=== PATIENT | female | born 1940 | race Caucasian/White ===

== ENCOUNTER 2023-03-31 16:11 | Observation (INO) | payer OTHER, SELFPAY ==
[2023-03-31] VITALS (11 sets, daily range): BP systolic 118–148; BP diastolic 56–81; PULSE 61–78; RESP 15–24; TEMP 37–37.9; O2SAT 91–99; BMI 34.9; BMI 35.4
--- NOTE | 2023-03-31 14:30 | US_ITS ---
[place] [id number] Patient Name: JOHANNA ESPINOSA MRN: [id number] date: 1940 Sex: F Assigned Patient Location: [place] Current Patient Location: [place] Accession/Order Number: [id number] Exam Date: 03/31/2023 14:30 Report Date: 04/01/2023 22:58 At the request of: ATIYA Shaffer SISTER Procedure: US carotid duplex BI EXAMINATION: US carotid duplex BI HISTORY: syncope COMPARISON: No relevant comparison available. TECHNIQUE: Duplex Doppler ultrasound analysis of carotid and vertebral arteries. . Bilateral carotid arterial duplex examination was performed using B-mode, color flow and spectral analysis. Carotid stenosis is reported according to validated velocity parameters, similar to NASCET criteria. FINDINGS: RIGHT CAROTID ARTERY: Marked irregular atherosclerotic plaque within carotid bulb; 75% diameter reduction and 71% area reduction. RIGHT VERTEBRAL: Antegrade flow. Subclavian: PSV: 125.9 cm/s EDV: 0.0 cm/s CCA: Prox: PSV: 59.0 cm/s EDV: 7.5 cm/s Mid: PSV: 60.7 cm/s EDV: 7.5 cm/s Distal: PSV: 54.6 cm/s EDV: 7.5 cm/s BULB: PSV: Not measured ICA: Prox: PSV: 202.2 cm/s EDV: 35.1 cm/s Mid: PSV: 149.2 cm/s EDV: 23.9 cm/s Distal: PSV: 185.4 cm/s EDV: 0.0 cm/s ECA: PSV: 176.9 cm/s EDV: 0.0 cm/s VERTEBRAL: PSV: 53.7 cm/s EDV: 5.4 cm/s ICA/CCA ratio: PSV: 3.7 EDV: 4.7 LEFT CAROTID ARTERY: Moderate atherosclerotic disease within distal common carotid and within the carotid bulb; 68% area reduction of the bulb. LEFT VERTEBRAL: Antegrade flow. Subclavian: PSV: 83.8 cm/s EDV: 9.5 cm/s CCA: Prox: PSV: 95.1 cm/s EDV: 0.0 cm/s Mid: PSV: 62.8 cm/s EDV: 0.0 cm/s Distal: PSV: Not measured BULB: PSV: 59.6 cm/s EDV: 6.3 cm/s ICA: Prox: PSV: 66.0 cm/s EDV: 14.4 cm/s Mid: PSV: 82.2 cm/s EDV: 22.4 cm/s Distal: PSV: EDV: ECA: PSV: 87.0 cm/s EDV: 0.0 cm/s VERTEBRAL: PSV: 45.5 cm/s EDV: 9.8 cm/s ICA/CCA ratio: PSV: 0.9 EDV: US/US carotid duplex BI IMPRESSION: 1. Marked atherosclerotic disease and 50-69% flow stenosis within the right carotid bulb. 2. Moderate atherosclerotic disease in 0-49% flow stenosis within left carotid bulb. Spectral Doppler US Thresholds Stenosis (%) PSV (cm/sec) VICA/VCCA 0-49 <150 <2.5 50-69 150-225 2.5-4.0 >70 >225 >4.0 Electronically authenticated by: PRIOM HARRISON Date: 04/01/2023 22:58
--- NOTE | 2023-03-31 16:20 | ECG_ITS ---
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
--- NOTE | 2023-03-31 16:20 | XR_ITS ---
The [address] [address] Patient Name: JOHANNA ESPINOSA MRN: [id number] date: 1940 Sex: F Assigned Patient Location: ER Current Patient Location: ED.MAIN Accession/Order Number: [id number] Exam Date: 03/31/2023 16:32 Report Date: 03/31/2023 17:43 At the request of: ADAN MEJIA Procedure: XR chest 1V EXAM: XR chest 1V REASON FOR EXAM: Female, 83 years, syncope. TECHNIQUE: A single AP view of the chest is performed. COMPARISON: 07/24/2012. FINDINGS: Cardiac monitoring leads overlie the chest. The lungs are expanded and clear. Normal pleura. Surgical clips project over the left chest. Normal size heart. Normal mediastinum and bradley. Normal visualized pulmonary arteries. Normal visualized aortic arch and descending thoracic aorta. Normal visualized thoracic spine. Normal visualized ribs, clavicles, and shoulders. There is no demonstrated abnormality of the visualized soft tissue structures of the upper abdomen. XR/XR chest 1V IMPRESSION: No acute process in the chest. Electronically authenticated by: JO-ANN WEAVER Date: 03/31/2023 17:43
--- NOTE | 2023-03-31 16:22 | ED_ITS ---
HPI - Syncope General Chief Complaint: Syncope Stated Complaint: SOB Time Seen by Provider: 03/31/23 16:20 Source: patient Mode of arrival: walk-in History of Present Illness HPI narrative: 83-year-old female presents for two syncopal episodes. She hasn't been feeling well today and cannot explain that any better. She is a poor historian. Family states that she passed out getting her into the car at home. She also passed out 2nd time in the registration area of the emergency department. She is complaining of headache and she has had no fever vomiting and doesn't complain of abdominal pain. Related Data Allergies Allergy/AdvReac Type Severity Reaction Status Date / Time No Known Drug Allergies Allergy Verified 03/31/23 17:26 Review of Systems ROS Narrative A ten point review of systems is negative except as noted above. Exam Narrative Exam Narrative: Nurses note and vital signs reviewed and patient is not hypoxic. General: The patient appears in no apparent distress from a respiratory standpoint. Skin: Warm, dry, no pallor noted. There is no rash noted. Head: Normocephalic, atraumatic Eye: Normal conjunctiva, no drainage Ears, Nose, Mouth, and Throat: oral mucosa is moist. Nares patent. Cardiovascular: Regular Rate and Rhythm Respiratory: Patient is in no distress, no accessory muscle use, lungs are clear to auscultation, no wheezing, rales or rhonchi Back: non-tender GI: soft and nontender Musculoskeletal: The patient has no evidence of calf tenderness, no pitting edema, symmetrical pulses noted bilaterally Neurological: A&O, she is tremorous Psychiatric: Cooperative Constitutional Vital Signs, click to edit/add: Last Vital Signs Temp 98.7 F 03/31/23 16:16 Pulse 66 03/31/23 17:00 Resp 15 03/31/23 18:11 BP 123/61 03/31/23 18:11 Pulse Ox 96 03/31/23 18:11 O2 Del Method Room Air 03/31/23 17:33 Course Vital Signs Vital signs: Vital Signs Temperature 98.7 F 03/31/23 16:16 Pulse Rate 70 03/31/23 16:16 Respiratory Rate 16 03/31/23 16:16 Blood Pressure 148/81 H 03/31/23 16:16 Pulse Oximetry 96 03/31/23 16:16 Oxygen Delivery Method Room Air 03/31/23 16:16 Temperature 98.7 F 03/31/23 16:16 Pulse Rate 66 03/31/23 17:00 Respiratory Rate 15 03/31/23 18:11 Blood Pressure 123/61 03/31/23 18:11 Pulse Oximetry 96 03/31/23 18:11 Oxygen Delivery Method Room Air 03/31/23 17:33 MDM - Syncope MDM Narrative Medical decision making narrative: Her workup including two troponins is negative. She has passed out twice today and she'll be admitted for observation. She's had no dysrhythmias here in the emergency department. Findings are discussed with the patient and her family. Differential Diagnosis Differential diagnosis: Likely syncope due to orthostatic hypotension, vasovagal syncope and complete atrioventricular block Lab Data Attestation: I reviewed the patient's lab results. Labs: Lab Results 03/31/23 03/31/23 03/31/23 Range/Units 16:18 16:21 17:46 WBC 5.7 (4.0-11.0) 10^3/uL RBC 3.94 L (4.20-5.40) 10^6/uL Hgb 11.6 L (12.0-16.0) g/dL Hct 36.3 (36.0-48.0) % MCV 92.1 (81.0-99.0) fL MCH 29.4 (26.7-34.0) pg MCHC 32.0 (29.9-35.2) g/dL RDW 13.7 (11.0-15.0) % Plt Count 107 L (150-450) 10^3/uL MPV 11.1 (9.5-13.5) fL Neut % (Auto) 67.2 (43.0-75.0) % Lymph % (Auto) 24.4 (20.5-60.0) % [place] % (Auto) 7.9 (1.7-12.0) % Eos % (Auto) 0.0 L (0.9-7.0) % Baso % (Auto) 0.2 (0.2-2.0) % Neut # (Auto) 3.9 (1.4-6.5) 10^3/uL Lymph # (Auto) 1.4 (1.2-3.8) 10^3/uL [place] # (Auto) 0.5 (0.3-0.8) 10^3/uL Eos # (Auto) 0.0 (0.0-0.7) 10^3/uL Baso # (Auto) 0.0 (0.0-0.1) 10^3/uL Abs Immat Gran (auto) 0.02 (0.00-0.03) 10^3/uL Imm/Tot Granulo (auto) 0.3 (0.0-0.5) % Sodium 140 (136-145) mmol/L Potassium 3.9 (3.5-5.1) mmol/L Chloride 103 (98-107) mmol/L Carbon Dioxide 25.3 (21.0-32.0) mmol/L Anion Gap 15.6 BUN 24.0 H (7.0-18.0) mg/dL Creatinine 1.17 H (0.55-1.02) mg/dL Est GFR ( Amer) 54 L (>=60) Est GFR (Non-Af Amer) 44 L (>=60) BUN/Creatinine Ratio 20.5 Glucose 121 H (74-106) mg/dL Calcium 8.8 (8.5-10.1) mg/dL Troponin I High Sens 15.5 15.8 (4.0-51.3) pg/mL POC Glucose 117 H (74-106) mg/dL Imaging Data Chest x-ray: Radiologist's impression: Procedure: XR chest 1V EXAM: XR chest 1V REASON FOR EXAM: Female, 83 years, syncope. TECHNIQUE: A single AP view of the chest is performed. COMPARISON: 07/24/2012. FINDINGS: Cardiac monitoring leads overlie the chest. The lungs are expanded and clear. Normal pleura. Surgical clips project over the left chest. Normal size heart. Normal mediastinum and bradley. Normal visualized pulmonary arteries. Normal visualized aortic arch and descending thoracic aorta. Normal visualized thoracic spine. Normal visualized ribs, clavicles, and shoulders. There is no demonstrated abnormality of the visualized soft tissue structures of the upper abdomen. IMPRESSION: No acute process in the chest. Electronically authenticated by: JO-ANN WEAVER Date: 03/31/2023 17:43 ECG Data Attestation: I personally reviewed and interpreted this ECG as follows: (EKG on my interpretation shows sinus rhythm without acute change in a rate of 71.) Discharge Plan Discharge Chief Complaint: Syncope Clinical Impression: Syncope Patient Disposition: Admitted as Observation Time of Disposition Decision: 18:31 Condition: Good
[2023-03-31 16:27] LABS: Glucometer 117 mg/dL (74-106)
[2023-03-31 16:32] LABS: Basophils Percent Auto 0.2 % (0.2-2.0); Hematocrit 36.3 % (36.0-48.0); Hemoglobin 11.6 g/dL (12.0-16.0); Immature Granulocytes Abs Auto 0.02 10^3/uL (0.00-0.03); Immature Granulocytes Pct Auto 0.3 % (0.0-0.5); Lymphocytes Absolute Auto 1.4 10^3/uL (1.2-3.8); Lymphocytes Percent Auto 24.4 % (20.5-60.0); Mean Corpuscular Hemoglobin 29.4 pg (26.7-34.0); Mean Corpuscular Volume 92.1 fL (81.0-99.0); Mean Platelet Volume 11.1 fL (9.5-13.5); Monocytes Absolute Auto 0.5 10^3/uL (0.3-0.8); Monocytes Percent Auto 7.9 % (1.7-12.0); Neutrophils Absolute Auto 3.9 10^3/uL (1.4-6.5); Neutrophils Percent Auto 67.2 % (43.0-75.0); Platelet Count 107 10^3/uL (150-450); Red Blood Count 3.94 10^6/uL (4.20-5.40); Red Cell Distribution Width 13.7 % (11.0-15.0); White Blood Count 5.7 10^3/uL (4.0-11.0)
[2023-03-31 16:44] LABS: Anion Gap 15.6; BUN Creatinine Ratio 20.5; Calcium 8.8 mg/dL (8.5-10.1); Carbon Dioxide 25.3 mmol/L (21.0-32.0); Chloride 103 mmol/L (98-107); Estimated GFR (African America 54 (>=60); Estimated GFR (Non-African Ame 44 (>=60); Glucose 121 mg/dL (74-106); Potassium 3.9 mmol/L (3.5-5.1); Sodium 140 mmol/L (136-145); Troponin I High Sensitivity 15.5 pg/mL (4.0-51.3)
[2023-03-31 18:10] LABS: Troponin I High Sensitivity 15.8 pg/mL (4.0-51.3)
[2023-03-31 19:53] LABS: Glucometer 101 mg/dL (74-106)
--- NOTE | 2023-03-31 21:34 | W.PM.TELEPN ---
Progress Note: Subjective Subjective Interval history: CC: Cough, this of breath, weakness, decreased appetite, recurrent syncopal episodes HPI: This is a very pleasant 83 years old female who presents with above complaints. Patient provides information by herself. Patient stating that over the course of the last 2 weeks she has not been feeling well describing cardiac, productive cough, generalized weakness and fatigue, shortness of breath. Patient been taking azithromycin orally. No much relief. She also complains of decreased appetite and getting progressively weak. She syncopized earlier today and then syncopized again in the emergency room. No arrhythmia during the event. Exam Narrative Exam Narrative: ROS: 1.General: no fever, chills, not in distress 2.HEENT: no PUENTE, no blurry vision, no swallow problems, no nasal congestion, no sore throat 3.Pulmonary: See above 4.CVS: no CP, no palpitations, no JOSE, no SOB, no intermittent claudication 5.GI: no nausea, vomiting or diarrhea, no abdominal pain, no constipation, no hematemesis or hematochezia 6.: no renal colic, no hematuria, urinary frequency or urgency 7.Extremities: no edema 8.Neurological: no dizziness, vertigo, double or blurry vision, no no focal weakness, no paresthesia, no swallow or speech problems 9.Musculosceletal: no joint pains, no joint swelling, no back pain 10.Dermatological: no skin rashes, no lesions, no pruritus 11.Hematological: no bleeding, no hx/o clots 12.Endocrinological: no heat/cold intolerance, + hx/o diabetes 13.Psychiatric: no suicidal or homicidal thoughts Physical Exam: Not in distress, pleasant, lucid, cooperative, Head - atraumatic, eyes - pupils equal, round, reactive to light, extra ocular movement intact, MMM Neck - supple, thyroid not enlarged, LN not palpated Lungs -coarse breath sounds bilaterally, mild wheezing CVS - heart sounds S1, S2, no additional murmurs gallop, regular rate and rhythm Gastrointestinal?abdomen is soft, non-tender, non-distended, no organomegaly, positive bowel sounds Extremities no clubbing, cyanosis or edema Neurological?cranial nerve II?XII grossly intact, no meningeal signs, no cerebellar signs, no sensory deficit Musculoskeletal - DJD related changes in multiple joints, no effusions, ROM preserved Dermatological - the skin dry, warm, no rashes Psychiatric?patient is AAO X3, patient has normal affect Constitutional Vital Signs, click to edit/add: Last Vital Signs Temp 98.6 F 03/31/23 19:30 Pulse 65 03/31/23 20:08 Resp 24 03/31/23 19:30 BP 125/69 03/31/23 19:30 Pulse Ox 92 L 03/31/23 19:30 O2 Del Method Room Air 03/31/23 20:03 Progress Note: Objective Labs Labs: Short CBC 03/31/23 Range/Units 16:21 WBC 5.7 (4.0-11.0) 10^3/uL Hgb 11.6 L (12.0-16.0) g/dL Hct 36.3 (36.0-48.0) % Plt Count 107 L (150-450) 10^3/uL BMP 03/31/23 16:21 Sodium 140 Potassium 3.9 Chloride 103 Carbon Dioxide 25.3 BUN 24.0 H Creatinine 1.17 H Glucose 121 H Calcium 8.8 Progress Note: A&P Assessment and Plan (1) Syncope: Assessment and Plan: Suspect related to poor oral intake lately. I noted patient been taking Lasix?going to hold that. I started patient on gentle, judicious IV fluid resuscitation Continue to monitor on telemetry Fall precautions No significant orthostatic changes and vital signs on admission I ordered echocardiogram and ultrasound of the carotids to delineate further (2) Bronchitis with bronchospasm: Assessment and Plan: Patient started on empiric, broad-spectrum antibiotics I wanted sputum culture Started patient on bronchodilators I added inhaled and systemic steroids Follow-up cultures, adjust as needed Probiotics also started. (3) Diabetes: Assessment and Plan: I am going to continue with ADA diet, coverage with insulin sliding scales based on Accu-Cheks. I started patient on long-acting insulin as well. (4) Hypertension: Assessment and Plan: Continue with home dose of losartan. Lasix on hold Plan As the provider for the telehealth service, I attest that I introduced myself to the patient, provided my credentials, disclosed by location and determined that based on a review of the patient's chart and discussion with members of the patient's treatment team, telemedicine via real-time, 2 way, and interactive audio and video platform is an appropriate and effective means of providing the service. ?The patient and I mutually agree this visit is appropriate for telemedicine. ?The virtual encounter was taken place from? [place], [place]. ?The encounter took approximately 35 minutes. ?The nurse was present during the entire time and I was able to move the stethoscope in appropriate directions. ?The patient was evaluated at the Hospital ? Portions of this note may be dictated using [employer] voice recognition software. Variances in spelling and vocabulary are possible and unintentional. Not all errors may be caught and/or corrected. Please notify the author if any discrepancies are noted and/or if the meaning of any statement is unclear.? ? Patient verbally consented for treatment via video visit with patient currently located at the [facility] and provider located in [place]. Telemedicine Attestation Telemedicine Attestation I conducted this encounter from [[place]] via secure live, [id number] video conference with the patient, located at [facility] with [syncopal]. Prior to the interview, the risks and benefits of telemedicine were discussed with the patient and verbal consent was obtained.
[2023-03-31] MEDS: 0.9 % SODIUM CHLORIDE 1,000 ML 75 ML IV (22:15)
[2023-03-31] MEDS: METHYLPREDNISOLONE SOD SUCC PF 40 MG/ML VIAL IVP (22:15)
[2023-03-31] MEDS: CEFTRIAXONE 1,000 MG in 0.9 % SODIUM CHLORIDE 50 ML 100 MG IV (22:16)
[2023-03-31] MEDS: BACLOFEN 10 MG TABLET PO (22:16)
[2023-03-31] MEDS: ACETAMINOPHEN 325 MG TABLET 650 MG PO (22:39)
[2023-03-31] MEDS: GUAIFENESIN 200 MG/10 ML LIQUID 100 MG PO (22:39)
[2023-03-31] MEDS: IPRATROPIUM/ALBUTEROL SULFATE 3 ML AMPUL.NEB IH (23:15)
[2023-03-31 23:27] LABS: SARS-CoV-2 Ag POSITIVE (NEGATIVE)
[2023-04-01] VITALS (18 sets, daily range): BP systolic 100–135; BP diastolic 51–75; PULSE 54–70; RESP 2–20; TEMP 36.4–36.7; O2SAT 1–97
--- NOTE | 2023-04-01 00:03 | PC.NURSE ---
Soccer Commentator notified Oneil Randle daughter emergency contact [phone] that patient is COVID positive.
[2023-04-01] MEDS: LEVOTHYROXINE SODIUM 25 MCG TABLET 50 MCG PO (04:48)
[2023-04-01] MEDS: METHYLPREDNISOLONE SOD SUCC PF 40 MG/ML VIAL IVP ×3 (04:48→21:17)
[2023-04-01] MEDS: BACLOFEN 10 MG TABLET PO ×3 (04:49→21:17)
[2023-04-01 05:15] LABS: Hemoglobin 11.2 g/dL (12.0-16.0); Immature Granulocytes Abs Auto 0.03 10^3/uL (0.00-0.03); Immature Granulocytes Pct Auto 0.7 % (0.0-0.5); Lymphocytes Absolute Auto 0.6 10^3/uL (1.2-3.8); Lymphocytes Percent Auto 12.8 % (20.5-60.0); Mean Corpuscular HGB Conc 30.3 g/dL (29.9-35.2); Mean Corpuscular Hemoglobin 29.1 pg (26.7-34.0); Mean Corpuscular Volume 96.1 fL (81.0-99.0); Mean Platelet Volume 11.8 fL (9.5-13.5); Monocytes Absolute Auto 0.3 10^3/uL (0.3-0.8); Monocytes Percent Auto 5.8 % (1.7-12.0); Neutrophils Absolute Auto 3.5 10^3/uL (1.4-6.5); Neutrophils Percent Auto 80.7 % (43.0-75.0); Platelet Count 90 10^3/uL (150-450); Red Blood Count 3.85 10^6/uL (4.20-5.40); Red Cell Distribution Width 13.8 % (11.0-15.0); White Blood Count 4.3 10^3/uL (4.0-11.0)
[2023-04-01 05:21] LABS: Anion Gap 15.4; BUN Creatinine Ratio 20.1; Calcium 8.4 mg/dL (8.5-10.1); Carbon Dioxide 24.8 mmol/L (21.0-32.0); Chloride 104 mmol/L (98-107); Estimated GFR (African America 44 (>=60); Estimated GFR (Non-African Ame 36 (>=60); Glucose 274 mg/dL (74-106); Potassium 4.2 mmol/L (3.5-5.1); Sodium 140 mmol/L (136-145)
--- NOTE | 2023-04-01 09:14 | P.HP_ITS ---
H&P: HPI History of Present Illness Chief complaint: SOB syncope Narrative: patient is a 83-year-old female with past medical history of chronic obstructive pulmonary disease, congestive heart failure, hypothyroidism, hypertension, insulin-dependent type 2 diabetes,who presented to the Emergency Room last night with shortness of breath and weakness. She had also had two syncopal episodes within the last day.on admission exam today she is very tearful and wants to go home. She states that her family and friends encouraged her to come to the hospital. She notes a productive cough, generalized weakness and fatigue and some shortness of breath over the last two weeks. She is seen her primary care physician who placed her on some azithromycin without much relief. She had an episode of syncope earlier today and one in the emergency room but there was no arrhythmia noted during the event per Emergency Room notes.she denies having any issues like this before. She was found to be Covid positive. She was admitted to the hospital for further evaluation. Review of Systems ROS Narrative ROS: a complete review of systems were reviewed with patient and are positive as below or listed in History of Chief Complaint. General: fever, chills, no night sweats Head: no headache, trauma, visual changes, nausea or vomiting Skin: no reported rashes, itching or sores Eyes: no blurriness of vision Ears: no reported hearing loss, vertigo, earache, or tinnitus Throat: no sore throat, hoarseness, swelling of neck, or tongue pain Heart: no chest pain Lungs: some shortness of breath and cough GI: no diarrhea or vomiting/nausea Urinary: no urinary urgency, frequency or pain Neuro: no numbness or tingling HEM: no bleeding issues or bruising ENDO: no thyroid problems Psych: no anxiety or depression [facility] Medical History (Updated 04/01/23 @ 16:27 by Yudy Zheng DO) Swelling ?R60.9 - Edema, unspecified (ICD-10) 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) Cervix cancer ?C53.9 - Malignant neoplasm of cervix uteri, unspecified (ICD-10) Colon cancer ?C18.9 - Malignant neoplasm of colon, unspecified (ICD-10) Lung cancer ?C34.90 - Malignant neoplasm of unspecified part of unspecified bronchus or lung (ICD-10) Diabetes ?E11.9 - Type 2 diabetes mellitus without complications (ICD-10) Surgical History History of hysterectomy ?Z90.710 - Acquired absence of both cervix and uterus (ICD-10) History of reversal of ileostomy ?Z98.890 - Other specified postprocedural states (ICD-10) Status post partial removal of lung ?Z90.2 - Acquired absence of lung [part of] (ICD-10) Family History Other Family history of cancer Family history of diabetes mellitus Social History Within the past year, how often did you have a drink containing alcohol: never Within the past year, how often did you have six or more drinks on one occasion: never Score interpretation: A score less than 3 is consistent with normal alcohol consumption. Smoking status: Never smoker Non-prescribed substance use: denies use Previous occupational history: retired Known occupational exposures/hazards: No Highest level of school completed/degree received: high school graduate Meds Home Medications and Allergies Home Medications Medication Instructions Recorded Confirmed Type albuterol sulfate 2.5 mg/3 mL 2.5 mg continuous nebulization Q8H 03/31/23 03/31/23 History (0.083 %) solution for nebulization PRN shortness of breath or wheezing albuterol sulfate 90 mcg/actuation 1 puff inhalation Q6H PRN wheezing 03/31/23 03/31/23 History aerosol inhaler azithromycin 250 mg tablet 250 mg PO DAILY 03/31/23 03/31/23 History baclofen 10 mg tablet 10 mg PO Q8H 03/31/23 03/31/23 History ergocalciferol (vitamin D2) 1,250 1,250 mcg PO .weekly 03/31/23 03/31/23 History mcg (50,000 unit) capsule furosemide 20 mg tablet 20 mg PO DAILY 03/31/23 03/31/23 History insulin aspart U-100 100 unit/mL 5 unit subcut .with meals 03/31/23 03/31/23 History (3 mL) subcutaneous pen (Novolog FlexPen U-100 Insulin aspart) insulin degludec 200 unit/mL (3 30 unit subcut .nightly 03/31/23 03/31/23 History mL) subcutaneous pen (Tresiba FlexTouch U-200 insulin) levothyroxine 50 mcg tablet 50 mcg PO DAILY 03/31/23 03/31/23 History losartan 25 mg tablet 25 mg PO DAILY 03/31/23 03/31/23 History Allergies Allergy/AdvReac Type Severity Reaction Status Date / Time No Known Drug Allergies Allergy Verified 03/31/23 19:50 Exam Narrative Exam Narrative: General: Patient is alert, and oriented to person, place and time with normal affect, proper hygiene Skin: no visible rashes, or ulcers Head: atraumatic, acephalic Eyes: PERRLA, no nystagmus present, conjunctiva clear, no scleral icterus Ears: normal Tympanic Membrane, normal gross auditory acuity Heart: Normal rate and rhythm, no murmurs/rubs/gallops Lungs: diminished breath sounds all lung rico with crackles bilaterally Abdomen: Normal audible bowel sounds, no distension, No palpable masses, no organomegaly, no rebound/guarding/ or rigidity Musculoskeletal: no swelling bilateral lower extremities Vascular: Normal carotid, radial, femoral, posterior tibial, and dorsalis pedis pulses Lymph: no supraclavicular, axillary, or anterior/posterior cervical adenopathy Neuro: CN II-X grossly intact, normal sensation upper and lower extremities Constitutional Vital Signs, click to edit/add: Last Vital Signs Temp 97.5 F L 04/01/23 06:00 Pulse 63 04/01/23 08:17 Resp 18 04/01/23 06:00 BP 100/51 04/01/23 06:00 Pulse Ox 96 04/01/23 08:17 O2 Del Method Nasal Cannula 04/01/23 06:00 O2 Flow Rate 2 04/01/23 04:15 Results Labs Labs: Short CBC 03/31/23 04/01/23 Range/Units 16:21 04:48 WBC 5.7 4.3 (4.0-11.0) 10^3/uL Hgb 11.6 L 11.2 L (12.0-16.0) g/dL Hct 36.3 37.0 (36.0-48.0) % Plt Count 107 L 90 L (150-450) 10^3/uL BMP 03/31/23 04/01/23 16:21 04:48 Sodium 140 140 Potassium 3.9 4.2 Chloride 103 104 Carbon Dioxide 25.3 24.8 BUN 24.0 H 28.0 H Creatinine 1.17 H 1.39 H Glucose 121 H 274 H Calcium 8.8 8.4 L Assessment and Plan Assessment and Plan (1) Bronchitis with bronchospasm: Assessment and Plan: continue with duonebs, oxygen therapy and azithromycin, rocephin. And solumedrol (2) COVID-19: Assessment and Plan: causing #1 (3) Syncope: Assessment and Plan: carotid ultrasounds, monitor electrolytes, BP and telemetry, continue IVF. Echo will not be completed until monday at this hospital. 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
[2023-04-01] MEDS: L. ACIDOPHILUS/L.BULGARICUS 1 PACKET GRAN.PACK PO ×3 (10:15→16:31)
[2023-04-01] MEDS: LOSARTAN POTASSIUM 25 MG TABLET PO (10:15)
[2023-04-01] MEDS: AZITHROMYCIN 250 MG TABLET PO (10:16)
[2023-04-01] MEDS: 0.9 % SODIUM CHLORIDE 1,000 ML 75 ML IV (11:40)
[2023-04-01 11:46] LABS: Glucometer 526 mg/dL (74-106)
[2023-04-01 11:46] LABS: Glucometer 471 mg/dL (74-106)
[2023-04-01] MEDS: INSULIN ASPART 300 UNIT/3 ML PEN SUBQ ×3 (11:46→21:24)
[2023-04-01] MEDS: INSULIN DETEMIR 300 UNIT/3 ML INSULN.PEN 10 UNIT SUBQ (21:25)
[2023-04-01] MEDS: CEFTRIAXONE 1,000 MG in 0.9 % SODIUM CHLORIDE 50 ML 100 MG IV (21:30)
[2023-04-01 21:32] LABS: Glucometer 356 mg/dL (74-106)
[2023-04-01] MEDS: ACETAMINOPHEN 325 MG TABLET 650 MG PO (21:37)
[2023-04-02] VITALS (9 sets, daily range): BP systolic 145; BP diastolic 76; PULSE 56–67; RESP 20; TEMP 36.3; O2SAT 91–95
[2023-04-02] MEDS: 0.9 % SODIUM CHLORIDE 1,000 ML 75 ML IV (01:27)
[2023-04-02 04:48] LABS: Hematocrit 33.1 % (36.0-48.0); Hemoglobin 10.6 g/dL (12.0-16.0); Immature Granulocytes Abs Auto 0.03 10^3/uL (0.00-0.03); Immature Granulocytes Pct Auto 0.7 % (0.0-0.5); Lymphocytes Absolute Auto 0.9 10^3/uL (1.2-3.8); Lymphocytes Percent Auto 23.3 % (20.5-60.0); Mean Corpuscular Hemoglobin 29.4 pg (26.7-34.0); Mean Corpuscular Volume 91.7 fL (81.0-99.0); Mean Platelet Volume 11.7 fL (9.5-13.5); Monocytes Absolute Auto 0.3 10^3/uL (0.3-0.8); Monocytes Percent Auto 6.2 % (1.7-12.0); Neutrophils Absolute Auto 2.8 10^3/uL (1.4-6.5); Neutrophils Percent Auto 69.8 % (43.0-75.0); Platelet Count 109 10^3/uL (150-450); Red Blood Count 3.61 10^6/uL (4.20-5.40); Red Cell Distribution Width 13.7 % (11.0-15.0)
[2023-04-02] MEDS: METHYLPREDNISOLONE SOD SUCC PF 40 MG/ML VIAL IVP (05:12)
[2023-04-02] MEDS: LEVOTHYROXINE SODIUM 25 MCG TABLET 50 MCG PO (05:12)
[2023-04-02] MEDS: BACLOFEN 10 MG TABLET PO (05:12)
[2023-04-02 05:36] LABS: Alanine Aminotransferase 13 U/L (14-59); Albumin Globulin Ratio 0.7; Albumin Level 2.4 g/dL (3.4-5.0); Alkaline Phosphatase 46 U/L (46-116); Anion Gap 15.7; Aspartate Amino Transferase 17 U/L (15-37); BUN Creatinine Ratio 30.3; Bilirubin Total 0.2 mg/dL (0.2-1.0); Calcium 8.5 mg/dL (8.5-10.1); Carbon Dioxide 21.2 mmol/L (21.0-32.0); Chloride 110 mmol/L (98-107); Estimated GFR (African America 58 (>=60); Estimated GFR (Non-African Ame 48 (>=60); Globulin 3.5 g/dL; Glucose 238 mg/dL (74-106); Potassium 3.9 mmol/L (3.5-5.1); Sodium 143 mmol/L (136-145); Total Protein 5.9 g/dL (6.4-8.2)
--- NOTE | 2023-04-02 08:07 | PM.DS1 ---
DS: Providers Provider Date of admission: 03/31/23 19:27 Primary care physician: BAUTISTA THAYER Admitting clinician: Yudy Zheng Discharging clinician: Yudy Zheng DS: Diagnosis Discharge Diagnosis (1) Bronchitis with bronchospasm: (2) COVID-19: (3) Syncope: Qualifiers: Syncope type: unspecified Qualified Code(s): R55 - Syncope and collapse (4) Diabetes: Qualifiers: Diabetes mellitus complication status: with hyperglycemia Diabetes mellitus service dispatcher insulin use: with service dispatcher use Diabetes mellitus type: type 2 Qualified Code(s): E11.65 - Type 2 diabetes mellitus with hyperglycemia; Z79.4 - penitentiary (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 of insulin (5) Hypertension: Qualifiers: Hypertension type: primary hypertension Qualified Code(s): I10 - Essential (primary) hypertension (6) PATRICIA (acute kidney injury): DS: Summary Hospital Course Hospital Course: patient is a 83-year-old female with past medical history of chronic obstructive pulmonary disease, congestive heart failure, hypothyroidism, hypertension, insulin-dependent type 2 diabetes,who presented to the Emergency Room with shortness of breath and weakness and two episodes of syncope. She was found to be Covid positive. She was admitted to the hospital for further evaluation. For Bronchitis she was continued with duonebs, oxygen therapy and azithromycin, rocephin, and solumedrol. Chest X-ray was negative for pneumonia. Also started on Paxlovid for Covid 19. At the time of discharge she is not requiring oxygen and feels much improved. I had a long discussion with her Daughter Oneil today about findings of moderate right carotid artery stenosis <65% and mild on the left. I do not think this caused syncopal episode. She has had no episodes on Telemetry. Labs are stable. She can discuss with her Family physician on the need for ECHO as we cannot get inpatient until tomorrow anyways. Patient wishes to go home. She will complete the paxlovid, 4 more days of azithromycin, prednisone 20mg DAily x 5 days and given mucinex for cough. She is to return to the ER with any worsening signs or symptoms. Daughter agrees with plan. Status at Discharge Functional status at discharge: uses cane/walker Overall status at discharge: patient is progressing back to baseline Time Spent with Patient Time attestation: Total time spent providing and/or coordinating discharge services: Time spent: greater than 30 minutes Exam Narrative Exam Narrative: General: Patient is alert, and oriented to person, place and time with normal affect, proper hygiene Skin: no visible rashes, or ulcers Head: atraumatic, acephalic Eyes: PERRLA, no nystagmus present, conjunctiva clear, no scleral icterus Ears: normal Tympanic Membrane, normal gross auditory acuity Heart: Normal rate and rhythm, no murmurs/rubs/gallops Lungs: diminished breath sounds all lung rico but no crackles or wheezes bilaterally Abdomen: Normal audible bowel sounds, no distension, No palpable masses, no organomegaly, no rebound/guarding/ or rigidity Musculoskeletal: no swelling bilateral lower extremities Vascular: Normal carotid, radial, femoral, posterior tibial, and dorsalis pedis pulses Lymph: no supraclavicular, axillary, or anterior/posterior cervical adenopathy Neuro: CN II-X grossly intact, normal sensation upper and lower extremities Constitutional Vital Signs, click to edit/add: Last Vital Signs Temp 97.4 F L 04/02/23 05:20 Pulse 58 L 04/02/23 06:00 Resp 20 04/02/23 05:20 BP 145/76 H 04/02/23 05:20 Pulse Ox 93 L 04/02/23 06:00 O2 Del Method Room Air 04/02/23 05:20 O2 Flow Rate 1 04/01/23 21:47 DS: Data Data Completed and Pending Labs on day of discharge: Labs from last 24 hours 04/02/23 04/01/23 04/01/23 04:30 21:24 11:45 WBC 4.0 RBC 3.61 L Hgb 10.6 L Hct 33.1 L MCV 91.7 MCH 29.4 MCHC 32.0 RDW 13.7 Plt Count 109 L MPV 11.7 Neut % (Auto) 69.8 Lymph % (Auto) 23.3 Guthrie % (Auto) 6.2 Eos % (Auto) 0.0 L Baso % (Auto) 0.0 L Neut # (Auto) 2.8 Lymph # (Auto) 0.9 L Guthrie # (Auto) 0.3 Eos # (Auto) 0.0 Baso # (Auto) 0.0 Abs Immat Gran (auto) 0.03 Imm/Tot Granulo (auto) 0.7 H Sodium 143 Potassium 3.9 Chloride 110 H Carbon Dioxide 21.2 Anion Gap 15.7 BUN 33.0 H Creatinine 1.09 H Est GFR ( Amer) 58 L Est GFR (Non-Af Amer) 48 L BUN/Creatinine Ratio 30.3 Glucose 238 H Calcium 8.5 Total Bilirubin 0.2 AST 17 ALT 13 L Alkaline Phosphatase 46 Total Protein 5.9 L Albumin 2.4 L Globulin 3.5 Albumin/Globulin Ratio 0.7 POC Glucose 356 H 471 H 04/01/23 11:42 WBC RBC Hgb Hct MCV MCH MCHC RDW Plt Count MPV Neut % (Auto) Lymph % (Auto) Guthrie % (Auto) Eos % (Auto) Baso % (Auto) Neut # (Auto) Lymph # (Auto) Guthrie # (Auto) Eos # (Auto) Baso # (Auto) Abs Immat Gran (auto) Imm/Tot Granulo (auto) Sodium Potassium Chloride Carbon Dioxide Anion Gap BUN Creatinine Est GFR ( Amer) Est GFR (Non-Af Amer) BUN/Creatinine Ratio Glucose Calcium Total Bilirubin AST ALT Alkaline Phosphatase Total Protein Albumin Globulin Albumin/Globulin Ratio POC Glucose 526 H* Discharge Plan Discharge Disposition: (FBC OBS) Home, Self-Care Condition: Good Plan of Treatment: Take remaining pack of the Paxlovid provided to you at the time of discharge. Take and complete the azithromycin that was provided to you from your PCP. 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 Please return to the ER with any worsening signs or symptoms. Will need close follow up with PCP. Discharge Medications: New guaifenesin 100 mg/5 mL Liquid 100 mg PO Q8H PRN (Reason: Cough) 5 Days Qty: 45 0RF Paxlovid 300 mg (150 mg x 2)-100 mg Tablets,Dose Pack 2 ea PO BID Qty: 30 0RF prednisone 20 mg tablet 20 mg PO DAILY 5 Days Qty: 5 0RF Continued albuterol sulfate 90 mcg/actuation HFA aerosol inhaler 1 puff INHALATION Q6H PRN (Reason: wheezing) albuterol sulfate 2.5 mg /3 mL (0.083 %) solution for nebulization 2.5 mg continuous nebulization Q8H PRN (Reason: shortness of breath or wheezing) azithromycin 250 mg tablet 250 mg PO DAILY baclofen 10 mg tablet 10 mg PO Q8H furosemide 20 mg tablet 20 mg PO DAILY levothyroxine 50 mcg tablet 50 mcg PO DAILY losartan 25 mg tablet 25 mg PO DAILY insulin aspart U-100 [Novolog FlexPen U-100 Insulin] 100 unit/mL (3 mL) insulin pen 5 unit SUBCUT .with meals insulin degludec [Tresiba FlexTouch U-200] 200 unit/mL (3 mL) insulin pen 30 unit SUBCUT .nightly ergocalciferol (vitamin D2) 1,250 mcg (50,000 unit) capsule 1,250 mcg PO .weekly Activity: increase activity as tolerated Diet: advance to your usual diet Patient Instructions: COVID-19 (Coronavirus Disease 2019) (DC), COVID-19 and Chronic Health Conditions (DC) Forms: Portal Instructions Follow Up Appointments: please call dr berg office on monday and schedule a follow up appointment for within 5 to 7 days [phone]
[2023-04-02] MEDS: INSULIN ASPART 300 UNIT/3 ML PEN SUBQ ×2 (08:20→11:14)
[2023-04-02] MEDS: AZITHROMYCIN 250 MG TABLET PO (08:21)
[2023-04-02] MEDS: L. ACIDOPHILUS/L.BULGARICUS 1 PACKET GRAN.PACK PO ×2 (08:21→11:15)
[2023-04-02] MEDS: LOSARTAN POTASSIUM 25 MG TABLET PO (08:21)
[2023-04-02] MEDS: ERGOCALCIFEROL (VITAMIN D2) 1,250 MCG/50,000 UNITS CAPSULE 1250 MCG PO (08:26)
== END 2023-04-02 13:42 | disposition home or self-care (01) ==
LOC: ER 18:31 → MS 19:28
PROVIDERS: Internal Medicine; Admitting Provider Internal Medicine; Emergency Provider Emergency Medicine; PCP Family Medicine; Visit Provider Family Medicine
DX: U07.1 COVID-19 (principal); J20.9 Acute bronchitis, unspecified; R55 Syncope and collapse; E11.65 Type 2 diabetes mellitus with hyperglycemia; N17.9 Acute kidney failure, unspecified; I11.0 Hypertensive heart disease with heart failure; I50.9 Heart failure, unspecified; E03.9 Hypothyroidism, unspecified; J44.0 Chronic obstructive pulmonary disease with (acute) lower respiratory infection; I65.23 Occlusion and stenosis of bilateral carotid arteries; Q75.2 Hypertelorism; Z85.118 Personal history of other malignant neoplasm of bronchus and lung; Z85.41 Personal history of malignant neoplasm of cervix uteri; Z85.038 Personal history of other malignant neoplasm of large intestine; Z90.710 Acquired absence of both cervix and uterus; Z90.2 Acquired absence of lung [part of]; Z79.890 Hormone replacement therapy; Z79.4 Long term (current) use of insulin; Z79.899 Other long term (current) drug therapy; Z98.890 Other specified postprocedural states
CPT/HCPCS: 36415; 71045; 80048; 80053; 81001; 82948; 84484; 85025; 87070; 87205; 87811; 93005; 93880; 94640; 94761; 96361; 96365; 96375; 96376; 99285; G0378; J2920; Q3014

== ENCOUNTER 2023-05-22 07:59 | Outpatient (OUT) | payer OTHER, SELFPAY ==
--- NOTE | 2023-05-22 | PCN_ITS ---
CARDIAC STRESS TEST Requesting Physician: Procedure Date: 05/22/2023 INDICATION: Chest pain. METHODS: After risks, benefits and alternatives were explained, written informed consent was obtained. The patient was brought to the Stress Lab in a resting and fasting state. Lexiscan 0.4 mg was infused intravenously. She was monitored for the standard duration and transferred to the Nuclear Lab for imaging. There were no complications. STRESS TEST INFORMATION: Lexiscan 0.4 mg was infused intravenously. Resting heart rate was 60 beats per minute, increasing to a maximum of 87 beats per minute. Resting blood pressure was 122/60 with a maximum of 134/66. The patient had no symptoms. ELECTROCARDIOGRAPHY: Rest EKG: Sinus rhythm, 60 beats per minute, poor R-wave progression, cannot rule out anterior infarct, age indeterminate. Abnormal resting EKG. During Infusion and Recovery: No significant arrhythmia seen. No significant ST-T wave changes noted. FINAL IMPRESSIONS: 1. No ischemic EKG changes seen on Lexiscan Cardiolite Stress Test. 2. Nuclear images to be read, interpreted and reported in a separate dictation. LEONA
--- NOTE | 2023-05-22 | NM_ITS ---
Patient Name: JOHANNA ESPINOSA MR#: [id number] : 1940 Exam Date: 05/22/2023 Ordering Doctor: DR BAUTISTA THAYER M.D. RADIOLOGY REPORT PROCEDURE: NM BENJI PERF SPECT REST STR COMPARISON: None. INDICATIONS: CHEST PAIN DUE TO MYOCARDIAL ISCHEMIA, DM TYPE 2 TECHNIQUE: Exam Description: Stress/Rest one day protocol gated SPECT Rest Imagin.2 mCi Tc-99m Cardiolite IV on 05/22/2023 Stress Imaging 31.0 mCi Tc-99m Cardiolite IV on 05/22/2023 Exercise Protocol: 0.4 mg Lexiscan given IV Heart Rate (bpm): Rest: 59 Max: 87 PMHR: 63 Blood Pressure: Rest: 122/60 Max: 134/66 Symptoms: Rest and peak stress ECG findings were normal and the exercise portion of the study was normal per attending physician Dr. Galan . For more details please see separate cardiac stress test report. FINDINGS: QUALITY OF STUDY: Good. PERFUSION DEFECT: None. LOCATION: N/A SIZE: N/A. SEVERITY: N/A. TYPE: N/A. WALL MOTION: Normal. LV SIZE: Normal. 51 mL. TID / TCD: None; 0.6 LVEF: Normal. Calculated EF 82%. SUMMARY: Myocardial perfusion imaging study is NORMAL. CONCLUSION: 1. Normal exam, No reversible ischemia 2. Normal exercise test Dictated by: Alex Trujillo MD on 05/22/2023 at 14:16 Approved by: Alex Trujillo MD on 05/22/2023 at 14:17
--- OUTSIDE RECORDS SUMMARY | 2023-05-22 08:03 | XMS_ITS | CCD ---
Author Name Unknown Address [address] [place] [address] Organization [facility] Care Team Providers Care Pattern Grader Supervisor Name Role Phone JEOAVNY, DR BAUM Attending Unavailable JEOVANY, DR BAUM Consulting Unavailable JEOVANY, DR BAUM Primary Care Unavailable JEOVANY, DR BAUM Admitting Unavailable WEST, DR ALISA Shaffer Consulting Unavailable BAUTISTA THAYER Attending Unavailable BAUTISTA THAYER Attending Unavailable BAUTISTA THAYER Referring Unavailable HEMMERNO Attending Unavailable Problems Problem Classification Problem Date Documented Da te Episodic/Chronic Diabetes mellitus with complications (1 source) Type 2 diabetes mellitus with diabetic chronic kidney disease; Translations: [TYPE 2 DM W/DIABETIC CKD] Onset: 03-07-2022 Chronic Essential hypertension (4 sources) Essential (primary) hypertension; Translations: [ESSENTIAL PRIMARY HYPERTENSION] Onset: 03-02-2022 Chronic Nonspecific chest pain (1 source) Chest pain, unspecified; Translations: [CHEST PAIN UNSPECIFIED] Onset: 03-07-2022 Episodic Other lower respiratory disease (1 source) Shortness of breath; Translations: [SHORTNESS OF BREATH] Onset: 03-07-2022 Episodic Results Test Name Value Interpretation Reference Range Facil ity XR CHEST 2 VIEWSon 3 XR CHEST 2 VIEWS CLINICAL HISTORY: cough COMPARISON: FINDINGS: The cardiomediastinal silhouette is unremarkable. The lungs are free of infiltrates effusions or consolidations. There are surgical clips in the left lung base, indicating prior resection. The bones and soft tissues are within normal limits. IMPRESSION: There are no acute infiltrates. ELECTRONICALLY SIGNED BY: Gustavo Garcia MD Normal Not Available XR Abdomen 2 Viewson 023 XR Abdomen 2 Views CLINICAL INDICATION: Nausea, diarrhea, left lower quadrant pain for a few months. History of colon cancer with partial colorectal resection. COMPARISON: CT 10/05/20. FINDINGS: Cholecystectomy clips and anastomotic christa in the right abdomen and pelvis are noted. 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 There is a normal bowel gas pattern without evidence of bowel obstruction. There is a mild to moderate amount of stool throughout the colon. No free air. No evidence of organomegaly or ascites. No evident urinay calcifications. There are degenerative changes in the spine. IMPRESSION: 1. Mild to moderate colonic stool. 2. No acute intra-abdominal abnormality seen. Report reported and signed by Hilton Talbto on 08/22/2022 1642 Normal [facility] Sap Portal Developer NM STRESS/REST MULTIon 03-02 NM STRESS/REST MULTI Patient: WILLIE ESPINOSA Exam Date: 03/02/2022 : 1940 Gender:F Ordering : DR BAUTISTA THAYER M.D. Admission #: [id number] Family : Order #: [id number] CLICK HERE TO VIEW EXAM RADIOLOGY REPORT PROCEDURE: RADIONUCLIDE IMAGING STRESS/REST MULTI COMPARISON: None. INDICATIONS: Chest pain, shortness of breath TECHNIQUE: Exam Description: Stress/Rest one day protocol gated SPECT Rest Imagin.3 mCi Tc-99m Cardiolite IV on 03/02/2022 Stress Imaging 31.1 mCi Tc-99m Cardiolite IV on 03/02/2022 Exercise Protocol: 0.4 mg Lexiscan given IV Heart Rate (bpm): Rest: 72 Max: 83 PMHR: 61 Blood Pressure: Rest: 158/96 Max: 166/84 Symptoms: Rest and peak stress ECG findings were normal and the exercise portion of the study was normal per attending physician Dr. Rodriguez . For more details please see separate cardiac stress test report. FINDINGS: QUALITY OF STUDY: Good. PERFUSION DEFECT: None. LOCATION: N/A SIZE: N/A. SEVERITY: N/A. TYPE: N/A. WALL MOTION: Normal. LV SIZE: Normal. 70 mL. TID / TCD: None; 0.8 LVEF: Normal. Calculated EF 77%. SUMMARY: Myocardial perfusion imaging study is NORMAL. CONCLUSION: 1. No reversible ischemia 2. Normal exercise test Dictated by: Alisa Trujillo MD on 03/02/2022 at 13:15 Approved by: Alisa Trujillo MD on 03/02/2022 at 13:16 Normal [facility] RT min 3V*on 2020 XR elbow RT min 3V* [facility] Main [place] [address] [place] [address] XRay Report Signed Patient: Willie Espinosa MR#: [id number] : 1940 Acct:[id number] Age/Sex: 80 / F ADM Date: 01/10/21 Loc: XDUCLY Room: Type: [facility] Attending Dr: Delaney ALONZO Ordering Provider: CHERI Woodson Date of Service: 01/10/21 XR/XR elbow RT min 3V*: Elbow pain, right ([id number]) XR/XR shoulder RT min 2V*: Acute pain of right shoulder Copies to: CHERI Woodson XR shoulder RT min 2V*, XR elbow RT min 3V* 01/10/2021 12:04 PM SIGNS AND SYMPTOMS: Fall with pain in the anterior right shoulder and right elbow PROTOCOL: Frontal, Grashey, and scapular Y views of the right shoulder. Frontal, lateral, and oblique radial graphs of the right elbow. COMPARISON: None FINDINGS: Right shoulder: Degenerative changes are noted in the glenohumeral joint and acromial clavicular joint. There is cortical irregularity and sclerosis at the greater tuberosity suggesting underlying rotator cuff abnormalities. The visualized right hemithorax is grossly intact. There is no fracture or dislocation. Right elbow: The bones are in anatomic alignment. The joint spaces are preserved. There is no evidence of fracture or dislocation. No joint effusion or significant soft tissue swelling. XR/XR shoulder RT min 2V* IMPRESSION: Right shoulder: Degenerative changes are noted with findings suggesting underlying rotator cuff abnormalities. No evidence of acute displaced fracture. No dislocation. Right elbow: No fracture. No joint effusion or significant soft tissue swelling. Impression dictated by: Chavez Rivera M.D.01/10/2021 12:38 PM Dictation Location: [place] [address] Transcribed By: [facility] 01/10/21 1238 Dictated By: Chavez Rivera II, MD 01/10/21 1234 Signed By: 01/10/[address] [facility] Encounters Encounter Date Encounter Type Care Provider Facility Start: 04-25-2023 End: 04-25-2023 ambulatory BAUTISTA THAYER Not Available Start: 04-11-2023 End: 04-11-2023 ambulatory NO WINKLER Not Available Start: 03-27-2023 End: 03-28-2023 ambulatory BAUTISTA THAYER Not Available Start: 03-27-2023 End: 03-27-2023 ambulatory BAUTISTA THAYER Not Available Start: 03-02-2022 End: 03-03-[address] BAUTISTA THAYER Facility: Payers Date Payer Category Payer Unknown [id number] 1940 Unknown [id number] 1940 Unknown [id number] 1940 Unknown [id number] 1940 Unknown [id number] 1940 Unknown [id number] Summary Purpose Family History No Family History Records FoundNo Family History Records FoundNo Family History Records FoundNo Family History Records Found Advance Directives No Advanced Directives Records FoundNo Advanced Directives Records FoundNo Advanced Directives Records FoundNo Advanced Directives Records Found Additional Source Comments INFORMATION SOURCE (unrecogn ized section and content) DATE CREATED AUTHOR 05/18/2021 [facility] DATE CREATED AUTHOR AUTHOR'S ORGANIZ ATION 03/07/2022 [facility] DATE CREATED AUTHOR AUTHOR'S ORGANIZ ATION 08/23/2022 [facility] DATE CREATED AUTHOR AUTHOR'S ORGANIZ ATION 04/26/2023 [facility] EPIC FOR RECORDS PERTAINING TO PATIENTS WHO ARE OR HAVE BEEN ENROLLED IN A CHEMICAL DEPENDENCY/SUBSTANCEABUSE PROGRAM, SOME INFORMATION MAY BE OMITTED. This clinical summary was aggregated from multiple sources. Caution should be exercised in using it in the provision of clinical care. This summary normalizes information from multiple sources, and as a consequence, information in this document may materially change the coding, format and clinical context of patient data. In addition, data may be omitted in some cases. CLINICAL DECISIONS SHOULD BE BASED ON THE PRIMARY CLINICAL RECORDS. [facility]. provides no warranty or guarantee of the accuracy or completeness of information in this document.
[2023-05-22] MEDS: REGADENOSON 0.4 MG/5 ML SYRINGE IV (09:32)
== END 2023-05-22 08:00 | disposition home or self-care (01) ==
LOC: NM 07:59
PROVIDERS: PCP Family Medicine; Visit Provider Family Medicine
DX: E11.649 Type 2 diabetes mellitus with hypoglycemia without coma (principal); R07.9 Chest pain, unspecified; I25.9 Chronic ischemic heart disease, unspecified
CPT/HCPCS: 78452; 93017; A9500; J2785

== ENCOUNTER 2023-07-20 10:38 | Outpatient (OUT) | payer OTHER, SELFPAY ==
--- NOTE | 2023-07-20 10:43 | XR_ITS ---
[address] [address] Patient Name: JOHANNA ESPINOSA MRN: [id number] date: 1940 Sex: F Assigned Patient Location: [facility] Current Patient Location: [facility] Accession/Order Number: [id number] Exam Date: 07/20/2023 11:05 Report Date: 07/20/2023 11:42 At the request of: BAUTISTA THAYER Procedure: XR DEXA axial skeleton EXAMINATION: XR DEXA axial skeleton, 07/20/2023 11:05 AM EDT HISTORY: Estrogen Deficiency E28.39 COMPARISON: None. TECHNIQUE: Dual-energy X-ray absorptiometry (DEXA) bone density study performed for the axial skeleton. HISTORY: Estrogen Deficiency E28.39 FINDINGS: Bone mineral density AP spine L1-L4 measures 1.437 g/sq cm. T score 2.1. WHO classification: Normal. Lowest bone density is in the left femoral neck measuring 0.851 g/sq cm. T score -1.3. WHO classification: Osteopenia XR/XR DEXA axial skeleton IMPRESSION: Osteopenia. Moderate fracture risk Electronically authenticated by: ALISA DONG Date: 07/20/2023 11:42
== END 2023-07-20 10:39 | disposition home or self-care (01) ==
LOC: RAD 10:38
PROVIDERS: PCP Family Medicine; Visit Provider Family Medicine
DX: E28.39 Other primary ovarian failure (principal); M85.80 Other specified disorders of bone density and structure, unspecified site
CPT/HCPCS: 77080

== ENCOUNTER 2023-11-23 08:51 | Outpatient (OUT) | payer OTHER, SELFPAY ==
--- NOTE | 2023-11-23 09:00 | CA_ITS ---
Patient Name: JOHANNA ESPINOSA MR#: [id number] : 1940 Exam Date: 11/23/2023 Ordering Doctor: DR BAUTISTA THAYER M.D. ECHOCARDIOGRAM REPORT PROCEDURE: CA ECHO DOPPLER COMPLETE INDICATIONS: Murmur, hypertension, diabetes, h/o colon cancer, h/o lung cancer (left lower lobe removed) COMPARISON: None. DESCRIPTION: COMPLETE ECHOCARDIOGRAM Real-time transthoracic echocardiography with 2D, M-mode, spectral and color flow Doppler performed. QUALITY: Technical quality was good. LEFT VENTRICLE: Normal chamber size. Mild concentric left ventricular hypertrophy. LV EF: Global left ventricular systolic function is hyperdynamic; visually estimated ejection fraction is 65 to 70%. No wall motion abnormalities. DIASTOLIC: Grade II diastolic dysfunction. ATRIAL SEPTUM: Visually appears intact. LEFT ATRIUM: Moderate dilatation. RIGHT ATRIUM: Mild dilatation. RIGHT VENTRICLE: Normal chamber size. Normal right ventricular systolic function. TRICUSPID VALVE: Normal mobility and thickness. No stenosis with mild regurgitation. No evidence of pulmonary hypertension. RVSP 29 mmHg MITRAL VALVE: Normal mobility and thickness. No evidence of mitral valve stenosis. Moderate mitral annular calcification. Mild mitral regurgitation. AORTIC VALVE: Normal trileaflet appearance. Mildly calcified aortic valve. Normal leaflet mobility. No evidence of aortic valve stenosis. No aortic regurgitation. AORTIC ROOT: Normal diameter and appearance. PULMONIC VALVE: Normal thickness and mobility. No stenosis. Trivial regurgitation. PERICARDIUM: Anterior free space; trivial effusion versus fat pad. IVC: Collapses with inspirations. CONCLUSION: 1. Global left ventricular systolic function is hyperdynamic; visually estimated ejection fraction is 65 to 70% 2. Mild left ventricular hypertrophy 3. Normal right ventricular size and systolic function 4. Biatrial enlargement 5. Grade 2 diastolic dysfunction 6. Mild tricuspid regurgitation 7. Mild mitral regurgitation 8. Anterior free space; trivial effusion versus fat pad Adult Echocardiography Procedure Report Left Ventricle LVEDD (3.7 - 5.6 cm): 4.63 cm LVESD (2.2 - 4.0 cm): 2.57 cm LVIVS thickness (0.6 - 1.2 cm): 1.26 cm LVPW thickness (0.5 - 1.0 cm): 1.08 cm e': 0.07 m/s E - e': 14.72 LVOT Max Gradient: 3.13 mm[Hg] LVOT Area (cm2): 0.88 m/s Peak Velocity (LVOT): 0.88 m/s Mean Velocity (LVOT): 0.57 m/s LVOT Diameter 1.88 cm Left Atrium LA Volume Index (2D A2C): 43.00 ml/m2 Left Atrium Systolic Dimension: 4.40 cm Mitral Valve MV E to A Ratio: 0.73 Mitral Valve A-Wave Peak Velocity: 1.35 m/s Mitral Valve E-Wave Peak Velocity: 0.99 m/s Right Ventricle Aorta AO Root Diam: 3.55 cm Ascending Ao Diam: 2.69 cm Aortic Valve AoV Area (Peak Ha): 1.87 cm2, 1.87 cm2 AoV Area (VTI): 1.86 cm2, 1.86 cm2 Peak Velocity(Antegrade Flow): 1.31 m/s Peak Gradient(Antegrade Flow): 6.86 mm[Hg] Mean Velocity(Antegrade Flow): 0.87 m/s Mean Gradient(Antegrade Flow): 3.44 mm[Hg] Velocity Time Integral: 33.73 cm Tricuspid Valve Peak Velocity (Regurgitant Flow): 2.53 m/s Pulmonic Valve Mean Gradient: 1.64 mm[Hg] Mean Velocity: 0.58 m/s Peak Velocity: 0.90 m/s, 0.94 m/s Peak Gradient: 3.54 mm[Hg], 3.21 mm[Hg] Right Atrium Right Atrium Systolic Pressure: 47.08 ml, 47.08 ml Dictated by: Alex Galan M.D. on 11/24/2023 at 09:28 Approved by: Alex Galan M.D. on 11/24/2023 at 09:35
--- OUTSIDE RECORDS SUMMARY | 2023-11-23 09:01 | XMS_ITS | CCD ---
Author Organization [facility] Care Team Providers Care Signalman Name Role Phone JEOVANY, DR BAUM Attending Unavailable JEOVANY, DR BAUM Consulting Unavailable JEOVANY, DR BAUM Primary Care Unavailable JEOVANY, DR BAUM Admitting Unavailable WEST, DR ALISA Shaffer Consulting Unavailable Rio Thayer MD Unavailable Rio Thayer MD Primary Care Provider RIO THAYER Attending Unavailable DELORES WINKLER Attending Unavailable DELORES WINKLER Referring Unavailable CANDELARIO CROWE Attending Unavailable RIO THAYER Attending Unavailable RIO THAYER Attending Unavailable HEMDELORES LEE Attending Unavailable RIO THAYER Attending Unavailable NOELLE EM Attending Unavailable DELORES WINKLER Referring Unavailable NOELLE EM Referring Unavailable RIO THAYER Attending Unavailable NOELLE EM Attending Unavailable DELORES WINKLER Attending Unavailable RIO THAYER Referring Unavailable DELORES WINKLER Attending Unavailable RIO THAYER Attending Unavailable Allergies Allergy Classification Reported Allergen(s) Allergy Type Date of Onset Reaction(s) Facility (4 sources) Aluminum aspirin Drug Allergy 3 [facility] Healthcare (4 sources) gabapentin Drug Allergy 7 Hallucinations [facility] Healthcare Medications Current Medications Medication Drug Class(es) Dates Sig (Normalized) Sig (Original) acetaminophen 500 mg oral tablet (4 sources) take 1 tablet by mouth every six hours as needed acetaminophen (Tylenol) 500 MG tablet Take 500 mg by mouth every 6 (six) hours if needed. 0 Active [id number] 200 actuat albuterol 0.09 mg/actuat metered dose inhaler (8 sources) beta2-Adrenergic Agonist Start: 03-27-2023 End: 03-26-2024 albuterol (2.5 MG/3ML) 0.083% nebulizer solution Indications: Asthma, unspecified asthma severity, unspecified whether complicated, unspecified whether persistent (CMS/HCC) Take 3 mL (2.5 mg) by nebulization every 6 (six) hours if needed for wheezing 75 mL 11 03/27/2023 03/26/2024 Active Start: 03-27-2023 take 2 puff(s) by in halation every six hours albuterol HFA 90 mcg/act inhaler Indications: Asthma, unspecified asthma severity, unspecified whether complicated, unspecified whether persistent (CMS/HCC) Inhale 2 puffs every 6 (six) hours if needed for shortness of breath 18 g 3 03/27/2023 Active baclofen 10 mg oral tablet (4 sources) gamma-Aminobutyric Acid-ergic Agonist Start: 03-27-2023 take 1 tablet by mouth three times daily at mealtime baclofen (Lioresal) 10 MG tablet Indications: Restless legs TAKE 1 TABLET BY MOUTH WITH FOOD or milk THREE TIMES DAILY 270 tablet 1 03/27/2023 Active benzonatate 200 mg oral capsule (4 sources) Non-narcotic Antitussive Start: 04-11-2023 take 1 capsule by mouth three times daily as needed for cough benzonatate (Tessalon) 200 MG capsule Indications: Bronchitis with bronchospasm Take 1 capsule (200 mg) by mouth 3 (three) times a day as needed for cough Do not crush or chew. 21 capsule 1 04/11/2023 Active Continuous Blood Gluc Office Director (FreeStyle Ivy 2 [place]) device (4 sources) Start: 08-22-2022 Continuous Blood Gluc Office Director (FreeStyle Ivy 2 [place]) device USE DIRECTED DAILY FOR 365 DAYS 0 08/22/2022 Active Continuous Blood Gluc Sensor (FreeStyle Ivy 2 Sensor) misc (4 sources) Start: 08-22-2022 Continuous Blood Gluc Sensor (FreeStyle Ivy 2 Sensor) misc USE 1 SENSOR EVERY 14 DAYS 0 08/22/2022 Active ergocalciferol 1.25 mg oral capsule (4 sources) Provitamin D2 Compound Start: 12-27-2022 take 1 capsule by mouth every week ergocalciferol (Vitamin D2) 1.25 MG (10047 UT) capsule Indications: Vitamin D deficiency Take 1 capsule (1.25 mg) by mouth 1 (one) time per week. 5 capsule 3 12/27/2022 Active furosemide 20 mg oral tablet (4 sources) Loop Diuretic Start: 12-27-2022 take 1 tablet by mouth in the morning furosemide (Lasix) 20 MG tablet Indications: Edema, unspecified type Take 1 tablet (20 mg) by mouth in the morning. 100 tablet 3 12/27/2022 Active gabapentin 100 mg oral capsule (4 sources) Anti-epileptic Agent Start: 11-11-2021 End: 06-08-2023 take 1 capsule by mouth in the morning, then take 1 capsule by mouth in the evening, then take 1 capsule by mouth at bedtime gabapentin (Neurontin) 100 MG capsule Take 100 mg by mouth in the morning and 100 mg in the evening and 100 mg before bedtime. 0 11/11/2021 06/08/2023 Discontinued (Side effects) hydrocortisone 10 mg/ml / neomycin 3.5 mg/ml / polymyxin b [id number] unt/ml otic suspension (2 sources) Aminoglycoside Antibacterial, Polymyxin-class Antibacterial, Corticosteroid Start: 06-08-2023 End: 06-15-2023 neomycin-polymyxin- hydrocortisone (Cortisporin) 3.5-78346-9 otic suspension Indications: Acute diffuse otitis externa of both ears Administer 3 drops into each ear in the morning and 3 drops at noon and 3 drops in the evening and 3 drops before bedtime. Do all this for 7 days. 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 Inject with meals. 0 04/25/2023 04/19/2024 Active 3 ml insulin degludec 200 unt/ml pen injector (4 sources) Insulin Analog Start: 05-03-2023 inject 76 [IU] by subcutaneous injection at bedtime Tresiba FlexTouch 200 UNIT/ML injection Indications: Uncontrolled type 2 diabetes mellitus with hypoglycemia, unspecified hypoglycemia coma status (HCC) (CMS/HCC) INJECT 76 UNITS SUBCUTANEOUSLY AT BEDTIME 9 mL 12 05/03/2023 Active levothyroxine sodium 0.05 mg oral tablet (4 sources) l-Thyroxine Start: 08-22-2022 take 1 tablet by mouth in the morning levothyroxine (Synthroid, Levoxyl) 50 MCG tablet TAKE 1 TABLET BY MOUTH IN THE MORNING ON AN EMPTY STOMACH 0 08/22/2022 Active losartan potassium 25 mg oral tablet (4 sources) Angiotensin 2 Receptor Abhijit Start: 11-01-2022 End: 11-01-2023 take 1 tablet by mouth in the morning losartan (Cozaar) 25 MG tablet Indications: Essential hypertension ([facility]/HCC) Take 1 tablet (25 mg) by mouth in the morning. 90 tablet 3 11/01/2022 11/01/2023 Active ofloxacin 3 mg/ml ophthalmic solution (4 sources) Quinolone Antimicrobial End: 06-08-2023 ofloxacin (Ocuflox) 0.3 % ophthalmic solution every 6 (six) hours. 0 06/08/2023 Discontinued (Other) ondansetron 4 mg oral tablet (4 sources) Serotonin-3 Receptor Antagonist Start: 08-25-2022 take 1 tablet by mouth in the morning, then take 1 tablet by mouth in the evening, then take 1 tablet by mouth at bedtime ondansetron (Zofran) 4 MG tablet Take 4 mg by mouth in the morning and 4 mg in the evening and 4 mg before bedtime. 0 08/25/2022 Active traMADol hydrochloride 50 mg oral tablet (4 sources) Opioid Agonist Start: 12-27-2022 take 1 tablet by mouth every four hours for pain traMADol (Ultram) 50 MG tablet Indications: Degeneration of lumbar intervertebral disc Take 1 tablet (50 mg) by mouth every 4 (four) hours if needed for severe pain. 180 tablet 0 12/27/2022 Active Problems Active Problems Problem Classification Problem Date Documented Date Episodic/Chronic Asthma (4 sources) Asthma; Translations: [Unspecified asthma, uncomplicated] Onset: 03-27-2023 03-27-2023 Chronic Cancer of colon (4 sources) Malignant tumor of sigmoid colon; Translations: [Malignant neoplasm of sigmoid colon] Onset: 10-18-2022 10-18-2022 Chronic Cataract (4 sources) Bilateral cataracts; Translations: [Unspecified cataract] Onset: 10-18-2022 10-18-2022 Chronic Chronic kidney disease (4 sources) Chronic kidney disease stage 3; Translations: [Stage 3 chronic kidney disease (HCC)] Onset: 10-18-2022 10-18-2022 Chronic Coronary atherosclerosis and other heart disease (4 sources) Ischemic chest pain; Translations: [Chronic ischemic heart disease, unspecified] Onset: 04-25-2023 04-25-2023 Chronic Diabetes mellitus with complications (20 sources) Type 2 diabetes mellitus with diabetic chronic kidney disease; Translations: [Neuropathy due to diabetes mellitus] Onset: 03-07-2022 10-18-2022 Chronic Diabetes mellitus without complication (4 sources) Brittle diabetes mellitus; Translations: [Type 1 diabetes mellitus without complications] Onset: 04-25-2023 04-25-2023 Chronic Disorders of lipid metabolism (4 sources) Mixed hyperlipidemia; Translations: [Mixed hyperlipidemia] Onset: 10-18-2022 10-18-2022 Chronic Esophageal disorders (4 sources) Gastroesophageal reflux disease; Translations: [Gastro-esophageal reflux disease without esophagitis] Onset: 10-18-2022 10-18-2022 Chronic Essential hypertension (8 sources) Essential (primary) hypertension; Translations: [Essential hypertension] Onset: 03-02-2022 Chronic Hypertension with complications and secondary hypertension (4 sources) 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; Translations: [Hypertensive heart and chronic kidney disease without heart failure, with stage 1 through stage 4 chronic kidney disease, or unspecified chronic kidney disease] Onset: 10-18-2022 10-18-2022 Chronic Nonspecific chest pain (1 source) Chest pain, unspecified; Translations: [CHEST PAIN UNSPECIFIED] Onset: 03-07-2022 Episodic Nutritional deficiencies (4 sources) Vitamin D deficiency; Translations: [Vitamin D deficiency, unspecified] Onset: 10-18-2022 10-18-2022 Chronic Osteoarthritis (4 sources) Osteoarthritis of hip; Translations: [Osteoarthritis of hip, unspecified] Onset: 10-18-2022 10-18-2022 Chronic Other connective tissue disease (2 sources) Pain in left foot; Translations: [Pain in left foot] 06-08-2023 Episodic Other ear and sense organ disorders (2 sources) Acute otitis externa; Translations: [Diffuse otitis externa, bilateral] 06-08-2023 Episodic Other endocrine disorders (4 sources) Hypoglycemia; Translations: [Hypoglycemia, unspecified] Onset: 10-18-2022 10-18-2022 Chronic Other endocrine disorders (4 sources) Diabetes insipidus; Translations: [Diabetes insipidus] Onset: 12-27-2022 12-27-2022 Chronic Other hereditary and degenerative nervous system conditions (4 sources) Restless legs; Translations: [Restless legs syndrome] Onset: 10-18-2022 10-18-2022 Chronic Other lower respiratory disease (1 source) Shortness of breath; Translations: [SHORTNESS OF BREATH] Onset: 03-07-2022 Episodic Other non-traumatic joint disorders (2 sources) Acute ankle pain; Translations: [Pain in left ankle and joints of left foot] 06-08-2023 Episodic Other nutritional; endocrine; and metabolic disorders (4 sources) Morbid obesity; Translations: [Morbid (severe) obesity due to excess calories] Onset: 12-27-2022 12-27-2022 Chronic Other nutritional; endocrine; and metabolic disorders (4 sources) Body mass index 40+ - severely obese; Translations: [Body mass index (BMI) 40.0-44.9, adult] Onset: 06-23-2020 01-23-2023 Chronic Spondylosis; intervertebral disc disorders; other back problems (16 sources) Degeneration of lumbar intervertebral disc; Translations: [Other intervertebral disc degeneration, lumbar region] Onset: 08-01-2016 10-18-2022 Chronic Thyroid disorders (4 sources) Hypothyroidism; Translations: [Hypothyroidism, unspecified] Onset: 10-18-2022 10-18-2022 Chronic Past or Other Problems Problem Classification Problem Date Documented Da te Episodic/Chronic Abdominal hernia (4 sources) Hiatal hernia; Translations: [Diaphragmatic hernia without obstruction or gangrene] Onset: 05-21-2020 01-23-2023 Episodic Calculus of urinary tract (4 sources) Urolithiasis ; Translations: [Urinary calculus, unspecified] Onset: 10-18-2022 10-18-2022 Episodic Cancer of colon (4 sources) History of malignant neoplasm of colon; Translations: [Personal history of other malignant neoplasm of large intestine] Onset: 06-23-2020 01-23-2023 Episodic Other and unspecified benign neoplasm (4 sources) Tubular adenoma ; Translations: [Benign neoplasm, unspecified site] Onset: 10-18-2022 10-18-2022 Episodic Other bone disease and musculoskeletal deformities (4 sources) Osteopenia; Translations: [Other specified disorders of bone density and structure, unspecified site] Onset: 10-18-2022 10-18-2022 Episodic Other gastrointestinal disorders (4 sources) Dysphagia; Translations: [Dysphagia, unspecified] Onset: 10-18-2022 10-18-2022 Episodic Other gastrointestinal disorders (4 sources) Flatulence, eructation and gas pain; Translations: [Flatulence] Onset: 02-21-2023 02-21-2023 Episodic Other lower respiratory disease (4 sources) Cough; Translations: [Acute cough] Onset: 03-27-2023 Resolved: 06-08-2023 03-27-2023 Episodic Other skin disorders (4 sources) Actinic keratosis; Translations: [Actinic keratosis] Onset: 10-18-2022 10-18-2022 Episodic Other upper respiratory infections (4 sources) Upper respiratory infection; Translations: [Acute upper respiratory infection, unspecified] Onset: 03-27-2023 Resolved: 04-11-2023 04-11-2023 Episodic Residual codes; unclassified (4 sources) Edema; Translations: [Edema, unspecified] Onset: 12-27-2022 12-27-2022 Episodic Spondylosis; intervertebral disc disorders; other back problems (8 sources) Lumbar radiculopathy; Translations: [Radiculopathy, lumbar region] Onset: 08-01-2016 01-23-2023 Episodic Results Test Name Value Interpretation Reference Range Facil ity XR ANKLE 3+ VIEWS LEFTon XR ANKLE 3+ VIEWS LEFT EXAM: XR ANKLE 3+ VIEWS LEFT COMPARISON:None available HISTORY: Ankle pain FINDINGS: 3 views of the ankle were obtained. FINDINGS: No acute fracture or dislocation. Tiny chronic ossicles along the tip of the medial and lateral malleoli. Ankle mortise is within normal limits. Talar dome is intact. Small plantar and tiny posterior calcaneal visa fights. Mild degenerative changes of the midfoot and hindfoot. Soft tissues are within normal limits. IMPRESSION: No acute osseous abnormality. ELECTRONICALLY SIGNED BY: Jason Alaniz DO Normal Not Available XR FOOT 3+ VIEWS LEFTon 05-25 XR FOOT 3+ VIEWS LEFT EXAM: XR FOOT 3+ VIEWS LEFT COMPARISON: None available HISTORY: Foot pain TECHNIQUE: 3 views of the foot obtained. FINDINGS: A tiny curvilinear lucency of the distal diaphysis of the fourth metatarsal without definitive involvement of the cortex is most likely a nutrient channel unless the patient has point tenderness in this location in which case nondisplaced fracture should be considered. Otherwise no fractures identified. Mild degenerative changes of the midfoot and forefoot. Os naviculare. Tiny posterior and small plantar calcaneal enthesophytes. Soft tissues appear within normal limits. IMPRESSION: Tiny lucency of the distal fourth metatarsal is most likely a nutrient channel if the patient has point tenderness in this location in which case nondisplaced fracture should be considered. ELECTRONICALLY SIGNED BY: Jason Alaniz DO Normal Not Available XR CHEST 2 VIEWSon 3 XR CHEST [...] seen. Report reported and signed by Hilton Talbot on 08/22/2022 1642 Normal [facility] Specialist NM STRESS/REST MULTIon 03-02 NM STRESS/REST MULTI Patient: WILLIE ESPINOSA. Exam Date: 03/02/2022 : 1940 Gender:F Ordering : DR RIO THAYER M.D. Admission #: [id number] Family : Order #: [id number] CLICK HERE TO VIEW EXAM RADIOLOGY REPORT [...] Trujillo MD on 03/02/2022 at 13:16 Normal [facility] XR elbow RT min 3V*on 2020 XR elbow RT min 3V* [facility] [place] [address] XRay Report Signed Patient: Willie Espinosa MR#: [id number] 6 : 1940 Acct:[id number] Age/Sex: 80 / F ADM Date: 01/10/21 Loc: XDUCLY Room: Type: [facility] Attending Dr: Delaney ALONZO Ordering Provider: CHERI Woodson Date of Service: 01/10/21 XR/XR elbow RT min 3V*: Elbow pain, right ([id number]) XR/XR shoulder RT min 2V*: Acute pain [...] Chavez Rivera M.D.01/10/2021 12:38 PM Dictation Location: [place] [address] Transcribed By: [facility] 01/10/21 1238 Dictated By: Chavez Rivera II, MD 01/10/21 1234 Signed By: 01/10/21 1238 [facility] Vital Signs Date Time Vital Sign Value Performing Clinician Faci lity 06-08-2023 11:20-0500 Body mass index (BMI) [Ratio] 36.07 kg/m2 Delores ALMANZA Work Phone: [facility] 06-08-2023 11:20-0500 Body weight 78.29 kg Delores ALMANZA Work Phone: [facility] 06-08-2023 11:20-0500 Diastolic blood pressure 72 mm[Hg] Delores ALMANZA Work Phone: [facility] 06-08-2023 11:20-0500 Heart rate 64 /min Delores Hemmer PA Work Phone: [facility] 06-08-2023 11:20-0500 Respiratory rate 18 /min Delores Hemmer PA Work Phone: [facility] 06-08-2023 11:20-0500 SaO2% (BldA) [Mass fraction] 97 % Delores Hemmer PA Work Phone: [facility] 06-08-2023 11:20-0500 Systolic blood pressure 132 mm[Hg] Delores Hemmer PA Work Phone: [facility] Healthcare Encounters Encounter Date Encounter Type Care Provider Facility Start: 11-07-2023 End: 11-07-2023 ambulatory RUGEN M JEOVANY Not Available Start: 10-04-2023 End: 10-04-2023 ambulatory DELORES M HEMMER Not Available Start: 08-10-2023 End: 08-10-2023 ambulatory NOELLE A BROWN Not Available Start: 08-08-2023 End: 08-08-2023 ambulatory RUGEN M JEOVANY Not Available Start: 07-27-2023 End: 07-28-2023 ambulatory NOELLE A BROWN Not Available Start: 07-27-2023 End: 07-27-2023 ambulatory NOELLE A BROWN Not Available Start: 07-24-2023 End: 07-24-2023 ambulatory RUGEN M JEOVANY Not Available Start: 07-03-2023 End: 07-03-2023 ambulatory DELORES M HEMMER Not Available Start: 06-26-2023 End: 06-26-2023 ambulatory RUGEN M JEOVANY Not Available Start: 06-15-2023 End: 06-15-2023 ambulatory CANDELARIO Aguilar CROWE Not Available Start: 06-08-2023 End: 06-08-2023 ambulatory DELORES M HEMMER Not Available Start: 06-08-2023 Bamboo flowsheet Delores M Hemme r PA Work Phone: [facility] Start: 06-08-2023 Bamboo flowsheet Delores M Hemme r PA Work Phone: [facility] Start: 06-08-2023 End: 06-08-2023 ambulatory DELORES Anamaria PETERSON Not Available Start: 06-08-2023 End: 06-08-2023 Office outpatient visit 25 minutes Delores Winkler PA Work Phone: [facility] Comment on above: Type 2 diabetes mary itus with retinopathy without macular edema, with long-term current use of insulin, unspecified laterality, unspecified retinopathy severity (CMS/HCC) (Primary Dx); Diabetic autonomic neuropathy associated with type 2 diabetes mellitus (CMS/HCC); Left foot pain; Acute left ankle pain; Acute diffuse otitis externa of both ears Start: 06-07-2023 Chart abstracting Delores castelan PA Work Phone: [facility] Start: 04-25-2023 End: 04-25-2023 ambulatory RIO THAYER Not Available Start: 04-11-2023 End: 04-11-2023 ambulatory DELORES WINKLER Not Available Start: 03-27-2023 End: 03-27-2023 ambulatory RIO Anamaria JEOVANY Not Available Start: 03-27-2023 End: 03-27-2023 ambulatory RIO Conrad JEOVANY Not Available Start: 03-02-2022 End: 03-03-[address] RIO THAYER Facility: Plan of Treatment Date Care Activity Detail Author Start: 08-09-2023 Medicare Annual Wellness (AWV) Medicare Annual Wellness (AWV) [facility] Start: 07-25-2023 Hemoglobin A1c measurement Diabetes: Hemoglobin A1C [facility] Start: 06-26-2023 End: 06-26-2023 Patient encounter procedure 06/26/2023 11:00 AM EST Office Visit [facility] [address] [facility] [address] [place] [address] Rio Thayer MD [address] [facility] [address] [place] [address] [facility] Start: 06-08-2023 End: 06-08-2024 XR Ankle - left 3 Views XR ankle 3+ views left Imaging Routine Acute left ankle pain Expected: 06/08/2023, Expires: 06/08/2024 [facility] Comment on above: Expected: 06/08/2023 , Expires: 06/08/2024 Start: 06-08-2023 End: 06-08-2024 XR Foot - left 3 Views XR foot 3+ views left Imaging Routine Left foot pain Expected: 06/08/2023, Expires: 06/08/2024 [facility] Work Phone: Comment on above: Expected: 06/08/2023 , Expires: 06/08/2024 Start: 06-08-2023 End: 06-08-2023 Patient encounter procedure 06/08/2023 11:00 AM EST Office Visit [facility] [address] [place] [id number] Delores Winkler PA [address] [place] [address] [facility] Start: 11-12-2022 Glaucoma screening Diabetes: R etinopathy Screening [facility] Immunizations Immunization Date Immunization Notes Care Provider Fa cili 01-24-2023 Influenza, High-dose Seasonal, Quadrivalent, Preservative Free Delores Hemmer PA Work Phone: [facility] 02-14-2022 Influenza, High-dose Seasonal, Quadrivalent, Preservative Free Delores Hemmer PA Work Phone: [facility] 02-12-2021 influenza, high dose seasonal, preservative-free Delores Hemmer PA Work Phone: [facility] 02-24-2020 influenza, high dose seasonal, preservative-free Delores Hemmer PA Work Phone: [facility] 02-24-2020 Influenza, High-dose Seasonal, Quadrivalent, Preservative Free Delores Hemmer PA Work Phone: [facility] 02-21-2018 influenza, injectabl e, quadrivalent, contains preservative Delores Hemmer PA Work Phone: [facility] 03-30-2017 Influenza, injectabl e, [place] Canine Kidney, preservative free, quadrivalent Delores Hemmer PA Work Phone: [facility] 03-05-2015 pneumococcal conjuga te vaccine, 13 valent Delores ALMANZA Work Phone: [facility] 01-30-2014 diphtheria, tetanus toxoids and acellular pertussis vaccine Delores ALMANZA Work Phone: [facility] 01-30-2014 influenza, seasonal, injectable Delores ALMANZA Work Phone: [facility] 03-08-2011 pneumococcal polysaccharide vaccine, 23 valent Delores ALMANZA Work Phone: [facility] Healthcare Payers Date Payer Category Payer Unknown [employer] [id number] 2022-Present [address] [place] [address] [id number] 2020 Unknown [id number] 1940 Unknown [id number] 1940 Unknown [id number] 2.16.840.1.648697.3.579.2.125 9 1940 Unknown [id number] 2.16.840.1.556041.3.579.2.125 9 1940 Unknown [id number] 2.16.840.1.395150.3.579.2.125 9 1940 Unknown [id number] 2.16.840.1.343556.3.579.2.125 9 1940 Unknown [id number] 2.16.840.1.868763.3.579.2.125 9 1940 Unknown [id number] 2.16.840.1.671346.3.579.2.125 9 1940 Unknown [id number] 2.16.840.1.712982.3.579.2.125 9 1940 Unknown [id number] 2.16.840.1.751214.3.579.2.125 9 1940 Unknown [id number] 2.16.840.1.248795.3.579.2.125 9 1940 Unknown [id number] 2.16.840.1.927061.3.579.2.125 9 1940 Unknown [id number] 2.16.840.1.305422.3.579.2.125 9 1940 Unknown [id number] 2.16.840.1.679028.3.579.2.125 9 1940 Unknown [id number] 2.16.840.1.536750.3.579.2.125 9 1940 Unknown [id number] 2.16.840.1.156217.3.579.2.125 9 1940 Unknown [id number] 2.16.840.1.148336.3.579.2.125 9 1940 Unknown [id number] 2.16.840.1.147884.3.579.2.125 9 1940 Unknown [id number] 2.16.840.1.580469.3.579.2.125 9 Social History Date Type Detail Facility Start: 11-01-2022 Tobacco smoking stat [facility] Never smoked tobacco [facility] Work Phone: Start: 11-01-2022 Tobacco use and exposure Smoke less tobacco non-user [facility] Start: 04-25-2023 End: 06-08-2023 Alcohol intake Lifetime non-drinker (finding) [facility] Start: 11-01-2022 End: 06-08-2023 History of Social function [facility] Start: 11-01-2022 End: 06-08-2023 Humiliation, Afraid, Rape, and Kick questionnaire [HARK] [facility] Within the last year , have you been afraid of your partner or ex-partner? No [facility] Do you belong to any clubs or organizations such as oriental orthodox groups, unions, fraternal or athletic groups, or school groups? Yes [facility] Are you now , , , , never or living with a partner? [facility] How often to you hav e a drink containing alcohol? Never [facility] How many standard dr inks containing alcohol do you have on a typical day? Patient does not drink [facility] Do you feel stress - tense, restless, nervous, or anxious, or unable to sleep at night because your mind is troubled all the time - these days [OSQ] Only a little [facility] (I/We) worried wheth er (my/our) food would run out before (I/we) got money to buy more. Never true [facility] Start: 1940 Sex Assigned At Not on file [facility] Medical Equipment Procedure Code Equipment Code Equipment Origin al Text Equipment Identifier Dates USE DIRECTED DAILY [id number] Start: 11-01-2022 End: 06-08-2023 use to test BLOO D SUGAR THREE TIMES DAILY [id number] Start: 12-16-2022 Inject 1 each un ninoska the skin in the morning and 1 each in the evening and 1 each before bedtime. USE DIRECTED DAILY. [id number] Start: 06-08-2023 History of Present illness Narrative 06-08-2023 CAMI Lam - 06/08/2023 11:00 AM EST Note Date & Type Note Facility 06-08-2023 History of Presen t illness Narrative HPI Edema Additional comments: Top of left foot and into her left ankle. She thinks she could have possible twisted it but does not remember hurting it. Started Monday. Med Refill Additional comments: Pen needles Last edited by CAMI Lam on 06/08/2023 11:29 AM. Subjective Patient ID: Willie Espinosa is a 83 y.o. female who presents for ear ache. Willie is present today for evaluation of bilateral ear pain. They have been bothering her for a couple of weeks. Denies drainage but they are painful, itchy and sore. She did put sweet oil/olive oil in her ears but did not help. Current Outpatient Medications on File Prior to Visit Medication Sig Dispense Refill acetaminophen (Tylenol) 500 MG tablet Take 500 mg by mouth every 6 (six) hours if needed. albuterol (2.5 MG/3ML) 0.083% nebulizer solution Take 3 mL (2.5 mg) by nebulization every 6 (six) hours if needed for wheezing 75 mL 11 albuterol HFA 90 mcg/act inhaler Inhale 2 puffs every 6 (six) hours if needed for shortness of breath 18 g 3 baclofen (Lioresal) 10 MG tablet TAKE 1 TABLET BY MOUTH WITH FOOD or milk THREE TIMES DAILY 270 tablet 1 BD Pen Needle Shakira U/F 32G X 4 MM misc USE DIRECTED DAILY 100 each 3 benzonatate (Tessalon) 200 MG capsule Take 1 capsule (200 mg) by mouth 3 (three) times a day as needed for cough Do not crush or chew. 21 capsule 1 Continuous Blood Gluc Office Director (FreeStyle Ivy 2 [place]) device USE DIRECTED DAILY FOR 365 DAYS Continuous Blood Gluc Sensor (FreeStyle Ivy 2 Sensor) misc USE 1 SENSOR EVERY 14 DAYS ergocalciferol (Vitamin D2) 1.25 MG (02273 UT) capsule Take 1 capsule (1.25 mg) by mouth 1 (one) time per week. 5 capsule 3 furosemide (Lasix) 20 MG tablet Take 1 tablet (20 mg) by mouth in the morning. 100 tablet 3 gabapentin (Neurontin) 100 MG capsule Take 100 mg by mouth in the morning and 100 mg in the evening and 100 mg before bedtime. insulin aspart (NovoLOG FLEXPEN) 100 UNIT/ML pen Inject 8 Units under the skin in the morning and 8 Units in the evening. Inject with meals. levothyroxine (Synthroid, Levoxyl) 50 MCG tablet TAKE 1 TABLET BY MOUTH IN THE MORNING ON AN EMPTY STOMACH losartan (Cozaar) 25 MG tablet Take 1 tablet (25 mg) by mouth in the morning. 90 tablet 3 ondansetron (Zofran) 4 MG tablet Take 4 mg by mouth in the morning and 4 mg in the evening and 4 mg before bedtime. OneTouch Verio test strip use to test BLOOD SUGAR THREE TIMES DAILY 100 each 11 traMADol (Ultram) 50 MG tablet Take 1 tablet (50 mg) by mouth every 4 (four) hours if needed for severe pain. 180 tablet 0 Tresiba FlexTouch 200 UNIT/ML injection INJECT 76 UNITS SUBCUTANEOUSLY AT BEDTIME 9 mL 12 [DISCONTINUED] ofloxacin (Ocuflox) 0.3 % ophthalmic solution every 6 (six) hours. No current facility-administered medications on file prior to visit. Allergies Allergen Reactions Aspirin Other Reaction(s): makes her stomach burn Gabapentin Hallucinations Social History Tobacco Use Smoking status: Never Smokeless tobacco: Never Substance Use Topics Alcohol use: Never Drug use: Never Family History Problem Relation Name Age of Onset Cancer Mother Heart disease Mother Diabetes Father Past Medical History: Diagnosis Date Arthritis Colon cancer (CMS/HCC) CT scan of Abdomen An Approximately 1 cm calculus within the posterior aspect of the left kidney 10/07/2020 Diabetes (CMS/HCC) Hyperlipidemia (CMS/HCC) Lung cancer (CMS/HCC) Stress test: No reversible ischemia, Normal exercise test 03/02/2022 Past Surgical History: Procedure Laterality Date APPENDECTOMY CHOLECYSTECTOMY COLECTOMY colon resection HYSTERECTOMY LITHOTRIPSY LUNG REMOVAL, PARTIAL Left Left lung frontal lobe removed [place] ARTHROCENTESIS ASPIR&/INJ MAJOR JT/BURSA W/O US Right Arthrocentesis of the right knee joint TONSILLECTOMY Visit Vitals BP 132/72 Pulse 64 Resp 18 Wt 172 lb 9.6 oz SpO2 97% BMI 36.07 kg/m Smoking Status Never BSA 1.79 m Review of Systems Constitutional: Negative for chills, fatigue and fever. HENT: Positive for ear pain. Respiratory: Negative for cough, shortness of breath and wheezing. Cardiovascular: Positive for leg swelling. Negative for chest pain and palpitations. Gastrointestinal: Negative for abdominal pain, constipation, diarrhea, nausea and vomiting. Musculoskeletal: Positive for arthralgias, gait problem and joint swelling. Skin: Negative for rash. Objective Physical Exam Constitutional: General: She is not in acute distress. Appearance: She is well-developed. She is obese. HENT: Head: Normocephalic and atraumatic. Right Ear: Tympanic membrane normal. Tenderness present. Left Ear: Tympanic membrane normal. Tenderness present. Ears: Comments: Bilateral canals with dry peeling skin, with mild erythema. Pain with manipulation of pinnas. Eyes: General: No scleral icterus. Conjunctiva/sclera: Conjunctivae normal. Cardiovascular: Rate and Rhythm: Normal rate and regular rhythm. Heart sounds: Normal heart sounds. No murmur heard. Pulmonary: Effort: Pulmonary effort is normal. No respiratory distress. Breath sounds: Normal breath sounds. No wheezing, rhonchi or rales. Musculoskeletal: Left foot: Decreased range of motion. Normal capillary refill. Swelling, tenderness and bony tenderness present. Normal pulse. Comments: Left foot with mild swelling dorsal/lateral foot and lateral ankle, tender over 1st, 2nd, 5th MT and lateral ankle. Skin: General: Skin is warm and dry. Neurological: General: No focal deficit present. Mental Status: She is alert and oriented to person, place, and time. Sensory: No sensory deficit. Psychiatric: Mood and Affect: Mood normal. Behavior: Behavior normal. Assessment/Plan Diagnoses and all orders for this visit: Type 2 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, with long-term current use of insulin, unspecified laterality, unspecified retinopathy severity ([facility]/HCC) - insulin pen needle (BD Pen Needle Shakira U/F) 32G x 4 mm misc; Inject 1 each under the skin in the morning and 1 each in the evening and 1 each before bedtime. USE DIRECTED DAILY. Provided pt with refill on pen needles today. HgbA1c on 04/25/2023 was 8.1. Follow up with Dr. Thayer as scheduled for recheck. Diabetic autonomic neuropathy associated with type 2 diabetes mellitus (CMS/HCC) Advised pt she cannot take the Gabapentin as it caused hallucinations for her in the past. She will continue the Baclofen prn. Left foot pain - XR foot 3+ views left; Future Will obtain x-rays for further evaluation. Will notify pt of the results once received. Acute left ankle pain - XR ankle 3+ views left; Future Will obtain x-rays for further evaluation. Will notify pt of the results once received. KILO wrap applied to left foot/ankle. Pt tolerated this well and noted relief of some of the pain after placement. N/V status intact after placement. Rest, can apply ice to the area 20 min on 20 min off as needed - over the KILO wraps, not directly on the skin, elevate as often as possible. Can take Tylenol as needed for pain. Acute diffuse otitis externa of both ears - [id number]-[id number] (Cortisporin) 3.5-39614-9 otic suspension; Administer 3 drops into each ear in the morning and 3 drops at noon and 3 drops in the evening and 3 drops before bedtime. Do all this for 7 days. Start the above drops as prescribed. Avoid putting anything other than the drops in the ear canals. Follow up if no improvement over the next week. Follow up for Appointment As Scheduled. documented in this encounter [facility] Evaluation note Note Date & Type Note Facility Evaluation note Diagnosis Type 2 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, with long-term current use of insulin, unspecified laterality, unspecified retinopathy severity ([facility]/HCC)- Primary Diabetic autonomic neuropathy associated with type 2 diabetes mellitus ([facility]/HCC) Type II or unspecified type diabetes mellitus with neurological manifestations, not stated as uncontrolled Left foot pain Pain in soft tissues of limb Acute left ankle pain Acute diffuse otitis externa of both ears documented in this encounter [facility] Summary Purpose Family History No Family History Records FoundNo Family History Records FoundNo Family History Records FoundNo Family History Records Found Advance Directives No Advanced Directives Records FoundNo Advanced Directives Records FoundNo Advanced Directives Records FoundNo Advanced Directives Records Found Additional Source Comments INFORMATION SOURCE (unrecogn ized section and content) DATE CREATED AUTHOR 05/18/2021 [facility] DATE CREATED AUTHOR AUTHOR'S ORGANIZ ATION 03/07/2022 [facility] DATE CREATED AUTHOR AUTHOR'S ORGANIZ ATION 08/23/2022 [facility] DATE CREATED AUTHOR AUTHOR'S ORGANIZ ATION 11/11/2023 [facility] Care Teams (unrecognized sec tion and content) Signalman Relationship Specialty Start Date End Date Rio Thayer MD [address] [address] PCP - Devoted 04/24/20 Rio Thayer MD [address] [facility] [address] [place] [address] PCP - General Family Medicine 09/01/22 Signalman Relationship Specialty Start Date End Date Rio Thayer MD [address] [place] [address] [place] [address] PCP - Devoted 04/24/20 Rio Thayer MD [address] [facility] [address] [place] [address] PCP - General Family Medicine 09/01/22 Signalman Relationship Specialty Start Date End Date Rio Thayer MD [address] [facility] [address] [place] [address] PCP - Devoted 04/24/20 Rio Thayer MD [address] [facility] [address] [place] [address] PCP - General Family Medicine 09/01/22 Reason for Visit (unrecogniz ed section and content) Reason Comments Edema Top of left foot and into her left ankle. She thinks she could have possible twisted it but does not remember hurting it. Started Monday. Med Refill Pen needles FOR RECORDS PERTAINING TO PATIENTS WHO ARE [...] BE BASED ON THE PRIMARY CLINICAL RECORDS. [employer] provides no warranty or guarantee of the accuracy or completeness of information in this document.
== END 2023-11-23 08:52 | disposition home or self-care (01) ==
LOC: CARD 08:51
PROVIDERS: PCP Family Medicine; Visit Provider Family Medicine
DX: R01.1 Cardiac murmur, unspecified (principal)
CPT/HCPCS: 93306

== ENCOUNTER 2024-11-26 09:12 | Outpatient (OUT) | payer MEDICARE, SELFPAY ==
--- OUTSIDE RECORDS SUMMARY | 2024-11-26 09:23 | XMS_ITS | CCD ---
Author Organization [facility] Care Team Providers Care Wet Roaster Name Role Phone JEOVANY, DR BAUM Attending Unavailable JEOVANY, DR BAUM Consulting Unavailable JEOVANY, DR BAUM Primary Care Unavailable JEOVANY, DR BAUM Admitting Unavailable LEO, DR ALISA Shaffer Consulting Unavailable Bautista Thayer MD Unavailable Bautista Thayer MD Primary Care Provider Bautista Thayer MD Unavailable Dc HUYNH, Britni Unavailable [phone] Korey Valencia DO Attending Provider [phone] Bautista Thayer MD Primary Care Provider Korey Valencia DO Attending Provider Bautista Thayer MD Primary Care Provider Vernell Llamas MD Unavailable Eriberto Hdez DO Unavailable [phone] Korey Valencia Attending Unavailable Bautista Thayer Primary Care Unavailable Korey Valencia Admitting Unavailable Korey Valencia Attending Unavailable Bautista Thayer Primary Care Unavailable Korey Valencia Admitting Unavailable Candice Randle LPN Unavailable Unavailable Bautista Thayer MD Unavailable Candice Randle LPN Unavailable BAUTISTA THAYER Attending Unavailable VERNELL LLAMAS Attending Unavailable KOREY VALENCIA Attending Unavailable ERIBERTO HDEZ Attending Unavailable VERNELL LLAMAS Referring Unavailable KOREY VALENCIA Attending Unavailable BAUTISTA THAYER Attending Unavailable SOLITARIO LEÓN Attending Unavailable BAUTISTA THAYER Attending Unavailable MUKESH FERNANDEZ Attending Unavailable BAUTISTA THAYER Attending Unavailable BAUTISTA THAYER Attending Unavailable Bautista Tahyer MD Primary Care Provider NAGI MURRY Attending Unavailable BAUTISTA THAYER Primary Care Unavailable NAGI MURRY Referring Unavailable Allergies Allergy Classification Reported Allergen(s) Allergy Type Date of Onset Reaction(s) Facility (20 sources) Aluminum aspirin; Translations: [ASPIRIN] Drug Allergy 3 [facility] (20 sources) gabapentin Drug Allergy 7 Hallucinations [facility] (1 source) Aspirin Drug Allergy 5 [facility] (1 source) Aspirin Drug Allergy 3 [facility] Medications Current Medications Medication Drug Class(es) Dates Sig (Normalized) Sig (Original) acetaminophen 500 mg oral tablet (20 sources) Start: 06-24-2024 take 2 tablets by mouth every six hours as needed for pain Acetaminophen (Tylenol Extra Strength) 500 mg tablet Active 1000 MG PO Every 6 hours as needed for pain June 24, 2024 1:00am take 1 tablet by rossana th every six hours as needed acetaminophen (Tylenol) 500 MG tablet Ta ke 500 mg by mouth every 6 (six) hours if needed. Active [id number] 200 actuat albuterol 0.09 mg/actuat metered dose inhaler (20 sources) beta2-Adrenergic Agonist Start: 11-11-2024 take 2 puff(s) by inhalation every six hours albuterol 90 mcg/actuation inhaler Inhale 2 puffs every 6 hours if needed for shortness of breath. 11/11/2024 Active Start: 11-11-2024 take 2 puff(s) by in halation every six hours albuterol HFA 90 mcg/act inhaler Indications: Asthma, unspecified asthma severity, unspecified whether complicated, unspecified whether persistent (HCC) Inhale 2 puffs every 6 (six) hours if needed for shortness of breath 18 g 3 11/11/2024 Active Start: 11-11-2024 take 2 puff(s) by in halation every six hours albuterol HFA 90 mcg/act inhaler Indications: Asthma, unspecified asthma severity, unspecified whether complicated, unspecified whether persistent (HCC) Inhale 2 puffs every 6 (six) hours if needed for shortness of breath 18 g 3 11/11/2024 Active Start: 06-24-2024 take 2 puff(s) by in halation every four hours as needed for wheezing Albuterol Sulfate 90 mcg/actuation HFA aerosol inhaler Active 2 PUFF INHALATION Every 4 hours as needed for shortness of breath or wheezing June 24, 2024 1:00am FreeTextSi puffs as needed Inhalation every 4 hrs; Note: Source Status: Not-TakingundefinedPRN; Refills: 0; Qty: 1 Inhaler; Provider: Nicole De Leon Start: 10-04-2023 End: 11-11-2024 take 2 puff(s) by inhalation every six hours albuterol HFA 90 mcg/act inhaler Indications: Asthma, unspecified asthma severity, unspecified whether complicated, unspecified whether persistent (HCC) Inhale 2 puffs every 6 (six) hours if needed for shortness of breath 18 g 3 10/04/2023 11/11/2024 Discontinued (Reorder) Start: 03-27-2023 End: 03-26-2024 albuterol (2.5 MG/3ML) 0.083 % nebulizer solution Indications: Asthma, unspecified asthma severity, unspecified whether complicated, unspecified whether persistent (HCC) Take 3 mL (2.5 mg) by nebulization every 6 (six) hours if needed for wheezing 75 mL 11 03/27/2023 Active Start: 03-27-2023 take 2 puff(s) by in halation every six hours albuterol HFA 90 mcg/act inhaler Indications: Asthma, unspecified asthma severity, unspecified whether complicated, unspecified whether persistent (CMS/HCC) Inhale 2 puffs every 6 (six) hours if needed for shortness of breath 18 g 3 03/27/2023 Active baclofen 10 mg oral tablet (20 sources) gamma-Aminobutyric Acid-ergic Agonist Start: 03-27-2023 take 1 tablet by mouth three times daily at mealtime baclofen (Lioresal) 10 MG tablet Indications: Restless legs TAKE 1 TABLET BY MOUTH WITH FOOD or milk THREE TIMES DAILY 270 tablet 1 11/07/2023 Active benzonatate 200 mg oral capsule (4 sources) Non-narcotic Antitussive Start: 04-11-2023 take 1 capsule by mouth three times daily as needed for cough benzonatate (Tessalon) 200 MG capsule Indications: Bronchitis with bronchospasm Take 1 capsule (200 mg) by mouth 3 (three) times a day as needed for cough Do not crush or chew. 21 capsule 1 04/11/2023 Active cephalexin 500 mg oral capsule (17 sources) Cephalosporin Antibacterial Start: 06-20-2024 End: 08-12-2024 take 1 capsule by mouth twice daily cephalexin (Keflex) 500 MG capsule Indications: Basal cell carcinoma (BCC) of skin of nose Take 1 capsule by mouth, bid x 10 days. 20 capsule 06/20/2024 08/12/2024 Discontinued (Other) Start: 04-09-2024 End: 04-19-2024 take 1 capsule by mouth in the morning, then take 1 capsule by mouth in the evening, then take 1 capsule by mouth at bedtime cephalexin (Keflex) 500 MG capsule Indications: Cellulitis of left upper extremity Take 1 capsule (500 mg) by mouth in the morning and 1 capsule (500 mg) in the evening and 1 capsule (500 mg) before bedtime. Do all this for 10 days. 30 capsule 04/09/2024 04/19/2024 Active Continuous Blood Gluc Receiv er (FreeStyle Ivy 2 [place]) device (20 sources) Start: 08-22-2022 Continuous Blo od Gluc Nutrition Teacher (FreeStyle Ivy 2 [place]) device USE DIRECTED DAILY FOR 365 DAYS 08/22/2022 Active Start: 08-22-2022 Continuous Blo od Gluc Nutrition Teacher (FreeStyle Ivy 2 [place]) device USE DIRECTED DAILY FOR 365 DAYS 0 08/22/2022 Active Continuous Blood Gluc Sensor (FreeStyle Ivy 2 Sensor) misc (4 sources) Start: 08-22-2022 Continuous Blo od Gluc Sensor (FreeStyle Ivy 2 Sensor) misc USE 1 SENSOR EVERY 14 DAYS 0 08/22/2022 Active Continuous Glucose Nutrition Teacher (FreeStyle Ivy 2 [place]) device (4 sources) Start: 08-20-2024 Continuous Glu cose Nutrition Teacher (FreeStyle Ivy 2 [place]) device Indications: Uncontrolled type 2 diabetes mellitus with hypoglycemia, unspecified hypoglycemia coma status (HCC) Inject 1 Device under the skin Daily 1 each 08/20/2024 Active Start: 08-20-2024 Continuous Glu cose Nutrition Teacher (FreeStyle Ivy 2 [place]) device Indications: Uncontrolled type 2 diabetes mellitus with hypoglycemia, unspecified hypoglycemia coma status (CMS/HCC) Inject 1 Device under the skin Daily 1 each 08/20/2024 Active Continuous Glucose Sensor (FreeStyle Ivy 2 Sensor) misc (20 sources) Start: 08-20-2024 Continuous Glu cose Sensor (FreeStyle Ivy 2 Sensor) mis Indications: Uncontrolled type 2 diabetes mellitus with hypoglycemia, unspecified hypoglycemia coma status (HCC) Inject 1 Device under the skin every 14 (fourteen) days 6 each 3 08/20/2024 Active Start: 08-20-2024 Continuous Glu cose Sensor (FreeStyle Ivy 2 Sensor) mis Indications: Uncontrolled type 2 diabetes mellitus with hypoglycemia, unspecified hypoglycemia coma status (CMS/HCC) Inject 1 Device under the skin every 14 (fourteen) days 6 each 3 08/20/2024 Active Start: 05-16-2024 Continuous Glu cose Sensor (FreeStyle Ivy 2 Sensor) mis Indications: Uncontrolled type 2 diabetes mellitus with hypoglycemia, unspecified hypoglycemia coma status (CMS/HCC) Inject 1 Device under the skin every 14 (fourteen) days 6 each 3 05/16/2024 Active Start: 02-06-2024 End: 05-16-2024 Continuous Glucose Sensor (F reeStyle Ivy 2 Sensor) misc Indications: Uncontrolled type 2 diabetes mellitus with hypoglycemia, unspecified hypoglycemia coma status (CMS/HCC) Inject 1 Device under the skin every 14 (fourteen) days 6 each 3 02/06/2024 05/16/2024 Discontinued (Reorder) Start: 02-06-2024 Continuous Glu cose Sensor (FreeStyle Ivy 2 Sensor) mis Indications: Uncontrolled type 2 diabetes mellitus with hypoglycemia, unspecified hypoglycemia coma status (CMS/HCC) Inject 1 Device under the skin every 14 (fourteen) days 6 each 3 02/06/2024 Active Start: 01-18-2024 End: 02-06-2024 Continuous Glucose Sensor (F reeStyle Ivy 2 Sensor) [facility] USE 1 SENSOR EVERY 14 DAYS 01/18/2024 02/06/2024 Discontinued (Reorder) 24 hr dilTIAZem hydrochloride 120 mg extended release oral capsule (1 source) Calcium Channel Reyna Start: 11-21-2024 End: 11-21-2025 take 1 capsule by mouth once daily dilTIAZem CD (Cardizem CD) 120 mg 24 hr capsule Indications: Essential (primary) hypertension , Localized edema Take 1 capsule (120 mg) by mouth once daily. 90 capsule 3 11/21/2024 11/21/2025 Active Elastic Bandages & Supports (Post-OP Shoe/Soft Top Women) misc (20 sources) Start: 06-15-2023 apply 1 dose topically once daily Elastic Bandages & Supports (Post-OP Shoe/Soft Top Women) misc Indications: Closed fracture of left foot, initial encounter Apply the shoe daily, use until foot is healed 1 each 06/15/2023 Active ergocalciferol 1.25 mg oral capsule (20 sources) Provitamin D2 Compound Start: 06-24-2024 take 1 capsule by mouth every week Ergocalciferol (Vitamin D2) 1,250 mcg (50,000 unit) capsule Active 1250 MCG PO every week June 24, 2024 1:00am Start: 05-18-2024 take 1 capsule by mo uth every week ergocalciferol (Vitamin D2) 1.25 MG (26359 UT) capsule Indications: Vitamin D deficiency Take 1 capsule (1.25 mg) by mouth 1 (one) time per week 12 capsule 3 05/18/2024 Active Start: 12-27-2022 End: 05-16-2024 take 1 capsule by mouth every week ergocalciferol (Vitamin D2) 1.25 MG (09014 UT) capsule Indications: Vitamin D deficiency Take 1 capsule (1.25 mg) by mouth 1 (one) time per week 12 capsule 3 05/16/2024 Active Flash Glucose Sensor (Freest yle Ivy 2 Sensor) kit (2 sources) Start: 06-24-2024 Flash Glucose Sensor (Freestyle Ivy 2 Sensor) kit Active 0 .ROUTE June 24, 2024 1:00am As directed Start: 06-24-2024 Flash Glucose Sensor (Freestyle Ivy 2 Sensor) kit Active 0 .ROUTE June 24, 2024 12:00am As directed fluocinolone acetonide 0.1 mg/ml topical oil (20 sources) Corticosteroid Start: 02-29-2024 Fluocinolone Acetonide Scalp (fluocinolone) 0.01 % oil Indications: Psoriasis vulgaris Apply to scalp, up to twice a day for flares, 30 day supply 118.28 mL 11 02/29/2024 Active fluocinonide 0.5 mg/ml topical solution (20 sources) Corticosteroid Start: 02-29-2024 fluocinonide (Lidex) 0.05 % external solution Indications: Psoriasis vulgaris Apply to affected areas on the scalp, up to twice a day when flared, 30 day supply 60 mL 11 02/29/2024 Active furosemide 20 mg oral tablet (20 sources) Loop Diuretic Start: 12-27-2022 take 1 tablet by mouth in the morning furosemide (Lasix) 20 MG tablet Indications: Edema, unspecified type TAKE 1 TABLET BY MOUTH IN THE MORNING 100 tablet 3 12/29/2023 Active gabapentin 100 mg oral capsule (4 [...] / neomycin 3.5 mg/ml / polymyxin b [id number] unt/ml otic suspension (2 sources) Aminoglycoside Antibacterial, Polymyxin-class Antibacterial, Corticosteroid Start: 06-08-2023 End: 06-15-2023 neomycin-polymyxin -hydrocortisone (Cortisporin) [id number] otic suspension Indications: Acute diffuse otitis externa of both ears Administer 3 drops into each ear in the morning and 3 drops at noon and 3 drops in the evening and 3 drops before bedtime. Do all this for 7 days. 10 mL 0 06/08/2023 06/15/2023 Active Insulin Aspart U-100 (Novolog Flexpen U-100 Insulin) 100 unit/mL (3 mL) insulin pen (2 sources) Start: 06-24-2024 inject 6 [IU] by subcutaneous injection twice daily Insulin Aspart U-100 (Novolog Flexpen U-100 Insulin) 100 unit/mL (3 mL) insulin pen Active 6 UNIT SUBCUT Twice daily June 24, 2024 1:00am Start: 06-24-2024 inject 6 [IU] by sub cutaneous injection twice daily Insulin Aspart U-100 (Novolog Flexpen U-100 Insulin) 100 unit/mL (3 mL) insulin pen Active 6 UNIT SUBCUT Twice daily June 24, 2024 12:00am 3 ml insulin aspart, human 100 unt/ml pen injector (20 sources) Insulin Analog Start: 08-12-2024 inject 6 [IU] by subcutaneous injection in the morning insulin aspart (NovoLOG FLEXPEN) 100 UNIT/ML pen Indications: 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, unspecified laterality (CMS/HCC) INJECT 5 (FIVE) UNITS SUBCUTANEOUSLY TWICE DAILY (IN THE MORNING and IN THE EVENING) WITH MEALS 15 mL 11 09/12/2023 08/12/2024 Discontinued Start: 04-25-2023 End: 04-19-2024 inject 8 [IU] [...] ml insulin degludec 200 unt/ml pen injector (20 sources) Insulin Analog Start: 08-08-2023 End: 08-12-2024 inject 30 [IU] by subcutaneous injection at bedtime Tresiba FlexTouch 200 UNIT/ML injection Indications: Uncontrolled type 2 diabetes mellitus with hypoglycemia, unspecified hypoglycemia coma status (CMS/HCC) INJECT 30 UNITS SUBCUTANEOUSLY AT BEDTIME 13.5 mL 3 04/05/2024 08/12/2024 Discontinued (Cost of medication) Start: 05-03-2023 inject 76 [IU] by ghosh bcutaneous injection at bedtime Tresiba FlexTouch 200 UNIT/ML injection Indications: Uncontrolled type 2 diabetes mellitus with hypoglycemia, unspecified hypoglycemia coma status (HCC) (CMS/HCC) INJECT 76 UNITS SUBCUTANEOUSLY AT BEDTIME 9 mL 12 05/03/2023 Active Insulin Degludec (Tresiba Flextouch U-200) 200 unit/mL (3 mL) insulin pen (2 sources) Start: 06-24-2024 Insulin Deglud ec (Tresiba Flextouch U-200) 200 unit/mL (3 mL) insulin pen Active 30 UNIT SUBCUT Daily at bedtime June 24, 2024 1:00am Start: 06-24-2024 Insulin Deglud ec (Tresiba Flextouch U-200) 200 unit/mL (3 mL) insulin pen Active 30 UNIT SUBCUT Daily at bedtime June 24, 2024 12:00am 1.5 ml insulin glargine 300 unt/ml pen injector (9 sources) Insulin Analog Start: 10-24-2024 End: 10-24-2025 Toujeo SoloStar U-300 Insulin 300 unit/mL (1.5 mL) pen Inject 33 Units under the skin. 10/24/2024 10/24/2025 Active Start: 08-12-2024 inject 30 [IU] by ghosh bcutaneous injection at bedtime Toujeo SoloStar 300 UNIT/ML injection Indications: Uncontrolled type 2 diabetes mellitus with hypoglycemia without coma (HCC) INJECT 30 UNITS SUBCUTANEOUSLY (UNDER THE SKIN) AT BEDTIME 9 mL 3 08/12/2024 Active Start: 08-12-2024 inject 30 [IU] by ghosh bcutaneous injection at bedtime insulin glargine (Toujeo Max SoloStar) 300 UNIT/ML injection Indications: Uncontrolled type 2 diabetes mellitus with hypoglycemia without coma (CMS/HCC) Inject 30 Units under the skin at bedtime 9 mL 3 08/12/2024 Active Start: 08-12-2024 inject 30 [IU] by ghosh bcutaneous injection at bedtime insulin glargine (Toujeo Max SoloStar) 300 UNIT/ML injection Indications: Uncontrolled type 2 diabetes mellitus with hypoglycemia without coma (CMS/HCC) Inject 30 Units under the skin at bedtime 9 mL 3 08/12/2024 Active Start: 08-10-2024 End: 08-12-2024 inject 30 [IU] by subcutaneous injection at bedtime insulin glargine (Toujeo Max SoloStar) 300 UNIT/ML injection Indications: Uncontrolled type 2 diabetes mellitus with hypoglycemia without coma (CMS/HCC) Inject 30 Units under the skin at bedtime 9 mL 3 08/10/2024 08/12/2024 Discontinued (Reorder) 3 ml insulin lispro-aabc 100 unt/ml pen injector (8 sources) Insulin Analog Start: 11-11-2024 End: 12-11-2024 Lyumjev KwikPen U-100 Insulin 100 unit/mL insulin pen Inject 8 Units under the skin. 11/11/2024 12/11/2024 Active Start: 09-04-2024 End: 11-11-2024 inject 6 [IU] by subcutaneous injection in the morning Lyumjev KwikPen 100 UNIT/ML pen Indications: Uncontrolled type 2 diabetes mellitus with hypoglycemia, unspecified hypoglycemia coma status (HCC) INJECT 6 (SIX) UNITS SUBCUTANEOUSLY (UNDER THE SKIN) IN THE MORNING then INJECT 6 (SIX) UNITS SUBCUTANEOUSLY (UNDER THE SKIN) BEFORE bedtime 15 mL 09/05/2024 11/11/2024 Discontinued (Reorder) levothyroxine sodium 0.05 mg oral tablet (20 sources) l-Thyroxine Start: 09-23-2024 take 1 tablet by mouth once daily before mealtime levothyroxine (Synthroid, Levoxyl) 50 mcg tablet Take 1 tablet (50 mcg) by mouth once daily in the morning. Take before meals. Take on an empty stomach 09/23/2024 Active Start: 06-24-2024 take 1 capsule by mo uth once daily in the morning Levothyroxine 50 mcg capsule Active 50 MCG PO Every morning June 24, 2024 1:00am Start: 06-26-2023 take 1 tablet by rossana th in the morning levothyroxine (Synthroid, Levoxyl) 50 MCG tablet Indications: Hypothyroidism, unspecified type (CMS/HCC) TAKE 1 TABLET BY MOUTH IN THE MORNING ON AN EMPTY STOMACH 100 tablet 3 06/26/2023 Active Start: 08-22-2022 take 1 tablet by rossana th in the morning levothyroxine (Synthroid, Levoxyl) 50 MCG tablet TAKE 1 TABLET BY MOUTH IN THE MORNING ON AN EMPTY STOMACH 0 08/22/2022 Active losartan potassium 25 mg oral tablet (20 sources) Angiotensin 2 Receptor Reyna Start: 11-01-2022 End: 10-22-2024 take 1 tablet by mouth once daily losartan (Cozaar) 25 mg tablet Take 1 tablet (25 mg) by mouth once daily. 03/31/2023 Active ofloxacin 3 mg/ml ophthalmic solution (4 [...] 4 mg before bedtime. 0 08/25/2022 Active Polyethylene Glycol 400 (Dry Eye Relief (Peg 400)) 1 % drops (2 sources) Start: 06-24-2024 Polyethylene Glycol 400 (Dry Eye Relief (Peg 400)) 1 % drops Active 2 DROPS EYE-BOTH 2-3 TIMES PER DAY as needed for dry eye(s) June 24, 2024 1:00am Start: 06-24-2024 Polyethylene G lycol 400 (Dry Eye Relief (Peg 400)) 1 % drops Active 2 DROPS EYE-BOTH 2-3 TIMES PER DAY as needed for dry eye(s) June 24, 2024 12:00am traMADol hydrochloride 50 mg oral tablet (20 sources) Opioid Agonist Start: 09-14-2023 take 1 tablet by mouth every four hours for pain traMADol (Ultram) 50 MG tablet Indications: Degeneration of lumbar intervertebral disc Take 1 tablet (50 mg) by mouth every 4 (four) hours if needed for severe pain 180 tablet 09/14/2023 Active Start: 12-27-2022 take 1 tablet by rossana th every four hours for pain traMADol (Ultram) 50 MG tablet Indications: Degeneration of lumbar intervertebral disc Take 1 tablet (50 mg) by mouth every 4 (four) hours if needed for severe pain. 180 tablet 0 12/27/2022 Active Problems Active Problems Problem Classification Problem Date Documented Date Episodic/Chronic Administrative/social admission (4 sources) First encounter by subject; Translations: [Persons encountering health services in other specified circumstances] Onset: 11-21-2024 11-21-2024 Episodic Asthma (20 sources) Asthma; Translations: [Unspecified asthma, uncomplicated] Onset: 03-27-2023 03-27-2023 Chronic Blindness and vision defects (4 sources) Blurring of visual image; Translations: [Other visual disturbances] Onset: 11-21-2024 11-21-2024 Episodic Cancer of bronchus; lung (4 sources) History of malignant neoplasm of thoracic cavity structure; Translations: [Personal history of other malignant neoplasm of bronchus and lung] Onset: 11-21-2024 11-21-2024 Episodic Cancer of colon (20 sources) Malignant tumor of sigmoid colon; Translations: [Malignant neoplasm of sigmoid colon] Onset: 10-18-2022 10-18-2022 Chronic Cancer of colon (20 sources) History of malignant neoplasm of colon; Translations: [Personal history of other malignant neoplasm of large intestine] Onset: 06-23-2020 01-23-2023 Episodic Cataract (20 sources) Bilateral cataracts; Translations: [Unspecified cataract] Onset: 10-18-2022 10-18-2022 Chronic Chronic kidney disease (20 sources) Chronic kidney disease stage 3; Translations: [Stage 3 chronic kidney disease (HCC)] Onset: 10-18-2022 10-18-2022 Chronic Chronic kidney disease (2 sources) Chronic kidney disease; Translations: [Chronic kidney disease, stage 3 unspecified (Multi)] Onset: 11-21-2024 Conditions associated with dizziness or vertigo (20 sources) Dizziness; Translations: [Dizziness and giddiness] Onset: 08-08-2023 08-08-2023 Episodic Congestive heart failure; nonhypertensive (4 sources) Acute diastolic heart failure; Translations: [Acute diastolic (congestive) heart failure] Onset: 11-21-2024 11-21-2024 Chronic Coronary atherosclerosis and other heart disease (20 sources) Ischemic chest pain; Translations: [Chronic ischemic heart disease, unspecified] Onset: 04-25-2023 04-25-2023 Chronic Diabetes mellitus with complications (20 sources) Type 2 diabetes mellitus with diabetic chronic kidney disease; Translations: [Neuropathy due to diabetes mellitus] Onset: 03-07-2022 10-18-2022 Chronic Diabetes mellitus without complication (20 sources) Brittle diabetes mellitus; Translations: [Type 1 diabetes mellitus without complications] Onset: 04-25-2023 04-25-2023 Chronic Disorders of lipid metabolism (20 sources) Mixed hyperlipidemia; Translations: [Mixed hyperlipidemia] Onset: 10-18-2022 10-18-2022 Chronic Esophageal disorders (20 sources) Gastroesophageal reflux disease; Translations: [Gastro-esophageal reflux disease without esophagitis] Onset: 10-18-2022 10-18-2022 Chronic Essential hypertension (20 sources) Essential (primary) hypertension; Translations: [Essential hypertension] Onset: 03-02-2022 Chronic Heart valve disorders (8 sources) Mitral valve regurgitation; Translations: [Nonrheumatic mitral (valve) insufficiency] Onset: 11-21-2024 11-21-2024 Chronic Heart valve disorders (1 source) Heart murmur; Translations: [Cardiac murmur, unspecified] Onset: 11-21-2024 11-21-2024 Episodic Hypertension with complications and secondary hypertension (20 sources) 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; Translations: [Hypertensive heart and chronic kidney disease without heart failure, with stage 1 through stage 4 chronic kidney disease, or unspecified chronic kidney disease] Onset: 10-18-2022 10-18-2022 Chronic Immunizations and screening for infectious disease (2 sources) Patient encounter status; Translations: [Encounter for immunization] 02-06-2024 Episodic Malaise and fatigue (3 sources) Fatigue; Translations: [Chronic fatigue, unspecified] Onset: 11-21-2024 11-21-2024 Chronic Malaise and fatigue (1 source) Fatigue; Translations: [Other fatigue] Onset: 11-21-2024 11-21-2024 Episodic Neoplasms of unspecified nature or uncertain behavior (2 sources) Neoplastic disease; Translations: [Neoplasm of unspecified behavior of bone, soft tissue, and skin] 02-29-2024 Episodic Nonspecific chest pain (12 sources) Chest pain, unspecified; Translations: [Chest pain] Onset: 03-07-2022 11-11-2024 Episodic Nutritional deficiencies (20 sources) Vitamin D deficiency; Translations: [Vitamin D deficiency, unspecified] Onset: 10-18-2022 10-18-2022 Chronic Osteoarthritis (20 sources) Osteoarthritis of hip; Translations: [Osteoarthritis of hip, unspecified] Onset: 10-18-2022 10-18-2022 Chronic Other acquired deformities (6 sources) Surgical wound finding; Translations: [Acquired deformity of nose] 06-22-2024 Episodic Other aftercare (1 source) Encounter for other plastic and reconstructive surgery following medical procedure or healed injury; Translations: [Encounter for other plastic and reconstructive surgery following medical procedure or healed injury] Onset: 06-27-2024 Episodic Other aftercare (2 sources) alf (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 of insulin; Translations: [alf (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 of insulin (Multi)] Onset: 11-21-2024 Episodic Other and ill-defined heart disease (2 sources) Left ventricular hypertrophy; Translations: [Cardiomegaly] Onset: 11-21-2024 11-21-2024 Chronic Other and ill-defined heart disease (2 sources) Bilateral enlargement of atria; Translations: [Cardiomegaly] Onset: 11-21-2024 11-21-2024 Chronic Other and ill-defined heart disease (2 sources) Diastolic dysfunction; Translations: [Other ill-defined heart diseases] Onset: 11-21-2024 11-21-2024 Chronic Other and ill-defined heart disease (2 sources) Cardiomegaly; Translations: [Cardiomegaly] Onset: 11-21-2024 Chronic Other and ill-defined heart disease (2 sources) Other ill-defined heart diseases; Translations: [Other ill-defined heart diseases] Onset: 11-21-2024 Chronic Other connective tissue disease (2 sources) Pain in left foot; Translations: [Pain in left foot] 06-08-2023 Episodic Other ear and sense organ disorders (2 sources) Acute otitis externa; Translations: [Diffuse otitis externa, bilateral] 06-08-2023 Episodic Other endocrine disorders (20 sources) Hypoglycemia; Translations: [Hypoglycemia, unspecified] Onset: 10-18-2022 10-18-2022 Chronic Other endocrine disorders (4 sources) Diabetes insipidus; Translations: [Diabetes insipidus] Onset: 12-27-2022 12-27-2022 Chronic Other endocrine disorders (20 sources) Diabetes insipidus; Translations: [Diabetes insipidus] Onset: 12-27-2022 12-27-2022 Chronic Other hereditary and degenerative nervous system conditions (20 sources) Restless legs; Translations: [Restless legs syndrome] Onset: 10-18-2022 10-18-2022 Chronic Other inflammatory condition of skin (2 sources) Psoriasis vulgaris; Translations: [Psoriasis vulgaris] 02-29-2024 Chronic Other injuries and conditions due to external causes (2 sources) History of fall; Translations: [History of falling] Onset: 11-21-2024 11-21-2024 Episodic Other injuries and conditions due to external causes (2 sources) History of falling; Translations: [History of falling] Onset: 11-21-2024 Episodic Other lower respiratory disease (1 source) Shortness of breath; Translations: [SHORTNESS OF BREATH] Onset: 03-07-2022 Episodic Other lower respiratory disease (3 sources) Orthopnea; Translations: [Orthopnea] Onset: 11-21-2024 11-21-2024 Episodic Other lower respiratory disease (1 source) Orthopnea; Translations: [Orthopnea] Onset: 11-21-2024 Episodic Other non-epithelial cancer of skin (14 sources) Basal cell carcinoma of nose; Translations: [Basal cell carcinoma of skin of nose] Onset: 08-12-2024 06-20-2024 Episodic Other non-traumatic joint disorders (2 sources) Acute ankle pain; Translations: [Pain in left ankle and joints of left foot] 06-08-2023 Episodic Other nutritional; endocrine; and metabolic disorders (16 sources) Morbid obesity; Translations: [Morbid (severe) obesity due to excess calories] Onset: 12-27-2022 12-27-2022 Chronic Other nutritional; endocrine; and metabolic disorders (17 sources) Obesity caused by energy imbalance; Translations: [Morbid (severe) obesity due to excess calories] Onset: 12-27-2022 05-16-2024 Chronic Other nutritional; endocrine; and metabolic disorders (19 sources) Body mass index 30+ - obesity; Translations: [Body mass index (BMI) 35.0-35.9, adult] Onset: 05-16-2024 05-16-2024 Chronic Other nutritional; endocrine; and metabolic disorders (2 sources) Obesity, unspecified; Translations: [Obesity, unspecified] Onset: 11-21-2024 Chronic Other skin disorders (2 sources) Seborrheic keratosis; Translations: [Other seborrheic keratosis] 02-29-2024 Episodic Other skin disorders (2 sources) Inflamed seborrheic keratosis; Translations: [Inflamed seborrheic keratosis] 02-29-2024 Episodic Peripheral and visceral atherosclerosis (20 sources) Atherosclerosis of aorta; Translations: [Atherosclerosis of aorta] Onset: 11-07-2023 11-07-2023 Chronic Residual codes; unclassified (3 sources) Localized edema; Translations: [Localized edema] Onset: 11-21-2024 11-21-2024 Episodic Residual codes; unclassified (2 sources) Never smoked tobacco; Translations: [Other specified health status] Onset: 11-21-2024 11-21-2024 Episodic Residual codes; unclassified (1 source) Localized edema; Translations: [Localized edema] Onset: 11-21-2024 Episodic Residual codes; unclassified (2 sources) Other specified health status; Translations: [Other specified health status] Onset: 11-21-2024 Episodic Spondylosis; intervertebral disc disorders; other back problems (20 sources) Degeneration of lumbar intervertebral disc; Translations: [Other intervertebral disc degeneration, lumbar region] Onset: 08-01-2016 10-18-2022 Chronic Syncope (5 sources) Near syncope; Translations: [Syncope and collapse] Onset: 11-21-2024 11-21-2024 Episodic Thyroid disorders (20 sources) Hypothyroidism; Translations: [Hypothyroidism, unspecified] Onset: 10-18-2022 10-18-2022 Chronic Unclassified (1 source) First encounter by subject 11-21-2024 Past or Other Problems Problem Classification Problem Date Documented Da te Episodic/Chronic Abdominal hernia (20 sources) Hiatal hernia; Translations: [Diaphragmatic hernia without obstruction or gangrene] Onset: 05-21-2020 01-23-2023 Episodic Calculus of urinary tract (20 sources) Urolithiasis ; Translations: [Urinary calculus, unspecified] Onset: 10-18-2022 10-18-2022 Episodic E Codes: Fall (20 sources) Fall in home; Translations: [Unspecified fall, initial encounter] Onset: 02-06-2024 02-06-2024 Episodic E Codes: Fall (2 sources) Fall in home 02-06-2024 Fracture of lower limb (20 sources) Closed fracture of foot; Translations: [Unspecified fracture of left foot, subsequent encounter for fracture with delayed healing] Onset: 06-26-2023 06-26-2023 Episodic Other and unspecified benign neoplasm (20 sources) Tubular adenoma ; Translations: [Benign neoplasm, unspecified site] Onset: 10-18-2022 10-18-2022 Episodic Other bone disease and musculoskeletal deformities (20 sources) Osteopenia; Translations: [Other specified disorders of bone density and structure, unspecified site] Onset: 10-18-2022 10-18-2022 Episodic Other gastrointestinal disorders (20 sources) Dysphagia; Translations: [Dysphagia, unspecified] Onset: 10-18-2022 10-18-2022 Episodic Other gastrointestinal disorders (20 sources) Flatulence, eructation and gas pain; Translations: [Flatulence] Onset: 02-21-2023 02-21-2023 Episodic Other infections; including parasitic (20 sources) Personal history of other infectious and parasitic diseases; Translations: [History of COVID-19] Onset: 02-06-2024 02-06-2024 Episodic Other lower respiratory disease (4 sources) Cough; Translations: [Acute cough] Onset: 03-27-2023 Resolved: 06-08-2023 03-27-2023 Episodic Other lower respiratory disease (20 sources) Cough; Translations: [Acute cough] Onset: 03-27-2023 Resolved: 06-08-2023 06-08-2023 Episodic Other nutritional; endocrine; and metabolic disorders (20 sources) Body mass index 40+ - severely obese; Translations: [Body mass index (BMI) 40.0-44.9, adult] Onset: 06-23-2020 Resolved: 07-24-2023 01-23-2023 Chronic Other skin disorders (20 sources) Actinic keratosis; Translations: [Actinic keratosis] Onset: 10-18-2022 10-18-2022 Episodic Other upper respiratory infections (20 sources) Upper respiratory infection; Translations: [Acute upper respiratory infection, unspecified] Onset: 03-27-2023 Resolved: 04-11-2023 04-11-2023 Episodic Residual codes; unclassified (20 sources) Edema; Translations: [Edema, unspecified] Onset: 12-27-2022 12-27-2022 Episodic Skin and subcutaneous tissue infections (20 sources) Cellulitis of left upper limb; Translations: [Cellulitis of left upper limb] Onset: 04-09-2024 04-09-2024 Episodic Spondylosis; intervertebral disc disorders; other back problems (20 sources) Lumbar radiculopathy; Translations: [Radiculopathy, lumbar region] Onset: 08-01-2016 01-23-2023 Episodic Unclassified (1 source) Onset: 11-21-2024 11-21-2024 Results Test Name Value Interpretation Reference Range Facility ECG 12 [place] 11-21-2024 [facility] Work Phone: Laboratory - Hematology and Cell countson 11-11-2024 HbA1c (Bld) [Mass fraction] 7.7 % [facility] No Panel Informationon 11-11 Interpretation and review of laboratory results Abnormal [facility] ALBUMIN, RANDOM URINE W/CREA TININEon 08-13-2024 ALBUMIN, URINE 1.1 mg/dL Normal See Note: [employer] Comment on above: Result Comment: Refe rence Range: Reference Range Not established Performed By: #### 6 517 #### [facility] [address], [address] [place] [id number] Dresser Tender: Shashank Stahl MD ALBUMIN/CREATININE RATIO, RANDOM URINE 42 mg/g creat High <30 [facility] Comment on above: Result Comment: The ADA defines abnormalities in albumin excretion as follows: Albuminuria Category Result (mg/g creatinine) Normal to Mildly increased <30 Moderately increased 30-299 Severely increased > OR = 300 The ADA recommends that at least two of three specimens collected within a 3-6 month period be abnormal before considering a patient to be within a diagnostic category. Performed By: #### 6 517 #### [facility] [address], [address] [place] [address] Dresser Tender: Shashank Stahl MD Creatinine (U) [Mass/Vol] 26 mg/dL Normal 20-275 [facility] Comment on above: Performed By: #### 6 517 #### [facility] [address], [address] [place] [address] Dresser Tender: Shashank Stahl MD TSH W/REFLEX TO FT4on 2024 TSH W/REFLEX TO FT4 1.28 mIU/L Normal 0.40-4.50 [facility] Comment on above: Performed By: #### 3 [id number] #### [facility] [address], [address] [place] [address] Dresser Tender: Shashank Stahl MD Laboratory - Hematology and Cell countson 08-12-2024 HbA1c (Bld) [Mass fraction] 7.6 % [facility] No Panel Informationon 08-12 Interpretation and review of laboratory results Abnormal [facility] Pathology study report docum entOrdered By: Maciej Brown on 07-01-2024 Pathology study [facility] Other Glucose Glucometer (dC) [M ass/Vol]Ordered By: Korey Valencia on 06-27-2024 Glucose [Mass/Vol] Capillary blood glucose measurement by glucometer (mass/volume) [facility] Comment on above: Random Glucose Refer ence Range is dependent on time and content of last meal. Glucose of more than 200 mg/dL in a nonstressed, ambulatory subject supports the diagnosis of Diabetes Mellitus. Glucose Poct Glucometerson 0 06-27-2024 Commemt1 Glu2: Cleaned Meter Normal [facility] Comment on above: Result Comment: PERF ORMED BY: [facility] [address] [place] [address] PATHOLOGIST MANAGER TALENT MANAGEMENT MIGUELITO JAIMES M.D. Performed By: #### G SANCHO #### Point of Care testing , Glucose [Mass/Vol] 110 mg/dL Normal [facility] Comment on above: Result Comment: [place] Glucose Reference Range is dependent on time and content of last meal. Glucose of more than 200 mg/dL in a nonstressed, ambulatory subject supports the diagnosis of Diabetes Mellitus. Performed By: #### G LULS #### Point of Care testing , Commemt1 Glu2: Cleaned Meter Normal [facility] Comment on above: Result Comment: PERF ORMED BY: [facility] [place] [place] [place] [id number] PATHOLOGIST MANAGER TALENT MANAGEMENT MIGUELITO JAIMES M.D. Performed By: #### G LULS #### Point of Care testing , Glucose [Mass/Vol] 141 mg/dL Normal [facility] Comment on above: Result Comment: [place] Glucose Reference Range is dependent on time and content of last meal. Glucose of more than 200 mg/dL in a nonstressed, ambulatory subject supports the diagnosis of Diabetes Mellitus. Performed By: #### G THANIALS #### Point of Care testing , Pablo 06-27-2024 L - -------- Specimen: [id number] Received: 06/28/24 Status: KEVIN Carney Num: [id number] Spec Type: Surgical Subm Dr: Korey Valencia,DO Tissues: A Debridement-Skin/Othe r Than Skin (NOSE) Procedures: HE/3, Gross/Micro L3 -------- Age/ Patient Sex Location Account Attending Physician -------- Willie Espinosa 84/F [place] [id number] Korey Valencia,DO -------- SPEC NUM: [id number] RECD: 06/28/24 STATUS: KEVIN PEDRO NUM: [id number] CARMEN: 06/27/24- SUBM DR: Korey Valencia DO ENTERED: 06/28/24 [facility] DR: JEREMY TYPE: Surgical DEPT: S ORDERED: HE/3, Gross/Micro L3 ORDERED: HE/3, Gross/Micro L3 Pathological Diagnosis Nasal wound, debridement, excision: - Skin and subcutaneous tissue with extended ulceration and solar elastosis. - See comment. Comment: The diagnostic interpretation is limited due to the presence of extensive ulceration. Recommend removal of any lesion which clinically recurs at this site. Clinical Information Nosal wound Gross Description Received in formalin labeled with the patients name, date of , and nasal wound debridement/skin BX is a casey-menard, wrinkled, teardrop portion of skin, 2 x 1.5 cm, excised to depth of 0.4 cm. Eccentrically located on the skin is a menard-pink, crusted depression, 1.2 x 1 cm that is situated 0.1 cm from the closest peripheral margin. Within the depression is a 0.3 cm in greatest dimension transmural defect. One half of the specimen is inked black with the opposing half inked green. Serial sections reveal casey-menard to yellow, dull and indurated cut surfaces. The specimen is entirely submitted progressing from the tapered polar tip to the widened polar end in A1?A3, respectively. Cassettes: A1 Bisected tapered polar tip -------- Specimen: [id number] Received: 06/28/24 Status: KEVIN Carney Num: [id number] Spec Type: Surgical Subm Dr: Korey Valencia DO Tissues: A Debridement-Skin/Othe r Than Skin (NOSE) Procedures: /3, Gross/Micro L3 -------- Patient: Willie Espinosa [id number] (Continued) -------- Specimen: [id number] Received: 06/28/24 (Continued) Gross Description (Continued) Signed (signature on file) Maciej Brown MD 07/01/24 1320 -------- Specimen: [id number] Received: 06/28/24 Status: KEVIN Carney Num: [id number] Spec Type: Surgical Subm Dr: Korey Valencia DO Tissues: A Debridement-Skin/Othe r Than Skin (NOSE) Procedures: HE/3, Gross/Micro L3 -------- Patient: Willie Espinosa [id number] (Continued) -------- Specimen: [id number] Received: 06/28/24 (Continued) Gross Description (Continued) A2 Trisected center of specimen A3 Serially sectioned, widened polar end (3, ns, [id number] A) Microscopic Description Microscopic examination is performed. CPT Codes 27818 -------- -------- Specimen: [id number] Received: 06/28/24 Status: KEVIN Carney Num: [id number] Spec Type: Surgical Subm Dr: Korye Valencia DO Tissues: A Debridement-Skin/Othe r Than Skin (NOSE) Procedures: HE/3, Gross/Micro L3 -------- Patient: Willie Espinosa [id number] (Continued) -------- Signed (signature on file) Maciej Brown MD 07/01/24 1320 Normal [facility] No Panel InformationOrdered By: Korey Valencia on 06-27-2024 Bedside Glucose Comment Glu2: cleaned meter [facility] Potassiumon 06-27-2024 Potassium [Moles/Vol] 5.2 mmol/L High 3.5-5.1 [facility] Comment on above: Result Comment: PERF ORMED BY: [facility] [address] [place] [address] PATHOLOGIST MANAGER TALENT MANAGEMENT MIGUELITO JAIMES M.D. Performed By: #### K #### [address] Potassium [Moles/volume] in Serum or PlasmaOrdered By: ALISA DAWN on 06-27-2024 Potassium [Moles/Vol] Potassium [Moles/volume] in Serum or Plasma High 3.5-5.1 [facility] Basic Metabolic Panelon Anion gap [Moles/Vol] 12.8 mmol/L Normal 6.0-15.0 [facility] Comment on above: Performed By: #### B MP, CBC #### [address] Calcium [Mass/Vol] 9.5 mg/dL Normal 8.6-10.3 [facility] Comment on above: Result Comment: PERF ORMED BY: [place] [address] PATHOLOGIST MANAGER TALENT MANAGEMENT MIGUELITO JAIMES M.D. Performed By: #### B MP, CBC #### [address] Chloride [Moles/Vol] 110 mmol/L High 98-107 [facility] Comment on above: Performed By: #### B MP, CBC #### [address] CO2 [Moles/Vol] 25.9 mmol/L Normal 21.0-31.0 [facility] Comment on above: Performed By: #### B MP, CBC #### [address] Creatinine [Mass/Vol] 1.23 mg/dL High 0.60-1.20 [facility] Comment on above: Performed By: #### B MP, CBC #### [address] Estimated GFR 43.603 mL/Min Normal [facility] Comment on above: Performed By: #### B MP, CBC #### [place] [address] [place] Glucose [Mass/Vol] 123 mg/dL High 70-100 [facility] Comment on above: Result Comment: [place] Glucose Reference Range is dependent on time and content of last meal. Glucose of more than 200 mg/dL in a nonstressed, ambulatory subject supports the diagnosis of Diabetes Mellitus. ADA recommended reference range Performed By: #### B MP, CBC #### [facility] [address] Potassium [Moles/Vol] 5.7 mmol/L High 3.5-5.1 [facility] Comment on above: Performed By: #### B MP, CBC #### [facility] [address] [place] [address] [place] Sodium [Moles/Vol] 143 mmol/L Normal 136-145 [facility] Comment on above: Performed By: #### B MP, CBC #### [facility] [address] [place] [address] [facility] Urea nitrogen [Mass/Vol] 46 mg/dL High 7-25 [facility] Comment on above: Performed By: #### B MP, CBC #### [facility] [address] Basic metabolic 1998 panelon 06-24-2024 Anion gap [Moles/Vol] 12.8 mmol/L 6.0 - 15.0 meq/L [facility] Calcium [Mass/Vol] 9.5 mg/dL 8.6 - 10. 3 mg/dL [facility] Chloride [Moles/Vol] 110 mmol/L High 98 - 10 7 mmol/L [facility] CO2 [Moles/Vol] 25.9 mmol/L 21.0 - 31.0 mmol/L [facility] Creatinine (U) [Mass/Vol] 1.23 mg/dL High 0.60 - 1.20 mg/dL [facility] GFR/1.73 sq M.predicted MDRD (S/P/Bld) [Vol rate/Area] 43.603 mL/min/{1.73_m2} mL/Min [facility] Glucose [Mass/Vol] 123 mg/dL High 70 - 100 mg/dL [facility] Comment on above: Random Glucose Refer ence Range is dependent on time and content of last meal. Glucose of more than 200 mg/dL in a nonstressed, ambulatory subject supports the diagnosis of Diabetes Mellitus. ADA recommended reference range Interpretation and review of laboratory results Abnormal [facility] Potassium [Moles/Vol] 5.7 mmol/L High 3.5 - 5.1 mmol/L [facility] Sodium [Moles/Vol] 143 mmol/L 136 - 145 mmol/L [facility] Urea nitrogen [Mass/Vol] 46 mg/dL High 7 - 25 mg/dL [facility] Basophils Auto (Bld) [#/Vol] Ordered By: Korey Valencia on 06-24-2024 Basophils (Bld) [#/Vol] Automated basoph il count 0.0-0.2 [facility] Basophils/100 WBC Auto (Bld) Ordered By: Korey Valencia on 06-24-2024 Basophils/100 WBC (Bld) Automated basophil % . [facility] CBC W Auto Differential pane l (Bld)on 06-24-2024 Basophils (Bld) [#/Vol] 0 10*3/uL 0.0 - 0.2 10*3/uL [facility] Basophils/100 WBC Manual cnt (Syn fld) 0.4 % . [facility] Eosinophils (Bld) [#/Vol] 0.2 10*3/uL 0.0 - 0.45 10*3/uL [facility] Eosinophils/100 WBC Manual cnt (Syn fld) 2.3 % . [facility] Erythrocyte distribution width (RBC) [Ratio] 13.3 % 11.9 - 15.3 % [facility] Hematocrit (Bld) [Volume fraction] 34.9 % 34.0 - 46.4 % [facility] Hemoglobin (Bld) [Mass/Vol] 11.9 g/dL 11.8 - 15.4 g/dL [facility] Lymphocytes (Bld) [#/Vol] 2.3 10*3/uL 1.00 - 4.8 10*3/uL [facility] Lymphocytes/100 WBC Manual cnt (Syn fld) 30.5 % . [facility] MCH (RBC) [Entitic mass] 31.1 pg 24.7 - 34.3 pg [facility] MCHC (RBC) [Mass/Vol] 34 g/dL 32.0 - 35.0 g/dL [facility] MCV (RBC) [Entitic vol] 91.4 fL 80 - 100 fL [facility] Monocytes (Bld) [#/Vol] 0.4 10*3/uL 0.0 - 0.8 10*3/[facility]L [facility]ocytes+Macrophages[facility]1 00 WBC Manual cnt (Syn fld) 5.6 % . [facility] Neutrophils (Bld) [#/Vol] 4.5 10*3/uL 1.8 - 7.7 10*3/uL [facility] Neutrophils/100 WBC Manual cnt (Syn fld) 61.2 % . [facility] NRBC 0.1 /100{WBC} 0 - 0.5 /100{WBC} [facility] Platelet mean volume (Bld) [Entitic vol] 8.8 fL 6.3 - 10.7 fL [facility] Platelets (Bld) [#/Vol] 178 10*3/uL 150 - 450 10*3/uL [facility] RBC LM.HPF (Urine sed) [#/Area] 3.82 10*6/uL 3.60 - 5.00 10*6/uL [facility] WBC (Bld) [#/Vol] 7.4 10*3/uL 3.8 - 11.6 10*3/uL [facility] WBC LM.HPF (Urine sed) [#/Area] 7.4 10*3/uL 3.8 - 11.6 10*3/uL [facility] Calcium [Mass/volume] in Ser um or PlasmaOrdered By: Korey Valencia on 06-24-2024 Calcium [Mass/Vol] Calcium [Mass/volume ] in Serum or Plasma 8.6-10.3 [facility] Carbon dioxide, total [Moles /volume] in Serum or PlasmaOrdered By: Korey Valencia on 06-24-2024 CO2 [Moles/Vol] Carbon dioxide, tota l [Moles/volume] in Serum or Plasma 21.0-31.0 [facility] Chloride [Moles/volume] in S oswaldo or PlasmaOrdered By: Korey Valencia on 06-24-2024 Chloride [Moles/Vol] Chloride [Moles/volume] in Serum or Plasma High 98-107 [facility] Complete Blood Count Auto Di ffon 06-24-2024 Basophils (Bld) [#/Vol] 0.0 10*3/uL Normal 0.0-0.2 [facility] Comment on above: Result Comment: PERF ORMED BY: [place] [address] PATHOLOGIST MANAGER TALENT MANAGEMENT MIGUELITO JAIMES M.D. Performed By: #### B MP, CBC #### [address] Basophils/100 WBC (Bld) 0.4 % Normal . [facility] Comment on above: Performed By: #### B MP, CBC #### [address] Eosinophils (Bld) [#/Vol] 0.2 10*3/uL Normal 0.0-0.45 [facility] Comment on above: Performed By: #### B MP, CBC #### [address] Eosinophils/100 WBC (Bld) 2.3 % Normal . [facility] Comment on above: Performed By: #### B MP, CBC #### [address] Erythrocyte distribution width (RBC) [Ratio] 13.3 % Normal 11.9-15.3 [facility] Comment on above: Performed By: #### B MP, CBC #### [address] Hematocrit (Bld) [Volume fraction] 34.9 % Normal 34.0-46.4 [facility] Comment on above: Performed By: #### B MP, CBC #### [address] Hemoglobin (Bld) [Mass/Vol] 11.9 g/dL Normal 11.8-15.4 [facility] Comment on above: Performed By: #### B MP, CBC #### [place] [address] [place] Lymphocytes (Bld) [#/Vol] 2.3 10*3/uL Normal 1.00-4.8 [facility] Comment on above: Performed By: #### B MP, CBC #### [address] Lymphocytes/100 WBC (Bld) 30.5 % Normal . [facility] Comment on above: Performed By: #### B MP, CBC #### [address] MCH (RBC) [Entitic mass] 31.1 pg Normal 24.7-34.3 [facility] Comment on above: Performed By: #### B MP, CBC #### [address] [address] MCV (RBC) [Entitic vol] 91.4 fL Normal 80-100 [facility] Comment on above: Performed By: #### B MP, CBC #### [address] Mean Corpuscular HGB Conc 34.0 g/dL Normal 32.0-35.0 [facility] Comment on above: Performed By: #### B MP, CBC #### [place] [address] [place] Monocytes (Bld) [#/Vol] 0.4 10*3/uL Normal 0.0-0.8 [facility] Comment on above: Performed By: #### B MP, CBC #### [address] Monocytes/100 WBC (Bld) 5.6 % Normal . [facility] Comment on above: Performed By: #### B MP, CBC #### [place] [address] [place] Neutrophils (Bld) [#/Vol] 4.5 10*3/uL Normal 1.8-7.7 [facility] Comment on above: Performed By: #### B MP, CBC #### [address] Neutrophils/100 WBC (Bld) 61.2 % Normal . [facility] Comment on above: Performed By: #### B MP, CBC #### [facility] [address] [place] [address] [place] NRBC% 0.1 /100{WBC} Normal 0-0.5 [facility] Comment on above: Performed By: #### B MP, CBC #### [facility] [address] Platelet mean volume (Bld) [Entitic vol] 8.8 fL Normal 6.3-10.7 The [facility] Comment on above: Performed By: #### B MP, CBC #### [facility] [address] [place] [address] [place] Platelets (Bld) [#/Vol] 178 10*3/uL Normal 150-450 [facility] Comment on above: Performed By: #### B MP, CBC #### [facility] [address] [place] [address] [place] RBC (Bld) [#/Vol] 3.82 10*6/uL Normal 3.60-5.00 The [facility] Comment on above: Performed By: #### B MP, CBC #### [facility] [address] [place] [address] [place] WBC (Bld) [#/Vol] 7.4 10*3/uL Normal 3.8-11.6 The [facility] Comment on above: Performed By: #### B MP, CBC #### [place] [address] [place] Creatinine [Mass/volume] in Serum or PlasmaOrdered By: Korey Valencia on 06-24-2024 Creatinine [Mass/Vol] Creatinine [Mass/volume] in Serum or Plasma High 0.60-1.20 [facility] ECG 12 lead ECGon 06-24-2024 ECG 12 lead ECG [facility] [place] [address] Electrocardiograph Report Signed Patient: Willie Espinosa MR#: [id number] 6 : 1940 Acct:[id number] Age/Sex: 84 / F ADM Date: 06/24/24 Loc: PS Room: Type: [facility] Attending Dr: Korey Valencia DO Ordering Provider: Korey Valencia DO Date of Service: 06/24/2407/17/955 ECG/ECG 12 lead ECG: surgery 06/27 Copies to: Test Reason : Blood Pressure : */* mmHG Vent. Rate : 61 BPM Atrial Rate : 61 BPM P-R Int : 282 ms QRS Dur : 86 ms QT Int : 390 ms P-R-T Axes : 27 -26 59 degrees QTcB Int : 392 ms Sinus rhythm with 1st degree AV block Otherwise normal ECG Confirmed by Jaylene Betancourt ([id number]) on 06/24/2024 6:34:53 PM Referred By: Electronically Signed By: Jaylene Betancourt Transcribed By: MUS Signed By Jaylene Betancourt MD 5 1834 Normal [facility] Eosinophils Auto (Bld) [#/Vo l]Ordered By: Korey Valencia on 06-24-2024 Eosinophils (Bld) [#/Vol] Automated eosinophil count 0.0-0.45 [facility] Eosinophils/100 WBC Auto (Bl d)Ordered By: Korey Valencia on 06-24-2024 Eosinophils/100 WBC (Bld) Automated eosinophil % . [facility] Erythrocyte distribution wid th Auto (RBC) [Ratio]Ordered By: Korey Valencia on 06-24-2024 Erythrocyte distribution width (RBC) [Ratio] Erythrocyte distribution width [Ratio] by Automated count 11.9-15.3 [facility] Glucose [Mass/volume] in Ser um or PlasmaOrdered By: Korey Valencia on 06-24-2024 Glucose [Mass/Vol] Glucose [Mass/volume ] in Serum or Plasma High 70-100 [facility] Comment on above: ADA recommended refe rence rangeRandom Glucose Reference Range is dependent on time and content of last meal. Glucose of more than 200 mg/dL in a nonstressed, ambulatory subject supports the diagnosis of Diabetes Mellitus. Hematocrit Auto (Bld) [Volum e fraction]Ordered By: Korey Valencia on 06-24-2024 Hematocrit (Bld) [Volume fraction] Hematocrit [Volume Fraction] of Blood by Automated count 34.0-46.4 [facility] Hemoglobin [Mass/volume] in BloodOrdered By: Korey Valencia on 06-24-2024 Hemoglobin (Bld) [Mass/Vol] Hemoglobin [Mass/volume] in Blood 11.8-15.4 [facility] Leukocytes [#/volume] correc osmany for nucleated erythrocytes in Blood by Automated counOrdered By: Korey Valencia on 06-24-2024 WBC corrected for nucl RBC Auto (Bld) [#/Vol] Leukocytes [#/volume] corrected for nucleated erythrocytes in Blood by Automated coun 3.8-11.6 [facility] Lymphocytes Auto (Bld) [#/Vo l]Ordered By: Korey Valencia on 06-24-2024 Lymphocytes (Bld) [#/Vol] Lymphocytes [#/volume] in Blood by Automated count 1.00-4.8 [facility] Lymphocytes/100 WBC Auto (Bl d)Ordered By: Korey Valencia on 06-24-2024 Lymphocytes/100 WBC (Bld) Lymphocytes/100 leukocytes in Blood by Automated count . [facility] MCH Auto (RBC) [Entitic mass ]Ordered By: Korey Valencia on 06-24-2024 MCH (RBC) [Entitic mass] MCH [Entitic mass] by Automated count 24.7-34.3 [facility] MCHC Auto (RBC) [Mass/Vol]Or dered By: Korey Valencia on 06-24-2024 MCHC (RBC) [Mass/Vol] MCHC [Mass/volume] by Automated count 32.0-35.0 [facility] MCV Auto (RBC) [Entitic vol] Ordered By: Korey Valencia on 06-24-2024 MCV (RBC) [Entitic vol] MCV [Entitic vol ume] by Automated count 80-100 [facility] Monocytes Auto (Bld) [#/Vol] Ordered By: Korey Valencia on 06-24-2024 Monocytes (Bld) [#/Vol] Automated blood monocyte count 0.0-0.8 [facility] Monocytes/100 WBC Auto (Bld) Ordered By: Korey Valencia on 06-24-2024 Monocytes/100 WBC (Bld) Automated monocyte % . [facility] Neutrophils Auto (Bld) [#/Vo l]Ordered By: Korey Valencia on 06-24-2024 Neutrophils (Bld) [#/Vol] Neutrophils [#/volume] in Blood by Automated count 1.8-7.7 [facility] Neutrophils/100 WBC Auto (Bl d)Ordered By: Korey Valencia on 06-24-2024 Neutrophils/100 WBC (Bld) Automated neutrophil % . [facility] No Panel InformationOrdered By: Korey Valencia on 06-24-2024 Estimated GFR (CKD-EPI) 43.603 mL/Min [facility] Creatinine Clearance (Chem N/A [facility] Nucleated erythrocytes [Pres ence] in Blood by Automated countOrdered By: Korey Valencia on 06-24-2024 Nucleated RBC Auto Ql (Bld) Nucleated erythrocytes [Presence] in Blood by Automated count 0-0.5 [facility] Platelet mean volume Auto (B ld) [Entitic vol]Ordered By: Korey Valencia on 06-24-2024 Platelet mean volume (Bld) [Entitic vol] Platelet mean volume [Entitic volume] in Blood by Automated count 6.3-10.7 [facility] Platelets Auto (Bld) [#/Vol] Ordered By: Korey Valencia on 06-24-2024 Platelets (Bld) [#/Vol] Platelets [#/vol ume] in Blood by Automated count 150-450 [facility] Potassium [Moles/volume] in Serum or PlasmaOrdered By: Korey Valencia on 06-24-2024 Potassium [Moles/Vol] Potassium [Moles/volume] in Serum or Plasma High 3.5-5.1 [facility] RBC Auto (Bld) [#/Vol]Ordere d By: Korey Valencia on 06-24-2024 RBC (Bld) [#/Vol] Erythrocytes [#/volume] in Blood by Automated count 3.60-5.00 [facility] Serum or plasma anion gap de terminationOrdered By: Korey Valencia on 06-24-2024 Anion gap [Moles/Vol] Serum or plasma an ion gap determination 6.0-15.0 [facility] Sodium [Moles/volume] in Ser um or PlasmaOrdered By: Korey Valencia on 06-24-2024 Sodium [Moles/Vol] Sodium [Moles/volume ] in Serum or Plasma 136-145 [facility] Urea nitrogen [Mass/volume] in Serum or PlasmaOrdered By: Korey Valencia on 06-24-2024 Urea nitrogen [Mass/Vol] Urea nitrogen [Mass/volume] in Serum or Plasma High 7-25 [facility] WBC Auto (Bld) [#/Vol]Ordere d By: Korey Valencia on 06-24-2024 WBC (Bld) [#/Vol] Leukocytes [#/volume ] in Blood by Automated count 3.8-11.6 [facility] No Panel Informationon 06-20 Consent obtained: written (The rationale for Mohs as well as the risks, benefits, and alternatives. The risks of infection, scarring, bleeding, prolonged wound healing, incomplete removal, allergy to anesthesia or meds, nerve injury, and recurrence were addressed.) [place] Protocol: Procedure explained and questions answered to patient or proxy's satisfaction: Yes Test results available and properly labeled: Yes Pathology report reviewed: Yes Photo or diagram used for site identification: Yes Site/side marked: Yes Anticoagulation: Is the patient taking prescription anticoagulant and/or aspirin prescribed/recommende d by a physician? No Anesthesia: Anesthesia method: local infiltration Local anesthetic: lidocaine 1% WITH epi and sodium bicarbonate Procedure Details: Biopsy accession number: [id number] Biopsy lab: [facility] Date of biopsy: 02/29/2024 Frozen section biopsy performed: Yes Specimen debulked: No Pre-Op diagnosis: basal cell carcinoma BCC subtype: nodular MohsAIQ Surgical site (if tumor spans multiple areas, please select predominant area): nose Surgery side: left Surgical site (from skin exam): Left nose Pre-operative length (cm): 0.5 Pre-operative width (cm): 0.5 Indications for Mohs surgery: anatomic location where tissue conservation is critical Other indications for Mohs surgery: Central face Previously treated? No Mohs Appropriate Use Criteria Score: 7 Details of micrographic surgery: Mohs accession number: [id number] Micrographic Surgery Details: Post-operative length (cm): 1.3 Post-operative width (cm): 1 Number of Mohs stages: 3 Stage 1 Comments: The area was prepped with Betadine, draped in a sterile fashion, and infiltrated with local anesthetic. Sterile technique was used throughout the procedure. The marked area of clinical tumor with a small rim of clinically normal surrounding skin was removed using Mohs technique with beveled edges. Hash campos were placed for orientation of the specimen. Hemostasis was achieved with electrodessication. After hemostasis, the defect was measured and recorded, a temporary sterile dressing was placed over the wound. The specimen was oriented, mapped, and if necessary, divided into sections. A Mohs map was prepared. The specimen was placed in a labeled precious dish and was taken to the Mohs lab where it was chromacoded and processed. Mohs sections were prepared with serial tissue sections, stained, and evaluated by Dr. Llamas for interpretation of deep and peripheral margins. The Mohs map was marked accordingly. Amount of lidocaine used: 0.7 cc Estimated blood loss: minimal Defect size: 1.2 x 0.9 cm Number of blocks per stage: 1 Number of positive blocks: 1 Tumor features identified on Mohs section: basal carcinoma Tumor features identified on Mohs section comment: nodular pattern Depth of defect after stage: dermis Stage 2 Comments: The dressing was removed, the tumor area was re-prepped and draped, and anesthesia was assessed and augmented as necessary. A layer of tissue around the positive margin(s) was removed, and the tissue was oriented, mapped, and processed in an identical fashion as for Stage 1. Hemostasis was achieved and dressing placed as in Stage 1. As with Stage 1, Mohs sections were prepared with serial tissue sections, stained, and evaluated by Dr. Llamas for interpretation of deep and peripheral margins. The Mohs map was updated. Assistants: Jacob Figueredo LPN Amount of lidocaine used: 0.9 cc Estimated blood loss: minimal Defect size: 1.3 x 1.0 cm Number of blocks: 1 Number of positive blocks: 1 Tumor features identified on Mohs section: basal carcinoma Tumor features identified on Mohs section comment: nodular pattern Depth of defect after stage comment: deep dermis Stage 3 Comments: The dressing was removed, the tumor area was re-prepped and draped, and anesthesia was assessed and augmented as necessary. A layer of tissue around the positive margin(s) was removed, and the tissue was oriented, mapped, and processed in an identical fashion as for Stage 1. Hemostasis was achieved and dressing placed as in Stage 1. As with Stage 1, Mohs sections were prepared with serial tissue sections, stained, and evaluated by Dr. Llamas for interpretation of deep and peripheral margins. The Mohs map was updated. Assistants: Jacob Figueredo LPN Amount of lidocaine used: 3.0 cc Estimated blood loss: < 1.0 cc Defect size: 1.3 x 1.0 cm Number of blocks: 1 Number of positive blocks: 0. Tumor free margins were obtained and the Mohs procedure was considered complete. Tumor features identified on Mohs section: no tumor identified Depth of defect after stage comment: deep dermis Patient tolerance of procedure: tolerated well, no immediate complications Reconstruction: Was the defect reconstructed? Yes (more content not included)... [facility] - Hematology and Cell countson 05-16-2024 HbA1c (Bld) [Mass fraction] 7.7 % [facility] No Panel Informationon 05-16 Interpretation and review of laboratory results Abnormal [facility] No Panel Informationon 02-28 [facility] Type of biopsy: tangential Informed consent: discussed and consent obtained Informed consent comment: The risks and benefits of the biopsy were discussed. Risks include but are not limited to bleeding, infection, scarring, pain, and nerve damage. An opportunity to ask questions prior to the procedure was permitted and all questions were answered. Patient was prepped and draped in usual sterile fashion: area cleansed with alcohol. Anesthesia: the lesion was anesthetized in a standard fashion Anesthetic: 1% lidocaine w/ epinephrine 1-100,000 buffered w/ 8.4% NaHCO3 Instrument used: DermaBlade Hemostasis achieved with: electrodesiccation Outcome: patient tolerated procedure well Outcome comment: The specimen was placed in a prelabeled formalin container to be sent for pathology Post-procedure details: sterile dressing applied and wound care instructions given Post-procedure details comment: Emphasized need to contact clinic for any signs of infection, uncontrollable bleeding, or complications. Dressing type: bandage Additional details: Photo taken Amount of lidocaine used: 0.5 cc [facility] Laboratory - Hematology and Cell countson 02-06-2024 HbA1c (Bld) [Mass fraction] 7.6 % [facility] No Panel Informationon 02-05 Interpretation and review of laboratory results Abnormal [facility] XR Abdomen 2 Viewson 023 XR Abdomen [...] by Hilton Talbot on 08/22/2022 1642 Normal [facility] [employer] NM STRESS/REST MULTIon 03-02 NM STRESS/REST MULTI Patient: SHON ESPINOSA Exam Date: 03/02/2022 : 1940 Gender:F Ordering : DR BAUTISTA THAYER M.D. Admission #: [id number] Family : Order #: [id number] CLICK HERE TO VIEW EXAM RADIOLOGY REPORT [...] Trujillo MD on 03/02/2022 at 13:16 Normal [facility] Vital Signs Date Time Vital Sign Value Performing Clinician Gutierrez ballard 11-21-2024 11:02-0400 Diastolic blood pressure 60 mm[Hg] Nagi Murry MD Work Phone: [facility] 11-21-2024 11:02-0400 Systolic blood pressure 120 mm[Hg] Nagi Murry MD Work Phone: [facility] 11-21-2024 10:51-0400 Body height 144.8 cm Nagi Murry MD Work Phone: [facility] 11-21-2024 10:51-0400 Body mass index (BMI) [Ratio] 39.38 kg/m2 Nagi Murry MD Work Phone: [facility] 11-21-2024 10:51-0400 Body weight 82.56 kg Nagi Murry MD Work Phone: [facility] 11-21-2024 10:51-0400 Heart rate 70 /min Nagi Murry MD Work Phone: [facility] 11-11-2024 11:19-0400 Body height 149.9 cm Bautista Thayer MD Work Phone: [facility] 11-11-2024 11:19-0400 Body mass index (BMI) [Ratio] 35.95 kg/m2 Bautista Thayer MD Work Phone: [facility] 11-11-2024 11:19-0400 Body weight 80.74 kg Bautista Thayer MD Work Phone: [facility] 11-11-2024 11:19-0400 Diastolic blood pressure 78 mm[Hg] Bautista Thayer MD Work Phone: [facility] 11-11-2024 11:19-0400 Heart rate 66 /min Bautista Thayer MD Work Phone: [facility] 11-11-2024 11:19-0400 SaO2% (BldA) [Mass fraction] 95 % Bautista Thayer MD Work Phone: [facility] 11-11-2024 11:19-0400 Systolic blood pressure 138 mm[Hg] Bautista Thayer MD Work Phone: [facility] 08-12-2024 10:45-0400 Body height 149.9 cm Bautista Thayer MD Work Phone: [facility] 08-12-2024 10:45-0400 Body mass index (BMI) [Ratio] 36.96 kg/m2 Bautista Thayer MD Work Phone: [facility] 08-12-2024 10:45-0400 Body weight 83.01 kg Bautista Thayer MD Work Phone: [facility] 08-12-2024 10:45-0400 Diastolic blood pressure 68 mm[Hg] Bautista Thayer MD Work Phone: [facility] 08-12-2024 10:45-0400 Heart rate 63 /min Bautista Thayer MD Work Phone: [facility] 08-12-2024 10:45-0400 SaO2% (BldA) [Mass fraction] 98 % Bautista Thayer MD Work Phone: [facility] 08-12-2024 10:45-0400 Systolic blood pressure 130 mm[Hg] Bautista Thayer MD Work Phone: [facility] 08-02-2024 14:53-0400 Body height 149.9 cm Korey Valencia DO Work Phone: [facility] 08-02-2024 14:53-0400 Body mass index (BMI) [Ratio] 35.35 kg/m2 Korey Valencia DO Work Phone: [facility] 08-02-2024 14:53-0400 Body weight 79.38 kg Korey Valencia DO Work Phone: [facility] 07-03-2024 14:20-0400 Body height 149.9 cm Eriberto Hdez DO Work Phone: [facility] 07-03-2024 14:20-0400 Body mass index (BMI) [Ratio] 35.55 kg/m2 Eriberto Hdez DO Work Phone: [facility] 07-03-2024 14:20-0400 Body weight 79.83 kg Eriberto Hdez DO Work Phone: [facility] 06-27-2024 19:11-0500 Diastolic blood pressure 57 mm[Hg] Bautista Thayer MD Work Phone: [facility] 06-27-2024 19:11-0500 Heart rate 65 /min Bautista Thayer MD Work Phone: [facility] 06-27-2024 19:11-0500 Respiratory rate 16 /min Bautista Thayer MD Work Phone: [facility] 06-27-2024 19:11-0500 SaO2% (BldA) [Mass fraction] 97 % Bautista Thayer MD Work Phone: [facility] 06-27-2024 19:11-0500 Systolic blood pressure 125 mm[Hg] Bautista Thayer MD Work Phone: [facility] 06-27-2024 18:11-0500 Body temperature 97.4 [degF] Bautista Thayer MD Work Phone: [facility] 06-27-2024 15:00-0500 Body height 147.32 cm Bautista Thayer MD Work Phone: [facility] 06-27-2024 15:00-0500 Body weight 82 kg Bautista Thayer MD Work Phone: [facility] 06-21-2024 10:14-0500 Body height 149.9 cm Korey Valencia DO Work Phone: [facility] 02-28-2025 10:14-0500 Body mass index (BMI) [Ratio] 35.75 kg/m2 Korey Valencia DO Work Phone: [facility] 06-21-2024 10:14-0500 Body weight 80.29 kg Korey Valencia DO Work Phone: [facility] 06-20-2024 15:11-0500 Diastolic blood pressure 82 mm[Hg] Vernell Llamas MD Work Phone: [facility] 06-20-2024 15:11-0500 Systolic blood pressure 142 mm[Hg] Vernell Llamas MD Work Phone: [facility] 05-16-2024 13:50-0500 Body height 149.9 cm Bautista Thayer MD Work Phone: [facility] 05-16-2024 13:50-0500 Body mass index (BMI) [Ratio] 35.75 kg/m2 Bautista Thayer MD Work Phone: [facility] 05-16-2024 13:50-0500 Body weight 80.29 kg Bautista Thayer MD Work Phone: [facility] 05-16-2024 13:50-0500 Diastolic blood pressure 78 mm[Hg] Bautista Thayer MD Work Phone: [facility] 05-16-2024 13:50-0500 Heart rate 72 /min Bautista Thayer MD Work Phone: [facility] 05-16-2024 13:50-0500 SaO2% (BldA) [Mass fraction] 97 % Bautista Thayer MD Work Phone: [facility] 05-16-2024 13:50-0500 Systolic blood pressure 128 mm[Hg] Bautista Thayer MD Work Phone: [facility] 04-09-2024 16:00-0500 Body height 149.9 cm Bautista Thayer MD Work Phone: [facility] 04-09-2024 16:00-0500 Body mass index (BMI) [Ratio] 35.75 kg/m2 Bautista Thayer MD Work Phone: [facility] 04-09-2024 16:00-0500 Body weight 80.29 kg Bautista Thayer MD Work Phone: [facility] 04-09-2024 16:00-0500 Diastolic blood pressure 68 mm[Hg] Bautista Thayer MD Work Phone: [facility] 04-09-2024 16:00-0500 Heart rate 78 /min Bautista Thayer MD Work Phone: [facility] 04-09-2024 16:00-0500 SaO2% (BldA) [Mass fraction] 96 % Bautista Thayer MD Work Phone: [facility] 04-09-2024 16:00-0500 Systolic blood pressure 124 mm[Hg] Bautista Thayer MD Work Phone: [facility] 02-06-2024 10:56-0400 Body height 149.9 cm Bautista Thayer MD Work Phone: [facility] 02-06-2024 10:56-0400 Body mass index (BMI) [Ratio] 34.74 kg/m2 Bautista Thayer MD Work Phone: [facility] 02-06-2024 10:56-0400 Body weight 78.02 kg Bautista Thayer MD Work Phone: [facility] 02-06-2024 10:56-0400 Diastolic blood pressure 64 mm[Hg] Bautista Thayer MD Work Phone: [facility] 02-06-2024 10:56-0400 Heart rate 65 /min Bautista Thayer MD Work Phone: [facility] 02-06-2024 10:56-0400 SaO2% (BldA) [Mass fraction] 96 % Bautista Thayer MD Work Phone: [facility] 02-06-2024 10:56-0400 Systolic blood pressure 112 mm[Hg] Bautista Thayer MD Work Phone: [facility] 06-08-2023 11:20-0500 Body mass index (BMI) [Ratio] 36.07 kg/m2 Delores Hemmer PA Work Phone: [facility] 06-08-2023 11:20-0500 Body weight 78.29 kg Delores Hemmer PA Work Phone: [facility] 06-08-2023 11:20-0500 Diastolic blood pressure 72 mm[Hg] Delores Hemmer PA Work Phone: [facility] 06-08-2023 11:20-0500 Heart rate 64 /min Delores Hemmer PA Work Phone: [facility] 06-08-2023 11:20-0500 Respiratory rate 18 /min Delores Hemmer PA Work Phone: [facility] 06-08-2023 11:20-0500 SaO2% (BldA) [Mass fraction] 97 % Delores Hemmer PA Work Phone: [facility] 06-08-2023 11:20-0500 Systolic blood pressure 132 mm[Hg] Delores Hemmer PA Work Phone: [facility] Healthcare Encounters Encounter Date Encounter Type Care Provider Facility Start: 11-21-2024 End: 11-21-2024 ambulatory [facility] Ambulatory Start: 11-21-2024 End: 11-21-2024 Office outpatient new 60 minutes Nagi Murry MD Work Phone: [facility] Comment on above: Encounter to [facility]; Other chest pain; Near syncope; Dizziness and giddiness; Essential (primary) hypertension; History of lung cancer; History of colon cancer; Type 2 diabetes mellitus with stage 3 chronic kidney disease, with long-term current use of insulin, unspecified whether stage 3a or 3b CKD (Multi); Localized edema; LVH (left ventricular hypertrophy); Biatrial enlargement; Diastolic dysfunction; Chronic fatigue; Blurry vision; Orthopnea; Acute diastolic heart failure; Mitral valve insufficiency, unspecified etiology; Type 2 diabetes mellitus with diabetic neuropathy, with long-term current use of insulin; Tricuspid valve insufficiency, unspecified etiology; Hypothyroidism, unspecified type; Uncomplicated asthma, unspecified asthma severity, unspecified whether persistent ([facility]-H[facility]); Never smoked tobacco; Obesity (BMI 30-39.9); History of fall Start: 11-11-2024 End: 11-11-2024 ambulatory RUGSHERMAN THAYER Not Available Start: 11-11-2024 End: 11-11-2024 Office outpatient visit 25 minutes Bautista Thayer MD Work Phone: [facility] Comment on above: Other chest pain (Pr imary Dx); Asthma, unspecified asthma severity, unspecified whether complicated, unspecified whether persistent (HCC); Uncontrolled type 2 diabetes mellitus with hypoglycemia, unspecified hypoglycemia coma status (HCC) Start: 10-18-2024 End: 10-18-2024 Refill Bautisat Thayer MD Work Phone: [facility] Comment on above: Essential hypertensi on Start: 09-05-2024 End: 09-05-2024 Refill Bautista Thayer MD Work Phone: [facility] Comment on above: Uncontrolled type 2 diabetes mellitus with hypoglycemia, unspecified hypoglycemia coma status (CMS/HCC) Start: 08-12-2024 End: 08-12-2024 ambulatory BAUTISTA Anamaria JEOVANY Not Available Start: 08-12-2024 End: 08-12-2024 Office outpatient visit 25 minutes Bautista Thayer MD Work Phone: [facility] Comment on above: Basal cell carcinoma (BCC) of left side of nose (Primary Dx); Uncontrolled type 2 diabetes mellitus with hypoglycemia, unspecified hypoglycemia coma status (CMS/HCC); 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, unspecified laterality (CMS/HCC); Type 2 diabetes mellitus with diabetic chronic kidney disease (CMS/HCC); Chronic kidney disease, stage 3b (HCC) (CMS/HCC); Uncontrolled type 2 diabetes mellitus with hypoglycemia without coma (CMS/HCC); Acquired hypothyroidism (CMS/HCC) Start: 08-02-2024 End: 08-02-2024 ambulatory OKREY VALENCIA Not Available Start: 08-02-2024 End: 08-02-2024 Postop follow up visit related to original px Korey Valencia DO Work Phone: [facility] [place] Comment on above: Mohs defect of nose (Primary Dx); Basal cell carcinoma (BCC) of skin of nose Start: 08-02-2024 End: 08-02-2024 Bamboo flowsheet Korey Valencia DO Work Phone: [facility] [place] Start: 08-02-2024 End: 08-02-2024 Bamboo flowsheet Korey Valencia DO Work Phone: [facility] [place] Start: 07-03-2024 End: 07-03-2024 ambulatory ERIBERTO Edwards PINASTEFFANY Not Available Start: 07-03-2024 End: 07-03-2024 Postop follow up visit related to original px Eriberto Edwards Kevinbessy DO Work Phone: [facility] [place] Comment on above: Mohs defect of nose (Primary Dx) Start: 06-27-2024 End: 06-27-2024 Admission to same day surgery center Bautista Thayer MD Work Phone: [facility] [place] Start: 06-27-2024 End: 06-27-2024 ambulatory Bautista Thayer MD Work Phone: [facility] Work Phone: Start: 06-24-2024 End: 06-24-2024 External Result Encounter Korey Valencia DO Work Phone: [facility] Unsolicited Start: 06-24-2024 End: 06-24-2024 External Result Encounter Korey Valencia DO Work Phone: [facility] Unsolicited Start: 06-24-2024 End: 06-24-2024 Patient encounter procedure Bautista hTayer MD Work Phone: [facility] Work Phone: Start: 06-24-2024 End: 06-24-2024 ambulatory Bautista Thayer MD Work Phone: [facility] Work Phone: Start: 06-24-2024 Encounter for preprocedural laboratory examination Korey Valencia [facility] Start: 06-21-2024 End: 06-21-2024 Office outpatient new 45 minutes Korey Valencia DO Work Phone: [facility] [place] Comment on above: Mohs defect of nose (Primary Dx) Start: 06-21-2024 End: 06-21-2024 ambulatory KOREY VALENCIA Not Available Start: 06-20-2024 End: 06-20-2024 Patient encounter procedure Vernell Llamas MD Work Phone: [facility] Comment on above: Basal cell carcinoma (BCC) of skin of nose Start: 06-20-2024 End: 06-20-2024 ambulatory VERNELL LLAMAS Not Available Start: 05-16-2024 End: 05-16-2024 Bamboo flowsheet Bautista Thayer MD Work Phone: [facility] Start: 05-16-2024 End: 05-16-2024 Bamboo flowsheet Bautista Thayer MD Work Phone: [facility] Start: 05-16-2024 End: 05-16-2024 ambulatory BAUTISTA THAYER Not Available Start: 05-16-2024 End: 05-16-2024 Assay of hemosiderin, quant Bautista Thayer MD Work Phone: [facility] Start: 05-16-2024 End: 05-16-2024 Patient encounter procedure Bautista Thayer MD Work Phone: [facility] Comment on above: Routine general medi abad examination at health care facility (Primary Dx); Uncontrolled type 2 diabetes mellitus with hypoglycemia, unspecified hypoglycemia coma status (CMS/HCC); Vitamin D deficiency; Medicare annual wellness visit, subsequent; Essential hypertension (CMS/HCC) Start: 04-09-2024 End: 04-09-2024 Office outpatient visit 25 minutes Bautista Thayer MD Work Phone: [facility] Comment on above: Cellulitis of left u pper extremity (Primary Dx) Start: 04-09-2024 End: 04-09-2024 ambulatory BAUTISTA Anamaria JEOVANY Not Available Start: 04-04-2024 End: 04-05-2024 Refill Bautista Thayer MD Work Phone: [facility] Comment on above: Uncontrolled type 2 diabetes mellitus with hypoglycemia, unspecified hypoglycemia coma status ([facility]/HCC) Start: 02-29-2024 End: 02-29-2024 Bamboo flowsheet Mukesh Fernandez MD Work Phone: [facility] Start: 02-29-2024 End: 02-29-2024 Bamboo flowsheet Mukesh Fernandez MD Work Phone: [facility] Start: 02-29-2024 End: 02-29-2024 Office outpatient visit 25 minutes Mukesh Fernandez MD Work Phone: [facility] Comment on above: Psoriasis vulgaris ( [facility]) (Primary Dx); Seborrheic keratosis; Actinic keratosis; Seborrheic keratosis, inflamed; Neoplasm of unspecified behavior of bone, soft tissue, and skin Start: 02-29-2024 End: 02-29-2024 ambulatory MUKESH FERNANDEZ Not Available Start: 02-21-2024 End: 02-29-2024 Telephone encounter Nuris Matos PT [facility] Comment on above: PT Initial Eval (Tri ed to contact to set-up PT Eval but VM not taking messages; will try again.); fu (Contacted and offered to schedule PT eval for frequent falls at home. I noted copay and she said she wanted to contact insurance. I noted all info re: auth thru [employer]; visits set on Med Nec and $20.00 copay. She said she will contact me back.); Final FU (Contacted re: no hear back concerning scheduling PT Eval. She said she will be having dental work and come the new year she will have new insurance. She noted she'd like to hold off till the new year and she will contact if both the doctor and she feels PT is still necessary.) Start: 02-06-2024 End: 02-06-2024 ambulatory BAUTISTA Conrad JEOVANY Not Available Start: 02-06-2024 End: 02-06-2024 Office outpatient visit 25 minutes Bautista Thayer MD Work Phone: [facility] Comment on above: Fall in home, initia l encounter (Primary Dx); Uncontrolled type 2 diabetes mellitus with hypoglycemia, unspecified hypoglycemia coma status (CMS/HCC); Encounter for vaccination; History of COVID-19; 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, unspecified laterality (CMS/HCC) Start: 12-06-2023 End: 12-06-2023 ambulatory SOLITARIO ALT Not Available Start: 08-08-2023 Patient encounter procedure Bautista Thayer MD Work Phone: [facility] Start: 06-08-2023 Bamboo flowsheet Delores pa PA Work Phone: [facility] Start: 06-08-2023 Bamboo flowsheet Delores pa PA Work Phone: [facility] Start: 06-08-2023 End: 06-08-2023 Office outpatient visit 25 minutes Delores ALMANZA Work Phone: [facility] Comment on above: Type 2 diabetes mary itus with retinopathy without macular edema, with long-term current use of insulin, unspecified laterality, unspecified retinopathy severity ([facility]/HCC) (Primary Dx); Diabetic autonomic neuropathy associated with type 2 diabetes mellitus ([facility]/HCC); Left foot pain; Acute left ankle pain; Acute diffuse otitis externa of both ears Start: 06-07-2023 Chart abstracting Delores castelan PA Work Phone: [facility] Start: 03-02-2022 End: 03-03-[address] BAUTISTA THAYER Facility:H1 Procedures Date Procedure Procedure Detail Performing Clinician Start: 11-21-2024 Ecg routine ecg w/le ast 12 lds w/i&r Nagi Murry MD Work Phone: Start: 11-11-2024 Hemoglobin glycosyla osmany a1c Bautista Thayer MD Work Phone: Start: 08-12-2024 Hemoglobin glycosyla osmany a1c Bautista Thayer MD Work Phone: Start: 06-27-2024 OR Nasal Excision CA W/Skin Graft Recon (Not Applicable) Bautista Thayer MD Work Phone: Start: 06-24-2024 Basic metabolic pane l calcium total Korey Lee Madonna DO Work Phone: Start: 06-24-2024 Complete blood count with white cell differential, automated Korey Valencia DO Work Phone: Start: 06-20-2024 MOHS SURGERY Vernell mtz MD Work Phone: Start: 05-16-2024 Hemoglobin glycosyla osmany a1c Bautista Thayer MD Work Phone: Start: 02-29-2024 SKIN / NAIL BIOPSY Memo Fernandez MD Work Phone: Start: 02-29-2024 End: 02-29-2024 CRYOTHERAPY SKIN LESION Mukesh Fernandez MD Work Phone: Start: 02-06-2024 Hemoglobin glycosyla osmany a1c Bautista Thayer MD Work Phone: Plan of Treatment Date Care Activity Detail Author Start: 08-12-2025 Urine screening for protein Diabetes: Urine Protein Screening [facility] Start: 02-11-2025 Hemoglobin A1c measurement Diabetes: Hemoglobin A1C [facility] Start: 01-17-2025 Glaucoma screening Diabetes: Retinopathy Screening [facility] Start: 12-23-2024 Influenza vaccination Influenza Vaccine (#1) [facility] Start: 12-19-2024 End: 12-19-2024 Patient encounter procedure 12/19/2024 1:30 PM EDT Office Visit [facility] [address] [facility] [address] [place] [address] Nagi Murry MD [address] [facility] [address] [place], [place] [id number] [facility] Start: 12-05-2024 End: 12-05-2024 Patient encounter procedure 12/05/2024 3:30 PM EDT Office Visit [facility] [address] [place] [phone] Mukesh Fernandez MD [address] [place] [address] [facility] Start: 11-28-2024 End: 11-28-2024 Patient encounter procedure 11/28/2024 1:20 PM EDT Office Visit [facility] [address] [place] [phone] Mukesh Fernandez MD [address] [place] [address] [facility] Start: 11-25-2024 End: 11-25-2024 Professional / ancillary services management 11/25/2024 10:00 AM EDT Ancillary Procedure [facility] [address] [place] [phone] [facility] Start: 11-21-2024 End: 11-21-2025 CBC panel - Blood by Automated count CBC Lab Routine Essential (primary) hypertension Type 2 diabetes mellitus with stage 3 chronic kidney disease, with long-term current use of insulin, unspecified whether stage 3a or 3b CKD (Multi) Expected: 11/21/2024, Expires: 11/21/2025 [facility] Work Phone: Comment on above: Expected: 11/21/2024, Expires: Start: 11-21-2024 End: 11-21-2025 Comprehensive metabolic 2000 panel - Serum or Plasma Comprehensive Metabolic Panel Lab Routine Essential (primary) hypertension Type 2 diabetes mellitus with stage 3 chronic kidney disease, with long-term current use of insulin, unspecified whether stage 3a or 3b CKD (Multi) Expected: 11/21/2024, Expires: 11/21/2025 [facility] Work Phone: Comment on above: Expected: 11/21/2024, Expires: Start: 11-21-2024 End: 11-21-2026 Holter monitor study Holter Or Event [employer] [facility] Routine Near syncope Dizziness and giddiness Expected: 11/21/2024 (Approximate), Expires: 11/21/[address] [facility] Service Area Work Phone: Comment on above: Expected: 11/21/2024 (Approximate), Expi res: 11/21/2026 Start: 11-21-2024 End: 11-21-2025 Lipid 1996 panel - Serum or Plasma Lipid Panel Lab Routine Essential (primary) hypertension Type 2 diabetes mellitus with stage 3 chronic kidney disease, with long-term current use of insulin, unspecified whether stage 3a or 3b CKD (Multi) Expected: 11/21/2024, Expires: 11/21/2025 [facility] Work Phone: Comment on above: Expected: 11/21/2024, Expires: Start: 11-21-2024 End: 11-21-2025 Magnesium [Mass/volume] in Serum or Plasma Magnesium Lab Routine Dizziness and giddiness Essential (primary) hypertension Type 2 diabetes mellitus with stage 3 chronic kidney disease, with long-term current use of insulin, unspecified whether stage 3a or 3b CKD (Multi) Chronic fatigue Hypothyroidism, unspecified type Expected: 11/21/2024, Expires: 11/21/2025 [facility] Work Phone: Comment on above: Expected: 11/21/2024, Expires: Start: 11-21-2024 End: 11-21-2025 Thyrotropin [Units/volume] in Serum or Plasma Thyroid Stimulating Hormone Lab Routine Dizziness and giddiness Essential (primary) hypertension Type 2 diabetes mellitus with stage 3 chronic kidney disease, with long-term current use of insulin, unspecified whether stage 3a or 3b CKD (Multi) Chronic fatigue Hypothyroidism, unspecified type Expected: 11/21/2024, Expires: 11/21/2025 [facility] Work Phone: Comment on above: Expected: 11/21/2024, Expires: Start: 11-11-2024 Hemoglobin A1c measurement Diabetes: Hemoglobin A1C [facility] Start: 11-11-2024 End: 11-11-2024 Patient encounter procedure 11/11/2024 11:00 AM EDT Office Visit [facility] [address] [facility] [address] [place] [phone] Bautista Thayer MD [address] [facility] [address] [place] [address] [facility] Start: 08-14-2024 Hemoglobin A1c measurement Diabetes: Hemoglobin A1C [facility] Start: 08-12-2024 End: 08-12-2025 Microalbumin/Creatinine panel in random Urine Microalbumin / creatinine urine ratio Lab Routine Uncontrolled type 2 diabetes mellitus with hypoglycemia, unspecified hypoglycemia coma status ([facility]) Expected: 08/12/2024 (Approximate), Expires: 08/12/2025 [facility] Work Phone: Comment on above: Expected: 08/12/2024 (Approximate), Expi res: 08/12/2025 Start: 08-12-2024 End: 08-12-2025 TSH W/REFLEX TO FT4 TSH W/REFLEX TO FT4 Lab Routine Acquired hypothyroidism ([facility]) Expected: 08/12/2024 (Approximate), Expires: 08/12/2025 [facility] Comment on above: Expected: 08/12/2024 (Approximate), Expi res: 08/12/2025 Start: 08-12-2024 End: 08-12-2024 Patient encounter procedure 08/12/2024 10:30 AM EDT Office Visit [facility] [address] [facility] [address] [place] [phone] Bautista Thayer MD [address] [facility] [address] [place] [address] [facility] Start: 08-08-2024 Urine screening for protein Diabetes: Urine Protein Screening [facility] Start: 08-07-2024 Medicare Annual Wellness (AWV) Medicare Annual Wellness (AWV) [facility] Start: 08-02-2024 End: 08-02-2024 Patient encounter procedure 08/02/2024 2:45 PM EDT Office Visit [facility] [place] [address] [place] [address] Korey Valencia, DO [address] [place] [address] [facility] [place] Start: 07-23-2024 Urine screening for protein Diabetes: Urine Protein Screening [facility] Start: 07-03-2024 End: 07-03-2024 Patient encounter procedure 07/03/2024 2:15 PM EDT Office Visit [facility] [place] [address] [place] [address] Eriberto Hdez, DO [address] [place] [address] [facility] [place] Start: 06-27-2024 [facility] Start: 06-27-2024 [facility] Start: 06-21-2024 End: 06-21-2024 Patient encounter procedure 06/21/2024 10:15 AM EST Office Visit [facility] [address] [place] [address] Korey Valencia, DO [address] [place] [address] [facility] [place] Start: 06-20-2024 End: 06-20-2024 Patient encounter procedure 06/20/2024 1:30 PM EST Office Visit [facility] [address] [place] [phone] Vernell Llamas MD [address] [place] [address] [facility] Start: 05-15-2024 End: 05-15-2024 Patient encounter procedure 05/15/2024 9:15 AM EST Office Visit [facility] [address] [place] [address] Vernell Llamas MD [address] [place] [address] [facility] Start: 05-08-2024 Hemoglobin A1c measurement Diabetes: Hemoglobin A1C [facility] Start: 05-07-2024 End: 05-07-2024 Patient encounter procedure 05/07/2024 10:30 AM EST Office Visit [facility] [address] [place] [address] Bautista Thayer MD [address] [place] [address] [facility] Start: 02-29-2024 End: 02-29-2024 Patient encounter procedure 02/29/2024 11:15 AM EST Office Visit [facility] [address] [place] [address] Mukesh Fernandez MD [address] [place] [address] Arrived [facility] Comment on above: Arrived Start: 12-24-2023 COVID-19 Vaccine () COVID-19 Vaccine () [facility] Start: 08-09-2023 Medicare Annual Wellness (AWV) Medicare Annual Wellness (AWV) [facility] Start: 07-25-2023 Hemoglobin A1c measurement Diabetes: Hemoglobin A1C [facility] Start: 06-26-2023 End: 06-26-2023 Patient encounter procedure 06/26/2023 11:00 AM EST Office Visit [facility] [address] [place] [address] Bautista Thayer MD [address] [place] [address] [facility] Start: 06-08-2023 End: 06-08-2024 XR Ankle - left 3 Views XR ankle 3+ views left Imaging Routine Acute left ankle pain Expected: 06/08/2023, Expires: 06/08/2024 [facility] Comment on above: Expected: 06/08/2023, Expires: 5 Start: 06-08-2023 End: 06-08-2024 XR Foot - left 3 Views XR foot 3+ views left Imaging Routine Left foot pain Expected: 06/08/2023, Expires: 06/08/2024 [facility] Work Phone: Comment on above: Expected: 06/08/2023, Expires: 5 Start: 06-08-2023 End: 06-08-2023 Patient encounter procedure 06/08/2023 11:00 AM EST Office Visit [facility] [address] [facility] [address] [place] [phone] Delores Carrero PA [address] [facility] [address] [place] [address] [facility] Start: 11-12-2022 Glaucoma screening Diabetes: Retinopathy Screening [facility] Start: 02-16-2016 RSV High Risk: (Elderly (60+) or Population) (1 - 1-dose 75+ series) RSV High Risk: (Elderly (60+) or Population) (1 - 1-dose 75+ series) [facility] Start: 2006 Screening for osteoporosis Bone Density Scan [facility] Start: 1991 Zoster Vaccines (1 of 2) Zoster Vaccines (1 of 2) [facility] Start: 1963 DTaP/Tdap/Td Vaccines (1 - Tdap) DTaP/Tdap/Td Vaccines (1 - Tdap) [facility] Start: 1951 Glaucoma screening Diabetes: Retinopathy Screening [facility] Start: 1941 Annual wellness visit Welcome to Medicare Visit [facility] Start: 1941 Creatinine measurement Creatinine Level [facility] Start: 1941 Echocardiography Echocardiogram [facility] Start: 1941 Hemoglobin A1c measurement Diabetes: Hemoglobin A1C [facility] Start: 1941 Lipid panel Lipid Panel [facility] Start: 1941 Potassium measurement Potassium Level [facility] Start: 1941 Thyroid stimulating hormone measurement TSH Level [facility] Dermatopathology exam Dermatopat hology exam Pathology and Cytology Timed Neoplasm of unspecified behavior of bone, soft tissue, and skin Release Upon Ordering for 1 Occurrences starting 02/29/2024 [facility] Work Phone: Comment on above: Release Upon Ordering for 1 Occurrences starting 02/29/2024 Patient Education Know your Meds [facility] Work Phone: Patient referral [facility] Work Phone: Immunizations Immunization Date Immunization Notes Care Provider Fa [facility] 02-06-2024 Influenza, High-dose Seasonal, Quadrivalent, Preservative Free Bautista Thayer MD Work Phone: [facility] 02-06-2024 influenza virus vacc ine, unspecified formulation Bautista Thayer MD Work Phone: [facility] 01-24-2023 Influenza, High-dose Seasonal, Quadrivalent, Preservative Free Delores Hemmer PA Work Phone: [facility] 02-14-2022 Influenza, High-dose Seasonal, Quadrivalent, Preservative Free Delores Hemmer PA Work Phone: [facility] 02-12-2021 influenza, high dose seasonal, preservative-free Delores Hemmer PA Work Phone: [facility] 02-24-2020 influenza, high dose seasonal, preservative-free Delores Hemmer PA Work Phone: [facility] 02-24-2020 Influenza, High-dose Seasonal, Quadrivalent, Preservative Free Delores Hemmer PA Work Phone: [facility] 02-21-2018 influenza, injectabl e, quadrivalent, contains preservative Delores Hemmer PA Work Phone: [facility] 03-30-2017 Influenza, injectabl e, [place] Canine Kidney, preservative free, quadrivalent Delores Hemmer PA Work Phone: [facility] 03-05-2015 pneumococcal conjuga te vaccine, 13 valent Delores ALMANZA Work Phone: [facility] 01-30-2014 diphtheria, tetanus toxoids and acellular pertussis vaccine Delores ALMANZA Work Phone: [facility] 01-30-2014 influenza, seasonal, injectable Delores ALMANZA Work Phone: [facility] 03-08-2011 pneumococcal polysaccharide vaccine, 23 valent Delores ALMANZA Work Phone: [facility] Healthcare Payers Date Payer Category Payer Self-pay 2024 Unknown [id number] 2022 Unknown [employer] [id number] 2022-Present [address] [place] [address] [id number] 2020 Medicare (Managed Care) 1.2. [id number] 2020 Unknown [id number] 1941 Unknown [id number] [id number] .593 1941 Unknown [id number] [id number] .1259 1941 Unknown [id number] 2.16.840.1.117397.3.579.2 .1259 1941 Unknown [id number] 2.16.840.1.492241.3.579.2 .1259 1941 Unknown [id number] 2.16.840.1.016469.3.579.2 .1259 1941 Unknown [id number] 2.16.840.1.176790.3.579.2 .1259 1941 Unknown [id number] 2.16.840.1.478130.3.579.2 .1259 1941 Unknown [id number] 2.16.840.1.409137.3.579.2 .1259 1941 Unknown [id number] 2.16.840.1.838891.3.579.2 .9 1941 Unknown [id number] 2.16.840.1.492048.3.579.2 .9 1941 Unknown [id number] 2.16.840.1.466118.3.579.2 .1258 1941 Unknown [id number] 2.16.840.1.701461.3.579.2 .9 1941 Unknown [id number] 2.16.840.1.236515.3.579.2 .1244 Private Health Insurance [employer] [facility] PFFS [id number] Unknown [place] [facility] PFFS OP [id number] Unknown [id number] [id number] .531 Unknown [id number] .531 Social History Date Type Detail Facility Start: 11-01-2022 End: 11-21-2024 Tobacco smoking status [facility] Never smoked tobacco [facility] Work Phone: Start: 11-01-2022 End: 11-21-2024 Tobacco use and exposure Smokeless tobacco non-user [facility] Start: 04-25-2023 End: 11-11-2024 Alcohol intake Lifetime non-drinker (finding) [facility] Start: 11-01-2022 End: 11-21-2024 History of Social function [facility] Start: 11-01-2022 End: 11-21-2024 Humiliation, Afraid, Rape, and Kick questionnaire [HARK] [facility] Within the last year , have you been afraid of your partner or ex-partner? No [facility] Do you belong to any clubs or organizations such as mandaeism groups, unions, fraternal or athletic groups, or school groups? Yes [facility] Are you now , , , , never or living with a partner? [facility] How often to you hav e a drink containing alcohol? Never [facility] Start: 11-11-[address] inks containing alcohol do you have on a typical day? Patient does not drink [facility] Do you feel stress - tense, restless, nervous, or anxious, or unable to sleep at night because your mind is troubled all the time - these days [OSQ] Only a little [facility] (I/We) worried wheth er (my/our) food would run out before (I/we) got money to buy more. Never true [facility] Start: 1940 Sex Assigned At Not on file [facility] Start: 06-25-2024 End: 06-27-2024 Sex Female (finding) [facility] Start: 1940 Sex Assigned At Female F [facility] Medical Equipment Procedure Code Equipment Code Equipment Origin al Text Equipment Identifier Dates USE DIRECTED DAILY [id number] Start: 11-01-2022 End: 06-08-2023 use to test BLOO D SUGAR THREE TIMES DAILY [id number] Start: 12-16-2022 Inject 1 each un ninoska the skin in the morning and 1 each in the evening and 1 each before bedtime. USE DIRECTED DAILY. [id number] Start: 06-08-2023 Inject 1 each un ninoska the skin in the morning and 1 each in the evening and 1 each before bedtime. USE DIRECTED DAILY. [id number] Start: 09-05-2024 End: 09-05-2025 Goals Date Patient Goal Desired Activity /State Functional Status Date Assessment Result Facility 11-11-2024 Patient Health Quest ionnaire 2 item (PHQ-2) [Reported] [facility] 08-12-2024 Patient Health Quest ionnaire 2 item (PHQ-2) [Reported] [facility] Clinical Notes 06-08-2023 to 11-21-2024 Nagi Murry MD - 11/21/2024 10:30 AM EDTPatient InstructionsAttachmentsBautista Thayer MD - 11/11/2024 11:47 AM EDTRboaz Thayer MD - 11/11/2024 11:33 AM EDT Note Date & Type Note Facility 11-21-2024 Note Sinus rhythm, low vo ltage, poor R wave anterior progression, question anterior [place]. Rate 70. CPACS 11-21-2024 History of Present illness Narrative CARDIOLOGY CONSULTATION NOTE Patient: Willie Espinosa Date of : 1940 Date: 11/21/2024 Primary Physician: Bautista Thayer MD REASON FOR CONSULT / CHIEF COMPLAINT: Chest pain IMPRESSION: Chest pain Dyspnea on exertion Palpitations Lightheadedness Presyncope Edema Orthopnea Fatigue Congestive heart failure, diastolic, chronic Negative Myoview perfusion stress test April 2023, LVEF 82% Normal left ventricular function, Left ventricular ejection fraction 65 to 70%,, echocardiogram, 11/2023 Left ventricular hypertrophy Biatrial enlargement LV diastolic dysfunction Mild mitral and tricuspid regurgitation Hyperlipidemia Diabetes Renal insufficiency Asthma Hypothyroidism Degenerative joint disease history of right knee arthroscopic surgery Kidney stones post prior lithotripsy Lung cancer history, 40 years ago : Cancer post resection, 40 years ago Prior cholecystectomy Prior appendectomy Prior hysterectomy Obesity Otherwise as per assessment below. RECOMMENDATIONS: Patient has above-noted history and findings. Would suggest obtaining 48-hour Holter monitor at this time. She had recent perfusion stress test and echocardiogram as noted. She probably has some mild congestive heart. But most likely has symptomatology due to deconditioning. Would add diltiazem CD1 120 mg daily this time. She will continue her other medications. Refills were provided. Exercise dietary program as tolerated. Hydration. Support stockings MyChart portal use was encouraged. We will plan to see back after the above testing with Laboratory Studies and ECG as noted. Patient will follow up with their primary physician for general care. The patient knows to contact medical care earlier if need be. HPI: Willie Espinosa was seen in cardiac evaluation at the [facility] Cardiology office November 21, 2024. The patients problems are listed as in the impression above. Electronic medical records reviewed. The patient is a pleasant 84-year-old hypertensive, hyperlipidemic, diabetic, hypothyroid woman with recent chest pain symptoms whom are asked to see in cardiology consultation. This is her first visit. She has had no prior cardiovascular history except for a negative Myoview perfusion stress test April 2023. Ejection fraction at that time was 82%. Echocardiogram previously was also done in November 2023 which noted preserved left ventricular function ejection fraction 65 to 70%. Mild left ventricular hypertrophy. Biatrial enlargement. Diastolic dysfunction. No significant valvular heart disease. She states that she lives alone. She is retired. She over the last 2 years has had increasing symptomatology of chest pain with exertion, palpitations, lightheadedness, dizziness and presyncopal episodes. She has had no true syncope. She does have some orthopnea. She has some fatigue. She denies any snoring. She notes some lower extremity edema. She states that she does have neuropathy. She has degenerative joint disease limiting her activity. Patient denies SOB, TIA or CVA symptoms. No Palpitations. No GI, or Bleeding Issues. No Recent Fever or Chills. Cardiovascular and general review of systems is otherwise negative. A 14-system review is otherwise negative, other than noted. ALLERGIES: Aspirin MEDICATIONS: Current Outpatient Medications Medication Instructions albuterol 90 mcg/actuation inhaler 2 puffs, Every 6 hours PRN baclofen (Lioresal) 10 mg tablet TAKE 1 TABLET BY MOUTH WITH FOOD or milk THREE TIMES DAILY ergocalciferol (VITAMIN D-2) 1.25 mg, Weekly furosemide (LASIX) 20 mg, Daily before breakfast levothyroxine (SYNTHROID, LEVOXYL) 50 mcg, Daily before breakfast losartan (COZAAR) 25 mg, Daily RT Lyumjev KwikPen U-100 Insulin 8 Units Toujeo SoloStar U-300 Insulin 33 Units PAST MEDICAL HISTORY: As per impression above. No other significant past medical or surgical history appreciated. SOCIAL HISTORY: . Lives alone. Children live close. Retired. Denies tobacco alcohol or illicit drug use. FAMILY HISTORY: Positive family history of CAD with early myocardial infarction and congestive heart failure. VITALS: Vitals: 11/21/24 1102 BP: 120/60 Pulse: Wt Readings from Last 4 Encounters: 11/21/24 82.6 kg (182 lb) PHYSICAL EXAMINATION: General: No acute distress. Vital signs as noted. Alert and oriented. Head And Neck Examination: No jugular venous distention, no carotid bruits, no mass. Carotid upstrokes preserved. Oral mucosa moist. No xanthelasma. Head and neck examination otherwise unremarkable. Lungs: Clear to auscultation and percussion. No wheezes, no rales, and no rhonchi. Chest: Excursion appeared to be normal. No chest wall tenderness on palpation. Heart: Normal S1 and S2. No S3. No S4. No rub. Grade 1/6 systolic murmur, best heard at the left sternal border. Point of maximal impulse was within normal limits. Abdomen: Soft. Nontender. No organomegaly. No bruits. No masses. Obese. Extremities: 1-2+ bipedal edema. No clubbing. No cyanosis. Pulses are strong throughout. No bruits. Musculoskeletal Exam: No ulcers, otherwise unremarkable. Neuro: Neurologically appeared grossly intact. ELECTROCARDIOGRAM: Sinus rhythm, low voltage, poor R wave anterior progression, question anterior [place]. Rate 70. CARDIAC TESTING: Echocardiogram, 11/2023: Normal left ventricular function. Left ventricular ejection fraction 65 to 70% Left ventricular hypertrophy Biatrial enlargement LV diastolic dysfunction Mild mitral and tricuspid regurgitation Myoview cardiac fusion stress test, 04/2023: Negative study without evidence of ischemia or [place] LVEF 82%. LABORATORY DATA: 11/24/2024: Chem-7, CBC normal except for creatinine 1.2, GFR 43. PROBLEM LIST: Problem List[1] Nagi Murry MD, [facility] / Cardiology Of Note: [employer] voice recognition dictation software was utilized partially in the preparation of this note, therefore, inaccuracies in spelling, word choice and punctuation may have occurred which were not recognized at the time of signing. Patient was seen and examined with total time of visit including chart preparation, rooming, and chart completion exceeding 40 minutes. IEleonora LPN am scribing for, and in the presence of Dr. Nagi Murry MD, [facility]. I, Dr. Nagi Murry MD, [facility], personally performed the services described in the documentation as scribed by Eleonora Pryor LPN in my presence, and confirm it is both accurate and complete. [1] Patient Active Problem List Diagnosis Other chest pain Never smoked tobacco History of lung cancer History of colon cancer Essential (primary) hypertension Murmur, cardiac Obesity (BMI 30-39.9) Type 2 diabetes mellitus with chronic kidney disease, with long-term current use of insulin (Multi) Localized edema LVH (left ventricular hypertrophy) Biatrial enlargement Diastolic dysfunction Mitral regurgitation Tricuspid regurgitation Hypothyroid Uncomplicated asthma (HHS-HCC) Dizziness and giddiness Near syncope Orthopnea Fatigue Blurry vision Encounter to establish care History of fall Acute diastolic heart failure documented in this encounter [facility] Work Phone: 11-21-2024 Instructions Eleonora Tobias LPN - 11/21/2024 10:30 AM EDT Please bring all medicines, vitamins, and herbal supplements with you when you come to the office. Prescriptions will not be filled unless you are compliant with your follow up appointments or have a follow up appointment scheduled as per instruction of your physician. Refills should be requested at the time of your visit. EKG done in office today BMI was above normal measurement. Current weight: 82.6 kg (182 lb) Weight change since last visit (-) denotes wt loss 182 lbs Weight loss needed to achieve BMI 25: 66.7 Lbs Weight loss needed to achieve BMI 30: 43.7 Lbs Provided instructions on dietary changes. Try compression stockings; look for ones with zipper START Diltiazem 120 mg daily The following attachments cannot be sent through Care Everywhere.Preventing Falls ED (Samoan)Heart Healthy Diet (Samoan)documented in this encounter [facility] Work Phone: 11-11-2024 History of Present illness Narrative Associated Problem(s): Other chest pain Probably needs Heart Cath Needs cardiology Pretest probability is high with minimal exertion. If classic symptoms of chest pain and does not resolve with rest go to ER Associated Problem(s): Uncontrolled type 2 diabetes mellitus with hypoglycemia (HCC) No Tobacco use Follow ADA 1800 diet low carbohydrate Continue Med Compliance Goal LDL less than 100 Goal BP 130/80 Goal HgbA1c < 7.0% Monitor Feet, monitor for infection Needs Exercise Yearly eye exams Prior to your visit today we reviewed your chart and outlined testing and treatment needed for your care. Reviewed poissble complications of diabetes including, loss of vision, kidney failure and increased risk of heart attacks and stroke. We made recommendations on how to control your blood sugars, and minimize your risk of these complications. We discussed your current barriers to a healthy living and importance of healthy diet and exercise. Images from the original note were not included. HPI Diabetes Additional comments: Last 7.6 Last edited by Britni Aguayo MA on 11/11/2024 7:15 AM. Subjective Patient ID: Willie Espinosa is a 84 y.o. female who presents for Diabetes (Last 7.6). Pt states her levothyroxine has been making her have an upset stomach lately Pt states the new insulin is not helping her at all lyumjev , pt is also complaining that if she eats a normal supper her sugars in the morning will be high When overexerting self does get chest pain. Will have to stop and sit down and chest pain stops Diabetes She presents for her follow-up diabetic visit. She has type 2 diabetes mellitus. No MedicAlert identification noted. The initial diagnosis of diabetes was made 5 years ago. Her disease course has been worsening. Pertinent negatives for hypoglycemia include no confusion, dizziness, nervousness/anxiousness, seizures, speech difficulty or tremors. Associated symptoms include chest pain. Pertinent negatives for diabetes include no fatigue, no polyphagia, no polyuria and no weakness. There are no hypoglycemic complications. Symptoms are worsening. Diabetic complications include peripheral neuropathy. Pertinent negatives for diabetic complications include no heart disease. Risk factors for coronary artery disease include diabetes mellitus and hypertension. Current diabetic treatment includes intensive insulin program. She is compliant with treatment all of the time. Her weight is stable. She is following a diabetic diet. She has not had a previous visit with a dietitian. She participates in exercise daily. There is no change in her home blood glucose trend. An KILO inhibitor/angiotensin II receptor reyna is being taken. She does not see a table inspector.Eye exam is current. Over the past 2 weeks, how often have you been bothered by any of the following problems? Little interest or pleasure in doing things: Not at all Feeling down, depressed, or hopeless: Not at all Patient Health Questionnaire-2 Score: 0 Current Outpatient Medications on File Prior to Visit Medication Sig Dispense Refill acetaminophen (Tylenol) 500 MG tablet Take 500 mg by mouth every 6 (six) hours if needed. albuterol (2.5 MG/3ML) 0.083% nebulizer solution Take 3 mL (2.5 mg) by nebulization every 6 (six) hours if needed for wheezing 75 mL 11 baclofen (Lioresal) 10 MG tablet TAKE 1 TABLET BY MOUTH WITH FOOD or milk THREE TIMES DAILY 270 tablet 1 Continuous Glucose Nutrition Teacher (FreeStyle Ivy 2 [place]) device Inject 1 Device under the skin Daily 1 each 0 Continuous Glucose Sensor (FreeStyle Ivy 2 Sensor) misc Inject 1 Device under the skin every 14 (fourteen) days 6 each 3 Elastic Bandages & Supports (Post-OP Shoe/Soft Top Women) misc Apply the shoe daily, use until foot is healed 1 each 0 ergocalciferol (Vitamin D2) 1.25 MG (53533 UT) capsule Take 1 capsule (1.25 mg) by mouth 1 (one) time per week 12 capsule 3 Fluocinolone Acetonide Scalp (fluocinolone) 0.01 % oil Apply to scalp, up to twice a day for flares, 30 day supply 118.28 mL 11 fluocinonide (Lidex) 0.05 % external solution Apply to affected areas on the scalp, up to twice a day when flared, 30 day supply 60 mL 11 furosemide (Lasix) 20 MG tablet TAKE 1 TABLET BY MOUTH IN THE MORNING 100 tablet 3 insulin glargine (Toujeo SoloStar) 300 UNIT/ML injection Inject 33 Units under the skin at bedtime 9.9 mL 3 insulin pen needle (BD Pen Needle Shakira U/F) 32G x 4 mm misc Inject 1 each under the skin in the morning and 1 each in the evening and 1 each before bedtime. USE DIRECTED DAILY. 300 each 3 levothyroxine (Synthroid, Levoxyl) 50 MCG tablet TAKE 1 TABLET BY MOUTH IN THE MORNING ON AN EMPTY STOMACH 100 tablet 3 losartan (Cozaar) 25 MG tablet TAKE 1 TABLET BY MOUTH DAILY 90 tablet 3 OneTouch Verio test strip use to test BLOOD SUGAR THREE TIMES DAILY 100 each 11 traMADol (Ultram) 50 MG tablet Take 1 tablet (50 mg) by mouth every 4 (four) hours if needed for severe pain 180 tablet 0 [DISCONTINUED] albuterol HFA 90 mcg/act inhaler Inhale 2 puffs every 6 (six) hours if needed for shortness of breath 18 g 3 [DISCONTINUED] Lyumjev KwikPen 100 UNIT/ML pen INJECT 6 (SIX) UNITS SUBCUTANEOUSLY (UNDER THE SKIN) IN THE MORNING then INJECT 6 (SIX) UNITS SUBCUTANEOUSLY (UNDER THE SKIN) BEFORE bedtime 15 mL 0 No current facility-administered medications on file prior to visit. I have reviewed and reconciled the history and medication list with the patient today. Allergies Allergen Reactions Aspirin Other Reaction(s): makes her stomach burn Gabapentin Hallucinations Social History Tobacco Use Smoking status: Never Smokeless tobacco: Never Vaping Use Vaping status: Never Used Substance Use Topics Alcohol use: Never Drug use: Never Family History Problem Relation Name Age of Onset Cancer Mother Heart disease Mother Diabetes Father Past Medical History: Diagnosis Date Actinic keratosis Arthritis Colon cancer (HCC) CT scan of Abdomen An Approximately 1 cm calculus within the posterior aspect of the left kidney 10/07/2020 Diabetes (HCC) Hyperlipidemia Lung cancer (HCC) Stress test: No reversible ischemia, Normal exercise test 03/02/2022 Past Surgical History: Procedure Laterality Date APPENDECTOMY CHOLECYSTECTOMY COLECTOMY colon resection HYSTERECTOMY LITHOTRIPSY LUNG REMOVAL, PARTIAL Left Left lung frontal lobe removed NH ARTHROCENTESIS ASPIR&/INJ MAJOR JT/BURSA W/O US Right Arthrocentesis of the right knee joint TONSILLECTOMY WOUND DEBRIDEMENT 06/27/2024 Mohs repair Nose Visit Vitals BP 138/78 Pulse 66 Ht 4' 11 Wt 178 lb SpO2 95% BMI 35.95 kg/m Smoking Status Never BSA 1.83 m Review of Systems Constitutional: Negative for fatigue. Cardiovascular: Positive for chest pain. Neurological: Negative for dizziness, tremors, seizures, speech difficulty and weakness. Psychiatric/Behavioral: Negative for confusion. The patient is not nervous/anxious. Endocrine: Negative for polyphagia and polyuria. Objective Physical Exam Constitutional: General: She is not in acute distress. Appearance: Normal appearance. HENT: Head: Normocephalic. Neck: Vascular: No carotid bruit. Cardiovascular: Rate and Rhythm: Normal rate and regular rhythm. Heart sounds: Murmur heard. Pulmonary: Effort: Pulmonary effort is normal. No respiratory distress. Breath sounds: Normal breath sounds. Neurological: General: No focal deficit present. Mental Status: She is alert and oriented to person, place, and time. Psychiatric: Mood and Affect: Mood normal. Office Visit on 11/11/2024 Component Date Value Ref Range Status Hemoglobin A1C 11/11/2024 7.7 Final Assessment/Plan Problem List Items Addressed This Visit Uncontrolled type 2 diabetes mellitus with hypoglycemia (HCC) No Tobacco use Follow ADA 1800 diet low carbohydrate Continue Med Compliance Goal LDL less than 100 Goal BP 130/80 Goal HgbA1c < 7.0% Monitor Feet, monitor for infection Needs Exercise Yearly eye exams Prior to your visit today we reviewed your chart and outlined testing and treatment needed for your care. Reviewed poissble complications of diabetes including, loss of vision, kidney failure and increased risk of heart attacks and stroke. We made recommendations on how to control your blood sugars, and minimize your risk of these complications. We discussed your current barriers to a healthy living and importance of healthy diet and exercise. Relevant Medications insulin lispro-aabc (Lyumjev KwikPen) 100 UNIT/ML pen Other Relevant Orders POCT Glycated hemoglobin, total (Completed) Asthma (HCC) Relevant Medications albuterol HFA 90 mcg/act inhaler Other chest pain - Primary Probably needs Heart Cath Needs cardiology Pretest probability is high with minimal exertion. If classic symptoms of chest pain and does not resolve with rest go to ER Relevant Orders Ambulatory referral to Cardiology Follow up in about 3 months (around 02/11/2025) for Diabetes. documented in this encounter [facility] 10-18-2024 Telephone encounter Note Refill sent in for pt of Losartan [facility] 10-18-2024 Miscellaneous Notes Refill sent in for pt of Losartan documented in this encounter [facility] 08-12-2024 History of Present illness Narrative Associated Problem(s): Basal cell carcinoma (BCC) of left side of nose S/P Moh's Procedure Associated Problem(s): Type 2 diabetes mellitus with diabetic chronic kidney disease ([facility]/HCC) No Tobacco use Follow ADA 1800 diet low carbohydrate Continue Med Compliance Goal LDL less than 100 Goal BP 130/80 Goal HgbA1c < 7.0% Monitor Feet, monitor for infection Needs Exercise Yearly eye exams Prior to your visit today we reviewed your chart and outlined testing and treatment needed for your care. Reviewed poissble complications of diabetes including, loss of vision, kidney failure and increased risk of heart attacks and stroke. We made recommendations on how to control your blood sugars, and minimize your risk of these complications. We discussed your current barriers to a healthy living and importance of healthy diet and exercise. Associated Problem(s): Chronic kidney disease, stage 3b (HCC) (CMS/HCC) Monitor Increase fluids Avoid nephrotoxic substances Avoid NSAIDs such as Ibuprofen, Motrin, Naprosyn. Increase fluids. Images from the original note were not included. HPI Diabetes Additional comments: Last A1c was 7.7 Last edited by Britni Aguayo MA on 08/12/2024 7:17 AM. Subjective Patient ID: Willie Espinosa is a 84 y.o. female who presents for Diabetes (Last A1c was 7.7). Pt sugar still been up and down Pt states if you take levothyroine for a long period of time it is not good for you and she is also having some of the side effects like losing hair, tired, swelling, out of breath, headaches Pt states both of her legs have been swelling since last week and she is on lasix If lab work needed she only had coffee with milk Diabetes She presents for her follow-up diabetic visit. She has type 2 diabetes mellitus. No MedicAlert identification noted. The initial diagnosis of diabetes was made 5 years ago. Her disease course has been worsening. Pertinent negatives for hypoglycemia include no confusion, dizziness, nervousness/anxiousness, seizures, speech difficulty or tremors. There are no diabetic associated symptoms. Pertinent negatives for diabetes include no chest pain, no fatigue, no polyphagia, no polyuria and no weakness. There are no hypoglycemic complications. Symptoms are worsening. Diabetic complications include peripheral neuropathy. Pertinent negatives for diabetic complications include no heart disease. Risk factors for coronary artery disease include diabetes mellitus and hypertension. Current diabetic treatment includes intensive insulin program. She is compliant with treatment all of the time. Her weight is stable. She is following a diabetic diet. She has not had a previous visit with a dietitian. She participates in exercise daily. There is no change in her home blood glucose trend. An KILO inhibitor/angiotensin II receptor reyna is being taken. She does not see a table inspector.Eye exam is current. Current Outpatient Medications on File Prior to [...] milk THREE TIMES DAILY 270 tablet 1 Continuous Blood Gluc Nutrition Teacher (SendinBlue Ivy 2 [place]) device USE DIRECTED DAILY FOR 365 DAYS Continuous Glucose Sensor (FreeStyle Ivy 2 Sensor) misc Inject 1 Device under the skin every 14 (fourteen) days 6 each 3 Elastic Bandages & Supports (Post-OP Shoe/Soft Top Women) misc Apply the shoe daily, use until foot is healed 1 each 0 ergocalciferol (Vitamin D2) 1.25 MG (11655 UT) capsule Take 1 capsule (1.25 mg) by mouth 1 (one) time per week 12 capsule 3 Fluocinolone Acetonide Scalp (fluocinolone) 0.01 % oil Apply to scalp, up to twice a day for flares, 30 day supply 118.28 mL 11 fluocinonide (Lidex) 0.05 % external solution Apply to affected areas on the scalp, up to twice a day when flared, 30 day supply 60 mL 11 furosemide (Lasix) 20 MG tablet TAKE 1 TABLET BY MOUTH IN THE MORNING 100 tablet 3 insulin pen needle (BD Pen Needle Shakira U/F) 32G x 4 mm misc Inject 1 each under the skin in the morning and 1 each in the evening and 1 each before bedtime. USE DIRECTED DAILY. 300 each 3 levothyroxine (Synthroid, Levoxyl) 50 MCG tablet TAKE 1 TABLET BY MOUTH IN THE MORNING ON AN EMPTY STOMACH 100 tablet 3 losartan (Cozaar) 25 MG tablet Take 1 tablet (25 mg) by mouth Daily 90 tablet 3 OneTouch Verio test strip use to test BLOOD SUGAR THREE TIMES DAILY 100 each 11 traMADol (Ultram) 50 MG tablet Take 1 tablet (50 mg) by mouth every 4 (four) hours if needed for severe pain 180 tablet 0 [DISCONTINUED] cephalexin (Keflex) 500 MG capsule Take 1 capsule by mouth, bid x 10 days. (Patient not taking: No sig reported) 20 capsule 0 [DISCONTINUED] insulin glargine (Toujeo Max SoloStar) 300 UNIT/ML injection Inject 30 Units under the skin at bedtime 9 mL 3 [DISCONTINUED] NovoLOG FLEXPEN 100 UNIT/ML pen INJECT 5 (FIVE) UNITS SUBCUTANEOUSLY TWICE DAILY (IN THE MORNING and IN THE EVENING) WITH MEALS 15 mL 11 [DISCONTINUED] Tresiba FlexTouch 200 UNIT/ML injection INJECT 30 UNITS SUBCUTANEOUSLY AT BEDTIME 13.5 mL 3 No current facility-administered medications on file prior to visit. I have reviewed and reconciled the history and medication list with the patient today. Allergies Allergen Reactions Aspirin Other Reaction(s): makes her stomach burn Gabapentin Hallucinations Social History Tobacco Use Smoking status: Never Smokeless tobacco: Never Vaping Use Vaping status: Never Used Substance Use Topics Alcohol use: Never Drug use: Never Family History Problem Relation Name Age of Onset Cancer Mother Heart disease Mother Diabetes Father Past Medical History: Diagnosis Date Actinic keratosis Arthritis Colon cancer (CMS/HCC) CT scan of Abdomen An Approximately 1 cm calculus within the posterior aspect of the left kidney 10/07/2020 Diabetes (CMS/HCC) Hyperlipidemia (CMS/HCC) Lung cancer (CMS/HCC) Stress test: No reversible ischemia, Normal exercise test 03/02/2022 Past Surgical History: Procedure Laterality Date APPENDECTOMY CHOLECYSTECTOMY COLECTOMY colon resection HYSTERECTOMY LITHOTRIPSY LUNG REMOVAL, PARTIAL Left Left lung frontal lobe removed [place] ARTHROCENTESIS ASPIR&/INJ MAJOR JT/BURSA W/O US Right Arthrocentesis of the right knee joint TONSILLECTOMY WOUND DEBRIDEMENT 06/27/2024 Mohs repair Nose Visit Vitals BP 130/68 Pulse 63 Ht 4' 11 Wt 183 lb SpO2 98% BMI 36.96 kg/m Smoking Status Never BSA 1.86 m Review of Systems Constitutional: Negative for fatigue. Cardiovascular: Negative for chest pain. Neurological: Negative for dizziness, tremors, seizures, speech difficulty and weakness. Psychiatric/Behavioral: Negative for confusion. The patient is not nervous/anxious. Endocrine: Negative for polyphagia and polyuria. Objective Physical Exam Constitutional: Appearance: Normal appearance. HENT: Head: Comments: S/p Moh's Neck: Vascular: No carotid bruit. Cardiovascular: Rate and Rhythm: Normal rate and regular rhythm. Musculoskeletal: Left lower leg: Edema present. Neurological: Mental Status: She is alert. Office Visit on 08/12/2024 Component Date Value Ref Range Status Hemoglobin A1C 08/12/2024 7.6 Final Assessment/Plan Problem List Items Addressed This Visit Diabetic retinopathy (CMS/HCC) Relevant Medications insulin aspart (NovoLOG FLEXPEN) 100 UNIT/ML pen Hypothyroidism (CMS/HCC) Relevant Orders TSH W/REFLEX TO FT4 Chronic kidney disease, stage 3b (HCC) (CMS/[facility]) Monitor Increase fluids Avoid nephrotoxic substances Avoid NSAIDs such as Ibuprofen, Motrin, Naprosyn. Increase fluids. Uncontrolled type 2 diabetes mellitus with hypoglycemia (CMS/HCC) Relevant Medications insulin glargine (Toujeo Max SoloStar) 300 UNIT/ML injection Other Relevant Orders Microalbumin / creatinine urine ratio POCT Glycated hemoglobin, total (Completed) Type 2 diabetes mellitus with diabetic chronic kidney disease ([facility]) No Tobacco use Follow ADA 1800 diet low carbohydrate Continue Med Compliance Goal LDL less than 100 Goal BP 130/80 Goal HgbA1c < 7.0% Monitor Feet, monitor for infection Needs Exercise Yearly eye exams Prior to your visit today we reviewed your chart and outlined testing and treatment needed for your care. Reviewed poissble complications of diabetes including, loss of vision, kidney failure and increased risk of heart attacks and stroke. We made recommendations on how to control your blood sugars, and minimize your risk of these complications. We discussed your current barriers to a healthy living and importance of healthy diet and exercise. Basal cell carcinoma (BCC) of left side of nose - Primary S/P Moh's Procedure Follow up in about 3 months (around 11/11/2024) for Diabetes. documented in this encounter [facility] 08-02-2024 History of Present illness Narrative Subjective Patient ID: Willie Espinosa is a 84 y.o. female who presents for Post-op HPI This patient presents for recheck of her nose. She is status post excision of basal cell carcinoma of the left nasal tip with bilobed reconstructive flap. Review of Systems The patient states to be doing relatively well. Does notice some mild decreased ventilation of the left side of her nose. Not having any pain or fever. The rest of her review of systems is unchanged Objective ENT Physical Exam The area of the flap has healed in very nicely. There still some increased thickness in his area likely resulting in some of her nasal symptoms. No evidence of residual disease. I do believe this flap we will continue to fade over time and thin out resulting in improve nasal function Assessment/Plan Diagnoses and all orders for this visit: Mohs defect of nose Comments: Flap continues to heal very well. I believe it will thin over time. Recheck as needed Basal cell carcinoma (BCC) of skin of nose documented in this encounter [facility] 07-03-2024 History of Present illness Narrative HPI Patient presents today 1 week postop flap repair of a left nasal Mohs defect by Dr. Rincon. She is doing fine. Relevant postoperative physical examination Sutures are removed, flap 100 percent viable and healing nicely. Assessment/plan Willie was seen today for post-op. Diagnoses and all orders for this visit: Mohs defect of nose (Primary) Comments: Patient given wound instructions, she should come back and see Dr. Rincon in 1 month documented in this encounter [facility] 06-21-2024 History of Present illness Narrative Subjective Patient ID: Willie Espinosa is a 84 y.o. female who presents for Mohs Reconstruction (New Patient : Mohs - nose BCC) HPI This patient presents for evaluation of Mohs defect of the left nose. Patient underwent excision of basal cell carcinoma in the region of the left lower nose. Presents today to discuss options regarding reconstruction. Review of Systems Patient having mild discomfort around the area of recent excision. Not having any bleeding. Denies any fever. The rest of her review of systems is negative. Allergies as of 06/21/2024 - Reviewed 06/21/2024 Allergen Reaction Noted Aspirin 10/18/2022 Gabapentin Hallucinations 08/01/2016 Past Medical History: Diagnosis Date Actinic keratosis Arthritis Colon cancer (CMS/HCC) CT scan of Abdomen An Approximately 1 cm calculus within the posterior aspect of the left kidney 10/07/2020 Diabetes (CMS/HCC) Hyperlipidemia (CMS/HCC) Lung cancer (CMS/HCC) Stress test: No reversible ischemia, Normal exercise test 03/02/2022 Current Outpatient Medications: acetaminophen (Tylenol) 500 MG tablet, Take 500 mg by mouth every 6 (six) hours if needed., Disp: , Rfl: albuterol HFA 90 mcg/act inhaler, Inhale 2 puffs every 6 (six) hours if needed for shortness of breath, Disp: 18 g, Rfl: 3 baclofen (Lioresal) 10 MG tablet, TAKE 1 TABLET BY MOUTH WITH FOOD or milk THREE TIMES DAILY, Disp: 270 tablet, Rfl: 1 cephalexin (Keflex) 500 MG capsule, Take 1 capsule by mouth, bid x 10 days., Disp: 20 capsule, Rfl: 0 Continuous Blood Gluc Nutrition Teacher (FreeStyle Ivy 2 [place]) device, USE DIRECTED DAILY FOR 365 DAYS, Disp: , Rfl: Continuous Glucose Sensor (FreeStyle Ivy 2 Sensor) misc, Inject 1 Device under the skin every 14 (fourteen) days, Disp: 6 each, Rfl: 3 Elastic Bandages & Supports (Post-OP Shoe/Soft Top Women) misc, Apply the shoe daily, use until foot is healed, Disp: 1 each, Rfl: 0 ergocalciferol (Vitamin D2) 1.25 MG (84529 UT) capsule, Take 1 capsule (1.25 mg) by mouth 1 (one) time per week, Disp: 12 capsule, Rfl: 3 Fluocinolone Acetonide Scalp (fluocinolone) 0.01 % oil, Apply to scalp, up to twice a day for flares, 30 day supply, Disp: 118.28 mL, Rfl: 11 fluocinonide (Lidex) 0.05 % external solution, Apply to affected areas on the scalp, up to twice a day when flared, 30 day supply, Disp: 60 mL, Rfl: 11 furosemide (Lasix) 20 MG tablet, TAKE 1 TABLET BY MOUTH IN THE MORNING, Disp: 100 tablet, Rfl: 3 insulin pen needle (BD Pen Needle Shakira U/F) 32G x 4 mm misc, Inject 1 each under the skin in the morning and 1 each in the evening and 1 each before bedtime. USE DIRECTED DAILY., Disp: 300 each, Rfl: 3 levothyroxine (Synthroid, Levoxyl) 50 MCG tablet, TAKE 1 TABLET BY MOUTH IN THE MORNING ON AN EMPTY STOMACH, Disp: 100 tablet, Rfl: 3 losartan (Cozaar) 25 MG tablet, Take 1 tablet (25 mg) by mouth Daily, Disp: 90 tablet, Rfl: 3 NovoLOG FLEXPEN 100 UNIT/ML pen, INJECT 5 (FIVE) UNITS SUBCUTANEOUSLY TWICE DAILY (IN THE MORNING and IN THE EVENING) WITH MEALS, Disp: 15 mL, Rfl: 11 OneTouch Verio test strip, use to test BLOOD SUGAR THREE TIMES DAILY, Disp: 100 each, Rfl: 11 traMADol (Ultram) 50 MG tablet, Take 1 tablet (50 mg) by mouth every 4 (four) hours if needed for severe pain, Disp: 180 tablet, Rfl: 0 Tresiba FlexTouch 200 UNIT/ML injection, INJECT 30 UNITS SUBCUTANEOUSLY AT BEDTIME, Disp: 13.5 mL, Rfl: 3 albuterol (2.5 MG/3ML) 0.083% nebulizer solution, Take 3 mL (2.5 mg) by nebulization every 6 (six) hours if needed for wheezing, Disp: 75 mL, Rfl: 11 Past Surgical History: Procedure Laterality Date APPENDECTOMY CHOLECYSTECTOMY COLECTOMY colon resection HYSTERECTOMY LITHOTRIPSY LUNG REMOVAL, PARTIAL Left Left lung frontal lobe removed [place] ARTHROCENTESIS ASPIR&/INJ MAJOR JT/BURSA W/O US Right Arthrocentesis of the right knee joint TONSILLECTOMY Social History Socioeconomic History Marital status: Spouse name: Not on file Number of children: Not on file Years of education: Not on file Highest education level: Not on file Occupational History Not on file Tobacco Use Smoking status: Never Smokeless tobacco: Never Vaping Use Vaping status: Never Used Substance and Sexual Activity Alcohol use: Never Drug use: Never Sexual activity: Defer Other Topics Concern Not on file Social History Narrative Not on file Social Drivers of Health Financial Resource Strain: Low Risk (11/01/2022) Overall Financial Resource Strain (CARDIA) Difficulty of Paying Living Expenses: Not hard at all Food Insecurity: No Food Insecurity (11/01/2022) Hunger Vital Sign Worried About Running Out of Food in the Last Year: Never true Ran Out of Food in the Last Year: Never true Transportation Needs: No Transportation Needs (11/01/2022) PRAPARE - Transportation Lack of Transportation (Medical): No Lack of Transportation (Non-Medical): No Physical Activity: Inactive (11/01/2022) Exercise Vital Sign Days of Exercise per Week: 0 days Minutes of Exercise per Session: 0 min Stress: No Stress Concern Present (11/01/2022) [place] [employer] - Occupational Stress Questionnaire Feeling of Stress : Only a little Social Connections: Moderately Integrated (11/01/2022) Social Connection and Isolation Panel [NHANES] Frequency of Communication with Friends and Family: More than three times a week Frequency of Social Gatherings with Friends and Family: More than three times a week Attends Caodaism Services: More than 4 times per year Active Member of Clubs or Organizations: Yes Attends Club or Organization Meetings: More than 4 times per year Marital Status: Intimate Partner Violence: Not At Risk (11/01/2022) Humiliation, Afraid, Rape, and Kick questionnaire Fear of Current or Ex-Partner: No Emotionally Abused: No Physically Abused: No Sexually Abused: No Housing Stability: Low Risk (11/01/2022) Housing Stability Vital Sign Unable to Pay for Housing in the Last Year: No Number of Places Lived in the Last Year: 1 Unstable Housing in the Last Year: No Objective ENT Physical Exam General Examination: General overview: Normal, age-appropriate, no evidence of distress Head: Normocephalic, atraumatic Eyes: Pupils are equally round and reactive to light and accommodation, extraocular muscles are intact Ears: External ear architecture within normal limits, ear canals are patent, tympanic membranes are intact. Nose: External nose Has a soft tissue defect of the left super tip region. Measures 1.5 x 1.5 cm No evidence of through and through depth. nares patent, septum intact, no evidence of congestion. Oral cavity: Mucosa moist, no evidence of ulcer, mass, or lesion Throat: Clear Neck/thyroid: Neck supple, full range of motion, no cervical lymphadenopathy, no evidence of thyromegaly Lymph nodes: No cervical lymphadenopathy Skin: Warm and dry, no evidence of suspicious lesions, no rash Heart: No jugular venous distention, point of maximal impulse normal Lungs: Good air movement, no audible wheezing, no shortness of breath Chest: Normal shape and expansion Abdomen: Normal, soft, nontender, nondistended Musculoskeletal: Cervical spine normal, full range of motion Extremities: No clubbing, cyanosis, or edema Peripheral pulses: 2+ radial, 2+ carotid Neurologic: Alert and oriented, cranial nerves 2-12 are grossly intact Psych: Alert and oriented, normal affect, no evidence of distress Assessment/Plan Diagnoses and all orders for this visit: Mohs defect of nose Comments: recommend wound debridement / skin biopsy and flap reconstruction At this time, I do recommend debridement of the wound with reconstruction utilizing flap and/or skin graft methods. All of the options, risks, and aspects are discussed in depth. The risks include but are not limited to bleeding, infection, poor wound healing, need for further surgery, nerve injury, serous disability, and documented in this encounter [facility] 06-20-2024 History of Present illness Narrative Images from the original note were not included. Mohs Surgery Location: Left nose Date of biopsy: 02/29/2024 Diagnosis: Basal Cell Carcinoma All pertinent medical history, medications, and allergies were reviewed. General Exam: alert, oriented to person, place, and time, normal affect, well appearing uses a cane Accompanied by daughter (Oneil) A focused exam completed based on patient reported problems, see below: 1. Basal cell carcinoma (BCC) of skin of nose Left nose Erythematous macule at the biopsy site Mohs surgery Consent obtained: written (The rationale for Mohs as well as the risks, benefits, and alternatives. The risks of infection, scarring, bleeding, prolonged wound healing, incomplete removal, allergy to anesthesia or meds, nerve injury, and recurrence were addressed.) [place] Protocol: Procedure explained and questions answered to patient or proxy's satisfaction: Yes Test results available and properly labeled: Yes Pathology report reviewed: Yes Photo or diagram used for site identification: Yes Site/side marked: Yes Anticoagulation: Is the patient taking prescription anticoagulant and/or aspirin prescribed/recommended by a physician? No Anesthesia: Anesthesia method: local infiltration Local anesthetic: lidocaine 1% WITH epi and sodium bicarbonate Procedure Details: Biopsy accession number: [id number] Biopsy lab: [facility] Date of biopsy: 02/29/2024 Frozen section biopsy performed: Yes Specimen debulked: No Pre-Op diagnosis: basal cell carcinoma BCC subtype: nodular MohsAIQ Surgical site (if tumor spans multiple areas, please select predominant area): nose Surgery side: left Surgical site (from skin exam): Left nose Pre-operative length (cm): 0.5 Pre-operative width (cm): 0.5 Indications for Mohs surgery: anatomic location where tissue conservation is critical Other indications for Mohs surgery: Central face Previously treated? No Mohs Appropriate Use Criteria Score: 7 Details of micrographic surgery: Mohs accession number: [id number] Micrographic Surgery Details: Post-operative length (cm): 1.3 Post-operative width (cm): 1 Number of Mohs stages: 3 Stage 1 Comments: The area was prepped with Betadine, draped in a sterile fashion, and infiltrated with local anesthetic. Sterile technique was used throughout the procedure. The marked area of clinical tumor with a small rim of clinically normal surrounding skin was removed using Mohs technique with beveled edges. Hash campos were placed for orientation of the specimen. Hemostasis was achieved with electrodessication. After hemostasis, the defect was measured and recorded, a temporary sterile dressing was placed over the wound. The specimen was oriented, mapped, and if necessary, divided into sections. A Mohs map was prepared. The specimen was placed in a labeled precious dish and was taken to the Mohs lab where it was chromacoded and processed. Mohs sections were prepared with serial tissue sections, stained, and evaluated by Dr. Llamas for interpretation of deep and peripheral margins. The Mohs map was marked accordingly. Amount of lidocaine used: 0.7 cc Estimated blood loss: minimal Defect size: 1.2 x 0.9 cm Number of blocks per stage: 1 Number of positive blocks: 1 Tumor features identified on Mohs section: basal carcinoma Tumor features identified on Mohs section comment: nodular pattern Depth of defect after stage: dermis Stage 2 Comments: The dressing was removed, the tumor area was re-prepped and draped, and anesthesia was assessed and augmented as necessary. A layer of tissue around the positive margin(s) was removed, and the tissue was oriented, mapped, and processed in an identical fashion as for Stage 1. Hemostasis was achieved and dressing placed as in Stage 1. As with Stage 1, Mohs sections were prepared with serial tissue sections, stained, and evaluated by Dr. Llamas for interpretation of deep and peripheral margins. The Mohs map was updated. Assistants: Jacob Figueredo LPN Amount of lidocaine used: 0.9 cc Estimated blood loss: minimal Defect size: 1.3 x 1.0 cm Number of blocks: 1 Number of positive blocks: 1 Tumor features identified on Mohs section: basal carcinoma Tumor features identified on Mohs section comment: nodular pattern Depth of defect after stage comment: deep dermis Stage 3 Comments: The dressing was removed, the tumor area was re-prepped and draped, and anesthesia was assessed and augmented as necessary. A layer of tissue around the positive margin(s) was removed, and the tissue was oriented, mapped, and processed in an identical fashion as for Stage 1. Hemostasis was achieved and dressing placed as in Stage 1. As with Stage 1, Mohs sections were prepared with serial tissue sections, stained, and evaluated by Dr. Llamas for interpretation of deep and peripheral margins. The Mohs map was updated. Assistants: Jacob Figueredo LPN Amount of lidocaine used: 3.0 cc Estimated blood loss: < 1.0 cc Defect size: 1.3 x 1.0 cm Number of blocks: 1 Number of positive blocks: 0. Tumor free margins were obtained and the Mohs procedure was considered complete. Tumor features identified on Mohs section: no tumor identified Depth of defect after stage comment: deep dermis Patient tolerance of procedure: tolerated well, no immediate complications Reconstruction: Was the defect reconstructed? Yes Was reconstruction performed by the same Mohs surgeon? No If no, what is the specialty of the surgeon who did the reconstruction? ENT facial plastics When was reconstruction performed? different day Antibiotics: Were antibiotics given on the day of surgery? Yes When were antibiotics given? post-operative Indication for post-operative antibiotics: anatomic location Mohs Post Operative Type of repair: Referred for repair to Beckie Valencia DO, consult is 06/21/2024 @ 10:15 am. Wound Care: A pressure dressing was placed on the surgical wound. Post-operative instructions were given in writing and were reviewed in great detail with the patient and her daughter. A follow-up appointment was made, and instructions were given to follow-up sooner if necessary. Related Procedures Ambulatory referral to ENT Related Medications cephalexin (Keflex) 500 MG capsule Take 1 capsule by mouth, bid x 10 days. Next visit: 11/28/2024, skin check documented in this encounter [facility] 05-16-2024 History of Present illness Narrative Associated Problem(s): Essential hypertension (CMS/HCC) Narrative & [place] [address] Cardiology Report Signed Patient: WILLIE ESPINOSA MR#: [id number] : 1940 Acct:[id number] Age/Sex: 83 / F ADM Date: 11/23/23 Loc: CARD Attending Dr: BAUTISTA THAYER Ordering Physician: BAUTISTA THAYER Date of Service: 11/23/23 Procedure(s): CA echo doppler complete Accession Number(s): [id number] cc: BAUTISTA THAYER Patient Name: WILLIE ESPINOSA MR#: [id number] : 1940 Exam Date: 11/23/2023 Ordering Doctor: DR BAUTISTA THAYER M.D. ECHOCARDIOGRAM REPORT PROCEDURE: CA ECHO DOPPLER COMPLETE INDICATIONS: Murmur, hypertension, diabetes, h/o colon cancer, h/o lung cancer (left lower lobe removed) COMPARISON: None. DESCRIPTION: COMPLETE ECHOCARDIOGRAM Real-time transthoracic echocardiography with 2D, M-mode, spectral and color flow Doppler performed. QUALITY: Technical quality was good. LEFT VENTRICLE: Normal chamber size. Mild concentric left ventricular hypertrophy. LV EF: Global left ventricular systolic function is hyperdynamic; visually estimated ejection fraction is 65 to 70%. No wall motion abnormalities. DIASTOLIC: Grade II diastolic dysfunction. ATRIAL SEPTUM: Visually appears intact. LEFT ATRIUM: Moderate dilatation. RIGHT ATRIUM: Mild dilatation. RIGHT VENTRICLE: Normal chamber size. Normal right ventricular systolic function. TRICUSPID VALVE: Normal mobility and thickness. No stenosis with mild regurgitation. No evidence of pulmonary hypertension. RVSP 29 mmHg MITRAL VALVE: Normal mobility and thickness. No evidence of mitral valve stenosis. Moderate mitral annular calcification. Mild mitral regurgitation. AORTIC VALVE: Normal trileaflet appearance. Mildly calcified aortic valve. Normal leaflet mobility. No evidence of aortic valve stenosis. No aortic regurgitation. AORTIC ROOT: Normal diameter and appearance. PULMONIC VALVE: Normal thickness and mobility. No stenosis. Trivial regurgitation. PERICARDIUM: Anterior free space; trivial effusion versus fat pad. IVC: Collapses with inspirations. CONCLUSION: 1. Global left ventricular systolic function is hyperdynamic; visually estimated ejection fraction is 65 to 70% 2. Mild left ventricular hypertrophy 3. Normal right ventricular size and systolic function 4. Biatrial enlargement 5. Grade 2 diastolic dysfunction 6. Mild tricuspid regurgitation 7. Mild mitral regurgitation 8. Anterior free space; trivial effusion versus fat pad Associated Problem(s): Medicare annual wellness visit, subsequent Colonoscopy every 10 years or Cologuard every 3 years ages 50-75 Flu Vaccine yearly Pneumovax and Prevnar Mammo yearly for women and PSA yearly for men Labs/Screening yearly to rule out Diabetes, Chronic Kidney disease and liver disease Hepatitis Screen forat risk populations Shingles vaccine after 65 if indicated Tetanus Vaccine every 10 years Lipids yearly under the age of 75 If Smoking history: one time CT scan of chest and Ultrasound of Aorta to screen for Anuerysm Images from the original note were not included. Subjective : Chief Complaint: Willie Espinosa is an 84 y.o. female here for an annual wellness visit. I have reviewed and reconciled the history and medication list with the patient today. Current Outpatient Medications Medication Sig Dispense Refill acetaminophen (Tylenol) 500 [...] milk THREE TIMES DAILY 270 tablet 1 Continuous Blood Gluc Nutrition Teacher (FreeStyle Ivy 2 [place]) device USE DIRECTED DAILY FOR 365 DAYS Continuous Glucose Sensor (FreeStyle Ivy 2 Sensor) misc Inject 1 Device under the skin every 14 (fourteen) days 6 each 3 Elastic Bandages & Supports (Post-OP Shoe/Soft Top Women) misc Apply the shoe daily, use until foot is healed 1 each 0 ergocalciferol (Vitamin D2) 1.25 MG (27362 UT) capsule Take 1 capsule (1.25 mg) by mouth 1 (one) time per week 12 capsule 3 Fluocinolone Acetonide Scalp (fluocinolone) 0.01 % oil Apply to scalp, up to twice a day for flares, 30 day supply 118.28 mL 11 fluocinonide (Lidex) 0.05 % external solution Apply to affected areas on the scalp, up to twice a day when flared, 30 day supply 60 mL 11 furosemide (Lasix) 20 MG tablet TAKE 1 TABLET BY MOUTH IN THE MORNING 100 tablet 3 insulin pen needle (BD Pen Needle Shakira U/F) 32G x 4 mm misc Inject 1 each under the skin in the morning and 1 each in the evening and 1 each before bedtime. USE DIRECTED DAILY. 300 each 3 levothyroxine (Synthroid, Levoxyl) 50 MCG tablet TAKE 1 TABLET BY MOUTH IN THE MORNING ON AN EMPTY STOMACH 100 tablet 3 losartan (Cozaar) 25 MG tablet Take 1 tablet (25 mg) by mouth Daily 90 tablet 3 NovoLOG FLEXPEN 100 UNIT/ML pen INJECT 5 (FIVE) UNITS SUBCUTANEOUSLY TWICE DAILY (IN THE MORNING and IN THE EVENING) WITH MEALS 15 mL 11 OneTouch Verio test strip use to test BLOOD SUGAR THREE TIMES DAILY 100 each 11 traMADol (Ultram) 50 MG tablet Take 1 tablet (50 mg) by mouth every 4 (four) hours if needed for severe pain 180 tablet 0 Tresiba FlexTouch 200 UNIT/ML injection INJECT 30 UNITS SUBCUTANEOUSLY AT BEDTIME 13.5 mL 3 No current facility-administered medications for this visit. Review of Systems Constitutional: Negative for chills, fatigue, fever and unexpected weight change. Respiratory: Positive for shortness of breath. Negative for cough. No change Cardiovascular: Negative for chest pain. Gastrointestinal: Negative for abdominal pain, blood in stool, constipation, diarrhea, nausea and vomiting. Some reflux Genitourinary: Negative for dysuria, enuresis, frequency and hematuria. Musculoskeletal: Negative for back pain. Neurological: Negative for dizziness, tremors, syncope, facial asymmetry and speech difficulty. Psychiatric/Behavioral: Negative for agitation, behavioral problems, confusion and dysphoric mood. The patient is not nervous/anxious. List of current healthcare providers: Patient Care Team: Bautista Thayer MD as PCP - General (Family Medicine) Medicare Annual Visit Over the past 2 weeks, how often have you been bothered by any of the following problems? Little interest or pleasure in doing things: Not at all Feeling down, depressed, or hopeless: Not at all Patient Health Questionnaire-2 Score: 0 Shannon Fall Risk History of Falling, Immediate or Within 3 Months: No Health Risk Assessment Form Do you need help eating, bathing, using the toilet, dressing, or getting around your home?: No Can you prepare your own meals?: Yes Can you do your own housework without help?: Yes Can you shop for groceries or clothes without help?: Yes Do you exercise for about 20 minutes 3 or more days a week?: Yes How confident are you that you can control and manage most of your health problems?: Very confident Can you mange your money, credit cards and accounts, pay bills and taxes?: Yes Vision Screening: Yes, no gross abnormalities Hearing Screening: Yes, no gross abnormalities Cognitive Screening Self Assessment: No overt cognitive deficiency is apparent by direct observation Three Word Registration: Leader, Season, Table Clock Drawing: Normal Clock - 2 Three Word Recall: All 3 words correct - 3 Total Score (0-5 Points): 5 Pain Assessment Pain Score: 0 - No pain Advance Care Planning Do you have a living will?: No Do you have a medical power of attorney general?: No Objective : BP 128/78 Pulse 72 Ht 4' 11 Wt 177 lb SpO2 97% BMI 35.75 kg/m No results found. Physical Exam Constitutional: General: She is not in acute distress. Appearance: Normal appearance. HENT: Head: Normocephalic. Neck: Vascular: No carotid bruit. Cardiovascular: Rate and Rhythm: Normal rate and regular rhythm. Heart sounds: Murmur heard. Pulmonary: Effort: Pulmonary effort is normal. No respiratory distress. Breath sounds: Normal breath sounds. Neurological: General: No focal deficit present. Mental Status: She is alert and oriented to person, place, and time. Psychiatric: Mood and Affect: Mood normal. Office Visit on 05/16/2024 Component Date Value Ref Range Status Hemoglobin A1C 05/16/2024 7.7 Final Assessment/Plan : The following health maintenance schedule was reviewed with the patient and provided in printed form in the after visit summary: Health Maintenance Topic Date Due Diabetes: Urine Protein Screening 07/23/2024 Diabetes: Hemoglobin A1C 08/14/2024 Diabetes: Retinopathy Screening 01/17/2025 Influenza Vaccine Completed Pneumococcal Vaccine: 65+ Years Completed Advance Care Planning Patient willing to discuss ACP. If in place, renew periodically. If not in place, recommend obtaining ACP. Assessment/Plan Problem List Items Addressed This Visit Essential hypertension (CMS/HCC) Narrative & Impression The [address] [address] Cardiology Report Signed Patient: WILLIE ESPINOSA MR#: [id number] : 1940 Acct:[id number] Age/Sex: 83 / F ADM Date: 11/23/23 Loc: CARD Attending Dr: BAUTISTA THAYER Ordering Physician: BAUTISTA THAYER Date of Service: 11/23/23 Procedure(s): CA echo doppler complete Accession Number(s): [id number] cc: BAUTISTA THAYER Patient Name: WILLIE ESPINOSA MR#: [id number] : 1940 Exam Date: 11/23/2023 Ordering Doctor: DR BAUTISTA THAYER M.D. ECHOCARDIOGRAM REPORT PROCEDURE: CA ECHO DOPPLER COMPLETE INDICATIONS: Murmur, hypertension, diabetes, h/o colon cancer, h/o lung cancer (left lower lobe removed) COMPARISON: None. DESCRIPTION: COMPLETE ECHOCARDIOGRAM Real-time transthoracic echocardiography with 2D, M-mode, spectral and color flow Doppler performed. QUALITY: Technical quality was good. LEFT VENTRICLE: Normal chamber size. Mild concentric left ventricular hypertrophy. LV EF: Global left ventricular systolic function is hyperdynamic; visually estimated ejection fraction is 65 to 70%. No wall motion abnormalities. DIASTOLIC: Grade II diastolic dysfunction. ATRIAL SEPTUM: Visually appears intact. LEFT ATRIUM: Moderate dilatation. RIGHT ATRIUM: Mild dilatation. RIGHT VENTRICLE: Normal chamber size. Normal right ventricular systolic function. TRICUSPID VALVE: Normal mobility and thickness. No stenosis with mild regurgitation. No evidence of pulmonary hypertension. RVSP 29 mmHg MITRAL VALVE: Normal mobility and thickness. No evidence of mitral valve stenosis. Moderate mitral annular calcification. Mild mitral regurgitation. AORTIC VALVE: Normal trileaflet appearance. Mildly calcified aortic valve. Normal leaflet mobility. No evidence of aortic valve stenosis. No aortic regurgitation. AORTIC ROOT: Normal diameter and appearance. PULMONIC VALVE: Normal thickness and mobility. No stenosis. Trivial regurgitation. PERICARDIUM: Anterior free space; trivial effusion versus fat pad. IVC: Collapses with inspirations. CONCLUSION: 1. Global left ventricular systolic function is hyperdynamic; visually estimated ejection fraction is 65 to 70% 2. Mild left ventricular hypertrophy 3. Normal right ventricular size and systolic function 4. Biatrial enlargement 5. Grade 2 diastolic dysfunction 6. Mild tricuspid regurgitation 7. Mild mitral regurgitation 8. 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 (CMS/HCC) Relevant Medications Continuous Glucose Sensor (FreeStyle Ivy 2 Sensor) misc Other Relevant Orders POCT Glycated hemoglobin, total (Completed) Medicare annual wellness visit, subsequent Colonoscopy every 10 years or Cologuard every 3 years ages 50-75 Flu Vaccine yearly Pneumovax and Prevnar Mammo yearly for women and PSA yearly for men Labs/Screening yearly to rule out Diabetes, Chronic Kidney disease and liver disease Hepatitis Screen forat risk populations Shingles vaccine after 65 if indicated Tetanus Vaccine every 10 years Lipids yearly under the age of 75 If Smoking history: one time CT scan of chest and Ultrasound of Aorta to screen for Anuerysm Other Visit Diagnoses Routine general medical examination at health care facility - Primary Orders Placed This Encounter Procedures POCT Glycated hemoglobin, total Electronically signed by Bautista Thayer MD on May 16, 2024 documented in this encounter [facility] 04-09-2024 History of Present illness Narrative Associated Problem(s): Cellulitis of left upper extremity Add Probiotic to help replenish the good bacteria that are destroyed by the Antibiotics Florastor Florajen Align or try Activia in Yogurt Probiotics reduce the risk of antibiotic induced diarrhea Images from the original note were not included. HPI Laceration Additional comments: Arm possible infected Last edited by Britni Aguayo MA on 04/09/2024 8:17 AM. Subjective Patient ID: Willie Espinosa is a 84 y.o. female who presents for Laceration (Arm possible infected ). HPI Current Outpatient Medications on File Prior to [...] milk THREE TIMES DAILY 270 tablet 1 Continuous Blood Gluc Nutrition Teacher (SendinBlue Ivy 2 [place]) device USE DIRECTED DAILY FOR 365 DAYS Continuous Glucose Sensor (FreeStyle Ivy 2 Sensor) misc Inject 1 Device under the skin every 14 (fourteen) days 6 each 3 Elastic Bandages & Supports (Post-OP Shoe/Soft Top Women) misc Apply the shoe daily, use until foot is healed 1 each 0 ergocalciferol (Vitamin D2) 1.25 MG (53765 UT) capsule Take 1 capsule (1.25 mg) by mouth 1 (one) time per week 12 capsule 3 Fluocinolone Acetonide Scalp (fluocinolone) 0.01 % oil Apply to scalp, up to twice a day for flares, 30 day supply 118.28 mL 11 fluocinonide (Lidex) 0.05 % external solution Apply to affected areas on the scalp, up to twice a day when flared, 30 day supply 60 mL 11 furosemide (Lasix) 20 MG tablet TAKE 1 TABLET BY MOUTH IN THE MORNING 100 tablet 3 insulin pen needle (BD Pen Needle Shakira U/F) 32G x 4 mm misc Inject 1 each under the skin in the morning and 1 each in the evening and 1 each before bedtime. USE DIRECTED DAILY. 300 each 3 levothyroxine (Synthroid, Levoxyl) 50 MCG tablet TAKE 1 TABLET BY MOUTH IN THE MORNING ON AN EMPTY STOMACH 100 tablet 3 losartan (Cozaar) 25 MG tablet Take 1 tablet (25 mg) by mouth Daily 90 tablet 3 NovoLOG FLEXPEN 100 UNIT/ML pen INJECT 5 (FIVE) UNITS SUBCUTANEOUSLY TWICE DAILY (IN THE MORNING and IN THE EVENING) WITH MEALS 15 mL 11 OneTouch Verio test strip use to test BLOOD SUGAR THREE TIMES DAILY 100 each 11 traMADol (Ultram) 50 MG tablet Take 1 tablet (50 mg) by mouth every 4 (four) hours if needed for severe pain 180 tablet 0 Tresiba FlexTouch 200 UNIT/ML injection INJECT 30 UNITS SUBCUTANEOUSLY AT BEDTIME 13.5 mL 3 [DISCONTINUED] insulin degludec (Tresiba FlexTouch) 200 UNIT/ML injection Inject 30 Units under the skin at bedtime No current facility-administered medications on file prior to visit. I have reviewed and reconciled the history and medication list with the patient today. Allergies Allergen Reactions Aspirin Other Reaction(s): makes her stomach burn Gabapentin Hallucinations Social History Tobacco Use Smoking status: Never Smokeless tobacco: Never Vaping Use Vaping status: Never Used Substance Use Topics Alcohol use: Never Drug use: Never Family History Problem Relation Name Age of Onset Cancer Mother Heart disease Mother Diabetes Father Past Medical History: Diagnosis Date Actinic keratosis Arthritis Colon cancer (CMS/HCC) CT scan of Abdomen An Approximately 1 cm calculus within the posterior aspect of the left kidney 10/07/2020 Diabetes (CMS/HCC) Hyperlipidemia (CMS/HCC) Lung cancer (CMS/HCC) Stress test: No reversible ischemia, Normal exercise test 03/02/2022 Past Surgical History: Procedure Laterality Date APPENDECTOMY CHOLECYSTECTOMY COLECTOMY colon resection HYSTERECTOMY LITHOTRIPSY LUNG REMOVAL, PARTIAL Left Left lung frontal lobe removed [place] ARTHROCENTESIS ASPIR&/INJ MAJOR JT/BURSA W/O US Right Arthrocentesis of the right knee joint TONSILLECTOMY Visit Vitals BP 124/68 Pulse 78 Ht 4' 11 Wt 177 lb SpO2 96% BMI 35.75 kg/m Smoking Status Never BSA 1.83 m Review of Systems Constitutional: Negative for chills and fever. Skin: Positive for rash. Objective Physical Exam Constitutional: Appearance: Normal appearance. Skin: Comments: 3 x 3 cm warm slight reddened area Neurological: Mental Status: She is alert. Assessment/Plan Problem List Items Addressed This Visit Cellulitis of left upper extremity - Primary Add Probiotic to help replenish the good bacteria that are destroyed by the Antibiotics Florastor Florajen Align or try Activia in Yogurt Probiotics reduce the risk of antibiotic induced diarrhea Relevant Medications cephalexin (Keflex) 500 MG capsule No follow-ups on file. Images from the original note were not included. Attached media from the original note were not included. HPI Laceration Additional comments: Arm possible infected Last edited by Britni Aguayo MA on 04/09/2024 8:17 AM. Subjective Patient ID: Willie Espinosa is a 84 y.o. female who presents for Laceration (Arm possible infected ). Pt hurt her arm possible last she caught is on a latch to her cabinet, and cut her arm . It was red, hot and now has some puss coming from it Been using peroxide and neosporin daily on the spot It is located on her lower left arm close to her elbow Current Outpatient Medications on File Prior to [...] milk THREE TIMES DAILY 270 tablet 1 Continuous Blood Gluc Nutrition Teacher (FreeStyle Ivy 2 [place]) device USE DIRECTED DAILY FOR 365 DAYS Continuous Glucose Sensor (FreeStyle Ivy 2 Sensor) misc Inject 1 Device under the skin every 14 (fourteen) days 6 each 3 Elastic Bandages & Supports (Post-OP Shoe/Soft Top Women) misc Apply the shoe daily, use until foot is healed 1 each 0 ergocalciferol (Vitamin D2) 1.25 MG (07740 UT) capsule Take 1 capsule (1.25 mg) by mouth 1 (one) time per week 12 capsule 3 Fluocinolone Acetonide Scalp (fluocinolone) 0.01 % oil Apply to scalp, up to twice a day for flares, 30 day supply 118.28 mL 11 fluocinonide (Lidex) 0.05 % external solution Apply to affected areas on the scalp, up to twice a day when flared, 30 day supply 60 mL 11 furosemide (Lasix) 20 MG tablet TAKE 1 TABLET BY MOUTH IN THE MORNING 100 tablet 3 insulin pen needle (BD Pen Needle Shakira U/F) 32G x 4 mm misc Inject 1 each under the skin in the morning and 1 each in the evening and 1 each before bedtime. USE DIRECTED DAILY. 300 each 3 levothyroxine (Synthroid, Levoxyl) 50 MCG tablet TAKE 1 TABLET BY MOUTH IN THE MORNING ON AN EMPTY STOMACH 100 tablet 3 losartan (Cozaar) 25 MG tablet Take 1 tablet (25 mg) by mouth Daily 90 tablet 3 NovoLOG FLEXPEN 100 UNIT/ML pen INJECT 5 (FIVE) UNITS SUBCUTANEOUSLY TWICE DAILY (IN THE MORNING and IN THE EVENING) WITH MEALS 15 mL 11 OneTouch Verio test strip use to test BLOOD SUGAR THREE TIMES DAILY 100 each 11 traMADol (Ultram) 50 MG tablet Take 1 tablet (50 mg) by mouth every 4 (four) hours if needed for severe pain 180 tablet 0 Tresiba FlexTouch 200 UNIT/ML injection INJECT 30 UNITS SUBCUTANEOUSLY AT BEDTIME 13.5 mL 3 [DISCONTINUED] insulin degludec (Tresiba FlexTouch) 200 UNIT/ML injection Inject 30 Units under the skin at bedtime No current facility-administered medications on file prior to visit. I have reviewed and reconciled the history and medication list with the patient today. Allergies Allergen Reactions Aspirin Other Reaction(s): makes her stomach burn Gabapentin Hallucinations Social History Tobacco Use Smoking status: Never Smokeless tobacco: Never Vaping Use Vaping status: Never Used Substance Use Topics Alcohol use: Never Drug use: Never Family History Problem Relation Name Age of Onset Cancer Mother Heart disease Mother Diabetes Father Past Medical History: Diagnosis Date Actinic keratosis Arthritis Colon cancer (CMS/HCC) CT scan of Abdomen An Approximately 1 cm calculus within the posterior aspect of the left kidney 10/07/2020 Diabetes (CMS/HCC) Hyperlipidemia (CMS/HCC) Lung cancer (CMS/HCC) Stress test: No reversible ischemia, Normal exercise test 03/02/2022 Past Surgical History: Procedure Laterality Date APPENDECTOMY CHOLECYSTECTOMY COLECTOMY colon resection HYSTERECTOMY LITHOTRIPSY LUNG REMOVAL, PARTIAL Left Left lung frontal lobe removed NH ARTHROCENTESIS ASPIR&/INJ MAJOR JT/BURSA W/O US Right Arthrocentesis of the right knee joint TONSILLECTOMY Visit Vitals Smoking Status Never Review of Systems Constitutional: Negative for chills and fever. Skin: Positive for rash. Objective Physical Exam Constitutional: Appearance: Normal appearance. Skin: Comments: Left forearm 3 cm x 3 cm Warm slight red Neurological: Mental Status: She is alert. Assessment/Plan No follow-ups on file. documented in this encounter [facility] 04-05-2024 Telephone encounter Note Sent. [facility] 04-05-2024 Miscellaneous Notes Sent. documented in this encounter [facility] 02-29-2024 History of Present illness Narrative Images from the original note were not included. Lesions: Location: nose, right cheek, left forearm, left lower leg Duration: ' quite a while' Quality: painful, itchy Modifying factors: aggravated by picking Associated symptoms: red, rough Treatments: Established patient Rash Location: scalp and ears Duration: months Severity: mild Quality: itchy Modifying Factors: better with Psoriasis shampoo Associated symptoms: white, dry, flaky Current treatments: OTC Psoriasis shampoo (seems to help, but still itchy) All pertinent medical history, medications, and allergies were reviewed. General Exam: alert, oriented to person, place, and time, normal affect, well appearing uses a cane Accompanied by daughter A focused exam completed based on patient reported problems, see below: 1. Psoriasis vulgaris (CMS/HCC) Left Ear, Right Ear, Scalp Well-marginated erythematous papules/plaques with silvery scale. Flaring today BSA 4%. The patient was informed that psoriasis is a chronic condition that can be controlled but not cured. Start Fluocinonide solution daily prn for flares, hold if clear. Ok to continue OTC Psoriasis shampoo. Start Dermasmooth oil for the ears and neck daily prn for flares, hold if clear. Instructed to contact office if psoriasis worsens or fails to improve despite treatment. fluocinonide (Lidex) 0.05 % external solution - Scalp Apply to affected areas on the scalp, up to twice a day when flared, 30 day supply Fluocinolone Acetonide Scalp (fluocinolone) 0.01 % oil - Scalp Apply to scalp, up to twice a day for flares, 30 day supply 2. Seborrheic keratosis (3) Left Lower Leg - Anterior, Left Temporal Scalp, Right Zygomatic Area Stuck on verrucous, menard-brown papules and plaques. Patient was counseled regarding these benign growths. Removal is normally not necessary, but they may be removed if they are symptomatic or for cosmetic reasons. 3. Actinic keratosis Right Ala Nasi Erythematous scaly papules Patient was counseled regarding these sun-induced growths that can develop into squamous cell carcinoma if left untreated. Discussed treatment with cryotherapy. It was emphasized that any treated lesions that fail to resolve should be re-evaluated. Cryotherapy performed today; see procedure note Diagnosis: Actinic keratosis Indication: Precancerous Location: see skin exam Consent: Verbal consent was obtained and risks were discussed, including, but not limited to risks of scarring, darker or director multimedia pigmentary changes, recurrence, incomplete removal and infection. Method: Liquid nitrogen was used to treat the lesion(s) with two 5-10 second freeze-thaw cycles. Number of lesions treated: 1 Post-procedure instructions: Instructions were given orally and in writing. The office will be contacted if the lesion fails to resolve despite treatment, or if a side effect develops such as abnormal crusting, scabbing, redness or tenderness Cryotherapy, skin lesion - Right Ala Nasi 4. Seborrheic keratosis, inflamed Left Forearm - Anterior Blackduck and brown stuck on verrucous scaly papule with surrounding erythema The patient was informed that symptomatic seborrheic keratoses are benign growths that become inflamed, itchy, tender, traumatized, caught on clothing, or bleed. Symptomatic lesions can be treated with cryotherapy or curretage. Thicker lesions treated with cryotherapy may require more than one treatment. The patient was instructed to notify the office if abnormal redness or tenderness develops at the treatment site. Cryotherapy today, see procedure note. Diagnosis: Inflamed seborrheic keratosis Indication: Inflamed Consent: Verbal consent was obtained and risks were discussed, including, but not limited to risks of scarring, darker or director multimedia pigmentary changes, recurrence, incomplete removal and infection. Method: Liquid nitrogen was used to treat the lesion(s) with two 5-10 second freeze-thaw cycles Number of lesions treated: 1 Post-procedure instructions: Instructions were given orally and in writing. The office will be contacted if the lesion fails to resolve despite treatment, or if a side effect develops such as abnormal crusting, scabbing, redness or tenderness Cryotherapy, skin lesion - Left Forearm - Anterior 5. Neoplasm of unspecified behavior of bone, soft tissue, and skin Mid Tip of Nose Blackduck pearly papule Lesion biopsy Type of biopsy: tangential Informed consent: discussed and consent obtained Informed consent comment: The risks and benefits of the biopsy were discussed. Risks include but are not limited to bleeding, infection, scarring, pain, and nerve damage. An opportunity to ask questions prior to the procedure was permitted and all questions were answered. Patient was prepped and draped in usual sterile fashion: area cleansed with alcohol. Anesthesia: the lesion was anesthetized in a standard fashion Anesthetic: 1% lidocaine w/ epinephrine 1-100,000 buffered w/ 8.4% NaHCO3 Instrument used: DermaBlade Hemostasis achieved with: electrodesiccation Outcome: patient tolerated procedure well Outcome comment: The specimen was placed in a prelabeled formalin container to be sent for pathology Post-procedure details: sterile dressing applied and wound care instructions given Post-procedure details comment: Emphasized need to contact clinic for any signs of infection, uncontrollable bleeding, or complications. Dressing type: bandage Additional details: Photo taken Amount of lidocaine used: 0.5 cc Specimen A - Dermatopathology exam Differential Diagnosis: BCC vs angiofibroma Check Margins: No Size of lesion: 0.5 x 0.5 cm Next Visit: pending biopsy results documented in this encounter [facility] 02-21-2024 Telephone encounter Note $20.00 copay [facility] 02-21-2024 Miscellaneous Notes $20.00 copay documented in this encounter [facility] 02-06-2024 History of Present illness Narrative Associated Problem(s): History of COVID-19 Patient had last March Patient inquires about new vaccine Has immunity Associated Problem(s): Uncontrolled type 2 diabetes mellitus with hypoglycemia (CMS/HCC) No Tobacco use Follow ADA 1800 diet low carbohydrate Continue Med Compliance Goal LDL less than 100 Goal BP 130/80 Goal HgbA1c < 7.0% Monitor Feet, monitor for infection Needs Exercise Yearly eye exams Prior to your visit today we reviewed your chart and outlined testing and treatment needed for your care. Reviewed poissble complications of diabetes including, loss of vision, kidney failure and increased risk of heart attacks and stroke. We made recommendations on how to control your blood sugars, and minimize your risk of these complications. We discussed your current barriers to a healthy living and importance of healthy diet and exercise. Associated Problem(s): Fall at home S/p fall at hit lip Needs PT Patient was getting off bed and hit arm and fall. Had some dizziness Images from the original note were not included. HPI Diabetes Additional comments: Last A1c was 7.7 Last edited by Britni Aguayo MA on 02/06/2024 8:01 AM. Subjective Patient ID: Willie Espinosa is a 83 y.o. female who presents for Diabetes (Last A1c was 7.7). Pt sugars are still up and down Had eye exam last week with Dr. Kevyn Cooper She presents for her follow-up diabetic visit. She has type 2 diabetes mellitus. No MedicAlert identification noted. The initial diagnosis of diabetes was made 5 years ago. Her disease course has been worsening. Pertinent negatives for hypoglycemia include no confusion, dizziness, nervousness/anxiousness, seizures, speech difficulty or tremors. There are no diabetic associated symptoms. Pertinent negatives for diabetes include no chest pain, no fatigue, no polyphagia, no polyuria and no weakness. There are no hypoglycemic complications. Symptoms are worsening. Diabetic complications include peripheral neuropathy. Pertinent negatives for diabetic complications include no heart disease. Risk factors for coronary artery disease include diabetes mellitus and hypertension. Current diabetic treatment includes intensive insulin program. She is compliant with treatment all of the time. Her weight is stable. She is following a diabetic diet. She has not had a previous visit with a dietitian. She participates in exercise daily. There is no change in her home blood glucose trend. An KILO inhibitor/angiotensin II receptor reyna is being taken. She does not see a table inspector.Eye exam is current. Current Outpatient Medications on File Prior to Visit Medication Sig Dispense Refill [DISCONTINUED] Continuous Glucose Sensor (FreeStyle Ivy 2 Sensor) misc USE 1 SENSOR EVERY 14 DAYS acetaminophen (Tylenol) 500 MG tablet Take 500 [...] milk THREE TIMES DAILY 270 tablet 1 Continuous Blood Gluc Nutrition Teacher (FreeStyle Ivy 2 [place]) device USE DIRECTED DAILY FOR 365 DAYS Elastic Bandages & Supports (Post-OP Shoe/Soft Top Women) misc Apply the shoe daily, use until foot is healed 1 each 0 ergocalciferol (Vitamin D2) 1.25 MG (96188 UT) capsule Take 1 capsule (1.25 mg) by mouth 1 (one) time per week 12 capsule 3 furosemide (Lasix) 20 MG tablet TAKE 1 TABLET BY MOUTH IN THE MORNING 100 tablet 3 insulin degludec (Tresiba FlexTouch) 200 UNIT/ML injection Inject 30 Units under the skin at bedtime insulin pen needle (BD Pen Needle Shakira U/F) 32G x 4 mm misc Inject 1 each under the skin in the morning and 1 each in the evening and 1 each before bedtime. USE DIRECTED DAILY. 300 each 3 levothyroxine (Synthroid, Levoxyl) 50 MCG tablet TAKE 1 TABLET BY MOUTH IN THE MORNING ON AN EMPTY STOMACH 100 tablet 3 losartan (Cozaar) 25 MG tablet Take 1 tablet (25 mg) by mouth Daily 90 tablet 3 NovoLOG FLEXPEN 100 UNIT/ML pen INJECT 5 (FIVE) UNITS SUBCUTANEOUSLY TWICE DAILY (IN THE MORNING and IN THE EVENING) WITH MEALS 15 mL 11 OneTouch Verio test strip use to test BLOOD SUGAR THREE TIMES DAILY 100 each 11 traMADol (Ultram) 50 MG tablet Take 1 tablet (50 mg) by mouth every 4 (four) hours if needed for severe pain 180 tablet 0 No current facility-administered medications on file prior to visit. I have reviewed and reconciled the history and medication list with the patient today. Allergies Allergen Reactions Aspirin Other Reaction(s): makes her stomach burn Gabapentin Hallucinations Social History Tobacco Use Smoking status: Never Smokeless tobacco: Never Vaping Use Vaping status: Never Used Substance Use Topics Alcohol use: Never Drug [...] PARTIAL Left Left lung frontal lobe removed [place] ARTHROCENTESIS ASPIR&/INJ MAJOR JT/BURSA W/O US Right Arthrocentesis of the right knee joint TONSILLECTOMY Visit Vitals BP 112/64 Pulse 65 Ht 4' 11 Wt 172 lb SpO2 96% BMI 34.74 kg/m Smoking Status Never BSA 1.8 m Review of Systems Constitutional: Negative for fatigue. Cardiovascular: Negative for chest pain. Musculoskeletal: Positive for gait problem. Had fall Uses cane Neurological: Negative for dizziness, tremors, seizures, speech difficulty and weakness. Psychiatric/Behavioral: Negative for confusion. The patient is not nervous/anxious. Endocrine: Negative for polyphagia and polyuria. Objective Physical Exam Constitutional: General: She is not in acute distress. Appearance: Normal appearance. HENT: Head: Normocephalic. Right Ear: Tympanic membrane normal. Left Ear: Tympanic membrane normal. Neck: Vascular: No carotid bruit. Cardiovascular: Rate and Rhythm: Normal rate and regular rhythm. Heart sounds: Murmur heard. Pulmonary: Effort: Pulmonary effort is normal. No respiratory distress. Breath sounds: Normal breath sounds. Musculoskeletal: General: Swelling present. Neurological: General: No focal deficit present. Mental Status: She is alert and oriented to person, place, and time. Psychiatric: Mood and Affect: Mood normal. Assessment/Plan Problem List Items Addressed This Visit Uncontrolled type 2 diabetes mellitus with hypoglycemia (CMS/HCC) No Tobacco use Follow ADA 1800 diet low carbohydrate Continue Med Compliance Goal LDL less than 100 Goal BP 130/80 Goal HgbA1c < 7.0% Monitor Feet, monitor for infection Needs Exercise Yearly eye exams Prior to your visit today we reviewed your chart and outlined testing and treatment needed for your care. Reviewed poissble complications of diabetes including, loss of vision, kidney failure and increased risk of heart attacks and stroke. We made recommendations on how to control your blood sugars, and minimize your risk of these complications. We discussed your current barriers to a healthy living and importance of healthy diet and exercise. Relevant Medications Continuous Glucose Sensor (FreeStyle Ivy 2 Sensor) misc Other Relevant Orders POCT Glycated hemoglobin, total (Completed) Fall at home - Primary S/p fall at hit lip Needs PT Patient was getting off bed and hit arm and fall. Had some dizziness History of COVID-19 Patient had last March Patient inquires about new vaccine Other Visit Diagnoses Encounter for vaccination Relevant Orders Influenza, high-dose seasonal, quadrivalent, PF (DHB577) (Fluzone High Dose [place] 0.7mL dose) (Completed) No follow-ups on file. documented in this encounter [facility] 06-08-2023 History of Present illness Narrative HPI Edema Additional comments: Top [...] chew. 21 capsule 1 Continuous Blood Gluc Nutrition Teacher (FreeStyle Ivy 2 [place]) device USE DIRECTED DAILY FOR 365 DAYS Continuous Blood Gluc Sensor (FreeStyle Ivy 2 Sensor) misc USE 1 SENSOR EVERY 14 DAYS ergocalciferol (Vitamin D2) 1.25 MG (81656 UT) capsule Take 1 capsule (1.25 mg) [...] PARTIAL Left Left lung frontal lobe removed [place] ARTHROCENTESIS ASPIR&/INJ MAJOR JT/BURSA W/O US Right [...] of insulin, unspecified laterality, unspecified retinopathy severity ([facility]/HCC) - insulin pen needle (BD Pen Needle [...] neuropathy associated with type 2 diabetes mellitus ([facility]) Advised pt she cannot take the Gabapentin [...] diffuse otitis externa of both ears - [id number] (Cortisporin) 3.5-91624-9 otic suspension; Administer 3 drops into each [...] Appointment As Scheduled. documented in this encounter [facility] Healthcare Evaluation note Diagnosis Type 2 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, with long-term current use of insulin, unspecified laterality, unspecified retinopathy severity ([facility]/HCC)- Primary Diabetic autonomic neuropathy associated with type 2 diabetes mellitus (CMS/HCC) Type II or unspecified type diabetes mellitus with neurological manifestations, not stated as uncontrolled Left foot pain Pain in soft tissues of limb Acute left ankle pain Acute diffuse otitis externa of both ears documented in this encounter [facility] HealthcareEvaluation note* Diagnosis Diabetic autonomic neuropathy associated with type 2 diabetes mellitus (CMS/HCC)- Primary Type II or unspecified type diabetes mellitus with neurological manifestations, not stated as uncontrolled Edema, unspecified type Degeneration of lumbar intervertebral disc Degeneration of lumbar or lumbosacral intervertebral disc Vitamin D deficiency Diabetic nephropathy associated with type 2 diabetes mellitus (HCC) (CMS/HCC) Morbid obesity (CMS/HCC) Morbid obesity 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 insipidus Malignant tumor of sigmoid colon ([facility]/HCC) Malignant neoplasm of sigmoid colon Stage 3a chronic kidney disease (HCC) ([facility]/HCC) Stage 3 chronic kidney disease, unspecified whether stage 3a or 3b CKD (HCC) ([facility]/HCC)- Primary 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 insipidus Acquired hypothyroidism ([facility]/HCC) Unspecified hypothyroidism 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, unspecified laterality (CMS/HCC) Diabetic nephropathy associated with type 2 diabetes mellitus (HCC) ([facility]/HCC) Uncontrolled type 2 diabetes mellitus with hypoglycemia, unspecified hypoglycemia coma status ([facility]/HCC) Flu vaccine need Uncontrolled diabetes mellitus with hyperglycemia, with long-term current use of insulin ([facility]/HCC)- Primary Uncontrolled type 2 diabetes mellitus with hypoglycemia, unspecified hypoglycemia coma status ([facility]/HCC) 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 ([facility]/HCC) Stage 3a chronic kidney disease (HCC) ([facility]/HCC) Flatulence, eructation and gas pain Flatulence, eructation, and gas pain Diabetic autonomic neuropathy associated with type 2 diabetes mellitus (CMS/HCC)- Primary Type II or unspecified type diabetes mellitus with neurological manifestations, not stated as uncontrolled 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, unspecified laterality ([facility]/HCC) 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 (CMS/HCC) Uncontrolled type 2 diabetes mellitus with hypoglycemia without coma (CMS/HCC) 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CMS/HCC) Type II or unspecified type diabetes mellitus without mention of complication, not stated as uncontrolled Chest pain due to myocardial ischemia, unspecified ischemic chest pain type (CMS/HCC) Stage 3a chronic kidney disease (HCC) (CMS/HCC)- Primary Vitamin D deficiency Hypothyroidism, unspecified type (CMS/HCC) Morbid (severe) obesity due to excess calories (E66.01) Type 2 diabetes mellitus with diabetic autonomic neuropathy, with long-term current use of insulin (CMS/HCC) Body mass index [BMI] 37.0-37.9, adult (Z68.37) Diabetic nephropathy associated with type 2 diabetes mellitus (HCC) ([facility]) Closed fracture of left foot with delayed healing, subsequent encounter Diabetic nephropathy associated with type 2 diabetes mellitus (HCC) ([facility])- Primary Type 2 diabetes mellitus with diabetic autonomic neuropathy, with long-term current use of insulin ([facility]) Routine general medical examination at health care facility- Primary Routine general medical examination at a health care facility Abnormal glucose tolerance test Impaired glucose tolerance test Benign essential hypertension (CMS/[facility]) Essential hypertension, benign Medicare annual wellness visit, subsequent Mixed hyperlipidemia (CMS/[facility]) Mixed hyperlipidemia Hypothyroidism, unspecified type ([facility]) 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 ([facility]/HCC) Diabetic nephropathy associated with type 2 diabetes mellitus (HCC) ([facility]) Uncontrolled type 2 diabetes mellitus with hypoglycemia, unspecified hypoglycemia coma status ([facility]) Dizziness Dizziness and giddiness Neck pain Cervicalgia Diabetic autonomic neuropathy associated with type 2 diabetes mellitus ([facility]/HCC)- Primary Type II or unspecified type diabetes mellitus with neurological manifestations, not stated as uncontrolled Restless legs Restless legs syndrome (RLS) Edema, unspecified type Malignant neoplasm of sigmoid colon (CMS/HCC) Malignant neoplasm of sigmoid colon Atherosclerosis of aorta (CMS/HCC) Atherosclerosis of aorta Essential hypertension ([facility]/HCC) Unspecified essential hypertension Murmur, cardiac Undiagnosed cardiac murmurs Fall in home, initial encounter- Primary Uncontrolled type 2 diabetes mellitus with hypoglycemia, unspecified hypoglycemia coma status ([facility]/HCC) Encounter for vaccination History of COVID-19 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, unspecified laterality ([facility]/HCC) documented in this encounter [facility] HealthcareEvaluation note* Diagnosis Diabetic autonomic neuropathy associated with type 2 diabetes mellitus ([facility])- Primary Type II or unspecified type diabetes mellitus with neurological manifestations, not stated as uncontrolled Edema, unspecified type Degeneration of lumbar intervertebral disc Degeneration of lumbar or lumbosacral intervertebral disc Vitamin D deficiency Diabetic nephropathy associated with type 2 diabetes mellitus (HCC) ([facility]) Morbid obesity ([facility]) Morbid obesity Diabetes insipidus ([facility]) Diabetes insipidus Malignant tumor of sigmoid colon ([facility]) Malignant neoplasm of sigmoid colon Stage 3a chronic kidney disease (HCC) ([facility]) Stage 3 chronic kidney disease, unspecified whether stage 3a or 3b CKD (HCC) ([facility])- Primary Diabetes insipidus ([facility]) Diabetes insipidus Acquired hypothyroidism ([facility]) Unspecified hypothyroidism 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, unspecified laterality ([facility]) Diabetic nephropathy associated with type 2 diabetes mellitus (HCC) ([facility]) Uncontrolled type 2 diabetes mellitus with hypoglycemia, unspecified hypoglycemia coma status ([facility]) Flu vaccine need Uncontrolled diabetes mellitus with hyperglycemia, with long-term current use of insulin ([facility])- Primary Uncontrolled type 2 diabetes mellitus with hypoglycemia, unspecified hypoglycemia coma status ([facility]) 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 ([facility]) Stage 3a chronic kidney disease (HCC) ([facility]) Flatulence, eructation and gas pain Flatulence, eructation, and gas pain Diabetic autonomic neuropathy associated with type 2 diabetes mellitus ([facility])- Primary Type II or unspecified type diabetes mellitus with neurological manifestations, not stated as uncontrolled 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, unspecified laterality ([facility]) 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 ([facility]) Uncontrolled type 2 diabetes mellitus with hypoglycemia without coma ([facility]) 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[facility]) Type II or unspecified type diabetes mellitus without mention of complication, not stated as uncontrolled Chest pain due to myocardial ischemia, unspecified ischemic chest pain type ([facility]) Stage 3a chronic kidney disease (HCC) ([facility])- Primary Vitamin D deficiency Hypothyroidism, unspecified type ([facility]) Morbid (severe) obesity due to excess calories (E66.01) Type 2 diabetes mellitus with diabetic autonomic neuropathy, with long-term current use of insulin ([facility]) Body mass index [BMI] 37.0-37.9, adult (Z68.37) Diabetic nephropathy associated with type 2 diabetes mellitus (HCC) ([facility]) Closed fracture of left foot with delayed healing, subsequent encounter Diabetic nephropathy associated with type 2 diabetes mellitus (HCC) ([facility])- Primary Type 2 diabetes mellitus with diabetic autonomic neuropathy, with long-term current use of insulin ([facility]) Routine general medical examination at health care facility- Primary Routine general medical examination at a health care facility Abnormal glucose tolerance test Impaired glucose tolerance test Benign essential hypertension ([facility]) Essential hypertension, benign Medicare annual wellness visit, subsequent Mixed hyperlipidemia ([facility]) Mixed hyperlipidemia Hypothyroidism, unspecified type ([facility]) 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 ([facility]) Diabetic nephropathy associated with type 2 diabetes mellitus (HCC) ([facility]) Uncontrolled type 2 diabetes mellitus with hypoglycemia, unspecified hypoglycemia coma status ([facility]) Dizziness Dizziness and giddiness Neck pain Cervicalgia Diabetic autonomic neuropathy associated with type 2 diabetes mellitus ([facility])- Primary Type II or unspecified type diabetes mellitus with neurological manifestations, not stated as uncontrolled Restless legs Restless legs syndrome (RLS) Edema, unspecified type Malignant neoplasm of sigmoid colon ([facility]) Malignant neoplasm of sigmoid colon Atherosclerosis of aorta ([facility]) Atherosclerosis of aorta Essential hypertension ([facility]) Unspecified essential hypertension Murmur, cardiac Undiagnosed cardiac murmurs Fall in home, initial encounter- Primary Uncontrolled type 2 diabetes mellitus with hypoglycemia, unspecified hypoglycemia coma status ([facility]) Encounter for vaccination History of COVID-19 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, unspecified laterality ([facility]) Psoriasis vulgaris ([facility])- Primary Other psoriasis Seborrheic keratosis Actinic keratosis Seborrheic keratosis, inflamed Neoplasm of unspecified behavior of bone, soft tissue, and skin documented in this encounter [facility]Evaluation note* Diagnosis Diabetic autonomic neuropathy associated with type 2 diabetes mellitus ([facility])- Primary Type II or unspecified type diabetes mellitus with neurological manifestations, not stated as uncontrolled Edema, unspecified type Degeneration of lumbar intervertebral disc Degeneration of lumbar or lumbosacral intervertebral disc Vitamin D deficiency Diabetic nephropathy associated with type 2 diabetes mellitus (HCC) ([facility]) Morbid obesity ([facility]) Morbid obesity 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 insipidus Malignant tumor of sigmoid colon ([facility]/HCC) Malignant neoplasm of sigmoid colon Stage 3a chronic kidney disease (HCC) ([facility]/HCC) Stage 3 chronic kidney disease, unspecified whether stage 3a or 3b CKD (HCC) ([facility])- Primary Diabetes insipidus ([facility]) Diabetes insipidus Acquired hypothyroidism ([facility]) Unspecified hypothyroidism 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, unspecified laterality ([facility]) Diabetic nephropathy associated with type 2 diabetes mellitus (HCC) ([facility]) Uncontrolled type 2 diabetes mellitus with hypoglycemia, unspecified hypoglycemia coma status ([facility]) Flu vaccine need Uncontrolled diabetes mellitus with hyperglycemia, with long-term current use of insulin ([facility])- Primary Uncontrolled type 2 diabetes mellitus with hypoglycemia, unspecified hypoglycemia coma status ([facility]) 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 ([facility]) Stage 3a chronic kidney disease (HCC) ([facility]) Flatulence, eructation and gas pain Flatulence, eructation, and gas pain Diabetic autonomic neuropathy associated with type 2 diabetes mellitus ([facility])- Primary Type II or unspecified type diabetes mellitus with neurological manifestations, not stated as uncontrolled 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, unspecified laterality ([facility]) 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 ([facility]) Uncontrolled type 2 diabetes mellitus with hypoglycemia without coma ([facility]) 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[facility]) Type II or unspecified type diabetes mellitus without mention of complication, not stated as uncontrolled Chest pain due to myocardial ischemia, unspecified ischemic chest pain type ([facility]) Stage 3a chronic kidney disease (HCC) ([facility])- Primary Vitamin D deficiency Hypothyroidism, unspecified type ([facility]) Morbid (severe) obesity due to excess calories (E66.01) Type 2 diabetes mellitus with diabetic autonomic neuropathy, with long-term current use of insulin ([facility]) Body mass index [BMI] 37.0-37.9, adult (Z68.37) Diabetic nephropathy associated with type 2 diabetes mellitus (HCC) ([facility]) Closed fracture of left foot with delayed healing, subsequent encounter Diabetic nephropathy associated with type 2 diabetes mellitus (HCC) ([facility])- Primary Type 2 diabetes mellitus with diabetic autonomic neuropathy, with long-term current use of insulin ([facility]) Routine general medical examination at health care facility- Primary Routine general medical examination at a health care facility Abnormal glucose tolerance test Impaired glucose tolerance test Benign essential hypertension ([facility]) Essential hypertension, benign Medicare annual wellness visit, subsequent Mixed hyperlipidemia ([facility]) Mixed hyperlipidemia Hypothyroidism, unspecified type ([facility]) 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 ([facility]) Diabetic nephropathy associated with type 2 diabetes mellitus (HCC) ([facility]) Uncontrolled type 2 diabetes mellitus with hypoglycemia, unspecified hypoglycemia coma status ([facility]) Dizziness Dizziness and giddiness Neck pain Cervicalgia Diabetic autonomic neuropathy associated with type 2 diabetes mellitus ([facility])- Primary Type II or unspecified type diabetes mellitus with neurological manifestations, not stated as uncontrolled Restless legs Restless legs syndrome (RLS) Edema, unspecified type Malignant neoplasm of sigmoid colon ([facility]) Malignant neoplasm of sigmoid colon Atherosclerosis of aorta ([facility]) Atherosclerosis of aorta Essential hypertension ([facility]) Unspecified essential hypertension Murmur, cardiac Undiagnosed cardiac murmurs Fall in home, initial encounter- Primary Uncontrolled type 2 diabetes mellitus with hypoglycemia, unspecified hypoglycemia coma status ([facility]) Encounter for vaccination History of COVID-19 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, unspecified laterality ([facility]) Uncontrolled type 2 diabetes mellitus with hypoglycemia, unspecified hypoglycemia coma status ([facility]) documented in this encounter [facility]* Diagnosis Diabetic autonomic neuropathy associated with type 2 diabetes mellitus ([facility])- Primary Type II or unspecified type diabetes mellitus with neurological manifestations, not stated as uncontrolled Edema, unspecified type Degeneration of lumbar intervertebral disc Degeneration of lumbar or lumbosacral intervertebral disc Vitamin D deficiency Diabetic nephropathy associated with type 2 diabetes mellitus (HCC) ([facility]) Morbid obesity ([facility]) Morbid obesity Diabetes insipidus ([facility]) Diabetes insipidus Malignant tumor of sigmoid colon ([facility]/HCC) Malignant neoplasm of sigmoid colon Stage 3a chronic kidney disease (HCC) ([facility]) Stage 3 chronic kidney disease, unspecified whether stage 3a or 3b CKD (HCC) ([facility])- Primary Diabetes insipidus ([facility]) Diabetes insipidus Acquired hypothyroidism ([facility]) Unspecified hypothyroidism 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, unspecified laterality ([facility]/HCC) Diabetic nephropathy associated with type 2 diabetes mellitus (HCC) ([facility]) Uncontrolled type 2 diabetes mellitus with hypoglycemia, unspecified hypoglycemia coma status ([facility]) Flu vaccine need Uncontrolled diabetes mellitus with hyperglycemia, with long-term current use of insulin ([facility])- Primary Uncontrolled type 2 diabetes mellitus with hypoglycemia, unspecified hypoglycemia coma status ([facility]/HCC) 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 ([facility]) Stage 3a chronic kidney disease (HCC) ([facility]) Flatulence, eructation and gas pain Flatulence, eructation, and gas pain Diabetic autonomic neuropathy associated with type 2 diabetes mellitus ([facility])- Primary Type II or unspecified type diabetes mellitus with neurological manifestations, not stated as uncontrolled 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, unspecified laterality ([facility]) 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 ([facility]) Uncontrolled type 2 diabetes mellitus with hypoglycemia without coma ([facility]) 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[facility]) Type II or unspecified type diabetes mellitus without mention of complication, not stated as uncontrolled Chest pain due to myocardial ischemia, unspecified ischemic chest pain type ([facility]) Stage 3a chronic kidney disease (HCC) ([facility])- Primary Vitamin D deficiency Hypothyroidism, unspecified type ([facility]) Morbid (severe) obesity due to excess calories (E66.01) Type 2 diabetes mellitus with diabetic autonomic neuropathy, with long-term current use of insulin ([facility]) Body mass index [BMI] 37.0-37.9, adult (Z68.37) Diabetic nephropathy associated with type 2 diabetes mellitus (HCC) ([facility]) Closed fracture of left foot with delayed healing, subsequent encounter Diabetic nephropathy associated with type 2 diabetes mellitus (HCC) ([facility])- Primary Type 2 diabetes mellitus with diabetic autonomic neuropathy, with long-term current use of insulin ([facility]) Routine general medical examination at health care facility- Primary Routine general medical examination at a health care facility Abnormal glucose tolerance test Impaired glucose tolerance test Benign essential hypertension ([facility]) Essential hypertension, benign Medicare annual wellness visit, subsequent Mixed hyperlipidemia ([facility]) Mixed hyperlipidemia Hypothyroidism, unspecified type ([facility]) 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 ([facility]) Diabetic nephropathy associated with type 2 diabetes mellitus (HCC) ([facility]/HCC) Uncontrolled type 2 diabetes mellitus with hypoglycemia, unspecified hypoglycemia coma status ([facility]/HCC) Dizziness Dizziness and giddiness Neck pain Cervicalgia Diabetic autonomic neuropathy associated with type 2 diabetes mellitus (CMS/HCC)- Primary Type II or unspecified type diabetes mellitus with neurological manifestations, not stated as uncontrolled Restless legs Restless legs syndrome (RLS) Edema, unspecified type Malignant neoplasm of sigmoid colon (CMS/HCC) Malignant neoplasm of sigmoid colon Atherosclerosis of aorta (CMS/HCC) Atherosclerosis of aorta Essential hypertension ([facility]/HCC) Unspecified essential hypertension Murmur, cardiac Undiagnosed cardiac murmurs Fall in home, initial encounter- Primary Uncontrolled type 2 diabetes mellitus with hypoglycemia, unspecified hypoglycemia coma status ([facility]) Encounter for vaccination History of COVID-19 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, unspecified laterality ([facility]/HCC) Cellulitis of left upper extremity- Primary documented in this encounter [facility]Evaluation note* Diagnosis Diabetic autonomic neuropathy associated with type 2 diabetes mellitus ([facility]/HCC)- Primary Type II or unspecified type diabetes mellitus with neurological manifestations, not stated as uncontrolled Edema, unspecified type Degeneration of lumbar intervertebral disc Degeneration of lumbar or lumbosacral intervertebral disc Vitamin D deficiency Diabetic nephropathy associated with type 2 diabetes mellitus (HCC) ([facility]/HCC) Morbid obesity ([facility]/HCC) Morbid obesity 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 insipidus Malignant tumor of sigmoid colon (CMS/HCC) Malignant neoplasm of sigmoid colon Stage 3a chronic kidney disease (HCC) ([facility]) Stage 3 chronic kidney disease, unspecified whether stage 3a or 3b CKD (HCC) ([facility])- Primary 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 insipidus Acquired hypothyroidism ([facility]/HCC) Unspecified hypothyroidism 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, unspecified laterality ([facility]/HCC) Diabetic nephropathy associated with type 2 diabetes mellitus (HCC) ([facility]/HCC) Uncontrolled type 2 diabetes mellitus with hypoglycemia, unspecified hypoglycemia coma status ([facility]/HCC) Flu vaccine need Uncontrolled diabetes mellitus with hyperglycemia, with long-term current use of insulin ([facility])- Primary Uncontrolled type 2 diabetes mellitus with hypoglycemia, unspecified hypoglycemia coma status ([facility]/HCC) 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 ([facility]/HCC) Stage 3a chronic kidney disease (HCC) ([facility]/HCC) Flatulence, eructation and gas pain Flatulence, eructation, and gas pain Diabetic autonomic neuropathy associated with type 2 diabetes mellitus ([facility]/HCC)- Primary Type II or unspecified type diabetes mellitus with neurological manifestations, not stated as uncontrolled 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, unspecified laterality (CMS/HCC) 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 (CMS/HCC) Uncontrolled type 2 diabetes mellitus with hypoglycemia without coma ([facility]/HCC) 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[facility]) Type II or unspecified type diabetes mellitus without mention of complication, not stated as uncontrolled Chest pain due to myocardial ischemia, unspecified ischemic chest pain type (CMS/HCC) Stage 3a chronic kidney disease (HCC) ([facility])- Primary Vitamin D deficiency Hypothyroidism, unspecified type ([facility]) Morbid (severe) obesity due to excess calories (E66.01) Type 2 diabetes mellitus with diabetic autonomic neuropathy, with long-term current use of insulin ([facility]) Body mass index [BMI] 37.0-37.9, adult (Z68.37) Diabetic nephropathy associated with type 2 diabetes mellitus (HCC) ([facility]) Closed fracture of left foot with delayed healing, subsequent encounter Diabetic nephropathy associated with type 2 diabetes mellitus (HCC) ([facility])- Primary Type 2 diabetes mellitus with diabetic autonomic neuropathy, with long-term current use of insulin ([facility]) Routine general medical examination at health care facility- Primary Routine general medical examination at a health care facility Abnormal glucose tolerance test Impaired glucose tolerance test Benign essential hypertension (CMS/HCC) Essential hypertension, benign Medicare annual wellness visit, subsequent Mixed hyperlipidemia ([facility]) Mixed hyperlipidemia Hypothyroidism, unspecified type ([facility]/HCC) 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 (CMS/HCC) Diabetic nephropathy associated with type 2 diabetes mellitus (HCC) ([facility]) Uncontrolled type 2 diabetes mellitus with hypoglycemia, unspecified hypoglycemia coma status ([facility]) Dizziness Dizziness and giddiness Neck pain Cervicalgia Diabetic autonomic neuropathy associated with type 2 diabetes mellitus ([facility]/HCC)- Primary Type II or unspecified type diabetes mellitus with neurological manifestations, not stated as uncontrolled Restless legs Restless legs syndrome (RLS) Edema, unspecified type Malignant neoplasm of sigmoid colon (CMS/HCC) Malignant neoplasm of sigmoid colon Atherosclerosis of aorta ([facility]/HCC) Atherosclerosis of aorta Essential hypertension ([facility]/HCC) Unspecified essential hypertension Murmur, cardiac Undiagnosed cardiac murmurs Fall in home, initial encounter- Primary Uncontrolled type 2 diabetes mellitus with hypoglycemia, unspecified hypoglycemia coma status ([facility]) Encounter for vaccination History of COVID-19 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, unspecified laterality ([facility]) Cellulitis of left upper extremity- Primary Routine general medical examination at health care facility- Primary Routine general medical examination at a health care facility Uncontrolled type 2 diabetes mellitus with hypoglycemia, unspecified hypoglycemia coma status ([facility]) Vitamin D deficiency Medicare annual wellness visit, subsequent Essential hypertension ([facility]) Unspecified essential hypertension documented in this encounter [facility] HealthcareEvaluation note* Diagnosis Diabetic autonomic neuropathy associated with type 2 diabetes mellitus ([facility])- Primary Type II or unspecified type diabetes mellitus with neurological manifestations, not stated as uncontrolled Edema, unspecified type Degeneration of lumbar intervertebral disc Degeneration of lumbar or lumbosacral intervertebral disc Vitamin D deficiency Diabetic nephropathy associated with type 2 diabetes mellitus (HCC) ([facility]) Morbid obesity ([facility]) Morbid obesity Diabetes insipidus ([facility]) Diabetes insipidus Malignant tumor of sigmoid colon ([facility]) Malignant neoplasm of sigmoid colon Stage 3a chronic kidney disease (HCC) ([facility]) Stage 3 chronic kidney disease, unspecified whether stage 3a or 3b CKD (HCC) ([facility])- Primary Diabetes insipidus ([facility]) Diabetes insipidus Acquired hypothyroidism ([facility]) Unspecified hypothyroidism 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, unspecified laterality ([facility]) Diabetic nephropathy associated with type 2 diabetes mellitus (HCC) ([facility]) Uncontrolled type 2 diabetes mellitus with hypoglycemia, unspecified hypoglycemia coma status ([facility]) Flu vaccine need Uncontrolled diabetes mellitus with hyperglycemia, with long-term current use of insulin ([facility])- Primary Uncontrolled type 2 diabetes mellitus with hypoglycemia, unspecified hypoglycemia coma status ([facility]) 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 ([facility]) Stage 3a chronic kidney disease (HCC) ([facility]) Flatulence, eructation and gas pain Flatulence, eructation, and gas pain Diabetic autonomic neuropathy associated with type 2 diabetes mellitus ([facility])- Primary Type II or unspecified type diabetes mellitus with neurological manifestations, not stated as uncontrolled 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, unspecified laterality ([facility]) 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 ([facility]) Uncontrolled type 2 diabetes mellitus with hypoglycemia without coma ([facility]) 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[facility]) Type II or unspecified type diabetes mellitus without mention of complication, not stated as uncontrolled Chest pain due to myocardial ischemia, unspecified ischemic chest pain type ([facility]) Stage 3a chronic kidney disease (HCC) ([facility])- Primary Vitamin D deficiency Hypothyroidism, unspecified type ([facility]) Morbid (severe) obesity due to excess calories (E66.01) Type 2 diabetes mellitus with diabetic autonomic neuropathy, with long-term current use of insulin ([facility]) Body mass index [BMI] 37.0-37.9, adult (Z68.37) Diabetic nephropathy associated with type 2 diabetes mellitus (HCC) ([facility]) Closed fracture of left foot with delayed healing, subsequent encounter Diabetic nephropathy associated with type 2 diabetes mellitus (HCC) ([facility])- Primary Type 2 diabetes mellitus with diabetic autonomic neuropathy, with long-term current use of insulin ([facility]) Routine general medical examination at health care facility- Primary Routine general medical examination at a health care facility Abnormal glucose tolerance test Impaired glucose tolerance test Benign essential hypertension ([facility]) Essential hypertension, benign Medicare annual wellness visit, subsequent Mixed hyperlipidemia ([facility]) Mixed hyperlipidemia Hypothyroidism, unspecified type ([facility]) 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 ([facility]) Diabetic nephropathy associated with type 2 diabetes mellitus (HCC) ([facility]) Uncontrolled type 2 diabetes mellitus with hypoglycemia, unspecified hypoglycemia coma status ([facility]) Dizziness Dizziness and giddiness Neck pain Cervicalgia Diabetic autonomic neuropathy associated with type 2 diabetes mellitus ([facility]/HCC)- Primary Type II or unspecified type diabetes mellitus with neurological manifestations, not stated as uncontrolled Restless legs Restless legs syndrome (RLS) Edema, unspecified type Malignant neoplasm of sigmoid colon ([facility]) Malignant neoplasm of sigmoid colon Atherosclerosis of aorta ([facility]) Atherosclerosis of aorta Essential hypertension ([facility]) Unspecified essential hypertension Murmur, cardiac Undiagnosed cardiac murmurs Fall in home, initial encounter- Primary Uncontrolled type 2 diabetes mellitus with hypoglycemia, unspecified hypoglycemia coma status ([facility]) Encounter for vaccination History of COVID-19 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, unspecified laterality ([facility]) Cellulitis of left upper extremity- Primary Routine general medical examination at health care facility- Primary Routine general medical examination at a health care facility Uncontrolled type 2 diabetes mellitus with hypoglycemia, unspecified hypoglycemia coma status ([facility]) Vitamin D deficiency Medicare annual wellness visit, subsequent Essential hypertension ([facility]) Unspecified essential hypertension Type 2 diabetes mellitus with diabetic cataract ([facility]) Type II or unspecified type diabetes mellitus with ophthalmic manifestations, not stated as uncontrolled Morbid (severe) obesity due to excess calories ([facility]) Body mass index (BMI) 35.0-35.9, adult Type 2 diabetes mellitus with unspecified diabetic retinopathy without macular edema ([facility]) Type 2 diabetes mellitus with other specified complication ([facility] Mixed hyperlipidemia ([facility]) Mixed hyperlipidemia Type 2 diabetes mellitus with diabetic autonomic (poly)neuropathy ([facility]) Type 2 diabetes mellitus with mild nonproliferative diabetic retinopathy without macular edema, unspecified eye ([facility]) Type 2 diabetes mellitus with diabetic chronic kidney disease ([facility]) Chronic kidney disease, stage 3a (HCC) ([facility]) Malignant neoplasm of sigmoid colon ([facility]) Malignant neoplasm of sigmoid colon Type 2 diabetes mellitus with diabetic neuropathy, unspecified ([facility]) alf (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 of insulin ([facility]) Basal cell carcinoma (BCC) of skin of nose documented in this encounter [facility] HealthcareEvaluation note* Diagnosis Diabetic autonomic neuropathy associated with type 2 diabetes mellitus ([facility])- Primary Type II or unspecified type diabetes mellitus with neurological manifestations, not stated as uncontrolled Edema, unspecified type Degeneration of lumbar intervertebral disc Degeneration of lumbar or lumbosacral intervertebral disc Vitamin D deficiency Diabetic nephropathy associated with type 2 diabetes mellitus (HCC) ([facility]) Morbid obesity ([facility]) Morbid obesity Diabetes insipidus ([facility]) Diabetes insipidus Malignant tumor of sigmoid colon ([facility]) Malignant neoplasm of sigmoid colon Stage 3a chronic kidney disease (HCC) ([facility]) Stage 3 chronic kidney disease, unspecified whether stage 3a or 3b CKD (HCC) ([facility])- Primary Diabetes insipidus ([facility]) Diabetes insipidus Acquired hypothyroidism ([facility]) Unspecified hypothyroidism 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, unspecified laterality ([facility]) Diabetic nephropathy associated with type 2 diabetes mellitus (HCC) ([facility]) Uncontrolled type 2 diabetes mellitus with hypoglycemia, unspecified hypoglycemia coma status ([facility]) Flu vaccine need Uncontrolled diabetes mellitus with hyperglycemia, with long-term current use of insulin ([facility])- Primary Uncontrolled type 2 diabetes mellitus with hypoglycemia, unspecified hypoglycemia coma status ([facility]) 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 ([facility]) Stage 3a chronic kidney disease (HCC) ([facility]) Flatulence, eructation and gas pain Flatulence, eructation, and gas pain Diabetic autonomic neuropathy associated with type 2 diabetes mellitus ([facility])- Primary Type II or unspecified type diabetes mellitus with neurological manifestations, not stated as uncontrolled 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, unspecified laterality ([facility]) 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 ([facility]) Uncontrolled type 2 diabetes mellitus with hypoglycemia without coma ([facility]) 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[facility]) Type II or unspecified type diabetes mellitus without mention of complication, not stated as uncontrolled Chest pain due to myocardial ischemia, unspecified ischemic chest pain type ([facility]) Stage 3a chronic kidney disease (HCC) ([facility])- Primary Vitamin D deficiency Hypothyroidism, unspecified type ([facility]) Morbid (severe) obesity due to excess calories (E66.01) Type 2 diabetes mellitus with diabetic autonomic neuropathy, with long-term current use of insulin ([facility]) Body mass index [BMI] 37.0-37.9, adult (Z68.37) Diabetic nephropathy associated with type 2 diabetes mellitus (HCC) ([facility]) Closed fracture of left foot with delayed healing, subsequent encounter Diabetic nephropathy associated with type 2 diabetes mellitus (HCC) [facility] [facility] Primary Type 2 diabetes mellitus with diabetic autonomic neuropathy, with long-term current use of insulin ([facility]) Routine general medical examination at health care facility- Primary Routine general medical examination at a health care facility Abnormal glucose tolerance test Impaired glucose tolerance test Benign essential hypertension ([facility]) Essential hypertension, benign Medicare annual wellness visit, subsequent Mixed hyperlipidemia ([facility]) Mixed hyperlipidemia Hypothyroidism, unspecified type ([facility]) 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 ([facility]) Diabetic nephropathy associated with type 2 diabetes mellitus (HCC) ([facility]) Uncontrolled type 2 diabetes mellitus with hypoglycemia, unspecified hypoglycemia coma status (CMS/HCC) Dizziness Dizziness and giddiness Neck pain Cervicalgia Diabetic autonomic neuropathy associated with type 2 diabetes mellitus ([facility]/HCC)- Primary Type II or unspecified type diabetes mellitus with neurological manifestations, not stated as uncontrolled Restless legs Restless legs syndrome (RLS) Edema, unspecified type Malignant neoplasm of sigmoid colon (CMS/HCC) Malignant neoplasm of sigmoid colon Atherosclerosis of aorta (CMS/HCC) Atherosclerosis of aorta Essential hypertension ([facility]/HCC) Unspecified essential hypertension Murmur, cardiac Undiagnosed cardiac murmurs Fall in home, initial encounter- Primary Uncontrolled type 2 diabetes mellitus with hypoglycemia, unspecified hypoglycemia coma status ([facility]/HCC) Encounter for vaccination History of COVID-19 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, unspecified laterality ([facility]) Cellulitis of left upper extremity- Primary Routine general medical examination at health care facility- Primary Routine general medical examination at a health care facility Uncontrolled type 2 diabetes mellitus with hypoglycemia, unspecified hypoglycemia coma status ([facility]) Vitamin D deficiency Medicare annual wellness visit, subsequent Essential hypertension ([facility]) Unspecified essential hypertension Type 2 diabetes mellitus with diabetic cataract ([facility]) Type II or unspecified type diabetes mellitus with ophthalmic manifestations, not stated as uncontrolled Morbid (severe) obesity due to excess calories ([facility]) Body mass index (BMI) 35.0-35.9, adult Type 2 diabetes mellitus with unspecified diabetic retinopathy without macular edema ([facility]/HCC) Type 2 diabetes mellitus with other specified complication ([facility]/HCC) Mixed hyperlipidemia ([facility]/HCC) Mixed hyperlipidemia Type 2 diabetes mellitus with diabetic autonomic (poly)neuropathy ([facility]/HCC) Type 2 diabetes mellitus with mild nonproliferative diabetic retinopathy without macular edema, unspecified eye ([facility]/HCC) Type 2 diabetes mellitus with diabetic chronic kidney disease ([facility]/HCC) Chronic kidney disease, stage 3a (HCC) ([facility]/HCC) Malignant neoplasm of sigmoid colon (CMS/HCC) Malignant neoplasm of sigmoid colon Type 2 diabetes mellitus with diabetic neuropathy, unspecified ([facility]/HCC) alf (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 of insulin ([facility]/HCC) [facility] defect of nose- Primary documented in this encounter [facility] HealthcareEvaluation noteNo assessment information availableAultman [facility] Work Phone: Evaluation note* Diagnosis Diabetic autonomic neuropathy associated with type 2 diabetes mellitus (CMS/HCC)- Primary Type II or unspecified type diabetes mellitus with neurological manifestations, not stated as uncontrolled Edema, unspecified type Degeneration of lumbar intervertebral disc Degeneration of lumbar or lumbosacral intervertebral disc Vitamin D deficiency Diabetic nephropathy associated with type 2 diabetes mellitus (HCC) ([facility]) Morbid obesity ([facility]) Morbid obesity Diabetes insipidus ([facility]) Diabetes insipidus Malignant tumor of sigmoid colon ([facility]) Malignant neoplasm of sigmoid colon Stage 3a chronic kidney disease (HCC) ([facility]) Stage 3 chronic kidney disease, unspecified whether stage 3a or 3b CKD (HCC) ([facility])- Primary Diabetes insipidus ([facility]) Diabetes insipidus Acquired hypothyroidism ([facility]) Unspecified hypothyroidism 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, unspecified laterality ([facility]) Diabetic nephropathy associated with type 2 diabetes mellitus (HCC) ([facility]) Uncontrolled type 2 diabetes mellitus with hypoglycemia, unspecified hypoglycemia coma status ([facility]) Flu vaccine need Uncontrolled diabetes mellitus with hyperglycemia, with long-term current use of insulin ([facility])- Primary Uncontrolled type 2 diabetes mellitus with hypoglycemia, unspecified hypoglycemia coma status ([facility]) 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 ([facility]) Stage 3a chronic kidney disease (HCC) ([facility]) Flatulence, eructation and gas pain Flatulence, eructation, and gas pain Diabetic autonomic neuropathy associated with type 2 diabetes mellitus ([facility])- Primary Type II or unspecified type diabetes mellitus with neurological manifestations, not stated as uncontrolled 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, unspecified laterality ([facility]) 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 ([facility]) Uncontrolled type 2 diabetes mellitus with hypoglycemia without coma ([facility]) 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[facility]) Type II or unspecified type diabetes mellitus without mention of complication, not stated as uncontrolled Chest pain due to myocardial ischemia, unspecified ischemic chest pain type ([facility]) Stage 3a chronic kidney disease (HCC) ([facility])- Primary Vitamin D deficiency Hypothyroidism, unspecified type ([facility]) Morbid (severe) obesity due to excess calories (E66.01) Type 2 diabetes mellitus with diabetic autonomic neuropathy, with long-term current use of insulin ([facility]) Body mass index [BMI] 37.0-37.9, adult (Z68.37) Diabetic nephropathy associated with type 2 diabetes mellitus (HCC) ([facility]) Closed fracture of left foot with delayed healing, subsequent encounter Diabetic nephropathy associated with type 2 diabetes mellitus (HCC) ([facility])- Primary Type 2 diabetes mellitus with diabetic autonomic neuropathy, with long-term current use of insulin ([facility]) Routine general medical examination at health care facility- Primary Routine general medical examination at a health care facility Abnormal glucose tolerance test Impaired glucose tolerance test Benign essential hypertension ([facility]) Essential hypertension, benign Medicare annual wellness visit, subsequent Mixed hyperlipidemia ([facility]) Mixed hyperlipidemia Hypothyroidism, unspecified type ([facility]) 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 ([facility]) Diabetic nephropathy associated with type 2 diabetes mellitus (HCC) ([facility]) Uncontrolled type 2 diabetes mellitus with hypoglycemia, unspecified hypoglycemia coma status ([facility]) Dizziness Dizziness and giddiness Neck pain Cervicalgia Diabetic autonomic neuropathy associated with type 2 diabetes mellitus ([facility])- Primary Type II or unspecified type diabetes mellitus with neurological manifestations, not stated as uncontrolled Restless legs Restless legs syndrome (RLS) Edema, unspecified type Malignant neoplasm of sigmoid colon ([facility]) Malignant neoplasm of sigmoid colon Atherosclerosis of aorta ([facility]) Atherosclerosis of aorta Essential hypertension ([facility]) Unspecified essential hypertension Murmur, cardiac Undiagnosed cardiac murmurs Fall in home, initial encounter- Primary Uncontrolled type 2 diabetes mellitus with hypoglycemia, unspecified hypoglycemia coma status ([facility]) Encounter for vaccination History of COVID-19 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, unspecified laterality ([facility]) Cellulitis of left upper extremity- Primary Routine general medical examination at health care facility- Primary Routine general medical examination at a health care facility Uncontrolled type 2 diabetes mellitus with hypoglycemia, unspecified hypoglycemia coma status ([facility]) Vitamin D deficiency Medicare annual wellness visit, subsequent Essential hypertension ([facility]) Unspecified essential hypertension Type 2 diabetes mellitus with diabetic cataract ([facility]) Type II or unspecified type diabetes mellitus with ophthalmic manifestations, not stated as uncontrolled Morbid (severe) obesity due to excess calories ([facility]) Body mass index (BMI) 35.0-35.9, adult Type 2 diabetes mellitus with unspecified diabetic retinopathy without macular edema ([facility]) Type 2 diabetes mellitus with other specified complication Mixed hyperlipidemia (CMS/HCC) Mixed hyperlipidemia Type 2 diabetes mellitus with diabetic autonomic (poly)neuropathy Type 2 diabetes mellitus with mild nonproliferative diabetic retinopathy without macular edema, unspecified eye (CMS/HCC) Type 2 diabetes mellitus with diabetic chronic kidney disease (CMS/HCC) Chronic kidney disease, stage 3a (HCC) ([facility]/HCC) Malignant neoplasm of sigmoid colon (CMS/HCC) Malignant neoplasm of sigmoid colon Type 2 diabetes mellitus with diabetic neuropathy, unspecified ([facility]/HCC) terminal 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 ([facility]) Mohs defect of nose- Primary Basal cell carcinoma (BCC) of skin of nose documented in this encounter [facility] HealthcareEvaluation note* Diagnosis Diabetic autonomic neuropathy associated with type 2 diabetes mellitus ([facility]/HCC)- Primary Type II or unspecified type diabetes mellitus with neurological manifestations, not stated as uncontrolled Edema, unspecified type Degeneration of lumbar intervertebral disc Degeneration of lumbar or lumbosacral intervertebral disc Vitamin D deficiency Diabetic nephropathy associated with type 2 diabetes mellitus (HCC) ([facility]/HCC) Morbid obesity ([facility]/HCC) Morbid obesity 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 insipidus Malignant tumor of sigmoid colon ([facility]/HCC) Malignant neoplasm of sigmoid colon Stage 3a chronic kidney disease (HCC) ([facility]/HCC) Stage 3 chronic kidney disease, unspecified whether stage 3a or 3b CKD (HCC) ([facility]/HCC)- Primary 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 insipidus Acquired hypothyroidism ([facility]) Unspecified hypothyroidism 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, unspecified laterality ([facility]/HCC) Diabetic nephropathy associated with type 2 diabetes mellitus (HCC) ([facility]/HCC) Uncontrolled type 2 diabetes mellitus with hypoglycemia, unspecified hypoglycemia coma status ([facility]/HCC) Flu vaccine need Uncontrolled diabetes mellitus with hyperglycemia, with long-term current use of insulin ([facility]/HCC)- Primary Uncontrolled type 2 diabetes mellitus with hypoglycemia, unspecified hypoglycemia coma status ([facility]/HCC) 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 ([facility]/HCC) Stage 3a chronic kidney disease (HCC) ([facility]/HCC) Flatulence, eructation and gas pain Flatulence, eructation, and gas pain Diabetic autonomic neuropathy associated with type 2 diabetes mellitus ([facility]/HCC)- Primary Type II or unspecified type diabetes mellitus with neurological manifestations, not stated as uncontrolled 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, unspecified laterality ([facility]) 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 ([facility]) Uncontrolled type 2 diabetes mellitus with hypoglycemia without coma ([facility]) 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[facility]) Type II or unspecified type diabetes mellitus without mention of complication, not stated as uncontrolled Chest pain due to myocardial ischemia, unspecified ischemic chest pain type ([facility]) Stage 3a chronic kidney disease (HCC) ([facility])- Primary Vitamin D deficiency Hypothyroidism, unspecified type ([facility]) Morbid (severe) obesity due to excess calories (E66.01) Type 2 diabetes mellitus with diabetic autonomic neuropathy, with long-term current use of insulin ([facility]) Body mass index [BMI] 37.0-37.9, adult (Z68.37) Diabetic nephropathy associated with type 2 diabetes mellitus (HCC) ([facility]) Closed fracture of left foot with delayed healing, subsequent encounter Diabetic nephropathy associated with type 2 diabetes mellitus (HCC) ([facility])- Primary Type 2 diabetes mellitus with diabetic autonomic neuropathy, with long-term current use of insulin ([facility]) Routine general medical examination at health care facility- Primary Routine general medical examination at a health care facility Abnormal glucose tolerance test Impaired glucose tolerance test Benign essential hypertension ([facility]) Essential hypertension, benign Medicare annual wellness visit, subsequent Mixed hyperlipidemia ([facility]) Mixed hyperlipidemia Hypothyroidism, unspecified type ([facility]) 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 ([facility]) Diabetic nephropathy associated with type 2 diabetes mellitus (HCC) ([facility]) Uncontrolled type 2 diabetes mellitus with hypoglycemia, unspecified hypoglycemia coma status ([facility]) Dizziness Dizziness and giddiness Neck pain Cervicalgia Diabetic autonomic neuropathy associated with type 2 diabetes mellitus ([facility]/HCC)- Primary Type II or unspecified type diabetes mellitus with neurological manifestations, not stated as uncontrolled Restless legs Restless legs syndrome (RLS) Edema, unspecified type Malignant neoplasm of sigmoid colon ([facility]) Malignant neoplasm of sigmoid colon Atherosclerosis of aorta ([facility]) Atherosclerosis of aorta Essential hypertension ([facility]) Unspecified essential hypertension Murmur, cardiac Undiagnosed cardiac murmurs Fall in home, initial encounter- Primary Uncontrolled type 2 diabetes mellitus with hypoglycemia, unspecified hypoglycemia coma status ([facility]) Encounter for vaccination History of COVID-19 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, unspecified laterality ([facility]/HCC) Cellulitis of left upper extremity- Primary Routine general medical examination at health care facility- Primary Routine general medical examination at a health care facility Uncontrolled type 2 diabetes mellitus with hypoglycemia, unspecified hypoglycemia coma status ([facility]/HCC) Vitamin D deficiency Medicare annual wellness visit, subsequent Essential hypertension ([facility]) Unspecified essential hypertension Type 2 diabetes mellitus with diabetic cataract ([facility]/HCC) Type II or unspecified type diabetes mellitus with ophthalmic manifestations, not stated as uncontrolled Morbid (severe) obesity due to excess calories ([facility]) Body mass index (BMI) 35.0-35.9, adult Type 2 diabetes mellitus with unspecified diabetic retinopathy without macular edema ([facility]/HCC) Type 2 diabetes mellitus with other specified complication Mixed hyperlipidemia ([facility]/HCC) Mixed hyperlipidemia Type 2 diabetes mellitus with diabetic autonomic (poly)neuropathy Type 2 diabetes mellitus with mild nonproliferative diabetic retinopathy without macular edema, unspecified eye ([facility]/HCC) Type 2 diabetes mellitus with diabetic chronic kidney disease ([facility]/HCC) Chronic kidney disease, stage 3a (HCC) ([facility]/HCC) Malignant neoplasm of sigmoid colon ([facility]/HCC) Malignant neoplasm of sigmoid colon Type 2 diabetes mellitus with diabetic neuropathy, unspecified ([facility]) alf (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 of insulin ([facility]) Basal cell carcinoma (BCC) of left side of nose- Primary Uncontrolled type 2 diabetes mellitus with hypoglycemia, unspecified hypoglycemia coma status ([facility]) 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, unspecified laterality ([facility]/HCC) Type 2 diabetes mellitus with diabetic chronic kidney disease ([facility]/HCC) Chronic kidney disease, stage 3b (HCC) ([facility]) Acquired hypothyroidism ([facility]) Unspecified hypothyroidism documented in this encounter [facility] HealthcareEvaluation note* Diagnosis Diabetic autonomic neuropathy associated with type 2 diabetes mellitus ([facility]/HCC)- Primary Type II or unspecified type diabetes mellitus with neurological manifestations, not stated as uncontrolled Edema, unspecified type Degeneration of lumbar intervertebral disc Degeneration of lumbar or lumbosacral intervertebral disc Vitamin D deficiency Diabetic nephropathy associated with type 2 diabetes mellitus (HCC) (CMS/HCC) Morbid obesity (CMS/HCC) Morbid obesity Diabetes insipidus (CMS/HCC) Diabetes insipidus Malignant tumor of sigmoid colon (CMS/HCC) Malignant neoplasm of sigmoid colon Stage 3a chronic kidney disease (HCC) ([facility]/HCC) Stage 3 chronic kidney disease, unspecified whether stage 3a or 3b CKD (HCC) ([facility])- Primary Diabetes insipidus ([facility]) Diabetes insipidus Acquired hypothyroidism ([facility]) Unspecified hypothyroidism 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, unspecified laterality ([facility]) Diabetic nephropathy associated with type 2 diabetes mellitus (HCC) ([facility]) Uncontrolled type 2 diabetes mellitus with hypoglycemia, unspecified hypoglycemia coma status ([facility]) Flu vaccine need Uncontrolled diabetes mellitus with hyperglycemia, with long-term current use of insulin ([facility])- Primary Uncontrolled type 2 diabetes mellitus with hypoglycemia, unspecified hypoglycemia coma status ([facility]) 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 ([facility]) Stage 3a chronic kidney disease (HCC) ([facility]) Flatulence, eructation and gas pain Flatulence, eructation, and gas pain Diabetic autonomic neuropathy associated with type 2 diabetes mellitus ([facility])- Primary Type II or unspecified type diabetes mellitus with neurological manifestations, not stated as uncontrolled 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, unspecified laterality ([facility]) 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 ([facility]) Uncontrolled type 2 diabetes mellitus with hypoglycemia without coma ([facility]) 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[facility]) Type II or unspecified type diabetes mellitus without mention of complication, not stated as uncontrolled Chest pain due to myocardial ischemia, unspecified ischemic chest pain type ([facility]) Stage 3a chronic kidney disease (HCC) ([facility])- Primary Vitamin D deficiency Hypothyroidism, unspecified type ([facility]) Morbid (severe) obesity due to excess calories (E66.01) Type 2 diabetes mellitus with diabetic autonomic neuropathy, with long-term current use of insulin ([facility]) Body mass index [BMI] 37.0-37.9, adult (Z68.37) Diabetic nephropathy associated with type 2 diabetes mellitus (HCC) ([facility]) Closed fracture of left foot with delayed healing, subsequent encounter Diabetic nephropathy associated with type 2 diabetes mellitus (HCC) ([facility])- Primary Type 2 diabetes mellitus with diabetic autonomic neuropathy, with long-term current use of insulin ([facility]) Routine general medical examination at health care facility- Primary Routine general medical examination at a health care facility Abnormal glucose tolerance test Impaired glucose tolerance test Benign essential hypertension ([facility]) Essential hypertension, benign Medicare annual wellness visit, subsequent Mixed hyperlipidemia ([facility] [facility] Mixed hyperlipidemia Hypothyroidism, unspecified type ([facility]) 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 ([facility]) Diabetic nephropathy associated with type 2 diabetes mellitus (HCC) ([facility]) Uncontrolled type 2 diabetes mellitus with hypoglycemia, unspecified hypoglycemia coma status ([facility]) Dizziness Dizziness and giddiness Neck pain Cervicalgia Diabetic autonomic neuropathy associated with type 2 diabetes mellitus ([facility])- Primary Type II or unspecified type diabetes mellitus with neurological manifestations, not stated as uncontrolled Restless legs Restless legs syndrome (RLS) Edema, unspecified type Malignant neoplasm of sigmoid colon ([facility]/HCC) Malignant neoplasm of sigmoid colon Atherosclerosis of aorta ([facility]) Atherosclerosis of aorta Essential hypertension ([facility]) Unspecified essential hypertension Murmur, cardiac Undiagnosed cardiac murmurs Fall in home, initial encounter- Primary Uncontrolled type 2 diabetes mellitus with hypoglycemia, unspecified hypoglycemia coma status ([facility]) Encounter for vaccination History of COVID-19 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, unspecified laterality ([facility]) Cellulitis of left upper extremity- Primary Routine general medical examination at health care facility- Primary Routine general medical examination at a health care facility Uncontrolled type 2 diabetes mellitus with hypoglycemia, unspecified hypoglycemia coma status ([facility]) Vitamin D deficiency Medicare annual wellness visit, subsequent Essential hypertension ([facility]) Unspecified essential hypertension Type 2 diabetes mellitus with diabetic cataract ([facility]) Type II or unspecified type diabetes mellitus with ophthalmic manifestations, not stated as uncontrolled Morbid (severe) obesity due to excess calories ([facility]) Body mass index (BMI) 35.0-35.9, adult Type 2 diabetes mellitus with unspecified diabetic retinopathy without macular edema ([facility]) Type 2 diabetes mellitus with other specified complication Mixed hyperlipidemia ([facility]) Mixed hyperlipidemia Type 2 diabetes mellitus with diabetic autonomic (poly)neuropathy Type 2 diabetes mellitus with mild nonproliferative diabetic retinopathy without macular edema, unspecified eye ([facility]) Type 2 diabetes mellitus with diabetic chronic kidney disease ([facility]) Chronic kidney disease, stage 3a (HCC) ([facility]) Malignant neoplasm of sigmoid colon ([facility]/HCC) Malignant neoplasm of sigmoid colon Type 2 diabetes mellitus with diabetic neuropathy, unspecified ([facility]) alf (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 of insulin ([facility]/HCC) Basal cell carcinoma (BCC) of left side of nose- Primary Uncontrolled type 2 diabetes mellitus with hypoglycemia, unspecified hypoglycemia coma status (CMS/HCC) 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, unspecified laterality (CMS/HCC) Type 2 diabetes mellitus with diabetic chronic kidney disease ([facility]/HCC) Chronic kidney disease, stage 3b (HCC) ([facility]/HCC) Acquired hypothyroidism ([facility]/HCC) Unspecified hypothyroidism Uncontrolled type 2 diabetes mellitus with hypoglycemia, unspecified hypoglycemia coma status ([facility]/HCC) documented in this encounter [facility] HealthcareEvaluation note* Diagnosis Diabetic autonomic neuropathy associated with type 2 diabetes mellitus (HCC)- Primary Type II or unspecified type diabetes mellitus with neurological manifestations, not stated as uncontrolled Edema, unspecified type Degeneration of lumbar intervertebral disc Degeneration of lumbar or lumbosacral intervertebral disc Vitamin D deficiency Diabetic nephropathy associated with type 2 diabetes mellitus (HCC) Morbid obesity ([facility]-HCC) Morbid obesity Diabetes insipidus (HCC) Diabetes insipidus 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 Stage 3a chronic kidney disease ([facility]-HCC) Stage 3 chronic kidney disease, unspecified whether stage 3a or 3b CKD ([facility])- Primary Diabetes insipidus (HCC) Diabetes insipidus Acquired hypothyroidism Unspecified hypothyroidism 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, unspecified laterality (HCC) Diabetic nephropathy associated with type 2 diabetes mellitus (HCC) Uncontrolled type 2 diabetes mellitus with hypoglycemia, unspecified hypoglycemia coma status (HCC) Flu vaccine need Uncontrolled diabetes mellitus with hyperglycemia, with long-term current use of insulin (HCC)- Primary Uncontrolled type 2 diabetes mellitus with hypoglycemia, unspecified hypoglycemia coma status (HCC) 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 Stage 3a chronic kidney disease ([facility]-HCC) Flatulence, eructation and gas pain Flatulence, eructation, and gas pain Diabetic autonomic neuropathy associated with type 2 diabetes mellitus (HCC)- Primary Type II or unspecified type diabetes mellitus with neurological manifestations, not stated as uncontrolled 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, unspecified laterality (HCC) 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 Uncontrolled type 2 diabetes mellitus with hypoglycemia without coma (HCC) 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HCC) Type II or unspecified type diabetes mellitus without mention of complication, not stated as uncontrolled Chest pain due to myocardial ischemia, unspecified ischemic chest pain type Stage 3a chronic kidney disease ([facility])- Primary Vitamin D deficiency Hypothyroidism, unspecified type Morbid (severe) obesity due to excess calories (E66.01) Type 2 diabetes mellitus with diabetic autonomic neuropathy, with long-term current use of insulin ([facility]) Body mass index [BMI] 37.0-37.9, adult (Z68.37) Diabetic nephropathy associated with type 2 diabetes mellitus ([facility]) Closed fracture of left foot with delayed healing, subsequent encounter Diabetic nephropathy associated with type 2 diabetes mellitus ([facility])- Primary Type 2 diabetes mellitus with diabetic autonomic neuropathy, with long-term current use of insulin ([facility]) Routine general medical examination at health care facility- Primary Routine general medical examination at a health care facility Abnormal glucose tolerance test Impaired glucose tolerance test Benign essential hypertension Essential hypertension, benign Medicare annual wellness visit, subsequent Mixed hyperlipidemia Mixed hyperlipidemia Hypothyroidism, unspecified type 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) Uncontrolled type 2 diabetes mellitus with hypoglycemia, unspecified hypoglycemia coma status ([facility]) Dizziness Dizziness and giddiness Neck pain Cervicalgia Diabetic autonomic neuropathy associated with type 2 diabetes mellitus ([facility])- Primary Type II or unspecified type diabetes mellitus with neurological manifestations, not stated as uncontrolled Restless legs Restless legs syndrome (RLS) Edema, unspecified type 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 Atherosclerosis of aorta Essential hypertension Unspecified essential hypertension Murmur, cardiac Undiagnosed cardiac murmurs Fall in home, initial encounter- Primary Uncontrolled type 2 diabetes mellitus with hypoglycemia, unspecified hypoglycemia coma status (HCC) Encounter for vaccination History of COVID-19 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, unspecified laterality ([facility]) Cellulitis of left upper extremity- Primary Routine general medical examination at health care facility- Primary Routine general medical examination at a health care facility Uncontrolled type 2 diabetes mellitus with hypoglycemia, unspecified hypoglycemia coma status (HCC) Vitamin D deficiency Medicare annual wellness visit, subsequent Essential hypertension Unspecified essential hypertension Type 2 diabetes mellitus with diabetic cataract ([facility]) Type II or unspecified type diabetes mellitus with ophthalmic manifestations, not stated as uncontrolled Morbid (severe) obesity due to excess calories ([facility]) Body mass index (BMI) 35.0-35.9, adult Type 2 diabetes mellitus with unspecified diabetic retinopathy without macular edema (HCC) Type 2 diabetes mellitus with other specified complication (HCC) Mixed hyperlipidemia Mixed hyperlipidemia Type 2 diabetes mellitus with diabetic autonomic (poly)neuropathy (HCC) Type 2 diabetes mellitus with mild nonproliferative diabetic retinopathy without macular edema, unspecified eye (HCC) Type 2 diabetes mellitus with diabetic chronic kidney disease (HCC) Chronic kidney disease, stage 3a (CMS-HCC) 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 Type 2 diabetes mellitus with diabetic neuropathy, unspecified (HCC) terminal 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 (HCC) Basal cell carcinoma (BCC) of left side of nose- Primary Uncontrolled type 2 diabetes mellitus with hypoglycemia, unspecified hypoglycemia coma status (HCC) 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, unspecified laterality (HCC) Type 2 diabetes mellitus with diabetic chronic kidney disease (HCC) Chronic kidney disease, stage 3b ([facility]-HCC) Acquired hypothyroidism Unspecified hypothyroidism Essential hypertension Unspecified essential hypertension documented in this encounter [facility] HealthcareEvaluation note* Diagnosis Diabetic autonomic neuropathy associated with type 2 diabetes mellitus (HCC)- Primary Type II or unspecified type diabetes mellitus with neurological manifestations, not stated as uncontrolled Edema, unspecified type Degeneration of lumbar intervertebral disc Degeneration of lumbar or lumbosacral intervertebral disc Vitamin D deficiency Diabetic nephropathy associated with type 2 diabetes mellitus (HCC) Morbid obesity ([facility]-HCC) Morbid obesity Diabetes insipidus (HCC) Diabetes insipidus 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 Stage 3a chronic kidney disease ([facility]-HCC) Stage 3 chronic kidney disease, unspecified whether stage 3a or 3b CKD ([facility])- Primary Diabetes insipidus (HCC) Diabetes insipidus Acquired hypothyroidism Unspecified hypothyroidism 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, unspecified laterality (HCC) Diabetic nephropathy associated with type 2 diabetes mellitus (HCC) Uncontrolled type 2 diabetes mellitus with hypoglycemia, unspecified hypoglycemia coma status (HCC) Flu vaccine need Uncontrolled diabetes mellitus with hyperglycemia, with long-term current use of insulin (HCC)- Primary Uncontrolled type 2 diabetes mellitus with hypoglycemia, unspecified hypoglycemia coma status (HCC) 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 Stage 3a chronic kidney disease ([facility]-HCC) Flatulence, eructation and gas pain Flatulence, eructation, and gas pain Diabetic autonomic neuropathy associated with type 2 diabetes mellitus (HCC)- Primary Type II or unspecified type diabetes mellitus with neurological manifestations, not stated as uncontrolled 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, unspecified laterality (HCC) 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 Uncontrolled type 2 diabetes mellitus with hypoglycemia without coma (HCC) 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HCC) Type II or unspecified type diabetes mellitus without mention of complication, not stated as uncontrolled Chest pain due to myocardial ischemia, unspecified ischemic chest pain type Stage 3a chronic kidney disease ([facility])- Primary Vitamin D deficiency Hypothyroidism, unspecified type Morbid (severe) obesity due to excess calories (E66.01) Type 2 diabetes mellitus with diabetic autonomic neuropathy, with long-term current use of insulin ([facility]) Body mass index [BMI] 37.0-37.9, adult (Z68.37) Diabetic nephropathy associated with type 2 diabetes mellitus ([facility]) Closed fracture of left foot with delayed healing, subsequent encounter Diabetic nephropathy associated with type 2 diabetes mellitus (HCC)- Primary Type 2 diabetes mellitus with diabetic autonomic neuropathy, with long-term current use of insulin ([facility]) Routine general medical examination at health care facility- Primary Routine general medical examination at a health care facility Abnormal glucose tolerance test Impaired glucose tolerance test Benign essential hypertension Essential hypertension, benign Medicare annual wellness visit, subsequent Mixed hyperlipidemia Mixed hyperlipidemia Hypothyroidism, unspecified type 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) Uncontrolled type 2 diabetes mellitus with hypoglycemia, unspecified hypoglycemia coma status (HCC) Dizziness Dizziness and giddiness Neck pain Cervicalgia Diabetic autonomic neuropathy associated with type 2 diabetes mellitus ([facility])- Primary Type II or unspecified type diabetes mellitus with neurological manifestations, not stated as uncontrolled Restless legs Restless legs syndrome (RLS) Edema, unspecified type 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 Atherosclerosis of aorta Essential hypertension Unspecified essential hypertension Murmur, cardiac Undiagnosed cardiac murmurs Fall in home, initial encounter- Primary Uncontrolled type 2 diabetes mellitus with hypoglycemia, unspecified hypoglycemia coma status (HCC) Encounter for vaccination History of COVID-19 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, unspecified laterality (HCC) Cellulitis of left upper extremity- Primary Routine general medical examination at health care facility- Primary Routine general medical examination at a health care facility Uncontrolled type 2 diabetes mellitus with hypoglycemia, unspecified hypoglycemia coma status (HCC) Vitamin D deficiency Medicare annual wellness visit, subsequent Essential hypertension Unspecified essential hypertension Type 2 diabetes mellitus with diabetic cataract ([facility]) Type II or unspecified type diabetes mellitus with ophthalmic manifestations, not stated as uncontrolled Morbid (severe) obesity due to excess calories ([facility]) Body mass index (BMI) 35.0-35.9, adult Type 2 diabetes mellitus with unspecified diabetic retinopathy without macular edema (HCC) Type 2 diabetes mellitus with other specified complication (HCC) Mixed hyperlipidemia Mixed hyperlipidemia Type 2 diabetes mellitus with diabetic autonomic (poly)neuropathy (HCC) Type 2 diabetes mellitus with mild nonproliferative diabetic retinopathy without macular edema, unspecified eye (HCC) Type 2 diabetes mellitus with diabetic chronic kidney disease (HCC) Chronic kidney disease, stage 3a ([facility]) 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 Type 2 diabetes mellitus with diabetic neuropathy, unspecified (HCC) terminal 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 (HCC) Basal cell carcinoma (BCC) of left side of nose- Primary Uncontrolled type 2 diabetes mellitus with hypoglycemia, unspecified hypoglycemia coma status (HCC) 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, unspecified laterality (HCC) Type 2 diabetes mellitus with diabetic chronic kidney disease (HCC) Chronic kidney disease, stage 3b ([facility]) Acquired hypothyroidism Unspecified hypothyroidism Other chest pain- Primary Asthma, unspecified asthma severity, unspecified whether complicated, unspecified whether persistent (HCC) Uncontrolled type 2 diabetes mellitus with hypoglycemia, unspecified hypoglycemia coma status (HCC) documented in this encounter [facility] HealthcareEvaluation note* Diagnosis Encounter to establish care Other chest pain Near syncope Dizziness and giddiness Essential (primary) hypertension Unspecified essential hypertension History of lung cancer Personal history of malignant neoplasm of bronchus and lung History of colon cancer Personal history of malignant neoplasm of large intestine Type 2 diabetes mellitus with stage 3 chronic kidney disease, with long-term current use of insulin, unspecified whether stage 3a or 3b CKD (Multi) Localized edema Edema LVH (left ventricular hypertrophy) Cardiomegaly Biatrial enlargement Diastolic dysfunction Unspecified heart disease Chronic fatigue Other malaise and fatigue Blurry vision Other specified visual disturbances Orthopnea Acute diastolic heart failure Mitral valve insufficiency, unspecified etiology Type 2 diabetes mellitus with diabetic neuropathy, with long-term current use of insulin Tricuspid valve insufficiency, unspecified etiology Hypothyroidism, unspecified type Uncomplicated asthma, unspecified asthma severity, unspecified whether persistent ([facility]) Never smoked tobacco Obesity (BMI 30-39.9) History of fall Personal history of fall documented in this encounter [facility] Work Phone: Hospital Discharge instructions Additional Instructions No exertional activity Alternate between Tylenol and Motrin for pain May shower in 24 hours, blot wound dry and apply ointment Call the office for any questions or concerns Finish your current course of antibiotic Apply [facility] the [facility] Summary Purpose Family History No Family History Records Found Relationship Condition Age at Onset Recorded Date/T cristina father Unknown Diabetes mellitus Unknown mother Unknown Malignant neoplasm of colon Unknown sister Heart disease Unknown Malignant neoplasm Unknown sister Malignant neoplasm Unknown Relationship Condition Age at Onset Recorded Date/T cristina father Diabetes mellitus Unknown mother Malignant neoplasm of colon Unknown sister Heart disease Unknown Malignant neoplasm Unknown sister Malignant neoplasm Unknown Advance Directives No Advanced Directives Records Found Advance Directive Response Recorded Date/ Time Advance Directives No February 09, 2017 7:31am Advance Directive Response Recorded Date/ Time Advance Directives No February 09, 2017 8:31am Chief Complaint and Reason for Visit Chief Complaint Admit Date Nasal Wound June 24, 2024 9:47 am Chief Complaint Admit Date Nasal Wound June 24, 2024 9:47 am Nasal Wound June 27, 2024 2:55 pm Additional Source Comments INFORMATION SOURCE (unrecogn ized section and content) DATE CREATED AUTHOR 03/07/2022 [facility] DATE CREATED AUTHOR AUTHOR'S ORGANIZ ATION 08/23/2022 [facility] DATE CREATED AUTHOR AUTHOR'S ORGANIZ ATION 07/24/2024 [facility] DATE CREATED AUTHOR AUTHOR'S ORGANIZ ATION 08/14/2024 [facility] DATE CREATED AUTHOR AUTHOR'S ORGANIZ ATION 11/12/2024 [facility] Special[facility] EPIC DATE CREATED AUTHOR AUTHOR'S ORGANIZ ATION 11/23/2024 [facility] Soft [employer]ud [employer] Teams (unrecognized sec tion and content) Wet Roaster Relationship Specialty Start Date End Date Bautista Thayer MD [address] [facility] [address] [place] [address] PCP - Devoted 04/24/20 Bautista Thayer MD [address] [facility] [address] [place] [address] PCP - General Family Medicine 09/01/22 Wet Roaster Relationship Specialty Start Date End Date Bautista Thayer MD [address] [facility] [address] [place] [address] PCP - Devoted 04/24/20 Bautista Thayer MD [address] [facility] [address] [place] [address] PCP - General Family Medicine 09/01/22 Wet Roaster Relationship Specialty Start Date End Date Bautista Thayer MD [address] [facility] [address] [place] [address] PCP - Devoted 04/24/20 Bautista Thayer MD [address] [facility] [address] [place] [address] PCP - General Family Medicine 09/01/22 Wet Roaster Relationship Specialty Start Date End Date Bautista Thayer MD [address] [facility] [address] [place] [address] PCP - Devoted 04/24/20 Bautista Thayer MD [address] [facility] [address] [place] [address] PCP - General Family Medicine 09/01/22 Wet Roaster Relationship Specialty Start Date End Date Bautista Thayer MD [address] [facility] [address] [place] [address] PCP - Devoted 04/24/20 04/23/24 Bautista Thayer MD [address] [facility] [address] [place] [address] PCP - General Family Medicine 09/01/22 Wet Roaster Relationship Specialty Start Date End Date Bautista Thayer MD [address] [facility] [address] [place] [address] PCP - Devoted 04/24/20 04/23/24 Bautista Thayer MD [address] [facility] [address] [place] [address] PCP - General Family Medicine 09/01/22 Wet Roaster Relationship Specialty Start Date End Date Bautista Thayer MD [address] [facility] [address] [place] [address] PCP - Devoted 04/24/20 04/23/24 Bautista Thayer MD [address] [facility] [address] [place] [address] PCP - General Family Medicine 09/01/22 Wet Roaster Relationship Specialty Start Date End Date Bautista Thayer MD [address] [facility] [address] [place] [address] PCP - Devoted 04/24/20 04/23/24 Bautista Thayer MD [address] [facility] [address] [place] [address] PCP - General Family Medicine 09/01/22 Wet Roaster Relationship Specialty Start Date End Date Bautista Thayer MD [address] [facility] [address] [place] [address] PCP - Devoted 04/24/20 04/23/24 Bautista Thayer MD [address] [facility] [address] [place] [address] PCP - General Family Medicine 09/01/22 Wet Roaster Relationship Specialty Start Date End Date Bautista Thayer MD [address] [place] [address] [place] [address] PCP - General Family Medicine 09/01/22 Wet Roaster Relationship Specialty Start Date End Date Bautista Thayer MD [address] [place] [address] [place] [address] PCP - General Family Medicine 09/01/22 Wet Roaster Relationship Specialty Start Date End Date Bautista Thayer MD [address] [place] [address] [place] [address] PCP - General Family Medicine 09/01/22 Britni Irwin, RN [facility] 05/31/24 Wet Roaster Relationship Specialty Start Date End Date Bautista Thayer MD [address] [facility] [address] [place] [address] PCP - General Family Medicine 09/01/22 Britni Irwin, RN [facility] 05/31/24 Wet Roaster Relationship Specialty Start Date End Date Bautista Thayer MD [address] [facility] [address] [place] [address] PCP - General Family Medicine 09/01/22 Britni Irwin, RN [facility] 05/31/24 Team Status: Active Member Role Status Dates Bautista Thayer MD Primary Care Provider Active Team Status: Inactive Member Role Status Dates Korey Valencia DO Attending Provider Active S tart: June 24, 2024 End: June 24, 2024 Bautista Thayer MD Primary Care Provider Active S tart: June 24, 2024 End: June 24, 2024 Team Status: Inactive Member Role Status Dates Korey Valencia DO Attending Provider Active S tart: June 27, 2024 End: June 27, 2024 Bautista Thayer MD Primary Care Provider Active S tart: June 27, 2024 End: June 27, 2024 Wet Roaster Relationship Specialty Start Date End Date Bautista Thayer MD [address] [place] [address] PCP - General Family Medicine 09/01/22 Britni Irwin, LINO Clinical Advocate Family Medicine 05/31/24 Vernell Llamas MD [address] [place] [address] Referring Physician Dermatology 07/03/24 Eriberto Hdez DO [address] [place] [address] Otolaryngology 07/03/24 Wet Roaster Relationship Specialty Start Date End Date Bautista Thayer MD [address] [facility] [address] [place] [address] PCP - General Family Medicine 09/01/22 Bautista Thayer MD [address] [facility] [address] [place] [address] PCP - [facility] 04/24/2404/23 Vernell Llamas MD [address] [place] [address] Referring Physician Dermatology 07/03/24 Eriberto Hdez DO [address] [place] [address] Otolaryngology 07/03/24 Candice Randle LPN 07/10/24 Wet Roaster Relationship Specialty Start Date End Date Bautista Thayer MD [address] [place] [address] PCP - General Family Medicine 09/01/22 Bautista Thayer MD [address] [place] [address] PCP - Medical [place] 04/24/2404/23 Vernell Llamas MD [address] [place] [address] Referring Physician Dermatology 07/03/24 Eriberto Hdez, [address] [place] [address] Otolaryngology 07/03/24 [facility] 07/10/24 Wet Roaster Relationship Specialty Start Date End Date Bautista Thayer MD [address] [facility] [address] [place] [address] PCP - General Family Medicine 09/01/22 Bautista Thayer MD [address] [facility] [address] [place] [address] PCP - Medical [place] 04/24/2404/23 Vernell Llamas MD [address] [place] [address] Referring Physician Dermatology 07/03/24 Eriberto Hdez, DO [address] [place] [address] Otolaryngology 07/03/24 Candice Randle, [facility] 07/10/24 Wet Roaster Relationship Specialty Start Date End Date Bautista Thayer MD [address] [place] [address] PCP - General Family Medicine 09/01/22 Bautista Thayer MD [address] [facility] [address] [place] [address] PCP - Medical [place] 04/24/2404/23 Vernell Llamas MD [address] [facility] [address] [place] [address] Referring Physician Dermatology 07/03/24 Eriberto Hdez, DO [address] [place] [address] Otolaryngology 07/03/24 Candice Randle, [facility] 07/10/24 Wet Roaster Relationship Specialty Start Date End Date Bautista Thayer MD [address] [facility] [address] [place] [address] PCP - General Family Medicine 09/01/22 Bautista Thayer MD [address] [facility] [address] [place] [address] PCP - Medical [place] 04/24/2404/23 Vernell Llamas MD [address] [facility] [address] [place] [address] Referring Physician Dermatology 07/03/24 Eriberto Hdez, [address] [place] [address] Otolaryngology 07/03/24 Candice Randle LPN [address] [facility] [address] [place] [address] 07/10/24 Wet Roaster Relationship Specialty Start Date End Date Bautista Thayer MD [address] [facility] [address] [place] [address] PCP - General Family Medicine 09/01/22 Bautista Thayer MD [address] [facility] [address] [place] [address] PCP - Medical [facility] 04/24/2404/23 Vernell Llamas MD [address] [facility] [address] [place] [address] Referring Physician Dermatology 07/03/24 Eriberto Hdez DO [address] [place] [address] Otolaryngology 07/03/24 Candice Randle LPN [address] [facility] [address] [place] [address] 07/10/24 Wet Roaster Relationship Specialty Start Date End Date Bautista Thayer MD [address] [facility] [address] [place] [address] PCP - General Family Medicine 11/11/24 Reason for Visit (unrecogniz ed section and content) Reason Comments Edema Top of left foot and into her left ankle. She thinks she could have possible twisted it but does not remember hurting it. Started Monday. Med Refill Pen needles Reason Comments Diabetes Last A1c was 7.7 Reason Comments Suspicious Skin Lesion Reason Onset Date Comments PT Initial Eval 02/07/2024 Tried to contact to set-up PT Eval but VM not taking messages; will try again. fu 02/13/2024 Contacted and of addison to schedule PT eval for frequent falls at home. I noted copay and she said she wanted to contact insurance. I noted all info re: auth thru [employer]; visits set on Med Nec and $20.00 copay. She said she will contact me back. Final FU 02/29/2024 Contacted re: no hear back concerning scheduling PT Eval. She said she will be having dental work and come the new year she will have new insurance. She noted she'd like to hold off till the new year and she will contact if both the doctor and she feels PT is still necessary. Reason Comments Med Refill Reason Comments Laceration Arm possible infecte d Reason Comments Medicare Annual Wellness Visit Subsequen t Middle back pain been hurting her Reason Comments Mohs Micrographic Surgery Reason Comments Mohs Reconstruction New Patient : Mohs - nose BCC Reason Comments Post-op Reason Comments Diabetes Last A1c was 7.7 Reason Comments Med Change Request Reason Comments Diabetes Last 7.6 Reason Comments New Patient Visit Chest pain Specialty Diagnoses / Procedures Referred By Kate ferreira Referred To Contact Diagnoses Encounter to establish care Procedures ECG 12 Lead Nagi Murry MD [address] [address] Phone: tel: fax: Referral ID Status Reason Start Date Expiration Date V isits Requested Visits Authorized [id number] Authorized 11/21/2024 11/21/2025 1 1 Goals (unrecognized section and content) Goals may be documented in a n alternate section FOR RECORDS PERTAINING TO PATIENTS WHO ARE [...] BE BASED ON THE PRIMARY CLINICAL RECORDS. [employer] provides no warranty or guarantee of the accuracy or completeness of information in this document.
[2024-11-26 09:37] LABS: Hematocrit 35.1 % (36.0-48.0); Hemoglobin 11.0 g/dL (12.0-16.0); Immature Granulocytes Abs Auto 0.05 10^3/uL (0.00-0.03); Immature Granulocytes Pct Auto 0.7 % (0.0-0.5); Lymphocytes Absolute Auto 2.1 10^3/uL (1.2-3.8); Mean Corpuscular HGB Conc 31.3 g/dL (29.9-35.2); Mean Corpuscular Hemoglobin 28.9 pg (26.7-34.0); Mean Corpuscular Volume 92.1 fL (81.0-99.0); Platelet Count 184 10^3/uL (150-450); Red Blood Count 3.81 10^6/uL (4.20-5.40); White Blood Count 7.5 10^3/uL (4.0-11.0)
[2024-11-26 10:03] LABS: Alanine Aminotransferase 20 U/L (14-59); Albumin Globulin Ratio 1.0; Albumin Level 3.4 g/dL (3.4-5.0); Alkaline Phosphatase 87 U/L (46-116); Anion Gap 12.3; Aspartate Amino Transferase 14 U/L (15-37); Blood Urea Nitrogen 37.0 mg/dL (7.0-18.0); Calcium 9.6 mg/dL (8.5-10.1); Carbon Dioxide 28.8 mmol/L (21.0-32.0); Chloride 105 mmol/L (98-107); Cholesterol 202 mg/dL (<=200); Estimated GFR (African America 59 (>=60 mL/min/1.73m^2); Estimated GFR (Non-African Ame 48 (>=60 mL/min/1.73m^2); Globulin 3.4 g/dL; Glucose 192 mg/dL (74-106); HDL Cholesterol 40 mg/dL (40-60); Magnesium 1.5 mg/dL (1.8-2.4); Potassium 5.1 mmol/L (3.5-5.1); Sodium 141 mmol/L (136-145); Thyroid Stimulating Hormone 1.163 uIU/mL (0.358-3.740); Total Protein 6.8 g/dL (6.4-8.2); Triglycerides 155 mg/dL (<=150); VLDL CHOLESTEROL 31.0 mg/dL
== END 2024-11-26 09:13 | disposition home or self-care (01) ==
LOC: LAB 09:16
PROVIDERS: PCP Family Medicine; Visit Provider Internal Medicine Cardiovascular Disease
DX: R42 Dizziness and giddiness (principal); E11.22 Type 2 diabetes mellitus with diabetic chronic kidney disease; N18.30 Chronic kidney disease, stage 3 unspecified; Z79.4 Long term (current) use of insulin; R53.82 Chronic fatigue, unspecified; E03.9 Hypothyroidism, unspecified; I12.9 Hypertensive chronic kidney disease with stage 1 through stage 4 chronic kidney disease, or unspecified chronic kidney disease
CPT/HCPCS: 36415; 80053; 80061; 83735; 84443; 85025

== ENCOUNTER 2024-12-30 11:49 | Outpatient (OUT) | payer MEDICARE, SELFPAY ==
--- OUTSIDE RECORDS SUMMARY | 2024-12-19 13:30 | XMS_ITS | Encounter Summary ---
Author Organization [facility] Address [address] [place] [address] Phone Care Team Providers Care Surgery Consultant Name Role Phone Rio Murray MD Primary Care Provider [phone] Reason for Referral * Consultation (Routine) - Authorized Specialty Diagnoses / Procedures Referred By Contac t Referred To Contact Cardiology Diagnoses Essential (primary) hypertension Murmur, cardiac LVH (left ventricular hypertrophy) Diastolic dysfunction Acute diastolic heart failure Type 2 diabetes mellitus with stage 3 chronic kidney disease, with long-term current use of insulin, unspecified whether stage 3a or 3b CKD (Multi) Mixed hyperlipidemia Hypothyroidism, unspecified type Localized edema Dizziness and giddiness Morbid obesity with body mass index (BMI) of 40.0 or higher (Multi) Encounter to discuss test results Procedures Follow Up In Cardiology Nagi Mcgill MD [address] [place] [address] Phone: tel: fax: Nagi Mcgill MD [address] [place] [address] Phone: tel: fax: Referral ID Status Reason Start Date Expiration Date V isits Requested Visits Authorized [id number] Authorized 12/19/2024 12/19/2025 1 1 Reason for Visit * Reason Comments Follow-up Holter monitor resul ts * Consultation (Routine) - Authorized Specialty Diagnoses / Procedures Referred By Contac t Referred To Contact Cardiology Diagnoses Other chest pain Procedures Follow Up In Cardiology Nagi Mcgill MD [address] [place] [address] Phone: tel: fax: Nagi Mcgill MD [address] [facility] [address] [place] [address] Phone: tel: fax: Referral ID Status Reason Start Date Expiration Date V isits Requested Visits Authorized [id number] Authorized 11/21/2024 11/21/2025 1 1 Encounter Details Date Type Department Care Team (Late st Contact Info) Description 12/19/2024 1:30 PM EDT Office Visit [facility] [address] [address] Nagi Mcgill MD [address] [address] Other chest pain; Essential (primary) hypertension; Murmur, cardiac; LVH (left ventricular hypertrophy); Diastolic dysfunction; Mitral valve insufficiency, unspecified etiology; Tricuspid valve insufficiency, unspecified etiology; Acute diastolic heart failure; Type 2 diabetes mellitus with stage 3 chronic kidney disease, with long-term current use of insulin, unspecified whether stage 3a or 3b CKD (Multi); Mixed hyperlipidemia; Hypothyroidism, unspecified type; Localized edema; Dizziness and giddiness; Never smoked tobacco; Morbid obesity with body mass index (BMI) of 40.0 or higher (Multi); History of fall; Encounter to discuss test results Discharge Disposition: Home Social History Tobacco Use Types Packs/Day Years Used Date Smoking Tobacco: Never Smokeless Tobacco: Never Alcohol Use Standard Drinks/Week Comments Not Currently 0 (1 standard drink = 0.6 oz pur e alcohol) Comments Unknown Sex and Gender Information Value Date Recorded Sex Assigned at Not on file Legal Sex Female 12:42 PM EDT Gender Identity Not on file Sexual Orientation Not on file documented as of this encounter Last Filed Vital Signs Vital Sign Reading Time Taken Comments Blood Pressure 138/84 12/19/2024 1:33 PM EDT Pulse 78 12/19/2024 1:33 PM EDT Temperature - - Respiratory Rate - - Oxygen Saturation - - Inhaled Oxygen Concentration - - Weight 85.4 kg (188 lb 3.2 oz) 12/19/2024 1:33 P M EDT Height 144.8 cm (4' 9 ) 12/19/2024 1:33 PM EDT Body Mass Index 40.73 12/19/2024 1:33 PM EDT documented in this encounter Patient Instructions * Patient Instructions* Eleonora Tobias LPN - 12/19/2024 1:30 PM EDT Please bring all medicines, vitamins, and herbal supplements with you when you come to the office. Prescriptions will not be filled unless you are compliant with your follow up appointments or have a follow up appointment scheduled as per instruction of your physician. Refills should be requested at the time of your visit. BMI was above normal measurement. Current weight: 85.4 kg (188 lb 3.2 oz) Weight change since last visit (-) denotes wt loss 6.2 lbs Weight loss needed to achieve BMI 25: 72.9 Lbs Weight loss needed to achieve BMI 30: 49.9 Lbs Provided instructions on dietary changes. STOP CARDIZEM START MAGNESIUM 400 MG TWICE DAILY INCREASE DAILY WATER INTAKE; ABOUT 48 oz DAILY INCREASE LASIX TO 40 MG DAILY START CRESTOR 10 MG IN THE EVENING LABWORK * Attachments The following attachments cannot be sent through Care Everywhere. * Heart Healthy Diet (Swedish) documented in this encounter Progress Notes * Nagi Mcgill MD - 12/19/2024 1:30 PM EDT CARDIOLOGY OFFICE NOTE Date: 12/19/2024 Patient: Willie Gonzalez Date of : 1940 Primary Physician: Rio Murray MD REASON FOR VISIT / CHIEF COMPLAINT: Cardiology follow-up post testing. HPI: Willie Gonzalez was seen in cardiac evaluation at the [facility] Cardiology office December 19, 2024. The patients problems are listed as in the impression below. Electronic medical records reviewed. Patient returns. She has a history of chest pain, dyspnea on exertion, palpitations and lightheadedness with presyncope. She has lower extremity edema. She has a prior history of congestive heart failure. She had a negative perfusion stress test in April 2023. Normal LV function. She underwent two 48-hour Holter monitoring and held her Cardizem during this. This showed predominant sinus rhythm with first-degree AV block. There was second-degree heart block type I and 2 at night. Heart rates went to slowest 30 bpm. 4 beat nonsustained ventricular tachycardia megan. No atrialfibrillation. She does note that she gets so dizzy when she was taking her diltiazem. She has noted increased edema as well. Patient denies TIA or CVA symptoms. No CHF. No Palpitations. No GI, or Bleeding Issues. No Recent Fever or Chills. Cardiovascular and general review of systems is otherwise negative. A 14-system review is otherwise negative, other than noted. PHYSICAL EXAMINATION: Vitals: 12/19/24 1333 BP: 138/84 Pulse: 78 General: No acute distress. Alert and oriented. Head And Neck Examination: [...] otherwise unremarkable. Neuro: Neurologically appeared grossly intact. IMPRESSION: Cardiovascular status stable Chest pain Dyspnea on exertion Palpitations Lightheadedness Presyncope Edema Orthopnea Fatigue First-degree AV block Second-degree heart block, type I and II, nocturnally, Holter monitor 11/2024 Nonsustained ventricular tachycardia 4 beat megan, Holter monitor 11/2024 Congestive heart failure, diastolic, chronic Negative Myoview [...] Otherwise as per assessment below. RECOMMENDATIONS: Patient had a Holter monitor done which noted some nocturnal bradycardia, second-degree heart block1 short megan of nonsustained ventricular tachycardia. She was off of her Cardizem at that time of the monitor. Would suggest at this time that we discontinue Cardizem. Will add magnesium oxide 4 mg twice daily. Will increase losartan to 25 mg twice daily. Will increase Lasix to 40 mg daily. She will start Crestor 10 mg nightly given her diabetes and her LDL cholesterol of 131. Copeland goal would be less than 70. She will continue her other medications. Refills were provided. Exercise dietary program. Hydration. C[employer] use was encouraged. We will plan to see back in 2 weeks with Laboratory Studies and ECG as ordered. Patient will follow up with their primary physician for general care. The patient knows to contact medical care earlier if need be. ALLERGIES: Aspirin MEDICATIONS: Current Outpatient Medications Medication Instructions albuterol 90 mcg/actuation inhaler 2 puffs, Every 6 hours PRN baclofen (Lioresal) 10 mg tablet TAKE 1 TABLET BY MOUTH WITH FOOD or milk THREE TIMES DAILY dilTIAZem CD (CARDIZEM CD) 120 mg, oral, Daily ergocalciferol (VITAMIN D-2) 1.25 mg, Weekly furosemide (LASIX) 20 mg, Daily before breakfast levothyroxine (SYNTHROID, LEVOXYL) 50 mcg, Daily before breakfast losartan (COZAAR) 25 mg, Daily RT Toujeo SoloStar U-300 Insulin 33 Units ELECTROCARDIOGRAM: None this visit CARDIAC TESTING: Holter monitor, 11/2024: Predominant sinus rhythm with first-degree AV block. Average heart rate 63 bpm. Minimum heart rate 34 and 102 beats minute respectively. Second-degree heart block (type I and II ), nocturnal. 4 beat nonsustained ventricular tachycardia. LABORATORY DATA: None this visit PROBLEM LIST: Problem List[1] Nagi Mcgill MD, [facility] / Cardiology Of Note: [employer] voice recognition dictation software was utilized partially in the preparation of this note,therefore, inaccuracies in spelling, word choice and punctuation may have occurred which were not recognized at the time of signing. Patient was seen and examined with total time of visit including chart preparation, rooming, and chart completion exceeding 40 minutes. [1] Patient Active Problem List Diagnosis Other [...] diastolic heart failure documented in this encounter Plan of Treatment Upcoming Encounters Date Type Department Care Team (Late st Contact Info) Description 01/02/2025 1:15 PM EDT Office Visit [facility] 7[address] [facility] [address] [place] [address] Nagi Mcgill MD [address] [facility] [address] [place] [address] Scheduled Orders Name Type Priority Associated Diagnoses Orde r Schedule Comprehensive Metabolic Panel Lab Routine Diastolic dysfunction Acute diastolic heart failure Expected: 12/19/2024, Expires: 12/19/2025 CBC Lab Routine Diastolic dysfunction Acute diastolic heart failure Expected: 12/19/2024, Expires: 12/19/2025 Magnesium Lab Routine Diastolic dysfunction Acute diastolic heart failure Expected: 12/19/2024, Expires: 12/19/2025 documented as of this encounter Visit Diagnoses Diagnosis Other chest pain Essential (primary) hypertension Unspecified essential hypertension Murmur, cardiac Undiagnosed cardiac murmurs LVH (left ventricular hypertrophy) Cardiomegaly Diastolic dysfunction Unspecified heart disease Mitral valve insufficiency, unspecified etiology Tricuspid valve insufficiency, unspecified etiology Acute diastolic heart failure Type 2 diabetes mellitus with stage 3 chronic kidney disease, with long-term current use of insulin, unspecified whether stage 3a or 3b CKD (Multi) Mixed hyperlipidemia Hypothyroidism, unspecified type Localized edema Edema Dizziness and giddiness Never smoked tobacco Morbid obesity with body mass index (BMI) of 40.0 or higher (Multi) History of fall Personal history of fall Encounter to discuss test results Other specified counseling documented in this encounter Additional Health Concerns Assessment Noted Time A fall risk assessment has been complete d for the patient 11/21/2024 11:00 AM EDT documented as of this encounter Care Teams Surgery Consultant Relationship Specialty Start Date End Date Rio Murray MD [address] [address] PCP - General Family Medicine 11/11/24 documented as of this encounter
--- OUTSIDE RECORDS SUMMARY | 2024-12-30 11:56 | XMS_ITS | Encounter Summary ---
Author Organization [facility] Address [address] [facility] [place] [address] Care Team Providers Care Inclusion Teacher Name Role Phone Rio Murray MD Unavailable Rio Murray MD Primary Care Provider Britni Irwin RN Unavailable Benito Llamas MD Unavailable Eriberto Hdez DO Unavailable [phone] Candice Randle LPN Unavailable Rio Murray MD Unavailable Encounter Details Date Type Department Care Team (Late st Contact Info) Description 04/03/2023 Abstract [facility] [place] [facility] [address] [facility] [address] [place] [address] Rio Murray MD [address] [facility] [address] [place], [place] [id number] Social History Tobacco Use Types Packs/Day Years Used Date Smoking Tobacco: Never Smokeless Tobacco: Never Alcohol Use Standard Drinks/Week Comments Never 0 (1 standard drink = 0.6 oz pur e alcohol) Humiliation, Afraid, Rape, and Kick questionnair e Answer Date Recorded Within the last year, have y ou been afraid of your partner or ex-partner? No 11/01/2022 Within the last year, have y ou been humiliated or emotionally abused in other ways by your partner or ex-partner? No Within the last year, have y ou been kicked, hit, slapped, or otherwise physically hurt by your partner or ex-partner? No 11/01/2022 Within the last year, have y ou been raped or forced to have any kind of sexual activity by your partner or ex-partner? No 11/01/2022 Social Connection and Isolat ion Panel [NHANES] Answer Date Recorded In a typical week, how many times do you talk on the phone with family, friends, or neighbors? More than three times a week 11/01/2022 How often do you get togethe r with friends or relatives? More than three times a week 11/01/2022 How often do you attend [facility] or sikh services? More than 4 times per year 11/01/2022 Do you belong to any clubs o r organizations such as cheondoism groups, unions, fraternal or athletic groups, or school groups? Yes 11/01/2022 How often do you attend meet ings of the clubs or organizations you belong to? More than 4 times per year 11/01/2022 Are you , , di vorced, , never , or living with a partner? 11/01/2022 AUDIT-C Answer Date Recorded Q1: How often do you have a drink containing alcohol? Never 11/01/2022 Q2: How many drinks containi ng alcohol do you have on a typical day when you are drinking? Patient does not drink Q3: How often do you have si x or more drinks on one occasion? Never 11/01/2022 Overall Financial Resource Strain (CARDIA) Answe r Date Recorded How hard is it for you to pa y for the very basics like food, housing, medical care, and heating? Not hard at all 11/01/2022 [facility] - Occupational Stress Questionnaire Answer Date Recorded Do you feel stress - tense, restless, nervous, or anxious, or unable to sleep at night because your mind is troubled all the time - these days? Only a little 11/01/2022 Exercise Vital Sign Answer Date Recorde d On average, how many days pe r week do you engage in moderate to strenuous exercise (like a brisk walk)? 0 days 11/01/2022 On average, how many minutes do you engage in exercise at this level? 0 min 11/01/2022 Hunger Vital Sign Answer Date Recorded Within the past 12 months, y ou worried that your food would run out before you got the money to buy more. Never true 11/02/19 23 Within the past 12 months, t he food you bought just didn't last and you didn't have money to get more. Never true 11/01/2022 PRAPARE - Transportation Answer Date Re corded In the past 12 months, has l ack of transportation kept you from medical appointments or from getting medications? No 10/22 In the past 12 months, has l ack of transportation kept you from meetings, work, or from getting things needed for daily living? No 11/01/2022 Housing Stability Vital Sign Answer Doe e Recorded In the last 12 months, was t here a time when you were not able to pay the mortgage or rent on time? No 11/01/2022 In the last 12 months, how many places have you lived? 1 11/01/2022 In the last 12 months, was t here a time when you did not have a steady place to sleep or slept in a care home (including now)? No 11/01/2022 Comments Unknown Sex and Gender Information Value Date Recorded Sex Assigned at Not on file Legal Sex Female 6:59 PM EDT Gender Identity Not on file Sexual Orientation Not on file documented as of this encounter Plan of Treatment Upcoming Encounters Date Type Department Care Team (Late st Contact Info) Description 02/10/2025 10:30 AM EDT Office Visit [facility] [place] [facility] [address] [place] [address] Rio Murray MD [address] [place] [address] 06/05/2025 1:50 PM EST Office Visit [facility] [place] [facility] [address] [place] [phone] Zaina Leonardo MD [address] [facility] [address] [place] [id number] documented as of this encounter Visit Diagnoses Not on filedocumented in this encounter Care Teams Inclusion Teacher Relationship Specialty Start Date End Date Rio Murray MD [address] [facility] [address] [place] [address] PCP - [facility] 04/24/20 04/23/24 Rio Murray MD [address] [facility] [address] [place] [address] PCP - General Family Medicine 09/01/22 Rio Murray MD [address] [facility] [address] [place] [address] PCP - Medical [facility] 04/24/2404/23 Britni Irwin, RN [address] [place] [address] Clinical [facility] 05/31/24 07/10/24 Beinto Llamas MD [address] [facility] [address] [place] [address] Referring Physician Dermatology 07/03/24 Eriberto Hdez DO [address] [place] [address] Otolaryngology 07/03/24 Candice Randle LPN [address] [facility] [address] [place] [address] 07/10/24 documented as of this encounter
--- OUTSIDE RECORDS SUMMARY | 2024-12-30 11:56 | XMS_ITS | Encounter Summary ---
Author Organization [facility] Address [address] [facility] [place] [address] Care Team Providers Care Metal Wire Coating Operator Name Role Phone Rio Murray MD Primary Care Provider Britni Irwin RN Unavailable [phone] Benito Llamas MD Unavailable [phone] Eriberto dHez Grace DO Unavailable [phone] Candice Randle LPN Unavailable Rio Murray MD Unavailable Encounter Details Date Type Department Care Team (Late st Contact Info) Description 06/28/2024 Abstract [facility] [place] [facility] [address] [place] [address] Rio Murray MD [address] [place] [address] Social History Tobacco Use Types Packs/Day Years Used Date Smoking Tobacco: Never Smokeless Tobacco: Never Alcohol Use Standard Drinks/Week Comments Never 0 (1 standard drink = 0.6 oz pur e alcohol) B1300 Health Literacy Answer Date Recor ded How often do you need to hav e someone help you when you read instructions, pamphlets, or other written material from your doctor or pharmacy? Never 01/18/2024 Humiliation, Afraid, Rape, and Kick questionnair e [...] week 11/01/2022 How often do you attend chur or latter day services? More than 4 times per year 11/01/2022 Do you belong to any clubs o r organizations such as gnosticism groups, unions, fraternal or athletic groups, or [...] and heating? Not hard at all 11/01/2022 PHQ-2 Answer Date Recorded Patient Health Questionnaire-2 Score 0 05/16/2024 [place] of Occupat ional Health - Occupational Stress [...] place to sleep or slept in a long-term (including now)? No 11/01/2022 Comments Unknown Sex [...] EDT Office Visit [facility] [place] [facility] [address] [facility] 110 [place] [address] Rio Murray MD 112 [facility] 110 [place] [address] 06/05/2025 1:50 PM EST [facility] [address] [place] [address] Zaina Leonardo MD [address] [place] [address] documented as of this encounter Visit Diagnoses Not on filedocumented in this encounter Care Teams Metal Wire Coating Operator Relationship Specialty Start Date End Date Rio Murray MD [address] [place] [address] PCP - General Family Medicine 09/01/22 Rio Murray MD [address] [facility] 110 [place] [address] PCP - Medical [facility] 04/24/2404/23 Britni Irwin, RN [address] [facility] [place] [address] Clinical Advocate Family Medicine 05/31/24 07/10/24 Benito Llamas MD [address] [place] [address] Referring Physician Dermatology 07/03/24 Eriberto Hdez DO [address] [place] [address] Otolaryngology 07/03/24 Candice Randle LPN [address] [place] [address] 07/10/24 documented as of this encounter
--- OUTSIDE RECORDS SUMMARY | 2024-12-30 11:56 | XMS_ITS | Clinical Summary ---
Author Organization [facility] Address [address] [place] [address] Phone Care Team Providers Care Screwmaker Automatic Name Role Phone Rio Murray MD Primary Care Provider [phone] Allergies Active Allergy Reactions Criticality Noted Date Comments Aspirin GI Upset 10/18/2022 Other Reaction(s): makes her stomach burn Medications albuterol 90 mcg/actuation inhaler Inhale 2 puffs every 6 hours if needed for shortness of breath. 11/12/19 25 Active Toujeo SoloStar U-300 Insulin 300 unit/mL (1.5 mL) pen Inject 33 Units under the skin once daily in the evening. Take with meals. 10/25/19 25 026 Active ergocalciferol (Vitamin D-2) 1250 mcg (50,000 units) capsule Take 1 capsule (1.25 mg) by mouth 1 (one) time per week. 03/31/20 23 Active levothyroxine (Synthroid, Levoxyl) 50 mcg tablet Take 1 tablet (50 mcg) by mouth once daily in the morning. Take before meals. Take on an empty stomach 09/24/19 25 Active baclofen (Lioresal) 10 mg tablet TAKE 1 TABLET BY MOUTH WITH FOOD or milk THREE TIMES DAILY 03/31/20 23 Active magnesium oxide (Mag-Ox) 400 mg tabletIndications: Murmur, cardiac Take 1 tablet (400 mg) by mouth 2 times a day. 180 tablet 3 12/20/19 25 026 Active losartan (Cozaar) 25 mg tabletIndications: Essential (primary) hypertension Take 1 tablet (25 mg) by mouth 2 times a day. 180 tablet 3 12/20/19 25 026 Active furosemide (Lasix) 40 mg tabletIndications: Essential (primary) hypertension Take 1 tablet (40 mg) by mouth once daily in the morning. Take before meals. 90 tablet 3 12/20/19 026 Active rosuvastatin (Crestor) 10 mg tabletIndications: Mixed hyperlipidemia Take 1 tablet (10 mg) by mouth once daily. 90 tablet 3 12/20/19 25 026 Active insulin lispro-aabc (Lyumjev KwikPen U-100 Insulin) 100 unit/mL insulin pen Inject 8 Units under the skin 2 times a day. Take as directed per insulin instructions. Active Lyumjev KwikPen U-100 Insulin 100 unit/mL insulin pen Inject 8 Units under the skin. 11/12/19 025 furosemide (Lasix) 20 mg tablet Take 1 tablet (20 mg) by mouth once daily in the morning. Take before meals. 03/31/20 025 Discontinu ed(Reorder ) losartan (Cozaar) 25 mg tablet Take 1 tablet (25 mg) by mouth once daily. 03/31/20 025 Discontinu ed(Reorder ) dilTIAZem CD (Cardizem CD) 120 mg 24 hr capsuleIndications :Essential (primary) hypertension,Local ized edema Take 1 capsule (120 mg) by mouth once daily. 90 capsule 3 11/22/19 025 Discontinu ed(Therapy completed) Active Problems Problem Noted Date Diagnosed Date Mixed hyperlipidemia 12/19/2024 Other chest pain 11/21/2024 Never smoked tobacco 11/21/2024 History of lung cancer 11/21/2024 History of colon cancer 11/21/2024 Essential (primary) hypertension 11/21/2024 Murmur, cardiac 11/21/2024 Morbid obesity with body mas s index (BMI) of 40.0 or higher (Multi) 11/21/2024 Type 2 diabetes mellitus wit h chronic kidney disease, with long-term current use of insulin (Multi) 11/21/2024 Localized edema 11/21/2024 LVH (left ventricular hypertrophy) 11/21/2024 Biatrial enlargement 11/21/2024 Diastolic dysfunction 11/21/2024 Mitral regurgitation 11/21/2024 Tricuspid regurgitation 11/21/2024 Hypothyroid 11/21/2024 Uncomplicated asthma ([facility]) 11/21/2024 Dizziness and giddiness 11/21/2024 Near syncope 11/21/2024 Orthopnea 11/21/2024 Fatigue 11/21/2024 Blurry vision 11/21/2024 Encounter to discuss test results 11/21/2024 History of fall 11/21/2024 Acute diastolic heart failure 11/21/2024 Encounters Date Type Department Care Team Description 12/20/[address] [address] Luisana Moon LPN 12/19/2024 1:30 PM EDT Office Visit [address] [address] Nagi Mcgill MD Other chest pain; Essential (primary) hypertension; Murmur, [...] to discuss test results Discharge Disposition: Home 12/19/2024 Travel 11/26/2024 Scanned Document [facility] [address] [place] [address] Scanning, Generic Provider 11/25/2024 10:00 AM EDT Ancillary Procedure [address] [address] Near syncope; Dizziness and giddiness 11/25/2024 Travel 11/21/2024 10:30 AM EDT Office Visit [address] [address] Nagi Mcgill MD Encounter to establish care; Other chest pain; Near syncope; Dizziness and [...] asthma, unspecified asthma severity, unspecified whether persistent ([facility]); Never smoked tobacco; Obesity (BMI 30-39.9); History of fall 11/21/2024 Travel 11/11/2024 Telephone [facility] [address] [address] Madhavi Rose MA 11/11/2024 Scanned Document [facility] [address] [place] [address] Scanning, Generic Provider from Last 3 Months Immunizations Immunization Administration Dates Next Due Flu vaccine, quadrivalent, h igh-dose, preservative free, age 65y+ (FLUZONE) 02/06/2024,01/24/2023,02/14/2022 Pneumococcal conjugate vacci ne, 13-valent (PREVNAR 13) 03/05/2015 Pneumococcal polysaccharide vaccine, 23-valent, age 2 years and older (PNEUMOVAX 23) 03/08/2011 Family History Medical History Relation Name Comments Diabetes Brother Emphysema Brother Gout Brother Heart attack Brother Heart disease Brother Heart failure Brother Stomach cancer Brother Diabetes Father Colon cancer Mother Brain cancer Sister Lymphoma Sister Ovarian cancer Sister Relation Name Status Comments Brother Father Mother Sister Social History Tobacco Use Types Packs/Day Years Used Date Smoking Tobacco: Never Smokeless Tobacco: Never Alcohol Use Standard Drinks/Week Comments Not Currently 0 (1 standard drink = 0.6 oz pur e alcohol) Comments Unknown Sex and Gender Information Value Date Recorded Sex Assigned at Not on file Legal Sex Female 12:42 PM EDT Gender Identity Not on file Sexual Orientation Not on file Last Filed Vital Signs Vital Sign Reading [...] Mass Index 40.73 12/19/2024 1:33 PM EDT Plan of Treatment Upcoming Encounters Date Type Department Care Team (Late st Contact Info) Description 01/02/2025 1:15 PM EDT Office Visit [facility] 7[address] [facility] [address] [place] [address] Nagi Mcgill MD [address] [facility] [address] [place], [place] [id number] Health Maintenance Due Date Last Done Comments Creatinine Level 1941 Diabetes: Hemoglobin A1C 1941 Echocardiogram 1941 Lipid Panel 1941 Potassium Level 1941 TSH Level 1941 Welcome to Medicare Visit 1941 Diabetes: Retinopathy Screening 1951 DTaP/Tdap/Td Vaccines (1 - Tdap) 1963 Zoster Vaccines (1 of 2) 1991 Bone Density Scan 2006 RSV High Risk: (Elderly (60+ ) or Population) (1 - 1-dose 75+ series) 02/16/2016 COVID-19 Vaccine (2 - 2024-2 6 season) 2024 05/24/2021 Influenza Vaccine (#1) 2024 , 01/24/2023, 02/14/2022 Pneumococcal Vaccine Completed 03/05/2015, 03/08/2011 Diabetes: Urine Protein Screening Discontinued 08/12/2024 HIB Vaccines Aged Out No longer eligi ble based on patient's age to complete this topic HPV Vaccines Aged Out No longer eligi ble based on patient's age to complete this topic Hepatitis A Vaccines Aged Out No long er eligible based on patient's age to complete this topic Hepatitis B Vaccines Aged Out No long er eligible based on patient's age to complete this topic IPV Vaccines Aged Out No longer eligi ble based on patient's age to complete this topic Meningococcal Vaccine Aged Out No jeff cody eligible based on patient's age to complete this topic Rotavirus Vaccines Aged Out No longer eligible based on patient's age to complete this topic Procedures Procedure Name Priority Date/Time Associated Diagnosis Comments OUTSIDE LAB SCAN 11/26/2024 OUTSIDE LAB SCAN 11/26/2024 HOLTER MONITOR 24-48 HOURS - DISPLAY DESIGNER, ANALYZED, AND PHYSICIAN READ Routine 11/25/2024 10:45 AM EDT Near syncope Dizziness and giddiness ECG 12-LEAD Routine 11/21/2024 10:44 AM EDT Encounter to establish care from Last 3 Months Results * OUTSIDE LAB SCAN (11/26/2024) Only the most recent of2 resultswithin the time period is included. Narrative 11/26/2024 Ordered by an unspecified provider. Generic Provider Scanning OUTSIDE SCAN Final Result * HOLTER MONITOR 24-48 HOURS - DISPLAY DESIGNER, ANALYZED, AND PHYSICIAN READ (11/25/2024 10:45 AM EDT) Impressions [facility] - 12/03/2024 1:05 PM EDT Abnormal 48-hour Holter monitor. Predominant sinus rhythm with first-degree AV block. Nocturnal bradycardia with second-degree heart block both type I and II. Isolated PVCs with 4 beat runs of nonsustained ventricular tachycardia. No atrial fibrillation noted. Symptoms of shortness of breath and palpitations. COMMENTS: Clinical correlation is advised. Nagi Mcgill MD [facility] Cardiology Narrative [facility] - 12/03/2024 1:05 PM EDT PROCEDURE: 48 Hour Holter Monitor DATE: 11/25/2024 INDICATION: Palpitations TECHNIQUE / RESULTS: 48-hour Holter monitor was performed with adequate tracings obtained. Average heart rate was 63 bpm. Minimum heart rate was 34 bpm at 4 AM. Maximum heart rate was 102 bpm at 3:16 PM. Predominant rhythm was sinus rhythm with first-degree AV block. Second-degree heart block type I, Wenkeback noted. Second-degree heart block type II noted nocturnally. No atrial fibrillation appreciated. Isolated PVCs. 4 beat runs of nonsustained ventricular tachycardia noted. Symptoms of shortness of breath and palpitations noted. Nagi Mcgill MD CV CARDIAC SERVICES PROCE DURES Final Result Performing Organization Address [facility] de Phone Number CPA * ECG 12 Lead (11/21/2024 10:44 AM EDT) Narrative [facility] - 11/21/2024 4:36 PM EDT Sinus rhythm, low voltage, poor R wave anterior progression, question anterior OK. Rate 70. Nagi Mcgill MD ECG ORDERABLES Final Res ult Performing Organization Address [facility] de Phone Number CPA from Last 3 Months Insurance [employer] [place] [employer] [place] [employer] Care Teams Screwmaker Automatic Relationship Specialty Start Date End Date Rio Murray MD 112 [facility] 110 [place] [address] PCP - General Family Medicine 11/11/24
--- OUTSIDE RECORDS SUMMARY | 2024-12-30 11:56 | XMS_ITS | Encounter Summary ---
Author Organization [facility] Address [address] [facility] [place] [address] Care Team Providers Care Hospital Pharmacy Director Name Role Phone Rio Murray MD Unavailable Rio Murray MD Primary Care Provider Britni Irwin RN Unavailable [phone] Benito Llamas MD Unavailable [phone] Eriberto Hdez DO Unavailable Candice Randle LPN Unavailable Rio Murray MD Unavailable Encounter Details Date Type Department Care Team (Late st Contact Info) Description 04/03/2023 Abstract [facility] [place] [facility] [address] [facility] 110 [place] [address] Rio Murray MD [address] [facility] 110 [place], [place] [id number] Social History Tobacco Use Types Packs/Day Years [...] week 11/01/2022 How often do you attend [facility] or religion services? More than 4 times per year 11/01/2022 Do you belong to any clubs o r organizations such as sabianism groups, unions, fraternal or athletic groups, or [...] and heating? Not hard at all 11/01/2022 [facility] [place] of Occupat ional Health - Occupational Stress [...] place to sleep or slept in a retirement (including now)? No 11/01/2022 Comments Unknown Sex [...] [place] [address] [place] [address] Rio Murray MD [address] [place] [address] 06/05/2025 1:50 PM EST Office Visit [facility] [place] [facility] [address] [place] [address] Zaina Leonardo MD [address] [facility] 350 [place] [id number] documented as of this encounter Visit Diagnoses Not on filedocumented in this encounter Care Teams Hospital Pharmacy Director Relationship Specialty Start Date End Date Rio Murray MD [address] [facility] [address] [place] [address] PCP - Devoted 04/24/20 04/23/24 Rio Murray MD [address] [facility] [address] [place] [address] PCP - General Family Medicine 09/01/22 Rio Murray MD [address] [facility] [address] [place] [address] PCP - Medical [facility] 04/24/2404/23 Britni Irwin, RN [address] [place] [address] Clinical Advocate Family Medicine 05/31/24 07/10/24 Benito Llamas MD [address] [facility] [address] [place] [address] Referring Physician Dermatology 07/03/24 Eriberto Hdez DO [address] [place] [address] Otolaryngology 07/03/24 Candice Randle LPN [address] [facility] 110 [place] [address] 07/10/24 documented as of this encounter
--- OUTSIDE RECORDS SUMMARY | 2024-12-30 11:56 | XMS_ITS | Encounter Summary ---
Author Organization [facility] Address [address] [facility] [place] [address] Care Team Providers Care Bucket Pusher Name Role Phone Rio Murray MD Primary Care Provider Britni Irwin RN Unavailable Benito Llamas MD Unavailable Eriberto Hdez Grace DO Unavailable [phone] Candice Radnle LPN Unavailable Rio Murray MD Unavailable Encounter Details Date Type Department Care Team (Late st Contact Info) Description 05/17/2024 Abstract [facility] [place] [facility] [address] [place] [address] Rio Murray MD [address] [place] [address] Social History Tobacco Use Types Packs/Day Years [...] How often do you attend chur or quaker services? More than 4 times per year 11/01/2022 Do you belong to any clubs o r organizations such as orthodoxy groups, unions, fraternal or athletic groups, or [...] Recorded Patient Health Questionnaire-2 Score 0 05/16/2024 [place] of Occupat ional Health - Occupational Stress [...] EDT Office Visit [facility] [place] [facility] 112 [facility] 110 [place] [address] Rio Murray MD 112 [facility] 110 [place] [address] 06/05/2025 1:50 PM EST Office [facility] [address] [place] [address] Zaina Leonardo MD [address] [place] [address] documented as of this encounter Visit Diagnoses Not on filedocumented in this encounter Care Teams Bucket Pusher Relationship Specialty Start Date End Date Rio Murray MD [address] [place] [address] PCP - General Family Medicine 09/01/22 Rio Murray MD [address] [facility] [address] [place] [address] PCP - Medical [facility] 04/24/2404/23 Britni Irwin, RN [address] [place] [facility] [place] [address] Clinical Advocate Family Medicine 05/31/24 07/10/24 Benito Llamas MD [address] [place] [address] Referring Physician Dermatology 07/03/24 Eriberto Hdez DO [address] [place] [address] Otolaryngology 07/03/24 Candice Randle LPN [address] [place] [address] 07/10/24 documented as of this encounter
--- OUTSIDE RECORDS SUMMARY | 2024-12-30 11:56 | XMS_ITS | Encounter Summary ---
Author Organization [facility] Address [address] [facility] [place] [address] Care Team Providers Care Punchboard Assembler Name Role Phone Rio Murray MD Unavailable Rio Murray MD Primary Care Provider Britni Irwin RN Unavailable Benito Lalmas MD Unavailable [phone] Eriberto Hdez DO Unavailable Candice Randle LPN Unavailable Rio Murray MD Unavailable Encounter Details Date Type Department Care Team (Late st Contact Info) Description 04/03/2023 Abstract [facility] [place] [facility] [address] [facility] 110 [place] [address] Rio Murray MD [address] [place] [facility] 110 [place], [place] [phone] Social History Tobacco Use Types Packs/Day Years [...] week 11/01/2022 How often do you attend [facility] or yarsani services? More than 4 times per year 11/01/2022 Do you belong to any clubs o r organizations such as synagogue groups, unions, fraternal or athletic groups, or [...] and heating? Not hard at all 11/01/2022 [facility] [place] of Occupat ional Health - Occupational Stress [...] place to sleep or slept in a [place] [facility] [place] facility (including now)? No 11/01/2022 Comments Unknown Sex [...] [place] [address] [place] [address] Rio Murray MD [address] [place] [address] 06/05/2025 1:50 PM EST Office Visit [facility] [place] [facility] [address] [place] [address] Zaina Leonardo MD [address] [facility] 350 [place] [phone] documented as of this encounter Visit Diagnoses Not on filedocumented in this encounter Care Teams Punchboard Assembler Relationship Specialty Start Date End Date Rio Murray MD [address] [facility] [address] [place] [address] PCP - Devoted 04/24/20 04/23/24 Rio Murray MD [address] [facility] [address] [place] [address] PCP - General Family Medicine 09/01/22 Rio Murray MD [address] [facility] [address] [place] [address] PCP - Medical [facility] 04/24/2404/23 Britni Irwin, RN [address] [place] [address] Clinical Advocate Family Medicine 05/31/24 07/10/24 Benito Llamas MD [address] [facility] 350 [place] [address] Referring Physician Dermatology 07/03/24 Eriberto Hdez DO [address] [place] [address] Otolaryngology 07/03/24 Candice Randle LPN [address] [facility] 110 [place] [address] 07/10/24 documented as of this encounter
--- OUTSIDE RECORDS SUMMARY | 2024-12-30 11:56 | XMS_ITS | Encounter Summary ---
Author Organization [facility] Address [address] [place] [address] Phone Care Team Providers Care Waterworks Operator Name Role Phone Rio Murray MD Primary Care Provider [phone] Encounter Details Date Type Department Care Team (Late st Contact Info) Description 11/26/2024 Scanned Document [facility] [address] [place] [address] Scanning, Generic Provider Social History Tobacco Use Types Packs/Day Years Used Date Smoking Tobacco: Never Smokeless Tobacco: Never Comments Unknown Sex and Gender Information Value Date Recorded Sex Assigned at Not on file Legal Sex Female 12:42 PM EDT Gender Identity Not on file Sexual Orientation Not on file documented as of this encounter Plan of Treatment Upcoming Encounters Date Type Department Care Team (Late st Contact Info) Description 01/02/2025 1:15 PM EDT Office Visit [facility] 703 [facility] 250 [place] [address] Nagi Mcgill MD 917 [facility] 130 [place] [address] documented as of this encounter Procedures Procedure Name Priority Date/Time Associated Diagnosis Comments OUTSIDE LAB SCAN 11/26/2024 OUTSIDE LAB SCAN 11/26/2024 documented in this encounter Results * OUTSIDE LAB SCAN (11/26/2024) Narrative 11/26/2024 Ordered by an unspecified provider. us Generic Provider Scanning OUTSIDE SCAN Final Result * OUTSIDE LAB SCAN (11/26/2024) Narrative 11/26/2024 Ordered by an unspecified provider. us Generic Provider Scanning OUTSIDE SCAN Final Result documented in this encounter Visit Diagnoses Not on filedocumented in this encounter Additional Health Concerns Assessment Noted Time A fall risk assessment has been complete d for the patient 11/21/2024 11:00 AM EDT documented as of this encounter Care Teams Waterworks Operator Relationship Specialty Start Date End Date Rio Murray MD [address] [facility] 110 [place] [address] PCP - General Family Medicine 11/11/24 documented as of this encounter
--- OUTSIDE RECORDS SUMMARY | 2024-12-30 11:56 | XMS_ITS | Encounter Summary ---
Author Organization [facility] Address [address] [facility] [place] [address] Care Team Providers Care Administrative Resident Name Role Phone Rio Murray MD Unavailable Rio Murray MD Primary Care Provider Britni Irwin RN Unavailable [phone] Benito Llamas MD Unavailable Eriberto Hdez DO Unavailable Candice Randle LPN Unavailable Rio Murray MD Unavailable Encounter Details Date Type Department Care Team (Late st Contact Info) Description 04/03/2023 Abstract [facility] [place] [facility] [address] [facility] 110 [place] [address] Rio Murray MD [address] [facility] 110 [place], [place] [id number] Social History Tobacco Use Types Packs/Day Years [...] week 11/01/2022 How often do you attend [facility] or bahai services? More than 4 times per year 11/01/2022 Do you belong to any clubs o r organizations such as gnosticist groups, unions, fraternal or athletic groups, or [...] and heating? Not hard at all 11/01/2022 [facility] [place] of Occupat ional Health - Occupational Stress [...] place to sleep or slept in a prison (including now)? No 11/01/2022 Comments Unknown Sex [...] [place] Magana [address] [place] [address] Rio Murray MD [address] [place] [address] 06/05/2025 1:50 PM EST Office Visit [facility] [place] [facility] [address] [place] [address] Zaina Leonardo MD [address] [facility] 350 [place] [id number] documented as of this encounter Visit Diagnoses Not on filedocumented in this encounter Care Teams Administrative Resident Relationship Specialty Start Date End Date Rio Murray MD [address] [facility] 110 [place] [address] PCP - Devoted 04/24/20 04/23/24 Rio Murray MD [address] [facility] 110 [place] [address] PCP - General Family Medicine 09/01/22 Rio Murray MD [address] [facility] 110 [place] [address] PCP - Medical [facility] 04/24/2404/23 Britni Irwin, RN [address] [place] [address] Clinical [facility] Family Medicine 05/31/24 07/10/24 Benito Llamas MD [address] [facility] 350 [place] [address] Referring Physician Dermatology 07/03/24 Eriberto Hdez DO [address] [place] [address] Otolaryngology 07/03/24 Candice Randle LPN [address] [facility] 110 [place] [address] 07/10/24 documented as of this encounter
--- OUTSIDE RECORDS SUMMARY | 2024-12-30 11:56 | XMS_ITS | Encounter Summary ---
Author Organization [facility] Address [address] [facility] [place] [address] Care Team Providers Care Senior Mechanical Project Manager Name Role Phone Rio Murray MD Primary Care Provider [phone] Britni Irwin RN Unavailable Benito Llamas MD Unavailable Eriberto Hdez Grace DO Unavailable Candice Randle LPN Unavailable Rio Murray MD Unavailable Encounter Details Date Type Department Care Team (Late st Contact Info) Description 06/24/2024 Abstract [facility] [place] [facility] [address] [place] [address] [place] [address] Rio Murray MD [address] [place] [address] Social History Tobacco Use Types Packs/Day Years [...] How often do you attend chur or roman catholic services? More than 4 times per year 11/01/2022 Do you belong to any clubs o r organizations such as quaker groups, unions, fraternal or athletic groups, or [...] Recorded Patient Health Questionnaire-2 Score 0 05/16/2024 [place] of Occupat ional Health - Occupational Stress [...] place to sleep or slept in a long term (including now)? No 11/01/2022 Comments Unknown Sex [...] EDT Office Visit [facility] [place] [facility]ana [address] [facility] 110 [place] [address] Rio Murray MD 112 [facility] 110 [place] [address] 06/05/2025 1:50 PM EST Office [facility] [address] [place] [address] Zaina Leonardo MD [address] [place] [address] documented as of this encounter Visit Diagnoses Not on filedocumented in this encounter Care Teams Senior Mechanical Project Manager Relationship Specialty Start Date End Date Rio Murray MD [address] [place] [place] [address] PCP - General Family Medicine 09/01/22 Rio Murray MD [address] [facility] 110 [place] [address] PCP - Medical [facility] 04/24/2404/23 Britni Irwin, RN [address] [place] [address] Clinical Advocate Family Medicine 05/31/24 07/10/24 Benito Llamas MD [address] [place] [place] [address] Referring Physician Dermatology 07/03/24 Eriberto Hdez DO [address] [place] [address] Otolaryngology 07/03/24 Candice Randle LPN [address] [place] [address] 07/10/24 documented as of this encounter
--- OUTSIDE RECORDS SUMMARY | 2024-12-30 11:56 | XMS_ITS | Encounter Summary ---
Author Organization [facility] Address [address] [place] [address] Phone Care Team Providers Care Bellows Filler Name Role Phone Rio Murray MD Primary Care Provider [phone] Encounter Details Date Type Department Care Team (Late st Contact Info) Description 12/20/[address] [place] [address] Luisana Moon LPN Social History Tobacco Use Types Packs/Day Years [...] on file documented as of this encounter Miscellaneous Notes * Telephone Encounter - Luisana Moon LPN - 12/20/2024 2:43 PM EDT Patient phoned in to update med list, reports she uses additional insulin BID lyumjev. Med list updated. documented in this encounter Plan of Treatment Upcoming Encounters Date Type Department Care Team (Late st Contact Info) Description 01/02/2025 1:15 PM EDT Office Visit [facility] 703 [facility] 250 [place] [address] Nagi Mcgill MD 917 [facility] 130 [place], [place] [phone] documented as of this encounter Visit Diagnoses Not on filedocumented in this encounter Additional Health Concerns Assessment Noted Time A fall risk assessment has been complete d for the patient 11/21/2024 11:00 AM EDT documented as of this encounter Care Teams Bellows Filler Relationship Specialty Start Date End Date Rio Murray MD 112 [facility] 110 [place] [address] PCP - General Family Medicine 11/11/24 documented as of this encounter
--- OUTSIDE RECORDS SUMMARY | 2024-12-30 11:56 | XMS_ITS | Encounter Summary ---
Author Organization [facility] Address [address] [facility] [place] [address] Care Team Providers Care Hair And Makeup Designer Name Role Phone Rio Murray MD Primary Care Provider Britni Irwin RN Unavailable Benito Llamas MD Unavailable Eriberto Hdez Grace DO Unavailable Candice Randle LPN Unavailable Rio Murray MD Unavailable Encounter Details Date Type Department Care Team (Late st Contact Info) Description 07/02/2024 Abstract [facility] [place] [facility] [address] [place] [address] [place] [address] Rio Murray MD [address] [place] [address] Social History Tobacco Use Types Packs/Day Years [...] How often do you attend chur or shinto services? More than 4 times per year 11/01/2022 Do you belong to any clubs o r organizations such as jehovah's witness groups, unions, fraternal or athletic groups, or [...] Recorded Patient Health Questionnaire-2 Score 0 05/16/2024 [place] of Occupat ional Health - Occupational Stress [...] EDT Office Visit [facility] [place] [facility] 112 [facility] 110 [place] [address] Rio Murray MD 112 [facility] 110 [place] [address] 06/05/2025 1:50 PM EST Office Visit [facility] [address] [place] [address] Zaina Leonardo MD [address] [place] [address] documented as of this encounter Visit Diagnoses Not on filedocumented in this encounter Care Teams Hair And Makeup Designer Relationship Specialty Start Date End Date Rio Murray MD [address] [place] [address] PCP - General Family Medicine 09/01/22 Rio Murray MD [address] [facility] 110 [place] [address] PCP - Medical [facility] 04/24/2404/23 Britni Irwin, RN [address] [place] [facility] [place] [address] Clinical Advocate Family Medicine 05/31/24 07/10/24 Benito Llamas MD [address] [place] [place] [address] Referring Physician Dermatology 07/03/24 Eriberto Hdez DO [address] [place] [address] Otolaryngology 07/03/24 Candice Randle LPN [address] [place] [address] 07/10/24 documented as of this encounter
--- OUTSIDE RECORDS SUMMARY | 2024-12-30 11:56 | XMS_ITS | Encounter Summary ---
Author Organization [facility] Address [address] [place] [address] Phone Care Team Providers Care Doll Repairer Name Role Phone Rio Murray MD Primary Care Provider [phone] Encounter Details Date Type Department Care Team (Latest Contact Info) Description 12/19/2024 Travel Social History Tobacco Use Types Packs/Day Years [...] Description 01/02/2025 1:15 PM EDT Office Visit [facility] [address] [facility] 250 [place] [address] Nagi Mcgill MD 917 [facility] 130 [place] [address] documented as of this encounter Visit Diagnoses Not on filedocumented in this encounter Additional Health Concerns Assessment Noted Time A fall risk assessment has been complete d for the patient 11/21/2024 11:00 AM EDT documented as of this encounter Care Teams Doll Repairer Relationship Specialty Start Date End Date Rio Murray MD 112 [facility] 110 [place] [address] PCP - General Family Medicine 11/11/24 documented as of this encounter
--- OUTSIDE RECORDS SUMMARY | 2024-12-30 11:56 | XMS_ITS | Encounter Summary ---
Author Organization [facility] Address [address] [place] [address] Care Team Providers Care Domestic Violence Counselor Name Role Phone Rio Murray MD Primary Care Provider Britni Irwin RN Unavailable [phone] Benito Llamas MD Unavailable Eriberto Hdez DO Unavailable Candice Randle LPN Unavailable Rio Murray MD Unavailable Encounter Details Date Type Department Care Team (Late st Contact Info) Description 06/24/2024 External Result Encounter NOM[facility] External Department Unsolicited Korey Peacock, [address] [place] [address] Social History Tobacco Use Types Packs/Day Years [...] week 11/01/2022 How often do you attend [facility] or mu-ism services? More than 4 times per year 11/01/2022 Do you belong to any clubs o r organizations such as shinto groups, unions, fraternal or athletic groups, or [...] Recorded Patient Health Questionnaire-2 Score 0 05/16/2024 [facility] of Occupat ional Health - Occupational Stress [...] place to sleep or slept in a usp (including now)? No 11/01/2022 Comments Unknown Sex [...] Visit [facility] [place] Magana [address] [facility] 110 [place] [address] Rio Murray MD [address] [facility] 110 [place] [address] 06/05/2025 1:50 PM EST Office Visit [facility] [address] [place] [address] Zaina Leonardo MD [address] [place] [address] documented as of this encounter Procedures Procedure Name Priority Date/Time Associated Diagnosis Comments ECG 12-LEAD 06/24/2024 10:16 AM EST documented in this encounter Results * ECG 12 lead (06/24/2024 10:16 AM EST) 06/24/2024 10:1 6 AM EST Narrative [facility] - 06/24/2024 6:35 PM EST [address] [address] Electrocardiograph Report Signed Patient: Willie Gonzalez MR#: [id number] 6 : 1940 Acct:[id number] Age/Sex: 84 / F ADM Date: 06/24/24 Loc: Room: Type: [facility] Attending Dr: Korey Peacock DO Ordering Provider: Korey Peacock DO Date of Service: 06/24/2407/17/955 ECG/ECG 12 [...] Otherwise normal ECG Confirmed by Jaylene Betancourt ([id number]) on 06/24/2024 6:34:53 PM Referred By: Electronically Signed By: Jaylene Betancourt Transcribed By: MUS Signed By Jaylene Betancourt MD [id number] Procedure Note Jaylene Betancourt MD - 06/24/2024 [address] [place] [address] Electrocardiograph Report Signed Patient: Willie Gonzalez LMR#: [id number] 6 : 1940cct:[id number] Age/Sex: 84 / FADM Date: 06/24/24 Loc: PS Room:Type: [facility] Attending Dr: Korey Peacock DO Ordering Provider: Korey Peacock DO Date of Service: 06/24/2407/17/955 ECG/ECG 12 [...] Otherwise normal ECG Confirmed by Jaylene Betancourt ([id number]) on 06/24/2024 6:34:53 PM Referred By: Electronically Signed By: Jaylene Betancourt Transcribed By: MUS Signed By Jaylene Betancourt MD 5 [id number] us Korey Peacock DO ECG ORDERABLES Final Resul t Performing Organization Address City/State/[facility] Co de Phone Number [address] [address], documented in this encounter Visit Diagnoses Not on filedocumented in this encounter Care Teams Domestic Violence Counselor Relationship Specialty Start Date End Date Rio Murray MD [address] [facility] 110 [place] [address] PCP - General Family Medicine 09/01/22 Rio Murray MD [address] [facility] 110 [place] [address] PCP - Medical [place] 04/24/2404/23 Britni Irwin, RN [address] [place] [address] Clinical Advocate Family Medicine 05/31/24 07/10/24 Benito Llamas MD [address] [facility] 350 [place] [address] Referring Physician Dermatology 07/03/24 Eriberto Hdez DO [address] [place] [address] Otolaryngology 07/03/24 Candice Randle LPN 112 [facility] 110 [place] [address] 07/10/24 documented as of this encounter
--- OUTSIDE RECORDS SUMMARY | 2024-12-30 11:56 | XMS_ITS | Encounter Summary ---
Author Organization [facility] Address [address] [place] [address] Care Team Providers Care Control Panel Builder Name Role Phone Rio Thayer MD Unavailable Rio Thayer MD Primary Care Provider Britni Irwin RN Unavailable [phone] Benito Llamas MD Unavailable Eriberto Hdez DO Unavailable [phone] Candice Randle LPN Unavailable Rio Thayer MD Unavailable Encounter Details Date Type Department Care Team (Late st Contact Info) Description 05/22/2023 Clinisync Result Encounter NOMS External Department Unsolicited Rio Thayer MD 112 [facility] 110 [place], [place] [address] Social History Tobacco Use Types Packs/Day Years [...] 11/01/2022 How often do you attend chur ch or methodist services? More than 4 times per year 11/01/2022 Do you belong to any clubs o r organizations such as islam groups, unions, fraternal or athletic groups, or [...] and heating? Not hard at all 11/01/2022 [facility] [place] of Occupat ional Health - Occupational Stress [...] place to sleep or slept in a group home (including now)? No 11/01/2022 Comments Unknown [...] 10:30 AM EDT Office Visit [facility] [place] [facility] [address] [facility] 110 [place] [address] Rio Thayer MD [address] [facility] 110 [place] [address] 06/05/2025 1:50 PM EST Office Visit [facility] [address] [place] [place] [address] Zaina Leonardo MD [address] [place] [address] documented as of this encounter Procedures Procedure Name Priority Date/Time Associated Diagnosis Comments NM DEANNA PERF SPECT REST STR 05/22/2023 2:17 PM EST documented in this encounter Results * NM DEANNA PERF SPECT REST STR (05/22/2023 2:17 PM EST) Anatomical Region Laterality Modality Other 05/22/2023 2:17 PM EST Narrative 05/22/2023 2:18 [place] [address] Nuclear Medicine Report Signed Patient: WILLIE ESPINOSA MR#: [id number] : 1940 Acct:[id number] Age/Sex: 83 / F ADM Date: 05/22/23 Loc: [place] Attending Dr: RIO THAYER Ordering Physician: RIO THAYER Date of Service: 05/22/23 Procedure(s): NM deanna perf SPECT rest str Accession Number(s): [id number] cc: RIO THAYER Patient Name: WILLIE ESPINOSA MR#: [id number] : 1940 Exam Date: 05/22/2023 Ordering Doctor: DR RIO THAYER M.D. RADIOLOGY REPORT PROCEDURE: NM DEANNA PERF SPECT REST STR COMPARISON: None. INDICATIONS: CHEST PAIN DUE TO MYOCARDIAL ISCHEMIA, DM TYPE 2 TECHNIQUE: Exam Description: Stress/Rest one day protocol gated SPECT Rest Imagin.2 mCi Tc-99m Cardiolite IV on 05/22/2023 Stress Imaging 31.0 mCi Tc-99m Cardiolite IV on 05/22/2023 Exercise Protocol: 0.4 mg Lexiscan given IV Heart Rate (bpm): Rest: 59 Max: 87 PMHR: 63 Blood Pressure: Rest: 122/60 Max: 134/66 Symptoms: Rest and peak stress ECG findings were normal and the exercise portion of the study was normal per attending physician Dr. Galan . For more details please see separate cardiac stress test report. FINDINGS: QUALITY OF STUDY: Good. PERFUSION DEFECT: None. LOCATION: N/A SIZE: N/A. SEVERITY: N/A. TYPE: N/A. WALL MOTION: Normal. LV SIZE: Normal. 51 mL. TID / TCD: None; 0.6 LVEF: Normal. Calculated EF 82%. SUMMARY: Myocardial perfusion imaging study is NORMAL. CONCLUSION: 1. Normal exam, No reversible ischemia 2. Normal exercise test Dictated by: Alex Trujillo MD on 05/22/2023 at 14:16 Approved by: Alex Trujillo MD on 05/22/2023 at 14:17 Dictated By: Alex Trujillo M.D. Signed By: 05/22/23 1418 DD/ 1417 TD/TT: Pelt Grader: Procedure Note Radiology, Radiologist, - 05/22/2023 [place] [address] Nuclear Medicine Report Signed Patient: WILLIE ESPINOSA LMR#: [id number] : 1940cct:[id number] Age/Sex: 83 / FADM Date: 05/22/23 Loc: [place] Attending Dr: RIO THAYER Ordering Physician: RIO THAYER Date of Service: 05/22/23 Procedure(s): NM deanna perf SPECT rest str Accession Number(s): [id number] cc: RIO THAYER Patient Name: WILLIE ESPINOSA MR#: [id number] : 1940 Exam Date: 05/22/2023 Ordering Doctor: DR RIO THAYER M.D. RADIOLOGY REPORT PROCEDURE: NM DEANNA PERF SPECT REST STR COMPARISON: None. INDICATIONS: CHEST PAIN DUE TO MYOCARDIAL ISCHEMIA, DM TYPE 2 TECHNIQUE: Exam Description: Stress/Rest one day protocol gated SPECT Rest Imagin.2 mCi Tc-99m Cardiolite IV on 05/22/2023 Stress Imaging 31.0 mCi Tc-99m Cardiolite IV on 05/22/2023 Exercise Protocol: 0.4 mg Lexiscan given IV Heart Rate (bpm): Rest: 59 Max: 87 PMHR: 63 Blood Pressure: Rest: 122/60 Max: 134/66 Symptoms: Rest and peak stress ECG findings were normal and the exercise portion ofthe study was normal per attending physician Dr. Galan . For more details please see separate cardiac stress test report. FINDINGS: QUALITY OF STUDY: Good. PERFUSION DEFECT: None. LOCATION: N/A SIZE: N/A. SEVERITY: N/A. TYPE: N/A. WALL MOTION: Normal. LV SIZE: Normal. 51 mL. TID / TCD: None; 0.6 LVEF: Normal. Calculated EF 82%. SUMMARY: Myocardial perfusion imaging study is NORMAL. CONCLUSION: 1. Normal exam, No reversible ischemia 2. Normal exercise test Dictated by: Alex Trujillo MD on 05/22/2023 at 14:16 Approved by: Alex Trujillo MD on 05/22/2023 at 14:17 Dictated By: Alex Trujillo M.D. Signed By:05/22/23 1418 DD/ 141 TD/TT: Pelt Grader: Rio Thayer MD [facility] Final Result documented in this encounter Visit Diagnoses Not on filedocumented in this encounter Care Teams Control Panel Builder Relationship Specialty Start Date End Date Rio Thayer MD [address] [facility] 110 [place] [address] PCP - Devoted 04/24/20 04/23/24 Rio Thayer MD [address] [facility] 110 [place] [address] PCP - General Family Medicine 09/01/22 Rio Thayer MD [address] [facility] 110 [place] [address] PCP - Medical [facility] 04/24/2404/23 Britni Irwin, LINO [address] [place] [address] Clinical Advocate Family Medicine 05/31/24 07/10/24 Benito Llamas MD [address] [facility] 350 [place], [place] [address] Referring Physician Dermatology 07/03/24 Eriberto Hdez, [address] [place] [address] Otolaryngology 07/03/24 Candice Randle LPN [address] [facility] 110 [place] [address] 07/10/24 documented as of this encounter
--- OUTSIDE RECORDS SUMMARY | 2024-12-30 11:56 | XMS_ITS | Encounter Summary ---
Author Organization [facility] Address [address] [place] [address] Care Team Providers Care Extrusion Die Repair Manager Name Role Phone Rio Murray MD Unavailable Rio Murray MD Primary Care Provider Britni Irwin RN Unavailable [phone] Benito Llamas MD Unavailable [phone] Eriberto Hdez DO Unavailable Candice Randle LPN Unavailable Rio Murray MD Unavailable Encounter Details Date Type Department Care Team (Late st Contact Info) Description 04/03/2023 Orders Only [facility] [address] [place] [address] A, Unknown Practice [address] [place] [address] Social History Tobacco Use Types Packs/Day Years [...] How often do you attend chur or alevism services? More than 4 times per year 11/01/2022 Do you belong to any clubs o r organizations such as catholic groups, unions, fraternal or athletic groups, or [...] and heating? Not hard at all 11/01/2022 [facility] [place] of Occupat ional Health - Occupational Stress [...] place to sleep or slept in a intermediate (including now)? No 11/01/2022 Comments Unknown Sex and Gender Information Value Date Recorded Sex Assigned at Not on file Legal Sex Female 6:59 PM EDT Gender Identity Not on file Sexual Orientation Not on file documented as of this encounter Plan of Treatment Upcoming Encounters Date Type Department Care Team (Late st Contact Info) Description 02/10/2025 10:30 AM EDT Office Visit [facility] [place] [facility] [address] [place] [address] Rio Murray MD [address] [place] [address] 06/05/2025 1:50 PM EST Office Visit [facility] [address] [place] [address] Zaina Leonardo MD [address] [facility] 350 [place] [address] documented as of this encounter Procedures Procedure Name Priority Date/Time Associated Diagnosis Comments VASC US CAROTID ARTERY DUPLEX BILATERAL Routine 04/01/2023 11:14 AM EST XR CHEST 1 VIEW Routine 03/31/2023 10:45 AM EST ELECTROCARDIOGRAM REPORT Routine 023 9:14 AM EST documented in this encounter Results * Vascular US carotid artery duplex bilateral (04/01/2023 11:14 AM EST) Anatomical Region Laterality Modality Neck Ultrasound us Unknown Practice A IMG US PROCEDURES Final Resul t * XR chest 1 view (03/31/2023 10:45 AM EST) Anatomical Region Laterality Modality Chest Radiographic Lucila ging us Unknown Practice A IMG XR PROCEDURES Final Resul t * Electrocardiogram Report (03/31/2023 9:14 AM EST) us Unknown Practice A IN CLINIC/BEDSIDE ORDERABLES Final Result documented in this encounter Visit Diagnoses Not on filedocumented in this encounter Care Teams Extrusion Die Repair Manager Relationship Specialty Start Date End Date Rio Murray MD [address] [facility] 110 [place] [address] PCP - Devoted 04/24/20 04/23/24 Rio Murray MD [address] [facility] 110 [place] [address] PCP - General Family Medicine 09/01/22 Rio Murray MD [address] [facility] 110 [place] [address] PCP - Medical [facility] 04/24/2404/23 Britni Irwin, LINO [address] [place], [place] [address] Clinical Advocate Family Medicine 05/31/24 07/10/24 Benito Llamas MD [address] [facility] 350 [place] [address] Referring Physician Dermatology 07/03/24 Eriberto Hdez DO [address] [place] [address] Otolaryngology 07/03/24 Candice Randle LPN [address] [facility] 110 [place] [address] 07/10/24 documented as of this encounter
--- OUTSIDE RECORDS SUMMARY | 2024-12-30 11:57 | XMS_ITS | Encounter Summary ---
Author Organization [facility] Address [address] [facility] [place] [address] Care Team Providers Care Chemist Proteins Name Role Phone Rio Murray MD Primary Care Provider Benito Llamas MD Unavailable Eriberto Hdez DO Unavailable Candice Randle LPN Unavailable Rio Murray MD Unavailable Encounter Details Date Type Department Care Team (Late st Contact Info) Description 11/22/2024 Abstract [facility] [place] [facility] [address] [facility] 110 [place] [phone] Rio Murray MD [address] [facility] 110 [place], [place] [id number] Social History Tobacco Use Types Packs/Day Years [...] week 11/01/2022 How often do you attend [facility] or faith services? More than 4 times per year 11/01/2022 Do you belong to any clubs o r organizations such as sabianist groups, unions, fraternal or athletic groups, or [...] Date Recorded Patient Health Questionnaire-2 Score 0 11/11/2024 [facility] of Occupat ional Health - Occupational Stress [...] place to sleep or slept in a senior living (including now)? No 11/01/2022 Comments Unknown Sex and Gender Information Value Date Recorded Sex Assigned at Not on file Legal Sex Female 6:59 PM EDT Gender Identity Not on file Sexual Orientation Not on file documented as of this encounter Plan of Treatment Upcoming Encounters Date Type Department Care Team (Late st Contact Info) Description 02/10/2025 10:30 AM EDT Office Visit [facility] 112 [facility] 110 [place] [address] Rio Murray MD 112 [facility] 110 [place] [address] 06/05/2025 1:50 PM EST Office Visit [facility] [address] [place] [address] Zaina Leonardo MD [address] [place] [address] documented as of this encounter Visit Diagnoses Not on filedocumented in this encounter Care Teams Chemist Proteins Relationship Specialty Start Date End Date Rio Murray MD [address] [facility] 110 [place] [address] PCP - General Family Medicine 09/01/22 Rio Murray MD [address] [facility] 110 [place] [address] PCP - Medical [facility] 04/24/2404/23 Benito Llamas MD [address] [place] [address] Referring Physician Dermatology 07/03/24 Eriberto Hdez DO [address] [place] [address] Otolaryngology 07/03/24 Candice Randle LPN [address] [facility] 110 [place] [address] 07/10/24 documented as of this encounter
--- OUTSIDE RECORDS SUMMARY | 2024-12-30 11:57 | XMS_ITS | Encounter Summary ---
Author Organization [facility] Address [address] [facility] [place] [address] Care Team Providers Care Ent Nurse Name Role Phone Rio Murray MD Unavailable Rio Murray MD Primary Care Provider [phone] Britni Irwin RN Unavailable Benito Llamas MD Unavailable [phone] Eriberto Hdez DO Unavailable Candice Randle LPN Unavailable Rio Murray MD Unavailable Encounter Details Date Type Department Care Team (Late st Contact Info) Description 01/05/2023 Abstract [facility] [place] [facility] [address] [facility] 110 [place] [address] Rio Murray MD 112 [facility] 110 [place], [place] [id number] Social History Tobacco Use Types Packs/Day Years Used Date Smoking Tobacco: Never Smokeless Tobacco: Never Tobacco Cessation:Counseling Given: Not Answered Alcohol Use Standard Drinks/Week Comments Never 0 [...] How often do you attend [facility] or pentecostal services? More than 4 times per year 11/01/2022 Do you belong to any clubs o r organizations such as adventism groups, unions, fraternal or athletic groups, or [...] and heating? Not hard at all 11/01/2022 [facility] [place] of Occupat ional Health - Occupational Stress [...] [facility] [place] [facility] [address] [facility] 110 [place] [address] Rio Murray MD [address] [facility] 110 [place] [address] 06/05/2025 1:50 PM EST Office Visit [facility] [place] [facility] [address] [place] [address] Zaina Leonardo MD [address] [place] [address] documented as of this encounter Visit Diagnoses Not on filedocumented in this encounter Care Teams Ent Nurse Relationship Specialty Start Date End Date Rio Murray MD [address] [place] [address] PCP - Devoted 04/24/20 04/23/24 Rio Murray MD [address] [facility] 110 [place] [address] PCP - General Family Medicine 09/01/22 Rio Murray MD [address] [facility] 110 [place] [address] PCP - Medical [facility] 04/24/2404/23 Britni Irwin, RN [address] [facility] [place] [address] Clinical Advocate Family Medicine 05/31/24 07/10/24 Benito Llamas MD [address] [place] [address] Referring Physician Dermatology 07/03/24 Eriberto Hdez DO [address] [place] [address] Otolaryngology 07/03/24 Candice Randle LPN [address] [place] [address] 07/10/24 documented as of this encounter
--- OUTSIDE RECORDS SUMMARY | 2024-12-30 11:57 | XMS_ITS | Encounter Summary ---
Author Organization [facility] Address [address] [facility] [place] [address] Care Team Providers Care Youth Director Name Role Phone Rio Murray MD Primary Care Provider Britni Irwin RN Unavailable [phone] Benito Llamas MD Unavailable Eriberto Hdez Grace DO Unavailable Candice Randle LPN Unavailable Rio Murray MD Unavailable Encounter Details Date Type Department Care Team (Late st Contact Info) Description 06/06/[address] [place] [facility] [address] [place] [address] Rio Murray MD [address] [place] [address] Social History Tobacco Use Types Packs/Day Years [...] How often do you attend chur or latter-day services? More than 4 times per year [...] Recorded Patient Health Questionnaire-2 Score 0 05/16/2024 [facility] of Occupat ional Health - Occupational Stress [...] place to sleep or slept in a fci (including now)? No 11/01/2022 Comments Unknown Sex [...] EDT Office Visit [facility] [place] [facility] 112 [facility] 110 [place] [address] Rio Murray MD 112 [facility] [address] [place] [address] 06/05/2025 1:50 PM EST Office Visit [facility] [address] [place] [address] Zaina Leonardo MD [address] [place] [address] documented as of this encounter Visit Diagnoses Not on filedocumented in this encounter Care Teams Youth Director Relationship Specialty Start Date End Date Rio Murray MD [address] [place] [address] PCP - General Family Medicine 09/01/22 Rio Murray MD [address] [facility] 110 [place] [address] PCP - Medical [facility] 04/24/2404/23 Britni Irwin, RN [address] [place] [facility] [place] [address] Clinical Advocate Family Medicine 05/31/24 07/10/24 Benito Llamas MD [address] [place] [address] Referring Physician Dermatology 07/03/24 Eriberto Hdez DO [address] [place] [address] Otolaryngology 07/03/24 Candice Ranlde LPN [address] [place] [address] 07/10/24 documented as of this encounter
--- OUTSIDE RECORDS SUMMARY | 2024-12-30 11:57 | XMS_ITS | Encounter Summary ---
Author Organization [facility] Address [address] [facility] [place] [address] Care Team Providers Care Seam Press Operator Name Role Phone Rio Murray MD Unavailable Rio Murray MD Primary Care Provider Britni Irwin RN Unavailable [phone] Benito Llamas MD Unavailable Eriberto Hdez DO Unavailable Candice Randle LPN Unavailable Rio Murray MD Unavailable Encounter Details Date Type Department Care Team (Late st Contact Info) Description 02/07/2023 Abstract [facility] [place] [facility] [address] [facility] 110 [place] [address] Rio Murray MD 112 [facility] 110 [place], [place] [phone] Social History Tobacco Use Types Packs/Day Years [...] week 11/01/2022 How often do you attend [facility] [place] or episcopal services? More than 4 times per year [...] and heating? Not hard at all 11/01/2022 [facility] of Occupat ional Health - Occupational Stress [...] [facility] [place] [facility] [address] [facility] 110 [place] [address] Rio Murray MD [address] [facility] 110 [place] [address] 06/05/2025 1:50 PM EST Office Visit [facility] [place] [facility] [address] [place] [address] Zaina Leonardo MD [address] [place] [address] documented as of this encounter Visit Diagnoses Not on filedocumented in this encounter Care Teams Seam Press Operator Relationship Specialty Start Date End Date Rio Murray MD [address] [place] [address] PCP - Devoted 04/24/20 04/23/24 Rio Murray MD [address] [facility] 110 [place] [address] PCP - General Family Medicine 09/01/22 Rio Murray MD [address] [facility] [address] [place] [address] PCP - Medical [facility] 04/24/2404/23 Britni Irwin, RN [address] [facility] [place] [address] Clinical Advocate Family Medicine 05/31/24 07/10/24 Benito Llamas MD [address] [place] [address] Referring Physician Dermatology 07/03/24 Eriberto Hdez DO [address] [place] [address] Otolaryngology 07/03/24 Candice Randle LPN [address] [place] [address] 07/10/24 documented as of this encounter
--- OUTSIDE RECORDS SUMMARY | 2024-12-30 11:57 | XMS_ITS | Encounter Summary ---
Author Organization [facility] Address [address] [facility] [place] [address] Care Team Providers Care Bobbin Painter Name Role Phone Rio Murray MD Unavailable Rio Murray MD Primary Care Provider Britni Irwin RN Unavailable [phone] Benito Llamas MD Unavailable Eriberto Hdez DO Unavailable Candice Randle LPN Unavailable Rio Murray MD Unavailable Encounter Details Date Type Department Care Team (Late st Contact Info) Description 08/15/[address] [place] [facility] [address] [facility] 110 [place] [address] Rio Murray MD [address] [facility] 110 [place], [place] [id number] Social History Tobacco Use Types Packs/Day Years [...] week 11/01/2022 How often do you attend [facility] or gnosticism services? More than 4 times per year 11/01/2022 Do you belong to any clubs o r organizations such as baptist groups, unions, fraternal or athletic groups, or [...] Date Recorded Patient Health Questionnaire-2 Score 0 08/08/2023 [facility] of Occupat ional Health - Occupational Stress [...] place to sleep or slept in a fdc (including now)? No 11/01/2022 Comments Unknown Sex [...] Visit [facility] [place] [facility] [address] [facility] [address] [place] [address] Rio Murray MD [address] [facility] 110 [place] [address] 06/05/2025 1:50 PM EST Office Visit [facility] [place] [facility] [address] [place] [address] Zaina Leonardo MD [address] [place] [address] documented as of this encounter Visit Diagnoses Not on filedocumented in this encounter Care Teams Bobbin Painter Relationship Specialty Start Date End Date Rio Murrya MD [address] [place] [address] PCP - Devoted 04/24/20 04/23/24 Rio Murray MD [address] [facility] 110 [place] [address] PCP - General Family Medicine 09/01/22 Rio Murray MD [address] [facility] 110 [place] [address] PCP - Medical [facility] 04/24/2404/23 Britni Irwin, RN [address] [place], [place] [phone] Clinical Advocate Family Medicine 05/31/24 07/10/24 Benito Llamas MD [address] [place] [address] Referring Physician Dermatology 07/03/24 Eriberto Hdez DO [address] [place] [address] Otolaryngology 07/03/24 Candice Randle LPN [address] [facility] 110 [place] [address] 07/10/24 documented as of this encounter
--- OUTSIDE RECORDS SUMMARY | 2024-12-30 11:57 | XMS_ITS | Clinical Summary ---
Author Organization [facility] Address [id number] [address] [place] [address] Care Team Providers Care Neurologist Name Role Phone Angelo Llanes DO Primary Care Provider [phone] Allergies Active Allergy Reactions Criticality Noted Date Comments Gabapentin Hallucinations 08/01/2016 Medications atorvastatin (LIPITOR) 40 mg tablet Take 40 mg by mouth daily. Active baclofen (LIORESAL) 10 mg tablet Take 10 mg by mouth 3 (three) times a day. Active omega-3 fatty acids-fish oil (FISH OIL) 300-1,000 mg capsule Take 2 g by mouth 2 (two) times a day. Active glipiZIDE (GLUCOTROL) 10 mg tablet Take 10 mg by mouth 2 (two) times a day before meals. Take two tablets twice a day Active propranolol (INDERAL) 60 mg tablet Take 60 mg by mouth 2 (two) times a day. Active benzonatate (TESSALON) 100 mg capsule Take 100 mg by mouth 3 (three) times a day as needed for cough. Active fluticasone-sod chl-sod bicarb 50 mcg- 0.9 % kit,spray suspension and spray Administer into each nostril daily as needed. Active losartan (COZAAR) 25 mg tablet Take 25 mg by mouth daily. Active acetaminophen (TYLENOL) 500 mg tablet Take 500 mg by mouth every 6 (six) hours as needed for pain. Active cholecalciferol , vitamin D3, 50,000 units tablet Take by mouth every 14 (fourteen) days. Take every two weeks Active insulin detemir (LEVEMIR FLEXTOUCH) 100 unit/mL (3 mL) insulin pen Inject 65 Units under the skin daily. Active ACCU-CHEK MEME PLUS TEST STRP strip 7 Active ACCU-CHEK SOFTCLIX LANCETS lancets 7 Active UNIFINE PENTIPS 32 gauge x /32 needle use with insulin pen(s) twice daily 1 7 Active traMADol (ULTRAM) 50 mg tablet Take 50 mg by mouth every 6 (six) hours as needed for pain. Active hydroCHLOROthia zide (HYDRODIURIL) 25 mg tablet Take 25 mg by mouth daily. Active albuterol (VENTOLIN HFA) 90 mcg/actuation inhaler Inhale 2 puffs every 6 (six) hours as needed for wheezing. 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 Family History Medical History Relation Name Comments Diabetes Father Cancer Mother Heart disease Mother Relation Name Status Comments Father Mother Social History Tobacco Use Types Packs/Day Years Used Date Smoking Tobacco: Former Smokeless Tobacco: Never Alcohol Use Standard Drinks/Week Comments Yes 0 (1 standard drink = 0.6 oz pur e alcohol) rarely Childcare Answer Date Recorded Childcare Unknown 10/03/2018 Employment Answer Date Recorded Employment Unknown 10/03/2018 Purpose - Life Answer Date Recorded Purpose and direction in life Unknown Comments No Sex and Gender Information Value Date Recorded Sex Assigned at Not on file Legal Sex Female 11:25 AM EDT Gender Identity Not on file Sexual Orientation Not on file Last Filed Vital Signs Vital Sign Reading Time Taken Comments Blood Pressure 131/70 01/18/2017 1:20 PM EDT Pulse 68 01/18/2017 1:20 PM EDT Temperature 36.2 C (97.1 F) 10/31/2016 9:56 AM EDT Respiratory Rate 22 01/18/2017 1:20 PM EDT Oxygen Saturation 100% 10/31/2016 10:39 AM EDT Inhaled Oxygen Concentration - - Weight 83.9 kg (185 lb) 02/03/2017 7:58 AM EDT Height 147.3 cm (4' 10 ) 01/18/2017 1:20 PM EDT Body Mass Index 38.67 01/18/2017 1:20 PM EDT Plan of Treatment Health Maintenance Due Date Last Done Comments Depression Screening 1952 Tobacco Screening 1952 DTaP,Tdap and Td Vaccines (1 - Tdap) 02/16/1960 Zoster (Shingles) Vaccine (1 of 2) 1991 Fall Risk Screening 2006 Influenza Vaccine 12/23/2024 Medical Devices Not on file Insurance [employer] MEDICARE Care Teams Neurologist Relationship Specialty Start Date End Date Angelo Llanes DO [address] [place] [address] PCP - General Family Medicine 08/31/16
--- OUTSIDE RECORDS SUMMARY | 2024-12-30 11:57 | XMS_ITS | Encounter Summary ---
Author Organization [facility] Address [address] [facility] [place] [address] Care Team Providers Care Environmental Health Sanitarian Name Role Phone Rio Murray MD Primary Care Provider [phone] Benito Llamas MD Unavailable Eriberto Hdez DO Unavailable Candice Randle LPN Unavailable Rio Murray MD Unavailable Encounter Details Date Type Department Care Team (Late st Contact Info) Description 08/21/2024 Abstract [facility] [place] [facility] [address] [facility] 110 [place] [address] Rio Murray MD [address] [facility] 110 [place], [place] [id number] Social History Tobacco Use Types Packs/Day Years [...] week 11/01/2022 How often do you attend [facility] or advent services? More than 4 times per year 11/01/2022 Do you belong to any clubs o r organizations such as amish groups, unions, fraternal or athletic groups, or [...] Date Recorded Patient Health Questionnaire-2 Score 0 08/12/2024 [facility] of Occupat ional Health - Occupational [...] place to sleep or slept in a skilled nursing (including now)? No 11/01/2022 Comments Unknown Sex [...] AM EDT Office Visit [facility] 112 [facility] 110 [place] [address] Rio Murray MD 112 [facility] [address] [place] [address] 06/05/2025 1:50 PM EST Office Visit [facility] [facility] [address] [place] [phone] Zaina Leonardo MD [address] [place] [address] documented as of this encounter Visit Diagnoses Not on filedocumented in this encounter Care Teams Environmental Health Sanitarian Relationship Specialty Start Date End Date Rio Murray MD [address] [facility] [address] [place] [address] PCP - General Family Medicine 09/01/22 Rio Murray MD [address] [facility] [address] [place] [address] PCP - Medical [facility] 04/24/2404/23 Benito Llamas MD [address] [place] [address] Referring Physician Dermatology 07/03/24 Eriberto Hdez DO [address] [place] [address] Otolaryngology 07/03/24 Candice Randle LPN [address] [facility] [address] [place] [address] 07/10/24 documented as of this encounter
--- OUTSIDE RECORDS SUMMARY | 2024-12-30 11:57 | XMS_ITS | Encounter Summary ---
Author Organization [facility] Address [address] [place] [address] Phone Care Team Providers Care Senior Sql Dba Name Role Phone Rio Murray MD Primary Care Provider [phone] Encounter Details Date Type Department Care Team (Late st Contact Info) Description 11/11/2024 Scanned Document [facility] [address] [place] [phone] Scanning, Generic Provider Social History Tobacco Use Types Packs/Day Years Used Date Smoking Tobacco: Never Assessed Comments Unknown Sex and Gender Information Value Date Recorded Sex Assigned at Not on file Legal Sex Female 12:42 PM EDT Gender Identity Not on file Sexual Orientation Not on file documented as of this encounter Plan of Treatment Upcoming Encounters Date Type Department Care Team (Late st Contact Info) Description 01/02/2025 1:15 PM EDT Office Visit [place] [id number] [facility] [address] [place] [address] Nagi Mcgill MD [address] [facility] [address] [place] [address] documented as of this encounter Visit Diagnoses Not on filedocumented in this encounter Care Teams Senior Sql Dba Relationship Specialty Start Date End Date Rio Murray MD [address] [place] [address] 110 [place] [address] PCP - General Family Medicine 11/11/24 documented as of this encounter
--- OUTSIDE RECORDS SUMMARY | 2024-12-30 11:57 | XMS_ITS | Encounter Summary ---
Author Organization [facility] Address [address] [place] [address] Care Team Providers Care Grinder Set Up Operator External Name Role Phone Rio Thayer MD Unavailable Rio Thayer MD Primary Care Provider Britni Irwin RN Unavailable [phone] Benito Llamas MD Unavailable Eriberto Hdez DO Unavailable Candice Randle LPN Unavailable Rio Thayer MD Unavailable Encounter Details Date Type Department Care Team (Late st Contact Info) Description 11/24/2023 Clinisync Result Encounter [facility] External Department Unsolicited Rio Thayer MD 112 [facility] 110 [place], [place] [id number] Social History Tobacco Use Types Packs/Day Years [...] often do you attend chur ch or rastafari services? More than 4 times per year 11/01/2022 Do you belong to any clubs o r organizations such as yarsani groups, unions, fraternal or athletic groups, or [...] Recorded Patient Health Questionnaire-2 Score 0 08/08/2023 [facility] of Occupat ional Health - [...] [place] Magana [address] [place] [address] Rio Thayer MD [address] [place] [address] 06/05/2025 1:50 PM EST Office Visit [facility] [place] [facility] [address] [place] [address] Zaina Leonardo MD [address] [place] [address] documented as of this encounter Procedures Procedure Name Priority Date/Time Associated Diagnosis Comments CA ECHO DOPPLER COMPLETE 11/24/2023 9:36 AM EDT documented in this encounter Results * CA ECHO DOPPLER COMPLETE (11/24/2023 9:36 AM EDT) Anatomical Region Laterality Modality Other 11/24/2023 9:36 AM EDT Narrative 11/24/2023 9:37 AM EDT [address] [address] Cardiology Report Signed Patient: WILLIE ESPINOSA MR#: [id number] : 1940 Acct:[id number] Age/Sex: 83 / F ADM Date: 11/23/23 Loc: CARD Attending Dr: RIO THAYER Ordering Physician: RIO THAYER Date of Service: 11/23/23 Procedure(s): CA echo doppler complete Accession Number(s): [id number] cc: RIO THAYER Patient Name: WILLIE ESPINOSA MR#: [id number] : 1940 Exam Date: 11/23/2023 Ordering Doctor: DR RIO THAYER M.D. ECHOCARDIOGRAM REPORT PROCEDURE: CA ECHO [...] free space; trivial effusion versus fat pad Adult Echocardiography Procedure Report Left Ventricle LVEDD (3.7 - 5.6 cm): 4.63 cm LVESD (2.2 - 4.0 cm): 2.57 cm LVIVS thickness (0.6 - 1.2 cm): 1.26 cm LVPW thickness (0.5 - 1.0 cm): 1.08 cm e': 0.07 m/s E - e': 14.72 LVOT Max Gradient: 3.13 mm[Hg] LVOT Area (cm2): 0.88 m/s Peak Velocity (LVOT): 0.88 m/s Mean Velocity (LVOT): 0.57 m/s LVOT Diameter 1.88 cm Left Atrium LA Volume Index (2D A2C): 43.00 ml/m2 Left Atrium Systolic Dimension: 4.40 cm Mitral Valve MV E to A Ratio: 0.73 Mitral Valve A-Wave Peak Velocity: 1.35 m/s Mitral Valve E-Wave Peak Velocity: 0.99 m/s Right Ventricle Aorta AO Root Diam: 3.55 cm Ascending Ao Diam: 2.69 cm Aortic Valve AoV Area (Peak Ha): 1.87 cm2, 1.87 cm2 AoV Area (VTI): 1.86 cm2, 1.86 cm2 Peak Velocity(Antegrade Flow): 1.31 m/s Peak Gradient(Antegrade Flow): 6.86 mm[Hg] Mean Velocity(Antegrade Flow): 0.87 m/s Mean Gradient(Antegrade Flow): 3.44 mm[Hg] Velocity Time Integral: 33.73 cm Tricuspid Valve Peak Velocity (Regurgitant Flow): 2.53 m/s Pulmonic Valve Mean Gradient: 1.64 mm[Hg] Mean Velocity: 0.58 m/s Peak Velocity: 0.90 m/s, 0.94 m/s Peak Gradient: 3.54 mm[Hg], 3.21 mm[Hg] Right Atrium Right Atrium Systolic Pressure: 47.08 ml, 47.08 ml Dictated by: Alex Galan M.D. on 11/24/2023 at 09:28 Approved by: Alex Galan M.D. on 11/24/2023 at 09:35 Dictated By: Alex Galan M.D. Signed By: 11/24/2337 DD/ 5 TD/TT: Voice Data Communications Engineer: Procedure Note Radiology, Radiologist, MD - 11/24/2023 [place] [address] Cardiology Report Signed Patient: WLILIE ESPINOSA LMR#: [id number] : 1940cct:[id number] Age/Sex: 83 / FADM Date: 11/23/23 Loc: CARD Attending Dr: RIO THAYER Ordering Physician: RIO THAYER Date of Service: 11/23/23 Procedure(s): CA echo doppler complete Accession Number(s): [id number] cc: RIO THAYER Patient Name: WILLIE ESPINOSA MR#: [id number] : 1940 Exam Date: 11/23/2023 Ordering Doctor: DR RIO THAYER M.D. ECHOCARDIOGRAM REPORT PROCEDURE: CA ECHO DOPPLER COMPLETE INDICATIONS: Murmur, hypertension, diabetes, h/o colon cancer, h/olung cancer (left lower lobe removed) COMPARISON: None. DESCRIPTION: COMPLETE ECHOCARDIOGRAM Real-time transthoracic echocardiography with 2D, M-mode, spectral and color flow Dopplerperformed. QUALITY: Technical quality was good. LEFT VENTRICLE: Normal chamber size. Mild concentric left ventricular hypertrophy. LV EF: Global left ventricular systolic function is hyperdynamic;visually estimated ejection fraction is 65 to 70%. No wall motion abnormalities. DIASTOLIC: Grade II diastolic dysfunction. ATRIAL SEPTUM: Visually appears intact. LEFT ATRIUM: Moderate dilatation. RIGHT ATRIUM: Mild dilatation. RIGHT VENTRICLE: Normal chamber size. Normal right ventricularsystolic function. TRICUSPID VALVE: Normal mobility and thickness. No stenosis with mild regurgitation. No evidence of pulmonary hypertension. RVSP 29 mmHg MITRAL VALVE: Normal mobility and thickness. No evidence of mitralvalve stenosis. Moderate mitral annular calcification. Mild mitralregurgitation. AORTIC VALVE: Normal trileaflet appearance. Mildly calcified aorticvalve. Normal leaflet mobility. No evidence of aortic [...] free space; trivial effusion versus fat pad Adult Echocardiography Procedure Report Left Ventricle LVEDD (3.7 - 5.6 cm): 4.63 cm LVESD (2.2 - 4.0 cm): 2.57 cm LVIVS thickness (0.6 - 1.2 cm): 1.26 cm LVPW thickness (0.5 - 1.0 cm): 1.08 cm e': 0.07 m/s E - e': 14.72 LVOT Max Gradient: 3.13 mm[Hg] LVOT Area (cm2): 0.88 m/s Peak Velocity (LVOT): 0.88 m/s Mean Velocity (LVOT): 0.57 m/s LVOT Diameter 1.88 cm Left Atrium LA Volume Index (2D A2C): 43.00 ml/m2 Left Atrium Systolic Dimension: 4.40 cm Mitral Valve MV E to A Ratio: 0.73 Mitral Valve A-Wave Peak Velocity: 1.35 m/s Mitral Valve E-Wave Peak Velocity: 0.99 m/s Right Ventricle Aorta AO Root Diam: 3.55 cm Ascending Ao Diam: 2.69 cm Aortic Valve AoV Area (Peak Ha): 1.87 cm2, 1.87 cm2 AoV Area (VTI): 1.86 cm2, 1.86 cm2 Peak Velocity(Antegrade Flow): 1.31 m/s Peak Gradient(Antegrade Flow): 6.86 mm[Hg] Mean Velocity(Antegrade Flow): 0.87 m/s Mean Gradient(Antegrade Flow): 3.44 mm[Hg] Velocity Time Integral: 33.73 cm Tricuspid Valve Peak Velocity (Regurgitant Flow): 2.53 m/s Pulmonic Valve Mean Gradient: 1.64 mm[Hg] Mean Velocity: 0.58 m/s Peak Velocity: 0.90 m/s, 0.94 m/s Peak Gradient: 3.54 mm[Hg], 3.21 mm[Hg] Right Atrium Right Atrium Systolic Pressure: 47.08 ml, 47.08 ml Dictated by: Alex Galan M.D. on 11/24/2023 at 09:28 Approved by: Alex Galan M.D. on 11/24/2023 at 09:35 Dictated By: Alex Galan M.D. Signed By:11/24/23 0937 DD/ 0936 TD/TT: Voice Data Communications Engineer: Rio Thayer MD [facility] Final Result documented in this encounter Visit Diagnoses Not on filedocumented in this encounter Care Teams Grinder Set Up Operator External Relationship Specialty Start Date End Date Rio Thayer MD [address] [address] PCP - Devoted 04/24/20 04/23/24 Rio Thayer MD [address] [facility] 110 [place] [address] PCP - General Family Medicine 09/01/22 Rio Thayer MD [address] [place] [address] [place] [address] PCP - Medical [facility] 04/24/2404/23 Britni Irwin, RN [address] [place] [address] Clinical Advocate Family Medicine 05/31/24 07/10/24 Benito Llamas MD [address] [facility] 350 [place] [address] Referring Physician Dermatology 07/03/24 Eriberto Hdez DO [address] [place] [address] Otolaryngology 07/03/24 Candice Randle LPN [address] [facility] 110 [place] [address] 07/10/24 documented as of this encounter
--- OUTSIDE RECORDS SUMMARY | 2024-12-30 11:57 | XMS_ITS | Encounter Summary ---
Author Organization [facility] Address [address] [facility] [place] [address] Care Team Providers Care Warehouse Hand Name Role Phone Roi Murray MD Primary Care Provider Benito Llamas MD Unavailable [phone] Eriberto Hdez DO Unavailable Candice Randle LPN Unavailable Rio Murray MD Unavailable Encounter Details Date Type Department Care Team (Late st Contact Info) Description 08/26/2024 Abstract [facility] [place] [facility] [address] [facility] 110 [place] [address] Rio Murray MD [address] [facility] 110 [place], [place] [phone] Social History Tobacco Use Types Packs/Day Years [...] week 11/01/2022 How often do you attend [facility] or moravian services? More than 4 times per year 11/01/2022 Do you belong to any clubs o r organizations such as confucianism groups, unions, fraternal or athletic groups, or [...] Recorded Patient Health Questionnaire-2 Score 0 08/12/2024 [facility] of Occupat ional Health - Occupational [...] AM EDT Office Visit [facility] 112 [facility] 110 [place] [address] Rio Murray MD 112 [facility] 110 [place] [address] 06/05/2025 1:50 PM EST Office Visit [facility] [address] [place] [address] Zaina Leonardo MD [address] [place] [address] documented as of this encounter Visit Diagnoses Not on filedocumented in this encounter Care Teams Warehouse Hand Relationship Specialty Start Date End Date Rio Murray MD [address] [facility] 110 [place] [address] PCP - General Family Medicine 09/01/22 Rio Murray MD [address] [facility] 110 [place] [address] PCP - Medical [facility] 04/24/2404/23 Benito Llamas MD [address] [place] [address] Referring Physician Dermatology 07/03/24 Eriberto Hdez DO [address] [place] [address] Otolaryngology 07/03/24 Candice Randle LPN [address] [facility] 110 [place] [address] 07/10/24 documented as of this encounter
--- OUTSIDE RECORDS SUMMARY | 2024-12-30 11:57 | XMS_ITS | Encounter Summary ---
Author Organization [facility] Address [address] [place] [address] Care Team Providers Care Dietitian Name Role Phone Rio Thayer MD Unavailable Rio Thayer MD Primary Care Provider [phone] Britni Irwin RN Unavailable [phone] Benito Llamas MD Unavailable Eriberto Hdez DO Unavailable Candice Randle LPN Unavailable Rio Thayer MD Unavailable Encounter Details Date Type Department Care Team (Late st Contact Info) Description 07/20/2023 Clinisync Result Encounter [facility] External Department Unsolicited Rio Thayer MD 112 [facility] 110 [place], [place] [address] Social History Tobacco Use Types Packs/Day Years [...] often do you attend chur ch or holiness services? More than 4 times per year [...] and heating? Not hard at all 11/01/2022 [facility] of Occupat ional Health - Occupational Stress [...] place to sleep or slept in a assisted (including now)? No 11/01/2022 Comments Unknown Sex [...] [facility] [place] [facility] [address] [facility] 110 [place] [address] Rio Thayer MD [address] [facility] 110 [place] [address] 06/05/2025 1:50 PM EST Office Visit [facility] [address] [place] [place] [address] Zaina Leonardo MD [address] [place] [address] documented as of this encounter Procedures Procedure Name Priority Date/Time Associated Diagnosis Comments XR DEXA AXIAL SKELETON 07/20/2023 11:42 AM EDT documented in this encounter Results * XR DEXA AXIAL SKELETON (07/20/2023 11:42 AM EDT) Anatomical Region Laterality Modality Other 07/20/2023 11:4 2 AM EDT Narrative 07/20/2023 11:45 AM EDT [address] [address] XRay Report Signed Patient: WILLIE ESPINOSA MR#: [id number] : 1940 Acct:[id number] Age/Sex: 83 / F ADM Date: 07/20/23 Loc: RAD Attending Dr: RIO THAYER Ordering Physician: RIO THAYER Date of Service: 07/20/23 Procedure(s): XR DEXA axial skeleton Accession Number(s): [id number] cc: RIO THAYER [address] [address] Patient Name: WILLIE ESPINOSA MRN: [id number] date: 1940 Sex: F Assigned Patient Location: [facility] Current Patient Location: [facility] Accession/Order Number: [id number] Exam Date: 07/20/2023 11:05 Report Date: 07/20/2023 11:42 At the request of: RIO THAYER Procedure: XR DEXA axial skeleton EXAMINATION: XR DEXA axial skeleton, 07/20/2023 11:05 AM EDT HISTORY: Estrogen Deficiency E28.39 COMPARISON: None. TECHNIQUE: Dual-energy X-ray absorptiometry (DEXA) bone density study performed for the axial skeleton. HISTORY: Estrogen Deficiency E28.39 FINDINGS: Bone mineral density AP spine L1-L4 measures 1.437 g/sq cm. T score 2.1. WHO classification: Normal. Lowest bone density is in the left femoral neck measuring 0.851 g/sq cm. T score -1.3. WHO classification: Osteopenia XR/XR DEXA axial skeleton IMPRESSION: Osteopenia. Moderate fracture risk Electronically authenticated by: ALISA DONG Date: 07/20/2023 11:42 Dictated By: Alisa Dong M.D. Signed By: 07/20/23 1145 DD/ 1142 TD/TT: Solo Truck Driver: Procedure Note Radiology, Radiologist, MD - 07/20/2023 [place] [address] XRay Report Signed Patient: WILLIE ESPINOSA R#: [id number] : 1940cct:[id number] Age/Sex: 83 / FADM Date: 07/20/23 Loc: RAD Attending Dr: RIO THAYER Ordering Physician: RIO THAYER Date of Service: 07/20/23 Procedure(s): XR DEXA axial skeleton Accession Number(s): [id number] cc: RIO THAYER [place] [id number] Patient Name: WILLIE ESPINOSA MRN: [id number] date: 1940 Sex: F Assigned Patient Location: [facility] Current Patient Location: [facility] Accession/Order Number: [id number] Exam Date: 07/20/2023 11:05 Report Date: 07/20/2023 11:42 At the request of: RIO THAYER Procedure: XR DEXA axial skeleton EXAMINATION: XR DEXA axial skeleton, 07/20/2023 11:05 AM EDT HISTORY: Estrogen Deficiency E28.39 COMPARISON: None. TECHNIQUE: Dual-energy X-ray absorptiometry (DEXA) bone density study performed for the axial skeleton. HISTORY: Estrogen Deficiency E28.39 FINDINGS: Bone mineral density AP spine L1-L4 measures 1.437 g/sq cm. T score 2.1.WHO classification: Normal. Lowest bone density is in the left femoral neck measuring 0.851 g/sq cm. T score -1.3. WHO classification: Osteopenia XR/XR DEXA axial skeleton IMPRESSION: Osteopenia. Moderate fracture risk Electronically authenticated by: ALISA DONG Date: 07/20/2023 11:42 Dictated By: Alisa Dong M.D. Signed By:07/20/23 1145 DD/ 1142 TD/TT: Solo Truck Driver: Rio Thayer MD [facility] Final Result documented in this encounter Visit Diagnoses Not on filedocumented in this encounter Care Teams Dietitian Relationship Specialty Start Date End Date Rio Thayer MD [address] [facility] 110 [place] [address] PCP - Devoted 04/24/20 04/23/24 Rio Thayer MD [address] [facility] 110 [place] [address] PCP - General Family Medicine 09/01/22 Rio Thayer MD [address] [facility] 110 [place] [address] PCP - Medical [place] 04/24/2404/23 Britni Irwin, LION [address] [place] [address] Clinical Advocate Family Medicine 05/31/24 07/10/24 Benito Llamas MD [address] [facility] 350 [place] [address] Referring Physician Dermatology 07/03/24 Eriberto Hdez DO [address] [place] [address] Otolaryngology 07/03/24 Candice Randle LPN [address] [facility] 110 [place] [address] 07/10/24 documented as of this encounter
--- OUTSIDE RECORDS SUMMARY | 2024-12-30 11:57 | XMS_ITS | Encounter Summary ---
Author Organization [facility] Address [address] [place] [address] Care Team Providers Care Claims Technician Name Role Phone Rio Murray MD Unavailable Rio Murray MD Primary Care Provider Britni Irwin RN Unavailable [phone] Benito Llamas MD Unavailable [phone] Eriberto Hdez DO Unavailable Candice Randle LPN Unavailable Rio Murray MD Unavailable Encounter Details Date Type Department Care Team (Late st Contact Info) Description 02/06/2024 Abstract [facility] [place] [facility] [address] [facility] 110 [place] [address] Rio Murray MD 112 [facility] 110 [place], [place] [address] Social History Tobacco Use Types Packs/Day Years [...] How often do you attend chur or faith services? More than 4 times per year 11/01/2022 Do you belong to any clubs o r organizations such as jewish groups, unions, fraternal or athletic groups, or [...] Recorded Patient Health Questionnaire-2 Score 0 08/08/2023 [facility] of Occupat ional [facility] - Occupational Stress Questionnaire Answer Date Recorded [...] 10:30 AM EDT Office Visit [facility] [place] [facility] [address] [facility] 110 [place] [address] Rio Murray MD [address] [facility] 110 [place] [address] 06/05/2025 1:50 PM EST Office Visit [facility] [address] [place] [address] Zaina Leonardo MD [address] [place] [address] documented as of this encounter Visit Diagnoses Not on filedocumented in this encounter Care Teams Claims Technician Relationship Specialty Start Date End Date Rio Murray MD [address] [facility] 110 [place] [address] PCP - Devoted 04/24/20 04/23/24 Rio Murray MD [address] [facility] 110 [place] [address] PCP - General Family Medicine 09/01/22 Rio Murray MD [address] [facility] 110 [place] [address] PCP - Medical [facility] 04/24/2404/23 Britni Irwin, RN [address] [place] [address] Clinical Advocate Family Medicine 05/31/24 07/10/24 Benito Llamas MD [address] [place] [address] Referring Physician Dermatology 07/03/24 Eriberto Hdez DO [address] [place] [address] Otolaryngology 07/03/24 Candice Randle LPN 112 [facility] 110 [place] [address] 07/10/24 documented as of this encounter
--- OUTSIDE RECORDS SUMMARY | 2024-12-30 11:57 | XMS_ITS | Encounter Summary ---
Author Organization [facility] Address [address] [facility] [place] [address] Care Team Providers Care Dye Reel Operator Helper Name Role Phone Rio Murray MD Unavailable Rio Murray MD Primary Care Provider Britni Irwin RN Unavailable [phone] Benito Llamas MD Unavailable [phone] Eriberto Hdez DO Unavailable Candice Randle LPN Unavailable Rio Murray MD Unavailable Encounter Details Date Type Department Care Team (Late st Contact Info) Description 07/20/2023 Abstract [facility] [place] [facility] [address] [facility] 110 [place] [address] Rio Murray MD [address] [facility] 110 [place], [place] [id number] Social History Tobacco Use Types Packs/Day Years [...] week 11/01/2022 How often do you attend [facility] or sikhism services? More than 4 times per year [...] and heating? Not hard at all 11/01/2022 [facility] of Occupat ional Health - Occupational Stress [...] [place] [address] [place] [address] Rio Murray MD [address] [place] [address] 06/05/2025 1:50 PM EST Office Visit [facility] [place] [facility] [address] [place] [address] Zaina Leonardo MD [address] [facility] 350 [place] [address] documented as of this encounter Visit Diagnoses Not on filedocumented in this encounter Care Teams Dye Reel Operator Helper Relationship Specialty Start Date End Date Rio Murray MD [address] [facility] 110 [place] [address] PCP - Devoted 04/24/20 04/23/24 Rio Murray MD [address] [facility] 110 [place] [address] PCP - General Family Medicine 09/01/22 Rio Murray MD [address] [facility] 110 [place] [address] PCP - Medical [facility] 04/24/2404/23 Britni Irwin, RN [address] [place] [address] Clinical Advocate Family Medicine 05/31/24 07/10/24 Benito Llamas MD [address] [facility] 350 [place] [address] Referring Physician Dermatology 07/03/24 Eriberto Hdez DO [address] [place] [address] Otolaryngology 07/03/24 Candice Randle LPN [address] [facility] 110 [place] [address] 07/10/24 documented as of this encounter
--- OUTSIDE RECORDS SUMMARY | 2024-12-30 11:57 | XMS_ITS | Encounter Summary ---
Author Organization [facility] Address [address] [facility] [place] [address] Care Team Providers Care Business Continuity Coordinator Name Role Phone Rio Murray MD Primary Care Provider Benito Llamas MD Unavailable Eriberto Hdez DO Unavailable [phone] Candice Randle LPN Unavailable Rio Murray MD Unavailable Encounter Details Date Type Department Care Team (Late st Contact Info) Description 12/19/2024 Abstract [facility] [place] [facility] [address] [facility] 110 [place] [address] Rio Murray MD [address] [facility] 110 [place], [place] [address] Social History Tobacco Use Types Packs/Day Years [...] week 11/01/2022 How often do you attend [facility] or latter day services? More than 4 times per year 11/01/2022 Do you belong to any clubs o r organizations such as muslim groups, unions, fraternal or athletic groups, or [...] Recorded Patient Health Questionnaire-2 Score 0 11/11/2024 [facility] of Occupat ional Health - Occupational [...] place to sleep or slept in a residential (including now)? No 11/01/2022 Comments Unknown Sex [...] AM EDT Office Visit [facility] 112 [facility] 110 [place] [address] Rio Murray MD 112 [facility] 110 [place] [address] 06/05/2025 1:50 PM EST Office Visit [facility] [address] [place] [address] Zaina Leonardo MD [address] [place] [address] documented as of this encounter Visit Diagnoses Not on filedocumented in this encounter Care Teams Business Continuity Coordinator Relationship Specialty Start Date End Date Rio Murray MD [address] [facility] 110 [place] [address] PCP - General Family Medicine 09/01/22 Rio Murray MD [address] [facility] 110 [place] [address] PCP - Medical [facility] 04/24/2404/23 Benito Llamas MD [address] [place] [address] Referring Physician Dermatology 07/03/24 Eriberto Hdez DO [address] [place] [address] Otolaryngology 07/03/24 Candice Randle LPN [address] [facility] 110 [place] [address] 07/10/24 documented as of this encounter
--- OUTSIDE RECORDS SUMMARY | 2024-12-30 11:57 | XMS_ITS ---
Author Organization [facility] Address [address] [place] [address] Care Team Providers Care Generator Man Name Role Phone Rio Murray MD Primary Care Provider Benito Llamas MD Unavailable [phone] Eriberto Hdez Grace DO Unavailable Candice Randle LPN Unavailable Rio Murray MD Unavailable Chronic Care Management (CCM) Status:Enrolled (Active) Start date:09/08/2022 Enrollment date:09/08/2022 Overview 02/09/23, 2:03 PM - Jaylamonday, MARIO- Patient gives verbal consent to be enrolled in CCM Program and understands there could be a bill for this service. Case Team Name Relationship Phone Candice Randle LPN(Responsible Staff) [phone] Continued Care and Services Coordination
--- OUTSIDE RECORDS SUMMARY | 2024-12-30 11:57 | XMS_ITS | Encounter Summary ---
Author Organization [facility] Address [address] [place] [address] Care Team Providers Care Motor Vehicle Light Assembler Name Role Phone Rio Murray MD Unavailable Rio Murray MD Primary Care Provider Britni Irwin RN Unavailable Benito Llamas MD Unavailable [phone] Eriberto Hdez DO Unavailable Candice Randle LPN Unavailable Rio Murray MD Unavailable Encounter Details Date Type Department Care Team (Late st Contact Info) Description 05/22/2023 [facility] Only [facility] [address] [place] [address] A, Unknown Practice [address] [place] [address] Social History Tobacco Use Types [...] How often do you attend chur or oriental orthodox services? More than 4 times per year [...] [facility] [place] of Occupat ional Health - Occupational Stress [...] 10:30 AM EDT Office Visit [facility] [place] [facility] [address] [place] [address] Rio Murray MD [address] [place] [address] 06/05/2025 1:50 PM EST Office Visit [facility] [address] [place] [address] Zaina Leonardo MD [address] [place] [address] documented as of this encounter Procedures Procedure Name Priority Date/Time Associated Diagnosis Comments STRESS TEST, NUCLEAR CARDIAC Routine 05/22/2023 2:51 PM EST documented in this encounter Results * STRESS TEST, NUCLEAR CARDIAC (05/22/2023 2:51 PM EST) Anatomical Region Laterality Modality Radiographic Lucila ging us Unknown Practice A IMG XR PROCEDURES Final Resul t documented in this encounter Visit Diagnoses Not on filedocumented in this encounter Care Teams Motor Vehicle Light Assembler Relationship Specialty Start Date End Date Rio Murray MD [address] [facility] [address] [place] [address] PCP - Devoted 04/24/20 04/23/24 Rio Murray MD [address] [facility] 110 [place] [address] PCP - General Family Medicine 09/01/22 Rio Murray MD [address] [facility] 110 [place] [address] PCP - Medical [facility] 04/24/2404/23 Britni Irwin, LINO [address] [place], [place] [phone] Clinical [facility] Family [facility] 05/31/24 07/10/24 Benito Llamas MD [address] [place] [address] Referring Physician Dermatology 07/03/24 Eriberto Hdez DO [address] [place] [address] Otolaryngology 07/03/24 Candice Randle, MARIO [address] [facility] 110 [place] [address] 07/10/24 documented as of this encounter
--- OUTSIDE RECORDS SUMMARY | 2024-12-30 11:57 | XMS_ITS | Encounter Summary ---
Author Organization [facility] Address [address] [facility] [place] [address] Care Team Providers Care Release And Technical Records Clerk Name Role Phone Rio Murray MD Unavailable Rio Murray MD Primary Care Provider [phone] Britni Irwin RN Unavailable Benito Llamas MD Unavailable Eriberto Hdez DO Unavailable Candice Randle LPN Unavailable Rio Murray MD Unavailable Encounter Details Date Type Department Care Team (Late st Contact Info) Description 09/14/2023 Abstract [facility] [place] [facility] [address] [facility] 110 [place] [address] Rio Murray MD 112 [facility] 110 [place], [place] [phone] Social History Tobacco Use Types Packs/Day Years [...] often do you attend [facility] or mormonism services? More than 4 times per year 11/01/2022 Do you belong to any clubs o r organizations such as mandaen groups, unions, fraternal or athletic groups, or [...] Recorded Patient Health Questionnaire-2 Score 0 08/08/2023 [facility] of Occupat ional Health - Occupational [...] Visit [facility] [place] [facility] [address] [facility] [address] [place] [address] Rio Murray MD [address] [facility] 110 [place] [address] 06/05/2025 1:50 PM EST Office Visit [facility] [place] [facility] [address] [place] [address] Zaina Leonardo MD [address] [place] [address] documented as of this encounter Visit Diagnoses Not on filedocumented in this encounter Care Teams Release And Technical Records Clerk Relationship Specialty Start Date End Date Rio Murray MD [address] [place] [address] PCP - Devoted 04/24/20 04/23/24 Rio Murray MD [address] [facility] 110 [place] [address] PCP - General Family Medicine 09/01/22 Rio Murray MD [address] [facility] [address] [place] [address] PCP - Medical [place] 04/24/2404/23 Britni Irwin, RN [address] [place], [place] [phone] Clinical Advocate Family Medicine 05/31/24 07/10/24 Benito Llamas MD [address] [place] [address] Referring Physician Dermatology 07/03/24 Eriberto Hdez DO [address] [place] [address] Otolaryngology 07/03/24 Candice Randle LPN [address] [facility] 110 [place] [address] 07/10/24 documented as of this encounter
--- OUTSIDE RECORDS SUMMARY | 2024-12-30 11:57 | XMS_ITS | Encounter Summary ---
Author Organization [facility] Address [address] [facility] [place] [address] Care Team Providers Care Sap Bw Consultant Name Role Phone Rio Murray MD Unavailable Rio Murray MD Primary Care Provider [phone] Britni Irwin RN Unavailable Benito Llamas MD Unavailable Eriberto Hdez DO Unavailable Candice Randle LPN Unavailable Rio Murray MD Unavailable Encounter Details Date Type Department Care Team (Late st Contact Info) Description 02/22/2023 Abstract [facility] [place] [facility] [place] [address] [facility] 110 [place] [address] Rio Murray MD 112 [facility] 110 [place], [place] [phone] Social History Tobacco Use Types Packs/Day Years [...] often do you attend [facility] or buddhism services? More than 4 times per year 11/01/2022 Do you belong to any clubs o r organizations such as mormonism groups, unions, fraternal or athletic groups, or [...] and heating? Not hard at all 11/01/2022 [facility] of Occupat ional Health - Occupational Stress [...] [place] [facility] [address] [place] [address] Rio Murray MD [address] [place] [address] 06/05/2025 1:50 PM EST Office Visit [facility] [place] [facility] [address] [place] [address] Zaina Leonardo MD [address] [facility] 350 [place] [phone] documented as of this encounter Visit Diagnoses Not on filedocumented in this encounter Care Teams Sap Bw Consultant Relationship Specialty Start Date End Date Rio Murray MD [address] [facility] 110 [place] [address] PCP - Devoted 04/24/20 04/23/24 Rio Murray MD [address] [facility] 110 [place] [address] PCP - General Family Medicine 09/01/22 Rio Murray MD [address] [facility] 110 [place] [address] PCP - Medical [facility] 04/24/2404/23 Britni Irwin, RN [address] [place] [address] Clinical Advocate Family Medicine 05/31/24 07/10/24 Benito Llamas MD [address] [facility] 350 [place] [address] Referring Physician Dermatology 07/03/24 Eriberto Hdez DO [address] [place] [address] Otolaryngology 07/03/24 Candice Randle LPN [address] [facility] 110 [place] [address] 07/10/24 documented as of this encounter
--- OUTSIDE RECORDS SUMMARY | 2024-12-30 11:57 | XMS_ITS | Encounter Summary ---
Author Organization [facility] Address [address] [facility] [place] [address] Care Team Providers Care Horse Show Manager Name Role Phone Rio Murray MD Unavailable Rio Murray MD Primary Care Provider [phone] Britni Irwin RN Unavailable Benito Llamas MD Unavailable [phone] Eriberto Hdez DO Unavailable [phone] Candice Randle LPN Unavailable Rio Murray MD Unavailable Encounter Details Date Type Department Care Team (Late st Contact Info) Description 02/22/2023 Abstract [facility] [place] [facility] [address] [facility] 110 [place] [address] Rio Murray MD 112 [facility] 110 [place], [place] [phone] Social History Tobacco Use Types Packs/Day Years [...] week 11/01/2022 How often do you attend [facility] or yazidism services? More than 4 times per year 11/01/2022 Do you belong to any clubs o r organizations such as jew groups, unions, fraternal or athletic groups, or [...] and heating? Not hard at all 11/01/2022 [facility] [place] of Occupat ional Health - Occupational Stress [...] place to sleep or slept in a penitentiary (including now)? No 11/01/2022 Comments Unknown Sex [...] [place] [facility] [address] [place] [address] Rio Murray MD [address] [place] [address] 06/05/2025 1:50 PM EST Office Visit [facility] [place] [facility] [address] [place] [address] Zaina Leonardo MD [address] [facility] 350 [place] [phone] documented as of this encounter Visit Diagnoses Not on filedocumented in this encounter Care Teams Horse Show Manager Relationship Specialty Start Date End Date Rio Murray MD [address] [facility] 110 [place] [address] PCP - Devoted 04/24/20 04/23/24 Rio Murray MD [address] [facility] 110 [place] [address] PCP - General Family Medicine 09/01/22 Rio Murray MD [address] [facility] 110 [place] [address] PCP - Medical [facility] 04/24/2404/23 Britni Irwin, RN [address] [place] [address] Clinical Advocate Family Medicine 05/31/24 07/10/24 Benito Llamas MD [address] [facility] 350 [place] [address] Referring Physician Dermatology 07/03/24 Eriberto Hdez DO [address] [place] [address] Otolaryngology 07/03/24 Candice Randle LPN [address] [facility] 110 [place] [address] 07/10/24 documented as of this encounter
--- OUTSIDE RECORDS SUMMARY | 2024-12-30 11:57 | XMS_ITS | Encounter Summary ---
Author Organization [facility] Address [address] [place] [address] Care Team Providers Care Overhead Cleaner Maintainer Name Role Phone Rio Murray MD Primary Care Provider [phone] Benito Llamas MD Unavailable Eriberto Hdez DO Unavailable [phone] Candice Randle LPN Unavailable Rio Murray MD Unavailable Encounter Details Date Type Department Care Team (Late st Contact Info) Description 12/16/2024 Patient Outreach [facility] [address] [place] [address] Candice Randle LPN [address] [place] [address] Social History Tobacco Use Types Packs/Day Years [...] week 11/01/2022 How often do you attend [facility] or religion services? More than 4 times per year 11/01/2022 Do you belong to any clubs o r organizations such as mu-ism groups, unions, fraternal or athletic groups, or [...] Recorded Patient Health Questionnaire-2 Score 0 11/11/2024 [facility] of Occupat ional Health - Occupational Stress [...] place to sleep or slept in a m[facility] (including now)? No 11/01/2022 Comments Unknown Sex and Gender Information Value Date Recorded Sex Assigned at Not on file Legal Sex Female 6:59 PM EDT Gender Identity Not on file Sexual Orientation Not on file documented as of this encounter Progress Notes * Candice Randle LPN - 12/16/2024 2:04 PM EDT Spoke to pt for outreach. Pt states she is doing ok. We review/update care plan. Pt agreeable with care plan. Pt lets health technical writer know she got a letter stating her [employer] application was approved. Ilet her know that when medication gets delivered I will call and she can come grain picker at office. She is glad she was approved, states it will help her a lot financially. She talks about some form shehas for her sensors and how to get them for free. I tell her I am unfamiliar with this. Pt states she will drop off at office sometime for me to look at. No further needs or concerns. Encouraged to call if any arise. * Candice Randle LPN - 12/16/2024 2:04 PM EDT Images from the original note were not included. 12/16/2024 Willie Gonzalez [address] [place] [phone] Problem: HbA1C is uncontrolled Goal: Establish Regular Follow-Ups with PCP Intervention: Determine patient's next PCP visit , Problem: HbA1C is uncontrolled Goal: Reduce HbA1C levels below 9% Intervention: Educate patient on diet and exercise , and Problem: Med Adherence Goal: Consistently take medications as prescribed Intervention: Discuss barriers to patient's medication routine Intervention: Educate patient on frequency and refill details of meds * Candice Randle LPN - 12/16/2024 2:04 PM EDT Care plan printed to be mailed to pt. documented in this encounter Plan of Treatment Upcoming Encounters Date Type Department Care Team (Late st Contact Info) Description 02/10/2025 10:30 AM EDT Office Visit [facility] [place] [facility] [address] [place] [address] [place] [address] Rio Murray MD [address] [place] [address] 06/05/2025 1:50 PM EST Office Visit [facility] [place] [facility] [address] [place] [address] Zaina Leonardo MD [address] [facility] 350 [place] [address] documented as of this encounter Visit Diagnoses Diagnosis Type 2 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, with long-term current use of insulin, unspecified laterality, unspecified retinopathy severity (HCC)- Primary Essential hypertension Unspecified essential hypertension documented in this encounter Care Teams Overhead Cleaner Maintainer Relationship Specialty Start Date End Date Rio Murray MD [address] [facility] 110 [place] [address] PCP - General Family Medicine 09/01/22 Rio Murray MD [address] [facility] [address] [place] [address] PCP - Medical [facility] 04/24/2404/23 Benito Llamas MD [address] [facility] [address] [facility] 350 [place] [address] Referring Physician Dermatology 07/03/24 Eriberto Hdez DO [address] [place] [address] Otolaryngology 07/03/24 Candice Randle LPN [address] [facility] 110 [place] [address] 07/10/24 documented as of this encounter
--- OUTSIDE RECORDS SUMMARY | 2024-12-30 11:57 | XMS_ITS | Encounter Summary ---
Author Organization [facility] Address [address] [facility] [place] [address] Care Team Providers Care Liquefaction Supervisor Name Role Phone Rio Murray MD Unavailable Rio Murray MD Primary Care Provider Britni Irwin RN Unavailable [phone] Benito Llamas MD Unavailable Eriberto Hdez DO Unavailable Candice Randle LPN Unavailable Rio Murray MD Unavailable Encounter Details Date Type Department Care Team (Late st Contact Info) Description 02/21/2023 Abstract [facility] [place] [facility] [address] [facility] 110 [place] [address] Rio Murray MD [address] [facility] 110 [place], [place] [phone] Social History Tobacco Use Types Packs/Day Years [...] week 11/01/2022 How often do you attend [facility] or sabianist services? More than 4 times per year 11/01/2022 Do you belong to any clubs o r organizations such as denominational groups, unions, fraternal or athletic groups, or [...] and heating? Not hard at all 11/01/2022 [facility] [place] of Occupat ional Health - Occupational Stress [...] place to sleep or slept in a mcc (including now)? No 11/01/2022 Comments Unknown Sex [...] [place] [facility] [address] [place] [address] Rio Murray MD [address] [place] [address] 06/05/2025 1:50 PM EST Office Visit [facility] [place] [facility] [address] [place] [address] Zaina Leonardo MD [address] [facility] 350 [place] [phone] documented as of this encounter Visit Diagnoses Not on filedocumented in this encounter Care Teams Liquefaction Supervisor Relationship Specialty Start Date End Date Rio Murray MD [address] [facility] [address] [place] [address] PCP - Devoted 04/24/20 04/23/24 Rio Murray MD [address] [facility] 110 [place] [address] PCP - General Family Medicine 09/01/22 Roi Murray MD [address] [facility] 110 [place] [address] PCP - Medical [facility] 04/24/2404/23 Britni Irwin, RN [address] [place] [address] Clinical Advocate Family Medicine 05/31/24 07/10/24 Benito Llamas MD [address] [facility] 350 [place] [address] Referring Physician Dermatology 07/03/24 Eriberto Hdez DO [address] [place] [address] Otolaryngology 07/03/24 Candice Randle LPN [address] [facility] 110 [place] [address] 07/10/24 documented as of this encounter
--- OUTSIDE RECORDS SUMMARY | 2024-12-30 11:57 | XMS_ITS | Encounter Summary ---
Author Organization [facility] Address [address] [place] [address] Phone Care Team Providers Care Dietician Name Role Phone Rio Murray MD Primary Care Provider [phone] Encounter Details Date Type Department Care Team (Late st Contact Info) Description 06/24/2024 Scanned Document [facility] [address] [place] [phone] Scanning, Generic Provider Social History Tobacco Use [...] Description 01/02/2025 1:15 PM EDT Office Visit [place] [phone] [facility] [address] [place] [address] Nagi Mcgill MD [address] [facility] [address] [place] [address] documented as of this encounter Visit Diagnoses Not on filedocumented in this encounter Care Teams Dietician Relationship Specialty Start Date End Date Rio Murray MD [address] [place] [address] [address] [place] [address] PCP - General Family Medicine 11/11/24 documented as of this encounter
--- OUTSIDE RECORDS SUMMARY | 2024-12-30 11:57 | XMS_ITS | Clinical Summary ---
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 Name Role Phone Rio Thayer MD Primary Care Provider Benito Llamas MD Unavailable [phone] Eriberto Hdez DO Unavailable Candice Randle LPN Unavailable Rio Thayer MD Unavailable Allergies Active Allergy Reactions Criticality Noted Date Comments Aspirin 10/18/2022 Other Reaction(s): makes her stomach burn Gabapentin Hallucinations 08/01/2016 Medications OneTouch Verio test stripIndications:D iabetic nephropathy associated with type 2 diabetes mellitus (HCC) use to test BLOOD SUGAR THREE TIMES DAILY 100 each 11 12/17/19 23 Active acetaminophen (Tylenol) 500 MG tablet Take 500 mg by mouth every 6 (six) hours if needed. Active albuterol (2.5 MG/3ML) 0.083% nebulizer solutionIndication s:Asthma, unspecified asthma severity, unspecified whether complicated, unspecified whether persistent (HCC) Take 3 mL (2.5 mg) by nebulization every 6 (six) hours if needed for wheezing 75 mL 11 03/27/20 23 Active Elastic Bandages & Supports (Post-OP Shoe/Soft Top Women) miscIndications:Cl osed fracture of left foot, initial encounter Apply the shoe daily, use until foot is healed 1 each 06/15/19 24 Active traMADol (Ultram) 50 MG tabletIndications: Degeneration of lumbar intervertebral disc Take 1 tablet (50 mg) by mouth every 4 (four) hours if needed for severe pain 180 tablet 09/14/19 24 Active baclofen (Lioresal) 10 MG tabletIndications: Restless legs TAKE 1 TABLET BY MOUTH WITH FOOD or milk THREE TIMES DAILY 270 tablet 1 11/07/19 24 Active furosemide (Lasix) 20 MG tabletIndications: Edema, unspecified type TAKE 1 TABLET BY MOUTH IN THE MORNING 100 tablet 3 12/29/19 24 Active fluocinonide (Lidex) 0.05 % external solutionIndication s:Psoriasis vulgaris Apply to affected areas on the scalp, up to twice a day when flared, 30 day supply 60 mL 02/29/20 24 Active Fluocinolone Acetonide Scalp (fluocinolone) 0.01 % oilIndications:Pso riasis vulgaris Apply to scalp, up to twice a day for flares, 30 day supply 118.28 mL 02/29/20 24 Active ergocalciferol (Vitamin D2) 1.25 MG (63944 UT) capsuleIndications :Vitamin D deficiency Take 1 capsule (1.25 mg) by mouth 1 (one) time per week 12 capsule 3 05/18/19 25 Active Continuous Glucose Camp Dishwasher (FreeStyle Ivy 2 [place]) deviceIndications: Uncontrolled type 2 diabetes mellitus with hypoglycemia, unspecified hypoglycemia coma status (HCC) Inject 1 Device under the skin Daily 1 each 08/21/19 25 Active Continuous Glucose Sensor (FreeStyle Ivy 2 Sensor) miscIndications:Un controlled type 2 diabetes mellitus with hypoglycemia, unspecified hypoglycemia coma status (HCC) Inject 1 Device under the skin every 14 (fourteen) days 6 each 3 08/21/19 25 Active insulin pen needle (BD Pen Needle Shakira U/F) 32G x 4 mm miscIndications:Ty pe 2 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, with long-term current use of insulin, unspecified laterality, unspecified retinopathy severity (HCC) Inject 1 each under the skin in the morning and 1 each in the evening and 1 each before bedtime. USE DIRECTED DAILY. 300 each 3 09/06/19 25 026 Active levothyroxine (Synthroid, Levoxyl) 50 MCG tabletIndications: Hypothyroidism, unspecified type TAKE 1 TABLET BY MOUTH IN THE MORNING ON AN EMPTY STOMACH 100 tablet 3 09/24/19 25 Active losartan (Cozaar) 25 MG tabletIndications: Essential hypertension TAKE 1 TABLET BY MOUTH DAILY 90 tablet 3 10/19/19 25 Active insulin glargine (Toujeo SoloStar) 300 UNIT/ML injectionIndicatio ns:Uncontrolled type 2 diabetes mellitus with hypoglycemia without coma (HCC) Inject 33 Units under the skin at bedtime 9.9 mL 3 10/25/19 25 026 Active albuterol HFA 90 mcg/act inhalerIndications :Asthma, unspecified asthma severity, unspecified whether complicated, unspecified whether persistent (HCC) Inhale 2 puffs every 6 (six) hours if needed for shortness of breath 18 g 3 11/12/19 25 Active insulin lispro-aabc (Maycol Hackett) 100 UNIT/ML penIndications:Unc ontrolled type 2 diabetes mellitus with hypoglycemia, unspecified hypoglycemia coma status (HCC) Inject 8 Units under the skin in the morning and 8 Units at noon and 8 Units in the evening. Inject with meals. 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 08/12/2024 Assessment & Plan (08/12/2024 11:02 AM EDT): S/P Moh's Procedure Body mass index (BMI) 35.0-35.9, adult Assessment & Plan (05/16/2024 2:16 PM EST): Diet and Exercise Encouraged Cellulitis of left upper extremity 04/09/2024 Assessment & Plan (04/09/2024 4:09 PM EST): Add Probiotic to help replenish the good bacteria that are destroyed by the Antibiotics Florastor Florajen Align or try Activia in Yogurt Probiotics reduce the risk of antibiotic induced diarrhea Fall at home 02/06/2024 Assessment & Plan (02/06/2024 11:36 AM EDT): S/p fall at hit lip Needs PT Patient was getting off bed and hit arm and fall. Had some dizziness History of COVID-19 02/06/2024 Assessment & Plan (02/06/2024 11:40 AM EDT): Patient had last March Patient inquires about new vaccine Has immunity Atherosclerosis of aorta 11/07/2023 Assessment & Plan (11/07/2023 11:20 AM EDT): Control Diabetes and Hypertension Medicare annual wellness visit, subsequent 08/07 Assessment & Plan (05/16/2024 2:05 PM EST): Colonoscopy every 10 years or Cologuard every [...] Ultrasound of Aorta to screen for Anuerysm Assessment & Plan (08/08/2023 10:58 AM EDT): Colonoscopy every 10 years or Cologuard every [...] Ultrasound of Aorta to screen for Anuerysm Dizziness 08/08/2023 Assessment & Plan (08/08/2023 11:07 AM EDT): Some trouble with left ear. 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 If classic symptoms of chest pain and does not resolve with rest go to ER Asthma 03/27/2023 Flatulence, eructation and gas pain 02/21/2023 Assessment & Plan (02/21/2023 11:23 AM EDT): Has history of Diverticulosis and was on antibiotics which relieved the pain. Add Probiotic to help replenish the good bacteria that are destroyed by the Antibiotics Florastor Florajen Align or try Activia in Yogurt Probiotics reduce the risk of antibiotic induced diarrhea Uncontrolled type 2 diabetes mellitus with hypog lycemia 01/24/2023 Assessment & Plan (11/11/2024 11:33 AM EDT): No Tobacco use Follow ADA 1800 diet [...] and importance of healthy diet and exercise. Assessment & Plan (02/06/2024 11:37 AM EDT): No Tobacco use Follow ADA 1800 diet [...] and importance of healthy diet and exercise. Assessment & Plan (04/25/2023 11:04 AM EST): No Tobacco use Follow ADA 1800 diet [...] and importance of healthy diet and exercise. 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 We made recommendations on how to control your blood pressure, and minimize your risk of these copmplications. We also discussed your current barriers to a healthy living and importance of healthy diet and exercise. Prior to your visit today we have reviewed your chart and formed a plan to assist with providing you the best possible care. We reviewed the possible complications of hypertension including, stroke, heart failure and kidney impairment. In addition, we discussed your medications, the importance of taking them as prescribed. [employer] handouts Assessment & Plan (04/25/2023 11:10 AM EST): Our specific goals, for your hypertension, is to keep your blood pressure less than 140/90, and the importance of weight control. We made recommendations on how to control your blood pressure, and minimize your risk of these copmplications. We also discussed your current barriers to a healthy living and importance of healthy diet and exercise. Prior to your visit today we have reviewed your chart and formed a plan to assist with providing you the best possible care. We reviewed the possible complications of hypertension including, stroke, heart failure and kidney impairment. In addition, we discussed your medications, the importance of taking them as prescribed. [employer] handouts Assessment & Plan (02/21/2023 11:09 AM EDT): Our specific goals, for your hypertension, is to keep your blood pressure less than 140/90, and the importance of weight control. We made recommendations on how to control your blood pressure, and minimize your risk of these copmplications. We also discussed your current barriers to a healthy living and importance of healthy diet and exercise. Prior to your visit today we have reviewed your chart and formed a plan to assist with providing you the best possible care. We reviewed the possible complications of hypertension including, stroke, heart failure and kidney impairment. In addition, we discussed your medications, the importance of taking them as prescribed. [employer] handouts Bilateral cataracts 10/18/2022 Degeneration of lumbar intervertebral disc 10/18 Diabetic neuropathy 10/18/2022 Assessment & Plan (11/07/2023 11:18 AM EDT): No Tobacco use Follow ADA 1800 diet [...] and importance of healthy diet and exercise. Assessment & Plan (12/27/2022 11:15 AM EDT): No Tobacco use Follow ADA 1800 diet [...] and importance of healthy diet and exercise. Probably needs Human based Short acting insulin Diabetic nephropathy associa osmany with type 2 diabetes mellitus 10/18/2022 Assessment & Plan (08/08/2023 10:52 AM EDT): No Tobacco use Follow ADA 1800 diet [...] and importance of healthy diet and exercise. Assessment & Plan (07/24/2023 11:03 AM EDT): No Tobacco use Follow ADA 1800 diet [...] and importance of healthy diet and exercise. Assessment & Plan (06/26/2023 11:26 AM EST): No Tobacco use Follow ADA 1800 diet [...] and importance of healthy diet and exercise. Numbers look better. Patient has learned to adjust her insulin and she is not having any Hypoglycemia. She knows which foods cause an elevation in sugars Assessment & Plan (01/24/2023 11:11 AM EDT): No Tobacco use Follow ADA 1800 diet [...] and importance of healthy diet and exercise. Diabetic retinopathy 10/18/2022 Dysphagia 10/18/2022 Essential hypertension 10/18/2022 Assessment & Plan (05/16/2024 2:08 PM EST): Narrative & [place] [address] Cardiology Report Signed Patient: WILLIE ESPINOSA MR#: [id number] : 1940 Acct:[id number] Age/Sex: 83 / F ADM Date: 11/23/23 Loc: CARD Attending Dr: RIO THAYER Ordering Physician: RIO THAYER Date of Service: 11/23/23 Procedure(s): CA echo doppler complete Accession Number(s): [id number] cc: [id number] Patient Name: WILLIE ESPNIOSA MR#: [id number] : 1940 Exam Date: 11/23/2023 Ordering Doctor: [...] free space; trivial effusion versus fat pad Assessment & Plan (11/07/2023 11:19 AM EDT): Our specific goals, for your hypertension, is to keep your blood pressure less than 140/90, and the importance of weight control. We made recommendations on how to control your blood pressure, and minimize your risk of these copmplications. We also discussed your current barriers to a healthy living and importance of healthy diet and exercise. Prior to your visit today we have reviewed your chart and formed a plan to assist with providing you the best possible care. We reviewed the possible complications of hypertension including, stroke, heart failure and kidney impairment. In addition, we discussed your medications, the importance of taking them as prescribed. DASH diet handouts Gastroesophageal reflux disease 10/18/2022 Hypoglycemia 10/18/2022 Hypothyroidism 10/18/2022 Assessment & Plan (01/24/2023 11:10 AM EDT): This is a chronic medical condition that is stable since last assessment. No changes in treatment are suggested at this time. Malignant neoplasm of sigmoid colon 10/18/2022 Assessment & Plan (11/07/2023 11:20 AM EDT): Follow-up with Hem Onc Mixed hyperlipidemia 10/18/2022 Nonproliferative diabetic re tinopathy associated with type 2 diabetes mellitus 10/18/2022 Osteopenia 10/18/2022 Osteoarthritis of hip 10/18/2022 Restless legs 10/18/2022 Chronic kidney disease, stage 3b 10/18/2022 Assessment & Plan (08/12/2024 10:58 AM EDT): Monitor Increase fluids Avoid nephrotoxic substances Avoid NSAIDs such as Ibuprofen, Motrin, Naprosyn. Increase fluids. Assessment & Plan (02/21/2023 11:20 AM EDT): Increase fluids Avoid NSAIDs Tubular adenoma 10/18/2022 Urolith 10/18/2022 Vitamin D deficiency 10/18/2022 History of malignant neoplasm of colon Hiatal hernia 05/21/2020 Radiculopathy, lumbar region 08/01/2016 Sacrococcygeal disorders, not elsewhere classifi ed 08/01/2016 Spondylosis without myelopat hy or radiculopathy, lumbar region 08/01/2016 Spondylosis without myelopat hy or radiculopathy, lumbosacral region 08/01/2016 Other intervertebral disc displacement, lumbar r egion 08/01/2016 Resolved Problems Problem Noted Date Diagnosed Date Resolved Date Acute cough 03/27/2023 06/08/2023 Upper respiratory tract infection 03/27/2023 04/11/2023 Body mass index 40.0-44.9, adult 06/23/2020 07/24/2023 Encounters Date Type Department Care Team Description 12/19/2024 Abstract [facility] [address] [facility] [address] [place] [address] Rio Thayer MD 12/16/2024 Patient Outreach [facility] [address] [place] [address] Candice Randle LPN 12/05/2024 3:30 PM EDT Office Visit [facility] [address] [place] [address] Zaina Leonardo MD Seborrheic keratosis (Primary Dx); History of basal cell carcinoma; Seborrheic keratosis, inflamed; Actinic keratosis; Milia 12/05/2024 Bamboo flowsheet [facility] [address] [place] [address] Zaina Leonardo MD 12/05/2024 Travel 11/26/2024 Clinisync Result Encounter [facility] External Department Unsolicited Provider, Generic External Data 11/25/2024 Patient Outreach [facility] [address] [place] [address] Candice Randle LPN 11/22/2024 Abstract [facility] [address] [facility] [address] [place] [address] Rio Thayer MD 11/15/2024 Patient Outreach [facility] [address] [place] [address] Candice Randle LPN 11/11/2024 11:00 AM EDT Office Visit [facility] [address] [facility] [address] [place] [address] Rio Thayer MD Other chest pain (Primary Dx); Asthma, unspecified asthma severity, unspecified whether complicated, unspecified whether persistent (HCC); Uncontrolled type 2 diabetes mellitus with hypoglycemia, unspecified hypoglycemia coma status (HCC) 11/11/2024 Patient Outreach [facility] [address] [place] [address] Candice Randle LPN 11/11/2024 Travel 10/24/2024 Patient Outreach [facility] [address] [place] [address] Candice Randle LPN 10/18/2024 Refill [facility] [address] [facility] [address] [place] [address] Rio Thayer MD Essential hypertension from Last 3 Months Immunizations Immunization Administration Dates Next Due DTaP 01/30/2014 Influenza, High Dose Seasona l, Preservative Free 02/12/2021,02/24/2020 Influenza, High-dose Seasona l, Quadrivalent, Preservative Free 02/06/2024,01/24/2023,02/14/2022,02/23 Influenza, injectable, MDCK, preservative free, quadrivalent 03/30/2017 Influenza, injectable, quadrivalent 02/21/2018 Influenza, seasonal, injectable 01/30/2014 Pneumococcal Conjugate PCV 13 03/05/2015 Pneumococcal Polysaccharide PPSV23 03/08/2011 Family History Medical History Relation Name [...] often do you attend chur ch or uatsdin services? More than 4 times per year 11/01/2022 Do you belong to any clubs o r organizations such as anglican groups, unions, fraternal or athletic groups, or [...] Recorded Patient Health Questionnaire-2 Score 0 11/11/2024 [facility] [place] of Occupat ional Health - Occupational Stress [...] place to sleep or slept in a half-way (including now)? No 11/01/2022 Comments Unknown Sex and Gender Information Value Date Recorded Sex Assigned at Not on file Legal Sex Female 6:59 PM EDT Gender Identity Not on file Sexual Orientation Not on file Last Filed Vital Signs Vital Sign Reading Time Taken Comments Blood Pressure 138/78 11/11/2024 11:19 AM EDT Pulse 66 11/11/2024 11:19 AM EDT Temperature 37.7 C (99.8 F) 10/04/2023 11:39 AM EDT Respiratory Rate 16 10/04/2023 11:39 AM EDT Oxygen Saturation 95% 11/11/2024 11:19 AM EDT Inhaled Oxygen Concentration - - Weight 80.7 kg (178 lb) 11/11/2024 11:19 AM EDT Height 149.9 cm (4' 11 ) 11/11/2024 11:19 AM EDT Body Mass Index 35.95 11/11/2024 11:19 AM EDT Plan of Treatment Upcoming Encounters Date Type Department Care Team (Late st Contact Info) Description 02/10/2025 10:30 AM EDT [facility] [address] [facility] [address] [place] [address] Rio Thayer MD [address] [facility] [address] [place] [address] 06/05/2025 1:50 PM EST [facility] [address] [place] [address] Zaina Leonardo MD [address] [facility] [address] [place] [address] Health Maintenance Due Date Last Done Comments Influenza Vaccine (#1) 2024 , 01/24/2023, 02/14/2022, Additional history exists Diabetes: Retinopathy Screening 01/17/2025 01/18/2024, 09/30/2022, 11/12/2021, Additional history exists Diabetes: Hemoglobin A1C 02/11/2025 025, 08/12/2024, 05/16/2024, Additional history exists Diabetes: Urine Protein Screening 08/12/2025 025, 07/24/2023 Pneumococcal Vaccine: 65+ Years Completed 5, 03/08/2011 Procedures Procedure Name Priority Date/Time Associated Diagnosis Comments CRYOTHERAPY SKIN LESION Routine 12/05/2024 3:39 PM EDT Actinic keratosis CRYOTHERAPY SKIN LESION Routine 12/05/2024 3:38 PM EDT Seborrheic keratosis, inflamed ALL THYROID STIM HORMONE Routine 11/26/2024 9:26 AM EDT ALL LIPID PROFILE (FASTING) Routine 11/26/2024 9:26 AM EDT ALL MAGNESIUM Routine 11/26/2024 9:26 AM EDT [facility] CMP (CMP) (FOR REMOTE [facility] USE) Routine 11/26/2024 9:26 AM EDT ALL CBC WITH AUTO DIFF Routine 11/26/2024 9:26 AM EDT POCT GLYCATED HEMOGLOBIN, TOTAL Routine 11/11/2024 11:35 AM EDT Uncontrolled type 2 diabetes mellitus with hypoglycemia, unspecified hypoglycemia coma status (HCC) MICROALBUMIN / CREATININE URINE RATIO Routine 08/12/2024 11:13 AM EDT Uncontrolled type 2 diabetes mellitus with hypoglycemia, unspecified hypoglycemia coma status (HCC) DIABETIC RETINOPATHY SCREENING - OU - BOTH EYES Routine 01/18/2024 from Last 3 Months or Most Recently Relevant to Health Maintenance Results * Cryotherapy, skin lesion (12/05/2024 3:39 PM EDT) Zaina Leonardo MD DERM PROCEDURE ORDERABLES Fin al Result * Cryotherapy, skin lesion (12/05/2024 3:38 PM EDT) Zaina Leonardo MD DERM PROCEDURE ORDERABLES Fin al Result * (ABNORMAL) [facility] CMP (CMP) (FOR REMOTE [facility] USE) (11/26/2024 9:26 AM EDT) SODIUM 141 136 - 145 mmol/L [facility] POTASSIUM 5.1 3.5 - 5.1 mmol/L [facility] CHLORIDE 105 98 - 107 mmol/L [facility] CARBON DIOXIDE 28.8 21.0 - 32.0 mmol/L [facility] ANION GAP 12.3 TBH GLUCOSE 192(H) 74 - 106 mg/dL [facility] BLOOD UREA NITROGEN 37.0(H) 7.0 - 18.0 mg/dL [facility] CREATININE 1.08(H) 0.55 - 1.02 mg/dL TBH TBH EGFR-AF SUDANESE 59(L) >=60 mL/min/1. 73m 2 TBH TBH EGFR-NON AF SUDANESE 48(L) >=60 mL/min/1. 73m 2 TBH BUN CREATININE RATIO 34.3 TBH CALCIUM 9.6 8.5 - 10.1 mg/dL TBH BILIRUBIN TOTAL 0.6 0.2 - 1.0 mg/dL TBH ASPARTATE AMINO TRANSFERASE 14(L) 15 - 37 U/L TBH ALANINE AMINOTRANSFERASE 20 14 - 59 U/L TBH ALKALINE PHOSPHATASE 87 46 - 116 U/L TBH TOTAL PROTEIN 6.8 6.4 - 8.2 g/dL TBH ALBUMIN LEVEL 3.4 3.4 - 5.0 g/dL TBH GLOBULIN 3.4 g/dL TBH ALBUMIN GLOBULIN RATIO 1.0 TBH 11/26/2024 9:26 AM EDT 11/26/2024 9:28 AM EDT Narrative [facility] - 11/26/2024 10:07 AM EDT Generic External Data Provider [facility]IN[facility]YNC F inal Result Performing Organization Address [facility] [place] de Phone Number [facility] * ALL THYROID STIM HORMONE (11/26/2024 9:26 AM EDT) THYROID STIMULATING HORMONE 1.163 0.358 - 3.740 uIU/mL TB 11/26/2024 9:26 AM EDT 11/26/2024 9:28 AM EDT Narrative [facility] - 11/26/2024 10:07 AM EDT Generic External Data Provider CLINISYNC F inal Result Performing Organization Address [facility] [place] de Phone Number [facility] * ([facility]AL) ALL MAGNESIUM (11/26/2024 9:26 AM EDT) MAGNESIUM 1.5(L) 1.8 - 2.4 mg/dL TB 11/26/2024 9:26 AM EDT 11/26/2024 9:28 AM EDT Narrative [facility] - 11/26/2024 10:07 AM EDT Generic External Data Provider CLINISYNC F inal Result Performing Organization Address City/[facility]/ZIP Co de Phone Number [facility] * (ABNORMAL) ALL LIPID PROFILE (FASTING) (11/26/2024 9:26 AM EDT) TRIGLYCERIDES 155(H) <=150 mg/dL TBH CHOLESTEROL 202(H) <=200 mg/dL TB HDL CHOLESTEROL 40 40 - 60 mg/dL TB Comment: > or =60 mg/dl - LOW CARDIOVASCULAR RISK <40 mg/dl - HIGH CARDIOVASCULAR RISK LDL CHOLESTEROL CALCULATED 131.0 mg/dL TB Comment: <100 mg/dl OPTIMAL 100-129 mg/dl NEAR OR ABOVE OPTIMAL 130-159 mg/dl BORDERLINE HIGH 160-189 mg/dl HIGH >190 mg/dl VERY HIGH VLDL CHOLESTEROL 31.0 mg/dL TB CHOL HDL RATIO 5.1 TB Comment: 3.3 - 4.4 LOW RISK 4.4 - 7.1 AVERAGE RISK 7.1 - 11.0 MODERATE RISK >11.0 HIGH RISK 11/26/2024 9:26 AM EDT 11/26/2024 9:28 AM EDT Narrative [facility] - 11/26/2024 10:07 AM EDT Generic External Data Provider [facility] F inal Result [facility] * ([facility]NORMAL) ALL CBC WITH AUTO DIFF (11/26/2024 9:26 AM EDT) TBH WBC 7.5 4.0 - 11.0 10 3/uL TBH TBH RBC 3.81(L) 4.20 - 5.40 10 6/uL TBH TBH HGB 11.0(L) 12.0 - 16.0 g/dL TB TBH HCT 35.1(L) 36.0 - 48.0 % TBH TB MCV 92.1 81.0 - 99.0 fL TBH TB MCH 28.9 26.7 - 34.0 pg TBH TB MCHC 31.3 29.9 - 35.2 g/dL TBH TBH RDW 13.8 11.0 - 15.0 % TBH TBH PLT 184 150 - 450 10 3/uL TBH TBH MPV 10.7 9.5 - 13.5 fL TBH NEUTROPHILS PERCENT AUTO 61.3 43.0 - 75.0 % TBH LYMPHOCYTES PERCENT AUTO 28.4 20.5 - 60.0 % TBH MONOCYTES PERCENT AUTO 7.2 1.7 - 12.0 % TBH TBH EO % 2.0 0.9 - 7.0 % TBH BASOPHILS PERCENT AUTO 0.4 0.2 - 2.0 % TBH IMMATURE GRANULOCYTES PCT AUTO 0.7(H) 0.0 - 0.5 % TBH NEUTROPHILS ABSOLUTE AUTO 4.6 1.4 - 6.5 10 3/uL TBH LYMPHOCYTES ABSOLUTE AUTO 2.1 1.2 - 3.8 10 3/uL TBH MONOCYTES ABSOLUTE AUTO 0.5 0.3 - 0.8 10 3/uL TBH TBH EO # 0.2 0.0 - 0.7 10 3/uL TBH BASOPHILS ABSOLUTE AUTO 0.0 0.0 - 0.1 10 3/uL TBH IMMATURE GRANULOCYTES ABS AUTO 0.05(H) 0.00 - 0.03 10 3/uL TBH 11/26/2024 9:26 AM EDT 11/26/2024 9:28 AM EDT Narrative [facility] - 11/26/2024 9:38 AM EDT us Generic External Data Provider [facility] F inal Result [facility] * (ABNORMAL) POCT Glycated hemoglobin, total (11/11/2024 11:35 AM EDT) Hemoglobin A1C 7.7 Blood 11/11/2024 11:3 5 AM EDT us Rio Thayer MD POINT OF CARE TEST ENTER/EDIT OR DERABLES Final Result * (ABNORMAL) Microalbumin / creatinine urine ratio (08/12/2024 11:13 AM EDT) CREATININE, RANDOM URINE 26 20 - 275 mg/dL [facility] ALBUMIN, URINE 1.1 See Note: mg/dL [facility] Comment: Reference Range: Reference Range Not established ALBUMIN/CREATININE RATIO, RANDOM URINE 42(H) <30 mg/g creat [facility] Comment: The ADA defines abnormalities in albumin excretion as follows: Albuminuria Category Result (mg/g creatinine) Normal to Mildly increased <30 Moderately increased 30-299 Severely increased > OR = 300 The ADA recommends that at least two of three specimens collected within a 3-6 month period be abnormal before considering a patient to be within a diagnostic category. Urine Urine specimen obtained by clean catch procedure / Unknown 08/12/2024 11:13 AM EDT 08/12/2024 11:14 AM EDT Narrative Resulting Agency Comment Performing Organization Information Site ID: QPT Name: [facility] Address: [address] [place] [address], [address] [place] [id number] Director: Shashank Stahl MD us Rio Thayer MD LAB URINE ORDERABLES Final Resul t Performing Organization Address City/State/[facility] Co de Phone Number [facility] * Diabetic Retinopathy Screening - OU - Both Eyes (01/18/2024) RESULTS normal Anatomical Region Laterality Modality Head Other 01/18/2024 us Rio Thayer MD OPHTH PHOTOGRAPHY Final Result from Last 3 Months or Most Recently Relevant to Health Maintenance Insurance [employer] [place] [employer] 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
--- OUTSIDE RECORDS SUMMARY | 2024-12-30 11:57 | XMS_ITS | Encounter Summary ---
Author Organization [facility] Address [address] [facility] [place] [address] Care Team Providers Care Practice Managers Name Role Phone Rio Murray MD Primary Care Provider Britni Irwin RN Unavailable Benito Llamas MD Unavailable Eriberto Hdez Grace DO Unavailable [phone] Candice Randle LPN Unavailable Rio Murray MD Unavailable Encounter Details Date Type Department Care Team (Late st Contact Info) Description 05/30/2024 Abstract [facility] [place] [facility] [address] [facility] [address] [place] [id number] Rio Murray MD [address] [place] [address] [place] [address] Social History Tobacco Use Types Packs/Day Years [...] How often do you attend chur or orthodoxy services? More than 4 times per year 11/01/2022 Do you belong to any clubs o r organizations such as mandaeism groups, unions, fraternal [...] Recorded Patient Health Questionnaire-2 Score 0 05/16/2024 [facility] - Occupational Stress [...] place to sleep or slept in a halfway (including now)? No 11/01/2022 Comments Unknown Sex [...] EDT Office Visit [facility] [place] [facility] [address] [facility] [address] [place] [address] Rio Murray MD [address] [facility] [address] [place] [address] 06/05/2025 1:50 PM EST [facility] [address] [place] [address] [place] [phone] Zaina Leonardo MD [address] [place] [place] [address] documented as of this encounter Visit Diagnoses Not on filedocumented in this encounter Care Teams Practice Managers Relationship Specialty Start Date End Date Rio Murray MD [address] [place] [address] [place] [address] PCP - General Family Medicine 09/01/22 Rio Murray MD [address] [facility] [address] [place] [address] PCP - Medical [facility] 04/24/2404/23 Britni Irwin, RN [address] [place] [facility] [place] [address] [facility] 05/31/24 07/10/24 Benito Llamas MD [address] [place] [address] [place] [address] Referring Physician Dermatology 07/03/24 Eriberto Hdez DO [address] [place] [address] Otolaryngology 07/03/24 Candice Randle LPN [address] [place] [address] [place] [address] 07/10/24 documented as of this encounter
--- OUTSIDE RECORDS SUMMARY | 2024-12-30 12:09 | XMS_ITS | CCD ---
Author Organization [facility] Care Team Providers Care Parent Educator Name Role Phone JEOVANY, DR BAUM Attending Unavailable JEOVANY, DR BAUM Consulting Unavailable JEOVANY, DR BAUM Primary Care Unavailable JEOVANY, DR BAUM Admitting Unavailable PUEBLO, DR ALISA Shaffer Consulting Unavailable Bautista Thayer MD Unavailable Bautista Thayer MD Primary Care Provider Bautista Thayer MD Unavailable Dc HUYNH, Britni Unavailable Korey Valencia DO Attending Provider Batuista Thayer MD Primary Care Provider Korey Valencia DO Attending Provider Bautista Thayer MD Primary Care Provider Vernell Llamas MD Unavailable Eriberto Hdez DO Unavailable [phone] Korey Valencia Attending Unavailable Bautista Thayer Primary Care Unavailable Korey Valencia Admitting Unavailable Korey Valencia Attending Unavailable Bautista Thayer Primary Care Unavailable Korey Valencia Admitting Unavailable Candice Randle LPN Unavailable Unavailable Bautista Thayer MD Unavailable Candice Randle LPN Unavailable Bautista Thayer MD Primary Care Provider BAUTISTA THAYER Attending Unavailable VERNELL LLAMAS Attending Unavailable KOREY VALENCIA Attending Unavailable ERIBERTO HDEZ Attending Unavailable VERNELL LLAMAS Referring Unavailable KOREY VALENCIA Attending Unavailable BAUTISTA THAYER Attending Unavailable BAUTISTA THAYER Attending Unavailable MUKESH FERNANDEZ Attending Unavailable BAUTISTA THAYER Attending Unavailable MUKESH FERNANDEZ Attending Unavailable BAUTISTA THAYER Attending Unavailable NAGI MURRY Attending Unavailable JEOVANY, ERASMOEN MABALAY Primary Care Unavailable NAGI MRURY H Referring Unavailable NAGI MURRY H Referring Unavailable JEOVANY, RUGEN MABALAY Primary Care Unavailable NAGI MURRY Attending Unavailable NAGI MURRY H Referring Unavailable JEOVANY, RUGEN MABALAY Primary Care Unavailable Allergies Allergy Classification Reported Allergen(s) Allergy Type Date of Onset Reaction(s) Facility (20 sources) Aluminum aspirin; Translations: [ASPIRIN] Drug Allergy 3 [facility] (20 sources) gabapentin Drug Allergy 7 Hallucinations [facility] (1 source) Aspirin Drug Allergy 5 [facility] (2 sources) Aspirin Drug Allergy 3 [facility] Medications Current Medications Medication Drug Class(es) Dates [...] every 6 (six) hours if needed. Active [id number] actuat albuterol 0.09 mg/actuat metered dose inhaler (20 sources) beta2-Adrenergic Agonist Start: 11-11-2024 take 2 puff(s) by inhalation every six hours albuterol 90 mcg/actuation inhaler Inhale 2 puffs every 6 hours if needed for shortness of breath. 11/11/2024 Active Start: 06-24-2024 take 2 puff(s) by inhalation every four hours as needed for wheezing [...] breath 18 g 3 11/11/2024 Active Start: 03-27-2023 End: 03-26-2024 albuterol (2.5 MG/3ML) 0.083 % nebulizer solution Indications: Asthma, unspecified asthma severity, unspecified whether complicated, unspecified whether persistent (HCC) Take 3 mL (2.5 mg) by nebulization every 6 (six) hours if needed for wheezing 75 mL 11 03/27/2023 Active Start: 03-27-2023 take 2 puff(s) by inhalation every six [...] times daily at mealtime baclofen (Lioresal) 10 mg tablet TAKE 1 TABLET BY MOUTH WITH FOOD or milk THREE TIMES DAILY 03/31/2023 Active benzonatate 200 mg oral capsule (4 [...] Blood Gluc Receiv er (FreeStyle Ivy 2 [place]) device (20 sources) Start: 08-22-2022 Continuous Blo od Gluc Oxide Furnace Tender (FreeStyle Ivy 2 [place]) device USE DIRECTED DAILY FOR 365 DAYS 08/22/2022 Active Start: 08-22-2022 Continuous Blo od Gluc Oxide Furnace Tender (FreeStyle Ivy 2 [place]) device USE DIRECTED DAILY FOR 365 DAYS 0 08/22/2022 Active Continuous Blood Gluc Sensor (FreeStyle Ivy 2 Sensor) misc (4 sources) Start: 08-22-2022 Continuous Blo od Gluc Sensor (FreeStyle Ivy 2 Sensor) misc USE 1 SENSOR EVERY 14 DAYS 0 08/22/2022 Active Continuous Glucose Oxide Furnace Tender (FreeStyle Ivy 2 [place]) device (8 sources) Start: 08-20-2024 Continuous Glu cose Oxide Furnace Tender (FreeStyle Ivy 2 [place]) device Indications: Uncontrolled type 2 diabetes mellitus with hypoglycemia, unspecified hypoglycemia coma status (HCC) Inject 1 Device under the skin Daily 1 each 08/20/2024 Active Start: 08-20-2024 Continuous Glu cose Oxide Furnace Tender (FreeStyle Ivy 2 [place]) device Indications: Uncontrolled type 2 diabetes mellitus with hypoglycemia, unspecified hypoglycemia coma status (CMS/HCC) Inject 1 Device under the skin Daily 1 each 08/20/2024 Active Continuous Glucose Sensor (FreeStyle Ivy 2 Sensor) misc (20 sources) Start: 08-20-2024 Continuous Glu cose Sensor (FreeStyle Ivy 2 Sensor) misc Indications: Uncontrolled type 2 diabetes mellitus with hypoglycemia, unspecified hypoglycemia coma status (HCC) Inject 1 Device under the skin every 14 (fourteen) days 6 each 3 08/20/2024 Active Start: 08-20-2024 Continuous Glu cose Sensor (FreeStyle Ivy 2 Sensor) misc Indications: Uncontrolled type 2 diabetes mellitus with hypoglycemia, unspecified hypoglycemia coma status (CMS/HCC) Inject 1 Device under the skin every 14 (fourteen) days 6 each 3 08/20/2024 Active Start: 05-16-2024 Continuous Glu cose Sensor (FreeStyle Ivy 2 Sensor) misc Indications: Uncontrolled type [...] Glu cose Sensor (FreeStyle Ivy 2 Sensor) misc Indications: Uncontrolled type 2 diabetes mellitus with hypoglycemia, unspecified hypoglycemia coma status (CMS/HCC) Inject 1 Device under the skin every 14 (fourteen) days 6 each 3 02/06/2024 Active Start: 01-18-2024 End: 02-06-2024 Continuous Glucose Sensor (F reeStyle Ivy 2 Sensor) misc USE 1 SENSOR EVERY 14 DAYS 01/18/2024 02/06/2024 Discontinued (Reorder) Elastic Bandages & Supports (Post-OP Shoe/Soft Top [...] every week June 24, 2024 1:00am Start: 12-27-2022 End: 05-16-2024 take 1 capsule by mouth every week ergocalciferol (Vitamin D2) 1.25 MG (83328 UT) capsule Indications: Vitamin D deficiency Take 1 capsule (1.25 mg) by mouth 1 (one) time per week 12 capsule 3 05/18/2024 Active Flash Glucose Sensor (Freest yle Ivy [...] solution (20 sources) Corticosteroid Start: 02-29-2024 fluocinonide ( Lidex) 0.05 % external solution Indications: Psoriasis vulgaris Apply to affected areas on the scalp, up to twice a day when flared, 30 day supply 60 mL 02/29/2024 Active furosemide 40 mg oral tablet (20 sources) Loop Diuretic Start: 12-19-2024 End: 12-19-2025 take 1 tablet by mouth once daily before mealtime furosemide (Lasix) 40 mg tablet Indications: Essential (primary) hypertension Take 1 tablet (40 mg) by mouth once daily in the morning. Take before meals. 90 tablet 3 12/19/2024 12/19/2025 Active Start: 12-27-2022 End: 12-19-2024 take 1 tablet by mouth once daily before mealtime furosemide (Lasix) 20 mg tablet Take 1 tablet (20 mg) by mouth once daily in the morning. Take before meals. 03/31/2023 12/19/2024 Discontinued (Reorder) gabapentin 100 mg oral capsule (4 sources) Anti-epileptic Agent Start: 11-11-2021 End: 2024 take 1 capsule by mouth in the [...] / neomycin 3.5 mg/ml / polymyxin b 80105 unt/ml otic suspension (2 sources) Aminoglycoside Antibacterial, Polymyxin-class Antibacterial, Corticosteroid Start: 06-08-2023 End: 06-15-2023 neomycin-polymyx in-hydrocortison e (Cortisporin) 3.5-86409-8 otic suspension Indications: Acute diffuse otitis externa [...] ml insulin glargine 300 unt/ml pen injector (14 sources) Insulin Analog Start: 10-24-2024 End: 10-24-2025 [...] ml insulin lispro-aabc 100 unt/ml pen injector (12 sources) Insulin Analog Start: 11-11-2024 End: 12-11-2024 insulin lispro-aabc (Lyumjev KwikPen) 100 UNIT/ML pen Indications: Uncontrolled type 2 diabetes mellitus with hypoglycemia, unspecified hypoglycemia coma status (HCC) Inject 8 Units under the skin in the morning and 8 Units at noon and 8 Units in the evening. Inject with meals. 3 pen 11/11/2024 12/11/2024 Active Start: 09-04-2024 End: 11-11-2024 [...] (20 sources) Angiotensin 2 Receptor Reyna Start: 12-19-2024 End: 12-19-2025 take 1 tablet by mouth twice daily losartan (Cozaar) 25 mg tablet Indications: Essential (primary) hypertension Take 1 tablet (25 mg) by mouth 2 times a day. 180 tablet 3 12/19/2024 12/19/2025 Active Start: 11-01-2022 End: 12-19-2024 take 1 tablet by mouth once daily losartan (Cozaar) 25 mg tablet Take 1 tablet (25 mg) by mouth once daily. 03/31/2023 12/19/2024 Discontinued (Reorder) magnesium oxide 400 mg oral tablet (1 source) Start: 12-19-2024 End: 12-19-2025 take 1 tablet by mouth twice daily magnesium oxide (Mag-Ox) 400 mg tablet Indications: Murmur, cardiac Take 1 tablet (400 mg) by mouth 2 times a day. 180 tablet 3 12/19/2024 12/19/2025 Active ofloxacin 3 mg/ml ophthalmic solution (4 [...] for dry eye(s) June 24, 2024 12:00am rosuvastatin calcium 10 mg oral tablet (1 source) HMG-CoA Reductase Inhibitor Start: 12-19-2024 End: 12-19-2025 take 1 tablet by mouth once daily rosuvastatin (Crestor) 10 mg tablet Indications: Mixed hyperlipidemia Take 1 tablet (10 mg) by mouth once daily. 90 tablet 3 12/19/2024 12/19/2025 Active traMADol hydrochloride 50 mg oral tablet (20 [...] severe pain. 180 tablet 0 12/27/2022 Active Completed/Discontinued Medications Medication Drug Class(es) Dates Sig (Normalized) Sig (Original) 24 hr dilTIAZem hydrochloride 120 mg extended release oral capsule (2 sources) Calcium Channel Reyna Start: 11-21-2024 End: 11-21-2025 take 1 capsule by mouth once daily dilTIAZem CD (Cardizem CD) 120 mg 24 hr capsule Indications: Essential (primary) hypertension , Localized edema Take 1 capsule (120 mg) by mouth once daily. 90 capsule 3 11/21/2024 12/19/2024 Discontinued (Therapy completed) Problems Active Problems Problem Classification Problem Date Documented Date Episodic/Chronic Administrative/social admission (6 sources) First encounter by subject; Translations: [Persons encountering health services in other specified circumstances] Onset: 11-21-2024 11-21-2024 Episodic Asthma (20 sources) Asthma; Translations: [Unspecified asthma, uncomplicated] Onset: 03-27-2023 03-27-2023 Chronic Blindness and vision defects (5 sources) Blurring of visual image; Translations: [Other visual disturbances] Onset: 11-21-2024 11-21-2024 Episodic Cancer of bronchus; lung (5 sources) History of malignant neoplasm of thoracic [...] 08-08-2023 08-08-2023 Episodic Congestive heart failure; nonhypertensive (7 sources) Acute diastolic heart failure; Translations: [Acute [...] hypertension] Onset: 03-02-2022 Chronic Heart valve disorders (12 sources) Mitral valve regurgitation; Translations: [Nonrheumatic mitral (valve) insufficiency] Onset: 11-21-2024 11-21-2024 Chronic Heart valve disorders (6 sources) Heart murmur; Translations: [Cardiac murmur, unspecified] Onset: 11-21-2024 11-21-2024 Episodic Hypertension with complications and secondary hypertension (20 sources) 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; Translations: [Hypertensive heart and chronic kidney disease without heart failure, with stage 1 through stage 4 chronic kidney disease, or unspecified chronic kidney disease] Onset: 10-18-2022 10-18-2022 Chronic Immunizations and screening for infectious disease (4 sources) Patient encounter status; Translations: [Encounter for immunization] Onset: 11-21-2024 02-06-2024 Episodic Malaise and fatigue (3 sources) Fatigue; Translations: [Chronic fatigue, unspecified] Onset: 11-21-2024 11-21-2024 Chronic Malaise and fatigue (2 sources) Fatigue; Translations: [Other fatigue] Onset: 11-21-2024 11-21-2024 Episodic Neoplasms of unspecified nature or uncertain behavior (2 sources) Neoplastic disease; Translations: [Neoplasm of unspecified behavior of bone, soft tissue, and skin] 02-29-2024 Episodic Nonspecific chest pain (18 sources) Chest pain, unspecified; Translations: [Chest pain] [...] Onset: 06-27-2024 Episodic Other aftercare (2 sources) skilled nursing (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 of insulin; Translations: [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 (Multi)] Onset: 11-21-2024 Episodic Other and ill-defined heart disease (5 sources) Left ventricular hypertrophy; Translations: [Cardiomegaly] Onset: 11-21-2024 11-21-2024 Chronic Other and ill-defined heart disease (3 sources) Bilateral enlargement of atria; Translations: [Cardiomegaly] Onset: 11-21-2024 11-21-2024 Chronic Other and ill-defined heart disease (5 sources) Diastolic dysfunction; Translations: [Other ill-defined heart [...] injuries and conditions due to external causes (4 sources) History of fall; Translations: [History of falling] Onset: 11-21-2024 11-21-2024 Episodic Other injuries and conditions due to external causes (2 sources) History of falling; Translations: [History of falling] Onset: 11-21-2024 Episodic Other lower respiratory disease (1 source) Shortness of breath; Translations: [SHORTNESS OF BREATH] Onset: 03-07-2022 Episodic Other lower respiratory disease (4 sources) Orthopnea; Translations: [Orthopnea] Onset: 11-21-2024 11-21-2024 Episodic Other lower respiratory disease (1 source) Orthopnea; Translations: [Orthopnea] Onset: 11-21-2024 Episodic Other non-epithelial cancer of skin (20 sources) Basal cell carcinoma of nose; Translations: [...] Chronic Other nutritional; endocrine; and metabolic disorders (20 sources) Body mass index 40+ - severely obese; Translations: [Body mass index (BMI) 40.0-44.9, adult] Onset: 06-23-2020 Resolved: 07-24-2023 01-23-2023 Chronic Other nutritional; endocrine; and metabolic disorders (20 sources) Obesity caused by energy imbalance; Translations: [Morbid (severe) obesity due to excess calories] Onset: 12-27-2022 05-16-2024 Chronic Other nutritional; endocrine; and metabolic disorders (20 sources) Body mass index 30+ - obesity; Translations: [Body mass index (BMI) 35.0-35.9, adult] Onset: 05-16-2024 05-16-2024 Chronic Other nutritional; endocrine; and metabolic disorders (2 sources) Morbid (severe) obesity due to excess calories; Translations: [Morbid (severe) obesity due to excess calories (Multi)] Onset: 12-19-2024 Chronic Other nutritional; endocrine; and metabolic disorders (2 sources) Obesity, unspecified; Translations: [Obesity, unspecified] Onset: 11-21-2024 Chronic Other skin disorders (20 sources) Actinic keratosis; Translations: [Actinic keratosis] Onset: 10-18-2022 10-18-2022 Episodic Other skin disorders (4 sources) Seborrheic keratosis; Translations: [Other seborrheic keratosis] 02-29-2024 Episodic Other skin disorders (4 sources) Inflamed seborrheic keratosis; Translations: [Inflamed seborrheic keratosis] 02-29-2024 Episodic Other skin disorders (2 sources) Milia; Translations: [Epidermal cyst] 12-05-2024 Episodic Peripheral and visceral atherosclerosis (20 sources) Atherosclerosis of aorta; Translations: [Atherosclerosis of aorta] Onset: 11-07-2023 11-07-2023 Chronic Residual codes; unclassified (6 sources) Localized edema; Translations: [Localized edema] Onset: 11-21-2024 11-21-2024 Episodic Residual codes; unclassified (4 sources) Never smoked tobacco; Translations: [Other specified [...] lumbar region] Onset: 08-01-2016 10-18-2022 Chronic Syncope (6 sources) Near syncope; Translations: [Syncope and collapse] Onset: 11-21-2024 11-21-2024 Episodic Thyroid disorders (20 sources) Hypothyroidism; Translations: [Hypothyroidism, unspecified] Onset: 10-18-2022 10-18-2022 Chronic Unclassified (1 source) First encounter by subject 11-21-2024 Unclassified (1 source) Patient encounter status 12-19-2024 Past or Other Problems Problem Classification Problem [...] Onset: 03-27-2023 Resolved: 06-08-2023 06-08-2023 Episodic Other upper respiratory infections (20 sources) [...] lumbar region] Onset: 08-01-2016 01-23-2023 Episodic Unclassified (2 sources) Onset: 07-31-2025 07-31-2025 Results Test Name Value Interpretation Reference Range Facility No Panel Informationon 12-05 [facility] ALL CBC WITH AUTO DIFFon BASOPHILS ABSOLUTE AUTO 0 [facility] Basophils/100 WBC (Bld) 0.4 % 0.2 - 2.0 % [facility] Eosinophils/100 WBC (Bld) 2 % 0.9 - 7.0 % [facility] Erythrocyte distribution width (RBC) [Ratio] 13.8 % 11.0 - 15.0 % [facility] Hematocrit (Bld) [Volume fraction] 35.1 % Low 36.0 - 48.0 % [facility] Hemoglobin (Bld) [Mass/Vol] 11 g/dL Low 12.0 - 16.0 g/dL [facility] IMMATURE GRANULOCYTES ABS AUTO 0.05 High [facility] Immature granulocytes/100 WBC (Bld) 0.7 % High 0.0 - 0.5 % [facility] Interpretation and review of laboratory results Abnormal [facility] LYMPHOCYTES ABSOLUTE AUTO 2.1 [facility] Lymphocytes/100 WBC (Bld) 28.4 % 20.5 - 60.0 % [facility] MCH (RBC) [Entitic mass] 28.9 pg 26.7 - 34.0 pg [facility] MCHC (RBC) [Mass/Vol] 31.3 g/dL 29.9 - 35.2 g/dL [facility] MCV (RBC) [Entitic vol] 92.1 fL 81.0 - 99.0 fL [facility] MONOCYTES ABSOLUTE AUTO 0.5 [facility] Monocytes/100 WBC (Bld) 7.2 % 1.7 - 12.0 % [facility] NEUTROPHILS ABSOLUTE AUTO 4.6 [facility] Neutrophils/100 WBC (Bld) 61.3 % 43.0 - 75.0 % [facility] Platelet mean volume (Bld) [Entitic vol] 10.7 fL 9.5 - 13.5 fL [facility] TBH EO # 0.2 [facility] TBH PLT 184 [facility] TB RBC 3.81 Low [facility] TB WBC 7.5 [facility] ECG 12 Leadon 11-21-2024 [facility] Work Phone: Laboratory - Hematology and Cell countson 11-11-2024 HbA1c (Bld) [Mass fraction] 7.7 % [facility] No Panel Informationon 11-11 Interpretation and review of laboratory results Abnormal [facility] ALBUMIN, RANDOM URINE W/CREA TININEon 08-13-2024 ALBUMIN, URINE 1.1 mg/dL Normal See Note: [facility] Comment on above: Result Comment: Refe radhika Range: Reference Range Not established Performed By: #### [id number] #### [facility] [place] [address] Exposure Machine Operator: Shashank Stahl MD ALBUMIN/CREATININE RATIO, RANDOM URINE [...] By: #### 6 517 #### [facility] [place] [address] Exposure Machine Operator: Shashank Stahl MD Creatinine (U) [Mass/Vol] 26 mg/dL Normal 20-275 [facility] Comment on above: Performed By: #### 6 517 #### [facility] [place] [address] Exposure Machine Operator: Shashank Stahl MD TSH W/REFLEX TO FT4on 2024 TSH W/REFLEX TO FT4 1.28 mIU/L Normal 0.40-4.50 [facility] Comment on above: Performed By: #### 3 [id number] #### [facility] [place] [address] Exposure Machine Operator: Shashank Stahl MD Laboratory - Hematology and Cell countson 08-12-2024 HbA1c (Bld) [Mass fraction] 7.6 % [facility] No Panel Informationon 08-12 Interpretation and review of laboratory results Abnormal [facility] Pathology study report docum entOrdered By: Maciej Brown on 07-01-2024 Pathology study [facility] Other Glucose Glucometer ([facility]) [M ass/Vol]Ordered By: Korey Valencia on 06-27-2024 Glucose [Mass/Vol] Capillary blood glucose measurement by glucometer (mass/volume) [facility] Comment on above: Random Glucose Refer ence Range is dependent on time and content of last meal. Glucose of more than 200 mg/dL in a nonstressed, ambulatory subject supports the diagnosis of Diabetes Mellitus. Glucose Poct Glucometerson 0 06-27-2024 Commemt1 Glu2: Cleaned Meter Normal [facility] Comment on above: Result Comment: PERF ORMED BY: [address] [place] [address] PATHOLOGIST PHARMACIST IN CHARGE MIGUELITO JAIMES M.D. Performed By: #### G LULS #### Point of Care testing , Glucose [Mass/Vol] 110 mg/dL Normal [facility] Comment on above: Result Comment: Eads Glucose Reference Range is dependent on time and content of last meal. Glucose of more than 200 mg/dL in a nonstressed, ambulatory subject supports the diagnosis of Diabetes Mellitus. Performed By: #### G LULS #### Point of Care testing , Commemt1 Glu2: Cleaned Meter Normal [facility] Comment on above: Result Comment: PERF ORMED BY: [facility] [address] [place] [address] PATHOLOGIST PHARMACIST IN CHARGE MIGUELITO JAIMES M.D. Performed By: #### G LULS #### Point of Care testing , Glucose [Mass/Vol] 141 mg/dL Normal [facility] Comment on above: Result Comment: Eads om Glucose Reference Range is dependent on time and content of last meal. Glucose of more than 200 mg/dL in a nonstressed, ambulatory subject supports the diagnosis of Diabetes Mellitus. Performed By: #### G LULS #### Point of Care testing , Pablo 06-27-2024 L - -------- Specimen: [id number] Received: 06/28/24 Status: KEVIN Angelika Num: [id number] Spec Type: Surgical Subm Dr: Korey Valencia DO Tissues: A Debridement-Skin/Othe r Than Skin (NOSE) Procedures: HE/3, Gross/Micro L3 -------- Age/ Patient Sex Location Account Attending Physician -------- Willie Espinosa 84/F [place] [id number] Korey Valencia DO -------- SPEC NUM: [id number] RECD: 06/28/24 STATUS: KEVIN CARNEY NUM: [id number] CARMEN: 06/27/24- SERA DR: Korey Valencia DO ENTERED: 06/28/[address]: SPEC TYPE: Surgical DEPT: S ORDERED: HE3, Gross/Micro L3 ORDERED: HE3, Gross/Micro L3 Pathological Diagnosis Nasal wound, debridement, [...] A1 Bisected tapered polar tip -------- Specimen: [id number] Received: 06/28/24 Status: KEVIN Angelika Num: [id number] Spec Type: Surgical Subm Dr: Korey Valencia,DO Tissues: A Debridement-Skin/Othe r Than Skin (NOSE) Procedures: , Gross/Micro L3 -------- Patient: Willie Espinosa [id number] (Continued) -------- Specimen: [id number] Received: 06/28/24 (Continued) Gross Description (Continued) Signed (signature on file) Maciej Brown MD 07/01/24 1320 -------- Specimen: [id number] Received: 06/28/24 Status: KEVIN Carney Num: [id number] Spec Type: Surgical Subm Dr: Korey Valencia DO Tissues: A Debridement-Skin/Othe r Than Skin (NOSE) Procedures: ANGELA/Boris, Robert/Micro L3 -------- Patient: Willie Espinosa [id number] (Continued) -------- Specimen: [id number] Received: 06/28/24 (Continued) Gross Description (Continued) A2 Trisected center of specimen A3 Serially sectioned, widened polar end (3, ns, [id number] A)Moises Microscopic Description Microscopic examination is performed. CPT Codes 38082 -------- -------- Specimen: [id number] Received: 06/28/24 Status: KEVIN Carney Num: [id number] Spec Type: Surgical Subm Dr: Korey Valencia DO Tissues: A Debridement-Skin/Othe r Than Skin (NOSE) Procedures: ANGELA/3, Gross/Micro L3 -------- Patient: Willie Espinosa [id number] (Continued) -------- Signed (signature on file) Maciej Brown MD 07/01/24 1320 Normal [facility] No Panel InformationOrdered By: Korey Valencia on 06-27-2024 Bedside Glucose Comment Glu2: cleaned meter [facility] Potassiumon 06-27-2024 Potassium [Moles/Vol] 5.2 mmol/L High 3.5-5.1 [facility] Comment on above: Result Comment: PERF ORMED BY: [place] [address] PATHOLOGIST PHARMACIST IN CHARGE MIGUELITO JAIMES M.D. Performed By: #### K #### [facility] [address] [place] [address] Potassium [Moles/volume] in Serum or PlasmaOrdered By: ALISA DAWN on 06-27-2024 Potassium [Moles/Vol] Potassium [Moles/volume] in Serum or Plasma High 3.5-5.1 [facility] Basic Metabolic Panelon Anion gap [Moles/Vol] 12.8 mmol/L Normal 6.0-15.0 [facility] Comment on above: Performed By: #### B MP, CBC #### [facility] [address] [place] [address] Calcium [Mass/Vol] 9.5 mg/dL Normal 8.6-10.3 [facility] Comment on above: Result Comment: PERF ORMED BY: [place] [address] PATHOLOGIST PHARMACIST IN CHARGE MIGUELITO JAIMES M.D. Performed By: #### B MP, CBC #### [facility] [facility] [address] [place], [place] [id number] [facility] Chloride [Moles/Vol] 110 mmol/L High 98-107 [facility] Comment on above: Performed By: #### B MP, CBC #### [address] CO2 [Moles/Vol] 25.9 mmol/L Normal 21.0-31.0 [facility] Comment on above: Performed By: #### B MP, CBC #### [address] Creatinine [Mass/Vol] 1.23 mg/dL High 0.60-1.20 [facility] Comment on above: Performed By: #### B MP, CBC #### [address] Estimated GFR 43.603 mL/Min Normal [facility] Comment on above: Performed By: #### B MP, CBC #### [address] Glucose [Mass/Vol] 123 mg/dL High 70-100 [facility] Comment on above: Result Comment: [place] Glucose Reference Range is dependent on time and content of last meal. Glucose of more than 200 mg/dL in a nonstressed, ambulatory subject supports the diagnosis of Diabetes Mellitus. ADA recommended reference range Performed By: #### B MP, CBC #### [address] Potassium [Moles/Vol] 5.7 mmol/L High 3.5-5.1 [facility] Comment on above: Performed By: #### B MP, CBC #### [place] [address] [place] Sodium [Moles/Vol] 143 mmol/L Normal 136-145 [facility] Comment on above: Performed By: #### B MP, CBC #### [address] Urea nitrogen [Mass/Vol] 46 mg/dL High 7-25 [facility] Comment on above: Performed By: #### B MP, CBC #### [address] [place] [address] [facility] Basic metabolic 1998 panelon 06-24-2024 Anion gap [Moles/Vol] 12.8 mmol/L 6.0 - 15.0 meq/L [facility] Calcium [Mass/Vol] 9.5 mg/dL 8.6 - 10. 3 mg/dL [facility] Chloride [Moles/Vol] 110 mmol/L High 98 - 10 7 mmol/L [facility] CO2 [Moles/Vol] 25.9 mmol/L 21.0 - 31.0 mmol/L [facility] Creatinine (U) [Mass/Vol] 1.23 mg/dL High 0.60 - 1.20 mg/dL [facility] GFR/1.73 sq M.predicted MDRD (S/P/Bld) [Vol rate/Area] 43.603 mL/min/{1.73_m2} mL/Min [facility] Glucose [Mass/Vol] 123 mg/dL High 70 - 100 mg/dL [facility] Comment on above: Random Glucose Refer ence Range is dependent on time and content of last meal. Glucose of more than 200 mg/dL in a nonstressed, ambulatory subject supports the diagnosis of Diabetes Mellitus. ADA recommended reference range Interpretation and review of laboratory results Abnormal [facility] Potassium [Moles/Vol] 5.7 mmol/L High 3.5 - 5.1 mmol/L [facility] Sodium [Moles/Vol] 143 mmol/L 136 - 145 mmol/L [facility] Urea nitrogen [Mass/Vol] 46 mg/dL High 7 - 25 mg/dL [facility] Basophils Auto (Bld) [#/Vol] Ordered By: Korey Valencia on 06-24-2024 Basophils (Bld) [#/Vol] Automated basoph il count 0.0-0.2 [facility] Basophils/100 WBC Auto (Bld) Ordered By: Korey Valencia on 06-24-2024 Basophils/100 WBC (Bld) Automated basophil % . [facility] CBC W Auto Differential pane l (Bld)on 06-24-2024 Basophils (Bld) [#/Vol] 0 10*3/uL 0.0 - 0.2 10*3/uL [facility] Basophils/100 WBC Manual cnt (Syn fld) 0.4 % . [facility] Eosinophils (Bld) [#/Vol] 0.2 10*3/uL 0.0 - 0.45 10*3/uL [facility] Eosinophils/100 WBC Manual cnt (Syn fld) 2.3 % . [facility] Erythrocyte distribution width (RBC) [Ratio] 13.3 % 11.9 - 15.3 % [facility] Hematocrit (Bld) [Volume fraction] 34.9 % 34.0 - 46.4 % [facility] Hemoglobin (Bld) [Mass/Vol] 11.9 g/dL 11.8 - 15.4 g/dL [facility] Lymphocytes (Bld) [#/Vol] 2.3 10*3/uL 1.00 - 4.8 10*3/uL [facility] Lymphocytes/100 WBC Manual cnt (Syn fld) 30.5 % . [facility] MCH (RBC) [Entitic mass] 31.1 pg 24.7 - 34.3 pg [facility] MCHC (RBC) [Mass/Vol] 34 g/dL 32.0 - 35.0 g/dL [facility] MCV (RBC) [Entitic vol] 91.4 fL 80 - 100 fL [facility] Monocytes (Bld) [#/Vol] 0.4 10*3/uL 0.0 - 0.8 10*3/uL [facility] Monocytes+Macrophages/1 00 WBC Manual cnt (Syn fld) 5.6 % . [facility] Neutrophils (Bld) [#/Vol] 4.5 10*3/uL 1.8 - 7.7 10*3/uL [facility] Neutrophils/100 WBC Manual cnt (Syn fld) 61.2 % . [facility] NRBC 0.1 /100{WBC} 0 - 0.5 /100{WBC} [facility] Platelet mean volume (Bld) [Entitic vol] 8.8 fL 6.3 - 10.7 fL [facility] Platelets (Bld) [#/Vol] 178 10*3/uL 150 - 450 10*3/uL [facility] RBC LM.HPF (Urine sed) [#/Area] 3.82 10*6/uL 3.60 - 5.00 10*6/uL [facility] WBC (Bld) [#/Vol] 7.4 10*3/uL 3.8 - 11.6 10*3/uL [facility] WBC LM.HPF (Urine sed) [#/Area] 7.4 10*3/uL 3.8 - 11.6 10*3/uL [facility] Healthcare [facility] Healthcare Calcium [Mass/volume] in Ser um or PlasmaOrdered By: Korey Valencia on 06-24-2024 Calcium [Mass/Vol] Calcium [Mass/volume ] in Serum or Plasma 8.6-10.3 [facility] Carbon dioxide, total [Moles /volume] in Serum or PlasmaOrdered By: Korey Valencia on 06-24-2024 CO2 [Moles/Vol] Carbon dioxide, tota l [Moles/volume] in Serum or Plasma 21.0-31.0 [facility] Chloride [Moles/volume] in S oswaldo or PlasmaOrdered By: Korey Valencia on 06-24-2024 Chloride [Moles/Vol] Chloride [Moles/volume] in Serum or Plasma High 98-107 [facility] Complete Blood Count Auto Di ffon 06-24-2024 Basophils (Bld) [#/Vol] 0.0 10*3/uL Normal 0.0-0.2 [facility] Comment on above: Result Comment: PERF ORMED BY: [place] [address] PATHOLOGIST PHARMACIST IN CHARGE MIGUELITO JAIMES M.D. Performed By: #### B MP, CBC #### [facility] [address] [place] [address] [place] Basophils/100 WBC (Bld) 0.4 % Normal . T angela [facility] Comment on above: Performed By: #### B MP, CBC #### [facility] [address] [place] [address] [place] Eosinophils (Bld) [#/Vol] 0.2 10*3/uL Normal 0.0-0.45 [facility] Comment on above: Performed By: #### B MP, CBC #### [facility] [address] [place] [address] [place] Eosinophils/100 WBC (Bld) 2.3 % Normal . [facility] Comment on above: Performed By: #### B MP, CBC #### [address] Erythrocyte distribution width (RBC) [Ratio] 13.3 % Normal 11.9-15.3 [facility] Comment on above: Performed By: #### B MP, CBC #### [address] Hematocrit (Bld) [Volume fraction] 34.9 % Normal 34.0-46.4 [facility] Comment on above: Performed By: #### B MP, CBC #### [address] Hemoglobin (Bld) [Mass/Vol] 11.9 g/dL Normal 11.8-15.4 [facility] Comment on above: Performed By: #### B MP, CBC #### [address] Lymphocytes (Bld) [#/Vol] 2.3 10*3/uL Normal 1.00-4.8 [facility] Comment on above: Performed By: #### B MP, CBC #### [place] [address] [place] Lymphocytes/100 WBC (Bld) 30.5 % Normal . [facility] Comment on above: Performed By: #### B MP, CBC #### [address] MCH (RBC) [Entitic mass] 31.1 pg Normal 24.7-34.3 [facility] Comment on above: Performed By: #### B MP, CBC #### [address] MCV (RBC) [Entitic vol] 91.4 fL Normal 80-100 [facility] Comment on above: Performed By: #### B MP, CBC #### [address] Mean Corpuscular HGB Conc 34.0 g/dL Normal 32.0-35.0 [facility] Comment on above: Performed By: #### B MP, CBC #### [facility] [address] [place] [address] [place] Monocytes (Bld) [#/Vol] 0.4 10*3/uL Normal 0.0-0.8 [facility] Comment on above: Performed By: #### B MP, CBC #### [facility] [address] [place] [id number] [place] Monocytes/100 WBC (Bld) 5.6 % Normal . T [facility] Comment on above: Performed By: #### B MP, CBC #### [facility] [address] [place] [address] [place] Neutrophils (Bld) [#/Vol] 4.5 10*3/uL Normal 1.8-7.7 [facility] Comment on above: Performed By: #### B MP, CBC #### [facility] [address] [place] [address] [place] Neutrophils/100 WBC (Bld) 61.2 % Normal . [facility] Comment on above: Performed By: #### B MP, CBC #### [facility] [address] [place] [address] [place] NRBC% 0.1 /100{WBC} Normal 0-0.5 [facility] Comment on above: Performed By: #### B MP, CBC #### [facility] [address] [place] [address] [place] Platelet mean volume (Bld) [Entitic vol] 8.8 fL Normal 6.3-10.7 [facility] Comment on above: Performed By: #### B MP, CBC #### [facility] [address] [place] [id number] [place] Platelets (Bld) [#/Vol] 178 10*3/uL Normal 150-450 [facility] Comment on above: Performed By: #### B MP, CBC #### [facility] [address] [place] [address] [place] RBC (Bld) [#/Vol] 3.82 10*6/uL Normal 3.60-5.00 [facility] Comment on above: Performed By: #### B MP, CBC #### [facility] [address] [place] [address] [place] WBC (Bld) [#/Vol] 7.4 10*3/uL Normal 3.8-11.6 [facility] Comment on above: Performed By: #### B MP, CBC #### [facility] [address] [place] [address] Creatinine [Mass/volume] in Serum or PlasmaOrdered By: Korey Valencia on 06-24-2024 Creatinine [Mass/Vol] Creatinine [Mass/volume] in Serum or Plasma High 0.60-1.20 [facility] ECG 12 lead ECGon 06-24-2024 ECG 12 lead ECG [facility] [place] [address] [place] [address] Electrocardiograph Report Signed Patient: Willie Espinosa MR#: [id number] 6 : 1940 Acct:[id number] Age/Sex: 84 / F ADM Date: 06/24/24 Loc: Room: Type: [facility] Attending Dr: Korey Valencia DO Ordering Provider: [...] Otherwise normal ECG Confirmed by Jaylene Betancourt ([id number]) on 06/24/2024 6:34:53 PM Referred By: Electronically Signed By: Jaylene Betancourt Transcribed By: MUS Signed By Jaylene Betancourt MD 5 1984 Normal [facility] Eosinophils Auto (Bld) [#/Vo l]Ordered By: Korey Valencia on 06-24-2024 Eosinophils (Bld) [#/Vol] Automated eosinophil count 0.0-0.45 [facility] Eosinophils/100 WBC Auto (Bl d)Ordered By: Korey Valencia on 06-24-2024 Eosinophils/100 WBC (Bld) Automated eosinophil % . [facility] Erythrocyte distribution wid th Auto (RBC) [Ratio]Ordered By: Korey Valencia on 06-24-2024 Erythrocyte distribution width (RBC) [Ratio] Erythrocyte distribution width [Ratio] by Automated count 11.9-15.3 [facility] Glucose [Mass/volume] in Ser um or PlasmaOrdered By: Korey Valencia on 06-24-2024 Glucose [Mass/Vol] Glucose [Mass/volume ] in Serum or Plasma High 70-100 [facility] Comment on above: ADA recommended refe rence rangeRandom Glucose Reference Range is dependent on time and content of last meal. Glucose of more than 200 mg/dL in a nonstressed, ambulatory subject supports the diagnosis of Diabetes Mellitus. Hematocrit Auto (Bld) [Volum e fraction]Ordered By: Korey Valencia on 06-24-2024 Hematocrit (Bld) [Volume fraction] Hematocrit [Volume Fraction] of Blood by Automated count 34.0-46.4 [facility] Hemoglobin [Mass/volume] in BloodOrdered By: Korey Valencia on 06-24-2024 Hemoglobin (Bld) [Mass/Vol] Hemoglobin [Mass/volume] in Blood 11.8-15.4 [facility] Leukocytes [#/volume] correc osmany for nucleated erythrocytes in Blood by Automated counOrdered By: Korey Valencia on 06-24-2024 WBC corrected for nucl RBC Auto (Bld) [#/Vol] Leukocytes [#/volume] corrected for nucleated erythrocytes in Blood by Automated coun 3.8-11.6 [facility] Lymphocytes Auto (Bld) [#/Vo l]Ordered By: Korey Valencia on 06-24-2024 Lymphocytes (Bld) [#/Vol] Lymphocytes [#/volume] in Blood by Automated count 1.00-4.8 [facility] Lymphocytes/100 WBC Auto (Bl d)Ordered By: Korey Valencia on 06-24-2024 Lymphocytes/100 WBC (Bld) Lymphocytes/100 leukocytes in Blood by Automated count . [facility] MCH Auto (RBC) [Entitic mass ]Ordered By: Korey Valencia on 06-24-2024 MCH (RBC) [Entitic mass] MCH [Entitic mass] by Automated count 24.7-34.3 [facility] MCHC Auto (RBC) [Mass/Vol]Or dered By: Korey Valencia on 06-24-2024 MCHC (RBC) [Mass/Vol] MCHC [Mass/volume] by Automated count 32.0-35.0 [facility] MCV Auto (RBC) [Entitic vol] Ordered By: Korey Valencia on 06-24-2024 MCV (RBC) [Entitic vol] MCV [Entitic vol ume] by Automated count 80-100 [facility] Monocytes Auto (Bld) [#/Vol] Ordered By: Korey Valencia on 06-24-2024 Monocytes (Bld) [#/Vol] Automated blood monocyte count 0.0-0.8 [facility] Monocytes/100 WBC Auto (Bld) Ordered By: Korey Valencia on 06-24-2024 Monocytes/100 WBC (Bld) Automated monocyte % . [facility] Neutrophils Auto (Bld) [#/Vo l]Ordered By: Korey Valencia on 06-24-2024 Neutrophils (Bld) [#/Vol] Neutrophils [#/volume] in Blood by Automated count 1.8-7.7 [facility] Neutrophils/100 WBC Auto (Bl d)Ordered By: Korey Valencia on 06-24-2024 Neutrophils/100 WBC (Bld) Automated neutrophil % . [facility] No Panel InformationOrdered By: Korey Valencia on 06-24-2024 Estimated GFR (CKD-EPI) 43.603 mL/Min [facility] Creatinine Clearance (Chem N/A [facility] Nucleated erythrocytes [Pres ence] in Blood by Automated countOrdered By: Korey Valencia on 06-24-2024 Nucleated RBC Auto Ql (Bld) Nucleated erythrocytes [Presence] in Blood by Automated count 0-0.5 [facility] Platelet mean volume Auto (B ld) [Entitic vol]Ordered By: Korey Valencia on 06-24-2024 Platelet mean volume (Bld) [Entitic vol] Platelet mean volume [Entitic volume] in Blood by Automated count 6.3-10.7 [facility] Platelets Auto (Bld) [#/Vol] Ordered By: Korey Valencia on 06-24-2024 Platelets (Bld) [#/Vol] Platelets [#/vol ume] in Blood by Automated count 150-450 [facility] Potassium [Moles/volume] in Serum or PlasmaOrdered By: Korey Valencia on 06-24-2024 Potassium [Moles/Vol] Potassium [Moles/volume] in Serum or Plasma High 3.5-5.1 [facility] RBC Auto (Bld) [#/Vol]Ordere d By: Korey Valencia on 06-24-2024 RBC (Bld) [#/Vol] Erythrocytes [#/volume] in Blood by Automated count 3.60-5.00 [facility] Serum or plasma anion gap de terminationOrdered By: Korey Valencia on 06-24-2024 Anion gap [Moles/Vol] Serum or plasma an ion gap determination 6.0-15.0 [facility] Sodium [Moles/volume] in Ser um or PlasmaOrdered By: Korey Valencia on 06-24-2024 Sodium [Moles/Vol] Sodium [Moles/volume ] in Serum or Plasma 136-145 [facility] Urea nitrogen [Mass/volume] in Serum or PlasmaOrdered By: Korey Valencia on 06-24-2024 Urea nitrogen [Mass/Vol] Urea nitrogen [Mass/volume] in Serum or Plasma High 7-25 [facility] WBC Auto (Bld) [#/Vol]Ordere d By: Korey Valencia on 06-24-2024 WBC (Bld) [#/Vol] Leukocytes [#/volume ] in Blood by Automated count 3.8-11.6 [facility] No Panel Informationon 06-20 Consent obtained: written (The rationale for Mohs as well as the risks, benefits, and alternatives. The risks of infection, scarring, bleeding, prolonged wound healing, incomplete removal, allergy to anesthesia or meds, nerve injury, and recurrence were addressed.) [place] Protocol: Procedure explained and questions answered to [...] sodium bicarbonate Procedure Details: Biopsy accession number: [id number] Biopsy lab: Must See [place] Date of biopsy: 02/29/2024 Frozen section biopsy [...] defect reconstructed? Yes (more content not included)... [facility] Laboratory - Hematology and Cell countson 05-16-2024 HbA1c (Bld) [Mass fraction] 7.7 % [facility] No Panel Informationon 05-16 Interpretation and review of laboratory results Abnormal [facility] No Panel Informationon 02-28 [facility] Type of biopsy: tangential Informed consent: discussed [...] taken Amount of lidocaine used: 0.5 cc [facility] - Hematology and Cell countson 02-06-2024 HbA1c (Bld) [Mass fraction] 7.6 % [facility] No Panel Informationon 02-05 Interpretation and review of laboratory results Abnormal [facility] XR Abdomen 2 Viewson 023 XR Abdomen [...] by Hilton Talbot on 08/22/2022 1642 Normal [facility] Specialist NM STRESS/REST MULTIon 03-02 NM STRESS/REST MULTI Patient: SHON ESPINOSA Exam Date: 03/02/2022 : 1940 Gender:F Ordering : DR BAUTISTA THAYER M.D. Admission #: [id number] Family : Order #: [id number] CLICK HERE TO VIEW EXAM RADIOLOGY REPORT [...] Trujillo MD on 03/02/2022 at 13:16 Normal [facility] Vital Signs Date Time Vital Sign Value Performing Clinician Gutierrez ballard 12-19-2024 13:33-0400 Body height 144.8 cm Nagi Murry MD Work Phone: [facility] 12-19-2024 13:33-0400 Body mass index (BMI) [Ratio] 40.73 kg/m2 Nagi Murry MD Work Phone: [facility] 12-19-2024 13:33-0400 Body weight 85.37 kg Nagi Murry MD Work Phone: [facility] 12-19-2024 13:33-0400 Diastolic blood pressure 84 mm[Hg] Nagi Murry MD Work Phone: [facility] 12-19-2024 13:33-0400 Heart rate 78 /min Nagi Murry MD Work Phone: [facility] 12-19-2024 13:33-0400 Systolic blood pressure 138 mm[Hg] Nagi Murry MD Work Phone: [facility] 11-21-2024 11:02-0400 Diastolic blood pressure 60 mm[Hg] Nagi Murry MD Work Phone: [facility] 11-21-2024 11:02-0400 Systolic blood pressure 120 mm[Hg] Nagi Murry MD Work Phone: [facility] 11-21-2024 10:51-0400 Body height 144.8 cm Nagi Murry MD Work Phone: [facility] 11-21-2024 10:51-0400 Body mass index (BMI) [Ratio] 39.38 kg/m2 Nagi Murry MD Work Phone: [facility] 11-21-2024 10:51-0400 Body weight 82.56 kg Nagi Murry MD Work Phone: [facility] 11-21-2024 10:51-0400 Heart rate 70 /min Nagi Murry MD Work Phone: [facility] 11-11-2024 11:19-0400 Body height 149.9 cm Bautista Thayer MD Work Phone: [facility] 11-11-2024 11:19-0400 Body mass index (BMI) [Ratio] 35.95 kg/m2 Bautista Thayer MD Work Phone: [facility] 11-11-2024 11:19-0400 Body weight 80.74 kg Bautista Thayer MD Work Phone: [facility] 11-11-2024 11:19-0400 Diastolic blood pressure 78 mm[Hg] Bautista Thayer MD Work Phone: [facility] 11-11-2024 11:19-0400 Heart rate 66 /min Bautista Thayer MD Work Phone: [facility] 11-11-2024 11:19-0400 SaO2% (BldA) [Mass fraction] 95 % Bautista Thayer MD Work Phone: [facility] 11-11-2024 11:19-0400 Systolic blood pressure 138 mm[Hg] Bautista Thayer MD Work Phone: [facility] 08-12-2024 10:45-0400 Body height 149.9 cm Bautista Thayer MD Work Phone: [facility] 08-12-2024 10:45-0400 Body mass index (BMI) [Ratio] 36.96 kg/m2 Bautista Thayer MD Work Phone: [facility] 08-12-2024 10:45-0400 Body weight 83.01 kg Bautista Thayer MD Work Phone: [facility] 08-12-2024 10:45-0400 Diastolic blood pressure 68 mm[Hg] Bautista Thayer MD Work Phone: [facility] 08-12-2024 10:45-0400 Heart rate 63 /min Bautista Thayer MD Work Phone: [facility] 08-12-2024 10:45-0400 SaO2% (BldA) [Mass fraction] 98 % Bautista Thayer MD Work Phone: [facility] 08-12-2024 10:45-0400 Systolic blood pressure 130 mm[Hg] Batuista Thayer MD Work Phone: [facility] 08-02-2024 14:53-0400 Body height 149.9 cm Korey Valencia DO Work Phone: [facility] 08-02-2024 14:53-0400 Body mass index (BMI) [Ratio] 35.35 kg/m2 Korey Valencia DO Work Phone: [facility] 08-02-2024 14:53-0400 Body weight 79.38 kg Korey Valencia DO Work Phone: [facility] 07-03-2024 14:20-0400 Body height 149.9 cm Eriberto Hdez DO Work Phone: [facility] 07-03-2024 14:20-0400 Body mass index (BMI) [Ratio] 35.55 kg/m2 Eriberto Hdez DO Work Phone: [facility] 07-03-2024 14:20-0400 Body weight 79.83 kg Eriberto Hdez DO Work Phone: [facility] 06-27-2024 19:11-0500 Diastolic blood pressure 57 mm[Hg] Bautista Thayer MD Work Phone: [facility] 06-27-2024 19:11-0500 Heart rate 65 /min Bautista Thayer MD Work Phone: [facility] 06-27-2024 19:11-0500 Respiratory rate 16 /min Bautista Thayer MD Work Phone: [facility] 06-27-2024 19:11-0500 SaO2% (BldA) [Mass fraction] 97 % Bautista Thayer MD Work Phone: [facility] 06-27-2024 19:11-0500 Systolic blood pressure 125 mm[Hg] Bautista Thayer MD Work Phone: [facility] 06-27-2024 18:11-0500 Body temperature 97.4 [degF] Bautista Thayer MD Work Phone: [facility] 06-27-2024 15:00-0500 Body height 147.32 cm Bautista Thayer MD Work Phone: [facility] 06-27-2024 15:00-0500 Body weight 82 kg Bautista Thayer MD Work Phone: [facility] 06-21-2024 10:14-0500 Body height 149.9 cm Korey Valencia DO Work Phone: [facility] 06-21-2024 10:14-0500 Body mass index (BMI) [Ratio] 35.75 kg/m2 Korey Clarosliamglenntino DO Work Phone: [facility] 06-21-2024 10:14-0500 Body weight 80.29 kg Korey Anthonytino DO Work Phone: [facility] 06-20-2024 15:11-0500 Diastolic blood pressure 82 mm[Hg] Vernell Llamas MD Work Phone: [facility] 06-20-2024 15:11-0500 Systolic blood pressure 142 mm[Hg] Vernell Llamas MD Work Phone: [facility] 05-16-2024 13:50-0500 Body height 149.9 cm Bautista Thayer MD Work Phone: [facility] 05-16-2024 13:50-0500 Body mass index (BMI) [Ratio] 35.75 kg/m2 Bautista Thayer MD Work Phone: [facility] 05-16-2024 13:50-0500 Body weight 80.29 kg Bautista Thayer MD Work Phone: [facility] 05-16-2024 13:50-0500 Diastolic blood pressure 78 mm[Hg] Bautista Thayer MD Work Phone: [facility] 05-16-2024 13:50-0500 Heart rate 72 /min Bautista Thayer MD Work Phone: [facility] 05-16-2024 13:50-0500 SaO2% (BldA) [Mass fraction] 97 % Bautista Thayer MD Work Phone: [facility] 05-16-2024 13:50-0500 Systolic blood pressure 128 mm[Hg] Bautista Thayer MD Work Phone: [facility] 04-09-2024 16:00-0500 Body height 149.9 cm Bautista Thayer MD Work Phone: [facility] 04-09-2024 16:00-0500 Body mass index (BMI) [Ratio] 35.75 kg/m2 Bautista Thayer MD Work Phone: [facility] 04-09-2024 16:00-0500 Body weight 80.29 kg Bautista Thayer MD Work Phone: [facility] 04-09-2024 16:00-0500 Diastolic blood pressure 68 mm[Hg] Bautista Thayer MD Work Phone: [facility] 04-09-2024 16:00-0500 Heart rate 78 /min Bautista Thayer MD Work Phone: [facility] [facility] 04-09-2024 16:00-0500 SaO2% (BldA) [Mass fraction] 96 % Bautista Thayer MD Work Phone: [facility] 04-09-2024 16:00-0500 Systolic blood pressure 124 mm[Hg] Bautista Thayer MD Work Phone: [facility] 02-06-2024 10:56-0400 Body height 149.9 cm Bautista Thayer MD Work Phone: [facility] 02-06-2024 10:56-0400 Body mass index (BMI) [Ratio] 34.74 kg/m2 Bautista Thayer MD Work Phone: [facility] 02-06-2024 10:56-0400 Body weight 78.02 kg Bautista Thayer MD Work Phone: [facility] 02-06-2024 10:56-0400 Diastolic blood pressure 64 mm[Hg] Bautista Thayer MD Work Phone: [facility] 02-06-2024 10:56-0400 Heart rate 65 /min Bautista Thayer MD Work Phone: [facility] 02-06-2024 10:56-0400 SaO2% (BldA) [Mass fraction] 96 % Bautista Thayer MD Work Phone: [facility] 02-06-2024 10:56-0400 Systolic blood pressure 112 mm[Hg] Bautista Thayer MD Work Phone: [facility] 06-08-2023 11:20-0500 Body mass index (BMI) [Ratio] 36.07 kg/m2 Delores Hemmer PA Work Phone: [facility] 06-08-2023 11:20-0500 Body weight 78.29 kg Delores Hemmer PA Work Phone: [facility] [employer] 06-08-2023 11:20-0500 Diastolic blood pressure 72 mm[Hg] Delores Hemmer PA Work Phone: [facility] 06-08-2023 11:20-0500 Heart rate 64 /min Delores Hemmer PA Work Phone: [facility] 06-08-2023 11:20-0500 Respiratory rate 18 /min Delores Hemmer PA Work Phone: [facility] 06-08-2023 11:20-0500 SaO2% (BldA) [Mass fraction] 97 % Delores Hemmer PA Work Phone: [facility] 06-08-2023 11:20-0500 Systolic blood pressure 132 mm[Hg] Delores Hemmer PA Work Phone: [facility] Healthcare Encounters Encounter Date Encounter Type Care Provider Facility Start: 12-19-2024 End: 12-19-2024 Office outpatient visit 25 minutes Nagi Murry MD Work Phone: [facility] Comment on above: Other chest pain; Essential (primary) hypertension; Murmur, [...] of fall; Encounter to discuss test results Start: 12-19-2024 End: 12-19-2024 ambulatory [facility] Start: 12-05-2024 End: 12-05-2024 Office outpatient visit 10 minutes Mukesh Fernandez MD Work Phone: [facility] Comment on above: Seborrheic keratosis (Primary Dx); History of basal cell carcinoma; Seborrheic keratosis, inflamed; Actinic keratosis; Milia Start: 12-05-2024 End: 12-05-2024 ambulatory MUKESH FERNANDEZ Not Available Start: 12-05-2024 End: 12-05-2024 Sarah Fernandez MD Work Phone: [facility] Start: 12-05-2024 End: 12-05-2024 Bamgilles Fernandez MD Work Phone: [facility] Start: 11-26-2024 End: 11-26-2024 Clinisync Result Encounter Generic External Data Provider [facility] External Department Unsolicited Start: 11-26-2024 End: 11-26-2024 Clinisync Result Encounter Generic External Data Provider [facility] External Department Unsolicited Start: 11-25-2024 End: 11-25-2024 ambulatory [facility] Start: 11-21-2024 End: 11-21-2024 ambulatory [facility] Start: 11-21-2024 End: 11-21-2024 Office outpatient new 60 minutes Nagi Murry MD Work Phone: [facility] Comment on above: Encounter to [facility]; Other chest pain; Near syncope; Dizziness and [...] asthma, unspecified asthma severity, unspecified whether persistent ([facility]); Never smoked tobacco; Obesity (BMI 30-39.9); History of fall Start: 11-11-2024 End: 11-11-2024 ambulatory BAUTISTA Conrad JEOVANY Not Available Start: 11-11-2024 End: 11-11-2024 Office outpatient visit 25 minutes Bautista Thayer MD Work Phone: [facility] Comment on above: Other chest pain (Pr imary Dx); Asthma, unspecified asthma severity, unspecified whether complicated, unspecified whether persistent (HCC); Uncontrolled type 2 diabetes mellitus with hypoglycemia, unspecified hypoglycemia coma status (HCC) Start: 10-18-2024 End: 10-18-2024 Refill Bautista Thayer MD Work Phone: [facility] Comment on above: Essential hypertensi on Start: 09-05-2024 End: 09-05-2024 Refill Bautista Thayer MD Work Phone: [facility] Comment on above: Uncontrolled type 2 diabetes mellitus with hypoglycemia, unspecified hypoglycemia coma status (CMS/HCC) Start: 08-12-2024 End: 08-12-2024 ambulatory BAUTISTA THAYER Not Available Start: 08-12-2024 End: 08-12-2024 Office [...] hypothyroidism (CMS/HCC) Start: 08-02-2024 End: 08-02-2024 ambulatory KOREY VALENCIA Not Available Start: 08-02-2024 End: 08-02-2024 Postop follow up visit related to original px Korey Valencia DO Work Phone: [facility] [place] Comment on above: Mohs defect of nose (Primary Dx); Basal cell carcinoma (BCC) of skin of nose Start: 08-02-2024 End: 08-02-2024 Bamboo flowsheet Korey Valencia DO Work Phone: [facility] [place] Start: 08-02-2024 End: 08-02-2024 Bamboo flowsheet Korey Valencia DO Work Phone: [facility] [place] Start: 07-03-2024 End: 07-03-2024 ambulatory ERIBERTO HDEZ Not Available Start: 07-03-2024 End: 07-03-2024 Postop follow up visit related to original px Eriberto Hdez DO Work Phone: [facility] [place] Comment on above: Mohs defect of nose (Primary Dx) Start: 06-27-2024 End: 06-27-2024 Admission to same day surgery center Bautista Thayer MD Work Phone: [facility] [place] Start: 06-27-2024 End: 06-27-2024 ambulatory Bautista Thayer MD Work Phone: [facility] Work Phone: Start: 06-24-2024 End: 06-24-2024 External Result Encounter Korey Valencia DO Work Phone: [facility] Unsolicited Start: 06-24-2024 End: 06-24-2024 External Result Encounter Korey Valencia DO Work Phone: [facility] Unsolicited Start: 06-24-2024 End: 06-24-2024 Patient encounter procedure Bautista Thayer MD Work Phone: [facility] Work Phone: Start: 06-24-2024 End: 06-24-2024 ambulatory Bautista Thayer MD Work Phone: [facility] Work Phone: Start: 06-24-2024 Encounter for preprocedural laboratory examination Korey Valencia [facility] Start: 06-21-2024 End: 06-21-2024 Office [...] Dx) Start: 04-09-2024 End: 04-09-2024 ambulatory BAUTISTA THAYER Not Available Start: 04-04-2024 End: 04-05-2024 Refill Bautista Thayer MD Work Phone: [facility] Comment on above: Uncontrolled type 2 diabetes mellitus with hypoglycemia, unspecified hypoglycemia coma status ([facility]) Start: 02-29-2024 End: 02-29-2024 Bamboo flowsheet Mukesh Fernandez MD Work Phone: [facility] Start: 02-29-2024 End: 02-29-2024 Bamboo flowsheet Mukesh Fernandez MD Work Phone: [facility] Start: 02-29-2024 End: 02-29-2024 Office outpatient visit 25 minutes Mukesh Fernandez MD Work Phone: [facility] Comment on above: Psoriasis vulgaris ( [facility]) (Primary Dx); Seborrheic keratosis; Actinic keratosis; Seborrheic [...] necessary.) Start: 02-06-2024 End: 02-06-2024 ambulatory BAUTISTA THAYER Not Available Start: 02-06-2024 End: 02-06-2024 Office outpatient visit 25 minutes Bautista Thayer MD Work Phone: [facility] Comment on above: Fall in home, initia l encounter (Primary Dx); Uncontrolled type 2 diabetes mellitus with hypoglycemia, unspecified hypoglycemia coma status ([facility]); Encounter for vaccination; History of COVID-19; 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, unspecified laterality (CMS/HCC) Start: 08-08-2023 Patient encounter procedure Bautista Thayer MD Work Phone: [facility] Start: 06-08-2023 Bamboo flowsheet Delores Han r PA Work Phone: [facility] Start: 06-08-2023 Bamboo flowsheet Delores Han r PA Work Phone: [facility] Start: 06-08-2023 End: 06-08-2023 Office outpatient visit 25 minutes Delores ALMANZA Work Phone: [facility] Comment on above: Type 2 diabetes mary itus with retinopathy without macular edema, with long-term current use of insulin, unspecified laterality, unspecified retinopathy severity ([facility]) (Primary Dx); Diabetic autonomic neuropathy associated with type 2 diabetes mellitus ([facility]); Left foot pain; Acute left ankle pain; Acute diffuse otitis externa of both ears Start: 06-07-2023 Chart abstracting Delores castelan PA Work Phone: [facility] Start: 03-02-2022 End: 03-03-[address] BAUTISTA THAYER Facility: Procedures Date Procedure Procedure Detail Performing Clinician Start: 12-05-2024 End: 12-05-2024 CRYOTHERAPY SKIN LESION Mukesh Fernandez MD Work Phone: Start: 11-26-2024 ALL CBC WITH AUTO DIFF Generic External Data Provider Start: 11-21-2024 Ecg routine ecg w/le ast [...] screening for protein Diabetes: Urine Protein Screening [facility] Start: 06-05-2025 End: 06-05-2025 Patient encounter procedure 06/05/2025 1:50 PM EST Office Visit [facility] [address] [place] [address] Mukesh Fernandez MD [address] [place] [address] [facility] Start: 02-11-2025 Hemoglobin A1c measurement Diabetes: Hemoglobin A1C [facility] Start: 02-10-2025 End: 02-10-2025 Patient encounter procedure 02/10/2025 10:30 AM EDT Office Visit [facility] [place] [facility] [address] [place] [phone] Bautista Thayer MD [address] [place] [address] TRACY Goff [facility] Start: 01-17-2025 Glaucoma screening Diabetes: Retinopathy Screening [facility] Start: 01-02-2025 End: 01-02-2025 Patient encounter procedure 01/02/2025 1:15 PM EDT Office Visit [address] [place] [address] Nagi Murry MD [address] [facility] [address] [place] [address] [facility] Start: 12-23-2024 Influenza vaccination Influenza Vaccine (#1) [facility] Start: 12-19-2024 End: 12-19-2025 CBC panel - Blood by Automated count CBC Lab Routine Diastolic dysfunction Acute diastolic heart failure Expected: 12/19/2024, Expires: 12/19/2025 [facility] Work Phone: Comment on above: Expected: 12/19/2024, Expires: Start: 12-19-2024 End: 12-19-2025 Comprehensive metabolic 2000 panel - Serum or Plasma Comprehensive Metabolic Panel Lab Routine Diastolic dysfunction Acute diastolic heart failure Expected: 12/19/2024, Expires: 12/19/2025 [facility] Work Phone: Comment on above: Expected: 12/19/2024, Expires: Start: 12-19-2024 End: 12-19-2025 Magnesium [Mass/volume] in Serum or Plasma Magnesium Lab Routine Diastolic dysfunction Acute diastolic heart failure Expected: 12/19/2024, Expires: 12/19/2025 [facility] Work Phone: Comment on above: Expected: 12/19/2024, Expires: Start: 12-19-2024 End: 12-19-2024 Patient encounter procedure 12/19/2024 1:30 PM EDT Office Visit [address] [place] [address] Nagi Murry MD [address] [facility] [address] [place] [address] [facility] Start: 12-05-2024 End: 12-05-2024 Patient encounter procedure [facility] Comment on above: Arrived Start: 11-28-2024 End: 11-28-2024 Patient encounter procedure 11/28/2024 1:20 PM EDT Office Visit [facility] [address] [place] [address] Mukesh Fernandez MD [address] [place] [address] [facility] Start: 11-25-2024 End: 11-25-2024 Professional / ancillary services management 11/25/2024 10:00 AM EDT Ancillary Procedure [facility] [address] [facility] [address] [place] [phone] [facility] Start: 11-21-2024 End: 11-21-2025 CBC panel - Blood by Automated count CBC Lab Routine Essential (primary) hypertension Type 2 diabetes mellitus with stage 3 chronic kidney disease, with long-term current use of insulin, unspecified whether stage 3a or 3b CKD (Multi) Expected: 11/21/2024, Expires: 11/21/2025 [facility] Work Phone: Comment on above: Expected: 11/21/2024, Expires: Start: 11-21-2024 End: 11-21-2025 Comprehensive metabolic 2000 panel - Serum or Plasma Comprehensive Metabolic Panel Lab Routine Essential (primary) hypertension Type 2 diabetes mellitus with stage 3 chronic kidney disease, with long-term current use of insulin, unspecified whether stage 3a or 3b CKD (Multi) Expected: 11/21/2024, Expires: 11/21/2025 [facility] Work Phone: Comment on above: Expected: 11/21/2024, Expires: Start: 11-21-2024 End: 11-21-2026 Holter monitor study Holter Or Event [facility] Routine Near syncope Dizziness and giddiness Expected: 11/21/2024 (Approximate), Expires: 11/21/2026 [facility] Service Area Work Phone: Comment on above: Expected: 11/21/2024 (Approximate), Expi res: 11/21/2026 Start: 11-21-2024 End: 11-21-2025 Lipid 1996 panel - Serum or Plasma Lipid Panel Lab Routine Essential (primary) hypertension Type 2 diabetes mellitus with stage 3 chronic kidney disease, with long-term current use of insulin, unspecified whether stage 3a or 3b CKD (Multi) Expected: 11/21/2024, Expires: 11/21/2025 [facility] Work Phone: Comment on above: Expected: 11/21/2024, Expires: Start: 11-21-2024 End: 11-21-2025 Magnesium [Mass/volume] in Serum or Plasma Magnesium Lab Routine Dizziness and giddiness Essential (primary) hypertension Type 2 diabetes mellitus with stage 3 chronic kidney disease, with long-term current use of insulin, unspecified whether stage 3a or 3b CKD (Multi) Chronic fatigue Hypothyroidism, unspecified type Expected: 11/21/2024, Expires: 11/21/2025 [facility] Work Phone: Comment on above: Expected: 11/21/2024, Expires: Start: 11-21-2024 End: 11-21-2025 Thyrotropin [Units/volume] in Serum or Plasma Thyroid Stimulating Hormone Lab Routine Dizziness and giddiness Essential (primary) hypertension Type 2 diabetes mellitus with stage 3 chronic kidney disease, with long-term current use of insulin, unspecified whether stage 3a or 3b CKD (Multi) Chronic fatigue Hypothyroidism, unspecified type Expected: 11/21/2024, Expires: 11/21/2025 [facility] Work Phone: Comment on above: Expected: 11/21/2024, Expires: Start: 11-11-2024 Hemoglobin A1c measurement Diabetes: Hemoglobin A1C [facility] Start: 11-11-2024 End: 11-11-2024 Patient encounter procedure 11/11/2024 11:00 AM EDT Office Visit [facility] [address] [facility] [address] [place] [address] Bautista Thayer MD [address] [facility] [address] [place] [address] [facility] Start: 08-14-2024 Hemoglobin A1c measurement Diabetes: Hemoglobin A1C [facility] Start: 08-12-2024 End: 08-12-2025 Microalbumin/Creatinine panel in random Urine Microalbumin / creatinine urine ratio Lab Routine Uncontrolled type 2 diabetes mellitus with hypoglycemia, unspecified hypoglycemia coma status ([facility]) Expected: 08/12/2024 (Approximate), Expires: 08/12/2025 [facility] Work Phone: Comment on above: Expected: 08/12/2024 (Approximate), Expi res: 08/12/2025 Start: 08-12-2024 End: 08-12-2025 TSH W/REFLEX TO FT4 TSH W/REFLEX TO FT4 Lab Routine Acquired hypothyroidism ([facility]) Expected: 08/12/2024 (Approximate), Expires: 08/12/2025 [facility] Comment on above: Expected: 08/12/2024 (Approximate), Expi res: 08/12/2025 Start: 08-12-2024 End: 08-12-2024 Patient encounter procedure 08/12/2024 10:30 AM EDT Office Visit [facility] [address] [facility] [address] [place] [address] Bautista Thayer MD [address] [facility] [address] [place] [address] [facility] Start: 08-08-2024 Urine screening for protein Diabetes: Urine Protein Screening [facility] Start: 08-07-2024 Medicare Annual Wellness (AWV) Medicare Annual Wellness (AWV) [facility] Start: 08-02-2024 End: 08-02-2024 Patient encounter procedure 08/02/2024 2:45 PM EDT Office Visit [facility] [place] [address] [place] [address] Korey Valencia, DO [address] [place] [address] [facility] [place] Start: 07-23-2024 Urine screening for protein Diabetes: Urine Protein [facility]ening [facility] Start: 07-03-2024 End: 07-03-2024 Patient encounter procedure 07/03/2024 2:15 PM EDT Office Visit [facility] [place] [address] [place] [address] Eriberto Hdez, DO [address] [place] [address] [facility] Start: 06-27-2024 [facility] Start: 06-27-2024 [facility] Start: 06-21-2024 End: 06-21-2024 Patient encounter procedure 06/21/2024 10:15 AM EST Office Visit [facility] [place] [address] [place] [address] Korey Valencia, DO [address] [place] [address] [facility] Start: 06-20-2024 End: 06-20-2024 Patient encounter procedure 06/20/2024 1:30 PM EST Office Visit [facility] [address] [place] [address] Vernell Llamas MD [address] [place] [address] [facility] Start: 05-15-2024 End: 05-15-2024 Patient encounter procedure 05/15/2024 9:15 AM EST Office Visit [facility] [address] [place] [address] Vernell Llamas MD [address] [place] [address] [facility] Start: 05-08-2024 Hemoglobin A1c measurement Diabetes: Hemoglobin A1C [facility] Start: 05-07-2024 End: 05-07-2024 Patient encounter procedure 05/07/2024 10:30 AM EST Office Visit [facility] [address] [place] [address] Bautista Thayer MD [address] [place] [address] [facility] Start: 02-29-2024 End: 02-29-2024 Patient encounter procedure 02/29/2024 11:15 AM EST Office Visit [facility] [address] [place] [address] Mukesh Fernandez MD [address] [facility] [address] [place] [address] Arrived [facility] Comment on above: Arrived Start: 12-24-2023 COVID-19 Vaccine ( season) COVID-19 Vaccine ( season) [facility] Start: 08-09-2023 Medicare Annual Wellness (AWV) Medicare Annual Wellness (AWV) [facility] Start: 07-25-2023 Hemoglobin A1c measurement Diabetes: Hemoglobin A1C [facility] Start: 06-26-2023 End: 06-26-2023 Patient encounter procedure 06/26/2023 11:00 AM EST Office Visit [facility] [address] [place] [address] Bautista Thayer MD [address] [place] [address] [facility] Start: 06-08-2023 End: 06-08-2024 XR Ankle - left 3 Views XR ankle 3+ views left Imaging Routine Acute left ankle pain Expected: 06/08/2023, Expires: 06/08/2024 [facility] Comment on above: Expected: 06/08/2023, Expires: 5 Start: 06-08-2023 End: 06-08-2024 XR Foot - left 3 Views XR foot 3+ views left Imaging Routine Left foot pain Expected: 06/08/2023, Expires: 06/08/2024 [facility] Work Phone: Comment on above: Expected: 06/08/2023, Expires: 5 Start: 06-08-2023 End: 06-08-2023 Patient encounter procedure 06/08/2023 11:00 AM EST Office Visit [facility] [address] [facility] [address] [place] [phone] Delores Carrero PA [address] [facility] [address] [place], [place] [id number] [facility] Start: 11-12-2022 Glaucoma screening Diabetes: Retinopathy Screening [facility] Start: 02-16-2016 RSV High Risk: (Elderly (60+) or Population) (1 - 1-dose 75+ series) RSV High Risk: (Elderly (60+) or Population) (1 - 1-dose 75+ series) [facility] Start: 2006 Screening for osteoporosis Bone Density Scan [facility] Start: 1991 Zoster Vaccines (1 of 2) Zoster Vaccines (1 of 2) [facility] Start: 1963 DTaP/Tdap/Td Vaccines (1 - Tdap) DTaP/Tdap/Td Vaccines (1 - Tdap) [facility] Start: 1951 Glaucoma screening Diabetes: Retinopathy Screening [facility] Start: 1941 Annual wellness visit Welcome to Medicare Visit [facility] Start: 1941 Creatinine measurement Creatinine Level [facility] Start: 1941 Echocardiography Echocardiogram [facility] Start: 1941 Hemoglobin A1c measurement Diabetes: Hemoglobin A1C [facility] Start: 1941 Lipid panel Lipid Panel [facility] Start: 1941 Potassium measurement Potassium Level [facility] Start: 1941 Thyroid stimulating hormone measurement TSH Level [facility] Dermatopathology exam Dermatopat hology exam Pathology and Cytology Timed Neoplasm of unspecified behavior of bone, soft tissue, and skin Release Upon Ordering for 1 Occurrences starting 02/29/2024 [facility] Work Phone: Comment on above: Release Upon Ordering for 1 Occurrences starting 02/29/2024 Patient Education Know your Meds [facility] Work Phone: Patient referral [facility] Work Phone: Immunizations Immunization Date Immunization Notes Care Provider Fa [facility] 02-06-2024 Influenza, High-dose Seasonal, Quadrivalent, Preservative Free Bautista Thayer MD Work Phone: [facility] 02-06-2024 influenza virus vacc ine, unspecified formulation Bautista Thayer MD Work Phone: [facility] 01-24-2023 Influenza, High-dose Seasonal, Quadrivalent, Preservative Free Delores Hemmer PA Work Phone: [facility] 02-14-2022 Influenza, High-dose Seasonal, Quadrivalent, Preservative Free Delores Hemmer PA Work Phone: [facility] 02-12-2021 influenza, high dose seasonal, preservative-free Delores Hemmer PA Work Phone: [facility] 02-24-2020 influenza, high dose seasonal, preservative-free Delores Hemmer PA Work Phone: [facility] 02-24-2020 Influenza, High-dose Seasonal, Quadrivalent, Preservative Free Delores Hemmer PA Work Phone: [facility] 02-21-2018 influenza, injectabl e, quadrivalent, contains preservative Delores Hemmer PA Work Phone: [facility] 03-30-2017 Influenza, injectabl e, Madin Vani Canine Kidney, preservative free, quadrivalent Delores Hemmer PA Work Phone: [facility] 03-05-2015 pneumococcal conjuga te vaccine, 13 valent Delores ALMANZA Work Phone: [facility] 01-30-2014 diphtheria, tetanus toxoids and acellular pertussis vaccine Delores ALMANZA Work Phone: [facility] 01-30-2014 influenza, seasonal, injectable Delores ALMANZA Work Phone: [facility] 03-08-2011 pneumococcal polysaccharide vaccine, 23 valent Delores ALMANZA Work Phone: [facility] Payers Date Payer Category Payer Self-pay 2024 Unknown [id number] 2022 Unknown [employer] [facility] [place] [id number] 2022-Present [address] [place] [address] [id number] 2020 Medicare (Managed Care) 1.2. [id number] 2020 Unknown [id number] 1941 Unknown [id number] 1941 Unknown [id number] 1941 Unknown [id number] 1941 Unknown [id number] 1941 Unknown [id number] 1941 Unknown [id number] .1259 1940 Unknown [id number] [id number] .1259 1940 Unknown [id number] 2.16.840.1.078862.3.579.2 .1259 1940 Unknown [id number] 2.16.840.1.675779.3.579.2 .1259 1940 Unknown [id number] 2.16.840.1.589084.3.579.2 .1259 1940 Unknown [id number] 2.16.840.1.153237.3.579.2 .1259 1940 Unknown [id number] 2.16.840.1.073227.3.579.2 .1259 1940 Unknown [id number] 2.16.840.1.667691.3.579.2 .1244 1940 Unknown [id number] 2.16.840.1.514679.3.579.2 .1244 1940 Unknown [id number] 2.16.840.1.727903.3.579.2 .1244 Private Health Insurance [employer] MCR PFFS [id number] Unknown [place] MCR PFFS OP [id number] Unknown [id number] .531 Unknown [id number] .531 Social History Date Type Detail Facility Start: 11-01-2022 End: 11-21-2024 Tobacco smoking status NHIS Never smoked tobacco [facility] Work Phone: Start: 11-01-2022 End: 11-21-2024 Tobacco use and exposure Smokeless tobacco non-user [facility] Start: 04-25-2023 End: 12-05-2024 Alcohol intake Lifetime non-drinker (finding) [facility] Start: 11-01-2022 End: 12-19-2024 History of Social function [facility] Start: 11-01-2022 End: 12-19-2024 Humiliation, Afraid, Rape, and Kick questionnaire [HARK] [facility] Within the last year , have you been afraid of your partner or ex-partner? No [facility] Do you belong to any clubs or organizations such as orthodox groups, unions, fraGumroad or athletic groups, or school groups? Yes [...] At Not on file [facility] Start: 06-25-2024 End: 06-27-2024 Sex Female (finding) [facility] Start: 1940 Sex Assigned At Female F [facility] Start: 12-19-2024 Alcoholic beverage intake Ex-drinker (finding) [facility] Work Phone: Medical Equipment Procedure Code Equipment Code Equipment Origin al Text Equipment Identifier Dates USE DIRECTED DAILY Start: 11-01-2022 End: 06-08-2023 use to test BLOO D SUGAR THREE TIMES DAILY Start: 12-16-2022 Inject 1 each un ninoska the skin in the morning and 1 each in the evening and 1 each before bedtime. USE DIRECTED DAILY. [id number] Start: 06-08-2023 Inject 1 each un ninoska the skin in the morning and 1 each in the evening and 1 each before bedtime. USE DIRECTED DAILY. [id number] Start: 09-05-2024 End: 09-05-2025 Goals Date Patient Goal Desired Activity /State Functional Status Date Assessment Result Facility 11-11-2024 Patient Health Quest ionnaire 2 item (PHQ-2) [Reported] [facility] 08-12-2024 Patient Health Quest ionnaire 2 item (PHQ-2) [Reported] [facility] Clinical Notes 06-08-2023 to 12-19-2024 Nagi Murry MD - 12/19/2024 1:30 PM EDTPatient InstructionsAttachmentsEmashish Fernandez MD - 12/05/2024 3:30 PM EDTScoheidi Murry MD - 11/21/2024 10:30 AM EDTPatient Instructions Note Date & Type Note Facility 12-19-2024 History of Present illness Narrative CARDIOLOGY OFFICE NOTE Date: 12/19/2024 Patient: Willie Espinosa Date of : 1940 Primary Physician: Bautista Thayer MD REASON FOR VISIT / CHIEF COMPLAINT: Cardiology follow-up post testing. HPI: Willie Espinosa was seen in cardiac evaluation at the [facility] Cardiology office December 19, 2024. The patients [...] 4 beat nonsustained ventricular tachycardia megan. No atrial fibrillation. She does note that she gets so [...] monitor 11/2024 Nonsustained ventricular tachycardia 4 beat emgan, Holter monitor 11/2024 Congestive heart failure, diastolic, [...] which noted some nocturnal bradycardia, second-degree heart block 1 short megan of nonsustained ventricular tachycardia. She [...] diabetes and her LDL cholesterol of 131. [place] goal would be less than 70. She will continue her other medications. Refills were provided. Exercise dietary program. Hydration. [employer] portal use was encouraged. We will plan [...] this visit PROBLEM LIST: Problem List[1] Nagi Murry MD, [facility] / Cardiology Of Note: [email or web address] voice recognition dictation software was utilized partially [...] diastolic heart failure documented in this encounter [facility] Work Phone: 12-19-2024 Instructions Eleonora Tobias LPN - 12/19/2024 1:30 PM [...] CRESTOR 10 MG IN THE EVENING LABWORK The following attachments cannot be sent through Care Everywhere.Heart Healthy Diet (Chadian)documented in this encounter [facility] Work Phone: 12-05-2024 History of Present illness Narrative Images from the original note were not included. Lesions: Location: face x 3 Duration: year Quality: itchy Modifying factors: relieved with scratching Associated symptoms: bumps , scaly Treatments: none Lesion # 2: Location: left lower leg Duration: year Quality: itchy, mcgrath Modifying factors: aggravated by picking, relieved with scratching Associated symptoms: red, rough Treatments: none Established patient All pertinent medical history, medications, and allergies were reviewed. General Exam: alert, oriented to person, place, and time, normal affect, well appearing uses a cane Accompanied by granddaughter A focused exam completed based on patient reported problems, see below: Skin Exam 1. HISTORY OF BASAL CELL CARCINOMA Left Nose No evidence of recurrence at BCC scar. The patient was counseled that scars from excisional sites of nonmelanoma skin cancers should be monitored closely for recurrence. The patient was instructed to contact the office for any new, changing, or symptomatic moles. The patient was also instructed to contact the office for any new lesions that develop within or around the previous surgery scar. 2. SEBORRHEIC KERATOSIS, INFLAMED (2) Left Parotid Area, Right Parotid Area Chance and brown stuck on verrucous scaly papule [...] limited to risks of scarring, darker or internet assessor pigmentary changes, recurrence, incomplete removal and infection. Method: Liquid nitrogen was used to treat the lesion(s) with two 5-10 second freeze-thaw cycles Number of lesions treated: 2 Post-procedure instructions: Instructions were given orally and in writing. The office will be contacted if the lesion fails to resolve despite treatment, or if a side effect develops such as abnormal crusting, scabbing, redness or tenderness Cryotherapy, skin lesion - Left Parotid Area, Right Parotid Area 3. ACTINIC KERATOSIS Left Buccal Cheek Erythematous scaly papules Patient was counseled regarding [...] limited to risks of scarring, darker or internet assessor pigmentary changes, recurrence, incomplete removal and infection. Method: Liquid nitrogen was used to treat the lesion(s) with two 5-10 second freeze-thaw cycles. Eyes were shielded using cotton pad during procedure Number of lesions treated: 1 Post-procedure instructions: Instructions were given orally and in writing. The office will be contacted if the lesion fails to resolve despite treatment, or if a side effect develops such as abnormal crusting, scabbing, redness or tenderness Cryotherapy, skin lesion - Left Buccal Cheek 4. MILIA Left Lower Vermilion Lip Small white or yellow papules. Reassure, benign. Discussed milia may self resolve or they can be removed for a cosmetic fee. 5. SEBORRHEIC KERATOSIS Left Lower Leg - Anterior Stuck on verrucous, menard-brown papules and plaques. Patient was counseled regarding these benign growths. Removal is normally not necessary, but they may be removed if they are symptomatic or for cosmetic reasons. Next Visit: 6 months documented in this encounter [facility] 11-21-2024 Note Sinus rhythm, low vo ltage, poor R wave anterior progression, question anterior SC. Rate 70. [facility] 11-21-2024 History of Present illness Narrative CARDIOLOGY [...] dietary program as tolerated. Hydration. Support stockings [employer] portal use was encouraged. We will plan to see back after the above testing with Laboratory Studies and ECG as noted. Patient will follow up with their primary physician for general care. The patient knows to contact medical care earlier if need be. HPI: Willie Espinosa was seen in cardiac evaluation at the [facility] Cardiology office November 21, 2024. The patients [...] breakfast losartan (COZAAR) 25 mg, Daily RT Lyumdanny KwikPen U-100 Insulin 8 Units Toutwyla SoloStar U-300 Insulin 33 Units PAST MEDICAL [...] poor R wave anterior progression, question anterior SC. Rate 70. CARDIAC TESTING: Echocardiogram, 11/2023: Normal left ventricular function. Left ventricular ejection fraction 65 to 70% Left ventricular hypertrophy Biatrial enlargement LV diastolic dysfunction Mild mitral and tricuspid regurgitation Myoview cardiac fusion stress test, 04/2023: Negative study without evidence of ischemia or SC LVEF 82%. LABORATORY DATA: 11/24/2024: Chem-7, CBC normal except for creatinine 1.2, GFR 43. PROBLEM LIST: Problem List[1] Nagi Murry MD, [facility] / Cardiology Of Note: [email or web address] voice recognition dictation software was utilized partially in the preparation of this note, therefore, inaccuracies in spelling, word choice and punctuation may have occurred which were not recognized at the time of signing. Patient was seen and examined with total time of visit including chart preparation, rooming, and chart completion exceeding 40 minutes. Eleonora Pierre LPN am scribing for, and in the presence of Dr. Nagi Murry MD, [facility]. I, Dr. Nagi Murry MD, [facility], personally performed the services described in [...] diastolic heart failure documented in this encounter [facility] Work Phone: 11-21-2024 Instructions Eleonora Tobias [...] be sent through Care Everywhere.Preventing Falls ED (Chadian)Heart Healthy Diet (Chadian)documented in this encounter [facility] Work Phone: 11-11-2024 History of Present [...] not included. HPI Diabetes Additional comments: Last . Last edited by Britni Aguayo MA on [...] being taken. She does not see a business continuity director.Eye exam is current. Over the past 2 [...] TIMES DAILY 270 tablet 1 Continuous Glucose Oxide Furnace Tender (FreeStyle Ivy 2 [place]) device Inject 1 Device under the skin Daily 1 each 0 Continuous Glucose Sensor (FreeStyle Ivy 2 Sensor) misc Inject 1 Device under the skin every 14 (fourteen) days 6 each 3 Elastic Bandages & Supports (Post-OP Shoe/Soft Top Women) misc Apply the shoe daily, use until foot is healed 1 each 0 ergocalciferol (Vitamin D2) 1.25 MG (85711 UT) capsule Take 1 capsule (1.25 mg) [...] PARTIAL Left Left lung frontal lobe removed [place] ARTHROCENTESIS ASPIR&/INJ MAJOR JT/BURSA W/O US Right [...] diet and exercise. Relevant Medications insulin lispro-aabc (Lyumjealok TimothyRavindra) 100 UNIT/ML pen Other Relevant Orders POCT [...] 02/11/2025) for Diabetes. documented in this encounter [facility] 10-18-2024 Telephone encounter Note Refill sent in for pt of Losartan [facility] 10-18-2024 Miscellaneous Notes Refill sent in for pt of Losartan documented in this encounter [facility] 08-12-2024 History of Present illness Narrative Associated Problem(s): Basal cell carcinoma (BCC) of left side of nose S/P Moh's Procedure Associated Problem(s): Type 2 diabetes mellitus with diabetic chronic kidney disease (CMS/HCC) No Tobacco use Follow ADA 1800 [...] being taken. She does not see a business continuity director.Eye exam is current. Current Outpatient Medications on [...] DAILY 270 tablet 1 Continuous Blood Gluc Oxide Furnace Tender (FreeStyle Ivy 2 [place]) device USE DIRECTED DAILY FOR 365 DAYS Continuous Glucose Sensor (FreeStyle Ivy 2 Sensor) misc Inject 1 Device under the skin every 14 (fourteen) days 6 each 3 Elastic Bandages & Supports (Post-OP Shoe/Soft Top Women) misc Apply the shoe daily, use until foot is healed 1 each 0 ergocalciferol (Vitamin D2) 1.25 MG (54031 UT) capsule Take 1 capsule (1.25 mg) [...] PARTIAL Left Left lung frontal lobe removed [place] ARTHROCENTESIS ASPIR&/INJ MAJOR JT/BURSA W/O US Right [...] List Items Addressed This Visit Diabetic retinopathy ([facility]/HCC) Relevant Medications insulin aspart (NovoLOG FLEXPEN) 100 UNIT/ML pen Hypothyroidism (CMS/HCC) Relevant Orders TSH W/REFLEX TO FT4 Chronic kidney disease, stage 3b ([facility]) ([facility]) Monitor Increase fluids Avoid nephrotoxic substances Avoid NSAIDs such as Ibuprofen, Motrin, Naprosyn. Increase fluids. Uncontrolled type 2 diabetes mellitus with hypoglycemia ([facility]) Relevant Medications insulin glargine (Toujeo Max SoloStar) 300 UNIT/ML injection Other Relevant Orders Microalbumin / creatinine urine ratio POCT Glycated hemoglobin, total (Completed) Type 2 diabetes mellitus with diabetic chronic kidney disease ([facility]) No Tobacco use Follow ADA 1800 diet [...] 11/11/2024) for Diabetes. documented in this encounter [facility] 08-02-2024 History of Present illness Narrative Subjective [...] skin of nose documented in this encounter [facility] 07-03-2024 History of Present illness Narrative HPI [...] in 1 month documented in this encounter [facility] 06-21-2024 History of Present illness Narrative Subjective [...] 20 capsule, Rfl: 0 Continuous Blood Gluc Oxide Furnace Tender (FreeStyle Ivy 2 [place]) device, USE DIRECTED DAILY FOR 365 DAYS, Disp: , Rfl: Continuous Glucose Sensor (FreeStyle Ivy 2 Sensor) misc, Inject 1 Device under the skin every 14 (fourteen) days, Disp: 6 each, Rfl: 3 Elastic Bandages & Supports (Post-OP Shoe/Soft Top Women) misc, Apply the shoe daily, use until foot is healed, Disp: 1 each, Rfl: 0 ergocalciferol (Vitamin D2) 1.25 MG (72683 UT) capsule, Take 1 capsule (1.25 mg) [...] PARTIAL Left Left lung frontal lobe removed [place] ARTHROCENTESIS ASPIR&/INJ MAJOR JT/BURSA W/O US Right [...] min Stress: No Stress Concern Present (11/01/2022) [employer] - Occupational Stress Questionnaire Feeling of Stress : Only a little Social Connections: Moderately Integrated (11/01/2022) Social Connection and Isolation Panel [NHANES] Frequency of Communication with Friends and Family: More than three times a week Frequency of Social Gatherings with Friends and Family: More than three times a week Attends Judaism Services: More than 4 times per year [...] serous disability, and documented in this encounter [facility] 06-20-2024 History of Present illness Narrative Images [...] meds, nerve injury, and recurrence were addressed.) [place] Protocol: Procedure explained and questions answered to [...] sodium bicarbonate Procedure Details: Biopsy accession number: [id number] Biopsy lab: [facility] Date of biopsy: 02/29/2024 Frozen section biopsy [...] 11/28/2024, skin check documented in this encounter [facility] 05-16-2024 History of Present illness Narrative Associated Problem(s): Essential hypertension (CMS/HCC) Narrative & [place] [address] Cardiology Report Signed Patient: WILLIE ESPINOSA MR#: [id number] : 1940 Acct:[id number] Age/Sex: 83 / F ADM Date: 11/23/23 Loc: CARD Attending Dr: BAUTISTA THAYER Ordering Physician: BAUTISTA THAYER Date of Service: 11/23/23 Procedure(s): CA echo doppler complete Accession Number(s): [id number] cc: BAUTISTA THAYER Patient Name: WILLIE ESPINOSA MR#: [id number] : 1940 Exam Date: 11/23/2023 Ordering Doctor: [...] DAILY 270 tablet 1 Continuous Blood Gluc Oxide Furnace Tender (citiservi Ivy 2 Swanton) device USE DIRECTED DAILY FOR 365 DAYS Continuous Glucose Sensor (FreeStyle Ivy 2 Sensor) misc Inject 1 Device under the skin every 14 (fourteen) days 6 each 3 Elastic Bandages & Supports (Post-OP Shoe/Soft Top Women) misc Apply the shoe daily, use until foot is healed 1 each 0 ergocalciferol (Vitamin D2) 1.25 MG (88689 UT) capsule Take 1 capsule (1.25 mg) [...] Do you have a medical power of aemt?: No Objective : BP 128/78 Pulse 72 [...] Essential hypertension (CMS/HCC) Narrative & [place] [address] Cardiology Report Signed Patient: WILLIE ESPINOSA MR#: [id number] : 1940 Acct:[id number] Age/Sex: 83 / F ADM Date: 11/23/23 Loc: CARD Attending Dr: BAUTISTA THAYER Ordering Physician: BAUTISTA THAYER Date of Service: 11/23/23 Procedure(s): CA echo doppler complete Accession Number(s): [id number] cc: BAUTISTA THAYER Patient Name: WILLIE ESPINOSA MR#: [id number] : 1940 Exam Date: 11/23/2023 Ordering Doctor: [...] Relevant Medications ergocalciferol (Vitamin D2) 1.25 MG (96746 UT) capsule Uncontrolled type 2 diabetes mellitus [...] May 16, 2024 documented in this encounter [facility] 04-09-2024 History of Present illness Narrative Associated [...] DAILY 270 tablet 1 Continuous Blood Gluc Oxide Furnace Tender (FreeStyle Ivy 2 [place]) device USE DIRECTED DAILY FOR 365 DAYS Continuous Glucose Sensor (FreeStyle Ivy 2 Sensor) misc Inject 1 Device under the skin every 14 (fourteen) days 6 each 3 Elastic Bandages & Supports (Post-OP Shoe/Soft Top Women) misc Apply the shoe daily, use until foot is healed 1 each 0 ergocalciferol (Vitamin D2) 1.25 MG (95826 UT) capsule Take 1 capsule (1.25 mg) [...] PARTIAL Left Left lung frontal lobe removed [place] ARTHROCENTESIS ASPIR&/INJ MAJOR JT/BURSA W/O US Right [...] DAILY 270 tablet 1 Continuous Blood Gluc Oxide Furnace Tender (FreeStyle Ivy 2 [place]) device USE DIRECTED DAILY FOR 365 DAYS Continuous Glucose Sensor (FreeStyle Ivy 2 Sensor) misc Inject 1 Device under the skin every 14 (fourteen) days 6 each 3 Elastic Bandages & Supports (Post-OP Shoe/Soft Top Women) misc Apply the shoe daily, use until foot is healed 1 each 0 ergocalciferol (Vitamin D2) 1.25 MG (55910 UT) capsule Take 1 capsule (1.25 mg) [...] PARTIAL Left Left lung frontal lobe removed [place] ARTHROCENTESIS ASPIR&/INJ MAJOR JT/BURSA W/O US Right [...] follow-ups on file. documented in this encounter [facility] 04-05-2024 Telephone encounter Note Sent. [facility] 04-05-2024 Miscellaneous Notes Sent. documented in this encounter [facility] 02-29-2024 History of Present illness Narrative Images [...] limited to risks of scarring, darker or internet assessor pigmentary changes, recurrence, incomplete removal and infection. [...] Seborrheic keratosis, inflamed Left Forearm - Anterior Chance and brown stuck on verrucous scaly papule [...] limited to risks of scarring, darker or internet assessor pigmentary changes, recurrence, incomplete removal and infection. [...] tissue, and skin Mid Tip of Nose Chance pearly papule Lesion biopsy Type of biopsy: [...] pending biopsy results documented in this encounter [facility] 02-21-2024 Telephone encounter Note $20.00 copay [facility] 02-21-2024 Miscellaneous Notes $20.00 copay documented in this encounter [facility] 02-06-2024 History of Present illness Narrative Associated Problem(s): History of COVID-19 Patient had last March Patient inquires about new vaccine Has immunity Associated Problem(s): Uncontrolled type 2 diabetes mellitus with hypoglycemia ([facility]) No Tobacco use Follow ADA 1800 diet [...] Had eye exam last week with Dr. Bagley Diabetes She presents for her follow-up diabetic [...] being taken. She does not see a business continuity director.Eye exam is current. Current Outpatient Medications on [...] DAILY 270 tablet 1 Continuous Blood Gluc Oxide Furnace Tender (FreeStyle Ivy 2 [place]) device USE DIRECTED DAILY FOR 365 DAYS Elastic Bandages & Supports (Post-OP Shoe/Soft Top Women) misc Apply the shoe daily, use until foot is healed 1 each 0 ergocalciferol (Vitamin D2) 1.25 MG (04436 UT) capsule Take 1 capsule (1.25 mg) [...] PARTIAL Left Left lung frontal lobe removed [place] ARTHROCENTESIS ASPIR&/INJ MAJOR JT/BURSA W/O US Right [...] Uncontrolled type 2 diabetes mellitus with hypoglycemia ([facility]) No Tobacco use Follow ADA 1800 diet [...] Relevant Orders Influenza, high-dose seasonal, quadrivalent, PF (GYO959) (Fluzone High Dose [place] 0.7mL dose) (Completed) No follow-ups on file. documented in this encounter [facility] 06-08-2023 History of Present illness Narrative HPI [...] chew. 21 capsule 1 Continuous Blood Gluc Oxide Furnace Tender (FreeStyle Ivy 2 [place]) device USE DIRECTED DAILY FOR 365 DAYS Continuous Blood Gluc Sensor (FreeStyle Ivy 2 Sensor) misc USE 1 SENSOR EVERY 14 DAYS ergocalciferol (Vitamin D2) 1.25 MG (94871 UT) capsule Take 1 capsule (1.25 mg) [...] PARTIAL Left Left lung frontal lobe removed [place] ARTHROCENTESIS ASPIR&/INJ MAJOR JT/BURSA W/O US Right [...] of insulin, unspecified laterality, unspecified retinopathy severity ([facility]) - insulin pen needle (BD Pen Needle [...] neuropathy associated with type 2 diabetes mellitus ([facility]) Advised pt she cannot take the Gabapentin [...] diffuse otitis externa of both ears - wzkdiwek-dotayhmli-oashznjgpnxeci (Cortisporin) 3.5-57295-4 otic suspension; Administer 3 drops into each [...] Appointment As Scheduled. documented in this encounter [facility] Healthcare Evaluation note Diagnosis Type 2 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, with long-term current use of insulin, unspecified laterality, unspecified retinopathy severity (CMS/HCC)- Primary Diabetic autonomic neuropathy associated with type 2 diabetes mellitus (CMS/HCC) Type II or unspecified type diabetes mellitus with neurological manifestations, not stated as uncontrolled Left foot pain Pain in soft tissues of limb Acute left ankle pain Acute diffuse otitis externa of both ears documented in this encounter [facility] HealthcareEvaluation note* Diagnosis Diabetic autonomic neuropathy associated [...] colon Stage 3a chronic kidney disease (HCC) (CMS/HCC) Stage 3 chronic kidney disease, unspecified whether stage 3a or 3b CKD (HCC) (CMS/HCC)- Primary Diabetes insipidus (CMS/HCC) Diabetes insipidus Acquired hypothyroidism (CMS/HCC) Unspecified hypothyroidism 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, unspecified laterality ([facility]) Diabetic nephropathy associated with type 2 diabetes mellitus (HCC) ([facility]) Uncontrolled type 2 diabetes mellitus with hypoglycemia, unspecified hypoglycemia coma status ([facility]) Flu vaccine need Uncontrolled diabetes mellitus with hyperglycemia, with long-term current use of insulin ([facility])- Primary Uncontrolled type 2 diabetes mellitus with hypoglycemia, unspecified hypoglycemia coma status ([facility]) 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 ([facility]) Stage 3a chronic kidney disease (HCC) ([facility]) Flatulence, eructation and gas pain Flatulence, eructation, and gas pain Diabetic autonomic neuropathy associated with type 2 diabetes mellitus ([facility])- Primary Type II or unspecified type diabetes mellitus with neurological manifestations, not stated as uncontrolled 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, unspecified laterality ([facility]) 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 ([facility]) Uncontrolled type 2 diabetes mellitus with hypoglycemia without coma ([facility]) 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[facility]) Type II or unspecified type diabetes mellitus without mention of complication, not stated as uncontrolled Chest pain due to myocardial ischemia, unspecified ischemic chest pain type ([facility]) Stage 3a chronic kidney disease (HCC) ([facility])- Primary Vitamin D deficiency Hypothyroidism, unspecified type ([facility]) Morbid (severe) obesity due to excess calories (E66.01) Type 2 diabetes mellitus with diabetic autonomic neuropathy, with long-term current use of insulin ([facility]) Body mass index [BMI] 37.0-37.9, adult (Z68.37) Diabetic nephropathy associated with type 2 diabetes mellitus (HCC) ([facility]) Closed fracture of left foot with delayed healing, subsequent encounter Diabetic nephropathy associated with type 2 diabetes mellitus (HCC) ([facility])- Primary Type 2 diabetes mellitus with diabetic autonomic neuropathy, with long-term current use of insulin ([facility]) Routine general medical examination at health care facility- Primary Routine general medical examination at a health care facility Abnormal glucose tolerance test Impaired glucose tolerance test Benign essential hypertension ([facility]) Essential hypertension, benign Medicare annual wellness visit, subsequent Mixed hyperlipidemia ([facility]) Mixed hyperlipidemia Hypothyroidism, unspecified type ([facility]) 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 (CMS/HCC) Diabetic nephropathy associated with type 2 diabetes mellitus (HCC) (CMS/HCC) Uncontrolled type 2 diabetes mellitus with hypoglycemia, [...] aorta (CMS/HCC) Atherosclerosis of aorta Essential hypertension (CMS/HCC) Unspecified essential hypertension Murmur, cardiac Undiagnosed cardiac murmurs Fall in home, initial encounter- Primary Uncontrolled type 2 diabetes mellitus with hypoglycemia, unspecified hypoglycemia coma status ([facility]/HCC) Encounter for vaccination History of COVID-19 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, unspecified laterality (CMS/HCC) documented in this encounter [facility] HealthcareEvaluation note* Diagnosis Diabetic autonomic neuropathy associated [...] colon Stage 3a chronic kidney disease (HCC) (CMS/HCC) Stage 3 chronic kidney disease, unspecified whether stage 3a or 3b CKD (HCC) (CMS/HCC)- Primary Diabetes insipidus (CMS/HCC) Diabetes insipidus Acquired hypothyroidism (CMS/HCC) Unspecified hypothyroidism 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, unspecified laterality (CMS/HCC) Diabetic nephropathy associated with type 2 diabetes mellitus (HCC) (CMS/HCC) Uncontrolled type 2 diabetes mellitus with hypoglycemia, unspecified hypoglycemia coma status (CMS/HCC) Flu vaccine need Uncontrolled diabetes mellitus with hyperglycemia, with long-term current use of insulin (CMS/HCC)- Primary Uncontrolled type 2 diabetes mellitus with hypoglycemia, unspecified hypoglycemia coma status (CMS/HCC) 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 (CMS/HCC) Stage 3a chronic kidney disease (HCC) ([facility]/HCC) Flatulence, eructation and gas pain Flatulence, eructation, and gas pain Diabetic autonomic neuropathy associated with type 2 diabetes mellitus (CMS/HCC)- Primary Type II or unspecified type diabetes mellitus with neurological manifestations, not stated as uncontrolled 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, unspecified laterality ([facility]/HCC) 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 ([facility]/HCC) Uncontrolled type 2 diabetes mellitus with hypoglycemia without coma ([facility]/HCC) 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) Type II or unspecified type diabetes mellitus without mention of complication, not stated as uncontrolled Chest pain due to myocardial ischemia, unspecified ischemic chest pain type (CMS/HCC) Stage 3a chronic kidney disease (HCC) ([facility])- Primary Vitamin D deficiency Hypothyroidism, unspecified type ([facility]) Morbid (severe) obesity due to excess calories (E66.01) Type 2 diabetes mellitus with diabetic autonomic neuropathy, with long-term current use of insulin ([facility]) Body mass index [BMI] 37.0-37.9, adult (Z68.37) Diabetic nephropathy associated with type 2 diabetes mellitus (HCC) ([facility]) Closed fracture of left foot with delayed healing, subsequent encounter Diabetic nephropathy associated with type 2 diabetes mellitus (HCC) ([facility])- Primary Type 2 diabetes mellitus with diabetic autonomic neuropathy, with long-term current use of insulin ([facility]) Routine general medical examination at health care facility- Primary Routine general medical examination at a health care facility Abnormal glucose tolerance test Impaired glucose tolerance test Benign essential hypertension ([facility]) Essential hypertension, benign Medicare annual wellness visit, subsequent Mixed hyperlipidemia ([facility]) Mixed hyperlipidemia Hypothyroidism, unspecified type ([facility]) 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 ([facility]/HCC) Diabetic nephropathy associated with type 2 diabetes mellitus (HCC) ([facility]) Uncontrolled type 2 diabetes mellitus with hypoglycemia, unspecified hypoglycemia coma status ([facility]) Dizziness Dizziness and giddiness Neck pain Cervicalgia Diabetic autonomic neuropathy associated with type 2 diabetes mellitus ([facility]/HCC)- Primary Type II or unspecified type diabetes mellitus with neurological manifestations, not stated as uncontrolled Restless legs Restless legs syndrome (RLS) Edema, unspecified type Malignant neoplasm of sigmoid colon (CMS/HCC) Malignant neoplasm of sigmoid colon Atherosclerosis of aorta ([facility]/HCC) Atherosclerosis of aorta Essential hypertension ([facility]) Unspecified essential hypertension Murmur, cardiac Undiagnosed cardiac murmurs Fall in home, initial encounter- Primary Uncontrolled type 2 diabetes mellitus with hypoglycemia, unspecified hypoglycemia coma status ([facility]) Encounter for vaccination History of COVID-19 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, unspecified laterality ([facility]/HCC) Psoriasis vulgaris ([facility])- Primary Other psoriasis Seborrheic keratosis Actinic keratosis Seborrheic keratosis, inflamed Neoplasm of unspecified behavior of bone, soft tissue, and skin documented in this encounter [facility] HealthcareEvaluation note* Diagnosis Diabetic autonomic neuropathy associated with type 2 diabetes mellitus ([facility]/HCC)- Primary Type II or unspecified type diabetes mellitus with neurological manifestations, not stated as uncontrolled Edema, unspecified type Degeneration of lumbar intervertebral disc Degeneration of lumbar or lumbosacral intervertebral disc Vitamin D deficiency Diabetic nephropathy associated with type 2 diabetes mellitus (HCC) ([facility]) Morbid obesity ([facility]) Morbid obesity Diabetes insipidus ([facility]) Diabetes insipidus Malignant tumor of sigmoid colon ([facility]) Malignant neoplasm of sigmoid colon Stage 3a chronic kidney disease (HCC) ([facility]) Stage 3 chronic kidney disease, unspecified whether stage 3a or 3b CKD (HCC) ([facility])- Primary Diabetes insipidus ([facility]) Diabetes insipidus Acquired hypothyroidism ([facility]) Unspecified hypothyroidism 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, unspecified laterality ([facility]) Diabetic nephropathy associated with type 2 diabetes mellitus (HCC) ([facility]) Uncontrolled type 2 diabetes mellitus with hypoglycemia, unspecified hypoglycemia coma status ([facility]) Flu vaccine need Uncontrolled diabetes mellitus with hyperglycemia, with long-term current use of insulin ([facility])- Primary Uncontrolled type 2 diabetes mellitus with hypoglycemia, unspecified hypoglycemia coma status ([facility]) 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 ([facility]) Stage 3a chronic kidney disease (HCC) ([facility]) Flatulence, eructation and gas pain Flatulence, eructation, and gas pain Diabetic autonomic neuropathy associated with type 2 diabetes mellitus ([facility]/HCC)- Primary Type II or unspecified type diabetes mellitus with neurological manifestations, not stated as uncontrolled 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, unspecified laterality ([facility]) 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 ([facility]/HCC) Uncontrolled type 2 diabetes mellitus with hypoglycemia without coma ([facility]) 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[facility]) Type II or unspecified type diabetes mellitus without mention of complication, not stated as uncontrolled Chest pain due to myocardial ischemia, unspecified ischemic chest pain type ([facility]) Stage 3a chronic kidney disease (HCC) ([facility])- Primary Vitamin D deficiency Hypothyroidism, unspecified type ([facility]) Morbid (severe) obesity due to excess calories (E66.01) Type 2 diabetes mellitus with diabetic autonomic neuropathy, with long-term current use of insulin ([facility]) Body mass index [BMI] 37.0-37.9, adult (Z68.37) Diabetic nephropathy associated with type 2 diabetes mellitus (HCC) ([facility]) Closed fracture of left foot with delayed healing, subsequent encounter Diabetic nephropathy associated with type 2 diabetes mellitus (HCC) ([facility])- Primary Type 2 diabetes mellitus with diabetic autonomic neuropathy, with long-term current use of insulin ([facility]) Routine general medical examination at health care facility- Primary Routine general medical examination at a health care facility Abnormal glucose tolerance test Impaired glucose tolerance test Benign essential hypertension ([facility]) Essential hypertension, benign Medicare annual wellness visit, subsequent Mixed hyperlipidemia ([facility]) Mixed hyperlipidemia Hypothyroidism, unspecified type ([facility]) 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 ([facility]) Diabetic nephropathy associated with type 2 diabetes mellitus (HCC) ([facility]) Uncontrolled type 2 diabetes mellitus with hypoglycemia, unspecified hypoglycemia coma status ([facility]) Dizziness Dizziness and giddiness Neck pain Cervicalgia Diabetic autonomic neuropathy associated with type 2 diabetes mellitus ([facility]/HCC)- Primary Type II or unspecified type diabetes mellitus with neurological manifestations, not stated as uncontrolled Restless legs Restless legs syndrome (RLS) Edema, unspecified type Malignant neoplasm of sigmoid colon ([facility]) Malignant neoplasm of sigmoid colon Atherosclerosis of aorta ([facility]) Atherosclerosis of aorta Essential hypertension ([facility]) Unspecified essential hypertension Murmur, cardiac Undiagnosed cardiac murmurs Fall in home, initial encounter- Primary Uncontrolled type 2 diabetes mellitus with hypoglycemia, unspecified hypoglycemia coma status ([facility]) Encounter for vaccination History of COVID-19 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, unspecified laterality ([facility]/HCC) Uncontrolled type 2 diabetes mellitus with hypoglycemia, unspecified hypoglycemia coma status ([facility]/HCC) documented in this encounter [facility] HealthcareEvaluation note* Diagnosis Diabetic autonomic neuropathy associated with type 2 diabetes mellitus ([facility]/HCC)- Primary Type II or unspecified type diabetes mellitus with neurological manifestations, not stated as uncontrolled Edema, unspecified type Degeneration of lumbar intervertebral disc Degeneration of lumbar or lumbosacral intervertebral disc Vitamin D deficiency Diabetic nephropathy associated with type 2 diabetes mellitus (HCC) ([facility]/HCC) Morbid obesity ([facility]/HCC) Morbid obesity Diabetes insipidus ([facility]/HCC) Diabetes insipidus Malignant tumor of sigmoid colon ([facility]/HCC) Malignant neoplasm of sigmoid colon Stage 3a chronic kidney disease (HCC) ([facility]/HCC) Stage 3 chronic kidney disease, unspecified whether stage 3a or 3b CKD (HCC) ([facility])- Primary Diabetes insipidus ([facility]) Diabetes insipidus Acquired hypothyroidism ([facility]) Unspecified hypothyroidism 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, unspecified laterality ([facility]/HCC) Diabetic nephropathy associated with type 2 diabetes mellitus (HCC) ([facility]/HCC) Uncontrolled type 2 diabetes mellitus with hypoglycemia, unspecified hypoglycemia coma status ([facility]) Flu vaccine need Uncontrolled diabetes mellitus with hyperglycemia, with long-term current use of insulin ([facility])- Primary Uncontrolled type 2 diabetes mellitus with hypoglycemia, unspecified hypoglycemia coma status ([facility]/HCC) 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 ([facility]) Stage 3a chronic kidney disease (HCC) ([facility]) Flatulence, eructation and gas pain Flatulence, eructation, and gas pain Diabetic autonomic neuropathy associated with type 2 diabetes mellitus ([facility]/HCC)- Primary Type II or unspecified type diabetes mellitus with neurological manifestations, not stated as uncontrolled 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, unspecified laterality ([facility]/HCC) 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 ([facility]/HCC) Uncontrolled type 2 diabetes mellitus with hypoglycemia without coma ([facility]) 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[facility]) Type II or unspecified type diabetes mellitus without mention of complication, not stated as uncontrolled Chest pain due to myocardial ischemia, unspecified ischemic chest pain type ([facility]/HCC) Stage 3a chronic kidney disease (HCC) ([facility])- Primary Vitamin D deficiency Hypothyroidism, unspecified type ([facility]/HCC) Morbid (severe) obesity due to excess calories (E66.01) Type 2 diabetes mellitus with diabetic autonomic neuropathy, with long-term current use of insulin ([facility]) Body mass index [BMI] 37.0-37.9, adult (Z68.37) Diabetic nephropathy associated with type 2 diabetes mellitus (HCC) ([facility]) Closed fracture of left foot with delayed healing, subsequent encounter Diabetic nephropathy associated with type 2 diabetes mellitus (HCC) ([facility])- Primary Type 2 diabetes mellitus with diabetic autonomic neuropathy, with long-term current use of insulin ([facility]) Routine general medical examination at health care facility- Primary Routine general medical examination at a health care facility Abnormal glucose tolerance test Impaired glucose tolerance test Benign essential hypertension ([facility]) Essential hypertension, benign Medicare annual wellness visit, subsequent Mixed hyperlipidemia ([facility]) Mixed hyperlipidemia Hypothyroidism, unspecified type ([facility]) 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 ([facility]) Diabetic nephropathy associated with type 2 diabetes mellitus (HCC) ([facility]) Uncontrolled type 2 diabetes mellitus with hypoglycemia, unspecified hypoglycemia coma status ([facility]) Dizziness Dizziness and giddiness Neck pain Cervicalgia Diabetic autonomic neuropathy associated with type 2 diabetes mellitus ([facility]/HCC)- Primary Type II or unspecified type diabetes mellitus with neurological manifestations, not stated as uncontrolled Restless legs Restless legs syndrome (RLS) Edema, unspecified type Malignant neoplasm of sigmoid colon ([facility]) Malignant neoplasm of sigmoid colon Atherosclerosis of aorta ([facility]) Atherosclerosis of aorta Essential hypertension ([facility]) Unspecified essential hypertension Murmur, cardiac Undiagnosed cardiac murmurs Fall in home, initial encounter- Primary Uncontrolled type 2 diabetes mellitus with hypoglycemia, unspecified hypoglycemia coma status ([facility]) Encounter for vaccination History of COVID-19 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, unspecified laterality ([facility]) Cellulitis of left upper extremity- Primary documented in this encounter [facility] HealthcareEvaluation note* Diagnosis Diabetic autonomic neuropathy associated with type 2 diabetes mellitus ([facility]/HCC)- Primary Type II or unspecified type diabetes mellitus with neurological manifestations, not stated as uncontrolled Edema, unspecified type Degeneration of lumbar intervertebral disc Degeneration of lumbar or lumbosacral intervertebral disc Vitamin D deficiency Diabetic nephropathy associated with type 2 diabetes mellitus (HCC) ([facility]) Morbid obesity ([facility]/HCC) Morbid obesity Diabetes insipidus ([facility]/HCC) Diabetes insipidus Malignant tumor of sigmoid colon ([facility]/HCC) Malignant neoplasm of sigmoid colon Stage 3a chronic kidney disease (HCC) ([facility]/HCC) Stage 3 chronic kidney disease, unspecified whether stage 3a or 3b CKD (HCC) ([facility])- Primary Diabetes insipidus ([facility]) Diabetes insipidus Acquired hypothyroidism ([facility]) Unspecified hypothyroidism 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, unspecified laterality ([facility]) Diabetic nephropathy associated with type 2 diabetes mellitus (HCC) ([facility]) Uncontrolled type 2 diabetes mellitus with hypoglycemia, unspecified hypoglycemia coma status ([facility]) Flu vaccine need Uncontrolled diabetes mellitus with hyperglycemia, with long-term current use of insulin ([facility])- Primary Uncontrolled type 2 diabetes mellitus with hypoglycemia, unspecified hypoglycemia coma status ([facility]) 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 ([facility]) Stage 3a chronic kidney disease (HCC) ([facility]) Flatulence, eructation and gas pain Flatulence, eructation, and gas pain Diabetic autonomic neuropathy associated with type 2 diabetes mellitus ([facility])- Primary Type II or unspecified type diabetes mellitus with neurological manifestations, not stated as uncontrolled 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, unspecified laterality ([facility]) 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 ([facility]) Uncontrolled type 2 diabetes mellitus with hypoglycemia without coma ([facility]) 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[facility]) Type II or unspecified type diabetes mellitus without mention of complication, not stated as uncontrolled Chest pain due to myocardial ischemia, unspecified ischemic chest pain type ([facility]) Stage 3a chronic kidney disease (HCC) ([facility])- Primary Vitamin D deficiency Hypothyroidism, unspecified type ([facility]) Morbid (severe) obesity due to excess calories (E66.01) Type 2 diabetes mellitus with diabetic autonomic neuropathy, with long-term current use of insulin ([facility]) Body mass index [BMI] 37.0-37.9, adult (Z68.37) Diabetic nephropathy associated with type 2 diabetes mellitus (HCC) ([facility]) Closed fracture of left foot with delayed healing, subsequent encounter Diabetic nephropathy associated with type 2 diabetes mellitus (HCC) ([facility])- Primary Type 2 diabetes mellitus with diabetic autonomic neuropathy, with long-term current use of insulin ([facility]) Routine general medical examination at health care facility- Primary Routine general medical examination at a health care facility Abnormal glucose tolerance test Impaired glucose tolerance test Benign essential hypertension ([facility]) Essential hypertension, benign Medicare annual wellness visit, subsequent Mixed hyperlipidemia ([facility]) Mixed hyperlipidemia Hypothyroidism, unspecified type ([facility]) 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 ([facility]) Diabetic nephropathy associated with type 2 diabetes mellitus (HCC) ([facility]) Uncontrolled type 2 diabetes mellitus with hypoglycemia, unspecified hypoglycemia coma status ([facility]) Dizziness Dizziness and giddiness Neck pain Cervicalgia Diabetic autonomic neuropathy associated with type 2 diabetes mellitus ([facility])- Primary Type II or unspecified type diabetes mellitus with neurological manifestations, not stated as uncontrolled Restless legs Restless legs syndrome (RLS) Edema, unspecified type Malignant neoplasm of sigmoid colon ([facility]) Malignant neoplasm of sigmoid colon Atherosclerosis of aorta ([facility]) Atherosclerosis of aorta Essential hypertension ([facility]) Unspecified essential hypertension Murmur, cardiac Undiagnosed cardiac murmurs Fall in home, initial encounter- Primary Uncontrolled type 2 diabetes mellitus with hypoglycemia, unspecified hypoglycemia coma status ([facility]) Encounter for vaccination History of COVID-19 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, unspecified laterality ([facility]) Cellulitis of left upper extremity- Primary Routine general medical examination at health care facility- Primary Routine general medical examination at a health care facility Uncontrolled type 2 diabetes mellitus with hypoglycemia, unspecified hypoglycemia coma status ([facility]) Vitamin D deficiency Medicare annual wellness visit, subsequent Essential hypertension ([facility]) Unspecified essential hypertension documented in this encounter [facility]* Diagnosis Diabetic autonomic neuropathy associated with type 2 diabetes mellitus ([facility]/HCC)- Primary Type II or unspecified type diabetes mellitus with neurological manifestations, not stated as uncontrolled Edema, unspecified type Degeneration of lumbar intervertebral disc Degeneration of lumbar or lumbosacral intervertebral disc Vitamin D deficiency Diabetic nephropathy associated with type 2 diabetes mellitus (HCC) ([facility]) Morbid obesity ([facility]) Morbid obesity Diabetes insipidus ([facility]) Diabetes insipidus Malignant tumor of sigmoid colon ([facility]) Malignant neoplasm of sigmoid colon Stage 3a chronic kidney disease (HCC) ([facility]) Stage 3 chronic kidney disease, unspecified whether stage 3a or 3b CKD ([facility]) ([facility])- Primary Diabetes insipidus ([facility]) Diabetes insipidus Acquired hypothyroidism ([facility]) Unspecified hypothyroidism 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, unspecified laterality ([facility]) Diabetic nephropathy associated with type 2 diabetes mellitus (HCC) ([facility]) Uncontrolled type 2 diabetes mellitus with hypoglycemia, unspecified hypoglycemia coma status ([facility]) Flu vaccine need Uncontrolled diabetes mellitus with hyperglycemia, with long-term current use of insulin ([facility])- Primary Uncontrolled type 2 diabetes mellitus with hypoglycemia, unspecified hypoglycemia coma status ([facility]) 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 ([facility]) Stage 3a chronic kidney disease (HCC) ([facility]) Flatulence, eructation and gas pain Flatulence, eructation, and gas pain Diabetic autonomic neuropathy associated with type 2 diabetes mellitus ([facility])- Primary Type II or unspecified type diabetes mellitus with neurological manifestations, not stated as uncontrolled 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, unspecified laterality ([facility]) 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 ([facility]) Uncontrolled type 2 diabetes mellitus with hypoglycemia without coma ([facility]) 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[facility]) Type II or unspecified type diabetes mellitus without mention of complication, not stated as uncontrolled Chest pain due to myocardial ischemia, unspecified ischemic chest pain type ([facility]) Stage 3a chronic kidney disease (HCC) ([facility])- Primary Vitamin D deficiency Hypothyroidism, unspecified type ([facility]) Morbid (severe) obesity due to excess calories (E66.01) Type 2 diabetes mellitus with diabetic autonomic neuropathy, with long-term current use of insulin ([facility]) Body mass index [BMI] 37.0-37.9, adult (Z68.37) Diabetic nephropathy associated with type 2 diabetes mellitus (HCC) ([facility]) Closed fracture of left foot with delayed healing, subsequent encounter Diabetic nephropathy associated with type 2 diabetes mellitus (HCC) ([facility])- Primary Type 2 diabetes mellitus with diabetic autonomic neuropathy, with long-term current use of insulin ([facility]) Routine general medical examination at health care facility- Primary Routine general medical examination at a health care facility Abnormal glucose tolerance test Impaired glucose tolerance test Benign essential hypertension ([facility]) Essential hypertension, benign Medicare annual wellness visit, subsequent Mixed hyperlipidemia ([facility]) Mixed hyperlipidemia Hypothyroidism, unspecified type ([facility]) 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 ([facility]) Diabetic nephropathy associated with type 2 diabetes mellitus (HCC) ([facility]) Uncontrolled type 2 diabetes mellitus with hypoglycemia, unspecified hypoglycemia coma status ([facility]) Dizziness Dizziness and giddiness Neck pain Cervicalgia Diabetic autonomic neuropathy associated with type 2 diabetes mellitus ([facility])- Primary Type II or unspecified type diabetes mellitus with neurological manifestations, not stated as uncontrolled Restless legs Restless legs syndrome (RLS) Edema, unspecified type Malignant neoplasm of sigmoid colon ([facility]) Malignant neoplasm of sigmoid colon Atherosclerosis of aorta ([facility]) Atherosclerosis of aorta Essential hypertension ([facility]) Unspecified essential hypertension Murmur, cardiac Undiagnosed cardiac murmurs Fall in home, initial encounter- Primary Uncontrolled type 2 diabetes mellitus with hypoglycemia, unspecified hypoglycemia coma status ([facility]) Encounter for vaccination History of COVID-19 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, unspecified laterality ([facility]) Cellulitis of left upper extremity- Primary Routine general medical examination at health care facility- Primary Routine general medical examination at a health care facility Uncontrolled type 2 diabetes mellitus with hypoglycemia, unspecified hypoglycemia coma status ([facility]) Vitamin D deficiency Medicare annual wellness visit, subsequent Essential hypertension ([facility]) Unspecified essential hypertension Type 2 diabetes mellitus with diabetic cataract ([facility]) Type II or unspecified type diabetes mellitus with ophthalmic manifestations, not stated as uncontrolled Morbid (severe) obesity due to excess calories ([facility]) Body mass index (BMI) 35.0-35.9, adult Type 2 diabetes mellitus with unspecified diabetic retinopathy without macular edema ([facility]) Type 2 diabetes mellitus with other specified complication ([facility]) Mixed hyperlipidemia ([facility]) Mixed hyperlipidemia Type 2 diabetes mellitus with diabetic autonomic (poly)neuropathy ([facility]) Type 2 diabetes mellitus with mild nonproliferative diabetic retinopathy without macular edema, unspecified eye ([facility]) Type 2 diabetes mellitus with diabetic chronic kidney disease ([facility]) Chronic kidney disease, stage 3a (HCC) ([facility]) Malignant neoplasm of sigmoid colon ([facility]) Malignant neoplasm of sigmoid colon Type 2 diabetes mellitus with diabetic neuropathy, unspecified ([facility]) 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 ([facility]) Basal cell carcinoma (BCC) of skin of nose documented in this encounter [facility] HealthcareEvaluation note* Diagnosis Diabetic autonomic neuropathy associated with type 2 diabetes mellitus ([facility]/HCC)- Primary Type II or unspecified type diabetes mellitus with neurological manifestations, not stated as uncontrolled Edema, unspecified type Degeneration of lumbar intervertebral disc Degeneration of lumbar or lumbosacral intervertebral disc Vitamin D deficiency Diabetic nephropathy associated with type 2 diabetes mellitus (HCC) ([facility]) Morbid obesity ([facility]/HCC) Morbid obesity Diabetes insipidus ([facility]/HCC) Diabetes insipidus Malignant tumor of sigmoid colon ([facility]/HCC) Malignant neoplasm of sigmoid colon Stage 3a chronic kidney disease (HCC) ([facility]) Stage 3 chronic kidney disease, unspecified whether stage 3a or 3b CKD (HCC) ([facility])- Primary Diabetes insipidus ([facility]) Diabetes insipidus Acquired hypothyroidism ([facility]) Unspecified hypothyroidism 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, unspecified laterality ([facility]) Diabetic nephropathy associated with type 2 diabetes mellitus (HCC) ([facility]) Uncontrolled type 2 diabetes mellitus with hypoglycemia, unspecified hypoglycemia coma status ([facility]) Flu vaccine need Uncontrolled diabetes mellitus with hyperglycemia, with long-term current use of insulin ([facility])- Primary Uncontrolled type 2 diabetes mellitus with hypoglycemia, unspecified hypoglycemia coma status ([facility]) 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 ([facility]) Stage 3a chronic kidney disease (HCC) ([facility]) Flatulence, eructation and gas pain Flatulence, eructation, and gas pain Diabetic autonomic neuropathy associated with type 2 diabetes mellitus ([facility]/HCC)- Primary Type II or unspecified type diabetes mellitus with neurological manifestations, not stated as uncontrolled 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, unspecified laterality ([facility]) 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 ([facility]) Uncontrolled type 2 diabetes mellitus with hypoglycemia without coma ([facility]) 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[facility]) Type II or unspecified type diabetes mellitus without mention of complication, not stated as uncontrolled Chest pain due to myocardial ischemia, unspecified ischemic chest pain type ([facility]) Stage 3a chronic kidney disease (HCC) ([facility])- Primary Vitamin D deficiency Hypothyroidism, unspecified type ([facility]) Morbid (severe) obesity due to excess calories (E66.01) Type 2 diabetes mellitus with diabetic autonomic neuropathy, with long-term current use of insulin ([facility]) Body mass index [BMI] 37.0-37.9, adult (Z68.37) Diabetic nephropathy associated with type 2 diabetes mellitus (HCC) ([facility]) Closed fracture of left foot with delayed healing, subsequent encounter Diabetic nephropathy associated with type 2 diabetes mellitus (HCC) ([facility])- Primary Type 2 diabetes mellitus with diabetic autonomic neuropathy, with long-term current use of insulin ([facility]) Routine general medical examination at health care facility- Primary Routine general medical examination at a health care facility Abnormal glucose tolerance test Impaired glucose tolerance test Benign essential hypertension ([facility]) Essential hypertension, benign Medicare annual wellness visit, subsequent Mixed hyperlipidemia ([facility]) Mixed hyperlipidemia Hypothyroidism, unspecified type ([facility]) 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 ([facility]) Diabetic nephropathy associated with type 2 diabetes mellitus (HCC) ([facility]) Uncontrolled type 2 diabetes mellitus with hypoglycemia, unspecified hypoglycemia coma status ([facility]) Dizziness Dizziness and giddiness Neck pain Cervicalgia Diabetic autonomic neuropathy associated with type 2 diabetes mellitus ([facility])- Primary Type II or unspecified type diabetes mellitus with neurological manifestations, not stated as uncontrolled Restless legs Restless legs syndrome (RLS) Edema, unspecified type Malignant neoplasm of sigmoid colon ([facility]) Malignant neoplasm of sigmoid colon Atherosclerosis of aorta ([facility]) Atherosclerosis of aorta Essential hypertension ([facility]) Unspecified essential hypertension Murmur, cardiac Undiagnosed cardiac murmurs Fall in home, initial encounter- Primary Uncontrolled type 2 diabetes mellitus with hypoglycemia, unspecified hypoglycemia coma status ([facility]) Encounter for vaccination History of COVID-19 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, unspecified laterality ([facility]) Cellulitis of left upper extremity- Primary Routine general medical examination at health care facility- Primary Routine general medical examination at a health care facility Uncontrolled type 2 diabetes mellitus with hypoglycemia, unspecified hypoglycemia coma status ([facility]) Vitamin D deficiency Medicare annual wellness visit, subsequent Essential hypertension ([facility]) Unspecified essential hypertension Type 2 diabetes mellitus with diabetic cataract ([facility]) Type II or unspecified type diabetes mellitus with ophthalmic manifestations, not stated as uncontrolled Morbid (severe) obesity due to excess calories (CMS/HCC) Body mass index (BMI) 35.0-35.9, adult Type 2 diabetes mellitus with unspecified diabetic retinopathy without macular edema (CMS/HCC) Type 2 diabetes mellitus with other specified complication (CMS/HCC) Mixed hyperlipidemia (CMS/HCC) Mixed hyperlipidemia Type 2 diabetes mellitus with diabetic autonomic (poly)neuropathy (CMS/HCC) Type 2 diabetes mellitus with mild nonproliferative diabetic retinopathy without macular edema, unspecified eye (CMS/HCC) Type 2 diabetes mellitus with diabetic chronic kidney disease (CMS/HCC) Chronic kidney disease, stage 3a (HCC) (CMS/HCC) Malignant neoplasm of sigmoid colon (CMS/HCC) Malignant neoplasm of sigmoid colon Type 2 diabetes mellitus with diabetic neuropathy, unspecified (CMS/HCC) skilled nursing (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 of insulin (CMS/HCC) [facility] [place] defect of nose- Primary documented in this encounter [facility] HealthcareEvaluation noteNo assessment information availableMer[facility] Work Phone: Evaluation note* Diagnosis Diabetic autonomic [...] colon Stage 3a chronic kidney disease (HCC) (CMS/HCC) Stage 3 chronic kidney disease, unspecified whether stage 3a or 3b CKD (HCC) (CMS/HCC)- Primary Diabetes insipidus (CMS/HCC) Diabetes insipidus Acquired hypothyroidism (CMS/HCC) Unspecified hypothyroidism 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, unspecified laterality (CMS/HCC) Diabetic nephropathy associated with type 2 diabetes mellitus (HCC) (CMS/HCC) Uncontrolled type 2 diabetes mellitus with hypoglycemia, unspecified hypoglycemia coma status (CMS/HCC) Flu vaccine need Uncontrolled diabetes mellitus with hyperglycemia, with long-term current use of insulin (CMS/HCC)- Primary Uncontrolled type 2 diabetes mellitus with hypoglycemia, unspecified hypoglycemia coma status (CMS/HCC) 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 (CMS/HCC) Stage 3a chronic kidney disease (HCC) (CMS/HCC) Flatulence, eructation and gas pain Flatulence, eructation, and gas pain Diabetic autonomic neuropathy associated with type 2 diabetes mellitus ([facility]/HCC)- Primary Type II or unspecified type diabetes mellitus with neurological manifestations, not stated as uncontrolled 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, unspecified laterality (CMS/HCC) 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 (CMS/HCC) Uncontrolled type 2 diabetes mellitus with hypoglycemia without coma ([facility]) 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) Type II or unspecified type diabetes mellitus without mention of complication, not stated as uncontrolled Chest pain due to myocardial ischemia, unspecified ischemic chest pain type ([facility]) Stage 3a chronic kidney disease (HCC) ([facility])- Primary Vitamin D deficiency Hypothyroidism, unspecified type ([facility]) Morbid (severe) obesity due to excess calories (E66.01) Type 2 diabetes mellitus with diabetic autonomic neuropathy, with long-term current use of insulin ([facility]) Body mass index [BMI] 37.0-37.9, adult (Z68.37) Diabetic nephropathy associated with type 2 diabetes mellitus (HCC) ([facility]) Closed fracture of left foot with delayed healing, subsequent encounter Diabetic nephropathy associated with type 2 diabetes mellitus (HCC) ([facility])- Primary Type 2 diabetes mellitus with diabetic autonomic neuropathy, with long-term current use of insulin ([facility]) Routine general medical examination at health care facility- Primary Routine general medical examination at a health care facility Abnormal glucose tolerance test Impaired glucose tolerance test Benign essential hypertension (CMS/[facility]) Essential hypertension, benign Medicare annual wellness visit, subsequent Mixed hyperlipidemia ([facility]) Mixed hyperlipidemia Hypothyroidism, unspecified type ([facility]) 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 (CMS/HCC) Diabetic nephropathy associated with type 2 diabetes mellitus (HCC) ([facility]) Uncontrolled type 2 diabetes mellitus with hypoglycemia, unspecified hypoglycemia coma status ([facility]) Dizziness Dizziness and giddiness Neck pain Cervicalgia Diabetic autonomic neuropathy associated with type 2 diabetes mellitus ([facility]/HCC)- Primary Type II or unspecified type diabetes mellitus with neurological manifestations, not stated as uncontrolled Restless legs Restless legs syndrome (RLS) Edema, unspecified type Malignant neoplasm of sigmoid colon (CMS/HCC) Malignant neoplasm of sigmoid colon Atherosclerosis of aorta ([facility]/HCC) Atherosclerosis of aorta Essential hypertension ([facility]/HCC) Unspecified essential hypertension Murmur, cardiac Undiagnosed cardiac murmurs Fall in home, initial encounter- Primary Uncontrolled type 2 diabetes mellitus with hypoglycemia, unspecified hypoglycemia coma status ([facility]) Encounter for vaccination History of COVID-19 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, unspecified laterality ([facility]) Cellulitis of left upper extremity- Primary Routine general medical examination at health care facility- Primary Routine general medical examination at a health care facility Uncontrolled type 2 diabetes mellitus with hypoglycemia, unspecified hypoglycemia coma status ([facility]) Vitamin D deficiency Medicare annual wellness visit, subsequent Essential hypertension ([facility]) Unspecified essential hypertension Type 2 diabetes mellitus with diabetic cataract ([facility]) Type II or unspecified type diabetes mellitus with ophthalmic manifestations, not stated as uncontrolled Morbid (severe) obesity due to excess calories ([facility]) Body mass index (BMI) 35.0-35.9, adult Type 2 diabetes mellitus with unspecified diabetic retinopathy without macular edema ([facility]) Type 2 diabetes mellitus with other specified complication Mixed hyperlipidemia ([facility]) Mixed hyperlipidemia Type 2 diabetes mellitus with diabetic autonomic (poly)neuropathy Type 2 diabetes mellitus with mild nonproliferative diabetic retinopathy without macular edema, unspecified eye ([facility]) Type 2 diabetes mellitus with diabetic chronic kidney disease ([facility]) Chronic kidney disease, stage 3a (HCC) ([facility]) Malignant neoplasm of sigmoid colon ([facility]/HCC) Malignant neoplasm of sigmoid colon Type 2 diabetes mellitus with diabetic neuropathy, unspecified ([facility]) skilled nursing (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 of insulin ([facility]) Mohs defect of nose- Primary Basal cell carcinoma (BCC) of skin of nose documented in this encounter [facility] HealthcareEvaluation note* Diagnosis Diabetic autonomic neuropathy associated with type 2 diabetes mellitus ([facility]/HCC)- Primary Type II or unspecified type diabetes mellitus with neurological manifestations, not stated as uncontrolled Edema, unspecified type Degeneration of lumbar intervertebral disc Degeneration of lumbar or lumbosacral intervertebral disc Vitamin D deficiency Diabetic nephropathy associated with type 2 diabetes mellitus (HCC) ([facility]/HCC) Morbid obesity ([facility]/HCC) Morbid obesity Diabetes insipidus ([facility]) Diabetes insipidus Malignant tumor of sigmoid colon (CMS/HCC) Malignant neoplasm of sigmoid colon Stage 3a chronic kidney disease (HCC) ([facility]) Stage 3 chronic kidney disease, unspecified whether stage 3a or 3b CKD ([facility]) ([facility])- Primary Diabetes insipidus ([facility]) Diabetes insipidus Acquired hypothyroidism ([facility]) Unspecified hypothyroidism 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, unspecified laterality ([facility]) Diabetic nephropathy associated with type 2 diabetes mellitus (HCC) ([facility]) Uncontrolled type 2 diabetes mellitus with hypoglycemia, unspecified hypoglycemia coma status ([facility]) Flu vaccine need Uncontrolled diabetes mellitus with hyperglycemia, with long-term current use of insulin ([facility])- Primary Uncontrolled type 2 diabetes mellitus with hypoglycemia, unspecified hypoglycemia coma status ([facility]) 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 ([facility]) Stage 3a chronic kidney disease (HCC) ([facility]) Flatulence, eructation and gas pain Flatulence, eructation, and gas pain Diabetic autonomic neuropathy associated with type 2 diabetes mellitus ([facility])- Primary Type II or unspecified type diabetes mellitus with neurological manifestations, not stated as uncontrolled 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, unspecified laterality ([facility]) 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 ([facility]) Uncontrolled type 2 diabetes mellitus with hypoglycemia without coma ([facility]) 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[facility]) Type II or unspecified type diabetes mellitus without mention of complication, not stated as uncontrolled Chest pain due to myocardial ischemia, unspecified ischemic chest pain type ([facility]) Stage 3a chronic kidney disease (HCC) ([facility])- Primary Vitamin D deficiency Hypothyroidism, unspecified type ([facility]) Morbid (severe) obesity due to excess calories (E66.01) Type 2 diabetes mellitus with diabetic autonomic neuropathy, with long-term current use of insulin ([facility]) Body mass index [BMI] 37.0-37.9, adult (Z68.37) Diabetic nephropathy associated with type 2 diabetes mellitus (HCC) ([facility]) Closed fracture of left foot with delayed healing, subsequent encounter Diabetic nephropathy associated with type 2 diabetes mellitus (HCC) ([facility])- Primary Type 2 diabetes mellitus with diabetic autonomic neuropathy, with long-term current use of insulin ([facility]) Routine general medical examination at health care facility- Primary Routine general medical examination at a health care facility Abnormal glucose tolerance test Impaired glucose tolerance test Benign essential hypertension ([facility]) Essential hypertension, benign Medicare annual wellness visit, subsequent Mixed hyperlipidemia ([facility]) Mixed hyperlipidemia Hypothyroidism, unspecified type ([facility]) 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 ([facility]) Diabetic nephropathy associated with type 2 diabetes mellitus (HCC) ([facility]) Uncontrolled type 2 diabetes mellitus with hypoglycemia, unspecified hypoglycemia coma status ([facility]) Dizziness Dizziness and giddiness Neck pain Cervicalgia Diabetic autonomic neuropathy associated with type 2 diabetes mellitus ([facility])- Primary Type II or unspecified type diabetes mellitus with neurological manifestations, not stated as uncontrolled Restless legs Restless legs syndrome (RLS) Edema, unspecified type Malignant neoplasm of sigmoid colon ([facility]) Malignant neoplasm of sigmoid colon Atherosclerosis of aorta ([facility]) Atherosclerosis of aorta Essential hypertension ([facility]) Unspecified essential hypertension Murmur, cardiac Undiagnosed cardiac murmurs Fall in home, initial encounter- Primary Uncontrolled type 2 diabetes mellitus with hypoglycemia, unspecified hypoglycemia coma status ([facility]) Encounter for vaccination History of COVID-19 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, unspecified laterality ([facility]) Cellulitis of left upper extremity- Primary Routine general medical examination at health care facility- Primary Routine general medical examination at a health care facility Uncontrolled type 2 diabetes mellitus with hypoglycemia, unspecified hypoglycemia coma status ([facility]) Vitamin D deficiency Medicare annual wellness visit, subsequent Essential hypertension ([facility]) Unspecified essential hypertension Type 2 diabetes mellitus with diabetic cataract ([facility]) Type II or unspecified type diabetes mellitus with ophthalmic manifestations, not stated as uncontrolled Morbid (severe) obesity due to excess calories ([facility]) Body mass index (BMI) 35.0-35.9, adult Type 2 diabetes mellitus with unspecified diabetic retinopathy without macular edema ([facility]) Type 2 diabetes mellitus with other specified complication Mixed hyperlipidemia ([facility]) Mixed hyperlipidemia Type 2 diabetes mellitus with diabetic autonomic (poly)neuropathy Type 2 diabetes mellitus with mild nonproliferative diabetic retinopathy without macular edema, unspecified eye ([facility]) Type 2 diabetes mellitus with diabetic chronic kidney disease ([facility]) Chronic kidney disease, stage 3a (HCC) ([facility]) Malignant neoplasm of sigmoid colon ([facility]) Malignant neoplasm of sigmoid colon Type 2 diabetes mellitus with diabetic neuropathy, unspecified ([facility]) skilled nursing (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 of insulin ([facility]) Basal cell carcinoma (BCC) of left side of nose- Primary Uncontrolled type 2 diabetes mellitus with hypoglycemia, unspecified hypoglycemia coma status (CMS/HCC) 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, unspecified laterality (CMS/HCC) Type 2 diabetes mellitus with diabetic chronic kidney disease (CMS/HCC) Chronic kidney disease, stage 3b (HCC) (CMS/HCC) Acquired hypothyroidism (CMS/HCC) Unspecified hypothyroidism documented in this encounter [facility] HealthcareEvaluation note* Diagnosis Diabetic autonomic neuropathy associated with type 2 diabetes mellitus (CMS/HCC)- Primary Type II or unspecified type diabetes mellitus with neurological manifestations, not stated as uncontrolled Edema, unspecified type Degeneration of lumbar intervertebral disc Degeneration of lumbar or lumbosacral intervertebral disc Vitamin D deficiency Diabetic nephropathy associated with type 2 diabetes mellitus (HCC) (CMS/HCC) Morbid obesity ([facility]/HCC) Morbid obesity Diabetes insipidus ([facility]/HCC) Diabetes insipidus Malignant tumor of sigmoid colon (CMS/HCC) Malignant neoplasm of sigmoid colon Stage 3a chronic kidney disease (HCC) ([facility]/HCC) Stage 3 chronic kidney disease, unspecified whether stage 3a or 3b CKD (HCC) ([facility]/HCC)- Primary Diabetes insipidus (CMS/HCC) Diabetes insipidus Acquired hypothyroidism ([facility]/HCC) Unspecified hypothyroidism 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, unspecified laterality (CMS/HCC) Diabetic nephropathy associated with type 2 diabetes mellitus (HCC) ([facility]/HCC) Uncontrolled type 2 diabetes mellitus with hypoglycemia, unspecified hypoglycemia coma status ([facility]/HCC) Flu vaccine need Uncontrolled diabetes mellitus with hyperglycemia, with long-term current use of insulin ([facility])- Primary Uncontrolled type 2 diabetes mellitus with hypoglycemia, unspecified hypoglycemia coma status ([facility]/HCC) 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 (CMS/HCC) Stage 3a chronic kidney disease (HCC) ([facility]/HCC) Flatulence, eructation and gas pain Flatulence, eructation, and gas pain Diabetic autonomic neuropathy associated with type 2 diabetes mellitus ([facility]/HCC)- Primary Type II or unspecified type diabetes mellitus with neurological manifestations, not stated as uncontrolled 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, unspecified laterality ([facility]/HCC) 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 ([facility]/HCC) Uncontrolled type 2 diabetes mellitus with hypoglycemia without coma ([facility]/HCC) 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CMS/HCC) Type II or unspecified type diabetes mellitus without mention of complication, not stated as uncontrolled Chest pain due to myocardial ischemia, unspecified ischemic chest pain type ([facility]) Stage 3a chronic kidney disease (HCC) ([facility])- Primary Vitamin D deficiency Hypothyroidism, unspecified type ([facility]) Morbid (severe) obesity due to excess calories (E66.01) Type 2 diabetes mellitus with diabetic autonomic neuropathy, with long-term current use of insulin ([facility]) Body mass index [BMI] 37.0-37.9, adult (Z68.37) Diabetic nephropathy associated with type 2 diabetes mellitus (HCC) ([facility]) Closed fracture of left foot with delayed healing, subsequent encounter Diabetic nephropathy associated with type 2 diabetes mellitus (HCC) ([facility])- Primary Type 2 diabetes mellitus with diabetic autonomic neuropathy, with long-term current use of insulin ([facility]) Routine general medical examination at health care facility- Primary Routine general medical examination at a health care facility Abnormal glucose tolerance test Impaired glucose tolerance test Benign essential hypertension ([facility]) Essential hypertension, benign Medicare annual wellness visit, subsequent Mixed hyperlipidemia ([facility]) Mixed hyperlipidemia Hypothyroidism, unspecified type ([facility]) 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 ([facility]) Diabetic nephropathy associated with type 2 diabetes mellitus (HCC) ([facility]) Uncontrolled type 2 diabetes mellitus with hypoglycemia, unspecified hypoglycemia coma status ([facility]) Dizziness Dizziness and giddiness Neck pain Cervicalgia Diabetic autonomic neuropathy associated with type 2 diabetes mellitus ([facility])- Primary Type II or unspecified type diabetes mellitus with neurological manifestations, not stated as uncontrolled Restless legs Restless legs syndrome (RLS) Edema, unspecified type Malignant neoplasm of sigmoid colon ([facility]) Malignant neoplasm of sigmoid colon Atherosclerosis of aorta ([facility]) Atherosclerosis of aorta Essential hypertension ([facility]) Unspecified essential hypertension Murmur, cardiac Undiagnosed cardiac murmurs Fall in home, initial encounter- Primary Uncontrolled type 2 diabetes mellitus with hypoglycemia, unspecified hypoglycemia coma status ([facility]) Encounter for vaccination History of COVID-19 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, unspecified laterality ([facility]) Cellulitis of left upper extremity- Primary Routine general medical examination at health care facility- Primary Routine general medical examination at a health care facility Uncontrolled type 2 diabetes mellitus with hypoglycemia, unspecified hypoglycemia coma status ([facility]) Vitamin D deficiency Medicare annual wellness visit, subsequent Essential hypertension ([facility]) Unspecified essential hypertension Type 2 diabetes mellitus with diabetic cataract ([facility]) Type II or unspecified type diabetes mellitus with ophthalmic manifestations, not stated as uncontrolled Morbid (severe) obesity due to excess calories ([facility]) Body mass index (BMI) 35.0-35.9, adult Type 2 diabetes mellitus with unspecified diabetic retinopathy without macular edema ([facility]) Type 2 diabetes mellitus with other specified complication Mixed hyperlipidemia ([facility]) Mixed hyperlipidemia Type 2 diabetes mellitus with diabetic autonomic (poly)neuropathy Type 2 diabetes mellitus with mild nonproliferative diabetic retinopathy without macular edema, unspecified eye ([facility]) Type 2 diabetes mellitus with diabetic chronic kidney disease ([facility]) Chronic kidney disease, stage 3a (HCC) ([facility]) Malignant neoplasm of sigmoid colon ([facility]) Malignant neoplasm of sigmoid colon Type 2 diabetes mellitus with diabetic neuropathy, unspecified ([facility]) skilled nursing (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 of insulin ([facility]) Basal cell carcinoma (BCC) of left side of nose- Primary Uncontrolled type 2 diabetes mellitus with hypoglycemia, unspecified hypoglycemia coma status ([facility]) 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, unspecified laterality ([facility]) Type 2 diabetes mellitus with diabetic chronic kidney disease ([facility]) Chronic kidney disease, stage 3b (HCC) ([facility]) Acquired hypothyroidism ([facility]) Unspecified hypothyroidism Uncontrolled type 2 diabetes mellitus with hypoglycemia, unspecified hypoglycemia coma status ([facility]) documented in this encounter [facility] HealthcareEvaluation note* Diagnosis Diabetic autonomic neuropathy associated with type 2 diabetes mellitus (HCC)- Primary Type II or unspecified type diabetes mellitus with neurological manifestations, not stated as uncontrolled Edema, unspecified type Degeneration of lumbar intervertebral disc Degeneration of lumbar or lumbosacral intervertebral disc Vitamin D deficiency Diabetic nephropathy associated with type 2 diabetes mellitus (HCC) Morbid obesity ([facility]-HCC) Morbid obesity Diabetes insipidus (HCC) Diabetes insipidus 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 Stage 3a chronic kidney disease ([facility]-HCC) Stage 3 chronic kidney disease, unspecified whether stage 3a or 3b CKD ([facility])- Primary Diabetes insipidus (HCC) Diabetes insipidus Acquired [...] kidney disease Stage 3a chronic kidney disease ([facility]) Flatulence, eructation and gas pain Flatulence, eructation, [...] with hypoglycemia without coma (HCC) 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[facility]) Type II or unspecified type diabetes mellitus without mention of complication, not stated as uncontrolled Chest pain due to myocardial ischemia, unspecified ischemic chest pain type Stage 3a chronic kidney disease ([facility])- Primary Vitamin D deficiency Hypothyroidism, unspecified type Morbid (severe) obesity due to excess calories (E66.01) Type 2 diabetes mellitus with diabetic autonomic neuropathy, with long-term current use of insulin ([facility]) Body mass index [BMI] 37.0-37.9, adult (Z68.37) Diabetic nephropathy associated with type 2 diabetes mellitus ([facility]) Closed fracture of left foot with delayed healing, subsequent encounter Diabetic nephropathy associated with type 2 diabetes mellitus ([facility])- Primary Type 2 diabetes mellitus with diabetic autonomic neuropathy, with long-term current use of insulin ([facility]) Routine general medical examination at health care [...] neuropathy associated with type 2 diabetes mellitus ([facility])- Primary Type II or unspecified type diabetes [...] Type 2 diabetes mellitus with diabetic cataract (HCC) Type II or unspecified type diabetes mellitus with ophthalmic manifestations, not stated as uncontrolled Morbid (severe) obesity due to excess calories ([facility]) Body mass index (BMI) 35.0-35.9, adult Type [...] disease (HCC) Chronic kidney disease, stage 3a ([facility]-HCC) 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 Type 2 diabetes mellitus with diabetic neuropathy, unspecified (HCC) 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) Basal cell carcinoma (BCC) of left side of nose- Primary Uncontrolled type 2 diabetes mellitus with hypoglycemia, unspecified hypoglycemia coma status (HCC) 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, unspecified laterality (HCC) Type 2 diabetes mellitus with diabetic chronic kidney disease (HCC) Chronic kidney disease, stage 3b ([facility]) Acquired hypothyroidism Unspecified hypothyroidism Essential hypertension Unspecified essential hypertension documented in this encounter [facility] HealthcareEvaluation note* Diagnosis Diabetic autonomic neuropathy associated with type 2 diabetes mellitus (HCC)- Primary Type II or unspecified type diabetes mellitus with neurological manifestations, not stated as uncontrolled Edema, unspecified type Degeneration of lumbar intervertebral disc Degeneration of lumbar or lumbosacral intervertebral disc Vitamin D deficiency Diabetic nephropathy associated with type 2 diabetes mellitus (HCC) Morbid obesity (CMS-HCC) Morbid obesity Diabetes insipidus (HCC) Diabetes insipidus 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 Stage 3a chronic kidney disease ([facility]) Stage 3 chronic kidney disease, unspecified whether stage 3a or 3b CKD ([facility])- Primary Diabetes insipidus (HCC) Diabetes insipidus Acquired [...] kidney disease Stage 3a chronic kidney disease ([facility]) Flatulence, eructation and gas pain Flatulence, eructation, [...] pain type Stage 3a chronic kidney disease ([facility])- Primary Vitamin D deficiency Hypothyroidism, unspecified type Morbid (severe) obesity due to excess calories (E66.01) Type 2 diabetes mellitus with diabetic autonomic neuropathy, with long-term current use of insulin ([facility]) Body mass index [BMI] 37.0-37.9, adult (Z68.37) Diabetic nephropathy associated with type 2 diabetes mellitus (HCC) Closed fracture of left foot with delayed healing, subsequent encounter Diabetic nephropathy associated with type 2 diabetes mellitus (HCC)- Primary Type 2 diabetes mellitus with diabetic autonomic neuropathy, with long-term current use of insulin ([facility]) Routine general medical examination at health care [...] Type 2 diabetes mellitus with diabetic cataract (HCC) Type II or unspecified type diabetes mellitus with ophthalmic manifestations, not stated as uncontrolled Morbid (severe) obesity due to excess calories ([facility]) Body mass index (BMI) 35.0-35.9, adult Type [...] disease (HCC) Chronic kidney disease, stage 3a ([facility]) 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 Type 2 diabetes mellitus with diabetic neuropathy, unspecified (HCC) 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) Basal cell carcinoma (BCC) of left side of nose- Primary Uncontrolled type 2 diabetes mellitus with hypoglycemia, unspecified hypoglycemia coma status (HCC) 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, unspecified laterality (HCC) Type 2 diabetes mellitus with diabetic chronic kidney disease (HCC) Chronic kidney disease, stage 3b ([facility]) Acquired hypothyroidism Unspecified hypothyroidism Other chest pain- Primary Asthma, unspecified asthma severity, unspecified whether complicated, unspecified whether persistent (HCC) Uncontrolled type 2 diabetes mellitus with hypoglycemia, unspecified hypoglycemia coma status (HCC) documented in this encounter [facility] HealthcareEvaluation note* Diagnosis Encounter to establish care [...] asthma, unspecified asthma severity, unspecified whether persistent ([facility]) Never smoked tobacco Obesity (BMI 30-39.9) History of fall Personal history of fall documented in this encounter [facility] Work Phone: Evaluation note* Diagnosis Diabetic autonomic neuropathy associated with type 2 diabetes mellitus (HCC)- Primary Type II or unspecified type diabetes mellitus with neurological manifestations, not stated as uncontrolled Edema, unspecified type Degeneration of lumbar intervertebral disc Degeneration of lumbar or lumbosacral intervertebral disc Vitamin D deficiency Diabetic nephropathy associated with type 2 diabetes mellitus (HCC) Morbid obesity ([facility]-HCC) Morbid obesity Diabetes insipidus (HCC) Diabetes insipidus 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 Stage 3a chronic kidney disease ([facility]-H[facility]) Stage 3 chronic kidney disease, unspecified whether stage 3a or 3b CKD ([facility]-HCC)- Primary Diabetes insipidus (HCC) Diabetes insipidus Acquired [...] kidney disease Stage 3a chronic kidney disease ([facility]) Flatulence, eructation and gas pain Flatulence, eructation, [...] 2 diabetes mellitus with hypoglycemia without coma ([facility]) 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[facility]) Type II or unspecified type diabetes mellitus without mention of complication, not stated as uncontrolled Chest pain due to myocardial ischemia, unspecified ischemic chest pain type Stage 3a chronic kidney disease ([facility])- Primary Vitamin D deficiency Hypothyroidism, unspecified type Morbid (severe) obesity due to excess calories (E66.01) Type 2 diabetes mellitus with diabetic autonomic neuropathy, with long-term current use of insulin ([facility]) Body mass index [BMI] 37.0-37.9, adult (Z68.37) Diabetic nephropathy associated with type 2 diabetes mellitus ([facility]) Closed fracture of left foot with delayed healing, subsequent encounter Diabetic nephropathy associated with type 2 diabetes mellitus (HCC)- Primary Type 2 diabetes mellitus with diabetic autonomic neuropathy, with long-term current use of insulin ([facility]) Routine general medical examination at health care facility- Primary Routine general medical examination at a the [facility] Abnormal glucose tolerance test Impaired glucose tolerance test Benign essential hypertension Essential hypertension, benign Medicare annual wellness visit, subsequent Mixed hyperlipidemia Mixed hyperlipidemia Hypothyroidism, unspecified type 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) Uncontrolled type 2 diabetes mellitus with hypoglycemia, unspecified hypoglycemia coma status ([facility]) Dizziness Dizziness and giddiness Neck pain Cervicalgia [...] with type 2 diabetes mellitus, unspecified laterality ([facility]) Cellulitis of left upper extremity- Primary Routine general medical examination at health care facility- Primary Routine general medical examination at a health care facility Uncontrolled type 2 diabetes mellitus with hypoglycemia, unspecified hypoglycemia coma status (HCC) Vitamin D deficiency Medicare annual wellness visit, subsequent Essential hypertension Unspecified essential hypertension Type 2 diabetes mellitus with diabetic cataract (HCC) Type II or unspecified type diabetes mellitus with ophthalmic manifestations, not stated as uncontrolled Morbid (severe) obesity due to excess calories ([facility]) Body mass index (BMI) 35.0-35.9, adult Type [...] disease (HCC) Chronic kidney disease, stage 3a ([facility]) 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 Type 2 diabetes mellitus with diabetic neuropathy, unspecified (HCC) 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) Basal cell carcinoma (BCC) of left side of nose- Primary Uncontrolled type 2 diabetes mellitus with hypoglycemia, unspecified hypoglycemia coma status (HCC) 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, unspecified laterality (HCC) Type 2 diabetes mellitus with diabetic chronic kidney disease (HCC) Chronic kidney disease, stage 3b ([facility]) Acquired hypothyroidism Unspecified hypothyroidism Other chest pain- Primary Asthma, unspecified asthma severity, unspecified whether complicated, unspecified whether persistent (HCC) Uncontrolled type 2 diabetes mellitus with hypoglycemia, unspecified hypoglycemia coma status (HCC) Seborrheic keratosis- Primary History of basal cell carcinoma Personal history of other malignant neoplasm of skin Seborrheic keratosis, inflamed Actinic keratosis Milia Sebaceous cyst documented in this encounter [facility] HealthcareEvaluation note* Diagnosis Other chest pain Essential (primary) hypertension [...] Other specified counseling documented in this encounter [facility] Work Phone: Hospital Discharge instructions Additional Instructions No exertional activity Alternate between Tylenol and Motrin for pain May shower in 24 hours, blot wound dry and apply ointment Call the office for any questions or concerns Finish your current course of antibiotic Apply antibiotic ointment to the wound [address] Work [facility]: Summary Purpose Family History No [...] DATE CREATED AUTHOR AUTHOR'S ORGANIZ ATION 08/23/2022 [facility] dical Specialist DATE CREATED AUTHOR AUTHOR'S ORGANIZ ATION 07/24/2024 [facility] DATE CREATED AUTHOR AUTHOR'S ORGANIZ ATION 08/14/2024 [facility] DATE CREATED AUTHOR AUTHOR'S ORGANIZ ATION 12/07/2024 [facility] dical Specialists EPIC DATE CREATED AUTHOR AUTHOR'S ORGANIZ ATION 12/21/2024 [facility] [employer] Teams (unrecognized sec tion and content) Parent Educator Relationship Specialty Start Date End Date Bautista Thayer MD [address] [place] [address] [address] [place] [address] PCP - Devoted 04/24/20 Bautista Thayer MD [address] [place] [address] [place] [address] PCP - General Family Medicine 09/01/22 Parent Educator Relationship Specialty Start Date End Date Bautista Thayer MD [address] [place] [address] [place] [address] PCP - Devoted 04/24/20 Bautista Thayer MD [address] [place] [place] [address] PCP - General Family Medicine 09/01/22 Parent Educator Relationship Specialty Start Date End Date Bautista Thayer MD [address] [place] [place] [address] PCP - Devoted 04/24/20 Bautista Thayer MD [address] [place] [address] PCP - General Family Medicine 09/01/22 Parent Educator Relationship Specialty Start Date End Date Bautista Thayer MD [address] [place] [address] PCP - Devoted 04/24/20 Bautista Thayer MD [address] [place] [place] [address] PCP - General Family Medicine 09/01/22 Parent Educator Relationship Specialty Start Date End Date Bautista Thayer MD [address] [place] [place] [address] PCP - Devoted 04/24/20 04/23/24 Bautista Thayer MD [address] [place] [place] [address] PCP - General Family Medicine 09/01/22 Parent Educator Relationship Specialty Start Date End Date Bautista Thayer MD [address] [place] [address] [place] [address] PCP - Devoted 04/24/20 04/23/24 Bautista Thayer MD [address] [place] [address] [place] [address] PCP - General Family Medicine 09/01/22 Parent Educator Relationship Specialty Start Date End Date Bautista Thayer MD [address] [place] [address] [place] [address] PCP - Devoted 04/24/20 04/23/24 Bautista Thayer MD [address] [place] [address] [place] [address] PCP - General Family Medicine 09/01/22 Parent Educator Relationship Specialty Start Date End Date Bautista Thayer MD [address] [place] [address] [place] [address] PCP - Devoted 04/24/20 04/23/24 Bautista Thayer MD [address] [place] [address] [place] [address] PCP - General Family Medicine 09/01/22 Parent Educator Relationship Specialty Start Date End Date Bautista Thayer MD [address] [place] [address] [place] [address] PCP - Devoted 04/24/20 04/23/24 Bautista Thayer MD [address] [place] [address] [place] [address] PCP - General Family Medicine 09/01/22 Parent Educator Relationship Specialty Start Date End Date Bautista Thayer MD [address] [facility] [address] [place] [address] PCP - General Family Medicine 09/01/22 Parent Educator Relationship Specialty Start Date End Date Bautista Thayer MD [address] [facility] [address] [place] [address] PCP - General Family Medicine 09/01/22 Parent Educator Relationship Specialty Start Date End Date Bautista Thayer MD [address] [facility] [address] [place] [address] PCP - General Family Medicine 09/01/22 Britni Irwin, RN Clinical Advocate Family Medicine 05/31/24 Parent Educator Relationship Specialty Start Date End Date Bautista Thayer MD [address] [facility] [address] [place] [address] PCP - General Family Medicine 09/01/22 Britni Irwin, RN Clinical Advocate Family Medicine 05/31/24 Parent Educator Relationship Specialty Start Date End Date Bautista Thayer MD [address] [facility] [address] [place] [address] PCP - General Family Medicine 09/01/22 Britni Irwin, RN Clinical Advocate Family Medicine 05/31/24 Team Status: Active Member Role Status Taran Thayer MD Primary Care Provider Active Team [...] June 27, 2024 End: June 27, 2024 Parent Educator Relationship Specialty Start Date End Date Bautista Thayer MD [address] [facility] [address] [place] [address] PCP - General Family Medicine 09/01/22 Britni Irwin, RN Clinical Advocate Family Medicine 05/31/24 Vernell Llamas MD [address] [place] [address] Referring Physician Dermatology 07/03/24 Eriberto Hdez DO [address] [place] [address] Otolaryngology 07/03/24 Parent Educator Relationship Specialty Start Date End Date Bautista Thayer MD [address] [facility] [address] [place] [address] PCP - General Family Medicine 09/01/22 Bautista Thayer MD [address] [facility] [address] [place] [address] PCP - Medical [facility] 04/24/2404/23 Vernell Llamas MD [address] [place] [address] Referring Physician Dermatology 07/03/24 Eriberto Hdez DO [address] [place] [address] Otolaryngology 07/03/24 Candice Randle LPN 07/10/24 Parent Educator Relationship Specialty Start Date End Date Bautista Thayer MD [address] [place] [address] [place] [address] PCP - General Family Medicine 09/01/22 Bautista Thayer MD [address] [facility] [address] [place] [address] PCP - Medical [place] [facility] 04/24/2404/23 Vernell Llamas MD [address] [place] [address] Referring Physician Dermatology 07/03/24 Eriberto Hdez DO [address] [place] [address] Otolaryngology 07/03/24 Candice Randle LPN 07/10/24 Parent Educator Relationship Specialty Start Date End Date Bautista Thayer MD [address] [facility] [address] [place] [address] PCP - General Family Medicine 09/01/22 Bautista Thayer MD [address] [facility] [address] [place] [address] PCP - Medical [place] [facility] 04/24/2404/23 Vernell Llamas MD [address] [place] [address] Referring Physician Dermatology 07/03/24 Eriberto Hdez DO [address] [place] [address] Otolaryngology 07/03/24 Candice Randle LPN 07/10/24 Parent Educator Relationship Specialty Start Date End Date Bautista Thayer MD [address] [place] [address] [place] [address] PCP - General Family Medicine 09/01/22 Bautista Thayer MD [address] [place] [address] [place] [address] PCP - Medical [place] 04/24/2404/23 Vernell Llamas MD [address] [place] [address] Referring Physician Dermatology 07/03/24 Eriberto Hdez DO [address] [place] [address] Otolaryngology 07/03/24 Candice Randle LPN 07/10/24 Parent Educator Relationship Specialty Start Date End Date Bautista Thayer MD [address] [facility] [address] [place] [address] PCP - General Family Medicine 09/01/22 Bautista Thayer MD [address] [place] [address] [place] [address] PCP - Medical [place] 04/24/2404/23 Vernell Llamas MD [address] [place] [address] Referring Physician Dermatology 07/03/24 Eriberto Hdez DO [address] [place] [address] Otolaryngology 07/03/24 Candice Randle LPN [address] [facility] [address] [place] [address] 07/10/24 Parent Educator Relationship Specialty Start Date End Date Bautista Thayer MD [address] [facility] [address] [place] [address] PCP - General Family Medicine 09/01/22 Bautista Thayer MD [address] [facility] [address] [place] [address] PCP - Medical [facility] 04/24/2404/23 Vernell Llamas MD [address] [place] [address] [place] [address] Referring Physician Dermatology 07/03/24 Eriberto Hdez DO [address] [place] [address] Otolaryngology 07/03/24 Candice Randle LPN [address] [facility] [address] [place] [address] 07/10/24 Parent Educator Relationship Specialty Start Date End Date Bautista Thayer MD [address] [facility] [address] [place] [address] PCP - General Family Medicine 11/11/24 Parent Educator Relationship Specialty Start Date End Date Bautista Thayer MD [address] [facility] [address] [place] [address] PCP - General Family Medicine 09/01/22 Bautista Thayer MD [address] [place] [address] [place] [address] PCP - Medical [place] 04/24/2404/23 Vernell Llamas MD [address] [place] [address] Referring Physician Dermatology 07/03/24 Eriberto Hdez DO [address] [place] [address] Otolaryngology 07/03/24 Candice Randle LPN [address] [place] [address] 07/10/24 Parent Educator Relationship Specialty Start Date End Date Bautista Thayer MD [address] [place] [address] [place] [address] PCP - General Family Medicine 09/01/22 Bautista Thayer MD [address] [place] [address] [place] [address] PCP - Medical [place] 04/24/2404/23 Vernell Llamas MD [address] [place] [address] Referring Physician Dermatology 07/03/24 Eriberto Hdez DO [address] [place] [address] Otolaryngology 07/03/24 Candice Randle LPN [address] [place] [address] 07/10/24 Parent Educator Relationship Specialty Start Date End Date Bautista Thayer MD [address] [facility] [address] [place] [address] PCP - General Family Medicine 11/11/24 Reason [...] try again. fu 02/13/2024 Contacted [facility] to schedule PT eval for frequent falls [...] pain Specialty Diagnoses / Procedures Referred By Contac t Referred To Contact Diagnoses Encounter to establish care Procedures ECG 12 Lead Nagi Murry MD [address] [facility] [address] [place] [address] Phone: tel: fax: Referral ID Status Reason Start Date Expiration Date V isits Requested Visits Authorized [id number] Authorized 11/21/2024 11/21/2025 1 1 Reason Comments Follow-up Holter monitor resul ts Specialty Diagnoses / Procedures Referred By Contellen t Referred To Contact Cardiology Diagnoses Other chest pain Procedures Follow Up In Cardiology Nagi Murry MD [address] [address] Phone: tel: fax: Nagi Murry MD [address] [address] Phone: tel: fax: Referral ID Status Reason Start Date Expiration Date V isits Requested Visits Authorized [id number] Authorized 11/21/2024 11/21/2025 1 1 Goals (unrecognized [...] BE BASED ON THE PRIMARY CLINICAL RECORDS. [employer] provides no warranty or guarantee of the accuracy or completeness of information in this document.
[2024-12-30 12:18] LABS: Hematocrit 36.8 % (36.0-48.0); Hemoglobin 11.7 g/dL (12.0-16.0); Immature Granulocytes Abs Auto 0.05 10^3/uL (0.00-0.03); Immature Granulocytes Pct Auto 0.6 % (0.0-0.5); Lymphocytes Absolute Auto 1.9 10^3/uL (1.2-3.8); Mean Corpuscular HGB Conc 31.8 g/dL (29.9-35.2); Mean Corpuscular Hemoglobin 29.4 pg (26.7-34.0); Mean Corpuscular Volume 92.5 fL (81.0-99.0); Platelet Count 224 10^3/uL (150-450); Red Blood Count 3.98 10^6/uL (4.20-5.40); White Blood Count 9.0 10^3/uL (4.0-11.0)
[2024-12-30 12:50] LABS: Alanine Aminotransferase 16 U/L (14-59); Albumin Globulin Ratio 1.0; Albumin Level 3.6 g/dL (3.4-5.0); Alkaline Phosphatase 82 U/L (46-116); Anion Gap 13.0; Aspartate Amino Transferase 11 U/L (15-37); Blood Urea Nitrogen 31.0 mg/dL (7.0-18.0); Calcium 9.7 mg/dL (8.5-10.1); Carbon Dioxide 30.3 mmol/L (21.0-32.0); Chloride 105 mmol/L (98-107); Estimated GFR (African America 56 (>=60 mL/min/1.73m^2); Estimated GFR (Non-African Ame 46 (>=60 mL/min/1.73m^2); Globulin 3.6 g/dL; Glucose 223 mg/dL (74-106); Magnesium 1.9 mg/dL (1.8-2.4); Potassium 5.3 mmol/L (3.5-5.1); Sodium 143 mmol/L (136-145); Total Protein 7.2 g/dL (6.4-8.2)
== END 2024-12-30 11:50 | disposition home or self-care (01) ==
PROVIDERS: PCP Family Medicine; Visit Provider Internal Medicine Cardiovascular Disease
DX: I51.89 Other ill-defined heart diseases (principal); I50.31 Acute diastolic (congestive) heart failure
CPT/HCPCS: 36415; 80053; 83735; 85025

== ENCOUNTER 2025-02-05 11:19 | Outpatient (OUT) | payer MEDICARE, SELFPAY ==
--- OUTSIDE RECORDS SUMMARY | 2025-02-05 11:24 | XMS_ITS | Encounter Summary ---
Author Organization [facility] Address [address] [facility] [place] [address] Care Team Providers Care Reporting Consultant Name Role Phone Rio Murray MD Unavailable Rio Murray MD Primary Care Provider Britni Irwin RN Unavailable [phone] Benito Llamas MD Unavailable Unavailable Eriberto Hdez DO Unavailable [phone] Candice Randle LPN Unavailable Rio Murray MD Unavailable Encounter Details Date Type Department Care Team (Late st Contact Info) Description 04/03/2023 Abstract [facility] [place] [facility] [address] [facility] [address] [place] [address] Rio Murray MD [address] [facility] [address] [place], [place] [id number] Social History Tobacco Use Types Packs/Day Years [...] or ex-partner? No 11/01/2022 Social Connection and Isolation Panel Answer Date Recorded In a typical week, how many times do you talk on the phone with family, friends, or neighbors? More than three times a week 11/01/2022 How often do you get togethe r with friends or relatives? More than three times a week 11/01/2022 How often do you attend chur or mandaeism services? More than 4 times per year 11/01/2022 Do you belong to any clubs o r organizations such as scientologist groups, unions, fraternal or athletic groups, or [...] and heating? Not hard at all 11/01/2022 [facility] - Occupational Stress [...] place to sleep or slept in a longterm (including now)? No 11/01/2022 Comments Unknown Sex and Gender Information Value Date Recorded Sex Assigned at Not on file Legal Sex Female 6:59 PM EDT Gender Identity Not on file Sexual Orientation Not on file documented as of this encounter Plan of Treatment Upcoming Encounters Date Type Department Care Team (Late st Contact Info) Description 02/10/2025 10:30 AM EDT [facility] [address] [place] [address] [place] [id number] Rio Murray MD [address] [place] [address] 06/05/2025 1:50 PM EST [facility] [address] [place] [address] [place] [address] Zaina Leonardo MD [address] [place] [place] [address] documented as of this encounter Visit Diagnoses Not on filedocumented in this encounter Care Teams Reporting Consultant Relationship Specialty Start Date End Date Rio Murray MD [address] [facility] [address] [place] [address] PCP - Devoted 04/24/20 04/23/24 Rio Murray MD [address] [facility] [address] [place] [address] PCP - General Family Medicine 09/01/22 Rio Murray MD [address] [facility] [address] [place] [address] PCP - Medical [facility] 04/24/2404/23 Britni Irwin, RN [address] [place] [address] Clinical Advocate Family Medicine 05/31/24 07/10/24 Benito Llamas MD [address] [place] [address] Referring Physician Dermatology 07/03/24 Eriberto Hdez, [address] [place] [address] Otolaryngology 07/03/24 Candice Randle LPN [address] [facility] [address] [place] [address] 07/10/24 documented as of this encounter
--- OUTSIDE RECORDS SUMMARY | 2025-02-05 11:24 | XMS_ITS | Encounter Summary ---
Author Organization [facility] Address [address] [facility] [place] [address] Care Team Providers Care Paper Stacker Name Role Phone Rio Murray MD Unavailable Rio Murray MD Primary Care Provider Britni Irwin RN Unavailable [phone] Benito Llamas MD Unavailable Unavailable Eriberto Hdez DO Unavailable [phone] Candice Randle LPN Unavailable Rio Murray MD Unavailable Encounter Details Date Type Department Care Team (Late st Contact Info) Description 04/03/2023 Abstract [facility] [place] [facility] [address] [facility] 110 [place] [address] Rio Murray MD [address] [facility] 110 [place], [place] [id number] Social History Tobacco Use Types Packs/Day Years [...] How often do you attend chur or rastafarian services? More than 4 times per year 11/01/2022 Do you belong to any clubs o r organizations such as voodoo groups, unions, fraternal or athletic groups, or [...] and heating? Not hard at all 11/01/2022 [facility] of Occupat ional Health - Occupational Stress [...] [facility] [address] [place] [address] [place] [address] Rio Murray MD [address] [place] [address] [place] [address] 06/05/2025 1:50 PM EST Office Visit [facility] [address] [place] [address] [place] [address] Zaina Leonardo MD [address] [place] [address] [place] [address] documented as of this encounter Visit Diagnoses Not on filedocumented in this encounter Care Teams Paper Stacker Relationship Specialty Start Date End Date Rio Murray MD [address] [facility] 110 [place] [address] PCP - Devoted 04/24/20 04/23/24 Rio Murray MD [address] [facility] 110 [place] [address] PCP - General Family Medicine 09/01/22 Rio Murray MD [address] [facility] 110 [place] [address] PCP - Medical [facility] 04/24/2404/23 Britni Irwin, RN [address] [place] [address] Clinical [facility] Family [facility] 05/31/24 07/10/24 Benito Llamas MD [address] [place] [address] Referring Physician Dermatology 07/03/24 Eriberto Hdez, [address] [place] [address] Otolaryngology 07/03/24 Candice Randle LPN [address] [facility] 110 [place] [address] 07/10/24 documented as of this encounter
--- OUTSIDE RECORDS SUMMARY | 2025-02-05 11:24 | XMS_ITS | Encounter Summary ---
Author Organization [facility] Address [address] [facility] [place] [address] Care Team Providers Care Level Designer Name Role Phone Rio Murray MD Primary Care Provider [phone] Britni Irwin RN Unavailable [phone] Benito Llamas MD Unavailable Unavailable Eriberto Hdez DO Unavailable Candice Randle LPN Unavailable Rio Murray MD Unavailable Encounter Details Date Type Department Care Team (Late st Contact Info) Description 07/02/2024 Abstract [facility] [place] [facility] 112 [facility] 110 [place] [address] Rio Murray MD 112 [facility] 110 [place] [address] Social History Tobacco Use Types Packs/Day Years [...] 11/01/2022 How often do you attend [facility] or latter-day services? More than 4 times per year 11/01/2022 Do you belong to any clubs o r organizations such as hinduism groups, unions, fraternal or athletic groups, or [...] Recorded Patient Health Questionnaire-2 Score 0 05/16/2024 [facility] of Occupat ional Health - Occupational Stress [...] Visit [facility] [place] [facility] [address] [facility] 110 [place] [address] iRo Murray MD [address] [facility] 110 [place] [address] 06/05/2025 1:50 PM EST Office Visit [facility] [address] [place] [address] [place] [address] Zaina Leonardo MD [address] [place] [address] [place], [place] [address] documented as of this encounter Visit Diagnoses Not on filedocumented in this encounter Care Teams Level Designer Relationship Specialty Start Date End Date Rio Murray MD [address] [facility] 110 [place] [address] PCP - General Family Medicine 09/01/22 Rio Murray MD [address] [facility] 110 [place] [address] PCP - Medical [facility] 04/24/2404/23 Britni Irwin, RN [address] [place] [address] Clinical Advocate Family Medicine 05/31/24 07/10/24 Benito Llamas MD [address] [place] [address] Referring Physician Dermatology 07/03/24 Eriberto Hdez DO [address] [address] Otolaryngology 07/03/24 Candice Randle LPN [address] [facility] 110 [place] [address] 07/10/24 documented as of this encounter
--- OUTSIDE RECORDS SUMMARY | 2025-02-05 11:24 | XMS_ITS | Encounter Summary ---
Author Organization [facility] Address [address] [facility] [place] [address] Care Team Providers Care Sourcing Analyst Name Role Phone Rio Murray MD Unavailable Rio Murray MD Primary Care Provider [phone] Britni Irwin RN Unavailable Benito Llamas MD Unavailable Unavailable Eriberto Hdez DO Unavailable Candice Randle LPN Unavailable Rio Murray MD Unavailable Encounter Details Date Type Department Care Team (Late st Contact Info) Description 04/03/2023 Abstract [facility] [place] [facility] [address] [facility] 110 [place] [address] Rio Murray MD [address] [facility] 110 [place], [place] [address] Social History Tobacco Use Types Packs/Day Years [...] How often do you attend chur or jain services? More than 4 times per year 11/01/2022 Do you belong to any clubs o r organizations such as protestant groups, unions, fraternal or athletic groups, or [...] and heating? Not hard at all 11/01/2022 [facility] [place] of Occupat ional Health - Occupational Stress [...] [facility] [address] [place] [address] [place] [address] Rio Murray MD [address] [place] [address] [place] [address] 06/05/2025 1:50 PM EST Office Visit [facility] [address] [place] [address] [place] [address] Zaina Leonardo MD [address] [place] [address] [place] [address] documented as of this encounter Visit Diagnoses Not on filedocumented in this encounter Care Teams Sourcing Analyst Relationship Specialty Start Date End Date Rio Murray MD [address] [facility] 110 [place] [address] PCP - Devoted 04/24/20 04/23/24 Rio Murray MD [address] [facility] 110 [place] [address] PCP - General Family Medicine 09/01/22 Rio Murray MD [address] [facility] 110 [place] [address] PCP - Medical [facility] 04/24/2404/23 Britni Irwin, RN [address] [place] [address] Clinical Advocate Family Medicine 05/31/24 07/10/24 Benito Llamas MD [address] [place] [address] Referring Physician Dermatology 07/03/24 Eriberto Hdez, [address] [place] [address] Otolaryngology 07/03/24 Candice Randle LPN [address] [facility] 110 [place] [address] 07/10/24 documented as of this encounter
--- OUTSIDE RECORDS SUMMARY | 2025-02-05 11:24 | XMS_ITS | Encounter Summary ---
Author Organization [facility] Address [address] [facility] [place] [address] Care Team Providers Care Revenue Settlements Administrator Name Role Phone Rio Murray MD Primary Care Provider [phone] Britni Irwin RN Unavailable Benito Llamas MD Unavailable Unavailable Eriberto Hdez DO Unavailable Candice Randle LPN Unavailable Rio Murray MD Unavailable Encounter Details Date Type Department Care Team (Late st Contact Info) Description 06/24/2024 Abstract [facility] [place] [facility] 112 [facility] 110 [place] [address] Rio Murray MD 112 [facility] 110 [place] [address] Social History Tobacco Use Types Packs/Day Years [...] week 11/01/2022 How often do you attend [facility] or pentecostal services? More than 4 times per year 11/01/2022 Do you belong to any clubs o r organizations such as religion groups, unions, fraternal or athletic groups, or [...] Recorded Patient Health Questionnaire-2 Score 0 05/16/2024 [facility] of Occupat ional Health - [...] Visit [facility] [place] [facility] [address] [facility] 110 [place] [address] Rio Murray MD [address] [facility] 110 [place] [address] 06/05/2025 1:50 PM EST Office Visit [facility] [address] [place] [address] [place] [address] Zaina Leonardo MD [address] [place] [address] [place], [place] [address] documented as of this encounter Visit Diagnoses Not on filedocumented in this encounter Care Teams Revenue Settlements Administrator Relationship Specialty Start Date End Date Rio Murray MD [address] [facility] 110 [place] [address] PCP - General Family Medicine 09/01/22 Rio Murray MD [address] [facility] 110 [place] [address] PCP - Medical [facility] 04/24/2404/23 Britni Irwin, RN [address] [place] [address] Clinical Advocate Family Medicine 05/31/24 07/10/24 Benito Llamas MD [address] [place] [address] Referring Physician Dermatology 07/03/24 Eriberto Hdez DO [address] [place] [address] Otolaryngology 07/03/24 Candice Randle LPN [address] [facility] 110 [place] [address] 07/10/24 documented as of this encounter
--- OUTSIDE RECORDS SUMMARY | 2025-02-05 11:24 | XMS_ITS | Encounter Summary ---
Author Organization [facility] Address [address] [facility] [place] [address] Care Team Providers Care Spanish Linguist Name Role Phone Rio Murray MD Unavailable Rio Murray MD Primary Care Provider [phone] Britni Irwin RN Unavailable Benito Llamas MD Unavailable Unavailable Eriberto Hdez DO Unavailable Candice Randle LPN Unavailable Rio Murray MD Unavailable Encounter Details Date Type Department Care Team (Late st Contact Info) Description 04/03/2023 Abstract [facility] [place] [facility] [address] [facility] 110 [place] [address] Rio Murray MD [address] [facility] 110 [place], [place] [address] Social History Tobacco Use Types Packs/Day Years [...] How often do you attend chur or scientologist services? More than 4 times per year 11/01/2022 Do you belong to any clubs o r organizations such as pentecostal groups, unions, fraternal or athletic groups, or [...] and heating? Not hard at all 11/01/2022 [facility] of Occupat ional Health - Occupational Stress [...] [facility] [address] [place] [address] [place] [address] Rio Murray MD [address] [place] [address] [place] [address] 06/05/2025 1:50 PM EST Office Visit [facility] [address] [place] [address] [place] [address] Zaina Leonardo MD [address] [place] [address] [place] [address] documented as of this encounter Visit Diagnoses Not on filedocumented in this encounter Care Teams Spanish Linguist Relationship Specialty Start Date End Date Rio Murray MD [address] [facility] 110 [place] [address] PCP - Devoted 04/24/20 04/23/24 Rio Murray MD [address] [facility] 110 [place] [address] PCP - General Family Medicine 09/01/22 Rio Murray MD [address] [facility] 110 [place] [address] PCP - Medical [facility] 04/24/2404/23 Britni Irwin, RN [address] [place] [address] Clinical Advocate Family Medicine 05/31/24 07/10/24 Benito Llamas MD [address] [place] [address] Referring Physician Dermatology 07/03/24 Eriberto Hdez, [address] [place] [address] Otolaryngology 07/03/24 Candice Randle LPN [address] [facility] 110 [place] [address] 07/10/24 documented as of this encounter
--- OUTSIDE RECORDS SUMMARY | 2025-02-05 11:24 | XMS_ITS | Encounter Summary ---
Author Organization [facility] Address [address] [place] [address] Care Team Providers Care I&C Technician Name Role Phone Rio Murray MD Unavailable Rio Murray MD Primary Care Provider Britni Irwin RN Unavailable [phone] Benito Llamas MD Unavailable Unavailable Eriberto Hdez Grace DO Unavailable Candice Randle LPN Unavailable Rio Murray MD Unavailable Encounter Details Date Type Department Care Team (Late st Contact Info) Description 04/03/2023 Orders Only [facility] [place] [facility] [address] [place] [address] [place] [address] A, Unknown Practice [address] [place] [address] Social History Tobacco Use Types [...] often do you attend chur ch or cheondoism services? More than 4 times per year [...] and heating? Not hard at all 11/01/2022 [facility] of Occupat ional Health - Occupational [...] [facility] [place] [facility] [address] [facility] 110 [place] [address] Rio Murray MD [address] [place] [address] [place] [address] 06/05/2025 1:50 PM EST Office Visit [facility] [address] [place] [address] [place] [address] Zaina Leonardo MD [address] [place] [address] [place] [address] documented as of this encounter Procedures Procedure [...] on filedocumented in this encounter Care Teams I&C Technician Relationship Specialty Start Date End Date Rio Murray MD [address] [facility] 110 [place] [address] PCP - Devoted 04/24/20 04/23/24 Rio Murray MD [address] [facility] 110 [place] [address] PCP - General Family Medicine 09/01/22 Rio Murray MD [address] [facility] 110 [place] [address] PCP - Medical [facility] 04/24/2404/23 Britni Irwin, RN [address] [place] [address] Clinical Advocate Family Medicine 05/31/24 07/10/24 Benito Llamas MD [address] [place] [address] Referring Physician Dermatology 07/03/24 Eriberto Hdez DO [address] [place] [address] Otolaryngology 07/03/24 Candice Randle LPN [address] [address] 07/10/24 documented as of this encounter
--- OUTSIDE RECORDS SUMMARY | 2025-02-05 11:24 | XMS_ITS | Encounter Summary ---
Author Organization [facility] Address [address] [facility] [place] [address] Care Team Providers Care Business Intelligence Etl Developer Name Role Phone Rio Murray MD Primary Care Provider [phone] Britni Irwin RN Unavailable [phone] Benito Llamas MD Unavailable Unavailable Eriberto Hdez DO Unavailable Candice Randle LPN Unavailable Rio Murray MD Unavailable Encounter Details Date Type Department Care Team (Late st Contact Info) Description 06/28/2024 Abstract [facility] [place] [facility] 112 [facility] 110 [place] [address] Rio Murray MD 112 [facility] 110 [place] [address] Social History Tobacco Use Types Packs/Day Years [...] How often do you attend [facility] or taoism services? More than 4 times per year [...] Recorded Patient Health Questionnaire-2 Score 0 05/16/2024 [facility] of Occupat ional Health - Occupational [...] Visit [facility] [place] [facility] [address] [facility] 110 [place] [address] Rio Murray MD [address] [facility] 110 [place] [address] 06/05/2025 1:50 PM EST Office Visit [facility] [address] [place] [place] [address] Zaina Leonardo MD [address] [place] [address] [place], [place] [address] documented as of this encounter Visit Diagnoses Not on filedocumented in this encounter Care Teams Business Intelligence Etl Developer Relationship Specialty Start Date End Date Rio Murray MD [address] [facility] 110 [place] [address] PCP - General Family Medicine 09/01/22 Rio Murray MD [address] [facility] 110 [place] [address] PCP - Medical [facility] 04/24/2404/23 Britni Irwin, RN [address] [place] [address] Clinical Advocate Family Medicine 05/31/24 07/10/24 Benito Llamas MD [address] [place] [address] Referring Physician Dermatology 07/03/24 Eriberto Hdez DO [address] [address] Otolaryngology 07/03/24 Candice Randle LPN [address] [facility] 110 [place] [address] 07/10/24 documented as of this encounter
--- OUTSIDE RECORDS SUMMARY | 2025-02-05 11:24 | XMS_ITS | Encounter Summary ---
Author Organization [facility] Address [address] [place] [address] Care Team Providers Care Materials Intern Name Role Phone Rio Murray MD Primary Care Provider Britni Irwin RN Unavailable Benito Llamas MD Unavailable Unavailable Eriberto Hdez Grace DO Unavailable Candice Randle LPN Unavailable Rio Murray MD Unavailable Encounter Details Date Type Department Care Team (Late st Contact Info) Description 06/24/2024 External Result Encounter NOMS External Department Unsolicited Korey Peacock, DO [address] [place] [address] Social History Tobacco Use Types Packs/Day Years [...] 11/01/2022 How often do you attend [facility] or taoist services? More than 4 times per year 11/01/2022 Do you belong to any clubs o r organizations such as mosque groups, unions, fraternal or athletic groups, or [...] Recorded Patient Health Questionnaire-2 Score 0 05/16/2024 [facility] - Occupational Stress Questionnaire Answer Date [...] Visit [facility] [place] [facility] [address] [facility] [address] [place] [address] Rio Murray MD 112 [facility] 110 [place] [address] 06/05/2025 1:50 PM EST Office Visit [facility] [address] [place] [place] [address] Zaina Leonardo MD [address] [place] [address] documented as of this encounter Procedures Procedure Name Priority Date/Time Associated Diagnosis Comments ECG 12-LEAD 06/24/2024 10:16 AM EST documented in this encounter Results * ECG 12 lead (06/24/2024 10:16 AM EST) 06/24/2024 10:1 6 AM EST Narrative [facility] - 06/24/2024 6:35 PM EST [facility] Main [place] [id number] Electrocardiograph Report Signed Patient: Willie Gonzalez MR#: [id number] 6 : 1940 Acct:[id number] Age/Sex: 84 / F ADM Date: 06/24/24 Loc: Room: Type: [facility] Attending Dr: Korey Peacock DO Ordering Provider: [...] Otherwise normal ECG Confirmed by Jaylene Betancourt ([id number]) on 06/24/2024 6:34:53 PM Referred By: Electronically Signed By: Jaylene Betancourt Transcribed By: MUS Signed By Jaylene Betancourt MD [id number] Procedure Note Jaylene Betancourt MD - 06/24/[address] [address] Electrocardiograph Report Signed Patient: Willie Gonzalez LMR#: [id number] 6 : 1940cct:[id number] Age/Sex: 84 / FADM Date: 06/24/24 Loc: PS Room:Type: [facility] Attending Dr: Korey Peacock DO Ordering Provider: [...] Otherwise normal ECG Confirmed by Jaylene Betancourt ([id number]) on 06/24/2024 6:34:53 PM Referred By: Electronically Signed By: Jaylene Betancourt Transcribed By: MUS Signed By Jaylene Betancourt MD 5 [id number] us Korey Peacock DO ECG ORDERABLES Final Resul t Performing Organization Address City/State/[facility] Co de Phone Number [address] [address], documented in this encounter Visit Diagnoses Not on filedocumented in this encounter Care Teams Materials Intern Relationship Specialty Start Date End Date Rio Murray MD [address] [facility] 110 [place] [address] PCP - General Family Medicine 09/01/22 Rio Murray MD [address] [facility] 110 [place] [address] PCP - Medical [facility] 04/24/2404/23 Britni Irwin, LINO [address] [facility] [place] [address] Clinical Advocate Family Medicine 05/31/24 07/10/24 Benito Llamas MD [address] [place] [address] Referring Physician Dermatology 07/03/24 Eriberto Hdez, [address] [place] [address] Otolaryngology 07/03/24 Candice Randle LPN [address] [facility] 110 [place], [place] [address] 07/10/24 documented as of this encounter
--- OUTSIDE RECORDS SUMMARY | 2025-02-05 11:24 | XMS_ITS | Encounter Summary ---
Author Organization [facility] Address [address] [place] [address] Phone Care Team Providers Care Milking Machine Mechanic Name Role Phone Rio Murray MD Primary Care Provider [phone] Encounter Details Date Type Department Care Team (Late st Contact Info) Description 11/26/2024 Scanned Document [facility] [address] [place] [id number] Scanning, Generic Provider Social History Tobacco Use [...] Care Team (Late st Contact Info) Description 02/13/2025 10:45 AM EDT Office Visit [facility] [address] [facility] 250 [place] [address] Nagi Mcgill MD 917 [facility] 130 [place] [address] documented as of this encounter Procedures Procedure [...] documented as of this encounter Care Teams Milking Machine Mechanic Relationship Specialty Start Date End Date Rio Murray MD 112 [place] [address] PCP - General Family Medicine 11/11/24 documented as of this encounter
--- OUTSIDE RECORDS SUMMARY | 2025-02-05 11:25 | XMS_ITS | Encounter Summary ---
Author Organization [facility] Address [address] [place] [address] Phone Care Team Providers Care Caramel Cutter Hand Name Role Phone Rio Murray MD Primary Care Provider [phone] Encounter Details Date Type Department Care Team (Late st Contact Info) Description 12/30/2024 Scanned Document [facility] [place] [address] [place] [phone] Scanning, Generic Provider Social History Tobacco Use [...] on file documented as of this encounter Functional Status * BP Answer Date of Assessment Author 126/54 01/02/2025 1:42 PM EDT Luisana Moon LPN * Pulse Answer Date of Assessment Author 70 01/02/2025 1:42 PM EDT Luisana Moon LPN * Communicable Disease Screening Question Answer Date of Assessment Author Do you have any of the follo wing new or worsening symptoms? None of these 01/02/2025 1:07 PM EDT Grace Strauss documented as of this encounter Plan of Treatment Upcoming Encounters Date Type Department Care Team (Late st Contact Info) Description 02/13/2025 10:45 AM EDT Office Visit [place] [address] [phone] Nagi Mcgill MD [address] [facility] 130 [place] [address] documented as of this encounter Procedures Procedure Name Priority Date/Time Associated Diagnosis Comments OUTSIDE LAB SCAN 12/30/2024 documented in this encounter Results * OUTSIDE LAB SCAN (12/30/2024) Narrative 12/30/2024 Ordered by an unspecified provider. us Generic Provider Scanning OUTSIDE SCAN Final Result documented in this encounter Visit Diagnoses Not on filedocumented in this encounter Additional Health Concerns Assessment Noted Time A fall risk assessment has been complete d for the patient 11/21/2024 11:00 AM EDT documented as of this encounter Care Teams Caramel Cutter Hand Relationship Specialty Start Date End Date Rio Murray MD [address] [place] [address] [address] [place] [address] PCP - General Family Medicine 11/11/24 documented as of this encounter
--- OUTSIDE RECORDS SUMMARY | 2025-02-05 11:25 | XMS_ITS | Clinical Summary ---
Author Organization [facility] Address [address] [place] [address] Phone Care Team Providers Care Television Mechanic Name Role Phone Rio Murray MD Primary Care Provider [phone] Allergies Active Allergy Reactions Criticality Noted Date Comments Aspirin GI Upset Medium 10/18/2022 Other Reaction(s): makes her stomach burn Medications albuterol 90 mcg/actuation inhaler Inhale 2 puffs every 6 hours if needed for shortness of breath. 5 Active Toujeo SoloStar U-300 Insulin 300 unit/mL (1.5 mL) pen Inject 33 Units under the skin once daily in the evening. Take with meals. 5 10/25/19 26 Active ergocalciferol (Vitamin D-2) 1250 mcg (50,000 units) capsule Take 1 capsule (1.25 mg) by mouth 1 (one) time per week. 3 Active levothyroxine (Synthroid, Levoxyl) 50 mcg tablet Take 1 tablet (50 mcg) by mouth once daily in the morning. Take before meals. Take on an empty stomach 5 Active baclofen (Lioresal) 10 mg tablet TAKE 1 TABLET BY MOUTH WITH FOOD or milk THREE TIMES DAILY 3 Active magnesium oxide (Mag-Ox) 400 mg tabletIndications: Murmur, cardiac Take 1 tablet (400 mg) by mouth 2 times a day. 180 tablet 3 5 12/20/19 26 Active losartan (Cozaar) 25 mg tabletIndications: Essential (primary) hypertension Take 1 tablet (25 mg) by mouth 2 times a day. 180 tablet 3 5 12/20/19 Active furosemide (Lasix) 40 mg tabletIndications: Essential (primary) hypertension Take 1 tablet (40 mg) by mouth once daily in the morning. Take before meals. 90 tablet 3 5 12/20/19 Active rosuvastatin (Crestor) 10 mg tabletIndications: Mixed hyperlipidemia Take 1 tablet (10 mg) by mouth once daily. 90 tablet 3 5 12/20/19 Active insulin lispro-aabc (Lyumjev KwikPen U-100 Insulin) 100 unit/mL insulin pen Inject 8 Units under the skin 2 times a day. Take as directed per insulin instructions. Active Active Problems Problem Noted Date Diagnosed Date Holter monitor, abnormal 01/02/2025 Second degree heart block 01/02/2025 SSS (sick sinus syndrome) 01/02/2025 NSVT (nonsustained ventricular tachycardia) 12/23 Mixed hyperlipidemia 12/19/2024 Other chest pain 11/21/2024 Never smoked tobacco 11/21/2024 History of lung cancer 11/21/2024 History of colon cancer 11/21/2024 Essential (primary) hypertension 11/21/2024 Murmur, cardiac 11/21/2024 Morbid obesity with body mass index (BMI) of 40. 0 or higher 11/21/2024 Type 2 diabetes mellitus wit h chronic kidney disease, with long-term current use of insulin 11/21/2024 Localized edema 11/21/2024 LVH (left ventricular hypertrophy) 11/21/2024 Biatrial enlargement 11/21/2024 Diastolic dysfunction 11/21/2024 Mitral regurgitation 11/21/2024 Tricuspid regurgitation 11/21/2024 Hypothyroid 11/21/2024 Uncomplicated asthma 11/21/2024 Dizziness and giddiness 11/21/2024 Near syncope 11/21/2024 Orthopnea 11/21/2024 Fatigue 11/21/2024 Blurry vision 11/21/2024 Encounter to discuss test results 11/21/2024 History of fall 11/21/2024 Acute diastolic heart failure 11/21/2024 Encounters Date Type Department Care Team Description 01/28/2025 Orders Only [facility] [address] [employer] [place] [address] Scanning, Generic Provider 01/02/2025 1:15 PM EDT Office Visit [address] [phone] Nagi Mcgill MD Holter monitor, abnormal (Primary Dx); Essential (primary) hypertension; Murmur, cardiac; LVH (left ventricular hypertrophy); Diastolic dysfunction; Chronic fatigue; Dizziness and giddiness; Near syncope; Acute diastolic heart failure (Multi); Mixed hyperlipidemia; Hypothyroidism, unspecified type; Localized edema; Encounter to discuss test results; Type 2 diabetes mellitus with stage 3 chronic kidney disease, with long-term current use of insulin, unspecified whether stage 3a or 3b CKD (Multi); Never smoked tobacco; Morbid obesity with body mass index (BMI) of 40.0 or higher ([facility]); Second degree heart block; SSS (sick sinus syndrome) (Multi); NSVT (nonsustained ventricular tachycardia) (Multi) Discharge Disposition: Home 01/02/2025 Travel 12/30/2024 Scanned Document [facility] [address] [employer] [place] [address] Scanning, Generic Provider 12/20/[address] [address] Luisana Moon LPN 12/19/2024 1:30 PM EDT Office Visit [address] [address] Nagi Mcgill MD Other chest pain; Essential (primary) hypertension; Murmur, cardiac; LVH (left ventricular hypertrophy); Diastolic dysfunction; Mitral valve insufficiency, unspecified etiology; Tricuspid valve insufficiency, unspecified etiology; Acute diastolic heart failure (Multi); Type 2 diabetes mellitus with stage 3 chronic kidney disease, with long-term current use of insulin, unspecified whether stage 3a or 3b CKD (Multi); Mixed hyperlipidemia; Hypothyroidism, unspecified type; Localized edema; Dizziness and giddiness; Never smoked tobacco; Morbid obesity with body mass index (BMI) of 40.0 or higher ([facility]); History of fall; Encounter to discuss test results Discharge Disposition: Home 12/19/2024 Travel 11/26/2024 Scanned Document [facility] [address] [place] [address] Scanning, Generic Provider 11/25/2024 10:00 AM EDT Ancillary Procedure [address] [address] Near syncope; Dizziness and giddiness 11/25/2024 Travel 11/21/2024 10:30 AM EDT Office Visit [address] [address] Nagi Mcgill MD Encounter to [...] fatigue; Blurry vision; Orthopnea; Acute diastolic heart failure (Multi); Mitral valve insufficiency, unspecified etiology; Type 2 diabetes mellitus with diabetic neuropathy, with long-term current use of insulin (Multi); Tricuspid valve insufficiency, unspecified etiology; Hypothyroidism, unspecified type; Uncomplicated asthma, unspecified asthma severity, unspecified whether persistent ([facility]); Never smoked tobacco; Obesity (BMI 30-39.9); History of fall 11/21/2024 Travel 11/11/[address] [address] Madhavi Rose MA 11/11/2024 Scanned Document [facility] [address] [place] [address] Scanning, Generic Provider from Last 3 Months [...] Sign Reading Time Taken Comments Blood Pressure 126/54 01/02/2025 1:42 PM EDT Pulse 70 01/02/2025 1:42 PM EDT Temperature - - Respiratory Rate - - Oxygen Saturation - - Inhaled Oxygen Concentration - - Weight 80.7 kg (178 lb) 01/02/2025 1:42 PM EDT Height 144.8 cm (4' 9 ) 01/02/2025 1:42 PM EDT Body Mass Index 38.52 01/02/2025 1:42 PM EDT Plan of Treatment Upcoming Encounters Date Type Department Care Team (Late st Contact Info) Description 02/13/2025 10:45 AM EDT Office Visit [facility] [address] [facility] [address] [place] [address] Nagi Mcgill MD [address] [facility] [address] [place] [address] Health Maintenance Due Date Last Done Comments [...] Population) (1 - 1-dose 75+ series) 02/16/2016 Influenza Vaccine (#1) 2024 , 01/24/2023, 02/14/2022 COVID-19 Vaccine (2 - 2024-2 6 season) 2024 05/24/2021 Pneumococcal Vaccine Completed 03/05/2015, 03/08/2011 Diabetes: Urine [...] Procedure Name Priority Date/Time Associated Diagnosis Comments HOLTER AND CARDIAC EVENT MONITOR - ONBASE SCAN 01/28/2025 ECG 12-LEAD Routine 01/02/2025 1:15 PM EDT Murmur, cardiac Near syncope Acute diastolic heart failure (Multi) OUTSIDE LAB SCAN 12/30/2024 OUTSIDE LAB SCAN 11/26/2024 OUTSIDE LAB SCAN 11/26/2024 HOLTER MONITOR 24-48 HOURS - GEAR HOBBER SET UP OPERATOR, ANALYZED, AND PHYSICIAN READ Routine 11/25/2024 10:45 AM EDT Near syncope Dizziness and giddiness ECG 12-LEAD Routine 11/21/2024 10:44 AM EDT Encounter to establish care from Last 3 Months Results * Holter and Cardiac Event Monitor - Onbase Scan (01/28/2025) Narrative 01/28/2025 Ordered by an unspecified provider. us Generic Provider Scanning CV CARDIAC SERVICES DE OCEDURES Final Result * ECG 12 Lead (01/02/2025 1:15 PM EDT) Only the most recent of2 resultswithin the time period is included. Narrative [facility] - 01/02/2025 3:46 PM EDT Sinus rhythm, first-degree AV block, left axis deviation, poor R wave anterior progression, rate 70. us Nagi Mcgill MD ECG ORDERABLES Final Res ult [facility] * OUTSIDE LAB SCAN (12/30/2024) Only the most recent of3 resultswithin the time period is included. Narrative 12/30/2024 Ordered by an unspecified provider. us Generic Provider Scanning OUTSIDE SCAN Final Result * HOLTER MONITOR 24-48 HOURS - GEAR HOBBER SET UP OPERATOR, ANALYZED, AND PHYSICIAN READ (11/25/2024 10:45 AM EDT) Impressions [facility] - 12/03/2024 1:05 PM EDT Abnormal 48-hour Holter monitor. Predominant sinus rhythm with first-degree AV block. Nocturnal bradycardia with second-degree heart block both type I and II. Isolated PVCs with 4 beat runs of nonsustained ventricular tachycardia. No atrial fibrillation noted. Symptoms of shortness of breath and palpitations. COMMENTS: Clinical correlation is advised. Nagi Mcgill MD [facility] Cardiology Narrative [facility] - 12/03/2024 1:05 PM EDT PROCEDURE: [...] noted. Nagi Mcgill MD CV CARDIAC SERVICES [facility] Final Result CPACS from Last 3 Months Insurance [employer] [place] [employer] [place] [employer] Member Subscriber Plan / Payer (Ef fective 2024-Present) Name:Cangeovanni Willie Relation to Subscriber:Self Name:Lisa Willie Payer ID:Not on file Type:Not on file Address: [address] [place] [id number] Care Teams Television Mechanic Relationship Specialty Start Date End Date Rio Murray MD [address] [facility] [address] [place] [address] PCP - General Family Medicine 11/11/24
--- OUTSIDE RECORDS SUMMARY | 2025-02-05 11:25 | XMS_ITS | Encounter Summary ---
Author Organization [facility] Address [address] [place] [address] Care Team Providers Care Natural Gas Shothole Driller Name Role Phone Rio Thayer MD Unavailable Rio Thayer MD Primary Care Provider [phone] Britni Irwin RN Unavailable Benito Llamas MD Unavailable Unavailable Eriberto Hdez DO Unavailable Candice Randle LPN Unavailable Rio Thayer MD Unavailable Encounter Details Date Type Department Care Team (Late st Contact Info) Description 11/24/2023 Clinisync Result Encounter [facility] External Department Unsolicited Rio Thayer MD 112 [facility] 110 [place] [address] Social History Tobacco Use Types Packs/Day Years [...] 11/01/2022 How often do you attend [facility] or temple services? More than 4 times per year 11/01/2022 Do you belong to any clubs o r organizations such as taoist groups, unions, fraternal or athletic groups, or [...] Recorded Patient Health Questionnaire-2 Score 0 08/08/2023 [facility] [place] of Occupat ional Health - Occupational Stress [...] Medince [address] [place] [address] [place] [phone] Rio Thayer MD [address] [place] [address] [place] [address] 06/05/2025 1:50 PM EST Office [facility] [address] [place] [address] [place] [address] Zaina Leonardo MD [address] [place] [address] [place] [address] documented as of this encounter Procedures Procedure Name Priority Date/Time Associated Diagnosis Comments CA ECHO DOPPLER COMPLETE 11/24/2023 9:36 AM EDT documented in this encounter Results * CA ECHO DOPPLER COMPLETE (11/24/2023 9:36 AM EDT) Anatomical Region Laterality Modality Other 11/24/2023 9:36 AM EDT Narrative 11/24/2023 9:37 AM EDT [address] [address] Cardiology Report Signed Patient: WILLIE ESPINOSA MR#: [id number] : 1940 Acct:[id number] Age/Sex: 83 / F ADM Date: 11/23/23 Loc: CARD Attending Dr: RIO THAYER Ordering Physician: RIO THAYER Date of Service: 11/23/23 Procedure(s): CA echo doppler complete Accession Number(s): [id number] cc: RIO THAYER Patient Name: WILLIE ESPINOSA MR#: [id number] : 1940 Exam Date: 11/23/2023 Ordering Doctor: [...] M.D. Signed By: 11/24/2337 DD/ 5 TD/TT: [employer]: Procedure Note Radiology, Radiologist, MD - 11/24/2023 [place] [address] Cardiology Report Signed Patient: WILLIE ESPINOSA LMR#: [id number] : 1940cct:[id number] Age/Sex: 83 / FADM Date: 11/23/23 Loc: CARD Attending Dr: RIO THAYER Ordering Physician: RIO THAYER Date of Service: 11/23/23 Procedure(s): CA echo doppler complete Accession Number(s): [id number] cc: RIO THAYER Patient Name: WILLIE ESPINOSA MR#: [id number] : 1940 Exam Date: 11/23/2023 Ordering Doctor: [...] M.D. Signed By:11/24/23 0937 DD/ 0936 TD/TT: [employer]: Rio Thayer MD [facility] Final Result documented in this encounter Visit Diagnoses Not on filedocumented in this encounter Care Teams Natural Gas Shothole Driller Relationship Specialty Start Date End Date Rio Thayer MD [address] [address] PCP - Devoted 04/24/20 04/23/24 Rio Thayer MD [address] [facility] 110 [place] [address] PCP - General Family Medicine 09/01/22 Rio Thayer MD [address] [place] [address] [place] [address] PCP - Medical [facility] 04/24/2404/23 Britni Irwin RN [address] [place] [address] Clinical Advocate Family Medicine 05/31/24 07/10/24 Benito Llamas MD [address] [place] [address] Referring Physician Dermatology 07/03/24 Eriberto Hdez DO [address] [place] [address] Otolaryngology 07/03/24 Candice Randle LPN [address] [facility] 110 [place] [address] 07/10/24 documented as of this encounter
--- OUTSIDE RECORDS SUMMARY | 2025-02-05 11:25 | XMS_ITS | Encounter Summary ---
Author Organization [facility] Address [address] [facility] [place] [address] Care Team Providers Care Laborer Airport Maintenance Name Role Phone Rio Murray MD Primary Care Provider Benito Llamas MD Unavailable Unavailable Eriberto Hdez DO Unavailable Candice Randle ENDOSCOPE TECHNICIAN Unavailable Rio Murray MD Unavailable Encounter Details Date Type Department Care Team (Late st Contact Info) Description 01/29/2025 Abstract [facility] [place] [facility] 112 [facility] 110 [place] [address] Rio Murray MD 112 [facility] 110 [place], [place] [address] Social History Tobacco Use Types Packs/Day Years [...] week 11/01/2022 How often do you attend [facility] or baptist services? More than 4 times per year 11/01/2022 Do you belong to any clubs o r organizations such as rastafari groups, unions, fraternal or athletic groups, or [...] Recorded Patient Health Questionnaire-2 Score 0 11/11/2024 [facility] - Occupational Stress Questionnaire Answer Date [...] Visit [facility] [place] [address] [facility] 110 [place] [address] Rio Murray MD [address] [facility] 110 [place] [address] 06/05/2025 1:50 PM EST Office Visit [facility] [address] [place] [address] [place] [address] Zaina Leonardo MD [address] [place] [address] documented as of this encounter Visit Diagnoses Not on filedocumented in this encounter Care Teams Laborer Airport Maintenance Relationship Specialty Start Date End Date Rio Murray MD [address] [facility] [address] [place] [address] PCP - General Family Medicine 09/01/22 Rio Murray MD [address] [facility] [address] [place] [address] PCP - Medical [facility] 04/24/2404/23 Benito Llamas MD [address] [facility] [address] [place] [address] Referring Physician Dermatology 07/03/24 Eriberto Hdez DO [address] [place] [address] Otolaryngology 07/03/24 Candice Randle LPN [address] [facility] [address] [place] [address] 07/10/24 documented as of this encounter
--- OUTSIDE RECORDS SUMMARY | 2025-02-05 11:25 | XMS_ITS | Encounter Summary ---
Author Organization [facility] Address [address] [facility] [place] [address] Care Team Providers Care Electrical Line Splicer Name Role Phone Rio Murray MD Unavailable Rio Murray MD Primary Care Provider [phone] Britni Irwin RN Unavailable [phone] Benito Llamas MD Unavailable Unavailable Eriberto Hdez DO Unavailable [phone] Candice Randle LPN Unavailable Rio Murray MD Unavailable Encounter Details Date Type Department Care Team (Late st Contact Info) Description 02/06/2024 Abstract [facility] [place] [facility] [address] [place] [address] [place] [address] Rio Murray MD [address] [facility] 110 [place], [place] [address] Social History Tobacco Use Types Packs/Day Years [...] 11/01/2022 How often do you attend [facility] or presybeterian services? More than 4 times per year 11/01/2022 Do you belong to any clubs o r organizations such as evangelical groups, unions, fraternal or athletic groups, or [...] Recorded Patient Health Questionnaire-2 Score 0 08/08/2023 [place] of Occupat ional Health - Occupational Stress [...] Office Visit [facility] [place] [address] [facility] 110 [place] [address] Rio Murray MD [address] [facility] [address] [place] [address] 06/05/2025 1:50 PM EST Office Visit [facility] [address] [place] [address] [place] [address] Zaina Leonardo MD [address] [place] [place] [address] documented as of this encounter Visit Diagnoses Not on filedocumented in this encounter Care Teams Electrical Line Splicer Relationship Specialty Start Date End Date Rio Murray MD [address] [facility] [address] [place] [address] PCP - Devoted 04/24/20 04/23/24 Rio Murray MD [address] [facility] [address] [place] [address] PCP - General Family Medicine 09/01/22 Rio Murray MD [address] [facility] [address] [place] [address] PCP - Medical [facility] 04/24/2404/23 Britni Irwin, RN [address] [place] [address] Clinical Advocate Family Medicine 05/31/24 07/10/24 Benito Llamas MD [address] [place] [address] Referring Physician Dermatology 07/03/24 Eriberto Hdez DO [address] [place] [address] Otolaryngology 07/03/24 Candice Randle LPN [address] [facility] [address] [place] [address] 07/10/24 documented as of this encounter
--- OUTSIDE RECORDS SUMMARY | 2025-02-05 11:25 | XMS_ITS | Encounter Summary ---
Author Organization [facility] Address [address] [facility] [place] [address] Care Team Providers Care Oil Burner Journeyman Name Role Phone Rio Murray MD Unavailable Rio Murray MD Primary Care Provider Britni Irwin RN Unavailable eBnito Llamas MD Unavailable Unavailable Eriberto Hdez DO Unavailable [phone] Candice Randle LPN Unavailable Rio Murray MD Unavailable Encounter Details Date Type Department Care Team (Late st Contact Info) Description 02/22/2023 Abstract [facility] [place] [facility] [address] [facility] 110 [place] [address] Rio Murray MD [address] [facility] 110 [place], [place] [phone] Social History Tobacco Use Types Packs/Day Years [...] How often do you attend chur or muslim services? More than 4 times per year 11/01/2022 Do you belong to any clubs o r organizations such as yazidi groups, unions, fraternal or athletic groups, or [...] and heating? Not hard at all 11/01/2022 [facility] of Occupat ional Health - Occupational Stress [...] [address] [place] [address] [place] [address] Rio Murray MD [address] [place] [address] [place] [address] 06/05/2025 1:50 PM EST Office Visit [facility] [address] [place] [address] [place] [address] Zaina Leonardo MD [address] [place] [address] [place] [address] documented as of this encounter Visit Diagnoses Not on filedocumented in this encounter Care Teams Oil Burner Journeyman Relationship Specialty Start Date End Date Rio Murray MD [address] [facility] [address] [place] [address] PCP - Devoted 04/24/20 04/23/24 Rio Murray MD [address] [facility] [address] [place] [address] PCP - General Family Medicine 09/01/22 Rio Murray MD [address] [facility] 110 [place] [address] PCP - Medical [facility] 04/24/2404/23 Britni Irwin, RN [address] [place] [address] Clinical Advocate Family Medicine 05/31/24 07/10/24 Benito Llamas MD [address] [place] [address] Referring Physician Dermatology 07/03/24 Eriberto Hdez, [address] [place] [address] Otolaryngology 07/03/24 Candice Randle LPN [address] [facility] [address] [place] [address] 07/10/24 documented as of this encounter
--- OUTSIDE RECORDS SUMMARY | 2025-02-05 11:25 | XMS_ITS | Encounter Summary ---
Author Organization [facility] Address [address] [facility] [place] [address] Care Team Providers Care Protective Services Officer Name Role Phone Rio Murray MD Primary Care Provider [phone] Benito Llamas MD Unavailable Unavailable Eriberto Hdez DO Unavailable Candice Randle SITE TECHNICIAN Unavailable Rio Murray MD Unavailable Encounter Details Date Type Department Care Team (Late st Contact Info) Description 08/21/2024 Abstract [facility] [place] [facility] 112 [facility] 110 [place] [address] Rio Murray MD 112 [facility] 110 [place], [place] [address] Social History Tobacco Use Types Packs/Day Years [...] week 11/01/2022 How often do you attend [facility] or shinto services? More than 4 times per year 11/01/2022 Do you belong to any clubs o r organizations such as samaritan groups, unions, fraternal or athletic groups, or [...] Recorded Patient Health Questionnaire-2 Score 0 08/12/2024 [facility] - Occupational Stress Questionnaire Answer Date [...] Visit [facility] [place] [address] [facility] 110 [place] [address] Rio Murray MD [address] [facility] 110 [place] [address] 06/05/2025 1:50 PM EST Office Visit [facility] [address] [place] [place] [address] Ziana Leonardo MD [address] [place] [address] [place] [address] documented as of this encounter Visit Diagnoses Not on filedocumented in this encounter Care Teams Protective Services Officer Relationship Specialty Start Date End Date Rio Murray MD [address] [facility] [address] [place] [address] PCP - General Family Medicine 09/01/22 Rio Murray MD [address] [facility] [address] [place] [address] PCP - Medical [facility] 04/24/2404/23 Benito Llamas MD [address] [facility] [address] [place] [address] Referring Physician Dermatology 07/03/24 Eriberto Hdez DO [address] [place] [address] Otolaryngology 07/03/24 Candice Randle LPN [address] [facility] [address] [place] [address] 07/10/24 documented as of this encounter
--- OUTSIDE RECORDS SUMMARY | 2025-02-05 11:25 | XMS_ITS | Encounter Summary ---
Author Organization [facility] Address [address] [facility] [place] [address] Care Team Providers Care Chuck Tender Name Role Phone Rio Murray MD Primary Care Provider Britni Irwin RN Unavailable [phone] Benito Llamas MD Unavailable Unavailable Eriberto Hdez DO Unavailable Candice Randle LPN Unavailable Rio Murray MD Unavailable Encounter Details Date Type Department Care Team (Late st Contact Info) Description 05/30/2024 Abstract [facility] [place] [facility] 112 [facility] 110 [place] [address] Rio Murray MD 112 [facility] 110 [place] [address] Social History Tobacco Use Types Packs/Day Years [...] you attend formerly [facility] or buddhist services? More than 4 times per year 11/01/2022 Do you belong to any clubs o r organizations such as anabaptist groups, unions, fraternal or athletic groups, or [...] place to sleep or slept in a nursing home (including now)? No 11/01/2022 Comments Unknown [...] [facility] [place] [facility] [address] [facility] 110 [place] [address] Rio Murray MD [address] [facility] 110 [place] [address] 06/05/2025 1:50 PM EST Office Visit [facility] [address] [place] [address] Zaina Leonardo MD [address] [place], [place] [address] documented as of this encounter Visit Diagnoses Not on filedocumented in this encounter Care Teams Chuck Tender Relationship Specialty Start Date End Date Rio Murray MD [address] [facility] 110 [place] [address] PCP - General Family Medicine 09/01/22 Rio Murray MD [address] [facility] 110 [place] [address] PCP - Medical [facility] 04/24/2404/23 Britni Irwin, RN [address] [place] [address] Clinical Advocate Family Medicine 05/31/24 07/10/24 Benito Llamas MD [address] [place] [address] Referring Physician Dermatology 07/03/24 Eriberto Hdez DO [address] [place] [address] Otolaryngology 07/03/24 Candice Randle LPN [address] [facility] 110 [place] [address] 07/10/24 documented as of this encounter
--- OUTSIDE RECORDS SUMMARY | 2025-02-05 11:25 | XMS_ITS | Encounter Summary ---
Author Organization [facility] Address [address] [facility] [place] [address] Care Team Providers Care Assembler Product Name Role Phone Rio Murray MD Primary Care Provider Britni Irwin RN Unavailable Benito Llamas MD Unavailable Unavailable Eriberto Hdez DO Unavailable Candice Randle LPN Unavailable Rio Murray MD Unavailable Encounter Details Date Type Department Care Team (Late st Contact Info) Description 06/06/2024 Abstract [facility] [place] [facility] 112 [facility] 110 [place] [address] Rio Murray MD 112 [facility] 110 [place] [address] Social History Tobacco Use Types Packs/Day Years [...] often do you attend [facility] or orthodoxy services? More than 4 times per year 11/01/2022 Do you belong to any clubs o r organizations such as orthodox groups, unions, fraternal or athletic groups, [...] Recorded Patient Health Questionnaire-2 Score 0 05/16/2024 [facility] of Occupat ional Health - [...] [place] [address] [place] 110 [place] [address] Rio Murray MD [address] [facility] 110 [place] [address] 06/05/2025 1:50 PM EST Office Visit [facility] [address] [place] [address] Zaina Leonardo MD [address] [place], [place] [address] documented as of this encounter Visit Diagnoses Not on filedocumented in this encounter Care Teams Assembler Product Relationship Specialty Start Date End Date Rio Murray MD [address] [facility] 110 [place] [address] PCP - General Family Medicine 09/01/22 Rio Murray MD [address] [facility] 110 [place] [address] PCP - Medical [facility] 04/24/2404/23 Britni Irwin, RN [address] [place] [address] Clinical Advocate Family Medicine 05/31/24 07/10/24 Benito Llamas MD [address] [place] [address] Referring Physician Dermatology 07/03/24 Eriberto dHez DO [address] [place] [address] Otolaryngology 07/03/24 Candice Randle LPN [address] [facility] 110 [place] [address] 07/10/24 documented as of this encounter
--- OUTSIDE RECORDS SUMMARY | 2025-02-05 11:25 | XMS_ITS | Encounter Summary ---
Author Organization [facility] Address [address] [facility] [place] [address] Care Team Providers Care Tent Worker Name Role Phone Rio Murray MD Unavailable Rio Murray MD Primary Care Provider [phone] Britni Irwin RN Unavailable Benito Llamas MD Unavailable Unavailable Eriberto Hdez DO Unavailable Candice Randle LPN Unavailable Rio Murray MD Unavailable Encounter Details Date Type Department Care Team (Late st Contact Info) Description 08/15/2023 Abstract [facility] [place] [facility] [address] [facility] 110 [place] [address] Rio Murray MD [address] [facility] 110 [place], [place] [address] Social History Tobacco Use Types Packs/Day Years [...] any clubs o r organizations such as episcopal groups, unions, fraternal or athletic groups, or [...] Recorded Patient Health Questionnaire-2 Score 0 08/08/2023 [facility] Occupat ional Health - [...] 02/10/2025 10:30 AM EDT Office Visit [facility] [address] [place] [address] Rio Murray MD [address] [place] [address] 06/05/2025 1:50 PM EST Office Visit [facility] [place] [facility] [address] [place] [address] Zaina Leonardo MD [address] [place] [address] documented as of this encounter Visit Diagnoses Not on filedocumented in this encounter Care Teams Tent Worker Relationship Specialty Start Date End Date Rio Murray MD [address] [facility] 110 [place] [address] PCP - Devoted 04/24/20 04/23/24 Rio Murray MD [address] [facility] 110 [place] [address] PCP - General Family Medicine 09/01/22 Rio Murray MD [address] [facility] 110 [place] [address] PCP - Medical [facility] 04/24/2404/23 Britni Irwin, LINO [address] [place] [address] Clinical Advocate Family Medicine 05/31/24 07/10/24 Benito Llamas MD [address] [facility] [place] [address] Referring Physician Dermatology 07/03/24 Eriberto Hdez DO [address] [place] [address] Otolaryngology 07/03/24 Candice Randle LPN [address] [facility] 110 [place] [address] 07/10/24 documented as of this encounter
--- OUTSIDE RECORDS SUMMARY | 2025-02-05 11:25 | XMS_ITS | Encounter Summary ---
Author Organization [facility] Address [address] [place] [address] Phone Care Team Providers Care Plant Operator Helper Name Role Phone Rio Murray MD Primary Care Provider [phone] Encounter Details Date Type Department Care Team (Late st Contact Info) Description 01/28/2025 Orders Only [facility] [address] [place] [id number] Scanning, Generic Provider Social History Tobacco Use [...] Description 02/13/2025 10:45 AM EDT Office [facility] [facility] 250 [place] [address] Nagi Mcgill MD [address] [facility] 130 [place], [place] [address] documented as of this encounter Procedures Procedure Name Priority Date/Time Associated Diagnosis Comments HOLTER AND CARDIAC EVENT MONITOR - ONBASE SCAN 01/28/2025 documented in this encounter Results * Holter and Cardiac Event Monitor - Onbase Scan (01/28/2025) Narrative 01/28/2025 Ordered by an unspecified provider. us Generic Provider Scanning [facility] OC[facility] Final Result documented in this encounter Visit Diagnoses Not on filedocumented in this encounter Additional Health Concerns Assessment Noted Time A fall risk assessment has been complete d for the patient 01/02/2025 1:41 PM EDT documented as of this encounter Care Teams Plant Operator Helper Relationship Specialty Start Date End Date Rio Murray MD 112 [place] [address] PCP - General Family Medicine 11/11/24 documented as of this encounter
--- OUTSIDE RECORDS SUMMARY | 2025-02-05 11:25 | XMS_ITS | Encounter Summary ---
Author Organization [facility] Address [address] [facility] [place] [address] Care Team Providers Care Rehab Spec Name Role Phone Rio Murray MD Unavailable Rio Murray MD Primary Care Provider [phone] Britni Irwin RN Unavailable [phone] Benito Llamas MD Unavailable Unavailable Eriberto Hdez DO Unavailable Candice Randle LPN Unavailable Rio Murray MD Unavailable Encounter Details Date Type Department Care Team (Late st Contact Info) Description 02/22/2023 Abstract [facility] [place] [facility] [address] [facility] 110 [place] [address] Rio uMrray MD [address] [facility] 110 [place], [place] [address] Social History Tobacco Use Types Packs/Day Years [...] How often do you attend chur or protestant services? More than 4 times per year [...] and heating? Not hard at all 11/01/2022 [facility] of Occupat ional Health - Occupational Stress [...] Medince [address] [place] [address] Rio Murray MD [address] [place] [address] 06/05/2025 1:50 PM EST Office Visit [facility] [address] [place] [address] Zaina Leonardo MD [address] [place] [address] documented as of this encounter Visit Diagnoses Not on filedocumented in this encounter Care Teams Rehab Spec Relationship Specialty Start Date End Date Rio Murray MD [address] [facility] 110 [place] [address] PCP - Devoted 04/24/20 04/23/24 Rio Murray MD [address] [facility] 110 [place] [address] PCP - General Family Medicine 09/01/22 Rio Murray MD [address] [facility] 110 [place] [address] PCP - Medical [facility] 04/24/2404/23 Britni Irwin, RN [address] [place] [address] Clinical Advocate Family Medicine 05/31/24 07/10/24 Benito Llamas MD [address] [place] [address] Referring Physician Dermatology 07/03/24 Eriberto Hdez, [address] [place] [address] Otolaryngology 07/03/24 Candice Randle LPN [address] [facility] 110 [place] [address] 07/10/24 documented as of this encounter
--- OUTSIDE RECORDS SUMMARY | 2025-02-05 11:25 | XMS_ITS | Clinical Summary ---
Author Organization [facility] Address [id number] [address] [place] [address] Care Team Providers Care Core Blower Name Role Phone Angelo Llanes DO Primary Care Provider [phone] Allergies Active Allergy Reactions Criticality Noted Date [...] on file Insurance [employer] MEDICARE Care Teams Core Blower Relationship Specialty Start Date End Date Angelo Llanes DO [address] [place] [address] PCP - General Family Medicine 08/31/16
--- OUTSIDE RECORDS SUMMARY | 2025-02-05 11:25 | XMS_ITS | Encounter Summary ---
Author Organization [facility] Address [address] [facility] [place] [address] Care Team Providers Care Pharmacognosist Name Role Phone Rio Murray MD Primary Care Provider Britni Irwin RN Unavailable Benito Llamas MD Unavailable Unavailable Eriberto Hdez DO Unavailable Candice Randle LPN Unavailable Rio Murray MD Unavailable Encounter Details Date Type Department Care Team (Late st Contact Info) Description 05/17/2024 Abstract [facility] [place] [facility] 112 [facility] 110 [place] [address] Rio Murray MD 112 [facility] 110 [place] [address] Social History Tobacco Use Types Packs/Day Years [...] week 11/01/2022 How often do you attend [facility] or islam services? More than 4 times per year 11/01/2022 Do you belong to any clubs o r organizations such as uatsdin groups, unions, fraternal or athletic groups, or [...] Recorded Patient Health Questionnaire-2 Score 0 05/16/2024 [facility] of Occupat ional Health - [...] Visit [facility] [place] [facility] [address] [facility] 110 [place] [address] Rio Murray MD [address] [facility] 110 [place] [address] 06/05/2025 1:50 PM EST Office Visit [facility] [address] [place] [address] Zaina Leonardo MD [address] [place], [place] [address] documented as of this encounter Visit Diagnoses Not on filedocumented in this encounter Care Teams Pharmacognosist Relationship Specialty Start Date End Date Rio Murray MD [address] [facility] 110 [place] [address] PCP - General Family Medicine 09/01/22 Rio Murray MD [address] [facility] 110 [place] [address] PCP - Medical [facility] 04/24/2404/23 Britni Irwin, RN [address] [place] [address] Clinical Advocate Family Medicine 05/31/24 07/10/24 Benito Llamas MD [address] [place] [address] Referring Physician Dermatology 07/03/24 Eriberto Hdez DO [address] [place] [address] Otolaryngology 07/03/24 Candice Randle LPN [address] [facility] 110 [place] [address] 07/10/24 documented as of this encounter
--- OUTSIDE RECORDS SUMMARY | 2025-02-05 11:25 | XMS_ITS | Encounter Summary ---
Author Organization [facility] Address [address] [facility] [place] [address] Care Team Providers Care Brine Room Laborer Name Role Phone Rio Murray MD Primary Care Provider Benito Llamas MD Unavailable Unavailable Eriberto Hdez DO Unavailable Candice Randle SNACK STEWARD Unavailable Rio Murray MD Unavailable Encounter Details Date Type Department Care Team (Late st Contact Info) Description 08/26/2024 Abstract [facility] [place] [facility] 112 [facility] 110 [place] [address] Rio Murray MD 112 [facility] 110 [place], [place] [address] Social History Tobacco Use Types Packs/Day Years [...] week 11/01/2022 How often do you attend [facility] or alevism services? More than 4 times per year 11/01/2022 Do you belong to any clubs o r organizations such as scientology groups, unions, fraternal or athletic groups, or [...] Recorded Patient Health Questionnaire-2 Score 0 08/12/2024 [facility] - Occupational Stress Questionnaire Answer Date [...] Visit [facility]S [place] [facility] [address] [facility] 110 [place] [address] Rio Murray MD [address] [facility] 110 [place] [address] 06/05/2025 1:50 PM EST Office Visit [facility] [address] [place] [address] Zaina Leonardo MD [address] [place] [address] documented as of this encounter Visit Diagnoses Not on filedocumented in this encounter Care Teams Brine Room Laborer Relationship Specialty Start Date End Date Rio Murray MD [address] [facility] 110 [place] [address] PCP - General Family Medicine 09/01/22 Rio Murray MD [address] [facility] 110 [place] [address] PCP - Medical [facility] 04/24/2404/23 Benito Llamas MD [address] [facility] 110 [place] [address] Referring Physician Dermatology 07/03/24 Eriberto Hdez DO [address] [place] [address] Otolaryngology 07/03/24 Candice Randle LPN [address] [facility] [address] [place] [address] 07/10/24 documented as of this encounter
--- OUTSIDE RECORDS SUMMARY | 2025-02-05 11:25 | XMS_ITS | Encounter Summary ---
Author Organization [facility] Address [address] [facility] [place] [address] Care Team Providers Care Home Organizer Name Role Phone Rio Murray MD Primary Care Provider Benito Llamas MD Unavailable Unavailable Eriberto Hdez DO Unavailable Candice Randle HYBRID DERIVATIVES TRADER Unavailable Rio Murray MD Unavailable Encounter Details Date Type Department Care Team (Late st Contact Info) Description 12/19/2024 Abstract [facility] [place] [facility] 112 [facility] 110 [place] [address] Rio Murray MD 112 [facility] 110 [place], [place] [address] Social History Tobacco Use Types Packs/Day Years [...] week 11/01/2022 How often do you attend [facility] or baptism services? More than 4 times per year 11/01/2022 Do you belong to any clubs o r organizations such as latter-day groups, unions, fraternal or athletic groups, or [...] Score 0 11/11/2024 [facility] - Occupational Stress Questionnaire Answer Date [...] Visit N[facility]S [place] [facility] [address] [facility] 110 [place] [address] Rio Murray MD [address] [facility] 110 [place] [address] 06/05/2025 1:50 PM EST Office Visit [facility] [address] [place] [address] Zaina Leonardo MD [address] [place] [address] documented as of this encounter Visit Diagnoses Not on filedocumented in this encounter Care Teams Home Organizer Relationship Specialty Start Date End Date Rio Murray MD [address] [facility] 110 [place] [address] PCP - General Family Medicine 09/01/22 Rio Murray MD [address] [facility] 110 [place] [address] PCP - Medical [facility] 04/24/2404/23 Benito Llamas MD [address] [facility] 110 [place] [address] Referring Physician Dermatology 07/03/24 Eriberto Hdez DO [address] [place] [address] Otolaryngology 07/03/24 Candice Randle LPN [address] [facility] [address] [place] [address] 07/10/24 documented as of this encounter
--- OUTSIDE RECORDS SUMMARY | 2025-02-05 11:25 | XMS_ITS ---
Author Organization [facility] Address [address] [place] [address] Care Team Providers Care Charge Authorizer Name Role Phone Rio Murray MD Primary Care Provider [phone] Benito Llamas MD Unavailable Unavailable Eriberto Hdez DO Unavailable Candice Randle LPN Unavailable Rio Murray MD Unavailable Chronic Care Management (CCM) Status:Enrolled (Active) Start date:08/13/2021 Enrollment date:08/13/2021 Overview 02/09/23, 2:03 PM - Monday, MARIO- Patient gives verbal consent to be enrolled in CCM Program and understands there could be a bill for this service. Case Team Name Relationship Phone Candice Jer MARTIN(Responsible Staff) [phone] Continued Care and Services Coordination
--- OUTSIDE RECORDS SUMMARY | 2025-02-05 11:25 | XMS_ITS | Encounter Summary ---
Author Organization [facility] Address [address] [place] [address] Care Team Providers Care Cia Agent Name Role Phone Rio Thayer MD Unavailable Rio Thayer MD Primary Care Provider Britni Irwin RN Unavailable Benito Llamas MD Unavailable Unavailable Eriberto dHez DO Unavailable [phone] Candice Randle LPN Unavailable Rio Thayer MD Unavailable Encounter Details Date Type Department Care Team (Late st Contact Info) Description 05/22/2023 Clinisync Result Encounter NOMS External Department Unsolicited Rio Thayer MD 112 [facility] 110 [address] Social History Tobacco Use Types Packs/Day [...] How often do you attend chur or christian services? More than 4 times per year 11/01/2022 Do you belong to any clubs o r organizations such as sikh groups, unions, fraternal or athletic groups, or [...] and heating? Not hard at all 11/01/2022 [facility] of Occupat ional Health - Occupational Stress [...] Description 02/10/2025 10:30 AM EDT [facility] [address] [facility] 110 [place] [address] Rio Thayer MD [address] [facility] 110 [place] [address] 06/05/2025 1:50 PM EST Office Visit [facility] [address] [place] [address] Zaina Leonardo MD [address] [place] [address] documented as of this encounter Procedures Procedure Name Priority Date/Time Associated Diagnosis Comments NM DEANNA PERF SPECT REST STR 05/22/2023 2:17 PM EST documented in this encounter Results * NM DEANNA PERF SPECT REST STR (05/22/2023 2:17 PM EST) Anatomical Region Laterality Modality Other 05/22/2023 2:17 PM EST Narrative 05/22/2023 2:18 [place] [address] Nuclear Medicine Report Signed Patient: WILLIE ESPINOSA MR#: [id number] : 1940 Acct:[id number] Age/Sex: 83 / F ADM Date: 05/22/23 Loc: [place] Attending Dr: RIO THAYER Ordering Physician: RIO THAYER Date of Service: 05/22/23 Procedure(s): NM deanna perf SPECT rest str Accession Number(s): [id number] cc: RIO THAYER Patient Name: WILLIE ESPINOSA MR#: [id number] : 1940 Exam Date: 05/22/2023 Ordering Doctor: [...] Signed By: 05/22/23 1418 DD/ 1417 TD/TT: Masking Machine Operator: Procedure Note Radiology, Radiologist, MD - 05/22/2023 [place] [address] Nuclear Medicine Report Signed Patient: WILLIE ESPINOSA LMR#: [id number] : 1940cct:[id number] Age/Sex: 83 / FADM Date: 05/22/23 Loc: [place] Attending Dr: RIO THAYER Ordering Physician: RIO THAYER Date of Service: 05/22/23 Procedure(s): NM deanna perf SPECT rest str Accession Number(s): [id number] cc: RIO THAYER Patient Name: WILLIE ESPINOSA MR#: [id number] : 1940 Exam Date: 05/22/2023 Ordering Doctor: [...] M.D. Signed By:05/22/23 1418 DD/ 141 TD/TT: Masking Machine Operator: Rio Thayer MD [facility] Final Result documented in this encounter Visit Diagnoses Not on filedocumented in this encounter Care Teams Cia Agent Relationship Specialty Start Date End Date Rio Thayer MD [address] [facility] 110 [place] [address] PCP - Devoted 04/24/20 04/23/24 Rio Thayer MD [address] [facility] 110 [place] [address] PCP - General Family Medicine 09/01/22 Rio Thayer MD [address] [facility] 110 [place] [address] PCP - Medical [facility] 04/24/2404/23 Britni Irwin, LINO [address] [facility], [place] [address] Clinical Advocate Family Medicine 05/31/24 07/10/24 Benito Llamas MD [address] [facility] [place] [address] Referring Physician Dermatology 07/03/24 Eriberto Hdez DO [address] [place] [address] Otolaryngology 07/03/24 Candice Randle LPN 112 [facility] 110 [place] [address] 07/10/24 documented as of this encounter
--- OUTSIDE RECORDS SUMMARY | 2025-02-05 11:25 | XMS_ITS | Clinical Summary ---
Author Organization [facility] Address [address] [place] [address] Care Team Providers Care Environmental Engineer Scientist Name Role Phone Rio Thayer MD Primary Care Provider [phone] Benito Llamas MD Unavailable Unavailable Eriberto Hdez DO Unavailable Candice Randle MACHINE PRECISION ENGRAVER Unavailable Rio Thayer MD Unavailable Allergies Active [...] flared, 30 day supply 60 mL 11 02/29/20 24 Active Fluocinolone Acetonide Scalp (fluocinolone) 0.01 % oilIndications:Pso riasis vulgaris Apply to scalp, up to twice a day for flares, 30 day supply 118.28 mL 02/29/20 24 Active ergocalciferol (Vitamin D2) 1.25 MG (74673 UT) capsuleIndications :Vitamin D deficiency Take 1 capsule (1.25 mg) by mouth 1 (one) time per week 12 capsule 05/18/19 25 Active Continuous Glucose Warehouse Person (FreeStyle Ivy 2 Weston) deviceIndications: Uncontrolled type 2 diabetes mellitus with hypoglycemia, unspecified hypoglycemia coma status (HCC) Inject 1 Device under the skin Daily 1 each 08/21/19 25 Active Continuous Glucose Sensor (FreeStyle Ivy 2 Sensor) miscIndications:Un controlled type 2 diabetes mellitus with hypoglycemia, unspecified hypoglycemia coma status (HCC) Inject 1 Device under the skin every 14 (fourteen) days 6 each 08/21/19 25 Active insulin pen needle (BD [...] g 3 11/12/19 25 Active insulin lispro-aabc (Lyumjev KwikPen) 100 UNIT/ML penIndications: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 Inject with meals. 3 pen 01/14/20 25 025 Active insulin lispro-aabc (Lyumjev KwikPen) 100 UNIT/ML pen Inject 8 Units under the skin in the morning and 8 Units in the evening. 025 Discontin ued(Reord er) Active Problems Problem Noted Date Diagnosed Date [...] D/W patient needs to be consistent with Tresiba and Novolog Closed fracture of left foot [...] taking them as prescribed. DASH diet handouts Assessment & Plan (04/25/2023 11:10 AM [...] the importance of taking them as prescribed. NeuroSave diet handouts Assessment & Plan (02/21/2023 11:09 AM [...] taking them as prescribed. DASH diet handouts Bilateral cataracts 10/18/2022 Degeneration of lumbar [...] 2:08 PM EST): Narrative & Impression [facility] [place] [id number] Cardiology Report Signed Patient: WILLIE ESPINOSA MR#: [id number] : 1940 Acct:[id number] Age/Sex: 83 / F ADM Date: 11/23/23 Loc: CARD Attending Dr: RIO THAYER Ordering Physician: RIO THAYER Date of Service: 11/23/23 Procedure(s): CA echo doppler complete Accession Number(s): [id number] cc: RIO THAYER Patient Name: WILLIE ESPINOSA MR#: [id number] : 1940 Exam Date: 11/23/2023 Ordering Doctor: [...] Encounters Date Type Department Care Team Description 01/29/2025 [facility] [address] [place] [address] Rio Thayer MD 01/16/2025 Patient Outreach [facility] [address] [place] [address] Candice Randle LPN 01/15/2025 Telephone [facility] [address] [place] [address] Candice Randle MACHINE PRECISION ENGRAVER 01/15/2025 Patient Outreach [facility] [address] [place] [address] Candice Randle MACHINE PRECISION ENGRAVER 01/13/2025 Patient Outreach [facility] [address] [place] [address] Candice Randle MACHINE PRECISION ENGRAVER 12/30/2024 Clinisync Result Encounter NOMS External Department Unsolicited Provider, Generic External Data 12/19/2024 Abstract [facility] [address] [place] [address] Rio Thayer MD 12/16/2024 Patient Outreach [place] [id number] [place] [address] Candice Randle LPN 12/05/2024 3:30 PM EDT Office Visit [facility] [address] [place] [address] Zaina Leonardo MD Seborrheic keratosis (Primary Dx); History of basal cell carcinoma; Seborrheic keratosis, inflamed; Actinic keratosis; Milia 12/05/2024 Bamboo flowsheet [facility] [address] [place] [address] Zaina Leonardo MD 12/05/2024 Travel 11/26/2024 Clinisync Result Encounter NOMS External Department Unsolicited Provider, Generic External Data 11/25/2024 Patient Outreach [place] [address] [place] [address] Candice Randle LPN 11/22/2024 Abstract [facility] [address] [place] [address] Rio Thayer MD 11/15/2024 Patient Outreach [place] [id number] [place] [address] Candice Randle LPN 11/11/2024 11:00 AM EDT Office Visit [facility] [address] [place] [address] Rio Thayer MD Other chest pain (Primary Dx); Asthma, unspecified asthma severity, unspecified whether complicated, unspecified whether persistent (HCC); Uncontrolled type 2 diabetes mellitus with hypoglycemia, unspecified hypoglycemia coma status (HCC) 11/11/2024 Patient Outreach [place] [address] [place] [address] Candice Randle LPN 11/11/2024 Travel from Last 3 Months Immunizations Immunization Administration [...] do you attend [facility] or sabianism services? More than 4 times per year [...] Recorded Patient Health Questionnaire-2 Score 0 11/11/2024 [facility] Questionnaire Answer Date [...] 10:30 AM EDT Office Visit [facility] [address] [facility] 110 [place] [address] Rio Thayer MD 112 [facility] 110 [place] [address] 06/05/2025 1:50 PM EST Office Visit [facility] [address] [place] [address] Zaina Leonardo MD [address] [place] [address] Health Maintenance Due Date Last Done Comments Influenza Vaccine (#1) 2024 , 01/24/2023, 02/14/2022, Additional history exists Diabetes: Retinopathy Screening 01/17/2025 01/18/2024, 09/30/2022, 11/12/2021, Additional history exists Diabetes: Hemoglobin A1C 02/11/2025 025, 08/12/2024, 05/16/2024, Additional history exists Diabetes: Urine Protein Screening 08/12/2025 025, 07/24/2023 Pneumococcal Vaccine: 65+ Years Completed 5, 03/08/2011 Procedures Procedure Name Priority Date/Time Associated Diagnosis Comments ALL MAGNESIUM Routine 12/30/2024 12:09 PM EDT [facility] CMP (CMP) (FOR REMOTE [facility] USE) Routine 12/30/2024 12:09 PM EDT ALL CBC WITH AUTO DIFF Routine 12/30/2024 12:09 PM EDT CRYOTHERAPY SKIN LESION Routine 12/05/2024 3:39 PM EDT Actinic keratosis CRYOTHERAPY SKIN LESION Routine 12/05/2024 3:38 PM EDT Seborrheic keratosis, inflamed ALL THYROID STIM HORMONE Routine 11/26/2024 9:26 AM EDT ALL LIPID PROFILE (FASTING) Routine 11/26/2024 9:26 AM EDT ALL MAGNESIUM Routine 11/26/2024 9:26 AM EDT [facility] CMP (CMP) (FOR REMOTE [facility] USE) Routine 11/26/2024 9:26 AM EDT ALL [...] Recently Relevant to Health Maintenance Results * (ABNORMAL) [facility] CMP (CMP) (FOR REMOTE [facility] USE) (12/30/2024 12:09 PM EDT) Only the most recent of2 resultswithin the time period is included. SODIUM 143 136 - 145 mmol/L [facility] POTASSIUM 5.3(H) 3.5 - 5.1 mmol/L [facility] CHLORIDE 105 98 - 107 mmol/L [facility] CARBON DIOXIDE 30.3 21.0 - 32.0 mmol/L [facility] ANION GAP 13.0 [facility] GLUCOSE 223(H) 74 - 106 mg/dL [facility] BLOOD UREA NITROGEN 31.0(H) 7.0 - 18.0 mg/dL [facility] CREATININE 1.13(H) 0.55 - 1.02 mg/dL TBH TBH EGFR-AF BENINESE 56(L) >=60 mL/min/1. 73m 2 TBH TBH EGFR-NON AF BENINESE 46(L) >=60 mL/min/1. 73m 2 TBH BUN CREATININE RATIO 27.4 TBH CALCIUM 9.7 8.5 - 10.1 mg/dL [facility] BILIRUBIN TOTAL 0.6 0.2 - 1.0 mg/dL [facility] ASPARTATE AMINO TRANSFERASE 11(L) 15 - 37 U/L [facility] ALANINE AMINOTRANSFERASE 16 14 - 59 U/L TBH ALKALINE PHOSPHATASE 82 46 - 116 U/L TBH TOTAL PROTEIN 7.2 6.4 - 8.2 g/dL TBH ALBUMIN LEVEL 3.6 3.4 - 5.0 g/dL TBH GLOBULIN 3.6 g/dL TBH ALBUMIN GLOBULIN RATIO 1.0 TBH 12/30/2024 12:0 9 PM EDT 12/30/2024 12:12 PM EDT Narrative CLINISYNC - 12/30/2024 12:59 PM EDT Generic External Data Provider CLIN[facility]NC F inal Result [facility] * ALL MAGNESIUM (12/30/2024 12:09 PM EDT) Only the most recent of2 resultswithin the time period is included. Pathologist [facility] MAGNESIUM 1.9 1.8 - 2.4 mg/dL TB 12/30/2024 12:0 9 PM EDT 12/30/2024 12:12 PM EDT Narrative CLINISYWI - 12/30/2024 12:59 PM EDT Generic External Data Provider CLINISYNC F inal Result Performing Organization Address City/[facility] Co de Phone Number [facility] * (ABNORMAL) ALL CBC WITH AUTO DIFF (12/30/2024 12:09 PM EDT) Only the most recent of2 resultswithin the time period is included. [facility] TB WBC 9.0 4.0 - 11.0 10 3/uL TBH TB RBC 3.98(L) 4.20 - 5.40 10 6/uL TBH TB HGB 11.7(L) 12.0 - 16.0 g/dL TB TB HCT 36.8 36.0 - 48.0 % TB TB MCV 92.5 81.0 - 99.0 fL TB TB MCH 29.4 26.7 - 34.0 pg TBH TB MCHC 31.8 29.9 - 35.2 g/dL TB TB RDW 13.7 11.0 - 15.0 % TBH TB PLT 224 150 - 450 10 3/uL TB TB MPV 10.3 9.5 - 13.5 fL TBH NEUTROPHILS PERCENT AUTO 69.4 43.0 - 75.0 % TBH LYMPHOCYTES PERCENT AUTO 21.0 20.5 - 60.0 % TBH MONOCYTES PERCENT AUTO 7.7 1.7 - 12.0 % TBH TBH EO % 1.0 0.9 - 7.0 % TBH BASOPHILS PERCENT AUTO 0.3 0.2 - 2.0 % TBH IMMATURE GRANULOCYTES PCT AUTO 0.6(H) 0.0 - 0.5 % TBH NEUTROPHILS ABSOLUTE AUTO 6.3 1.4 - 6.5 10 3/uL TBH LYMPHOCYTES ABSOLUTE AUTO 1.9 1.2 - 3.8 10 3/uL TBH MONOCYTES ABSOLUTE AUTO 0.7 0.3 - 0.8 10 3/uL TBH TBH EO # 0.1 0.0 - 0.7 10 3/uL TBH BASOPHILS ABSOLUTE AUTO 0.0 0.0 - 0.1 10 3/uL TBH IMMATURE GRANULOCYTES ABS AUTO 0.05(H) 0.00 - 0.03 10 3/uL TBH 12/30/2024 12:0 9 PM EDT 12/30/2024 12:12 PM EDT Narrative CLINISYNC - 12/30/2024 12:29 PM EDT Generic External Data Provider CLINISYNC F inal Result Performing Organization Address [facility]/ZIP Co de Phone Number [facility] * Cryotherapy, skin lesion (12/05/2024 3:39 PM EDT) Result [facility] Zaina Leonardo MD DERM PROCEDURE ORDERABLES Fin al Result * Cryotherapy, skin lesion (12/05/2024 3:38 PM EDT) Zaina Leonardo MD DERM PROCEDURE ORDERABLES Fin al Result * ALL THYROID STIM HORMONE (11/26/2024 9:26 AM EDT) THYROID STIMULATING HORMONE 1.163 0.358 - 3.740 uIU/mL TBH 11/26/2024 9:26 AM EDT 11/26/2024 9:28 AM EDT Narrative CLINISYNC - 11/26/2024 10:07 AM EDT Generic External Data Provider CLINISYNC F inal Result Performing Organization Address [facility]/ZIP Co de Phone Number [facility] * (ABNORMAL) ALL LIPID PROFILE (FASTING) (11/26/2024 9:26 AM EDT) Pathologist [facility] TRIGLYCERIDES 155(H) <=150 mg/dL [facility] CHOLESTEROL 202(H) <=200 mg/dL TB HDL CHOLESTEROL 40 40 - 60 mg/dL [facility] Comment: > or =60 mg/dl - LOW CARDIOVASCULAR RISK <40 mg/dl - HIGH CARDIOVASCULAR RISK LDL CHOLESTEROL CALCULATED 131.0 mg/dL [facility] Comment: <100 mg/dl OPTIMAL 100-129 mg/dl NEAR OR ABOVE OPTIMAL 130-159 mg/dl BORDERLINE HIGH 160-189 mg/dl HIGH >190 mg/dl VERY HIGH VLDL CHOLESTEROL 31.0 mg/dL [facility] CHOL HDL RATIO 5.1 TB Comment: 3.3 - 4.4 LOW RISK 4.4 - 7.1 AVERAGE RISK 7.1 - 11.0 MODERATE RISK >11.0 HIGH RISK 11/26/2024 9:26 AM EDT 11/26/2024 9:28 AM EDT Narrative CLINISYNC - 11/26/2024 10:07 AM EDT Generic External Data Provider CLINISYNC F inal Result [facility] * (ABNORMAL) POCT Glycated hemoglobin, total (11/11/2024 11:35 AM EDT) Pathologist [facility] Hemoglobin A1C 7.7 Blood 11/11/2024 11:3 5 AM EDT Rio Thayer MD POINT OF CARE TEST ENTER/EDIT OR DERABLES Final Result * (ABNORMAL) Microalbumin / creatinine urine ratio (08/12/2024 11:13 AM EDT) Pathologist [facility] CREATININE, RANDOM URINE 26 20 - 275 [...] Performing Organization Information Site ID: [id number] Name: [facility] Address: [address] [place] [address], [address] [place] [phone] Director: Shashank Stahl MD Rio Thayer MD LAB URINE ORDERABLES Final Resul t [facility] * Diabetic Retinopathy Screening - OU - Both Eyes (01/18/2024) RESULTS normal Anatomical Region Laterality Modality Head Other 01/18/2024 Rio Thayer MD OPHTH PHOTOGRAPHY Final Result from Last 3 Months or Most Recently Relevant to Health Maintenance Insurance [employer] Care Teams Environmental Engineer Scientist Relationship Specialty Start Date End Date Rio Thayer MD 112 [facility] [address] [place], [place] [address] PCP - General Family Medicine 09/01/22 Rio Thayer MD [address] [place] [address] [address] PCP - Medical [place] 04/24/2404/23 Benito Llamas MD [address] [place] [address] [address] Referring Physician Dermatology 07/03/24 Eriberto Hdez DO [address] [place] [address] Otolaryngology 07/03/24 Candice Randle LPN [address] [place] [address] [address] 07/10/24
--- OUTSIDE RECORDS SUMMARY | 2025-02-05 11:25 | XMS_ITS | Encounter Summary ---
Author Organization [facility] Address [address] [facility] [place] [address] Care Team Providers Care Supervisor Boarding Name Role Phone Rio Murray MD Unavailable Rio Murray MD Primary Care Provider [phone] Britni Irwin RN Unavailable Benito Llamas MD Unavailable Unavailable Eriberto Hdez DO Unavailable Candice Randle LPN Unavailable Rio Murray MD Unavailable Encounter Details Date Type Department Care Team (Late st Contact Info) Description 07/20/2023 Abstract [facility] [place] [facility] [address] [facility] [address] [place] [address] Rio Murray MD [address] [facility] 110 [place], [place] [id number] Social History Tobacco Use Types Packs/Day Years [...] any clubs o r organizations such as caodaism groups, unions, fraternal or athletic groups, or [...] and heating? Not hard at all 11/01/2022 [facility] of Occupat ional Health - Occupational Stress [...] Med[facility] [address] [place] [address] Rio Murray MD [address] [place] [address] 06/05/2025 1:50 PM EST Office Visit [facility] [address] [place] [address] Zaina Leonardo MD [address] [place] [address] documented as of this encounter Visit Diagnoses Not on filedocumented in this encounter Care Teams Supervisor Boarding Relationship Specialty Start Date End Date Rio Murray MD [address] [facility] [address] [place] [address] PCP - Devoted 04/24/20 04/23/24 Rio Murray MD [address] [facility] [address] [place] [address] PCP - General Family Medicine 09/01/22 Rio Murray MD [address] [facility] 110 [place] [address] PCP - Medical [facility] 04/24/2404/23 Britni Irwin, RN [address] [place] [address] Clinical Advocate Family Medicine 05/31/24 07/10/24 Benito Llamas MD [address] [place] [address] Referring Physician Dermatology 07/03/24 Eriberto Hdez, [address] [place] [address] Otolaryngology 07/03/24 Candice Randle LPN [address] [facility] [address] [place] [address] 07/10/24 documented as of this encounter
--- OUTSIDE RECORDS SUMMARY | 2025-02-05 11:25 | XMS_ITS | Encounter Summary ---
Author Organization [facility] Address [address] [facility] [place] [address] Care Team Providers Care Tooth Cutter Pinion Name Role Phone Rio Murray MD Unavailable Rio Murray MD Primary Care Provider Britni Irwin RN Unavailable Benito Llamas MD Unavailable Unavailable Eriberto Hdez DO Unavailable Candice Randle LPN Unavailable Rio Murray MD Unavailable Encounter Details Date Type Department Care Team (Late st Contact Info) Description 09/14/2023 Abstract [facility] [place] [facility] [address] [facility] 110 [place] [address] Rio Murray MD [address] [facility] 110 [place], [place] [phone] Social History Tobacco Use Types Packs/Day Years [...] Recorded Patient Health Questionnaire-2 Score 0 08/08/2023 [facility] of Occupat ional Health - Occupational [...] place to sleep or slept in a chcf (including now)? No 11/01/2022 Comments Unknown Sex [...] [facility] [address] [place] [address] Rio Murray MD [address] [place] [address] 06/05/2025 1:50 PM EST Office Visit [facility] [place] [facility] [address] [place] [address] Zaina Leonardo MD [address] [place] [address] documented as of this encounter Visit Diagnoses Not on filedocumented in this encounter Care Teams Tooth Cutter Pinion Relationship Specialty Start Date End Date Rio Murray MD [address] [facility] [address] [place] [address] PCP - Devoted 04/24/20 04/23/24 Rio Murray MD [address] [facility] [address] [place] [address] PCP - General Family Medicine 09/01/22 Rio Murray MD [address] [facility] 110 [place] [address] PCP - Medical [facility] 04/24/2404/23 Britni Irwin, LINO [address] [place] [address] Clinical Advocate Family Medicine 05/31/24 07/10/24 Benito Llamas MD [address] [facility] [place] [address] Referring Physician Dermatology 07/03/24 Eriberto Hdez DO [address] [place] [address] Otolaryngology 07/03/24 Candice Randle LPN [address] [facility] [address] [place] [address] 07/10/24 documented as of this encounter
--- OUTSIDE RECORDS SUMMARY | 2025-02-05 11:25 | XMS_ITS | Encounter Summary ---
Author Organization [facility] Address [address] [facility] [place] [address] Care Team Providers Care Clinical Services Assistant Name Role Phone Rio Murray MD Primary Care Provider Benito Llamas MD Unavailable Unavailable Eriberto Hdez DO Unavailable Candice Randle WELL REACTIVATOR OPERATOR Unavailable Rio Murray MD Unavailable Encounter Details Date Type Department Care Team (Late st Contact Info) Description 11/22/2024 Abstract [facility] [place] [facility] 112 [facility] 110 [place] [address] Rio Murray MD 112 [facility] 110 [place], [place] [id number] Social History Tobacco Use Types Packs/Day Years [...] week 11/01/2022 How often do you attend [facility] or restorationism services? More than 4 times per year [...] Recorded Patient Health Questionnaire-2 Score 0 11/11/2024 [facility] - Occupational Stress Questionnaire Answer Date Recorded [...] Visit [facility] [place] [facility] [address] [facility] [address] [place] [address] Rio Murray MD [address] [facility] 110 [place] [address] 06/05/2025 1:50 PM EST Office Visit [facility] [address] [place] [address] Zaina Leonardo MD [address] [place] [address] documented as of this encounter Visit Diagnoses Not on filedocumented in this encounter Care Teams Clinical Services Assistant Relationship Specialty Start Date End Date Rio Murray MD [address] [facility] 110 [place] [address] PCP - General Family Medicine 09/01/22 Rio Murray MD [address] [facility] 110 [place] [address] PCP - Medical [facility] 04/24/2404/23 Benito Llamas MD [address] [facility] [address] [place] [address] Referring Physician Dermatology 07/03/24 Eriberto Hdez DO [address] [place] [address] Otolaryngology 07/03/24 Candice Randle LPN [address] [facility] [address] [place] [address] 07/10/24 documented as of this encounter
--- OUTSIDE RECORDS SUMMARY | 2025-02-05 11:25 | XMS_ITS | Encounter Summary ---
Author Organization [facility] Address [address] [place] [address] Phone Care Team Providers Care Coil Shaper Name Role Phone Rio Murray MD Primary Care Provider [phone] Encounter Details Date Type Department Care Team (Late st Contact Info) Description 11/11/2024 Scanned Document [facility] [address] [place] [address] Scanning, Generic Provider Social History Tobacco Use [...] Description 02/13/2025 10:45 AM EDT Office Visit [facility] 703 [facility] 250 [place] [address] Nagi Mcgill MD 917 [facility] 130 [place] [address] documented as of this encounter Visit Diagnoses Not on filedocumented in this encounter Care Teams Coil Shaper Relationship Specialty Start Date End Date Rio Murray MD 112 [facility] 110 [place] [address] PCP - General Family Medicine 11/11/24 documented as of this encounter
--- OUTSIDE RECORDS SUMMARY | 2025-02-05 11:25 | XMS_ITS | Encounter Summary ---
Author Organization [facility] Address [address] [place] [address] Phone Care Team Providers Care Medical Pathology Teacher Name Role Phone Rio Murray MD Primary Care Provider [phone] Encounter Details Date Type Department Care Team (Late st Contact Info) Description 06/24/2024 Scanned Document [facility] [address] [place] [phone] Scanning, Generic Provider Social History Tobacco Use [...] Description 02/13/2025 10:45 AM EDT Office Visit [facility] 703 [facility] 250 [place] [address] Nagi Mcgill MD 917 [facility] 130 [place] [address] documented as of this encounter Visit Diagnoses Not on filedocumented in this encounter Care Teams Medical Pathology Teacher Relationship Specialty Start Date End Date Rio Murray MD 112 [facility] 110 [place] [address] PCP - General Family Medicine 11/11/24 documented as of this encounter
--- OUTSIDE RECORDS SUMMARY | 2025-02-05 11:25 | XMS_ITS | Encounter Summary ---
Author Organization [facility] Address [address] [place] [address] Care Team Providers Care Podiatry Teacher Name Role Phone Rio Thayer MD Unavailable Rio Thayer MD Primary Care Provider Britni Irwin RN Unavailable Benito Llamas MD Unavailable Unavailable Eriberto Hdez DO Unavailable Candice Randle LPN Unavailable Rio Thayer MD Unavailable Encounter Details Date Type Department Care Team (Late st Contact Info) Description 07/20/2023 Clinisync Result Encounter [facility] External Department Unsolicited Rio Thayer MD [address] [facility] 110 [place] [address] Social History Tobacco Use Types [...] How often do you attend chur or restoration services? More than 4 times per year 11/01/2022 Do you belong to any clubs o r organizations such as holiness groups, unions, fraternal or athletic groups, or [...] and heating? Not hard at all 11/01/2022 [facility] of Occupat ional Health - Occupational Stress [...] 10:30 AM EDT Office Visit [facility] [place] [address] [facility] 110 [place] [address] Rio Thayer MD [address] [facility] [address] [place] [address] 06/05/2025 1:50 PM EST Office Visit [facility] [address] [place] [address] [place] [address] Zaina Leonardo MD [address] [place] [id number] documented as of this encounter Procedures Procedure Name Priority Date/Time Associated Diagnosis Comments XR DEXA AXIAL SKELETON 07/20/2023 11:42 AM EDT documented in this encounter Results * XR DEXA AXIAL SKELETON (07/20/2023 11:42 AM EDT) Anatomical Region Laterality Modality Other 07/20/2023 11:4 2 AM EDT Narrative 07/20/2023 11:45 AM EDT [address] [address] XRay Report Signed Patient: WILLIE ESPINOSA MR#: [id number] : 1940 Acct:[id number] Age/Sex: 83 / F ADM Date: 07/20/23 Loc: RAD Attending Dr: RIO THAYER Ordering Physician: RIO THAYER Date of Service: 07/20/23 Procedure(s): XR DEXA axial skeleton Accession Number(s): [id number] cc: RIO THAYER [address] [address] Patient Name: WILLIE ESPINOSA MRN: [id number] date: 1940 Sex: F Assigned Patient Location: [facility] Current Patient Location: [facility] Accession/Order Number: [id number] Exam Date: 07/20/2023 11:05 Report Date: 07/20/2023 [...] Signed By: 07/20/23 1145 DD/ 1142 TD/TT: Customer Service Administrator: Procedure Note Radiology, Radiologist, MD - 07/20/2023 [place] [address] XRay Report Signed Patient: WILLIE ESPINOSA R#: [id number] : 1940cct:[id number] Age/Sex: 83 / FADM Date: 07/20/23 Loc: [facility] Attending Dr: RIO THAYER Ordering Physician: RIO THAYER Date of Service: 07/20/23 Procedure(s): XR DEXA axial skeleton Accession Number(s): [id number] cc: RIO THAYER [place] [address] Patient Name: WILLIE ESPINOSA MRN: [id number] date: 1940 Sex: F Assigned Patient Location: [facility] Current Patient Location: [facility] Accession/Order Number: [id number] Exam Date: 07/20/2023 11:05 Report Date: 07/20/2023 [...] M.D. Signed By:07/20/23 1145 DD/ 1142 TD/TT: Customer Service Administrator: Rio Thayer MD [facility] Final Result documented in this encounter Visit Diagnoses Not on filedocumented in this encounter Care Teams Podiatry Teacher Relationship Specialty Start Date End Date Rio Thayer MD [address] [place] [address] [place] [address] PCP - Devoted 04/24/20 04/23/24 Rio Thayer MD [address] [place] [address] [place] [address] PCP - General Family Medicine 09/01/22 Rio Thayer MD [address] [place] [address] [place] [address] PCP - Medical [facility] 04/24/2404/23 Britni Irwin, LINO [address] [place] [address] Clinical Advocate Family Medicine 05/31/24 07/10/24 Benito Llamas MD [address] [place] [address] Referring Physician Dermatology 07/03/24 Eriberto Hdez DO [address] [place] [address] Otolaryngology 07/03/24 Candice Randle LPN [address] [place] [address] [place] [address] 07/10/24 documented as of this encounter
--- OUTSIDE RECORDS SUMMARY | 2025-02-05 11:25 | XMS_ITS | Encounter Summary ---
Author Organization [facility] Address [address] [place] [address] Care Team Providers Care Heel Edge Inker Machine Name Role Phone Rio Murray MD Unavailable Rio Murray MD Primary Care Provider Britni Irwin RN Unavailable Benito Llamas MD Unavailable Unavailable Eriberto Hdez Grace DO Unavailable Candice Randle LPN Unavailable Rio Murray MD Unavailable Encounter Details Date Type Department Care Team (Late st Contact Info) Description 05/22/[address] [facility] [place] [facility] [address] [place] [address] [place] [phone] A, Unknown Practice [address] [place] [address] Social History Tobacco Use Types [...] often do you attend chur ch or faith services? More than 4 times [...] and heating? Not hard at all 11/01/2022 [facility] of Occupat ional Health - Occupational Stress [...] [facility] [place] [facility] [address] [facility] 110 [place] [address] Rio Murray MD [address] [place] [address] [place] [address] 06/05/2025 1:50 PM EST Office Visit [facility] [address] [place] [address] [place] [address] Zaina Leonardo MD [address] [place] [address] documented as of this encounter Procedures Procedure [...] on filedocumented in this encounter Care Teams Heel Edge Inker Machine Relationship Specialty Start Date End Date Rio Murray MD [address] [facility] 110 [place] [address] PCP - Devoted 04/24/20 04/23/24 Rio Murray MD [address] [facility] [address] [place] [address] PCP - General Family Medicine 09/01/22 Rio Murray MD [address] [facility] 110 [place] [address] PCP - Medical [facility] 04/24/2404/23 Britni Irwin, LINO [address] [place] [address] Clinical Advocate Family Medicine 05/31/24 07/10/24 Benito Llamas MD [address] [facility] [address] [facility] [address] Referring Physician Dermatology 07/03/24 Eriberto Hdez DO [address] [place] [address] Otolaryngology 07/03/24 Candice Randle LPN [address] [facility] 110 [place] [address] 07/10/24 documented as of this encounter
--- OUTSIDE RECORDS SUMMARY | 2025-02-05 11:26 | XMS_ITS | Encounter Summary ---
Author Organization [facility] Address [address] [facility] [place] [address] Care Team Providers Care Pharmacy District Manager Name Role Phone Rio Murray MD Unavailable Rio Murray MD Primary Care Provider [phone] Britni Irwin RN Unavailable [phone] Benito Llamas MD Unavailable Unavailable Eriberto Hdez DO Unavailable Candice Randle LPN Unavailable Rio Murray MD Unavailable Encounter Details Date Type Department Care Team (Late st Contact Info) Description 02/21/2023 Abstract [facility] [place] [facility] [address] [facility] 110 [place] [address] Rio Murray MD [address] [facility] 110 [place], [place] [id number] Social History Tobacco Use Types Packs/Day Years [...] How often do you attend chur or anglican services? More than 4 times per year 11/01/2022 Do you belong to any clubs o r organizations such as zoroastrianism groups, unions, fraternal or athletic groups, or [...] Not hard at all 11/01/2022 [facility] [place] of Occupat ional Health - Occupational Stress [...] Medince [address] [place] [address] [place] [address] Rio Murray MD [address] [place] [address] [place] [address] 06/05/2025 1:50 PM EST Office Visit [facility] [address] [place] [address] [place] [address] Zaina Leonardo MD [address] [place] [address] [place] [address] documented as of this encounter Visit Diagnoses Not on filedocumented in this encounter Care Teams Pharmacy District Manager Relationship Specialty Start Date End Date Rio Murray MD [address] [facility] [address] [place] [address] PCP - Devoted 04/24/20 04/23/24 Rio Murray MD [address] [facility] [address] [place] [address] PCP - General Family Medicine 09/01/22 Rio Murray MD [address] [facility] 110 [place] [address] PCP - Medical [facility] 04/24/2404/23 Britni Irwin, RN [address] [place] [address] Clinical Advocate Family Medicine 05/31/24 07/10/24 Benito Llamas MD [address] [place] [address] Referring Physician Dermatology 07/03/24 Eriberto Hdez, [address] [place] [address] Otolaryngology 07/03/24 Candice Randle LPN [address] [facility] [address] [place] [address] 07/10/24 documented as of this encounter
--- OUTSIDE RECORDS SUMMARY | 2025-02-05 11:26 | XMS_ITS | Encounter Summary ---
Author Organization [facility] Address [address] [facility] [place] [address] Care Team Providers Care Can Runner Name Role Phone Rio Murray MD Unavailable Rio Murray MD Primary Care Provider Britni Irwin RN Unavailable [phone] Benito Llamas MD Unavailable Unavailable Eriberto Hdez DO Unavailable Candice Randle LPN Unavailable Rio Murray MD Unavailable Encounter Details Date Type Department Care Team (Late st Contact Info) Description 01/05/2023 Abstract [facility] [place] [facility] [address] [facility] 110 [place] [address] Rio Murray MD [address] [facility] 110 [place], [place] [id number] Social History Tobacco Use Types Packs/Day Years [...] How often do you attend chur or yarsanism services? More than 4 times per year [...] and heating? Not hard at all 11/01/2022 [facility] of Occupat ional Health - [...] [facility] [address] [facility] [address] [place] [phone] Rio Murray MD [address] [facility] [address] [place] [address] 06/05/2025 1:50 PM EST Office Visit [facility] [address] [place] [address] [place] [address] Zaina Leonardo MD [address] [place] [address] [place] [address] documented as of this encounter Visit Diagnoses Not on filedocumented in this encounter Care Teams Can Runner Relationship Specialty Start Date End Date Rio Murray MD [address] [facility] [address] [place] [address] PCP - Devoted 04/24/20 04/23/24 Rio Murray MD [address] [facility] [address] [place] [address] PCP - General Family Medicine 09/01/22 Rio Murray MD [address] [facility] [address] [place] [address] PCP - Medical [facility] 04/24/2404/23 Britni Irwin, RN [address] [place] [address] Clinical Advocate Family Medicine 05/31/24 07/10/24 Benito Llamas MD [address] [place] [address] Referring Physician Dermatology 07/03/24 Eriberto Hdez DO [address] [place] [address] Otolaryngology 07/03/24 Candice aRndle LPN [address] [facility] 110 [place] [address] 07/10/24 documented as of this encounter
--- OUTSIDE RECORDS SUMMARY | 2025-02-05 11:26 | XMS_ITS | Encounter Summary ---
Author Organization [facility] Address [address] [facility] [place] [address] Care Team Providers Care Hospitality Aide Name Role Phone Rio Murray MD Unavailable Rio Murray MD Primary Care Provider [phone] Britni Irwin RN Unavailable [phone] Benito Llamas MD Unavailable Unavailable Eriberto Hdez DO Unavailable Candice Randle LPN Unavailable Rio Murray MD Unavailable Encounter Details Date Type Department Care Team (Late st Contact Info) Description 02/07/[address] [place] [facility] [address] [facility] 110 [place] [address] Rio Murray MD [address] [facility] 110 [place], [place] [phone] Social History Tobacco Use Types Packs/Day Years [...] How often do you attend chur or taoism services? More than 4 times per year 11/01/2022 Do you belong to any clubs o r organizations such as restoration groups, unions, fraternal or athletic groups, or [...] and heating? Not hard at all 11/01/2022 [facility] of Occupat ional Health - [...] [facility] [address] [facility] [address] [place] [phone] Rio Murray MD [address] [facility] [address] [place] [address] 06/05/2025 1:50 PM EST Office Visit [facility] [address] [place] [address] [place] [address] Zaina Leonardo MD [address] [place] [address] [place] [address] documented as of this encounter Visit Diagnoses Not on filedocumented in this encounter Care Teams Hospitality Aide Relationship Specialty Start Date End Date Rio Murray MD [address] [facility] [address] [place] [address] PCP - Devoted 04/24/20 04/23/24 Rio Murray MD [address] [facility] [address] [place] [address] PCP - General Family Medicine 09/01/22 Rio Murray MD [address] [facility] [address] [place] [address] PCP - Medical [facility] 04/24/2404/23 Britni Irwin, RN [address] [place] [address] Clinical Advocate Family Medicine 05/31/24 07/10/24 Benito Llamas MD [address] [place] [address] Referring Physician Dermatology 07/03/24 Eriberto Hdez DO [address] [place] [place] [address] Otolaryngology 07/03/24 Candice Randle LPN [address] [facility] 110 [place] [address] 07/10/24 documented as of this encounter
--- OUTSIDE RECORDS SUMMARY | 2025-02-05 11:27 | XMS_ITS | CCD ---
Author Organization [facility] Care Team Providers Care Wine Maker Name Role Phone JEOVANY, DR BAUM Attending Unavailable JEOVANY, DR BAUM Consulting Unavailable JEOVANY, DR BAUM Primary Care Unavailable JEOVANY, DR BAUM Admitting Unavailable [place], DR ALISA Shaffer Consulting Unavailable Bautista Thayer MD Unavailable Bautista Thayer MD Primary Care Provider Bautista Thayer MD Unavailable Dc HUYNH, Britni Unavailable [phone] Korey Valencia DO Attending Provider [phone] Bautista Thayer MD Primary Care Provider Korey Valencia DO Attending Provider Bautista Thayer MD Primary Care Provider Vernell Llamas MD Unavailable Eriberto Hdez DO Unavailable Candice Randle LPN Unavailable Unavailable Bautista [...] Attending Unavailable BAUTISTA THAYER Attending Unavailable NAGI JAMES Attending Unavailable JEOVANYBAUTISTAALAY Primary Care Unavailable NAGI JAMES Referring Unavailable NAGI JAMES Referring Unavailable JEOVANY, RUGEN MABALAY Primary Care Unavailable NAGI JAMES Attending Unavailable NAGI JAMES Referring Unavailable JEOVANY, RUGEN MABALAY Primary Care Unavailable NAGI JAMES Attending Unavailable NAGI JAMES Referring Unavailable JEOVANY, RUGEN MABALAY Primary Care Unavailable Bautista Thayer MD Primary Care Provider Nagi James MD Attending Provider [phone] JeovanyJoshen M Primary Care Unavailable Korey Valencia Attending Unavailable Korey Valencia Admitting Unavailable Nagi James Admitting Unavailable Jeovany, Joshen M Primary Care Unavailable Nagi James Attending Unavailable [place], Joshen M Primary Care Unavailable Korey Valencia Attending Unavailable Korey Valencia Admitting Unavailable Allergies Allergy Classification Reported Allergen(s) Allergy Type Date of Onset Reaction(s) Facility (20 sources) Aluminum aspirin; Translations: [ASPIRIN] Drug Allergy 3 [facility] (20 sources) gabapentin Drug Allergy 7 [facility] (3 sources) Aspirin Drug Allergy 3 [facility] (1 source) Aspirin Drug Allergy 5 [facility] Repository Medications Current Medications Medication Drug Class(es) Dates Sig (Normalized) Sig (Original) acetaminophen 500 mg oral tablet (20 sources) Start: 06-24-2024 take 2 tablets by mouth every six hours as needed for pain take 1 tablet by rossana th every six hours as needed acetaminophen (Tylenol) 500 MG tablet Ta ke 500 mg by mouth every 6 (six) hours if needed. Active [id number] 200 actuat albuterol 0.09 mg/actuat metered dose inhaler (20 sources) beta2-Adrenergic Agonist Start: 11-11-2024 take 2 puff(s) by inhalation every six hours albuterol 90 mcg/actuation inhaler Inhale 2 puffs every 6 hours if needed for shortness of breath. 11/11/2024 Active Start: 06-24-2024 take 2 puff(s) by in halation every four hours as needed for wheezing Start: 10-04-2023 End: 11-11-2024 take 2 puff(s) [...] 1 tablet by mouth three times daily as needed for muscle spasms benzonatate 200 mg oral capsule (4 sources) Non-narcotic Antitussive Start: 04-11-2023 take 1 capsule by mouth three times daily as needed for cough benzonatate (Tessalon) 200 MG capsule Indications: Bronchitis with bronchospasm Take 1 capsule (200 mg) by mouth 3 (three) times a day as needed for cough Do not crush or chew. 21 capsule 1 04/11/2023 Active cephalexin 500 mg oral capsule (18 sources) Cephalosporin Antibacterial Start: 06-20-2024 End: 08-12-2024 take 1 capsule by mouth twice daily Start: 04-09-2024 End: 04-19-2024 take 1 capsule [...] Blood Gluc Receiv er (FreeStyle Ivy [employer] [place]) device (20 sources) Start: 08-22-2022 Continuous Blo od Gluc Painter And Decorator Apprentice (FreeStyle Ivy [employer] [place]) device USE DIRECTED DAILY FOR 365 DAYS 08/22/2022 Active Start: 08-22-2022 Continuous Blo od Gluc Painter And Decorator Apprentice (FreeStyle Ivy [employer] [place]) device USE DIRECTED DAILY FOR 365 DAYS 0 08/22/2022 Active Continuous Blood Gluc Sensor (FreeStyle Ivy 2 Sensor) misc (4 sources) Start: 08-22-2022 Continuous Blo od Gluc Sensor (FreeStyle Ivy 2 Sensor) misc USE 1 SENSOR EVERY 14 DAYS 0 08/22/2022 Active Continuous Glucose Painter And Decorator Apprentice (FreeStyle Ivy 2 [employer] [place]) device (9 sources) Start: 08-20-2024 Continuous Glu cose Painter And Decorator Apprentice (FreeStyle Ivy [employer] [place]) device Indications: Uncontrolled type 2 diabetes mellitus with hypoglycemia, unspecified hypoglycemia coma status (HCC) Inject 1 Device under the skin Daily 1 each 08/20/2024 Active Start: 08-20-2024 Continuous Glu cose Painter And Decorator Apprentice (FreeStyle Ivy 2 [employer] [place]) device Indications: Uncontrolled type 2 diabetes mellitus with hypoglycemia, unspecified hypoglycemia coma status (CMS/HCC) Inject 1 Device under the skin Daily 1 each 08/20/2024 Active Continuous Glucose Sensor (FreeStyle Ivy 2 Sensor) misc (20 sources) Start: 08-20-2024 Continuous Glu cose Sensor (FreeStyle Ivy 2 Sensor) [facility] Indications: Uncontrolled type 2 diabetes mellitus with [...] Glucose Sensor (F reeStyle Ivy 2 Sensor) [facility] USE 1 SENSOR EVERY 14 DAYS 01/18/2024 [...] take 1 capsule by mouth every week Start: 12-27-2022 End: 05-16-2024 take 1 capsule by mouth every week ergocalciferol (Vitamin D2) 1.25 MG (09162 UT) capsule Indications: Vitamin D deficiency Take 1 capsule (1.25 mg) by mouth 1 (one) time per week 12 capsule 3 05/18/2024 Active Flash Glucose Sensor (Freest yle Ivy 2 Sensor) kit (3 sources) Start: 06-24-2024 Flash Glucose Sensor (Freestyle [...] supply 60 mL 11 02/29/2024 Active furosemide 40 mg oral tablet [...] take 1 tablet by mouth once daily gabapentin 100 mg oral capsule (4 sources) [...] / neomycin 3.5 mg/ml / polymyxin b 00006 unt/ml otic suspension (2 sources) Aminoglycoside Antibacterial, Polymyxin-class Antibacterial, Corticosteroid Start: 06-08-2023 End: 06-15-2023 neomycin-polymyx in-hydrocortison e (Cortisporin) [id number] otic suspension Indications: Acute diffuse otitis externa [...] 6 Units before bedtime. 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 Inject with meals. 0 04/25/2023 04/19/2024 Active 3 ml insulin degludec 200 un t/ml pen injector (20 sources) Insulin Analog Start: 06-24-2024 Start: 08-08-2023 End: 08-12-2024 inject 30 [IU] by subcutaneous injection at bedtime Tresiba FlexTouch 200 UNIT/ML injection Indications: Uncontrolled type 2 diabetes mellitus with hypoglycemia, unspecified hypoglycemia coma status ([facility]) INJECT 30 UNITS SUBCUTANEOUSLY AT BEDTIME 13.5 mL 3 04/05/2024 08/12/2024 Discontinued (Cost of medication) Start: 05-03-2023 inject 76 [IU] by ghosh bcutaneous injection at bedtime Tresiba FlexTouch 200 UNIT/ML injection Indications: Uncontrolled type 2 diabetes mellitus with hypoglycemia, unspecified hypoglycemia coma status (HCC) ([facility]) INJECT 76 UNITS SUBCUTANEOUSLY AT BEDTIME 9 [...] ml insulin glargine 300 unt/ml pen injector (16 sources) Insulin Analog Start: 10-24-2024 End: 10-24-2025 Toutwyla SoloStar U-300 Insulin 300 unit/mL (1.5 mL) pen Inject 33 Units under the skin once daily in the evening. Take with meals. 10/24/2024 10/24/2025 Active Start: 10-24-2024 End: 10-24-2025 insulin glargine (Toujeo Serena oStar) 300 UNIT/ML injection Indications: Uncontrolled type 2 diabetes mellitus with hypoglycemia without coma (HCC) Inject 33 Units under the skin at bedtime 9.9 mL 3 10/24/2024 10/24/2025 Active Start: 08-12-2024 inject 30 [...] ml insulin lispro-aabc 100 unt/ml pen injector (13 sources) Insulin Analog Start: 11-11-2024 End: 12-11-2024 insulin lispro-aabc (Lyumdanny Hackett) 100 UNIT/ML pen Indications: Uncontrolled type 2 [...] bedtime 15 mL 09/05/2024 11/11/2024 Discontinued (Reorder) inject 8 [IU] by sub cutaneous injection twice daily insulin lispro-aabc (Lyumjev KwikPen U-100 Insulin) 100 unit/mL insulin pen Inject 8 Units under the skin 2 times a day. Take as directed per insulin instructions. Active levothyroxine sodium 0.05 mg oral tablet (20 sources) l-Thyroxine Start: 09-23-2024 take 1 tablet by mouth once daily before mealtime levothyroxine (Synthroid, Levoxyl) 50 mcg tablet Take 1 tablet (50 mcg) by mouth once daily in the morning. Take before meals. Take on an empty stomach 09/23/2024 Active Start: 06-24-2024 take 1 capsule by mo uth once daily in the morning Start: 06-26-2023 take 1 tablet by rossana [...] take 1 tablet by mouth once daily in the morning magnesium oxide 400 mg oral tablet (2 sources) Start: 12-19-2024 End: 12-19-2025 take 1 tablet [...] 4 mg before bedtime. 0 08/25/2022 Active polyethylene glycol 400 10 mg/ml ophthalmic solution (1 source) Start: 06-24-2024 Polyethylene Glycol 400 (Dry Eye [...] 12:00am rosuvastatin calcium 10 mg oral tablet (2 sources) HMG-CoA Reductase Inhibitor Start: 12-19-2024 End: 12-19-2025 [...] health services in other specified circumstances] Onset: 5 11-21-2024 Episodic Asthma (20 sources) Asthma; Translations: [Unspecified asthma, uncomplicated] Onset: 3 03-27-2023 Chronic Blindness and vision defects (6 sources) Blurring of visual image; Translations: [Other visual disturbances] Onset: 5 11-21-2024 Episodic Cancer of bronchus; lung (6 sources) History of malignant neoplasm of thoracic cavity structure; Translations: [Personal history of other malignant neoplasm of bronchus and lung] Onset: 5 11-21-2024 Episodic Cancer of colon (20 sources) Malignant tumor of sigmoid colon; Translations: [Malignant neoplasm of sigmoid colon] Onset: 3 10-18-2022 Chronic Cancer of colon (20 sources) History of malignant neoplasm of colon; Translations: [Personal history of other malignant neoplasm of large intestine] Onset: 1 01-23-2023 Episodic Cardiac dysrhythmias (8 sources) Sick sinus syndrome; Translations: [Nonsustained ventricular tachycardia ] Onset: 5 01-02-2025 Chronic Cataract (20 sources) Bilateral cataracts; Translations: [Unspecified cataract] Onset: 3 10-18-2022 Chronic Chronic kidney disease (20 sources) Chronic kidney disease stage 3; Translations: [Stage 3 chronic kidney disease (HCC)] Onset: 3 10-18-2022 Chronic Chronic kidney disease (2 sources) Chronic kidney disease; Translations: [Chronic kidney disease, stage 3 unspecified (Multi)] Onset: 5 Conditions associated with dizziness or vertigo (20 sources) Dizziness; Translations: [Dizziness and giddiness] Onset: 4 08-08-2023 Episodic Conduction disorders (5 sources) Second degree atrioventricular block; Translations: [Atrioventricular block, second degree] Onset: 5 01-02-2025 Chronic Congestive heart failure; nonhypertensive (12 sources) Acute diastolic heart failure; Translations: [Acute diastolic (congestive) heart failure] Onset: 5 11-21-2024 Chronic Coronary atherosclerosis and other heart disease (20 sources) Ischemic chest pain; Translations: [Chronic ischemic heart disease, unspecified] Onset: 4 04-25-2023 Chronic Diabetes mellitus with complications (20 sources) Type 2 diabetes mellitus with diabetic chronic kidney disease; Translations: [Neuropathy due to diabetes mellitus] Onset: 2 10-18-2022 Chronic Diabetes mellitus without complication (20 sources) Brittle diabetes mellitus; Translations: [Type 1 diabetes mellitus without complications] Onset: 4 04-25-2023 Chronic Disorders of lipid metabolism (20 sources) Mixed hyperlipidemia; Translations: [Mixed hyperlipidemia] Onset: 3 10-18-2022 Chronic Esophageal disorders (20 sources) Gastroesophageal reflux disease; Translations: [Gastro-esophageal reflux disease without esophagitis] Onset: 3 10-18-2022 Chronic Essential hypertension (20 sources) Essential (primary) hypertension; Translations: [Essential hypertension] Onset: 2 Chronic Heart valve disorders (14 sources) Mitral valve regurgitation; Translations: [Nonrheumatic mitral (valve) insufficiency] Onset: 5 11-21-2024 Chronic Heart valve disorders (10 sources) Heart murmur; Translations: [Cardiac murmur, unspecified] Onset: 5 11-21-2024 Episodic Hypertension with complications and secondary hypertension (20 sources) 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; Translations: [Hypertensive heart and chronic kidney disease without heart failure, with stage 1 through stage 4 chronic kidney disease, or unspecified chronic kidney disease] Onset: 3 10-18-2022 Chronic Immunizations and screening for infectious disease (6 sources) Patient encounter status; Translations: [Encounter for immunization] Onset: 5 02-06-2024 Episodic Malaise and fatigue (4 sources) Fatigue; Translations: [Chronic fatigue, unspecified] Onset: 5 11-21-2024 Chronic Malaise and fatigue (4 sources) Fatigue; Translations: [Other fatigue] Onset: 5 11-21-2024 Episodic Neoplasms of unspecified nature or uncertain behavior (2 sources) Neoplastic disease; Translations: [Neoplasm of unspecified behavior of bone, soft tissue, and skin] 02-29-2024 Episodic Nonspecific chest pain (20 sources) Chest pain, unspecified; Translations: [Chest pain] Onset: 2 11-11-2024 Episodic Nutritional deficiencies (20 sources) Vitamin D deficiency; Translations: [Vitamin D deficiency, unspecified] Onset: 3 10-18-2022 Chronic Osteoarthritis (20 sources) Osteoarthritis of hip; Translations: [Osteoarthritis of hip, unspecified] Onset: 3 10-18-2022 Chronic Other acquired deformities (6 sources) Surgical wound finding; Translations: [Acquired deformity of nose] 06-22-2024 Episodic Other aftercare (2 sources) USP (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 of insulin; 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Multi)] Onset: 5 Episodic Other and ill-defined heart disease (8 sources) Left ventricular hypertrophy; Translations: [Cardiomegaly] Onset: 5 11-21-2024 Chronic Other and ill-defined heart disease (4 sources) Bilateral enlargement of atria; Translations: [Cardiomegaly] Onset: 5 11-21-2024 Chronic Other and ill-defined heart disease (9 sources) Diastolic dysfunction; Translations: [Other ill-defined heart diseases] Onset: 5 11-21-2024 Chronic Other and ill-defined heart disease (2 sources) Cardiomegaly; Translations: [Cardiomegaly] Onset: 5 Chronic Other and ill-defined heart disease (2 sources) Other ill-defined heart diseases; Translations: [Other ill-defined heart diseases] Onset: 5 Chronic Other connective tissue disease (2 sources) Pain in left foot; Translations: [Pain in left foot] 06-08-2023 Episodic Other ear and sense organ disorders (2 sources) Acute otitis externa; Translations: [Diffuse otitis externa, bilateral] 06-08-2023 Episodic Other endocrine disorders (20 sources) Hypoglycemia; Translations: [Hypoglycemia, unspecified] Onset: 3 10-18-2022 Chronic Other endocrine disorders (4 sources) Diabetes insipidus; Translations: [Diabetes insipidus] Onset: 3 12-27-2022 Chronic Other endocrine disorders (20 sources) Diabetes insipidus; Translations: [Diabetes insipidus] Onset: 3 12-27-2022 Chronic Other hereditary and degenerative nervous system conditions (20 sources) Restless legs; Translations: [Restless legs syndrome] Onset: 3 10-18-2022 Chronic Other inflammatory condition of skin (2 sources) Psoriasis vulgaris; Translations: [Psoriasis vulgaris] 02-29-2024 Chronic Other injuries and conditions due to external causes (5 sources) History of fall; Translations: [History of falling] Onset: 5 11-21-2024 Episodic Other injuries and conditions due to external causes (2 sources) History of falling; Translations: [History of falling] Onset: 5 Episodic Other lower respiratory disease (1 source) Shortness of breath; Translations: [SHORTNESS OF BREATH] Onset: 2 Episodic Other lower respiratory disease (5 sources) Orthopnea; Translations: [Orthopnea] Onset: 5 11-21-2024 Episodic Other lower respiratory disease (1 source) Orthopnea; Translations: [Orthopnea] Onset: 5 Episodic Other non-traumatic joint disorders (2 sources) Acute ankle pain; Translations: [Pain in left ankle and joints of left foot] 06-08-2023 Episodic Other nutritional; endocrine; and metabolic disorders (16 sources) Morbid obesity; Translations: [Morbid (severe) obesity due to excess calories] Onset: 3 12-27-2022 Chronic Other nutritional; endocrine; and metabolic disorders (20 sources) Body mass index 40+ - severely obese; Translations: [Body mass index (BMI) 40.0-44.9, adult] Onset: 1 Resolved: 4 01-23-2023 Chronic Other nutritional; endocrine; and metabolic disorders (20 sources) Obesity caused by energy imbalance; Translations: [Morbid (severe) obesity due to excess calories] Onset: 3 05-16-2024 Chronic Other nutritional; endocrine; and metabolic disorders (20 sources) Body mass index 30+ - obesity; Translations: [Body mass index (BMI) 35.0-35.9, adult] Onset: 5 05-16-2024 Chronic Other nutritional; endocrine; and metabolic disorders (2 sources) Morbid (severe) obesity due to excess calories; Translations: [Morbid (severe) obesity due to excess calories (Multi)] Onset: 5 Chronic Other nutritional; endocrine; and metabolic disorders (2 sources) Obesity, unspecified; Translations: [Obesity, unspecified] Onset: 5 Chronic Other screening for suspected conditions (not mental disorders or infectious disease) (5 sources) Ambulatory ECG abnormal; Translations: [Abnormal electrocardiogram [ECG] [EKG]] Onset: 5 01-02-2025 Episodic Other skin disorders (4 sources) Seborrheic keratosis; Translations: [Other seborrheic keratosis] 02-29-2024 Episodic Other skin disorders (4 sources) Inflamed seborrheic keratosis; Translations: [Inflamed seborrheic keratosis] 02-29-2024 Episodic Other skin disorders (2 sources) Milia; Translations: [Epidermal cyst] 12-05-2024 Episodic Peripheral and visceral atherosclerosis (20 sources) Atherosclerosis of aorta; Translations: [Atherosclerosis of aorta] Onset: 4 11-07-2023 Chronic Residual codes; unclassified (9 sources) Localized edema; Translations: [Localized edema] Onset: 5 11-21-2024 Episodic Residual codes; unclassified (6 sources) Never smoked tobacco; Translations: [Other specified health status] Onset: 5 11-21-2024 Episodic Residual codes; unclassified (1 source) Localized edema; Translations: [Localized edema] Onset: 5 Episodic Residual codes; unclassified (2 sources) Other specified health status; Translations: [Other specified health status] Onset: 5 Episodic Spondylosis; intervertebral disc disorders; other back problems (20 sources) Degeneration of lumbar intervertebral disc; Translations: [Other intervertebral disc degeneration, lumbar region] Onset: 7 10-18-2022 Chronic Syncope (12 sources) Near syncope; Translations: [Syncope and collapse] Onset: 5 11-21-2024 Episodic Thyroid disorders (20 sources) Hypothyroidism; Translations: [Hypothyroidism, unspecified] Onset: 3 10-18-2022 Chronic Unclassified (1 source) First encounter by subject 11-21-2024 Unclassified (1 source) Patient encounter status 12-19-2024 Unclassified (1 source) Other ventricular tachycardia; Translations: [Other ventricular tachycardia] Onset: 5 Past or Other Problems Problem Classification Problem [...] delayed healing] Onset: 06-26-2023 06-26-2023 Episodic Other aftercare (1 source) Encounter for other plastic and reconstructive surgery following medical procedure or healed injury; Translations: [Encounter for other plastic and reconstructive surgery following medical procedure or healed injury] Onset: 06-27-2024 Episodic Other and unspecified benign neoplasm (20 [...] Onset: 03-27-2023 Resolved: 06-08-2023 06-08-2023 Episodic Other non-epithelial cancer of skin (20 sources) Basal cell carcinoma of nose; Translations: [Basal cell carcinoma of skin of nose] Onset: 08-12-2024 06-20-2024 Episodic Other skin disorders (20 sources) Actinic keratosis; [...] lumbar region] Onset: 08-01-2016 01-23-2023 Episodic Unclassified (3 sources) Onset: 11-21-2024 Resolved: 01-02-2025 11-21-2024 Unclassified (1 source) Other ventricular tachycardia; Translations: [Other ventricular tachycardia] Onset: 01-02-2025 Results Test Name Value Interpretation Reference Range Facility ECG 12 [place] 01-02-2025 [facility] Work Phone: ALL CBC WITH AUTO DIFFon BASOPHILS ABSOLUTE AUTO 0 [facility] Basophils/100 WBC (Bld) 0.3 % 0.2 - 2.0 % [facility] Eosinophils/100 WBC (Bld) 1 % 0.9 - 7.0 % [facility] Erythrocyte distribution width (RBC) [Ratio] 13.7 % 11.0 - 15.0 % [facility] Hematocrit (Bld) [Volume fraction] 36.8 % 36.0 - 48.0 % [facility] Hemoglobin (Bld) [Mass/Vol] 11.7 g/dL Low 12.0 - 16.0 g/dL [facility] IMMATURE GRANULOCYTES ABS AUTO 0.05 High [facility] Immature granulocytes/100 WBC (Bld) 0.6 % High 0.0 - 0.5 % [facility] Interpretation and review of laboratory results Abnormal [facility] LYMPHOCYTES ABSOLUTE AUTO 1.9 [facility] Lymphocytes/100 WBC (Bld) 21 % 20.5 - 60.0 % [facility] MCH (RBC) [Entitic mass] 29.4 pg 26.7 - 34.0 pg [facility] MCHC (RBC) [Mass/Vol] 31.8 g/dL 29.9 - 35.2 g/dL [facility] MCV (RBC) [Entitic vol] 92.5 fL 81.0 - 99.0 fL [facility] MONOCYTES ABSOLUTE AUTO 0.7 [facility] Monocytes/100 WBC (Bld) 7.7 % 1.7 - 12.0 % [facility] NEUTROPHILS ABSOLUTE AUTO 6.3 [facility] Neutrophils/100 WBC (Bld) 69.4 % 43.0 - 75.0 % [facility] Platelet mean volume (Bld) [Entitic vol] 10.3 fL 9.5 - 13.5 [facility]L [facility]1 [facility] PLT 224 [facility] RBC 3.98 Low [facility] WBC 9 [facility] No Panel Informationon 12-05 [facility], [facility]–1983 ALL CBC WITH AUTO DIFFon BASOPHILS ABSOLUTE AUTO 0 [facility] Basophils/100 WBC (Bld) 0.4 % 0.2 - 2.0 % [facility] Eosinophils/100 WBC (Bld) 2 % 0.9 - 7.0 % [facility] Erythrocyte distribution width (RBC) [Ratio] 13.8 % 11.0 - 15.0 % [facility] Hematocrit (Bld) [Volume fraction] 35.1 % Low 36.0 - 48.0 % [facility] Hemoglobin (Bld) [Mass/Vol] 11 g/dL Low 12.0 - 16.0 g/dL [facility] IMMATURE GRANULOCYTES ABS AUTO 0.05 High [facility] Immature granulocytes/100 WBC (Bld) 0.7 % High 0.0 - 0.5 % [facility] Interpretation and review of laboratory results Abnormal [facility] LYMPHOCYTES ABSOLUTE AUTO 2.1 [facility] Lymphocytes/100 WBC (Bld) 28.4 % 20.5 - 60.0 % [facility] MCH (RBC) [Entitic mass] 28.9 pg 26.7 - 34.0 pg [facility] MCHC (RBC) [Mass/Vol] 31.3 g/dL 29.9 - 35.2 g/dL [facility] MCV (RBC) [Entitic vol] 92.1 fL 81.0 - 99.0 fL [facility] MONOCYTES ABSOLUTE AUTO 0.5 [facility] Monocytes/100 WBC (Bld) 7.2 % 1.7 - 12.0 % [facility] NEUTROPHILS ABSOLUTE AUTO 4.6 [facility] Neutrophils/100 WBC (Bld) 61.3 % 43.0 - 75.0 % [facility] Platelet mean volume (Bld) [Entitic vol] 10.7 fL 9.5 - 13.5 fL [facility] EO # 0.2 [facility] PLT 184 [facility] RBC 3.81 Low [facility] WBC 7.5 [facility] ECG 12 Leadon 11-21-2024 [facility] Work Phone: Laboratory - Hematology and Cell countson 11-11-2024 HbA1c (Bld) [Mass fraction] 7.7 % [facility] No Panel Informationon 11-11 Interpretation and review of laboratory results Abnormal Formerly [facility], 1928–1983 ALBUMIN, RANDOM URINE W/CREA TININEon 08-13-2024 ALBUMIN, URINE 1.1 mg/dL Normal See Note: [facility] Comment on above: Result Comment: Refe rence Range: Reference Range Not established Performed By: #### 6 517 #### [facility] [address], [address] [place] [address] Pallet Sorter: Shashank Stahl MD ALBUMIN/CREATININE RATIO, RANDOM URINE [...] By: #### 6 517 #### [facility] [place] [address] Pallet Sorter: Shashank Stahl MD Creatinine (U) [Mass/Vol] 26 mg/dL Normal 20-275 [facility] Comment on above: Performed By: #### 6 517 #### [facility] [place] [address] Pallet Sorter: Shashank Stahl MD TSH W/REFLEX TO FT4on 2024 TSH W/REFLEX TO FT4 1.28 mIU/L Normal 0.40-4.50 [facility] Comment on above: Performed By: #### 3 [id number] #### [facility] [address], [address] [place] [address] Pallet Sorter: Shashank Stahl MD Laboratory - Hematology and Cell countson 08-12-2024 HbA1c (Bld) [Mass fraction] 7.6 % [facility] No Panel Informationon 08-12 Interpretation and review of laboratory results Abnormal Formerly [facility], [facility] Pathology study report docum entOrdered By: Maciej Brown on 07-01-2024 Pathology study [facility] Other Glucose Glucometer (dC) [M ass/Vol]Ordered By: Korey Valencia on 06-27-2024 Glucose [Mass/Vol] Capillary blood glucose measurement by glucometer (mass/volume) [facility] Comment on above: Random Glucose Refer ence Range is dependent on time and content of last meal. Glucose of more than 200 mg/dL in a nonstressed, ambulatory subject supports the diagnosis of Diabetes Mellitus. Glucose Poct Glucometerson 0 06-27-2024 Commemt1 Glu2: Cleaned Meter Normal [facility] Comment on above: Result Comment: PERF ORMED BY: [address] [place] [address] PATHOLOGIST ELECTRICAL AND INSTRUMENTATION MANAGER MIGUELITO JAIMES M.D. Performed By: #### G LULS #### Point of Care testing , Glucose [Mass/Vol] 110 mg/dL Normal [facility] Comment on above: Result Comment: [place] om Glucose Reference Range is dependent on time and content of last meal. Glucose of more than 200 mg/dL in a nonstressed, ambulatory subject supports the diagnosis of Diabetes Mellitus. Performed By: #### G LULS #### Point of Care testing , Commemt1 Glu2: Cleaned Meter Normal [facility] Comment on above: Result Comment: PERF ORMED BY: [facility] [address] [facility] [place] [address] PATHOLOGIST ELECTRICAL AND INSTRUMENTATION MANAGER MIGUELITO JAIMES M.D. Performed By: #### G LULS #### Point of Care testing , Glucose [Mass/Vol] 141 mg/dL Normal [facility] Comment on above: Result Comment: [place] om Glucose Reference Range is dependent on time and content of last meal. Glucose of more than 200 mg/dL in a nonstressed, ambulatory subject supports the diagnosis of Diabetes Mellitus. Performed By: #### G SANCHO #### Point of Care testing , Pablo 06-27-2024 L - -------- Specimen: [id number] Received: 06/28/24 Status: KEVIN Carney Num: [id number] Spec Type: Surgical Subm Dr: Korey Valencia DO Tissues: A Debridement-Skin/Othe r Than Skin (NOSE) Procedures: JASON/Robert Escalante/Perfecto L3 -------- Age/ Patient Sex Location Account Attending Physician -------- Willie Espinosa 84/F [place] [id number] Korey Valencia DO -------- SPEC NUM: [id number] RECD: 06/28/24 STATUS: KEVIN CARNEY NUM: [id number] CARMEN: 06/27/24- SUBM DR: Korey Valencia DO ENTERED: 06/28/[address]: SPEC TYPE: Surgical DEPT: S ORDERED: HE/3, Gross/Micro [...] A1 Bisected tapered polar tip -------- Specimen: [id number] Received: 06/28/24 Status: KEVIN Carney Num: [id number] Spec Type: Surgical Subm Dr: Korey S Biedenbach,DO Tissues: A Debridement-Skin/Othe r Than Skin (NOSE) Procedures: Robert CORDOVA/Perfecto L3 -------- Patient: Willie Espinosa [id number] (Continued) -------- Specimen: [id number] Received: 06/28/24 (Continued) Gross Description (Continued) Signed (signature on file) Maciej Brown MD 07/01/24 1320 -------- Specimen: [id number] Received: 06/28/24 Status: KEVIN Carney Num: [id number] Spec Type: Surgical Subm Dr: Korey Valencia,DO Tissues: A Debridement-Skin/Othe r Than Skin (NOSE) Procedures: Robert CORDOVA/Micro L3 -------- Patient: Willie Espinosa [id number] (Continued) -------- Specimen: [id number] Received: 06/28/24 (Continued) Gross Description (Continued) A2 Trisected center of specimen A3 Serially sectioned, widened polar end (3, , [id number] A)JOSE Microscopic Description Microscopic examination is performed. CPT Codes 43408 -------- -------- Specimen: [id number] Received: 06/28/24 Status: KEVIN Carney Num: [id number] Spec Type: Surgical Subm Dr: Korey Valencia DO Tissues: A Debridement-Skin/Othe r Than Skin (NOSE) Procedures: HE/3, Gross/Micro L3 -------- Patient: Willie Espinosa [id number] (Continued) -------- Signed (signature on file) Maciej Brown MD 07/01/24 1320 Normal [facility] No Panel InformationOrdered By: Korey Valencia on 06-27-2024 Bedside Glucose Comment Glu2: cleaned meter [facility] Potassiumon 06-27-2024 Potassium [Moles/Vol] 5.2 mmol/L High 3.5-5.1 [facility] Comment on above: Result Comment: PERF ORMED BY: [facility] [address] [facility] [place] [address] PATHOLOGIST ELECTRICAL AND INSTRUMENTATION MANAGER MIGUELITO JAIMES M.D. Performed By: #### K #### [facility] [address] Potassium [Moles/volume] in Serum or PlasmaOrdered By: ALISA DAWN on 06-27-2024 Potassium [Moles/Vol] Potassium [Moles/volume] in Serum or Plasma High 3.5-5.1 [facility] Basic Metabolic Panelon Anion gap [Moles/Vol] 12.8 mmol/L Normal 6.0-15.0 [facility] Comment on above: Performed By: #### B MP, CBC #### [facility] [address] [place] [id number] [facility] Calcium [Mass/Vol] 9.5 mg/dL Normal 8.6-10.3 [facility] Comment on above: Result Comment: PERF ORMED BY: [place] [address] PATHOLOGIST ELECTRICAL AND INSTRUMENTATION MANAGER MIGUELITO JAIMES M.D. Performed By: #### B MP, CBC #### [place] [address] [place] Chloride [Moles/Vol] 110 mmol/L High 98-107 [facility] Comment on above: Performed By: #### B MP, CBC #### [place] [address] [place] CO2 [Moles/Vol] 25.9 mmol/L Normal 21.0-31.0 [facility] Comment on above: Performed By: #### B MP, CBC #### [address] Creatinine [Mass/Vol] 1.23 mg/dL High 0.60-1.20 [facility] Comment on above: Performed By: #### B MP, CBC #### [address] Estimated GFR 43.603 mL/Min Normal [facility] Comment on above: Performed By: #### B MP, CBC #### [address] Glucose [Mass/Vol] 123 mg/dL High 70-100 [facility] Comment on above: Result Comment: [place] Glucose Reference Range is dependent on time and content of last meal. Glucose of more than 200 mg/dL in a nonstressed, ambulatory subject supports the diagnosis of Diabetes Mellitus. ADA recommended reference range Performed By: #### B MP, CBC #### [place] [address] [place] Potassium [Moles/Vol] 5.7 mmol/L High 3.5-5.1 [facility] Comment on above: Performed By: #### B MP, CBC #### [place] [address] [place] Sodium [Moles/Vol] 143 mmol/L Normal 136-145 [facility] Comment on above: Performed By: #### B MP, CBC #### [facility] [address] Urea nitrogen [Mass/Vol] 46 mg/dL High 7-25 [facility] Comment on above: Performed By: #### B MP, CBC #### [facility] [address] Basic metabolic 1998 panelon 06-24-2024 Anion gap [Moles/Vol] 12.8 mmol/L 6.0 - 15.0 meq/L [facility] Calcium [Mass/Vol] 9.5 mg/dL 8.6 - 10. 3 mg/dL [facility] Chloride [Moles/Vol] 110 mmol/L High 98 - 10 7 mmol/L [facility] CO2 [Moles/Vol] 25.9 mmol/L 21.0 - 31.0 mmol/L [facility] Creatinine (U) [Mass/Vol] 1.23 mg/dL High 0.60 - 1.20 mg/dL [facility] GFR/1.73 sq M.predicted MDRD (S/P/Bld) [Vol rate/Area] 43.603 mL/min/{1.73_m2} mL/Min [facility] Glucose [Mass/Vol] 123 mg/dL High 70 - 100 mg/dL [facility] Comment on above: Random Glucose Refer ence Range is dependent on time and content of last meal. Glucose of more than 200 mg/dL in a nonstressed, ambulatory subject supports the diagnosis of Diabetes Mellitus. ADA recommended reference range Interpretation and review of laboratory results Abnormal [facility] Potassium [Moles/Vol] 5.7 mmol/L High 3.5 - 5.1 mmol/L [facility] Sodium [Moles/Vol] 143 mmol/L 136 - 145 mmol/L [facility] Urea nitrogen [Mass/Vol] 46 mg/dL High 7 - 25 mg/dL [facility], 1928–[facility] Basophils Auto (Bld) [#/Vol] Ordered By: Korey Valencia on 06-24-2024 Basophils (Bld) [#/Vol] Automated basoph il count 0.0-0.2 [facility] Basophils/100 WBC Auto (Bld) Ordered By: Korey Valencia on 06-24-2024 Basophils/100 WBC (Bld) Automated basophil % . [facility] CBC W Auto Differential pane l (Bld)on 06-24-2024 Basophils (Bld) [#/Vol] 0 10*3/uL 0.0 - 0.2 10*3/uL [facility] Basophils/100 WBC Manual cnt (Syn fld) 0.4 % . [facility] Eosinophils (Bld) [#/Vol] 0.2 10*3/uL 0.0 - 0.45 10*3/uL [facility] Eosinophils/100 WBC Manual cnt (Syn fld) 2.3 % . [facility] Erythrocyte distribution width (RBC) [Ratio] 13.3 % 11.9 - 15.3 % [facility] Hematocrit (Bld) [Volume fraction] 34.9 % 34.0 - 46.4 % [facility] Hemoglobin (Bld) [Mass/Vol] 11.9 g/dL 11.8 - 15.4 g/dL [facility] Lymphocytes (Bld) [#/Vol] 2.3 10*3/uL 1.00 - 4.8 10*3/uL [facility] Lymphocytes/100 WBC Manual cnt (Syn fld) 30.5 % . [facility] MCH (RBC) [Entitic mass] 31.1 pg 24.7 - 34.3 pg [facility] MCHC (RBC) [Mass/Vol] 34 g/dL 32.0 - 35.0 g/dL [facility] MCV (RBC) [Entitic vol] 91.4 fL 80 - 100 fL [facility] Monocytes (Bld) [#/Vol] 0.4 10*3/uL 0.0 - 0.8 10*3/uL [facility] Monocytes+Macrophages/1 00 WBC Manual cnt (Syn fld) 5.6 % . [facility] Neutrophils (Bld) [#/Vol] 4.5 10*3/uL 1.8 - 7.7 10*3/uL [facility] Neutrophils/100 WBC Manual cnt (Syn fld) 61.2 % . [facility] NRBC 0.1 /100{WBC} 0 - 0.5 /100{WBC} [facility] Platelet mean volume (Bld) [Entitic vol] 8.8 fL 6.3 - 10.7 fL [facility] Platelets (Bld) [#/Vol] 178 10*3/uL 150 - 450 10*3/uL [facility] RBC LM.HPF (Urine sed) [#/Area] 3.82 10*6/uL 3.60 - 5.00 10*6/uL [facility] WBC (Bld) [#/Vol] 7.4 10*3/uL 3.8 - 11.6 10*3/uL [facility] WBC LM.HPF (Urine sed) [#/Area] 7.4 10*3/uL 3.8 - 11.6 10*3/uL [facility] Calcium [Mass/volume] in Ser um or PlasmaOrdered By: Korey Valencia on 06-24-2024 Calcium [Mass/Vol] Calcium [Mass/volume ] in Serum or Plasma 8.6-10.3 [facility] Carbon dioxide, total [Moles /volume] in Serum or PlasmaOrdered By: Korey Valencia on 06-24-2024 CO2 [Moles/Vol] Carbon dioxide, tota l [Moles/volume] in Serum or Plasma 21.0-31.0 [facility] Chloride [Moles/volume] in S oswaldo or PlasmaOrdered By: Korey Valencia on 06-24-2024 Chloride [Moles/Vol] Chloride [Moles/volume] in Serum or Plasma High 98-107 [facility] Complete Blood Count Auto Di ffon 06-24-2024 Basophils (Bld) [#/Vol] 0.0 10*3/uL Normal 0.0-0.2 [facility] Comment on above: Result Comment: PERF ORMED BY: [place] [address] PATHOLOGIST ELECTRICAL AND INSTRUMENTATION MANAGER MIGUELITO JAIMES M.D. Performed By: #### B MP, CBC #### [facility] [address] [place] [address] Basophils/100 WBC (Bld) 0.4 % Normal . [facility] Comment on above: Performed By: #### B MP, CBC #### [facility] [address] [place] [address] [place] Eosinophils (Bld) [#/Vol] 0.2 10*3/uL Normal 0.0-0.45 [facility] Comment on above: Performed By: #### B MP, CBC #### [address] Eosinophils/100 WBC (Bld) 2.3 % Normal . [facility] Comment on above: Performed By: #### B MP, CBC #### [address] Erythrocyte distribution width (RBC) [Ratio] 13.3 % Normal 11.9-15.3 [facility] Comment on above: Performed By: #### B MP, CBC #### [address] Hematocrit (Bld) [Volume fraction] 34.9 % Normal 34.0-46.4 [facility] Comment on above: Performed By: #### B MP, CBC #### [address] Hemoglobin (Bld) [Mass/Vol] 11.9 g/dL Normal 11.8-15.4 [facility] Comment on above: Performed By: #### B MP, CBC #### [address] Lymphocytes (Bld) [#/Vol] 2.3 10*3/uL Normal 1.00-4.8 [facility] Comment on above: Performed By: #### B MP, CBC #### [address] Lymphocytes/100 WBC (Bld) 30.5 % Normal . [facility] Comment on above: Performed By: #### B MP, CBC #### [address] MCH (RBC) [Entitic mass] 31.1 pg Normal 24.7-34.3 [facility] Comment on above: Performed By: #### B MP, CBC #### [address] MCV (RBC) [Entitic vol] 91.4 fL Normal 80-100 [facility] Comment on above: Performed By: #### B MP, CBC #### [address] Mean Corpuscular HGB Conc 34.0 g/dL Normal 32.0-35.0 [facility] Comment on above: Performed By: #### B MP, CBC #### [address] Monocytes (Bld) [#/Vol] 0.4 10*3/uL Normal 0.0-0.8 [facility] Comment on above: Performed By: #### B MP, CBC #### [address] Monocytes/100 WBC (Bld) 5.6 % Normal . [facility] Comment on above: Performed By: #### B MP, CBC #### [address] Neutrophils (Bld) [#/Vol] 4.5 10*3/uL Normal 1.8-7.7 [facility] Comment on above: Performed By: #### B MP, CBC #### [address] Neutrophils/100 WBC (Bld) 61.2 % Normal . [facility] Comment on above: Performed By: #### B MP, CBC #### [address] NRBC% 0.1 /100{WBC} Normal 0-0.5 [facility] Comment on above: Performed By: #### B MP, CBC #### [address] Platelet mean volume (Bld) [Entitic vol] 8.8 fL Normal 6.3-10.[address] [facility] Comment on above: Performed By: #### B MP, CBC #### [address] Platelets (Bld) [#/Vol] 178 10*3/uL Normal 150-450 [facility] Comment on above: Performed By: #### B MP, CBC #### [facility] [address] RBC (Bld) [#/Vol] 3.82 10*6/uL Normal 3.60-5.00 [facility] Comment on above: Performed By: #### B MP, CBC #### [facility] [address] [place] [id number] [place] WBC (Bld) [#/Vol] 7.4 10*3/uL Normal 3.8-11.6 [facility] Comment on above: Performed By: #### B MP, CBC #### [address] Creatinine [Mass/volume] in Serum or PlasmaOrdered By: Korey Valencia on 06-24-2024 Creatinine [Mass/Vol] Creatinine [Mass/volume] in Serum or Plasma High 0.60-1.20 [facility] ECG 12 lead ECGon 06-24-2024 ECG 12 lead ECG [facility] [place] [address] [place] [address] Electrocardiograph Report Signed Patient: Willie Espinosa MR#: [id number] 6 : 1940 Acct:[id number] Age/Sex: 84 / F ADM Date: 06/24/24 Loc: Room: Type: [facility] Attending Dr: Korey Valencia DO Ordering [...] Otherwise normal ECG Confirmed by Jaylene Betancourt ([id number]) on 06/24/2024 6:34:53 PM Referred By: Electronically Signed By: Jaylene Betancourt Transcribed By: MUS Signed By Jaylene Betancourt MD 5 1834 Normal [facility] Eosinophils Auto (Bld) [#/Vo l]Ordered By: Korey Valencia on 06-24-2024 Eosinophils (Bld) [#/Vol] Automated eosinophil count 0.0-0.45 [facility] Eosinophils/100 WBC Auto (Bl d)Ordered By: Korey Valencia on 06-24-2024 Eosinophils/100 WBC (Bld) Automated eosinophil % . [facility] Erythrocyte distribution wid th Auto (RBC) [Ratio]Ordered By: Korey Valencia on 06-24-2024 Erythrocyte distribution width (RBC) [Ratio] Erythrocyte distribution width [Ratio] by Automated count 11.9-15.3 [facility] Glucose [Mass/volume] in Ser um or PlasmaOrdered By: Korey Valencia on 06-24-2024 Glucose [Mass/Vol] Glucose [Mass/volume ] in Serum or Plasma High 70-100 [facility] Comment on above: ADA recommended refe rence rangeRandom Glucose Reference Range is dependent on time and content of last meal. Glucose of more than 200 mg/dL in a nonstressed, ambulatory subject supports the diagnosis of Diabetes Mellitus. Hematocrit Auto (Bld) [Volum e fraction]Ordered By: Korey Valencia on 06-24-2024 Hematocrit (Bld) [Volume fraction] Hematocrit [Volume Fraction] of Blood by Automated count 34.0-46.4 [facility] Hemoglobin [Mass/volume] in BloodOrdered By: Korey Valencia on 06-24-2024 Hemoglobin (Bld) [Mass/Vol] Hemoglobin [Mass/volume] in Blood 11.8-15.4 [facility] Leukocytes [#/volume] correc osmany for nucleated erythrocytes in Blood by Automated counOrdered By: Korey Valencia on 06-24-2024 WBC corrected for nucl RBC Auto (Bld) [#/Vol] Leukocytes [#/volume] corrected for nucleated erythrocytes in Blood by Automated coun 3.8-11.6 [facility] Lymphocytes Auto (Bld) [#/Vo l]Ordered By: Korey Valencia on 06-24-2024 Lymphocytes (Bld) [#/Vol] Lymphocytes [#/volume] in Blood by Automated count 1.00-4.8 [facility] Lymphocytes/100 WBC Auto (Bl d)Ordered By: Korey Valencia on 06-24-2024 Lymphocytes/100 WBC (Bld) Lymphocytes/100 leukocytes in Blood by Automated count . [facility] MCH Auto (RBC) [Entitic mass ]Ordered By: Korey Valencia on 06-24-2024 MCH (RBC) [Entitic mass] MCH [Entitic mass] by Automated count 24.7-34.3 [facility] MCHC Auto (RBC) [Mass/Vol]Or dered By: Korey Valencia on 06-24-2024 MCHC (RBC) [Mass/Vol] MCHC [Mass/volume] by Automated count 32.0-35.0 [facility] MCV Auto (RBC) [Entitic vol] Ordered By: Korey Valencia on 06-24-2024 MCV (RBC) [Entitic vol] MCV [Entitic vol ume] by Automated count 80-100 [facility] Monocytes Auto (Bld) [#/Vol] Ordered By: Korey Valencia on 06-24-2024 Monocytes (Bld) [#/Vol] Automated blood monocyte count 0.0-0.8 [facility] Monocytes/100 WBC Auto (Bld) Ordered By: Korey Valencia on 06-24-2024 Monocytes/100 WBC (Bld) Automated monocyte % . [facility] Neutrophils Auto (Bld) [#/Vo l]Ordered By: Korey Valencia on 06-24-2024 Neutrophils (Bld) [#/Vol] Neutrophils [#/volume] in Blood by Automated count 1.8-7.7 [facility] Neutrophils/100 WBC Auto (Bl d)Ordered By: Korey Valencia on 06-24-2024 Neutrophils/100 WBC (Bld) Automated neutrophil % . [facility] No Panel InformationOrdered By: Korey Valencia on 06-24-2024 Estimated GFR (CKD-EPI) 43.603 mL/Min [facility] Creatinine Clearance (Chem N/A [facility] Nucleated erythrocytes [Pres ence] in Blood by Automated countOrdered By: Korey Valencia on 06-24-2024 Nucleated RBC Auto Ql (Bld) Nucleated erythrocytes [Presence] in Blood by Automated count 0-0.5 [facility] Platelet mean volume Auto (B ld) [Entitic vol]Ordered By: Korey Valencia on 06-24-2024 Platelet mean volume (Bld) [Entitic vol] Platelet mean volume [Entitic volume] in Blood by Automated count 6.3-10.7 [facility] Platelets Auto (Bld) [#/Vol] Ordered By: Korey Valencia on 06-24-2024 Platelets (Bld) [#/Vol] Platelets [#/vol ume] in Blood by Automated count 150-450 [facility] Potassium [Moles/volume] in Serum or PlasmaOrdered By: Korey Valencia on 06-24-2024 Potassium [Moles/Vol] Potassium [Moles/volume] in Serum or Plasma High 3.5-5.1 [facility] RBC Auto (Bld) [#/Vol]Ordere d By: Korey Valencia on 06-24-2024 RBC (Bld) [#/Vol] Erythrocytes [#/volume] in Blood by Automated count 3.60-5.00 [facility] Serum or plasma anion gap de terminationOrdered By: Korey Valencia on 06-24-2024 Anion gap [Moles/Vol] Serum or plasma an ion gap determination 6.0-15.0 [facility] Sodium [Moles/volume] in Ser um or PlasmaOrdered By: Korey Valencia on 06-24-2024 Sodium [Moles/Vol] Sodium [Moles/volume ] in Serum or Plasma 136-145 [facility] Urea nitrogen [Mass/volume] in Serum or PlasmaOrdered By: Korey Valencia on 06-24-2024 Urea nitrogen [Mass/Vol] Urea nitrogen [Mass/volume] in Serum or Plasma High 7-25 [facility] WBC Auto (Bld) [#/Vol]Ordere d By: Korey Valencia on 06-24-2024 WBC (Bld) [#/Vol] Leukocytes [#/volume ] in Blood by Automated count 3.8-11.6 [facility] No Panel Informationon 06-20 Consent obtained: written (The rationale for Mohs as well as the risks, benefits, and alternatives. The risks of infection, scarring, bleeding, prolonged wound healing, incomplete removal, allergy to anesthesia or meds, nerve injury, and recurrence were addressed.) [place] Protocol: Procedure explained and questions answered to [...] sodium bicarbonate Procedure Details: Biopsy accession number: [id number] Biopsy lab: [facility] Date of biopsy: 02/29/2024 Frozen section biopsy [...] defect reconstructed? Yes (more content not included)... [facility] - Hematology and Cell countson 05-16-2024 HbA1c (Bld) [Mass fraction] 7.7 % [facility] Panel Informationon 05-16 Interpretation and review of laboratory results Abnormal [facility], [facility] No Panel Informationon 02-28 [facility] Type of biopsy: tangential Informed consent: discussed [...] taken Amount of lidocaine used: 0.5 cc [facility] Laboratory - Hematology and Cell countson 02-06-2024 HbA1c (Bld) [Mass fraction] 7.6 % [facility] Panel Informationon 02-05 Interpretation and review of laboratory results Abnormal [facility]ly [facility], 1928–1983 XR Abdomen 2 Viewson 023 XR Abdomen [...] by Hilton Talbot on 08/22/2022 1642 [facility] NM STRESS/REST MULTIon 03-02 NM STRESS/REST MULTI Patient: SHON ESPINOSA Exam Date: 03/02/2022 : 1940 Gender:F Ordering : DR BAUTISTA THAYER M.D. Admission #: [id number] Family : Order #: [id number] CLICK HERE TO VIEW EXAM RADIOLOGY REPORT [...] Trujillo MD on 03/02/2022 at 13:16 Normal [facility] Vital Signs Date Time Vital Sign Value Performing Clinician Alejandroi nellie 01-02-2025 13:42-0400 Body height 144.8 cm Nagi James MD Work Phone: [facility] 01-02-2025 13:42-0400 Body mass index (BMI) [Ratio] 38.52 kg/m2 Nagi James MD Work Phone: [facility] 01-02-2025 13:42-0400 Body weight 80.74 kg Nagi James MD Work Phone: [facility] 01-02-2025 13:42-0400 Diastolic blood pressure 54 mm[Hg] Nagi James MD Work Phone: [facility] 01-02-2025 13:42-0400 Heart rate 70 /min Nagi James MD Work Phone: [facility] 01-02-2025 13:42-0400 Systolic blood pressure 126 mm[Hg] Nagi James MD Work Phone: [facility] 12-19-2024 13:33-0400 Body height 144.8 cm Nagi James MD Work Phone: [facility] 12-19-2024 13:33-0400 Body mass index (BMI) [Ratio] 40.73 kg/m2 Nagi James MD Work Phone: [facility] 12-19-2024 13:33-0400 Body weight 85.37 kg Nagi James MD Work Phone: [facility] 12-19-2024 13:33-0400 Diastolic blood pressure 84 mm[Hg] Nagi James MD Work Phone: [facility] 12-19-2024 13:33-0400 Heart rate 78 /min Nagi James MD Work Phone: [facility] 12-19-2024 13:33-0400 Systolic blood pressure 138 mm[Hg] Nagi James MD Work Phone: [facility] 11-21-2024 11:02-0400 Diastolic blood pressure 60 mm[Hg] Nagi James MD Work Phone: [facility] 11-21-2024 11:02-0400 Systolic blood pressure 120 mm[Hg] Nagi James MD Work Phone: [facility] 11-21-2024 10:51-0400 Body height 144.8 cm Nagi James MD Work Phone: [facility] 11-21-2024 10:51-0400 Body mass index (BMI) [Ratio] 39.38 kg/m2 Nagi James MD Work Phone: [facility] 11-21-2024 10:51-0400 Body weight 82.56 kg Nagi James MD Work Phone: [facility] 11-21-2024 10:51-0400 Heart rate 70 /min Nagi James MD Work Phone: [facility] 11-11-2024 11:19-0400 Body height 149.9 cm Bautista Thayer MD Work Phone: [facility] 11-11-2024 11:19-0400 Body mass index (BMI) [Ratio] 35.95 kg/m2 Bautista Thayer MD Work Phone: [facility] 11-11-2024 11:19-0400 Body weight 80.74 kg Bautista Thayer MD Work Phone: [facility] 11-11-2024 11:19-0400 Diastolic blood pressure 78 mm[Hg] Bautista Thayer MD Work Phone: [facility] 11-11-2024 11:19-0400 Heart rate 66 /min Bautista Thayer MD Work Phone: [facility] 11-11-2024 11:19-0400 SaO2% (BldA) [Mass fraction] 95 % Bautista Thayer MD Work Phone: [facility] 11-11-2024 11:19-0400 Systolic blood pressure 138 mm[Hg] Bautista Thayer MD Work Phone: [facility] 08-12-2024 10:45-0400 Body height 149.9 cm Bautista Thayer MD Work Phone: [facility] 08-12-2024 10:45-0400 Body mass index (BMI) [Ratio] 36.96 kg/m2 Bautista Thayer MD Work Phone: [facility] 08-12-2024 10:45-0400 Body weight 83.01 kg Bautista Thayer MD Work Phone: [facility] 08-12-2024 10:45-0400 Diastolic blood pressure 68 mm[Hg] Bautista Thayer MD Work Phone: [facility] 08-12-2024 10:45-0400 Heart rate 63 /min Bautista Thayer MD Work Phone: [facility] 08-12-2024 10:45-0400 SaO2% (BldA) [Mass fraction] 98 % Bautista Thayer MD Work Phone: [facility] 08-12-2024 10:45-0400 Systolic blood pressure 130 mm[Hg] Bautista Thayer MD Work Phone: [facility] 08-02-2024 14:53-0400 Body height 149.9 cm Korey Valencia DO Work Phone: [facility] 08-02-2024 14:53-0400 Body mass index (BMI) [Ratio] 35.35 kg/m2 Korey Harlanedentino DO Work Phone: [facility] 08-02-2024 14:53-0400 Body weight 79.38 kg Korey Dowlingentino DO Work Phone: [facility] 07-03-2024 14:20-0400 Body height 149.9 cm Eriberto Hdez DO Work Phone: [facility] 07-03-2024 14:20-0400 Body mass index (BMI) [Ratio] 35.55 kg/m2 Eriberto Hdez DO Work Phone: [facility] 07-03-2024 14:20-0400 Body weight 79.83 kg Eriberto Hdez DO Work Phone: [facility] 06-27-2024 19:11-0500 Diastolic blood pressure 57 mm[Hg] Bautista Thayer MD Work Phone: [facility] 06-27-2024 19:11-0500 Heart rate 65 /min Bautista Thayer MD Work Phone: [facility] 06-27-2024 19:11-0500 Respiratory rate 16 /min Bautista Thayer MD Work Phone: [facility] 06-27-2024 19:11-0500 SaO2% (BldA) [Mass fraction] 97 % Bautista Thayer MD Work Phone: [facility] 06-27-2024 19:11-0500 Systolic blood pressure 125 mm[Hg] Bautista Thayer MD Work Phone: [facility] 06-27-2024 18:11-0500 Body temperature 97.4 [degF] Bautista Thayer MD Work Phone: [facility] 06-27-2024 15:00-0500 Body height 147.32 cm Bautista Thayer MD Work Phone: [facility] 06-27-2024 15:00-0500 Body weight 82 kg Bautista Thayer MD Work Phone: [facility] 06-21-2024 10:14-0500 Body height 149.9 cm Korey Valencia DO Work Phone: [facility] 06-21-2024 10:14-0500 Body mass index (BMI) [Ratio] 35.75 kg/m2 Korey Valencia DO Work Phone: [facility] 06-21-2024 10:14-0500 Body weight 80.29 kg Korey Valencia DO Work Phone: [facility] 06-20-2024 15:11-0500 Diastolic blood pressure 82 mm[Hg] Vernell Llamas MD Work Phone: [facility] 06-20-2024 15:11-0500 Systolic blood pressure 142 mm[Hg] Vernell Llamas MD Work Phone: [facility] 05-16-2024 13:50-0500 Body height 149.9 cm Bautista Thayer MD Work Phone: [facility] 05-16-2024 13:50-0500 Body mass index (BMI) [Ratio] 35.75 kg/m2 Bautista Thayer MD Work Phone: [facility] 05-16-2024 13:50-0500 Body weight 80.29 kg Bautista Thayer MD Work Phone: [facility] 05-16-2024 13:50-0500 Diastolic blood pressure 78 mm[Hg] Bautista Thayer MD Work Phone: [facility] 05-16-2024 13:50-0500 Heart rate 72 /min Bautista Thayer MD Work Phone: [facility] 05-16-2024 13:50-0500 SaO2% (BldA) [Mass fraction] 97 % Bautista Thayer MD Work Phone: [facility] 05-16-2024 13:50-0500 Systolic blood pressure 128 mm[Hg] Bautista Thayer MD Work Phone: [facility] 04-09-2024 16:00-0500 Body height 149.9 cm Bautista Thayer MD Work Phone: [facility] 04-09-2024 16:00-0500 Body mass index (BMI) [Ratio] 35.75 kg/m2 Bautista Thayer MD Work Phone: [facility] 04-09-2024 16:00-0500 Body weight 80.29 kg Bautista Thayer MD Work Phone: [facility] 04-09-2024 16:00-0500 Diastolic blood pressure 68 mm[Hg] Bautista Thayer MD Work Phone: [facility] 04-09-2024 16:00-0500 Heart rate 78 /min Bautista Thayer MD Work Phone: [facility] 04-09-2024 16:00-0500 SaO2% (BldA) [Mass fraction] 96 % Bautista Thayer MD Work Phone: [facility] 04-09-2024 16:00-0500 Systolic blood pressure 124 mm[Hg] Bautista Thayer MD Work Phone: [facility] 02-06-2024 10:56-0400 Body height 149.9 cm Bautista Thayer MD Work Phone: [facility] 02-06-2024 10:56-0400 Body mass index (BMI) [Ratio] 34.74 kg/m2 Bautista Thayer MD Work Phone: [facility] 02-06-2024 10:56-0400 Body weight 78.02 kg Bautista Thayer MD Work Phone: [facility] 02-06-2024 10:56-0400 Diastolic blood pressure 64 mm[Hg] Bautista Thayer MD Work Phone: [facility] 02-06-2024 10:56-0400 Heart rate 65 /min Bautista Thayer MD Work Phone: [facility] 02-06-2024 10:56-0400 SaO2% (BldA) [Mass fraction] 96 % Bautista Thayer MD Work Phone: [facility] 02-06-2024 10:56-0400 Systolic blood pressure 112 mm[Hg] Bautista Thayer MD Work Phone: [facility] 06-08-2023 11:20-0500 Body mass index (BMI) [Ratio] 36.07 kg/m2 Delores Carrero PA Work Phone: [facility] 06-08-2023 11:20-0500 Body weight 78.29 kg Delores Hemmer PA Work Phone: [facility] 06-08-2023 11:20-0500 Diastolic blood pressure 72 mm[Hg] Delores Hemmer PA Work Phone: [facility] 06-08-2023 11:20-0500 Heart rate 64 /min Delores Hemmer PA Work Phone: [facility] 06-08-2023 11:20-0500 Respiratory rate 18 /min Delores Hemmer PA Work Phone: [facility] 06-08-2023 11:20-0500 SaO2% (BldA) [Mass fraction] 97 % Delores ALMANZA Work Phone: [facility] 06-08-2023 11:20-0500 Systolic blood pressure 132 mm[Hg] Delores ALMANZA Work Phone: [facility] Healthcare Encounters Encounter Date Encounter Type Care Provider Facility Start: 01-10-2025 End: 01-10-2025 Patient encounter procedure Nagi James -Electrodiagnostics Work Phone: Start: 01-10-2025 End: 01-10-2025 ambulatory Bautista Thayer MD Work Phone: [facility] Work Phone: Start: 01-02-2025 End: 01-02-2025 Office outpatient visit 40 minutes Nagi James MD Work Phone: [facility] Comment on above: Holter monitor, abno rmal (Primary Dx); Essential (primary) hypertension; Murmur, cardiac; LVH (left ventricular hypertrophy); Diastolic dysfunction; Chronic fatigue; Dizziness and giddiness; Near syncope; Acute diastolic heart failure; Mixed hyperlipidemia; Hypothyroidism, unspecified type; Localized edema; Encounter to discuss test results; Type 2 diabetes mellitus with stage 3 chronic kidney disease, with long-term current use of insulin, unspecified whether stage 3a or 3b CKD (Multi); Never smoked tobacco; Morbid obesity with body mass index (BMI) of 40.0 or higher (Multi); Second degree heart block; SSS (sick sinus syndrome) (Multi); NSVT (nonsustained ventricular tachycardia) (Multi) Start: 01-02-2025 End: 01-02-2025 ambulatory [facility] Amb[facility] Start: 12-30-2024 End: 12-30-2024 Clinisync Result Encounter Generic External Data Provider [facility] External Department Unsolicited Start: 12-30-2024 End: 12-30-2024 Clinisync Result Encounter Generic External Data Provider [facility] External Department Unsolicited Start: 12-19-2024 End: 12-19-2024 Office outpatient visit 25 minutes Nagi James MD Work Phone: [facility] Comment on above: Other chest pain; [...] test results Start: 12-19-2024 End: 12-19-2024 ambulatory [facility] Amb[facility] Start: 12-05-2024 End: 12-05-2024 Office outpatient visit 10 minutes Mukesh Fernandez MD [facility] Comment on above: Seborrheic keratosis (Primary Dx); History of basal cell carcinoma; Seborrheic keratosis, inflamed; Actinic keratosis; Milia Start: 12-05-2024 End: 12-05-2024 ambulatory MUKESH FERNANDEZ Not Available Start: 12-05-2024 End: 12-05-2024 Sarah Fernandez MD Work [facility] Start: 12-05-2024 End: 12-05-2024 Sarah Fernandez MD Work [facility] Start: 11-26-2024 End: 11-26-2024 Clinisync Result Encounter Generic External Data Provider [facility] External Department Unsolicited Start: 11-26-2024 End: 11-26-2024 Clinisync Result Encounter Generic External Data Provider [facility] External Department Unsolicited Start: 11-25-2024 End: 11-25-2024 ambulatory [facility] Amb[facility] Start: 11-21-2024 End: 11-21-2024 ambulatory [facility] Start: 11-21-2024 End: 11-21-2024 Office outpatient new 60 minutes Nagi James MD Work Phone: [facility] Comment on above: Encounter to [facility]; Other chest pain; Near syncope; Dizziness and [...] asthma, unspecified asthma severity, unspecified whether persistent (HHS-HCC); Never smoked tobacco; Obesity (BMI 30-39.9); History of fall Start: 11-11-2024 End: 11-11-2024 ambulatory RUGEN M JEOVANY Not Available Start: 11-11-2024 End: 11-11-2024 [...] status (CMS/HCC) Start: 08-12-2024 End: 08-12-2024 ambulatory RUGEN M JEOVANY Not Available Start: 08-12-2024 End: 08-12-2024 [...] with hypoglycemia without coma (CMS/HCC); Acquired hypothyroidism ([facility]/HCC) Start: 08-02-2024 End: 08-02-2024 ambulatory KOREY VALENCIA Not Available Start: 08-02-2024 End: 08-02-2024 Postop follow up visit related to original px Korey Valencia DO Work Phone: [facility] Comment on above: Mohs defect of nose (Primary Dx); Basal cell carcinoma (BCC) of skin of nose Start: 08-02-2024 End: 08-02-2024 Bamboo flowsheet Korey Valencia DO Work Phone: [facility] Start: 08-02-2024 End: 08-02-2024 Bamboo flowsheet Korey Valencia DO Work Phone: [facility] Start: 07-03-2024 End: 07-03-2024 ambulatory ERIBERTO HDEZ Not Available Start: 07-03-2024 End: 07-03-2024 Postop follow up visit related to original px Eriberto Hdez DO Work Phone: [facility] Comment on above: Mohs defect of nose (Primary Dx) Start: 06-27-2024 End: 06-27-2024 Admission to same day surgery center Bautista Thayer MD Work Phone: [facility] Start: 06-27-2024 End: 06-27-2024 ambulatory Bautista Thayer MD Work Phone: [facility] Work Phone: Start: 06-24-2024 End: 06-24-2024 External Result Encounter Korey Lee Madonna DO Work Phone: [facility] External [facility] Unsolicited Start: 06-24-2024 End: 06-24-2024 External Result Encounter Korey Lee Madonna DO Work Phone: [facility] External Department Unsolicited Start: 06-24-2024 End: 06-24-2024 Patient encounter procedure Bautista Thayer MD Work Phone: [facility] Work Phone: Start: 06-24-2024 End: 06-24-2024 ambulatory Bautista Thayer MD Work Phone: [facility] Work Phone: Start: 06-24-2024 Encounter for preprocedural laboratory examination Korey Valencia [facility] Start: 06-21-2024 End: 06-21-2024 Office outpatient new 45 minutes Korey Sofy Madonna DO Work Phone: [facility] [place] Comment [...] hemosiderin, quant Bautista Thayer MD Work Phone: [facility] Healthcare Start: 05-16-2024 End: 05-16-2024 Patient encounter procedure Bautista Thayer MD Work Phone: [facility] Comment on above: Routine general medi abad examination [facility] (Primary Dx); Uncontrolled type 2 diabetes [...] 04-05-2024 Refill Bautista Thayer MD Work Phone: [facility] Comment on above: Uncontrolled type 2 diabetes mellitus with hypoglycemia, unspecified hypoglycemia coma status (CMS/HCC) Start: 02-29-2024 End: 02-29-2024 Bamboo flowsscott Fernandez MD Work Phone: [facility] Start: 02-29-2024 End: 02-29-2024 Bamrohano flowsscott Fernandez MD Work Phone: [facility] Start: 02-29-2024 End: 02-29-2024 Office outpatient visit 25 minutes Mukesh Fernandez MD Work Phone: [facility] Comment on above: Psoriasis vulgaris ( CMS/HCC) (Primary Dx); Seborrheic keratosis; Actinic keratosis; Seborrheic [...] MD Work Phone: [facility] Start: 06-08-2023 BamThe ADEXo flowsheet Delores ALMANZA Work Phone: [facility] Start: 06-08-2023 Bamboo flowsheet Delores ALMANZA Work Phone: [facility] Start: 06-08-2023 [...] both ears Start: 06-07-2023 Chart abstracting Delores Dejesus er PA Work Phone: [facility] Start: 03-02-2022 End: 03-03-[address] BAUTISTA THAYER Facility:[facility] Procedures Date Procedure Procedure Detail Performing Clinician Start: 01-02-2025 Ecg routine ecg w/le ast 12 lds w/i&r Nagi James MD Work Phone: Start: 12-30-2024 ALL CBC WITH AUTO DIFF Generic External Data Provider Start: 12-05-2024 End: 12-05-2024 CRYOTHERAPY SKIN LESION Mukesh Fernadnez MD Work Phone: Start: 11-26-2024 ALL CBC WITH AUTO DIFF Generic External Data Provider Start: 11-21-2024 Ecg routine ecg w/le ast 12 lds w/i&r Nagi James MD Work Phone: Start: 11-11-2024 Hemoglobin glycosyla osmany a1c Bautista Thayer MD Work Phone: Start: 08-12-2024 Hemoglobin glycosyla osmany a1c Bautista Thayer MD Work Phone: Start: 06-27-2024 OR Nasal Excision CA W/Skin Graft Recon (Not Applicable) Bautista Thayer MD Work Phone: Start: 06-24-2024 Basic metabolic pane l calcium total Kroey Valencia DO Work Phone: Start: 06-24-2024 Complete blood [...] screening for protein Diabetes: Urine Protein Screening [facility] Start: 06-05-2025 End: 06-05-2025 Patient encounter procedure 06/05/2025 1:50 PM EST [facility] [address] [place] [address] Mukesh Fernandez MD [address] [place] [address] [facility] Start: 02-13-2025 End: 02-13-2025 Patient encounter procedure 02/13/2025 10:45 AM EDT Office Visit [facility] [address] [facility] [address] [place] [address] Nagi James MD [address] [facility] [address] [place] [address] [facility] Start: 02-11-2025 Hemoglobin A1c measurement Diabetes: Hemoglobin A1C [facility] Start: 02-10-2025 End: 02-10-2025 Patient encounter procedure 02/10/2025 10:30 AM EDT Office Visit [facility] [address] [facility] [address] [place] [id number] Bautista Thayer MD [address] [facility] [address] [place] [address] [facility] Start: 01-17-2025 Glaucoma screening Diabetes: Retinopathy Screening [facility] Start: 01-02-2025 End: 01-02-2026 CBC panel - Blood by Automated count CBC Lab Routine Chronic fatigue Acute diastolic heart failure Localized edema Expected: 01/02/2025, Expires: 01/02/2026 [facility] Work Phone: Comment on above: Expected: 01/02/2025, Expires: Start: 01-02-2025 End: 01-02-2026 Comprehensive metabolic 2000 panel - Serum or Plasma Comprehensive Metabolic Panel Lab Routine Chronic fatigue Acute diastolic heart failure Localized edema Expected: 01/02/2025, Expires: 01/02/2026 [facility] Work Phone: Comment on above: Expected: 01/02/2025, Expires: Start: 01-02-2025 End: 01-02-2027 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[employer] [facility] Routine Diastolic dysfunction Dizziness and giddiness Near syncope Acute diastolic heart failure Expected: 01/02/2025 (Approximate), Expires: 01/02/2027 [facility] Service Area Work Phone: Comment on above: Expected: 01/02/2025 (Approximate), Expi res: 01/02/2027 Start: 01-02-2025 End: 01-02-2026 Magnesium [Mass/volume] in Serum or Plasma Magnesium Lab Routine Chronic fatigue Acute diastolic heart failure Localized edema Expected: 01/02/2025, Expires: 01/02/2026 [facility] Work Phone: Comment on above: Expected: 01/02/2025, Expires: Start: 01-02-2025 End: 01-02-2026 Thyrotropin [Units/volume] in Serum or Plasma Thyroid Stimulating Hormone Lab Routine Hypothyroidism, unspecified type Expected: 01/02/2025 (Approximate), Expires: 01/02/2026 [facility] Work Phone: Comment on above: Expected: 01/02/2025 (Approximate), Expi res: 01/02/2026 Start: 01-02-2025 End: 01-02-2025 Patient encounter procedure 01/02/2025 1:15 PM EDT Office Visit [facility] [address] [facility] [address] [place] [address] Nagi James MD [address] [facility] [address] [place], [place] [id number] [facility] Start: 12-23-2024 COVID-19 Vaccine ( season) COVID-19 Vaccine () [facility] Start: 12-23-2024 Influenza vaccination Influenza Vaccine (#1) [facility] Start: 12-19-2024 End: 12-19-2025 CBC panel - Blood by Automated count CBC Lab Routine Diastolic dysfunction Acute diastolic heart failure Expected: 12/19/2024, Expires: 12/19/2025 [facility] Work Phone: Comment on above: Expected: 12/19/2024, Expires: Start: 12-19-2024 End: 12-19-2025 Comprehensive metabolic 2000 panel - Serum or Plasma Comprehensive Metabolic Panel Lab Routine Diastolic dysfunction Acute diastolic heart failure Expected: 12/19/2024, Expires: 12/19/2025 [facility] Service Area Work Phone: Comment on above: Expected: 12/19/2024, Expires: Start: 12-19-2024 End: 12-19-2025 Magnesium [Mass/volume] in Serum or Plasma Magnesium Lab Routine Diastolic dysfunction Acute diastolic heart failure Expected: 12/19/2024, Expires: 12/19/2025 [facility] Work Phone: Comment on above: Expected: 12/19/2024, Expires: Start: 12-19-2024 End: 12-19-2024 Patient encounter procedure 12/19/2024 1:30 PM EDT Office Visit [facility] [address] [facility] [address] [place] [address] Nagi James MD [address] [facility] [address] [place], [place] [id number] [facility] Start: 12-05-2024 End: 12-05-2024 Patient encounter procedure [facility] Comment on above: Arrived Start: 11-28-2024 End: 11-28-2024 Patient encounter procedure 11/28/2024 1:20 PM EDT Office Visit [facility] [address] [place] [address] Mukesh Fernandez MD [address] [place] [address] [facility] Start: 11-25-2024 End: 11-25-2024 Professional / ancillary services management 11/25/2024 10:00 AM EDT Ancillary Procedure [facility] [address] [place] [address] [facility] Start: 11-21-2024 End: 11-21-2025 CBC panel - Blood by Automated count CBC Lab Routine Essential (primary) hypertension Type 2 diabetes mellitus with stage 3 chronic kidney disease, with long-term current use of insulin, unspecified whether stage 3a or 3b CKD (Multi) Expected: 11/21/2024, Expires: 11/21/2025 [facility] Work Phone: Comment on above: Expected: 11/21/2024, Expires: Start: 11-21-2024 End: 11-21-2025 Comprehensive metabolic 2000 panel - Serum or Plasma Comprehensive Metabolic Panel Lab Routine Essential (primary) hypertension Type 2 diabetes mellitus with stage 3 chronic kidney disease, with long-term current use of insulin, unspecified whether stage 3a or 3b CKD (Multi) Expected: 11/21/2024, Expires: 11/21/2025 [facility] Work Phone: Comment on above: Expected: 11/21/2024, Expires: Start: 11-21-2024 End: 11-21-2026 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[employer] [facility] Routine Near syncope Dizziness and giddiness Expected: 11/21/2024 (Approximate), Expires: 11/21/2026 [facility] Service Area Work Phone: Comment on above: Expected: 11/21/2024 (Approximate), Expi res: 11/21/2026 Start: 11-21-2024 End: 11-21-2025 Lipid 1996 panel - Serum or Plasma Lipid Panel Lab Routine Essential (primary) hypertension Type 2 diabetes mellitus with stage 3 chronic kidney disease, with long-term current use of insulin, unspecified whether stage 3a or 3b CKD (Multi) Expected: 11/21/2024, Expires: 11/21/2025 [facility] Work Phone: Comment on above: Expected: 11/21/2024, Expires: Start: 11-21-2024 End: 11-21-2025 Magnesium [Mass/volume] in Serum or Plasma Magnesium Lab Routine Dizziness and giddiness Essential (primary) hypertension Type 2 diabetes mellitus with stage 3 chronic kidney disease, with long-term current use of insulin, unspecified whether stage 3a or 3b CKD (Multi) Chronic fatigue Hypothyroidism, unspecified type Expected: 11/21/2024, Expires: 11/21/2025 [facility] Work Phone: Comment on above: Expected: 11/21/2024, Expires: Start: 11-21-2024 End: 11-21-2025 Thyrotropin [Units/volume] in Serum or Plasma Thyroid Stimulating Hormone Lab Routine Dizziness and giddiness Essential (primary) hypertension Type 2 diabetes mellitus with stage 3 chronic kidney disease, with long-term current use of insulin, unspecified whether stage 3a or 3b CKD (Multi) Chronic fatigue Hypothyroidism, unspecified type Expected: 11/21/2024, Expires: 11/21/2025 [facility] Work Phone: Comment on above: Expected: 11/21/2024, Expires: Start: 11-11-2024 Hemoglobin A1c measurement Diabetes: Hemoglobin A1C [facility] Start: 11-11-2024 End: 11-11-2024 Patient encounter procedure 11/11/2024 11:00 AM EDT Office Visit [facility] [address] [facility] [address] [place] [address] Bautista Thayer MD [address] [facility] [address] [place] [address] [facility] Start: 08-14-2024 Hemoglobin A1c measurement Diabetes: Hemoglobin A1C [facility] Start: 08-12-2024 End: 08-12-2025 Microalbumin/Creatinine panel in random Urine Microalbumin / creatinine urine ratio Lab Routine Uncontrolled type 2 diabetes mellitus with hypoglycemia, unspecified hypoglycemia coma status ([facility]/HCC) Expected: 08/12/2024 (Approximate), Expires: 08/12/2025 [facility] Work Phone: Comment on above: Expected: 08/12/2024 (Approximate), Expi res: 08/12/2025 Start: 08-12-2024 End: 08-12-2025 TSH W/REFLEX TO FT4 TSH W/REFLEX TO FT4 Lab Routine Acquired hypothyroidism ([facility]) Expected: 08/12/2024 (Approximate), Expires: 08/12/2025 [facility] Comment on above: Expected: 08/12/2024 (Approximate), Expi res: 08/12/2025 Start: 08-12-2024 End: 08-12-2024 Patient encounter procedure 08/12/2024 10:30 AM EDT Office Visit [facility] [address] [facility] [address] [place] [address] Bautista Thayer MD [address] [place] [facility] [address] [place] [address] [facility] Start: 08-08-2024 Urine screening for protein Diabetes: Urine Protein Screening [facility] Start: 08-07-2024 Medicare Annual Wellness (AWV) Medicare Annual Wellness (AWV) [facility] Start: 08-02-2024 End: 08-02-2024 Patient encounter procedure 08/02/2024 2:45 PM EDT Office Visit [facility] [place] [address] [place] [phone] Korey Valencia DO [address] [place] [address] [facility] [place] Start: 07-23-2024 Urine screening for protein Diabetes: Urine Protein Screening [facility] Start: 07-03-2024 End: 07-03-2024 Patient encounter procedure 07/03/2024 2:15 PM EDT Office Visit [facility] [place] [address] [place] [address] Eriberto Hdez, DO [address] [place] [address] [facility] [place] Start: 06-27-2024 [facility] Start: 06-27-2024 [facility] Start: 06-21-2024 End: 06-21-2024 Patient encounter procedure 06/21/2024 10:15 AM EST Office Visit [facility] [place] [address] [place] [phone] Korey Valencia, DO [address] [place] [address] [facility] Start: 06-20-2024 End: 06-20-2024 Patient encounter procedure 06/20/2024 1:30 PM EST Office Visit [facility] [address] [place] [phone] Vernell Llamas MD [address] [place] [address] [facility] Start: 05-15-2024 End: 05-15-2024 Patient encounter procedure 05/15/2024 9:15 AM EST Office Visit [facility] [address] [place] [phone] Vernell Llamas MD [address] [place] [address] [facility] Start: 05-08-2024 Hemoglobin A1c measurement Diabetes: Hemoglobin A1C [facility] Start: 05-07-2024 End: 05-07-2024 Patient encounter procedure 05/07/2024 10:30 AM EST Office Visit [facility] [address] [place] [place] [address] Bautista Thayer MD [address] [place] [address] [place] [address] [facility] Start: 02-29-2024 End: 02-29-2024 Patient encounter procedure 02/29/2024 11:15 AM EST Office Visit [facility] [address] [place] [address] Mukesh Fernandez MD [address] [place] [address] Arrived [facility] Comment on above: Arrived Start: 12-24-2023 COVID-19 Vaccine () COVID-19 Vaccine () [facility] Start: 08-09-2023 Medicare Annual Wellness (AWV) Medicare Annual Wellness (AWV) [facility] Start: 07-25-2023 Hemoglobin A1c measurement Diabetes: Hemoglobin A1C [facility] Start: 06-26-2023 End: 06-26-2023 Patient encounter procedure 06/26/2023 11:00 AM EST Office Visit [facility] [address] [facility] [address] [place] [address] Bautista Thayer MD [address] [place] [address] [facility] [address] [place] [address] [facility] Start: 06-08-2023 End: 06-08-2024 XR Ankle - left 3 Views XR ankle 3+ views left Imaging Routine Acute left ankle pain Expected: 06/08/2023, Expires: 06/08/2024 [facility] Comment on above: Expected: 06/08/2023, Expires: Start: 06-08-2023 End: 06-08-2024 XR Foot - left 3 Views XR foot 3+ views left Imaging Routine Left foot pain Expected: 06/08/2023, Expires: 06/08/2024 [facility] Work Phone: Comment on above: Expected: 06/08/2023, Expires: Start: 06-08-2023 End: 06-08-2023 Patient encounter procedure 06/08/2023 11:00 AM EST Office Visit [facility] [address] [facility] [address] [place] [phone] Delores Carrero PA [address] [place] [address] [facility] [address] [place] [address] [facility] Start: 11-12-2022 Glaucoma screening Diabetes: Retinopathy Screening [facility] Start: 02-16-2016 RSV High Risk: (Elderly (60+) or Population) (1 - 1-dose 75+ series) RSV High Risk: (Elderly (60+) or Population) (1 - 1-dose 75+ series) [facility] Start: 2006 Screening for osteoporosis Bone Density Scan [facility] Start: 1991 Zoster Vaccines (1 of 2) Zoster Vaccines (1 of 2) [facility] Start: 1963 DTaP/Tdap/Td Vaccines (1 - Tdap) DTaP/Tdap/Td Vaccines (1 - Tdap) [facility] Start: 1951 Glaucoma screening Diabetes: Retinopathy Screening [facility] Start: 1941 Annual wellness visit Welcome to Medicare Visit [facility] Start: 1941 Creatinine measurement Creatinine Level [facility] Start: 1941 Echocardiography Echocardiogram [facility] Start: 1941 Hemoglobin A1c measurement Diabetes: Hemoglobin A1C [facility] Start: 1941 Lipid panel Lipid Panel [facility] Start: 1941 Potassium measurement Potassium Level [facility] Start: 1941 Thyroid stimulating hormone measurement TSH Level [facility] Dermatopathology exam Dermatopat hology exam Pathology and Cytology Timed Neoplasm of unspecified behavior of bone, soft tissue, and skin Release Upon Ordering for 1 Occurrences starting 02/29/2024 [facility] Work Phone: Comment on above: Release Upon Ordering for 1 Occurrences starting 02/29/2024 Patient Education Know your Meds [facility] Work Phone: Patient referral [facility] Work Phone: Immunizations Immunization Date Immunization Notes Care Provider Fa [facility] 02-06-2024 Influenza, High-dose Seasonal, Quadrivalent, Preservative Free Bautista Thayer MD Work Phone: [facility] 02-06-2024 influenza virus vacc ine, unspecified formulation Bautista Thayer MD Work Phone: [facility] 01-24-2023 Influenza, High-dose Seasonal, Quadrivalent, Preservative Free Delores Hemmer PA Work Phone: [facility] 02-14-2022 Influenza, High-dose Seasonal, Quadrivalent, Preservative Free Delores Hemmer PA Work Phone: [facility] 02-12-2021 influenza, high dose seasonal, preservative-free Delores Hemmer PA Work Phone: [facility] 02-24-2020 influenza, high dose seasonal, preservative-free Delores Hemmer PA Work Phone: [facility] 02-24-2020 Influenza, High-dose Seasonal, Quadrivalent, Preservative Free Delores Hemmer PA Work Phone: [facility] 02-21-2018 influenza, injectabl e, quadrivalent, contains preservative Delores Hemmer PA Work Phone: [facility] 03-30-2017 Influenza, injectabl e, Madin Vani Canine Kidney, preservative free, quadrivalent Delores Hemmer PA Work Phone: [facility] 03-05-2015 pneumococcal conjuga te vaccine, 13 valent Delores Hemmer PA Work Phone: [facility] 01-30-2014 diphtheria, tetanus toxoids and acellular pertussis vaccine Delores Hemmer PA Work Phone: [facility] 01-30-2014 influenza, seasonal, injectable Delores Hemmer PA Work Phone: [facility] 03-08-2011 pneumococcal polysaccharide vaccine, 23 valent Delores ALMANZA Work Phone: [facility] Payers Date Payer Category Payer Self-pay 2024 Unknown [id number] 2022 Unknown [employer] [id number] 2022-Present [address] [place] [address] [id number] 2020 Medicare (Managed Care) 1.2. [id number] 2020 Unknown [id number] 1940 Unknown [id number] 2.16.840.1.571072.3.579.2 .593 1941 Unknown [id number] 2.16.840.1.722099.3.579.2 .1259 1941 Unknown [id number] 2.16.840.1.799084.3.579.2 .1259 1941 Unknown [id number] 2.16.840.1.954858.3.579.2 .1259 1941 Unknown [id number] 2.16.840.1.966483.3.579.2 .1259 1941 Unknown [id number] 2.16.840.1.579095.3.579.2 .1259 1941 Unknown [id number] 2.16.840.1.052504.3.579.2 .1259 1941 Unknown [id number] 2.16.840.1.057625.3.579.2 .1259 1941 Unknown [id number] 2.16.840.1.988008.3.579.2 .1259 1941 Unknown [id number] 2.16.840.1.917805.3.579.2 .1259 1941 Unknown [id number] 2.16.840.1.928897.3.579.2 .1259 1941 Unknown [id number] 2.16.840.1.361454.3.579.2 .1259 1941 Unknown [id number] 2.16.840.1.066660.3.579.2 .1244 1941 Unknown [id number] 2.16.840.1.064161.3.579.2 .4 1941 Unknown [id number] 2.16840.1.944624.3.579.2 .1244 1941 Unknown [id number] 2.840.1.562269.3.579.2 .1244 Private Health Insurance [employer] MCR PFFS [id number] Unknown Reserve MCR PFFS OP [id number] 2.840.1.027351.3.579.2 .531 Unknown [id number] 2.0.1.691922.3.579.2 .531 Unknown [id number] 2.840.1.181580.3.579.2 .531 Social History Date Type Detail Facility Start: 11-01-2022 End: 06-27-2024 Tobacco smoking status WAIS Never smoked tobacco [facility] Work Phone: Start: 11-01-2022 End: 11-21-2024 Tobacco use and exposure Smokeless tobacco non-user [facility] Start: 04-25-2023 End: 12-05-2024 Alcohol intake Lifetime non-drinker (finding) [facility] Start: 11-01-2022 End: 01-02-2025 History of Social function [facility] Start: 11-01-2022 End: 01-02-2025 Humiliation, Afraid, Rape, and Kick questionnaire [HARK] [facility] Within the last year , have you been afraid of your partner or ex-partner? No [facility] Do you belong to any clubs or organizations such as caodaism groups, unions, fraternal [...] Start: 06-25-2024 End: 06-27-2024 Sex Female (finding) [facility] Start: 1940 Sex Assigned At Female F [facility] Start: 12-19-2024 End: 01-02-2025 Alcoholic beverage intake Ex-drinker (finding) [facility] Work Phone: Medical Equipment Procedure Code Equipment Code Equipment Origin al Text Equipment Identifier Dates USE DIRECTED DAILY [id number] Start: 11-01-2022 End: 06-08-2023 use to test BLOO D SUGAR THREE TIMES DAILY [id number] Start: 12-16-2022 Inject 1 each un ninoska the skin in the morning and 1 each in the evening and 1 each before bedtime. USE DIRECTED DAILY. [id number] Start: 06-08-2023 Inject 1 each un ninoska the skin in the morning and 1 each in the evening and 1 each before bedtime. USE DIRECTED DAILY. [id number] Start: 09-05-2024 End: 09-05-2025 Goals Date Patient Goal Desired Activity /State Functional Status Date Assessment Result Facility 11-11-2024 Patient Health Quest ionnaire 2 item (PHQ-2) [Reported] [facility] 08-12-2024 Patient Health Quest ionnaire 2 item (PHQ-2) [Reported] [facility] Clinical Notes 06-08-2023 to 01-02-2025 Nagi James MD - 01/02/2025 1:15 PM EDTPatient InstructionsAttachmentsNagi James MD - 12/19/2024 1:30 PM EDTPatient InstructionsAttachmentsPatient InstructionsAttachments Note Date & Type Note Facility 01-02-2025 Note Sinus rhythm, first- degree AV block, left axis deviation, poor R wave anterior progression, rate 70. [facility] 01-02-2025 History of Present illness Narrative CARDIOLOGY OFFICE NOTE Date: 01/02/2025 Patient: Willie Espinosa Date of : 1940 Primary Physician: aButista Thayer MD REASON FOR VISIT / CHIEF COMPLAINT: Cardiology follow-up post testing HPI: Willie Espinosa was seen in cardiac evaluation at the [facility] Cardiology office January 02, 2025. The patients problems are listed as in the impression below. Electronic medical records reviewed. Patient returns. He has a history of a second-degree heart block and short salvos of nonsustained ventricular tachycardia. She was on Cardizem and this was discontinued. Magnesium, Lasix and Crestor were added at her last visit. She returns now states that she still has some symptoms but overall feels better. She still has some dyspnea on exertion lightheadedness and dizziness. She has not passed out. Patient denies Chest Pain, SOB, Lightheadedness, Dizziness, TIA or CVA symptoms. No CHF or Edema. No Palpitations. No GI, or Bleeding Issues. No Recent Fever or Chills. Cardiovascular and general review of systems is otherwise negative. A 14-system review is otherwise negative, other than noted. PHYSICAL EXAMINATION: Vitals: 01/02/25 1342 BP: 126/54 Pulse: 70 General: No acute distress. Alert and oriented. [...] RECOMMENDATIONS: Patient has above-noted history and findings. Does have significant dysrhythmias which may have improved with the discontinuation of her Cardizem. Will obtain a 7-day BitbrainsO research asst. If her symptoms are still present and her monitor indicates evaluation with electrophysiology for possible pacemaker implantation. Further recommendation will render following. Patient will continue current medications. Exercise dietary program. Hydration. [employer] portal use was encouraged. We will plan to see back after the above testing with Laboratory Studies and ECG as ordered. [...] (VITAMIN D-2) 1.25 mg, Weekly furosemide (LASIX) 40 mg, oral, Daily before breakfast levothyroxine (SYNTHROID, LEVOXYL) 50 mcg, Daily before breakfast losartan (COZAAR) 25 mg, oral, 2 times daily Lyumjev KwikPen U-100 Insulin 8 Units, 2 times daily magnesium oxide (MAG-OX) 400 mg, oral, 2 times daily rosuvastatin (CRESTOR) 10 mg, oral, Daily Toujeo SoloStar U-300 Insulin 33 Units, Daily with evening meal ELECTROCARDIOGRAM: Sinus rhythm, first-degree AV block, left axis deviation, poor R wave anterior progression, rate 70. CARDIAC TESTING: Holter monitor, 11/2024: Predominant sinus rhythm with first-degree AV block. Average heart rate 63 bpm. Minimum heart rate 34 and 102 beats minute respectively. Second-degree heart block (type I and II ), nocturnal. 4 beat nonsustained ventricular tachycardia. LABORATORY DATA: 12/2024: Chem-7, CBC, liver function is normal except hemoglobin 11.7. PROBLEM LIST: Problem List[1] Nagi James MD, [facility] / Cardiology Of Note: Flinja voice recognition dictation software was utilized partially in the preparation of this note, therefore, inaccuracies in spelling, word choice and punctuation may have occurred which were not recognized at the time of signing. Patient was seen and examined with total time of visit including chart preparation, rooming, and chart completion exceeding 40 minutes. IAiyana LPN am scribing for, and in the presence of Dr. Nagi James MD, FACC. I, Dr. Nagi James MD, FACC, personally performed the services described in the documentation as scribed by Aiyana Zuñiga LPN in my presence, and confirm it is both accurate and complete. [1] Patient Active Problem List Diagnosis Other chest pain Never smoked tobacco History of lung cancer History of colon cancer Essential (primary) hypertension Murmur, cardiac Morbid obesity with body mass index (BMI) of 40.0 or higher (Multi) Type 2 diabetes mellitus with chronic kidney disease, with long-term current use of insulin (Multi) Localized edema LVH (left ventricular hypertrophy) Biatrial enlargement Diastolic dysfunction Mitral regurgitation Tricuspid regurgitation Hypothyroid Uncomplicated asthma (HHS-HCC) Dizziness and giddiness Near syncope Orthopnea Fatigue Blurry vision Encounter to discuss test results History of fall Acute diastolic heart failure Mixed hyperlipidemia documented in this encounter [facility] Work Phone: 01-02-2025 Instructions Aiyana Loza LPN - 01/02/2025 1:15 PM EDT Please bring all medicines, vitamins, [...] BMI was above normal measurement. Current weight: 80.7 kg (178 lb) Weight change since last visit (-) denotes wt loss -10.2 lbs Weight loss needed to achieve BMI 25: 62.7 Lbs Weight loss needed to achieve BMI 30: 39.7 Lbs Provided instructions on dietary changes. The following attachments cannot be sent through Care Everywhere.Heart Healthy Diet (Ethiopian)documented in this encounter [facility] Work Phone: 12-19-2024 History of Present illness Narrative CARDIOLOGY OFFICE NOTE Date: 12/19/2024 Patient: Willie Espinosa Date of : 1940 Primary Physician: Bautista Thayer MD REASON FOR VISIT / CHIEF COMPLAINT: Cardiology follow-up post testing. HPI: Willie Espinosa was seen in cardiac evaluation at the [facility] Cardiology office December 19, 2024. [...] diabetes and her LDL cholesterol of 131. [place] goal would be less than 70. She will continue her other medications. Refills were provided. Exercise dietary program. Hydration. DearJane use was encouraged. We will plan to [...] breakfast losartan (COZAAR) 25 mg, Daily RT Tousola SoloStar U-300 Insulin 33 Units ELECTROCARDIOGRAM: None this visit CARDIAC TESTING: Holter monitor, 11/2024: Predominant sinus rhythm with first-degree AV block. Average heart rate 63 bpm. Minimum heart rate 34 and 102 beats minute respectively. Second-degree heart block (type I and II ), nocturnal. 4 beat nonsustained ventricular tachycardia. LABORATORY DATA: None this visit PROBLEM LIST: Problem List[1] Nagi James MD, [facility] / Cardiology Of Note: Flinja voice recognition dictation software was utilized partially [...] diastolic heart failure documented in this encounter [facility] Work Phone: 12-19-2024 Instructions Eleonora Tobias [...] be sent through Care Everywhere.Heart Healthy Diet (Ethiopian)documented in this encounter [facility] Work Phone: 12-05-2024 History of Present [...] (2) Left Parotid Area, Right Parotid Area Guadalupe and brown stuck on verrucous scaly papule [...] limited to risks of scarring, darker or broadcast technician pigmentary changes, recurrence, incomplete removal and infection. [...] limited to risks of scarring, darker or broadcast technician pigmentary changes, recurrence, incomplete removal and infection. [...] Visit: 6 months documented in this encounter [facility] 11-21-2024 Note Sinus rhythm, low vo ltage, poor R wave anterior progression, question anterior LA. Rate 70. CPACS 11-21-2024 History of Present illness Narrative CARDIOLOGY CONSULTATION NOTE Patient: Willie sEpinosa Date of : 1940 Date: 11/21/2024 Primary [...] was seen in cardiac evaluation at the [facility] Cardiology office November 21, 2024. The patients [...] poor R wave anterior progression, question anterior LA. Rate 70. CARDIAC TESTING: Echocardiogram, 11/2023: Normal left ventricular function. Left ventricular ejection fraction 65 to 70% Left ventricular hypertrophy Biatrial enlargement LV diastolic dysfunction Mild mitral and tricuspid regurgitation Myoview cardiac fusion stress test, 04/2023: Negative study without evidence of ischemia or LA LVEF 82%. LABORATORY DATA: 11/24/2024: Chem-7, CBC normal except for creatinine 1.2, GFR 43. PROBLEM LIST: Problem List[1] Nagi James MD, [facility] / Cardiology Of Note: Flinja voice recognition dictation software was utilized partially [...] and in the presence of Dr. Nagi James MD, [facility]. I, Dr. Nagi James MD, [facility], personally performed the services described in [...] diastolic heart failure documented in this encounter [facility] Work Phone: 11-21-2024 Instructions Eleonora Tobias [...] be sent through Care Everywhere.Preventing Falls ED (Ethiopian)Heart Healthy Diet (Ethiopian)documented in this encounter [facility] Work Phone: 11-11-2024 History of Present [...] not included. HPI Diabetes Additional comments: Last 10.27 Last edited by Britni Aguayo MA on 11/11/2024 7:15 AM. Subjective Patient ID: Willie Espinosa is a 84 y.o. female who presents for Diabetes (Last 10.27). Pt states her levothyroxine has been making [...] being taken. She does not see a reconditioner.Eye exam is current. Over the past 2 [...] TIMES DAILY 270 tablet 1 Continuous Glucose Painter And Decorator Apprentice (FreeStyle Ivy 2 [place]) device Inject 1 Device under the skin Daily 1 each 0 Continuous Glucose Sensor (FreeStyle Ivy 2 Sensor) misc Inject 1 Device under the skin every 14 (fourteen) days 6 each 3 Elastic Bandages & Supports (Post-OP Shoe/Soft Top Women) misc Apply the shoe daily, use until foot is healed 1 each 0 ergocalciferol (Vitamin D2) 1.25 MG (89362 UT) capsule Take 1 capsule (1.25 mg) [...] PARTIAL Left Left lung frontal lobe removed WI ARTHROCENTESIS ASPIR&/INJ MAJOR JT/BURSA W/O US Right [...] diet and exercise. Relevant Medications insulin lispro-aabc (Lyumdanny Hackett) 100 UNIT/ML pen Other Relevant Orders POCT [...] 02/11/2025) for Diabetes. documented in this encounter [facility] 10-18-2024 Telephone encounter Note Refill sent in for pt of Losartan [facility] 10-18-2024 Miscellaneous Notes Refill sent in for pt of Losartan documented in this encounter [facility] 08-12-2024 History of Present illness Narrative Associated [...] being taken. She does not see a reconditioner.Eye exam is current. Current Outpatient Medications on [...] DAILY 270 tablet 1 Continuous Blood Gluc Painter And Decorator Apprentice (FreeStyle Ivy 2 [place]) device USE DIRECTED DAILY FOR 365 DAYS Continuous Glucose Sensor (FreeStyle Ivy 2 Sensor) misc Inject 1 Device under the skin every 14 (fourteen) days 6 each 3 Elastic Bandages & Supports (Post-OP Shoe/Soft Top Women) misc Apply the shoe daily, use until foot is healed 1 each 0 ergocalciferol (Vitamin D2) 1.25 MG (43654 UT) capsule Take 1 capsule (1.25 mg) [...] PARTIAL Left Left lung frontal lobe removed WI ARTHROCENTESIS ASPIR&/INJ MAJOR JT/BURSA W/O US Right [...] List Items Addressed This Visit Diabetic retinopathy ([facility]/HCC) Relevant Medications insulin aspart (NovoLOG FLEXPEN) 100 UNIT/ML pen Hypothyroidism (CMS/[facility]) Relevant Orders TSH W/REFLEX TO FT4 Chronic kidney disease, stage 3b (HCC) (CMS/[facility]) Monitor Increase fluids Avoid nephrotoxic substances Avoid NSAIDs such as Ibuprofen, Motrin, Naprosyn. Increase fluids. Uncontrolled type 2 diabetes mellitus with hypoglycemia (CMS/HCC) Relevant Medications insulin glargine (Toujeo Max SoloStar) 300 UNIT/ML injection Other Relevant Orders Microalbumin / creatinine urine ratio POCT Glycated hemoglobin, total (Completed) Type 2 diabetes mellitus with diabetic chronic kidney disease ([facility]/HCC) No Tobacco use Follow ADA 1800 [...] 11/11/2024) for Diabetes. documented in this encounter [facility] [place] 08-02-[facility] History of Present illness Narrative Subjective [...] skin of nose documented in this encounter [facility] [place] 07-03-2024 History of Present illness Narrative HPI [...] in 1 month documented in this encounter [facility] [place] 06-21-2024 History of Present illness Narrative Subjective [...] 20 capsule, Rfl: 0 Continuous Blood Gluc Painter And Decorator Apprentice (FreeStyle Ivy 2 [place]) device, USE DIRECTED DAILY FOR 365 DAYS, Disp: , Rfl: Continuous Glucose Sensor (FreeStyle Ivy 2 Sensor) misc, Inject 1 Device under the skin every 14 (fourteen) days, Disp: 6 each, Rfl: 3 Elastic Bandages & Supports (Post-OP Shoe/Soft Top Women) misc, Apply the shoe daily, use until foot is healed, Disp: 1 each, Rfl: 0 ergocalciferol (Vitamin D2) 1.25 MG (79213 UT) capsule, Take 1 capsule (1.25 mg) [...] PARTIAL Left Left lung frontal lobe removed [place] ARTHROCENTESIS ASPIR&/INJ MAJOR JT/BURSA W/O US Right [...] min Stress: No Stress Concern Present (11/01/2022) [employer] - Occupational Stress Questionnaire Feeling of Stress : Only a little Social Connections: Moderately Integrated (11/01/2022) Social Connection and Isolation Panel [NHANES] Frequency of Communication with Friends and Family: More than three times a week Frequency of Social Gatherings with Friends and Family: More than three times a week Attends [employer] Services: More than 4 times per year [...] serous disability, and documented in this encounter [facility] [place] 06-20-2024 History of Present illness Narrative Images [...] meds, nerve injury, and recurrence were addressed.) [place] Protocol: Procedure explained and questions answered to [...] sodium bicarbonate Procedure Details: Biopsy accession number: [id number] Biopsy lab: [facility] Date of biopsy: 02/29/2024 Frozen section biopsy [...] Yes Was reconstruction performed by the same [facility] surgeon? No If no, what is the specialty of the surgeon who did the reconstruction? ENT facial plastics When was reconstruction performed? different day Antibiotics: Were antibiotics given on the day of surgery? Yes When were antibiotics given? post-operative Indication for post-operative antibiotics: anatomic location [facility] Post Operative Type of repair: Referred for [...] 11/28/2024, skin check documented in this encounter [facility] [place] 05-16-2024 History of Present illness Narrative Associated Problem(s): Essential hypertension (CMS/HCC) Narrative & [place] [address] Cardiology Report Signed Patient: WILLIE ESPINOSA MR#: [id number] : 1940 Acct:[id number] Age/Sex: 83 / F ADM Date: 11/23/23 Loc: CARD Attending Dr: BAUTISTA THAYER Ordering Physician: BAUTISTA THAYER Date of Service: 11/23/23 Procedure(s): CA echo doppler complete Accession Number(s): [id number] cc: BAUTISTA THAYER Patient Name: WILLIE ESPINOSA MR#: [id number] : 1940 Exam Date: 11/23/2023 Ordering Doctor: [...] DAILY 270 tablet 1 Continuous Blood Gluc Painter And Decorator Apprentice (FreeStyle Ivy 2 [place]) device USE DIRECTED DAILY FOR 365 DAYS Continuous Glucose Sensor (FreeStyle Ivy 2 Sensor) misc Inject 1 Device under the skin every 14 (fourteen) days 6 each 3 Elastic Bandages & Supports (Post-OP Shoe/Soft Top Women) misc Apply the shoe daily, use until foot is healed 1 each 0 ergocalciferol (Vitamin D2) 1.25 MG (74396 UT) capsule Take 1 capsule (1.25 mg) [...] Do you have a medical power of prosecuting attorney?: No Objective : BP 128/78 Pulse 72 [...] Essential hypertension (CMS/HCC) Narrative & [place] [address] Cardiology Report Signed Patient: WILLIE ESPINOSA MR#: [id number] : 1940 Acct:[id number] Age/Sex: 83 / F ADM Date: 11/23/23 Loc: CARD Attending Dr: BAUTISTA THAYER Ordering Physician: BAUTISTA THAYER Date of Service: 11/23/23 Procedure(s): CA echo doppler complete Accession Number(s): [id number] cc: BAUTISTA THAYER Patient Name: WILLIE ESPINOSA MR#: [id number] : 1940 Exam Date: 11/23/2023 Ordering Doctor: [...] Relevant Medications ergocalciferol (Vitamin D2) 1.25 MG (23747 UT) capsule Uncontrolled type 2 diabetes mellitus [...] May 16, 2024 documented in this encounter [facility] [place] 04-09-2024 History of Present illness Narrative Associated [...] DAILY 270 tablet 1 Continuous Blood Gluc Painter And Decorator Apprentice (FreeStyle Ivy 2 [place]) device USE DIRECTED DAILY FOR 365 DAYS Continuous Glucose Sensor (FreeStyle Ivy 2 Sensor) misc Inject 1 Device under the skin every 14 (fourteen) days 6 each 3 Elastic Bandages & Supports (Post-OP Shoe/Soft Top Women) misc Apply the shoe daily, use until foot is healed 1 each 0 ergocalciferol (Vitamin D2) 1.25 MG (49477 UT) capsule Take 1 capsule (1.25 mg) [...] PARTIAL Left Left lung frontal lobe removed [place] ARTHROCENTESIS ASPIR&/INJ MAJOR JT/BURSA W/O US Right [...] DAILY 270 tablet 1 Continuous Blood Gluc Painter And Decorator Apprentice (FreeStyle Ivy 2 [place]) device USE DIRECTED DAILY FOR 365 DAYS Continuous Glucose Sensor (FreeStyle Ivy 2 Sensor) misc Inject 1 Device under the skin every 14 (fourteen) days 6 each 3 Elastic Bandages & Supports (Post-OP Shoe/Soft Top Women) misc Apply the shoe daily, use until foot is healed 1 each 0 ergocalciferol (Vitamin D2) 1.25 MG (75940 UT) capsule Take 1 capsule (1.25 mg) [...] PARTIAL Left Left lung frontal lobe removed [place] ARTHROCENTESIS ASPIR&/INJ MAJOR JT/BURSA W/O US Right [...] follow-ups on file. documented in this encounter [facility] [place] 04-05-2024 Telephone encounter Note Sent. [facility] [place] 04-05-2024 Miscellaneous Notes Sent. documented in this encounter [facility] [place] 02-29-2024 History of Present illness Narrative Images [...] limited to risks of scarring, darker or broadcast technician pigmentary changes, recurrence, incomplete removal and infection. [...] Seborrheic keratosis, inflamed Left Forearm - Anterior [place] and brown stuck on verrucous scaly papule [...] limited to risks of scarring, darker or broadcast technician pigmentary changes, recurrence, incomplete removal and infection. [...] tissue, and skin Mid Tip of Nose [place] pearly papule Lesion biopsy Type of biopsy: [...] pending biopsy results documented in this encounter [facility] [place] 02-21-2024 Telephone encounter Note $20.00 copay [facility] [place] 02-21-2024 Miscellaneous Notes $20.00 copay documented in this encounter [facility] [place] 02-06-2024 History of Present illness Narrative Associated Problem(s): History of COVID-19 Patient had last March Patient inquires about new vaccine Has immunity Associated Problem(s): Uncontrolled type 2 diabetes mellitus with hypoglycemia (CMS/[facility]) No Tobacco use Follow ADA 1800 diet [...] being taken. She does not see a reconditioner.Eye exam is current. Current Outpatient Medications on File Prior to Visit Medication Sig Dispense Refill [DISCONTINUED] Continuous Glucose Sensor (FreeStyle Ivy 2 Sensor) [facility] USE 1 SENSOR EVERY 14 DAYS acetaminophen [...] DAILY 270 tablet 1 Continuous Blood Gluc Painter And Decorator Apprentice (FreeStyle Ivy 2 [place]) device USE DIRECTED DAILY FOR 365 DAYS Elastic Bandages & Supports (Post-OP Shoe/Soft Top Women) misc Apply the shoe daily, use until foot is healed 1 each 0 ergocalciferol (Vitamin D2) 1.25 MG (48281 UT) capsule Take 1 capsule (1.25 mg) [...] PARTIAL Left Left lung frontal lobe removed [place] ARTHROCENTESIS ASPIR&/INJ MAJOR JT/BURSA W/O US Right [...] Uncontrolled type 2 diabetes mellitus with hypoglycemia ([facility]) No Tobacco use Follow ADA 1800 diet [...] Relevant Orders Influenza, high-dose seasonal, quadrivalent, PF ([id number]) (Fluzone High Dose [place] 0.7mL dose) (Completed) No follow-ups on file. documented in this encounter [facility] [place] 06-08-2023 History of Present illness Narrative HPI [...] chew. 21 capsule 1 Continuous Blood Gluc Painter And Decorator Apprentice (FreeStyle Ivy 2 [place]) device USE DIRECTED DAILY FOR 365 DAYS Continuous Blood Gluc Sensor (FreeStyle Ivy 2 Sensor) [facility] USE 1 SENSOR EVERY 14 DAYS ergocalciferol (Vitamin D2) 1.25 MG (60600 UT) capsule Take 1 capsule (1.25 mg) [...] PARTIAL Left Left lung frontal lobe removed [place] ARTHROCENTESIS ASPIR&/INJ MAJOR JT/BURSA W/O US Right [...] insulin, unspecified laterality, unspecified retinopathy severity (CMS/HCC) - insulin pen needle (BD Pen Needle [...] diffuse otitis externa of both ears - xwnbunci-dahmpwowi-cylkptnxpmqigc (Cortisporin) 3.5-45997-6 otic suspension; Administer 3 drops into each [...] in this encounter [facility] Evaluation note Diagnosis Type 2 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, with long-term current use of insulin, unspecified laterality, unspecified retinopathy severity ([facility]/HCC)- Primary Diabetic autonomic neuropathy associated with type 2 diabetes mellitus ([facility]/HCC) Type II or unspecified type diabetes mellitus with neurological manifestations, not stated as uncontrolled Left foot pain Pain in soft tissues of limb Acute left ankle pain Acute diffuse otitis externa of both ears documented in this encounter [facility] Healthcare[facility] note* Diagnosis Diabetic autonomic neuropathy associated with type 2 diabetes mellitus ([facility]/HCC)- Primary Type II or unspecified type diabetes mellitus with neurological manifestations, not stated as uncontrolled Edema, unspecified type Degeneration of lumbar intervertebral disc Degeneration of lumbar or lumbosacral intervertebral disc Vitamin D deficiency Diabetic nephropathy associated with type 2 diabetes mellitus (HCC) ([facility]/HCC) Morbid obesity ([facility]/HCC) Morbid obesity 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 of sigmoid colon ([facility]/HCC) Malignant neoplasm of sigmoid colon Stage 3a chronic kidney disease (HCC) ([facility]) Stage 3 chronic kidney disease, unspecified whether stage 3a or 3b CKD (HCC) ([facility])- Primary Diabetes insipidus ([facility]) Diabetes insipidus Acquired hypothyroidism ([facility]) Unspecified hypothyroidism 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, unspecified laterality ([facility]) Diabetic nephropathy associated with type 2 diabetes mellitus (HCC) ([facility]) Uncontrolled type 2 diabetes mellitus with hypoglycemia, unspecified hypoglycemia coma status ([facility]) Flu vaccine need Uncontrolled diabetes mellitus with hyperglycemia, with long-term current use of insulin ([facility])- Primary Uncontrolled type 2 diabetes mellitus with hypoglycemia, unspecified hypoglycemia coma status ([facility]) 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 ([facility]) Stage 3a chronic kidney disease (HCC) ([facility]) Flatulence, eructation and gas pain Flatulence, eructation, and gas pain Diabetic autonomic neuropathy associated with type 2 diabetes mellitus ([facility]/HCC)- Primary Type II or unspecified type diabetes mellitus with neurological manifestations, not stated as uncontrolled 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, unspecified laterality ([facility]) 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 ([facility]) Uncontrolled type 2 diabetes mellitus with hypoglycemia without coma ([facility]) 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[facility]) Type II or unspecified type diabetes mellitus without mention of complication, not stated as uncontrolled Chest pain due to myocardial ischemia, unspecified ischemic chest pain type ([facility]) Stage 3a chronic kidney disease (HCC) ([facility])- Primary Vitamin D deficiency Hypothyroidism, unspecified type ([facility]) Morbid (severe) obesity due to excess calories (E66.01) Type 2 diabetes mellitus with diabetic autonomic neuropathy, with long-term current use of insulin (CMS/HCC) Body mass index [BMI] 37.0-37.9, adult (Z68.37) Diabetic nephropathy associated with type 2 diabetes mellitus (HCC) (CMS/HCC) Closed fracture of left foot with delayed healing, subsequent encounter Diabetic nephropathy associated with type 2 diabetes mellitus (HCC) (CMS/HCC)- Primary Type 2 diabetes mellitus with diabetic autonomic neuropathy, with long-term current use of insulin ([facility]/HCC) Routine general medical examination at health care facility- Primary Routine general medical examination at a health care facility Abnormal glucose tolerance test Impaired glucose tolerance test Benign essential hypertension (CMS/HCC) Essential hypertension, benign Medicare annual wellness visit, subsequent Mixed hyperlipidemia (CMS/HCC) Mixed hyperlipidemia Hypothyroidism, unspecified type ([facility]) 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 (CMS/HCC) Diabetic nephropathy associated with type 2 diabetes mellitus (HCC) ([facility]/HCC) Uncontrolled type 2 diabetes mellitus with hypoglycemia, unspecified hypoglycemia coma status ([facility]) Dizziness Dizziness and giddiness Neck pain Cervicalgia Diabetic autonomic neuropathy associated with type 2 diabetes mellitus (CMS/HCC)- Primary Type II or unspecified type diabetes mellitus with neurological manifestations, not stated as uncontrolled Restless legs Restless legs syndrome (RLS) Edema, unspecified type Malignant neoplasm of sigmoid colon (CMS/HCC) Malignant neoplasm of sigmoid colon Atherosclerosis of aorta (CMS/HCC) Atherosclerosis of aorta Essential hypertension ([facility]) Unspecified essential hypertension Murmur, cardiac Undiagnosed cardiac murmurs Fall in home, initial encounter- Primary Uncontrolled type 2 diabetes mellitus with hypoglycemia, unspecified hypoglycemia coma status ([facility]) Encounter for vaccination History of COVID-19 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, unspecified laterality ([facility]/HCC) documented in this encounter [facility] HealthcareEvaluation note* Diagnosis Diabetic autonomic neuropathy [...] colon Stage 3a chronic kidney disease (HCC) ([facility]) Stage 3 chronic kidney disease, unspecified whether stage 3a or 3b CKD (HCC) ([facility])- Primary Diabetes insipidus ([facility]) Diabetes insipidus Acquired hypothyroidism ([facility]) Unspecified hypothyroidism 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, unspecified laterality ([facility]) Diabetic nephropathy associated with type 2 diabetes mellitus (HCC) ([facility]) Uncontrolled type 2 diabetes mellitus with hypoglycemia, unspecified hypoglycemia coma status ([facility]) Flu vaccine need Uncontrolled diabetes mellitus with hyperglycemia, with long-term current use of insulin ([facility])- Primary Uncontrolled type 2 diabetes mellitus with hypoglycemia, unspecified hypoglycemia coma status ([facility]) 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 ([facility]) Stage 3a chronic kidney disease (HCC) ([facility]) Flatulence, eructation and gas pain Flatulence, eructation, and gas pain Diabetic autonomic neuropathy associated with type 2 diabetes mellitus ([facility])- Primary Type II or unspecified type diabetes mellitus with neurological manifestations, not stated as uncontrolled 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, unspecified laterality ([facility]) 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 ([facility]) Uncontrolled type 2 diabetes mellitus with hypoglycemia without coma ([facility]) 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[facility]) Type II or unspecified type diabetes mellitus without mention of complication, not stated as uncontrolled Chest pain due to myocardial ischemia, unspecified ischemic chest pain type ([facility]) Stage 3a chronic kidney disease (HCC) ([facility])- Primary Vitamin D deficiency Hypothyroidism, unspecified type ([facility]) Morbid (severe) obesity due to excess calories (E66.01) Type 2 diabetes mellitus with diabetic autonomic neuropathy, with long-term current use of insulin ([facility]) Body mass index [BMI] 37.0-37.9, adult (Z68.37) Diabetic nephropathy associated with type 2 diabetes mellitus (HCC) ([facility]) Closed fracture of left foot with delayed healing, subsequent encounter Diabetic nephropathy associated with type 2 diabetes mellitus (HCC) ([facility])- Primary Type 2 diabetes mellitus with diabetic autonomic neuropathy, with long-term current use of insulin ([facility]) Routine general medical examination at health care facility- Primary Routine general medical examination at a health care facility Abnormal glucose tolerance test Impaired glucose tolerance test Benign essential hypertension (CMS/HCC) Essential hypertension, benign Medicare annual wellness visit, subsequent Mixed hyperlipidemia ([facility]/HCC) Mixed hyperlipidemia Hypothyroidism, unspecified type ([facility]) 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 (CMS/HCC) Diabetic nephropathy associated with type 2 diabetes mellitus (HCC) ([facility]) Uncontrolled type 2 diabetes mellitus with hypoglycemia, unspecified hypoglycemia coma status ([facility]) Dizziness Dizziness and giddiness Neck pain Cervicalgia Diabetic autonomic neuropathy associated with type 2 diabetes mellitus ([facility]/HCC)- Primary Type II or unspecified type diabetes mellitus with neurological manifestations, not stated as uncontrolled Restless legs Restless legs syndrome (RLS) Edema, unspecified type Malignant neoplasm of sigmoid colon ([facility]/HCC) Malignant neoplasm of sigmoid colon Atherosclerosis of aorta ([facility]/HCC) Atherosclerosis of aorta Essential hypertension ([facility]) Unspecified essential hypertension Murmur, cardiac Undiagnosed cardiac murmurs Fall in home, initial encounter- Primary Uncontrolled type 2 diabetes mellitus with hypoglycemia, unspecified hypoglycemia coma status ([facility]) Encounter for vaccination History of COVID-19 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, unspecified laterality ([facility]) Psoriasis vulgaris ([facility])- Primary Other psoriasis Seborrheic keratosis Actinic keratosis Seborrheic keratosis, inflamed Neoplasm of unspecified behavior of bone, soft tissue, and skin documented in this encounter [facility]* Diagnosis Diabetic autonomic neuropathy associated with type 2 diabetes mellitus ([facility]/HCC)- Primary Type II or unspecified type diabetes mellitus with neurological manifestations, not stated as uncontrolled Edema, unspecified type Degeneration of lumbar intervertebral disc Degeneration of lumbar or lumbosacral intervertebral disc Vitamin D deficiency Diabetic nephropathy associated with type 2 diabetes mellitus (HCC) ([facility]/HCC) Morbid obesity ([facility]/HCC) Morbid obesity 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 of sigmoid colon (CMS/HCC) Malignant neoplasm of sigmoid colon Stage 3a chronic kidney disease (HCC) ([facility]) Stage 3 chronic kidney disease, unspecified whether stage 3a or 3b CKD (HCC) ([facility])- Primary Diabetes insipidus ([facility]) Diabetes insipidus Acquired hypothyroidism ([facility]) Unspecified hypothyroidism 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, unspecified laterality ([facility]/HCC) Diabetic nephropathy associated with type 2 diabetes mellitus (HCC) ([facility]) Uncontrolled type 2 diabetes mellitus with hypoglycemia, unspecified hypoglycemia coma status ([facility]) Flu vaccine need Uncontrolled diabetes mellitus with hyperglycemia, with long-term current use of insulin ([facility])- Primary Uncontrolled type 2 diabetes mellitus with hypoglycemia, unspecified hypoglycemia coma status ([facility]/HCC) 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 ([facility]) Stage 3a chronic kidney disease (HCC) ([facility]) Flatulence, eructation and gas pain Flatulence, eructation, and gas pain Diabetic autonomic neuropathy associated with type 2 diabetes mellitus ([facility]/HCC)- Primary Type II or unspecified type diabetes mellitus with neurological manifestations, not stated as uncontrolled 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, unspecified laterality ([facility]) 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 ([facility]) Uncontrolled type 2 diabetes mellitus with hypoglycemia without coma ([facility]) 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[facility]) Type II or unspecified type diabetes mellitus without mention of complication, not stated as uncontrolled Chest pain due to myocardial ischemia, unspecified ischemic chest pain type ([facility]/HCC) Stage 3a chronic kidney disease (HCC) ([facility])- Primary Vitamin D deficiency Hypothyroidism, unspecified type ([facility]) Morbid (severe) obesity due to excess calories (E66.01) Type 2 diabetes mellitus with diabetic autonomic neuropathy, with long-term current use of insulin ([facility]) Body mass index [BMI] 37.0-37.9, adult (Z68.37) Diabetic nephropathy associated with type 2 diabetes mellitus (HCC) ([facility]) Closed fracture of left foot with delayed healing, subsequent encounter Diabetic nephropathy associated with type 2 diabetes mellitus (HCC) ([facility])- Primary Type 2 diabetes mellitus with diabetic autonomic neuropathy, with long-term current use of insulin ([facility]) Routine general medical examination at health care facility- Primary Routine general medical examination at a health care facility Abnormal glucose tolerance test Impaired glucose tolerance test Benign essential hypertension ([facility]) Essential hypertension, benign Medicare annual wellness visit, subsequent Mixed hyperlipidemia ([facility]) Mixed hyperlipidemia Hypothyroidism, unspecified type ([facility]) 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 ([facility]) Diabetic nephropathy associated with type 2 diabetes [...] mellitus with hypoglycemia, unspecified hypoglycemia coma status ([facility]/HCC) Encounter for vaccination History of COVID-19 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, unspecified laterality ([facility]/HCC) Uncontrolled type 2 diabetes mellitus with hypoglycemia, unspecified hypoglycemia coma status ([facility]/HCC) documented in this encounter [facility]* Diagnosis Diabetic autonomic neuropathy associated with type 2 diabetes mellitus (CMS/HCC)- Primary Type II or unspecified type diabetes mellitus with neurological manifestations, not stated as uncontrolled Edema, unspecified type Degeneration of lumbar intervertebral disc Degeneration of lumbar or lumbosacral intervertebral disc Vitamin D deficiency Diabetic nephropathy associated with type 2 diabetes mellitus (HCC) ([facility]/HCC) Morbid obesity ([facility]/HCC) Morbid obesity 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 of sigmoid colon (CMS/HCC) Malignant neoplasm of sigmoid colon Stage 3a chronic kidney disease (HCC) ([facility]/HCC) Stage 3 chronic kidney disease, unspecified whether stage 3a or 3b CKD (HCC) ([facility])- Primary Diabetes insipidus (CMS/HCC) Diabetes insipidus Acquired hypothyroidism ([facility]/HCC) Unspecified hypothyroidism 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, unspecified laterality (CMS/HCC) Diabetic nephropathy associated with type 2 diabetes mellitus (HCC) ([facility]/HCC) Uncontrolled type 2 diabetes mellitus with hypoglycemia, unspecified hypoglycemia coma status ([facility]/HCC) Flu vaccine need Uncontrolled diabetes mellitus with hyperglycemia, with long-term current use of insulin ([facility])- Primary Uncontrolled type 2 diabetes mellitus with hypoglycemia, unspecified hypoglycemia coma status ([facility]/HCC) 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 (CMS/HCC) Stage 3a chronic kidney disease (HCC) ([facility]/HCC) Flatulence, eructation and gas pain Flatulence, eructation, and gas pain Diabetic autonomic neuropathy associated with type 2 diabetes mellitus ([facility]/HCC)- Primary Type II or unspecified type diabetes mellitus with neurological manifestations, not stated as uncontrolled 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, unspecified laterality (CMS/HCC) 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 (CMS/HCC) Uncontrolled type 2 diabetes mellitus with hypoglycemia without coma ([facility]) 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[facility]/HCC) Type II or unspecified type diabetes mellitus without mention of complication, not stated as uncontrolled Chest pain due to myocardial ischemia, unspecified ischemic chest pain type ([facility]) Stage 3a chronic kidney disease (HCC) ([facility])- Primary Vitamin D deficiency Hypothyroidism, unspecified type ([facility]) Morbid (severe) obesity due to excess calories (E66.01) Type 2 diabetes mellitus with diabetic autonomic neuropathy, with long-term current use of insulin ([facility]) Body mass index [BMI] 37.0-37.9, adult (Z68.37) Diabetic nephropathy associated with type 2 diabetes mellitus (HCC) ([facility]) Closed fracture of left foot with delayed healing, subsequent encounter Diabetic nephropathy associated with type 2 diabetes mellitus (HCC) ([facility])- Primary Type 2 diabetes mellitus with diabetic autonomic neuropathy, with long-term current use of insulin ([facility]) Routine general medical examination at health care facility- Primary Routine general medical examination at a health care facility Abnormal glucose tolerance test Impaired glucose tolerance test Benign essential hypertension (CMS/[facility]) Essential hypertension, benign Medicare annual wellness visit, subsequent Mixed hyperlipidemia ([facility]) Mixed hyperlipidemia Hypothyroidism, unspecified type ([facility]) 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 (CMS/HCC) Diabetic nephropathy associated with type 2 diabetes mellitus (HCC) ([facility]) Uncontrolled type 2 diabetes mellitus with hypoglycemia, unspecified hypoglycemia coma status ([facility]) Dizziness Dizziness and giddiness Neck pain Cervicalgia Diabetic autonomic neuropathy associated with type 2 diabetes mellitus ([facility]/HCC)- Primary Type II or unspecified type diabetes mellitus with neurological manifestations, not stated as uncontrolled Restless legs Restless legs syndrome (RLS) Edema, unspecified type Malignant neoplasm of sigmoid colon (CMS/HCC) Malignant neoplasm of sigmoid colon Atherosclerosis of aorta ([facility]/HCC) Atherosclerosis of aorta Essential hypertension ([facility]/HCC) Unspecified essential hypertension Murmur, cardiac Undiagnosed cardiac murmurs Fall in home, initial encounter- Primary Uncontrolled type 2 diabetes mellitus with hypoglycemia, unspecified hypoglycemia coma status ([facility]) Encounter for vaccination History of COVID-19 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, unspecified laterality ([facility]) Cellulitis of left upper extremity- Primary documented in this encounter [facility]* Diagnosis Diabetic autonomic neuropathy associated with type 2 diabetes mellitus ([facility]/HCC)- Primary Type II or unspecified type diabetes mellitus with neurological manifestations, not stated as uncontrolled Edema, unspecified type Degeneration of lumbar intervertebral disc Degeneration of lumbar or lumbosacral intervertebral disc Vitamin D deficiency Diabetic nephropathy associated with type 2 diabetes mellitus (HCC) ([facility]/HCC) Morbid obesity ([facility]/HCC) Morbid obesity Diabetes insipidus ([facility]) Diabetes insipidus Malignant tumor of sigmoid colon ([facility]) Malignant neoplasm of sigmoid colon Stage 3a chronic kidney disease (HCC) ([facility]) Stage 3 chronic kidney disease, unspecified whether stage 3a or 3b CKD (HCC) ([facility])- Primary Diabetes insipidus ([facility]) Diabetes insipidus Acquired hypothyroidism ([facility]) Unspecified hypothyroidism 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, unspecified laterality ([facility]) Diabetic nephropathy associated with type 2 diabetes mellitus (HCC) ([facility]) Uncontrolled type 2 diabetes mellitus with hypoglycemia, unspecified hypoglycemia coma status ([facility]) Flu vaccine need Uncontrolled diabetes mellitus with hyperglycemia, with long-term current use of insulin ([facility])- Primary Uncontrolled type 2 diabetes mellitus with hypoglycemia, unspecified hypoglycemia coma status ([facility]/HCC) 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 ([facility]/HCC) Stage 3a chronic kidney disease (HCC) ([facility]) Flatulence, eructation and gas pain Flatulence, eructation, and gas pain Diabetic autonomic neuropathy associated with type 2 diabetes mellitus ([facility]/HCC)- Primary Type II or unspecified type diabetes mellitus with neurological manifestations, not stated as uncontrolled 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, unspecified laterality ([facility]/HCC) 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 ([facility]/HCC) Uncontrolled type 2 diabetes mellitus with hypoglycemia without coma ([facility]/HCC) 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[facility]) Type II or unspecified type diabetes mellitus without mention of complication, not stated as uncontrolled Chest pain due to myocardial ischemia, unspecified ischemic chest pain type ([facility]) Stage 3a chronic kidney disease (HCC) ([facility])- Primary Vitamin D deficiency Hypothyroidism, unspecified type ([facility]) Morbid (severe) obesity due to excess calories (E66.01) Type 2 diabetes mellitus with diabetic autonomic neuropathy, with long-term current use of insulin ([facility]) Body mass index [BMI] 37.0-37.9, adult (Z68.37) Diabetic nephropathy associated with type 2 diabetes mellitus (HCC) ([facility]) Closed fracture of left foot with delayed healing, subsequent encounter Diabetic nephropathy associated with type 2 diabetes mellitus (HCC) ([facility])- Primary Type 2 diabetes mellitus with diabetic autonomic neuropathy, with long-term current use of insulin ([facility]) Routine general medical examination at health care facility- Primary Routine general medical examination at a health care facility Abnormal glucose tolerance test Impaired glucose tolerance test Benign essential hypertension ([facility]) Essential hypertension, benign Medicare annual wellness visit, subsequent Mixed hyperlipidemia ([facility]) Mixed hyperlipidemia Hypothyroidism, unspecified type ([facility]) 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 ([facility]) Diabetic nephropathy associated with type 2 diabetes mellitus (HCC) ([facility]) Uncontrolled type 2 diabetes mellitus with hypoglycemia, unspecified hypoglycemia coma status ([facility]) Dizziness Dizziness and giddiness Neck pain Cervicalgia Diabetic autonomic neuropathy associated with type 2 diabetes mellitus ([facility])- Primary Type II or unspecified type diabetes mellitus with neurological manifestations, not stated as uncontrolled Restless legs Restless legs syndrome (RLS) Edema, unspecified type Malignant neoplasm of sigmoid colon ([facility]) Malignant neoplasm of sigmoid colon Atherosclerosis of aorta ([facility]) Atherosclerosis of aorta Essential hypertension ([facility]) Unspecified essential hypertension Murmur, cardiac Undiagnosed cardiac murmurs Fall in home, initial encounter- Primary Uncontrolled type 2 diabetes mellitus with hypoglycemia, unspecified hypoglycemia coma status ([facility]) Encounter for vaccination History of COVID-19 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, unspecified laterality ([facility]) Cellulitis of left upper extremity- Primary Routine general medical examination at health care facility- Primary Routine general medical examination at a health care facility Uncontrolled type 2 diabetes mellitus with hypoglycemia, unspecified hypoglycemia coma status ([facility]) Vitamin D deficiency Medicare annual wellness visit, subsequent Essential hypertension ([facility]) Unspecified essential hypertension documented in this encounter [facility] HealthcareEvaluation note* Diagnosis Diabetic autonomic neuropathy associated with type 2 diabetes mellitus ([facility])- Primary Type II or unspecified type diabetes mellitus with neurological manifestations, not stated as uncontrolled Edema, unspecified type Degeneration of lumbar intervertebral disc Degeneration of lumbar or lumbosacral intervertebral disc Vitamin D deficiency Diabetic nephropathy associated with type 2 diabetes mellitus (HCC) ([facility]) Morbid obesity ([facility]) Morbid obesity Diabetes insipidus ([facility]) Diabetes insipidus Malignant tumor of sigmoid colon ([facility]) Malignant neoplasm of sigmoid colon Stage 3a chronic kidney disease (HCC) ([facility]) Stage 3 chronic kidney disease, unspecified whether stage 3a or 3b CKD (HCC) ([facility])- Primary Diabetes insipidus ([facility]) Diabetes insipidus Acquired hypothyroidism ([facility]) Unspecified hypothyroidism 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, unspecified laterality ([facility]) Diabetic nephropathy associated with type 2 diabetes mellitus (HCC) ([facility]) Uncontrolled type 2 diabetes mellitus with hypoglycemia, unspecified hypoglycemia coma status ([facility]) Flu vaccine need Uncontrolled diabetes mellitus with hyperglycemia, with long-term current use of insulin ([facility])- Primary Uncontrolled type 2 diabetes mellitus with hypoglycemia, unspecified hypoglycemia coma status ([facility]) 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 ([facility]) Stage 3a chronic kidney disease (HCC) ([facility]) Flatulence, eructation and gas pain Flatulence, eructation, and gas pain Diabetic autonomic neuropathy associated with type 2 diabetes mellitus ([facility])- Primary Type II or unspecified type diabetes mellitus with neurological manifestations, not stated as uncontrolled 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, unspecified laterality ([facility]) 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 ([facility]) Uncontrolled type 2 diabetes mellitus with hypoglycemia without coma ([facility]) 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[facility]) Type II or unspecified type diabetes mellitus without mention of complication, not stated as uncontrolled Chest pain due to myocardial ischemia, unspecified ischemic chest pain type ([facility]) Stage 3a chronic kidney disease (HCC) ([facility])- Primary Vitamin D deficiency Hypothyroidism, unspecified type ([facility]) Morbid (severe) obesity due to excess calories (E66.01) Type 2 diabetes mellitus with diabetic autonomic neuropathy, with long-term current use of insulin ([facility]) Body mass index [BMI] 37.0-37.9, adult (Z68.37) Diabetic nephropathy associated with type 2 diabetes mellitus (HCC) ([facility]) Closed fracture of left foot with delayed healing, subsequent encounter Diabetic nephropathy associated with type 2 diabetes mellitus (HCC) ([facility])- Primary Type 2 diabetes mellitus with diabetic autonomic neuropathy, with long-term current use of insulin ([facility]) Routine general medical examination at health care facility- Primary Routine general medical examination at a health care facility Abnormal glucose tolerance test Impaired glucose tolerance test Benign essential hypertension ([facility]) Essential hypertension, benign Medicare annual wellness visit, subsequent Mixed hyperlipidemia ([facility]) Mixed hyperlipidemia Hypothyroidism, unspecified type ([facility]) 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 ([facility]) Diabetic nephropathy associated with type 2 diabetes mellitus (HCC) ([facility]) Uncontrolled type 2 diabetes mellitus with hypoglycemia, unspecified hypoglycemia coma status ([facility]) Dizziness Dizziness and giddiness Neck pain Cervicalgia Diabetic autonomic neuropathy associated with type 2 diabetes mellitus ([facility])- Primary Type II or unspecified type diabetes mellitus with neurological manifestations, not stated as uncontrolled Restless legs Restless legs syndrome (RLS) Edema, unspecified type Malignant neoplasm of sigmoid colon ([facility]) Malignant neoplasm of sigmoid colon Atherosclerosis of aorta ([facility]) Atherosclerosis of aorta Essential hypertension ([facility]) Unspecified essential hypertension Murmur, cardiac Undiagnosed cardiac murmurs Fall in home, initial encounter- Primary Uncontrolled type 2 diabetes mellitus with hypoglycemia, unspecified hypoglycemia coma status ([facility]) Encounter for vaccination History of COVID-19 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, unspecified laterality ([facility]) Cellulitis of left upper extremity- Primary Routine general medical examination at health care facility- Primary Routine general medical examination at a health care facility Uncontrolled type 2 diabetes mellitus with hypoglycemia, unspecified hypoglycemia coma status ([facility]) Vitamin D deficiency Medicare annual wellness visit, subsequent Essential hypertension ([facility] [facility]) Unspecified essential hypertension Type 2 diabetes mellitus with diabetic cataract ([facility]) Type II or unspecified type diabetes mellitus [...] diabetes mellitus with diabetic neuropathy, unspecified (CMS/HCC) USP (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 of insulin (CMS/HCC) Basal cell carcinoma (BCC) of skin of nose documented in this encounter [facility] HealthcareEvaluation note* Diagnosis Diabetic autonomic neuropathy [...] neuropathy associated with type 2 diabetes mellitus ([facility]/HCC)- Primary Type II or unspecified type diabetes mellitus with neurological manifestations, not stated as uncontrolled 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, unspecified laterality (CMS/HCC) 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 (CMS/HCC) Uncontrolled type 2 diabetes mellitus with hypoglycemia without coma ([facility]/HCC) 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[facility]) Type II or unspecified type diabetes mellitus without mention of complication, not stated as uncontrolled Chest pain due to myocardial ischemia, unspecified ischemic chest pain type (CMS/HCC) Stage 3a chronic kidney disease (HCC) ([facility])- Primary Vitamin D deficiency Hypothyroidism, unspecified type ([facility]) Morbid (severe) obesity due to excess calories (E66.01) Type 2 diabetes mellitus with diabetic autonomic neuropathy, with long-term current use of insulin ([facility]) Body mass index [BMI] 37.0-37.9, adult (Z68.37) Diabetic nephropathy associated with type 2 diabetes mellitus (HCC) ([facility]) Closed fracture of left foot with delayed healing, subsequent encounter Diabetic nephropathy associated with type 2 diabetes mellitus (HCC) ([facility])- Primary Type 2 diabetes mellitus with diabetic autonomic neuropathy, with long-term current use of insulin ([facility]) Routine general medical examination at health care facility- Primary Routine general medical examination at a health care facility Abnormal glucose tolerance test Impaired glucose tolerance test Benign essential hypertension ([facility]) Essential hypertension, benign Medicare annual wellness visit, subsequent Mixed hyperlipidemia ([facility]) Mixed hyperlipidemia Hypothyroidism, unspecified type ([facility]) 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 (CMS/HCC) Diabetic nephropathy associated with type 2 diabetes mellitus (HCC) ([facility]) Uncontrolled type 2 diabetes mellitus with hypoglycemia, unspecified hypoglycemia coma status ([facility]) Dizziness Dizziness and giddiness Neck pain Cervicalgia Diabetic autonomic neuropathy associated with type 2 diabetes mellitus ([facility]/HCC)- Primary Type II or unspecified type diabetes mellitus with neurological manifestations, not stated as uncontrolled Restless legs Restless legs syndrome (RLS) Edema, unspecified type Malignant neoplasm of sigmoid colon (CMS/HCC) Malignant neoplasm of sigmoid colon Atherosclerosis of aorta ([facility]/HCC) Atherosclerosis of aorta Essential hypertension ([facility]/HCC) Unspecified essential hypertension Murmur, cardiac Undiagnosed cardiac murmurs Fall in home, initial encounter- Primary Uncontrolled type 2 diabetes mellitus with hypoglycemia, unspecified hypoglycemia coma status ([facility]) Encounter for vaccination History of COVID-19 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, unspecified laterality ([facility]) Cellulitis of left upper extremity- Primary Routine general medical examination at health care facility- Primary Routine general medical examination at a health care facility Uncontrolled type 2 diabetes mellitus with hypoglycemia, unspecified hypoglycemia coma status ([facility]) Vitamin D deficiency Medicare annual wellness visit, subsequent Essential hypertension ([facility]) Unspecified essential hypertension Type 2 diabetes mellitus with diabetic cataract ([facility]) Type II or unspecified type diabetes mellitus with ophthalmic manifestations, not stated as uncontrolled Morbid (severe) obesity due to excess calories ([facility]) Body mass index (BMI) 35.0-35.9, adult Type 2 diabetes mellitus with unspecified diabetic retinopathy without macular edema ([facility]) Type 2 diabetes mellitus with other specified complication ([facility]) Mixed hyperlipidemia ([facility]) Mixed hyperlipidemia Type 2 diabetes mellitus with diabetic autonomic (poly)neuropathy ([facility]) Type 2 diabetes mellitus with mild nonproliferative diabetic retinopathy without macular edema, unspecified eye ([facility]) Type 2 diabetes mellitus with diabetic chronic kidney disease ([facility]) Chronic kidney disease, stage 3a (HCC) ([facility]) Malignant neoplasm of sigmoid colon ([facility]/HCC) Malignant neoplasm of sigmoid colon Type 2 diabetes mellitus with diabetic neuropathy, unspecified ([facility]) 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[facility]) [facility] defect of nose- Primary documented in this encounter [facility] HealthcareEvaluation noteNo assessment information availableC[facility] Work Phone: Evaluation note* Diagnosis Diabetic autonomic neuropathy associated with type 2 diabetes mellitus ([facility]/HCC)- Primary Type II or unspecified type diabetes mellitus with neurological manifestations, not stated as uncontrolled Edema, unspecified type Degeneration of lumbar intervertebral disc Degeneration of lumbar or lumbosacral intervertebral disc Vitamin D deficiency Diabetic nephropathy associated with type 2 diabetes mellitus (HCC) ([facility]/HCC) Morbid obesity ([facility]/HCC) Morbid obesity 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 of sigmoid colon ([facility]/HCC) Malignant neoplasm of sigmoid colon Stage 3a chronic kidney disease (HCC) ([facility]) Stage 3 chronic kidney disease, unspecified whether stage 3a or 3b CKD (HCC) ([facility])- Primary Diabetes insipidus ([facility]) Diabetes insipidus Acquired hypothyroidism ([facility]) Unspecified hypothyroidism 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, unspecified laterality ([facility]) Diabetic nephropathy associated with type 2 diabetes mellitus (HCC) ([facility]) Uncontrolled type 2 diabetes mellitus with hypoglycemia, unspecified hypoglycemia coma status ([facility]) Flu vaccine need Uncontrolled diabetes mellitus with hyperglycemia, with long-term current use of insulin ([facility])- Primary Uncontrolled type 2 diabetes mellitus with hypoglycemia, unspecified hypoglycemia coma status ([facility]) 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 ([facility]) Stage 3a chronic kidney disease (HCC) ([facility]) Flatulence, eructation and gas pain Flatulence, eructation, and gas pain Diabetic autonomic neuropathy associated with type 2 diabetes mellitus ([facility])- Primary Type II or unspecified type diabetes mellitus with neurological manifestations, not stated as uncontrolled 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, unspecified laterality ([facility]) 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 ([facility]) Uncontrolled type 2 diabetes mellitus with hypoglycemia without coma ([facility]) 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[facility]) Type II or unspecified type diabetes mellitus without mention of complication, not stated as uncontrolled Chest pain due to myocardial ischemia, unspecified ischemic chest pain type ([facility]) Stage 3a chronic kidney disease (HCC) ([facility])- Primary Vitamin D deficiency Hypothyroidism, unspecified type ([facility]) Morbid (severe) obesity due to excess calories (E66.01) Type 2 diabetes mellitus with diabetic autonomic neuropathy, with long-term current use of insulin ([facility]) Body mass index [BMI] 37.0-37.9, adult (Z68.37) Diabetic nephropathy associated with type 2 diabetes mellitus (HCC) ([facility]) Closed fracture of left foot with delayed healing, subsequent encounter Diabetic nephropathy associated with type 2 diabetes mellitus (HCC) ([facility])- Primary Type 2 diabetes mellitus with diabetic autonomic neuropathy, with long-term current use of insulin ([facility]) Routine general medical examination at health care facility- Primary Routine general medical examination at a health care facility Abnormal glucose tolerance test Impaired glucose tolerance test Benign essential hypertension ([facility]) Essential hypertension, benign Medicare annual wellness visit, subsequent Mixed hyperlipidemia ([facility]) Mixed hyperlipidemia Hypothyroidism, unspecified type ([facility]) 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 ([facility]) Diabetic nephropathy associated with type 2 diabetes mellitus (HCC) ([facility]) Uncontrolled type 2 diabetes mellitus with hypoglycemia, unspecified hypoglycemia coma status ([facility]) Dizziness Dizziness and giddiness Neck pain Cervicalgia Diabetic autonomic neuropathy associated with type 2 diabetes mellitus ([facility])- Primary Type II or unspecified type diabetes mellitus with neurological manifestations, not stated as uncontrolled Restless legs Restless legs syndrome (RLS) Edema, unspecified type Malignant neoplasm of sigmoid colon ([facility]) Malignant neoplasm of sigmoid colon Atherosclerosis of aorta ([facility]) Atherosclerosis of aorta Essential hypertension ([facility]) Unspecified essential hypertension Murmur, cardiac Undiagnosed cardiac murmurs Fall in home, initial encounter- Primary Uncontrolled type 2 diabetes mellitus with hypoglycemia, unspecified hypoglycemia coma status ([facility]) Encounter for vaccination History of COVID-19 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, unspecified laterality ([facility]) Cellulitis of left upper extremity- Primary Routine general medical examination at health care facility- Primary Routine general medical examination at a health care facility Uncontrolled type 2 diabetes mellitus with hypoglycemia, unspecified hypoglycemia coma status ([facility]) Vitamin D deficiency Medicare annual wellness visit, subsequent Essential hypertension ([facility]) Unspecified essential hypertension Type 2 diabetes mellitus with diabetic cataract ([facility]) Type II or unspecified type diabetes mellitus with ophthalmic manifestations, not stated as uncontrolled Morbid (severe) obesity due to excess calories ([facility]) Body mass index (BMI) 35.0-35.9, adult Type 2 diabetes mellitus with unspecified diabetic retinopathy without macular edema ([facility]) Type 2 diabetes mellitus with other specified complication Mixed hyperlipidemia ([facility]) Mixed hyperlipidemia Type 2 diabetes mellitus with diabetic autonomic (poly)neuropathy Type 2 diabetes mellitus with mild nonproliferative diabetic retinopathy without macular edema, unspecified eye ([facility]) Type 2 diabetes mellitus with diabetic chronic kidney disease ([facility]) Chronic kidney disease, stage 3a (HCC) ([facility]) Malignant neoplasm of sigmoid colon ([facility]/HCC) Malignant neoplasm of sigmoid colon Type 2 diabetes mellitus with diabetic neuropathy, unspecified ([facility]/HCC) 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[facility]) Mohs defect of nose- Primary Basal cell carcinoma (BCC) of skin of nose documented in this encounter [facility] HealthcareEvaluation note* Diagnosis Diabetic autonomic neuropathy associated with type 2 diabetes mellitus ([facility]/HCC)- Primary Type II or unspecified type diabetes mellitus with neurological manifestations, not stated as uncontrolled Edema, unspecified type Degeneration of lumbar intervertebral disc Degeneration of lumbar or lumbosacral intervertebral disc Vitamin D deficiency Diabetic nephropathy associated with type 2 diabetes mellitus (HCC) ([facility]/HCC) Morbid obesity ([facility]/HCC) Morbid obesity 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 of sigmoid colon ([facility]) Malignant neoplasm of sigmoid colon Stage 3a chronic kidney disease (HCC) ([facility]) Stage 3 chronic kidney disease, unspecified whether stage 3a or 3b CKD (HCC) ([facility])- Primary Diabetes insipidus ([facility]) Diabetes insipidus Acquired hypothyroidism ([facility]) Unspecified hypothyroidism 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, unspecified laterality ([facility]) Diabetic nephropathy associated with type 2 diabetes mellitus (HCC) ([facility]) Uncontrolled type 2 diabetes mellitus with hypoglycemia, unspecified hypoglycemia coma status ([facility]) Flu vaccine need Uncontrolled diabetes mellitus with hyperglycemia, with long-term current use of insulin ([facility])- Primary Uncontrolled type 2 diabetes mellitus with hypoglycemia, unspecified hypoglycemia coma status ([facility]) 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 ([facility]) Stage 3a chronic kidney disease (HCC) ([facility]) Flatulence, eructation and gas pain Flatulence, eructation, and gas pain Diabetic autonomic neuropathy associated with type 2 diabetes mellitus ([facility]/HCC)- Primary Type II or unspecified type diabetes mellitus with neurological manifestations, not stated as uncontrolled 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, unspecified laterality ([facility]) 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 ([facility]) Uncontrolled type 2 diabetes mellitus with hypoglycemia without coma ([facility]) 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[facility]) Type II or unspecified type diabetes mellitus without mention of complication, not stated as uncontrolled Chest pain due to myocardial ischemia, unspecified ischemic chest pain type ([facility]) Stage 3a chronic kidney disease (HCC) ([facility])- Primary Vitamin D deficiency Hypothyroidism, unspecified type ([facility]) Morbid (severe) obesity due to excess calories (E66.01) Type 2 diabetes mellitus with diabetic autonomic neuropathy, with long-term current use of insulin ([facility]) Body mass index [BMI] 37.0-37.9, adult (Z68.37) Diabetic nephropathy associated with type 2 diabetes mellitus (HCC) ([facility]) Closed fracture of left foot with delayed healing, subsequent encounter Diabetic nephropathy associated with type 2 diabetes mellitus (HCC) ([facility])- Primary Type 2 diabetes mellitus with diabetic autonomic neuropathy, with long-term current use of insulin ([facility]) Routine general medical examination at health care facility- Primary Routine general medical examination at a health care facility Abnormal glucose tolerance test Impaired glucose tolerance test Benign essential hypertension ([facility]) Essential hypertension, benign Medicare annual wellness visit, subsequent Mixed hyperlipidemia ([facility]) Mixed hyperlipidemia Hypothyroidism, unspecified type ([facility]) 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 ([facility]) Diabetic nephropathy associated with type 2 diabetes mellitus (HCC) ([facility]) Uncontrolled type 2 diabetes mellitus with hypoglycemia, unspecified hypoglycemia coma status ([facility]) Dizziness Dizziness and giddiness Neck pain Cervicalgia Diabetic autonomic neuropathy associated with type 2 diabetes mellitus ([facility])- Primary Type II or unspecified type diabetes mellitus with neurological manifestations, not stated as uncontrolled Restless legs Restless legs syndrome (RLS) Edema, unspecified type Malignant neoplasm of sigmoid colon ([facility]) Malignant neoplasm of sigmoid colon Atherosclerosis of aorta ([facility]) Atherosclerosis of aorta Essential hypertension ([facility]) Unspecified essential hypertension Murmur, cardiac Undiagnosed cardiac murmurs Fall in home, initial encounter- Primary Uncontrolled type 2 diabetes mellitus with hypoglycemia, unspecified hypoglycemia coma status ([facility]) Encounter for vaccination History of COVID-19 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, unspecified laterality ([facility]) Cellulitis of left upper extremity- Primary Routine general medical examination at health care facility- Primary Routine general medical examination at a health care facility Uncontrolled type 2 diabetes mellitus with hypoglycemia, unspecified hypoglycemia coma status ([facility]) Vitamin D deficiency Medicare annual wellness visit, subsequent Essential hypertension ([facility]) Unspecified essential hypertension Type 2 diabetes mellitus with diabetic cataract ([facility]) Type II or unspecified type diabetes mellitus [...] 2 diabetes mellitus with diabetic neuropathy, unspecified ([facility]/HCC) USP (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 of insulin ([facility]/HCC) Basal cell carcinoma (BCC) of left side of nose- Primary Uncontrolled type 2 diabetes mellitus with hypoglycemia, unspecified hypoglycemia coma status ([facility]/HCC) 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, unspecified laterality ([facility]/HCC) Type 2 diabetes mellitus with diabetic chronic kidney disease ([facility]/HCC) Chronic kidney disease, stage 3b (HCC) ([facility]/HCC) Acquired hypothyroidism ([facility]) Unspecified hypothyroidism documented in this encounter [facility] HealthcareEvaluation note* Diagnosis Diabetic autonomic neuropathy associated with type 2 diabetes mellitus ([facility]/HCC)- Primary Type II or unspecified type diabetes mellitus with neurological manifestations, not stated as uncontrolled Edema, unspecified type Degeneration of lumbar intervertebral disc Degeneration of lumbar or lumbosacral intervertebral disc Vitamin D deficiency Diabetic nephropathy associated with type 2 diabetes mellitus (HCC) (CMS/HCC) Morbid obesity ([facility]/HCC) Morbid obesity 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 of sigmoid colon (CMS/HCC) Malignant neoplasm of sigmoid colon Stage 3a chronic kidney disease (HCC) ([facility]/HCC) Stage 3 chronic kidney disease, unspecified whether stage 3a or 3b CKD (HCC) ([facility]/HCC)- Primary Diabetes insipidus (CMS/HCC) Diabetes insipidus Acquired hypothyroidism ([facility]/HCC) Unspecified hypothyroidism 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, unspecified laterality (CMS/HCC) Diabetic nephropathy associated with type 2 diabetes mellitus (HCC) (CMS/HCC) Uncontrolled type 2 diabetes mellitus with hypoglycemia, unspecified hypoglycemia coma status ([facility]/HCC) Flu vaccine need Uncontrolled diabetes mellitus with hyperglycemia, with long-term current use of insulin ([facility])- Primary Uncontrolled type 2 diabetes mellitus with hypoglycemia, unspecified hypoglycemia coma status ([facility]) 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 ([facility]) Stage 3a chronic kidney disease (HCC) ([facility]) Flatulence, eructation and gas pain Flatulence, eructation, and gas pain Diabetic autonomic neuropathy associated with type 2 diabetes mellitus ([facility])- Primary Type II or unspecified type diabetes mellitus with neurological manifestations, not stated as uncontrolled 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, unspecified laterality ([facility]) 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 ([facility]) Uncontrolled type 2 diabetes mellitus with hypoglycemia without coma ([facility]) 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[facility]) Type II or unspecified type diabetes mellitus without mention of complication, not stated as uncontrolled Chest pain due to myocardial ischemia, unspecified ischemic chest pain type ([facility]) Stage 3a chronic kidney disease (HCC) ([facility])- Primary Vitamin D deficiency Hypothyroidism, unspecified type ([facility]) Morbid (severe) obesity due to excess calories (E66.01) Type 2 diabetes mellitus with diabetic autonomic neuropathy, with long-term current use of insulin ([facility]) Body mass index [BMI] 37.0-37.9, adult (Z68.37) Diabetic nephropathy associated with type 2 diabetes mellitus (HCC) ([facility]) Closed fracture of left foot with delayed healing, subsequent encounter Diabetic nephropathy associated with type 2 diabetes mellitus (HCC) ([facility])- Primary Type 2 diabetes mellitus with diabetic autonomic neuropathy, with long-term current use of insulin ([facility]) Routine general medical examination at health care facility- Primary Routine general medical examination at a health care facility Abnormal glucose tolerance test Impaired glucose tolerance test Benign essential hypertension ([facility]) Essential hypertension, benign Medicare annual wellness visit, subsequent Mixed hyperlipidemia ([facility]) Mixed hyperlipidemia Hypothyroidism, unspecified type ([facility]) 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 ([facility]) Diabetic nephropathy associated with type 2 diabetes mellitus (HCC) ([facility]) Uncontrolled type 2 diabetes mellitus with hypoglycemia, unspecified hypoglycemia coma status ([facility]) Dizziness Dizziness and giddiness Neck pain Cervicalgia Diabetic autonomic neuropathy associated with type 2 diabetes mellitus ([facility]/HCC)- Primary Type II or unspecified type diabetes mellitus with neurological manifestations, not stated as uncontrolled Restless legs Restless legs syndrome (RLS) Edema, unspecified type Malignant neoplasm of sigmoid colon (CMS/HCC) Malignant neoplasm of sigmoid colon Atherosclerosis of aorta (CMS/HCC) Atherosclerosis of aorta Essential hypertension ([facility]) Unspecified essential hypertension Murmur, cardiac Undiagnosed cardiac murmurs Fall in home, initial encounter- Primary Uncontrolled type 2 diabetes mellitus with hypoglycemia, unspecified hypoglycemia coma status ([facility]) Encounter for vaccination History of COVID-19 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, unspecified laterality ([facility]) Cellulitis of left upper extremity- Primary Routine general medical examination at health care facility- Primary Routine general medical examination at a health care facility Uncontrolled type 2 diabetes mellitus with hypoglycemia, unspecified hypoglycemia coma status ([facility]) Vitamin D deficiency Medicare annual wellness visit, subsequent Essential hypertension ([facility]) Unspecified essential hypertension Type 2 diabetes mellitus with diabetic cataract ([facility]) Type II or unspecified type diabetes mellitus with ophthalmic manifestations, not stated as uncontrolled Morbid (severe) obesity due to excess calories ([facility]) Body mass index (BMI) 35.0-35.9, adult Type 2 diabetes mellitus with unspecified diabetic retinopathy without macular edema ([facility]) Type 2 diabetes mellitus with other specified complication Mixed hyperlipidemia ([facility]) Mixed hyperlipidemia Type 2 diabetes mellitus with diabetic autonomic (poly)neuropathy Type 2 diabetes mellitus with mild nonproliferative diabetic retinopathy without macular edema, unspecified eye ([facility]) Type 2 diabetes mellitus with diabetic chronic kidney disease ([facility]) Chronic kidney disease, stage 3a (HCC) ([facility]/HCC) Malignant neoplasm of sigmoid colon ([facility]/HCC) Malignant neoplasm of sigmoid colon Type 2 diabetes mellitus with diabetic neuropathy, unspecified ([facility]) USP (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 of insulin ([facility]) Basal cell carcinoma (BCC) of left side of nose- Primary Uncontrolled type 2 diabetes mellitus with hypoglycemia, unspecified hypoglycemia coma status ([facility]) 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, unspecified laterality ([facility]/HCC) Type 2 diabetes mellitus with diabetic chronic kidney disease ([facility]/HCC) Chronic kidney disease, stage 3b (HCC) ([facility]) Acquired hypothyroidism ([facility]) Unspecified hypothyroidism Uncontrolled type 2 diabetes mellitus with hypoglycemia, unspecified hypoglycemia coma status (CMS/HCC) documented in this encounter [facility] HealthcareEvaluation note* Diagnosis Diabetic autonomic neuropathy [...] sigmoid colon Stage 3a chronic kidney disease (CMS-HCC) Stage 3 chronic kidney disease, unspecified whether stage 3a or 3b CKD ([facility])- Primary Diabetes insipidus (HCC) Diabetes insipidus Acquired [...] kidney disease Stage 3a chronic kidney disease ([facility]-HCC) Flatulence, eructation and gas pain Flatulence, [...] pain type Stage 3a chronic kidney disease ([facility]-HCC)- Primary Vitamin D deficiency Hypothyroidism, unspecified type Morbid (severe) obesity due to excess calories (E66.01) Type 2 diabetes mellitus with diabetic autonomic neuropathy, with long-term current use of insulin (HCC) Body mass index [BMI] 37.0-37.9, adult (Z68.37) Diabetic nephropathy associated with type 2 diabetes mellitus (HCC) Closed fracture of left foot with delayed healing, subsequent encounter Diabetic nephropathy associated with type 2 diabetes mellitus ([facility])- Primary Type 2 diabetes mellitus with diabetic autonomic neuropathy, with long-term current use of insulin ([facility]) Routine general medical examination at health care facility- Primary Routine general medical examination at a health care facility Abnormal glucose tolerance test Impaired glucose tolerance test Benign essential hypertension Essential hypertension, benign Medicare annual wellness visit, subsequent Mixed hyperlipidemia Mixed hyperlipidemia Hypothyroidism, unspecified type 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 ([facility]) Uncontrolled type 2 diabetes mellitus with hypoglycemia, unspecified hypoglycemia coma status ([facility]) Dizziness Dizziness and giddiness Neck pain Cervicalgia Diabetic autonomic neuropathy associated with type 2 diabetes mellitus ([facility])- Primary Type II or unspecified type diabetes [...] mellitus with hypoglycemia, unspecified hypoglycemia coma status ([facility]) Encounter for vaccination History of COVID-19 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, unspecified laterality ([facility]) Cellulitis of left upper extremity- Primary Routine general medical examination at health care facility- Primary Routine general medical examination at a health care facility Uncontrolled type 2 diabetes mellitus with hypoglycemia, unspecified hypoglycemia coma status ([facility]) Vitamin D deficiency Medicare annual wellness visit, subsequent Essential hypertension Unspecified essential hypertension Type 2 diabetes mellitus with diabetic cataract ([facility]) Type II or unspecified type diabetes mellitus with ophthalmic manifestations, not stated as uncontrolled Morbid (severe) obesity due to excess calories ([facility]) Body mass index (BMI) 35.0-35.9, adult Type 2 diabetes mellitus with unspecified diabetic retinopathy without macular edema ([facility]) Type 2 diabetes mellitus with other specified complication ([facility]) Mixed hyperlipidemia Mixed hyperlipidemia Type 2 diabetes mellitus with diabetic autonomic (poly)neuropathy (HCC) Type 2 diabetes mellitus with mild nonproliferative diabetic retinopathy without macular edema, unspecified eye ([facility]) Type 2 diabetes mellitus with diabetic chronic kidney disease (HCC) Chronic kidney disease, stage 3a ([facility]) 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 Type 2 diabetes mellitus with diabetic neuropathy, unspecified ([facility]) 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) Basal cell carcinoma (BCC) of left side of nose- Primary Uncontrolled type 2 diabetes mellitus with hypoglycemia, unspecified hypoglycemia coma status (HCC) 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, unspecified laterality (HCC) Type 2 diabetes mellitus with diabetic chronic kidney disease (HCC) Chronic kidney disease, stage 3b ([facility]-HCC) Acquired hypothyroidism Unspecified hypothyroidism Essential hypertension Unspecified essential hypertension documented in this encounter [facility] HealthcareEvaluation note* Diagnosis Diabetic autonomic neuropathy associated with type 2 diabetes mellitus (HCC)- Primary Type II or unspecified type diabetes mellitus with neurological manifestations, not stated as uncontrolled Edema, unspecified type Degeneration of lumbar intervertebral disc Degeneration of lumbar or lumbosacral intervertebral disc Vitamin D deficiency Diabetic nephropathy associated with type 2 diabetes mellitus (HCC) Morbid obesity ([facility]-HCC) Morbid obesity Diabetes insipidus (HCC) Diabetes insipidus 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 Stage 3a chronic kidney disease ([facility]-HCC) Stage 3 chronic kidney disease, unspecified whether stage 3a or 3b CKD ([facility])- Primary Diabetes insipidus (HCC) Diabetes insipidus Acquired [...] kidney disease Stage 3a chronic kidney disease ([facility]-HCC) Flatulence, eructation and gas pain Flatulence, [...] pain type Stage 3a chronic kidney disease ([facility])- Primary Vitamin D deficiency Hypothyroidism, unspecified type Morbid (severe) obesity due to excess calories (E66.01) Type 2 diabetes mellitus with diabetic autonomic neuropathy, with long-term current use of insulin ([facility]) Body mass index [BMI] 37.0-37.9, adult (Z68.37) Diabetic nephropathy associated with type 2 diabetes mellitus ([facility]) Closed fracture of left foot with delayed healing, subsequent encounter Diabetic nephropathy associated with type 2 diabetes mellitus ([facility])- Primary Type 2 diabetes mellitus with diabetic autonomic neuropathy, with long-term current use of insulin ([facility]) Routine general medical examination at health care facility- Primary Routine general medical examination at a health care facility Abnormal glucose tolerance test Impaired glucose tolerance test Benign essential hypertension Essential hypertension, benign Medicare annual wellness visit, subsequent Mixed hyperlipidemia Mixed hyperlipidemia Hypothyroidism, unspecified type 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 ([facility]) Uncontrolled type 2 diabetes mellitus with hypoglycemia, unspecified hypoglycemia coma status ([facility]) Dizziness Dizziness and giddiness Neck pain Cervicalgia Diabetic autonomic neuropathy associated with type 2 diabetes mellitus ([facility])- Primary Type II or unspecified type diabetes mellitus with neurological manifestations, not stated as uncontrolled Restless legs Restless legs syndrome (RLS) Edema, unspecified type Malignant neoplasm of sigmoid colon ([facility]) Malignant neoplasm of sigmoid colon Atherosclerosis of aorta Essential hypertension Unspecified essential hypertension Murmur, cardiac Undiagnosed cardiac murmurs Fall in home, initial encounter- Primary Uncontrolled type 2 diabetes mellitus with hypoglycemia, unspecified hypoglycemia coma status ([facility]) Encounter for vaccination History of COVID-19 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, unspecified laterality ([facility]) Cellulitis of left upper extremity- Primary Routine general medical examination at health care facility- Primary Routine general medical examination at a health care facility Uncontrolled type 2 diabetes mellitus with hypoglycemia, unspecified hypoglycemia coma status ([facility]) Vitamin D deficiency Medicare annual wellness visit, subsequent Essential hypertension Unspecified essential hypertension Type 2 diabetes mellitus with diabetic cataract ([facility]) Type II or unspecified type diabetes mellitus with ophthalmic manifestations, not stated as uncontrolled Morbid (severe) obesity due to excess calories ([facility]) Body mass index (BMI) 35.0-35.9, adult Type 2 diabetes mellitus with unspecified diabetic retinopathy without macular edema ([facility]) Type 2 diabetes mellitus with other specified complication ([facility]) Mixed hyperlipidemia Mixed hyperlipidemia Type 2 diabetes mellitus with diabetic autonomic (poly)neuropathy ([facility]) Type 2 diabetes mellitus with mild nonproliferative diabetic retinopathy without macular edema, unspecified eye (HCC) Type 2 diabetes mellitus with diabetic chronic kidney disease (HCC) Chronic kidney disease, stage 3a ([facility]-HCC) 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 Type 2 diabetes mellitus with diabetic neuropathy, unspecified (HCC) 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) Basal cell carcinoma (BCC) of left side of nose- Primary Uncontrolled type 2 diabetes mellitus with hypoglycemia, unspecified hypoglycemia coma status (HCC) 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, unspecified laterality (HCC) Type 2 diabetes mellitus with diabetic chronic kidney disease (HCC) Chronic kidney disease, stage 3b ([facility]) Acquired hypothyroidism Unspecified hypothyroidism Other chest pain- Primary Asthma, unspecified asthma severity, unspecified whether complicated, unspecified whether persistent (HCC) Uncontrolled type 2 diabetes mellitus with hypoglycemia, unspecified hypoglycemia coma status (HCC) documented in this encounter [facility] HealthcareEvaluation note* Diagnosis Encounter to establish [...] asthma, unspecified asthma severity, unspecified whether persistent ([facility]) Never smoked tobacco Obesity (BMI 30-39.9) History of fall Personal history of fall documented in this encounter [facility] Work Phone: Evaluation note* Diagnosis Diabetic autonomic neuropathy associated with type 2 diabetes mellitus (HCC)- Primary Type II or unspecified type diabetes mellitus with neurological manifestations, not stated as uncontrolled Edema, unspecified type Degeneration of lumbar intervertebral disc Degeneration of lumbar or lumbosacral intervertebral disc Vitamin D deficiency Diabetic nephropathy associated with type 2 diabetes mellitus (HCC) Morbid obesity ([facility]-HCC) Morbid obesity Diabetes insipidus (HCC) Diabetes insipidus 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 Stage 3a chronic kidney disease ([facility]-HCC) Stage 3 chronic kidney disease, unspecified whether stage 3a or 3b CKD ([facility])- Primary Diabetes insipidus (HCC) Diabetes insipidus Acquired [...] kidney disease Stage 3a chronic kidney disease ([facility]) Flatulence, eructation and gas pain Flatulence, eructation, [...] pain type Stage 3a chronic kidney disease ([facility])- Primary Vitamin D deficiency Hypothyroidism, unspecified type Morbid (severe) obesity due to excess calories (E66.01) Type 2 diabetes mellitus with diabetic autonomic neuropathy, with long-term current use of insulin ([facility]) Body mass index [BMI] 37.0-37.9, adult (Z68.37) Diabetic nephropathy associated with type 2 diabetes mellitus (HCC) Closed fracture of left foot with delayed healing, subsequent encounter Diabetic nephropathy associated with type 2 diabetes mellitus (HCC)- Primary Type 2 diabetes mellitus with diabetic autonomic neuropathy, with long-term current use of insulin ([facility]) Routine general medical examination at health care [...] Morbid (severe) obesity due to excess calories ([facility]) Body mass index (BMI) 35.0-35.9, adult Type [...] disease (HCC) Chronic kidney disease, stage 3a ([facility]) 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 Type 2 diabetes mellitus with diabetic neuropathy, unspecified (HCC) USP (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 of insulin (HCC) Basal cell carcinoma (BCC) of left side of nose- Primary Uncontrolled type 2 diabetes mellitus with hypoglycemia, unspecified hypoglycemia coma status (HCC) 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, unspecified laterality (HCC) Type 2 diabetes mellitus with diabetic chronic kidney disease (HCC) Chronic kidney disease, stage 3b ([facility]) Acquired hypothyroidism Unspecified hypothyroidism Other chest pain- Primary Asthma, unspecified asthma severity, unspecified whether complicated, unspecified whether persistent (HCC) Uncontrolled type 2 diabetes mellitus with hypoglycemia, unspecified hypoglycemia coma status (HCC) Seborrheic keratosis- Primary History of basal cell carcinoma Personal history of other malignant neoplasm of skin Seborrheic keratosis, inflamed Actinic keratosis Milia Sebaceous cyst documented in this encounter [facility] HealthcareEvaluation note* Diagnosis Other chest pain [...] Other specified counseling documented in this encounter [facility] Work Phone: Evaluation note* Diagnosis Holter monitor, abnormal- Primary Essential (primary) hypertension Unspecified essential hypertension Murmur, cardiac Undiagnosed cardiac murmurs LVH (left ventricular hypertrophy) Cardiomegaly Diastolic dysfunction Unspecified heart disease Chronic fatigue Other malaise and fatigue Dizziness and giddiness Near syncope Acute diastolic heart failure Mixed hyperlipidemia Hypothyroidism, unspecified type Localized edema Edema Encounter to discuss test results Other specified counseling Type 2 diabetes mellitus with stage 3 chronic kidney disease, with long-term current use of insulin, unspecified whether stage 3a or 3b CKD ([facility]) Never smoked tobacco Morbid obesity with body mass index (BMI) of 40.0 or higher ([facility]) Second degree heart block Other second degree atrioventricular block SSS (sick sinus syndrome) ([facility]) Sinoatrial node dysfunction NSVT (nonsustained ventricular tachycardia) ([facility]) documented in this encounter [facility] Work Phone: Hospital Discharge instructions Additional Instructions No exertional activity Alternate between Tylenol and Motrin for pain May shower in 24 hours, blot wound dry and apply ointment Call the office for any questions or concerns Finish your current course of antibiotic Apply antibiotic ointment to the wound [facility] Phone: Reason for referral (narrative)No reason for referral information [facility] Work Phone: Summary Purpose Family History No [...] Nasal Wound June 27, 2024 2:55 pm Chief Complaint Admit Date [id number] [id number] i50.January 10, 2025 10:55am Additional Source Comments INFORMATION SOURCE (unrecogn ized section and content) DATE CREATED AUTHOR 03/07/2022 [facility] DATE CREATED AUTHOR AUTHOR'S ORGANIZ ATION 08/23/[address] [facility]ical Specialist DATE CREATED AUTHOR AUTHOR'S ORGANIZ ATION 08/14/2024 [facility] DATE CREATED AUTHOR AUTHOR'S ORGANIZ ATION 12/07/[address] [facility] Specialists EPIC DATE CREATED AUTHOR AUTHOR'S ORGANIZ ATION 01/05/2025 [facility] DATE CREATED AUTHOR AUTHOR'S ORGANIZ ATION 01/31/2025 [facility] Care Teams (unrecognized sec tion and content) Wine Maker Relationship Specialty Start Date End Date Bautista Thayer MD [address] [place] [address] [facility] [address] [place] [address] PCP - Devoted 04/24/20 Bautista Thayer MD [address] [place] [address] [facility] [address] [place] [address] PCP - General Family Medicine 09/01/22 Wine Maker Relationship Specialty Start Date End Date Bautista Thayer MD [address] [place] [address] [place] [address] PCP - Devoted 04/24/20 Bautista Thayer MD [address] [place] [address] [place] [address] PCP - General Family Medicine 09/01/22 Wine Maker Relationship Specialty Start Date End Date Bautista Thayer MD [address] [place] [address] [place] [address] PCP - Devoted 04/24/20 Bautista Thayer MD [address] [place] [address] [place] [address] PCP - General Family Medicine 09/01/22 Wine Maker Relationship Specialty Start Date End Date Bautista Thayer MD [address] [place] [address] [place] [address] PCP - Devoted 04/24/20 Bautista Thayer MD [address] [place] [address] [place] [address] PCP - General Family Medicine 09/01/22 Wine Maker Relationship Specialty Start Date End Date Bautista Thayer MD [address] [place] [address] [place] [address] PCP - Devoted 04/24/20 04/23/24 Bautista Thayer MD [address] [place] [address] [place] [address] PCP - General Family Medicine 09/01/22 Wine Maker Relationship Specialty Start Date End Date Bautista Thayer MD [address] [place] [address] [place] [address] PCP - Devoted 04/24/20 04/23/24 Bautista Thayer MD [address] [place] [address] [place] [address] PCP - General Family Medicine 09/01/22 Wine Maker Relationship Specialty Start Date End Date Bautista Thayer MD [address] [place] [address] [place] [address] PCP - Devoted 04/24/20 04/23/24 Bautista Thayer MD [address] [place] [address] [place] [address] PCP - General Family Medicine 09/01/22 Wine Maker Relationship Specialty Start Date End Date Bautista Thayer MD [address] [place] [address] [place] [address] PCP - Devoted 04/24/20 04/23/24 Bautista Thayer MD [address] [place] [address] [place] [address] PCP - General Family Medicine 09/01/22 Wine Maker Relationship Specialty Start Date End Date Bautista Thayer MD [address] [place] [address] [place] [address] PCP - Devoted 04/24/20 04/23/24 Bautista Thayer MD [address] [place] [address] [place] [address] PCP - General Family Medicine 09/01/22 Wine Maker Relationship Specialty Start Date End Date Bautista Thayer MD [address] [place] [address] [place] [address] PCP - General Family Medicine 09/01/22 Wine Maker Relationship Specialty Start Date End Date Bautista Thayer MD [address] [place] [address] [place] [address] PCP - General Family Medicine 09/01/22 Wine Maker Relationship Specialty Start Date End Date Bautista Thayer MD [address] [place] [address] [place] [address] PCP - General Family Medicine 09/01/22 Britni Irwin, RN Clinical Advocate Family Medicine 05/31/24 Wine Maker Relationship Specialty Start Date End Date Bautista Thayer MD [address] [place] [address] [place] [address] PCP - General Family Medicine 09/01/22 Britni Irwin, RN Clinical Advocate Family Medicine 05/31/24 Wine Maker Relationship Specialty Start Date End Date Bautista Thayer MD [address] [place] [address] [place] [address] PCP - General Family Medicine 09/01/22 Britni Irwin, RN Clinical Advocate Family Medicine 05/31/24 Team Status: Active Member Role Status Dates Bautista Thayer MD Primary Care Provider Active Team Status: Inactive Member Role Status Taran Valencia DO Attending Provider Active S tart: June 24, 2024 End: June 24, 2024 Bautista Thayer MD Primary Care Provider Active S tart: June 24, 2024 End: June 24, 2024 Team Status: Inactive Member Role Status Taran Valencia DO Attending Provider Active S tart: June 27, 2024 End: June 27, 2024 Bautista Thayer MD Primary Care Provider Active S tart: June 27, 2024 End: June 27, 2024 Wine Maker Relationship Specialty Start Date End Date Bautista Thayer MD [address] [place] [address] [facility] [address] [place] [address] PCP - General Family Medicine 09/01/22 Britni Irwin, RN Clinical Advocate Family [facility] 05/31/24 [facility]ell [facility]lamas [facility] [address] [facility] [address] [place] [address] Referring Physician Dermatology 07/03/24 Eriberto Hdez, DO [address] [place] [address] Otolaryngology 07/03/24 Wine Maker Relationship Specialty Start Date End Date Bautista Thayer MD [address] [place] [address] [facility] [address] [place] [address] PCP - General Family Medicine 09/01/22 Bautista Thayer MD [address] [place] [address] [facility] [address] [place] [address] PCP - Medical [facility] 04/24/2404/23 Vernell Llamas MD [address] [facility] [address] [place] [address] Referring Physician Dermatology 07/03/24 Eriberto Hdez, [address] [place] [address] Otolaryngology 07/03/24 Candice Randle LPN 07/10/24 Wine Maker Relationship Specialty Start Date End Date Bautista Thayer MD [address] [place] [address] [facility] [address] [place] [address] PCP - General Family Medicine 09/01/22 Bautista Thayer MD [address] [place] [address] [facility] [address] [place] [address] PCP - Medical [place] 04/24/2404/23 Vernell Llamas MD [address] [place] [address] Referring Physician Dermatology 07/03/24 Eriberto Hdez, [address] [place] [address] Otolaryngology 07/03/24 Candice Randle LPN 07/10/24 Wine Maker Relationship Specialty Start Date End Date Bautista Thayer MD [address] [place] [address] [facility] [address] [place] [address] PCP - General Family Medicine 09/01/22 Bautista Thayer MD [address] [place] [address] [facility] [address] [place] [address] PCP - Medical [place] 04/24/2404/23 Vernell Llamas MD [address] [facility] [address] [place] [address] Referring Physician Dermatology 07/03/24 Eriberto Hdez, [address] [place] [address] Otolaryngology 07/03/24 Candice Randle LPN 07/10/24 Wine Maker Relationship Specialty Start Date End Date Bautista Thayer MD [address] [place] [address] [facility] [address] [place] [address] PCP - General Family Medicine 09/01/22 Bautista Thayer MD [address] [place] [address] [place] [address] PCP - Medical [place] 04/24/2404/23 Vernell Llamas MD [address] [place] [address] Referring Physician Dermatology 07/03/24 Eriberto Hdez DO [address] [place] [address] Otolaryngology 07/03/24 Candice Randle LPN 07/10/24 Wine Maker Relationship Specialty Start Date End Date Bautista Thayer MD [address] [place] [address] [facility] [address] [place] [address] PCP - General Family Medicine 09/01/22 Bautista Thayer MD [address] [place] [address] [facility] [address] [place] [address] PCP - Medical [place] 04/24/2404/23 Vernell Llamas MD [address] [place] [address] Referring Physician Dermatology 07/03/24 Eriberto Hdez DO [address] [place] [address] Otolaryngology 07/03/24 Candice Randle LPN [address] [place] [address] [place] [address] 07/10/24 Wine Maker Relationship Specialty Start Date End Date Bautista Thayer MD [address] [place] [address] [place] [address] PCP - General Family Medicine 09/01/22 Bautista Thayer MD [address] [place] [address] [place] [address] PCP - Medical [place] 04/24/2404/23 Vernell Llamas MD [address] [place] [address] Referring Physician Dermatology 07/03/24 Eriberto Hdez DO [address] [place] [address] Otolaryngology 07/03/24 Candice Randle LPN [address] [place] [address] [place] [address] 07/10/24 Wine Maker Relationship Specialty Start Date End Date Bautista Thayer MD [address] [place] [address] [place] [address] PCP - General Family Medicine 11/11/24 Wine Maker Relationship Specialty Start Date End Date Bautista Thayer MD [address] [place] [address] [place] [address] PCP - General Family Medicine 09/01/22 Bautista Thayer MD [address] [place] [address] [place] [address] PCP - Medical [place] 04/24/2404/23 Vernell Llamas MD [address] [place] [address] Referring Physician Dermatology 07/03/24 Eriberto Hdez DO [address] [place] [address] Otolaryngology 07/03/24 Candice Randle LPN [address] [place] [address] [place] [address] 07/10/24 Wine Maker Relationship Specialty Start Date End Date Bautista Thayer MD [address] [place] [address] [place] [address] PCP - General Family Medicine 09/01/22 Bautista Thayer MD [address] [place] [address] [place] [address] PCP - Medical [facility] 04/24/2404/23 Vernell Llamas MD [address] [facility] [address] [place] [address] Referring Physician Dermatology 07/03/24 Eriberto Hdez, [address] [place] [address] Otolaryngology 07/03/24 Candice Randle LPN [address] [place] [address] [place] [address] 07/10/24 Wine Maker Relationship Specialty Start Date End Date Bautista Thayer MD [address] [place] [address] [place] [address] PCP - General Family Medicine 11/11/24 Wine Maker Relationship Specialty Start Date End Date Bautista Thayer MD [address] [place] [address] [facility] [address] [place] [address] PCP - General Family Medicine 09/01/22 Bautista Thayer MD [address] [place] [address] [facility] [address] [place] [address] PCP - Medical [facility] 04/24/2404/23 Vernell Llamas MD [address] [place] [address] Referring Physician Dermatology 07/03/24 Eriberto Hdez DO [address] [place] [address] Otolaryngology 07/03/24 Candice Randle LPN [address] [place] [address] [facility] [address] [place] [address] 07/10/24 Wine Maker Relationship Specialty Start Date End Date Bautista Thayer MD [address] [place] [address] [facility] [address] [place] [address] PCP - General Family Medicine 11/11/24 Team Status: Inactive Member Role Status Dates Bautista Thayer MD Primary Care Provider Active S tart: January 10, 2025 End: January 10, 2025 Nagi James MD Attending Provider Active Start: January 10, 2025 End: January 10, 2025 Reason for Visit (unrecogniz ed section and [...] establish care Procedures ECG 12 Lead Nagi James MD [address] [place] [address] Phone: tel: fax: Referral ID Status Reason Start Date Expiration Date V isits Requested Visits Authorized [id number] Authorized 11/21/2024 11/21/2025 1 1 Reason Comments Follow-up Holter monitor resul ts Specialty Diagnoses / Procedures Referred By Kate ferreira Referred To Contact Cardiology Diagnoses Other chest pain Procedures Follow Up In Cardiology Nagi James MD [address] [place] [address] Phone: tel: fax: Nagi James MD [address] [place] [address] Phone: tel: fax: Referral ID Status Reason Start Date Expiration Date V isits Requested Visits Authorized [id number] Authorized 11/21/2024 11/21/2025 1 1 Reason Comments Follow-up 2 week Follow up for heart failure Specialty Diagnoses / Procedures Referred By Kate ferreira Referred To Contact Cardiology Diagnoses Essential (primary) [...] results Procedures Follow Up In Cardiology Nagi James MD [address] [address] Phone: tel: fax: Nagi James MD [address] [address] Phone: tel: fax: Referral ID Status Reason Start Date Expiration Date V isits Requested Visits Authorized [id number] Authorized 12/19/2024 12/19/2025 1 1 Goals (unrecognized section and content) Goals may be documented in a n alternate sectionGoals may be documented in an alternate section FOR RECORDS PERTAINING TO PATIENTS [...] BE BASED ON THE PRIMARY CLINICAL RECORDS. [facility] [employer] [facility]. provides no warranty or guarantee of the accuracy or completeness of information in this document.
[2025-02-05 12:19] LABS: Hematocrit 34.4 % (36.0-48.0); Hemoglobin 10.8 g/dL (12.0-16.0); Immature Granulocytes Abs Auto 0.04 10^3/uL (0.00-0.03); Immature Granulocytes Pct Auto 0.5 % (0.0-0.5); Lymphocytes Absolute Auto 2.4 10^3/uL (1.2-3.8); Mean Corpuscular HGB Conc 31.4 g/dL (29.9-35.2); Mean Corpuscular Hemoglobin 29.3 pg (26.7-34.0); Mean Corpuscular Volume 93.5 fL (81.0-99.0); Platelet Count 181 10^3/uL (150-450); Red Blood Count 3.68 10^6/uL (4.20-5.40); White Blood Count 7.3 10^3/uL (4.0-11.0)
[2025-02-05 12:40] LABS: Alanine Aminotransferase 17 U/L (14-59); Albumin Globulin Ratio 1.1; Albumin Level 3.5 g/dL (3.4-5.0); Alkaline Phosphatase 70 U/L (46-116); Anion Gap 14.5; Aspartate Amino Transferase 19 U/L (15-37); Blood Urea Nitrogen 47.0 mg/dL (7.0-18.0); Calcium 9.0 mg/dL (8.5-10.1); Carbon Dioxide 27.7 mmol/L (21.0-32.0); Chloride 108 mmol/L (98-107); Estimated GFR (African America 52 (>=60 mL/min/1.73m^2); Estimated GFR (Non-African Ame 43 (>=60 mL/min/1.73m^2); Globulin 3.3 g/dL; Glucose 110 mg/dL (74-106); Magnesium 1.9 mg/dL (1.8-2.4); Potassium 5.2 mmol/L (3.5-5.1); Sodium 145 mmol/L (136-145); Thyroid Stimulating Hormone 1.748 uIU/mL (0.358-3.740); Total Protein 6.8 g/dL (6.4-8.2)
== END 2025-02-05 11:20 | disposition home or self-care (01) ==
LOC: LAB 11:22
PROVIDERS: PCP Family Medicine; Visit Provider Internal Medicine Cardiovascular Disease
DX: R53.82 Chronic fatigue, unspecified (principal); I50.31 Acute diastolic (congestive) heart failure; R60.0 Localized edema; E03.9 Hypothyroidism, unspecified
CPT/HCPCS: 36415; 80053; 83735; 84443; 85025